=== PATIENT | female | born 1950 | race Caucasian/White ===

== ENCOUNTER 2020-01-28 10:02 | Outpatient (CLI) | payer MEDICARE, OTHER, SELFPAY ==
--- NOTE | 2020-01-28 10:17 | MM_ITS ---
WS: [id number] DIAGNOSTIC BILATERAL DIGITAL MAMMOGRAM WITH CAD LEFT breast ultrasound, limited HISTORY: LT BREAST MASS COMPARISON: 02/08/2019, 01/24/2019, 12/28/2017. TECHNIQUE: Bilateral craniocaudad, mediolateral oblique, and mediolateral views are submitted. Spot c ompression LEFT MLO. Computer aided detection utilized. Breast composition: There are scattered areas of fibroglandular density. Palpable marker is placed in ferior and just medial to the nipple. There is no underlying soft tissue abnormality identified. No s kin thickening or distortion. LEFT breast ultrasound, limited. Ultrasound is directed to the palpable abnormality at 7:00. There is no abnormality identified. No ma ss or soft tissue thickening or increased vascularity. MM/[place] [id number] IMPRESSION: BI-RADS: 2-Benign FOLLOW UP: 1 Year Follow-up
== END 2020-01-28 10:03 | disposition home or self-care (01) ==
LOC: RADSHAW 10:05
PROVIDERS: Family Provider Family Medicine; PCP Family Medicine; Visit Provider Family Medicine
DX: N63.20 Unspecified lump in the left breast, unspecified quadrant (principal)
CPT/HCPCS: 76642; 77066

== ENCOUNTER → 2020-05-07 08:14 | Outpatient (BNVA) | payer MEDICARE, OTHER, SELFPAY | PROVIDERS: Family Provider Family Medicine; PCP Family Medicine; Visit Provider Specialist | DX: M17.0 Bilateral primary osteoarthritis of knee (principal) | CPT/HCPCS: 73560; 73565 ==

== ENCOUNTER → 2020-05-09 08:17 | Outpatient (BNVA) | payer MEDICARE, OTHER, SELFPAY | PROVIDERS: Family Provider Family Medicine; PCP Family Medicine; Referring Provider Specialist; Visit Provider Anesthesiology Pain Medicine | DX: M16.11 Unilateral primary osteoarthritis, right hip (principal); M17.0 Bilateral primary osteoarthritis of knee; Z79.891 Long term (current) use of opiate analgesic | CPT/HCPCS: 99204 ==

== ENCOUNTER → 2020-05-14 13:58 | Outpatient (BNVA) | payer MEDICARE, OTHER, SELFPAY | PROVIDERS: Family Provider Family Medicine; PCP Family Medicine; Visit Provider Anesthesiology Pain Medicine | DX: M16.11 Unilateral primary osteoarthritis, right hip (principal); Z79.891 Long term (current) use of opiate analgesic | CPT/HCPCS: 20610; 77002; 77003; J1030; J3490 ==

== ENCOUNTER → 2020-05-30 09:25 | Outpatient (BNVA) | payer MEDICARE, OTHER, SELFPAY | PROVIDERS: Family Provider Family Medicine; PCP Family Medicine; Visit Provider Anesthesiology Pain Medicine | DX: M17.0 Bilateral primary osteoarthritis of knee (principal); M16.11 Unilateral primary osteoarthritis, right hip; Z79.01 Long term (current) use of anticoagulants | CPT/HCPCS: 99212; G0463 ==

== ENCOUNTER → 2020-06-12 09:30 | Outpatient (BNVA) | payer MEDICARE, OTHER, SELFPAY | PROVIDERS: Family Provider Family Medicine; PCP Family Medicine; Visit Provider Specialist | DX: M16.11 Unilateral primary osteoarthritis, right hip (principal) | CPT/HCPCS: 73502 ==

== ENCOUNTER → 2020-06-18 09:37 | Outpatient (BNVA) | payer MEDICARE, OTHER, SELFPAY | PROVIDERS: Family Provider Family Medicine; PCP Family Medicine; Visit Provider Internal Medicine Pulmonary Disease | DX: Z20.828 Contact with and (suspected) exposure to other viral communicable diseases (principal) | CPT/HCPCS: 87635 ==

== ENCOUNTER 2020-06-23 13:25 | Outpatient (CLI) | payer MEDICARE, OTHER, SELFPAY ==
--- NOTE | 2020-06-23 13:36 | CT_ITS ---
WS: [id number] LDCT LUNG CANCER SCREENING HISTORY: HX OF TOBACCO USE TECHNIQUE: Axial imaging performed from the apices to 1 cm below the costophrenic angles. Coronal and sagittal reformats are submitted with axial MIP series. All CT scans at [facility] use at least one of these dose optimization techniques: automated exposure control; mA and/or kV adjustment per patient size (includes targeted exams where dose is matched to clinical indication); or iterativ e reconstruction. DLP: 69.69 mGy.cm DIvol: 1.97 mGy COMPARISON: None available. Diagnostic quality: Satisfactory Lung Nodules: Linear scarlike areas of atelectasis at the lung bases. No pulmonary nodules. No endobr onchial lesions are identified. Lungs: Hyperexpanded lungs with emphysema. Heart: Normal size heart. Heavy calcification along the mitral annular valve plane. Moderate calcific ations in the [place] coronary arteries. Other findings: Mild atherosclerosis aorta. Mildly enlarged pulmonary artery. CT/CT lung screening [id number] IMPRESSION: LUNG-RADS: 1-Negative FOLLOW UP: 12 Month: Continue annual screening with LDCT OTHER FINDINGS (S MODIFIER): None.
--- NOTE | 2020-06-23 14:12 | PFTS_ITS ---
Date of Study:06/23/20 Date of Dictation: MECHANICS: Forced vital capacity (FVC) is normal. Forced expiratory volume in one second (FEV1) is reduced. FEV1/FVC is reduced. FLOW VOLUME LOOP: Reduced flow at all lung volumes with significant scooping. LUNG VOLUMES: Total lung capacity (TLC) is normal. Residual volume (RV) is increased. DIFFUSING CAPACITY FOR CARBON MONOXIDE: Not measured. INTERPRETATION: The pulmonary function tests are consistent with severe airflow obstruction. Lung volumes are consistent with air trapping. Gas exchange (DLCO) was not measured. MTDD
== END 2020-06-23 13:26 | disposition home or self-care (01) ==
LOC: RT 13:28
PROVIDERS: PCP Family Medicine; Visit Provider Internal Medicine Pulmonary Disease
DX: Z12.2 Encounter for screening for malignant neoplasm of respiratory organs (principal); Z87.891 Personal history of nicotine dependence
CPT/HCPCS: 94010; 94726; 94729; G0297

== ENCOUNTER → 2020-07-03 08:59 | Outpatient (BNVA) | payer MEDICARE, OTHER, SELFPAY | PROVIDERS: PCP Family Medicine; Visit Provider Specialist | DX: Z11.59 Encounter for screening for other viral diseases (principal) | CPT/HCPCS: 87635 ==

== ENCOUNTER 2020-07-08 14:50 | Observation (INO) | payer MEDICARE, OTHER, SELFPAY ==
[2020-07-01 09:32] VITALS: BMI 39.9
--- NOTE | 2020-07-01 09:51 | P.ANESASSM_ITS ---
Pre-Anesthetic Assessment Pre-Anesthetic Assessment: Height/Weight: Height 1.7 m Weight 115.666 kg Preop Diagnosis: Hip pain Proposed Procedure: Operation Date: 07/08/20 10:00 Proposed Procedures p Total Hip Arthroplasty 52648 M16.9(Right) - Veronique Keith MD Familial anesthetic complications: None Social: Comment: former smoker - quit 11 years ago Exam: Pre-Anes Outpt Exam: alert, oriented x 3, clear to auscultation bilaterally and regular rate & rhythm Airway: Cervical ROM: WNL MP: 2 Dentition: False Pulmonary: Pulmonary: COPD (4 L NC during day and trilogy at night) and Sleep apnea CV/HEM: CV/HEM: Afib (on diltiazem) and HTN GI: GI: GERD Metabolic: Metabolic: DM Musc/skel: Musc/skel: OA/DJD Anesthetic Plan: ASA status: 4 Anesthesia: General Risk of > 500 ml blood loss (7ml/kg in children): No PFSH Anesthesia PFSH: Medical History (Updated 06/17/20 @ 09:23 by Dk Turner MD) A-fib Anticoagulation adequate with anticoagulant therapy Xarelto Diabetes Essential hypertension Gout History of cellulitis 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 Morbid obesity Osteoarthritis of knees, bilateral Osteoarthritis of right hip Oxygen dependent Pain management contract signed Psoriasis Sleep apnea Surgical History History of appendectomy History of carpal tunnel release History of hysterectomy History of tonsillectomy History of tubal ligation Family History Denies family history of Anesthesia complication Social History Smoking and tobacco status: former smoker Quit status (tobacco): has quit using tobacco Year quit tobacco: 2009 [id number] Second hand smoke exposure: Yes Smoking risk assessment/counseling performed?: No Alcohol intake: current Alcohol intake frequency: holidays/special occasions only Lives independently: Yes Household members: none Housing: Apartment Marital status: Current occupational status: retired and disabled History of recent travel: No Current gender identity: Female Data Anesthesia Cardiac Studies: No Data to Display
[2020-07-01 10:28] LABS: Basophils # 0.1 10^3/uL (0.0-0.1); Eosinophils # 0.2 10^3/uL (0.0-0.8); Eosinophils % 3.4 %; Hematocrit 40.9 % (37.0-47.0); Hemoglobin 12.9 g/dL (11.5-15.3); Lymphocytes # 0.9 10^3/uL (0.8-4.8); Lymphocytes % 13.9 %; Mean Corpuscular HGB Conc 31.5 g/dL (30.0-36.0); Mean Corpuscular Volume 88.9 fL (81-99); Mean Platelet Volume 9.4 fL (7.4-10.4); Monocytes # 0.5 10^3/uL (0.2-0.9); Monocytes % 8.6 %; Neutrophils # 4.48 10^3/uL (1.8-7.7); Neutrophils % 72.6 %; Nucleated Red Blood Cells % 0 %; Platelet Count 269 10^3/cmm (130-400); Red Cell Distribution Width 12.4 % (12.1-15.1); White Blood Count 6.2 10^3/uL (4.0-10.0)
[2020-07-01 10:50] LABS: Add Urine Microscopic? YES; Alanine Aminotransferase 40 U/L (0-33); Albumin Level 4.2 g/dL (3.5-5.2); Alkaline Phosphatase 126 IU/L (35-105); Anion Gap 10.6 (5-19); Aspartate Amino Transferase 24 U/L (0-32); Bilirubin Urine Neg (Negative); Blood Urea Nitrogen 16 mg/dL (8-23); Blood Urine Neg (Negative); Carbon Dioxide 34 mmol/L (22-29); Chloride 102 mmol/L (98-107); Globulin 2.2 g/dL (1.3-4.6); Glucose 108 mg/dL (65-115); Glucose Urine UA Norm (Normal); Ketones Urine Negative (Negative); Leukocyte Esterase Urine Negative (Negative); Nitrate Urine Positive (Negative); Osmolality Calculated 296 mOsm/kg (285-295); Potassium 4.6 mmol/L (3.5-5.1); Protein Urine Neg (Negative); Sodium 142 mmol/L (136-145); Specific Gravity, Urine 1.015 (1.005-1.030); Sulfosalicylic Acid Urine Trace (Negative); Total Bilirubin 0.4 mg/dL (0.15-1.2); Total Protein 6.4 g/dL (6.6-8.7); Urine Appearance Hazy (CLEAR); Urine Color Yellow (Yellow); Urobilinogen Urine Neg (Negative); pH Urine 8 (5-7)
[2020-07-01 10:51] LABS: Bacteria Urine 4+ /hpf; WBC Urine 25-40 /hpf (0-5)
[2020-07-01 10:52] LABS: Add Urine Culture? Yes
[2020-07-08] VITALS (13 sets, daily range): BP systolic 94–128; BP diastolic 56–78; PULSE 60–85; RESP 16–24; TEMP 35.9–36.8; O2SAT 96–100
--- NOTE | 2020-07-08 10:34 | ECG_ITS ---
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 Measurements Intervals [place] Rate: 68 P: 0 W[place]: 179 QRS: -29 QRSD: 95 T: 20 QT: 393 QTc: 420 Interpretive Statements SINUS RHYTHM BORDERLINE LEFT AXIS DEVIATION [QRS AXIS < -20] LOW QRS VOLTAGE IN PRECORDIAL LEADS [QRS DEFLECTION < 1.0 mV IN CHEST LEADS] PATTERN CONSISTENT WITH PULMONARY DISEASE No previous ECG available for comparison Electronically Signed On 07-08-2020 19:25:43 SHREDDING SPECIALIST by Mimi De Santiago M.D. [email or web address]
--- NOTE | 2020-07-08 10:48 | W.PM.OPSUD ---
Surgery/Procedure H&P Update DATE OF PROCEDURE: July 08, 2020 DATE H&P PERFORMED: 06/12/20 H&P UPDATE INFORMATION: I have reviewed H&P completed within last 30 days, I have examined patient prior to procedure, No changes to prior documentation and H&P is in [facility] EMR on date indicated PREOP DIAGNOSIS: Severe degenerative osteoarthritis right hip PLANNED PROCEDURE: Operation Date: 07/08/20 10:00 Proposed Procedures p Total Hip Arthroplasty 68193 M16.9(Right) - Veronique Keith MD Related Problem List Diagnoses (1) Osteoarthritis of right hip: Qualifiers: Osteoarthritis type: primary Qualified Code(s): M16.11 - Unilateral primary osteoarthritis, right hip
[2020-07-08] MEDS: sodium chloride 0.9% 1,000 ML 30 ML IV (10:50)
[2020-07-08] MEDS: CELEcoxib 200 mg Capsule 400 MG PO (10:52)
[2020-07-08 10:55] LABS: Glucose Point of Care 93 mg/dL (70-110)
--- NOTE | 2020-07-08 10:57 | P.ANESUD_ITS ---
Pre-Anesthetic Update Pre-Anesthetic Assessment: Date of Surgery/Procedure: 07/08/20 Preop Rochelle gnosis: Severe degenerative osteoarthritis right hip Proposed Procedure: Operation Date: 07/08/20 10:00 Proposed Procedures p Total Hip Arthroplasty 15019 M16.9(Right) - Veronique Keith MD Any changes to Pre-Anesthetic Assessment?: No Last Intake: Intake Last Liquid Date 07/07/20 Last Liquid Time 21:00 Last Solid Date 07/07/20 Last Solid Time 15:00 Labs Last 48hrs: Laboratory Results - last 48 hr 07/08/20 10:54 POC Glucose 93 Vitals: Temperature 97.1 F L 07/08/20 10:29 Pulse Rate 67 07/08/20 10:29 Respiratory Rate 22 H 07/08/20 10:29 Blood Pressure 128/78 07/08/20 10:29 Blood Pressure Rosamaria n 94 07/08/20 10:29 Pulse Oximetry 98 07/08/20 10:29 Oxygen Delivery Me thod 07/08/20 10:42 Oxygen Flow Rate 4 07/08/20 10:29 Exam: Pre-Anes Outpt Exam: alert, oriented x 3, clear to auscultation bilaterally and regular rate & rhythm Other Pertinent Information: Other Pertinent Information: Patient last took rivarxaban 5 days ago Cardiac Studies: No Data to Display
[2020-07-08] MEDS: vancomycin 1,000 MG in sodium chloride 0.9% 250 ML 250 MG IV (10:59)
[2020-07-08] MEDS: ceFAZolin 1,000 mg SDV 1000 MG IRRIGATION (11:54)
[2020-07-08] MEDS: vancomycin 1,000 MG SDV 1000 MG XX (11:55)
--- NOTE | 2020-07-08 12:17 | SUR.OPER ---
1245 attempted to contact family with surgical update
--- NOTE | 2020-07-08 12:19 | SUR.OPER ---
1219 patient family updated of surgical status
--- NOTE | 2020-07-08 13:23 | SUR.OPER ---
1323 PATIENT FAMILY UPDATED OF SURGICAL STATUS.
--- NOTE | 2020-07-08 14:31 | XR_ITS ---
WS: [id number] XR pelvis 1-2V* [id number] REASON FOR EXAM: Status post right total hip arthroplasty FINDINGS: Total right hip arthroplasty. Components of the surgical appliance are in proper position and alignme nt. No bony abnormality is noted. XR/XR pelvis 1-2V* [id number] IMPRESSION: Total right hip arthroplasty with no abnormality identified.
--- NOTE | 2020-07-08 14:41 | SUR.PHASEI ---
1441 PT AWAKE ALERT ON 4LNC PRE SURGERY, PT WAS A SPINAL WITH MAC SEDATION, SPINAL LEVEL AT T-12 PT CAN MOVE BILAT TOES, OVIEDO TO DD WITH YELLOW URINE DRAINING,TO BAG, ABD PILLOW IN PLACE FIRST ICE TO RT HIP, DISTAL FOOT WITH STRONG REGULA PULSE NOTED. VSS.
--- NOTE | 2020-07-08 14:47 | P.OP_ITS ---
Operative Report Date of procedure: July 08, 2020 Pre-op Diagnosis: Severe degenerative osteoarthritis right hip Post-op diagnosis: same Post-op Findings: Morbid obesity impacting exposure with severe degenerative osteoarthritis Procedure Done: Right total hip arthroplasty utilizing the following implants from the [employer]ueroa Accolade II total hip system: The size 56 mm solid back acetabular shell with an F alpha code and an MDM liner size 46 mm inner diameter by F alpha code. An Accolade II size 8 x 127 degree neck angle hip stem, femoral head size 28 mm outer diameter with a 0 mm offset inside of an MDM insert size inner diameter 28 mm to match the 46F Implants: See procedure Specimens removed/disposition: Bone, disposed of Pathology: none sent Surgeon: Veronique Keith Peanut Picker: [facility] OR technicians Anesthesia: MAC (With spinal) Estimated blood loss (mL): 600 IV fluids (mL): 2,000 Urine output (mL): 150 Complications: None Findings: Severe degenerative osteoarthritis. The hip was stable at 90 degrees of flexion with 80 degrees of internal rotation and 30 degrees of adduction. Additionally, the hip was stable to external rotation and toe hang. Leg lengths appeared to be reestablished. Condition: stable Disposition: PACU (Then to floor for postoperative rehabilitation and pain management.) Brief History: This 70-year-old woman presented with complaints of severe hip pain limiting her ability to walk. She was unable to get up and down from a chair easily. She was unresponsive to conservative measures and wished to proceed with total hip arthroplasty. Risks and complications were discussed with her. She wished to proceed and consents were signed. Questions were answered. Procedure: Patient was brought to the operating theater. She was transferred to the operating room table and subsequently administered a spinal anesthesia with MAC, ASA 4. Following administration of adequate anesthesia, the patient was placed in full lateral position and held in position with a pegboard. The patient's right lower extremity was then prepped and draped in usual fashion utilizing DuraPrep. It was draped free. Following prepping and draping a surgical pause was performed. At the time of the surgical pause, we identified the site and side of surgery. We also identified the patient and preoperative surgical markings. Confirmation was made of equipment availability. Additionally, the patient's preoperative IV antibiotic, vancomycin 1 g and TXA 1 g preoperatively was confirmed as being given in a timely fashion and being the appropriate. An additional dose of TXA was to be given postoperatively as well. Following the surgical pause, an incision was made centering over the patient's greater trochanter continuing proximally and distally as necessary to allow access to the hip joint. Dissection continued through skin and soft tissues using a scalpel, and hemostasis was obtained using electrocautery. The tensor fascia clay was identified and incised longitudinally. Sciatic nerve was identified and protected throughout the surgical procedure. The patient had significantly increased subcutaneous fatty tissue. This made the procedure and exposure as well as access to the acetabulum and femur difficult. A Charnley U retractor was placed after the tensor fascia clay had been incised longitudinally, and the sciatic nerve had been identified. The hip had significant limitation in range of motion, and most particularly, and internal rotation. Retractors were placed, and the piriformis muscle was identified and tagged. Piriformis muscle along with the remaining short external rotators were then incised from the posterior aspect of the hip joint. These were retracted posteriorly. The capsule was entered in a T-type fashion with the edges being tagged. The head was noted to be deformed. Appropriate oste otomy was performed of the femoral neck following hip dislocation. We then evaluated the the femoral head. The femoral head was measured at this time. Additionally, we evaluated the acetabulum. The femur was retracted anteriorly. Soft tissues were retracted, osteophytes were excised, and the labrum was removed. We then began reaming. Reaming was accomplished sequentially. We reamed to a size 55 to allow for a size 56 acetabular shell. The acetabulum was impacted into position. The dome hole was filled with the appropriate metal plug. Also, we confirmed that the acetabular insert was completely seated prior to addressing the femur. After the acetabulum was in appropriate position, we placed the MDM liner without difficulty. The cup was noted to seat nicely and had good fixation upon impact. Attention was directed to the proximal femur. The proximal femur was lifted out of the wound as much as possible. A canal finder was passed with difficulty after utilization of the box chisel. The reamer was used to lateralize. We then began broaching. We broached sequentially, and placed a size 8 broach in position for trial reduction. A trial reduction was accomplished with initially with a a -4 mm femoral head inside the appropriate MDM insert. We then increased to a 0 mm offset femoral head with the appropriate MDM insert. This was able to be reduced nicely and did not feel over tight. This gave excellent stability, and with this in place, we had the above stabilities, and at that time, we felt that we had acceptable leg lengths. It had been determined preoperatively. Therefore, the 0 mm offset femoral head was chosen. Trial components were removed after the hip was dislocated. The size 8 Accolade II 127 degree neck angle hip stem was impacted into position without difficulty and onto this was placed a 0 mm offset femoral head with the appropriate MDM liner. The hip was then reduced without difficulty. With this construct, we had the above-noted stability. The stem was noted to seat nicely prior to placement of the femoral head. The wound was then copiously irrigated with 20 mL of Betadine and 500 mL of normal saline mixed together. Subsequently, we suctioned this out and irrigated the wound copiously with lactated Ringer's. Following reduction of the prosthesis once again, we confirmed the stability of the hip. Leg lengths were also felt to be satisfactory. Being satisfied with the prosthesis, attention was directed to closure. Closure was accomplished with 0 Vicryl in the capsular tissues. Piriformis was reattached with 0 Vicryl as well. Tensor fascia clay was closed with 0 Vicryl in an interrupted fashion. The subcutaneous tissues were closed with a combination of 0 Vicryl and 2-0 Monocryl. Vancomycin powder and a SurgiFlo thrombin mixture was placed into the wound as well. The skin was closed with a running 3-0 Monocryl followed by Exofin and Steri-Strips. This was covered with Telfa and Tegaderm. The patient was placed in an abduction pillow. She was returned the Recovery Room in a satisfactory condition and will be discharged to the floor for postoperative rehabilitation and pain management. There were no complications. Associated Problem List Diagnoses (1) Osteoarthritis of right hip: Qualifiers: Osteoarthritis type: primary Qualified Code(s): M16.11 - Unilateral primary osteoarthritis, right hip (2) Morbid obesity:
--- NOTE | 2020-07-08 15:07 | SUR.PHASEI ---
1500 PT TO ROOM HANDOFF AT BEDSIDE PT ALERT TALKATIVE TAKING ICE CHIPS RT HIP D/I ABD PILLOW FIRST ICE AND BILAT FOOT PUMPS IN PLACE OVIEDO TO DD WITH YELLOW URINE IN TUBING. VSS. PT DENTURES IN UPPER AND LOWER PER PT REQUEST AND PT CELL PHONE INREACH.
[2020-07-08] MEDS: lactated ringers 1,000 ML 100 ML IV (15:33)
--- NOTE | 2020-07-08 17:35 | PM.PACU ---
PACU note Post-Anesthesia Exam: awake and vital signs stable Disposition: admitted
[2020-07-08] MEDS: FUROsemide 20 mg Tablet PO (17:41)
[2020-07-08] MEDS: sennosides-docusate Tablet 2 TAB PO (17:41)
[2020-07-08] MEDS: pantoprazole DR 40 mg Tablet PO (17:41)
[2020-07-08] MEDS: calcium carbonate 500 mg Chew Tablet 1000 MG PO (17:41)
[2020-07-08] MEDS: CELEcoxib 200 mg Capsule PO (17:41)
[2020-07-08] MEDS: chlorhexidine gluconate 0.12% Btl 473 mL 30 ML MUCOUS MEM ×2 (17:42→21:30)
[2020-07-08] MEDS: iron polysaccharide complex 150 mg Capsule PO (17:42)
[2020-07-08] MEDS: potassium chloride ER 10 mEq Tablet PO (17:42)
[2020-07-09] VITALS: BP 94/51; PULSE 72; RESP 18; TEMP 36.4; O2SAT 90
[2020-07-09 03:48] LABS: Basophils % 0.4 %; Eosinophils # 0.2 10^3/uL (0.0-0.8); Eosinophils % 2.4 %; Hematocrit 33.2 % (37.0-47.0); Hemoglobin 10.2 g/dL (11.5-15.3); Lymphocytes # 0.6 10^3/uL (0.8-4.8); Lymphocytes % 8.1 %; Mean Corpuscular HGB Conc 30.7 g/dL (30.0-36.0); Mean Corpuscular Hemoglobin 28.3 pg (28.0-34.0); Mean Platelet Volume 10.3 fL (7.4-10.4); Monocytes # 0.7 10^3/uL (0.2-0.9); Monocytes % 8.6 %; Neutrophils # 6.03 10^3/uL (1.8-7.7); Neutrophils % 80.1 %; Nucleated Red Blood Cells % 0 %; Platelet Count 225 10^3/cmm (130-400); Red Blood Count 3.61 10^6/uL (4.1-5.3); Red Cell Distribution Width 12.5 % (12.1-15.1); White Blood Count 7.5 10^3/uL (4.0-10.0)
[2020-07-09 04:11] LABS: Anion Gap 9.4 (5-19); Blood Urea Nitrogen 13 mg/dL (8-23); Calcium 9.7 mg/dL (8.5-10.5); Carbon Dioxide 30 mmol/L (22-29); Chloride 103 mmol/L (98-107); Glucose 136 mg/dL (65-115); Osmolality Calculated 288 mOsm/kg (285-295); Potassium 4.4 mmol/L (3.5-5.1); Sodium 138 mmol/L (136-145)
[2020-07-09] MEDS: lactated ringers 1,000 ML 100 ML IV (04:33)
[2020-07-09 08:00] VITALS: BP 107/67; PULSE 97; RESP 17; TEMP 37; O2SAT 99
[2020-07-09] MEDS: calcium carbonate 500 mg Chew Tablet 1000 MG PO (08:20)
[2020-07-09] MEDS: dilTIAZem ER (24HR) 180 mg Capsule PO (08:20)
[2020-07-09] MEDS: metformin 500 mg Tablet PO (08:20)
[2020-07-09] MEDS: rivaroxaban 10 mg Tablet 20 MG PO (08:20)
[2020-07-09] MEDS: CELEcoxib 200 mg Capsule PO (08:20)
[2020-07-09] MEDS: aspirin 325 mg EC Tablet PO (08:20)
[2020-07-09] MEDS: lisinopril 2.5 mg Tablet PO (08:20)
[2020-07-09] MEDS: sennosides-docusate Tablet 2 TAB PO (08:20)
[2020-07-09] MEDS: cholecalciferol (vitamin D3) 1,000 unit Tablet 1000 UNIT PO (08:21)
[2020-07-09] MEDS: fluoxetine 20 mg Capsule PO (08:21)
[2020-07-09] MEDS: chlorhexidine gluconate 0.12% Btl 473 mL 30 ML MUCOUS MEM (08:21)
[2020-07-09] MEDS: FUROsemide 20 mg Tablet PO (08:21)
[2020-07-09] MEDS: pantoprazole DR 40 mg Tablet PO (08:21)
[2020-07-09] MEDS: potassium chloride ER 10 mEq Tablet PO (08:21)
[2020-07-09] MEDS: iron polysaccharide complex 150 mg Capsule PO (08:21)
[2020-07-09] MEDS: allopurinol 100 mg Tablet PO (08:21)
[2020-07-09] MEDS: mupirocin oint 22 gm 1 APPLIC NASAL (08:22)
[2020-07-09 10:54] VITALS: RESP 19
[2020-07-09] MEDS: oxyCODONE 5 mg IR Tab/Cap PO (10:54)
[2020-07-09 11:31] VITALS: BP 97/60; PULSE 85; RESP 18; O2SAT 98
[2020-07-09] MEDS: vancomycin 1,000 MG in sodium chloride 0.9% 250 ML 250 MG IV (11:44)
--- NOTE | 2020-07-09 13:15 | PC.CHAP ---
Pastoral Care Encounter/Spiritual Assessment Type of Contact [] Declined branch store manager visit [] Patient/Family/Request visit [] Outpatient visit [] Follow-up visit [] Physician referral [] Code/Alert [xx] Routine visit [] Staff referral [] Actively dying [] Patient sleeping [] Family support [] [] Out of room [] Palliative care [] [] Receiving care in room [] Pre-surgical visit [] Trauma [] Long length of stay [] ICU visit [] Other: Relational/Emotional Strength [xx] Patient feels connected with others/family/visitors/staff [] Distress [] Loneliness/isolation [] Abandonment Spirituality of Patient [xx] Person of Josette [xx] Attends Catholic of their Josette [xx] Believes in Prayer [xx] Reads Bible or Hinduism materials [] There are Spiritual issues to be addressed Rate Quoting Operator Interventions [xx] Prayer [xx] Active listening [xx] Non-anxious presence [] Spiritual/emotional support [] Crisis/trauma care [] Spiritual counseling [] Bereavement support [] Provided bereavement packet [xx] Provided Bible/devotional materials [] Provided toy/stuffed animal, coloring book to patient or family member [] Provided Communion [] Anointing/[place] [] Salvation [xx] Completed spiritual assessment [] Other: Impact on Illness or Injury [] Angry [] Fearful [] Anxious [] Often cries [] Exhaustion [] Unable to work [] Unable to attend restorationist [] Unable to walk/stand [] Unable to read [] Unable to drive [] Unable to eat/drink [] Unable to sleep [] Unable to be with family [] Patient intubated [] Other: Summary Pt very pleasant and talkative. 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 She lives at the [facility]. She hopes her hip replacement will allow her to continue activities she enjoys. Pt requested I find nurse to help her get up. I did so. Time spent with patient 12 minutes
--- NOTE | 2020-07-09 14:09 | P.DS_ITS ---
Discharge Providers Date of Admission: 07/08/20 14:50 Date of Discharge: July 09, 2020 Attending Provider at Admission: Veronique Keith MD Attending Provider at Discharge: Veronique Keith MD Primary Care Provider: Sylvia Anthony MD Diagnoses at Discharge Discharge Diagnosis (1) Osteoarthritis of right hip: Status: Acute Qualifiers: Osteoarthritis type: primary Qualified Code(s): M16.11 - Unilateral primary osteoarthritis, right hip (2) Morbid obesity: Status: Acute Reason for Visit Reason for Visit: Osteoarthritis right hip Hospital Course Hospital Course Patient was admitted for same-day surgery for total hip arthroplasty. She understood the risks and complications prior to her surgery and wished to proceed. Following her surgical intervention in the form of a right total hip arthroplasty. The procedure was well-tolerated by the patient. Postoperatively, she worked with physical therapy. She also had oral pain medication and was comfortable. She was felt to be independent enough to be able to be discharged to home. Therefore, the patient was discharged on the first postoperative day. She will follow up with me in the office as scheduled. There were no complications. Physical Exam Const: COMMON NORMALS: no acute distress, average body habitus, patient oriented x3 and alert GENERAL APPEARANCE: cooperative and comfortable ORIENTATION/CONSCIOUSNESS: Yes awake HENMT: COMMON NORMALS: normocephalic and atraumatic HEAD & SCALP: normocephalic and atraumatic Eye: GENERAL EYE: appearance normal, both eyes and all related structures Chest: COMMONS NORMALS: normal inspection of the chest Resp: COMMON NORMALS: normal respiratory effort EFFORT & INSPECTION: Yes able to speak in complete sentences and Yes symmetric chest movement Extremity: RIGHT LOWER EXTREMITY: Yes hip joint Right hip: Yes inspection (Patient hip is benign. There is minimal to no swelling.), Yes palpation (There is minimal tenderness to palpation.), Yes ROM (Not evaluated.) and Yes neurovascular exam (Intact distally with no evidence of DVT.) Neuro: COMMON NORMALS: patient oriented x3 SENSORIUM/ORIENTATION: Yes alert Psych: COMMON NORMALS: mental status grossly normal APPEARANCE: Yes grossly normal ATTITUDE: Yes calm and Yes engaged ATTENTION/CONCENTRATION: Yes att ention grossly intact Skin: COMMON NORMALS: no rashes or lesions noted GENERAL SKIN EXAM: no rashes or lesions noted Urinary Catheter Management^: Vaughan: Cath Placed During This Visit: yes, but has since been removed by the nurse Reason for Continuing Indwelling Catheter: Decision to DC Catheter Urinary Catheter Date of Insertion: 07/08/20 Urinary Catheter Time of Insertion: 11:35 Date Urinary Catheter Removed: 07/09/20 Time Urinary Catheter Discontinued: 06:00 Discharge Data Data Completed and Pending: Completed Studies During Hospitalization Category Date Time Status XR pelvis 1-2V* 7 2170 Routine Exams 07/08/20 14:31 Completed Pending at discharge Category Date Time Status Complete Blood Co unt w/Auto AM LABS Lab 07/10/20 04:00 Ordered Complete Blood Co unt w/Auto AM LABS Lab 07/11/20 04:00 Ordered Labs from last 24 hours 07/09/20 07/09/20 02:15 02:15 WBC 7.5 RBC 3.61 L Hgb 10.2 L Hct 33.2 L MCV 92.0 MCH 28.3 MCHC 30.7 RDW 12.5 Plt Count 225 MPV 10.3 Neut % (Auto) 80.1 Lymph % (Auto) 8.1 [place] % (Auto) 8.6 Eos % (Auto) 2.4 Baso % (Auto) 0.4 Neut # (Auto) 6.03 Lymph # (Auto) 0.6 L [place] # (Auto) 0.7 Eos # (Auto) 0.2 Baso # (Auto) 0.0 Nucleated RBC % (a uto) 0 Nucleated RBCs # 0.0 Sodium 138 Potassium 4.4 Chloride 103 Carbon Dioxide 30 H Anion Gap 9.4 BUN 13 Creatinine 0.5 GFR Calculation Not Reportable Glucose 136 H Calculated Osmolal ity 288 Calcium 9.7 Vitals: Last Vital Signs Temp 98.6 F 07/09/20 08:00 Pulse 85 07/09/20 11:31 Resp 18 07/09/20 11:31 BP 97/60 07/09/20 11:31 Pulse Ox 98 07/09/20 11:31 Discharge Plan Discharge Patient Disposition: Home Health Service Condition: Stable Prescriptions: New acetaminophen 500 mg Tablet 1,000 mg PO Q8H 7 Days Qty: 0 RF: 0 aspirin 325 mg Tablet,Delayed Release (Dr/Ec) 325 mg PO DAILY 15 Days Qty: 0 RF: 0 oxycodone 5 mg Tablet 5 mg PO Q4H PRN (Reason: Moderate Pain) Qty: 30 RF: 0 Continued furosemide [Lasix] 20 mg tablet 20 mg PO BID RF: 0 potassium chloride 10 mEq capsule, extended release 10 meq PO BID RF: 0 diltiazem HCl 180 mg capsule,extended release 24hr 180 mg PO DAILY RF: 0 omeprazole 20 mg capsule,delayed release(DR/EC) 20 mg PO BID RF: 0 fluoxetine 20 mg capsule 20 mg PO DAILY RF: 0 allopurinol 100 mg tablet 100 mg PO DAILY RF: 0 Xarelto 20 mg tablet 20 mg PO DAILY RF: 0 metformin 500 mg tablet 500 mg PO DAILY RF: 0 lisinopril 2.5 mg tablet 2.5 mg PO DAILY RF: 0 celecoxib [Celebrex] 200 mg capsule 200 mg PO BID RF: 0 albuterol sulfate 90 mcg/actuation HFA aerosol inhaler 2 puff INHALATION Q6H PRN (Reason: Dyspnea) RF: 0 Myrbetriq 25 mg tablet extended release 24 hr 25 mg PO DAILY RF: 0 Anoro Ellipta 62.5-25 mcg/actuation blister with device 1 inh INHALATION DAILY RF: 0 albuterol sulfate 2.5 mg /3 mL (0.083 %) solution for nebulization 2.5 mg INHALATION Q4H PRN (Reason: Shortness Of Breath) RF: 0 sulfamethoxazole-trimethoprim [Bactrim DS] 800-160 mg tablet 1 tab PO BID Qty: 20 RF: 0 docusate sodium [Stool Softener] 100 mg Capsule 100 mg PO BID RF: 0 Multi For Her 50 Plus 400-80 mcg Capsule 1 cap PO DAILY RF: 0 Held hydrocodone-acetaminophen [[place]] 5-325 mg tablet 1 tab PO BID PRN (Reason: Pain) RF: 0 Hold Instructions: Resume on 07/16/20. Discharge Orders: Discharge Order (Routine); Ordered 07/09/20 Ordered By: Veronique Keith Other Ambulatory Orders: DME: Walker (Order) Location: None Selected Ordered By: Veronique Keith Referrals: [facility] [Outside] [facility] [Outside] Veronique Keith MD [Physician] - 07/21/20 2:15 pm Discharge Diet: Advance as tolerated and Usual diet Discharge Activity: Increase activity as tolerated, Limit activity as instructed, Use walker/crutches as instructed and As per PT/OT instructions Patient Instructions: Aspirin (By mouth), Oxycodone, Rapid Release (By mouth), Total Hip Replacement (DC) Activity Restrictions/Additional Instructions: Posterior hip precautions. Maintain dressing on wound. Gait training, strengthening, and hip precautions as per physical therapy. 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
[2020-07-09 16:45] VITALS: BP 97/60; PULSE 85; RESP 18; O2SAT 98
--- NOTE | 2020-07-09 16:53 | PC.RESP ---
Pulmonary Rehab information sent to patient.
== END 2020-07-09 15:00 | disposition home health service (06) ==
LOC: MEDSURG 15:06
PROVIDERS: Admitting Provider Specialist; PCP Family Medicine; Visit Provider Specialist
PROC: (CPT 27130; principal; 2020-07-08 09:40)
DX: M16.11 Unilateral primary osteoarthritis, right hip (principal); Z87.891 Personal history of nicotine dependence; J44.9 Chronic obstructive pulmonary disease, unspecified; Z99.81 Dependence on supplemental oxygen; G47.33 Obstructive sleep apnea (adult) (pediatric); E11.9 Type 2 diabetes mellitus without complications; I48.91 Unspecified atrial fibrillation; I10 Essential (primary) hypertension; K21.9 Gastro-esophageal reflux disease without esophagitis; L40.9 Psoriasis, unspecified; E66.01 Morbid (severe) obesity due to excess calories; Z68.39 Body mass index [BMI] 39.0-39.9, adult; Z79.84 Long term (current) use of oral hypoglycemic drugs; Z79.51 Long term (current) use of inhaled steroids; Z79.891 Long term (current) use of opiate analgesic; Z79.01 Long term (current) use of anticoagulants
CPT/HCPCS: 27130; 12345; 36415; 36416; 51702; 72170; 80048; 80053; 81001; 82962; 85025; 87077; 87086; 87186; 93005; 94640; 96361; 96365; 96366; 97110; 97116; 97161; 97166; 97530; C1776; G0378; J0131; J0690; J2250; J2274; J2370; J2405; J2704; J3010; J3370; J3490; J7030; J7050; J7611

== ENCOUNTER → 2020-07-21 14:52 | Outpatient (BNVA) | payer MEDICARE, OTHER, SELFPAY | PROVIDERS: PCP Family Medicine; Visit Provider Specialist | DX: M16.11 Unilateral primary osteoarthritis, right hip (principal) | CPT/HCPCS: 73502 ==

== ENCOUNTER 2020-08-16 16:39 | Emergency (ER) | payer MEDICARE, OTHER, SELFPAY ==
[2020-08-16 16:40] VITALS: BP 147/67; PULSE 75; RESP 18; TEMP 36.9; O2SAT 98; BMI 40.8
--- NOTE | 2020-08-16 16:49 | XRR_ITS ---
PROCEDURE INFORMATION: Exam: XR Right Knee Exam date and time: 08/16/2020 4:50 PM Age: 70 years old Clinical indication: Pain; Knee; Right; Additional info: Right knee pain, trauma TECHNIQUE: Imaging protocol: XR Right knee. Views: 3 views. COMPARISON: No relevant prior studies available. FINDINGS: Bones/joints: There is osteopenia. There is extensive chondrocalcinosis compatible with calcium pyrophosphate deposition disease. There are moderate to severe diffuse osteoarthritic changes. There is deformity of the weight-bearing surface of the lateral tibia compatible with a tibial plateau fracture which is most likely old given adjacent osteophytes and sclerosis. There is a small knee joint effusion. Soft tissues: There is mild diffuse soft tissue edema. No foreign body. XR/XR knee RT 3V* [id number] IMPRESSION: 1. There is deformity of the weight-bearing surface of the lateral tibia compatible with a tibial plateau fracture which is most likely old given adjacent osteophytes and sclerosis. No significant joint effusion. 2. Osteopenia and degenerative changes are noted.
--- NOTE | 2020-08-16 16:55 | XRR_ITS ---
PROCEDURE INFORMATION: Exam: XR Right Hip with Pelvis when Performed Exam date and time: 08/16/2020 5:07 PM Age: 70 years old Clinical indication: Hip pain; Right hip; Prior surgery; Additional info: Pain/fall TECHNIQUE: Imaging protocol: XR Right hip with pelvis when performed. Views: 1 view. COMPARISON: CR XR hip RT 2-3V wo/w pel* [id number] 07/21/2020 2:59 PM FINDINGS: Tubes, catheters and devices: No hardware loosening. Bones/joints: There is a satisfactory appearance of the right hip arthroplasty. No acute fracture or dislocation. Soft tissues: Unremarkable. XR/XR hip RT 2-3V wo/w pel* [id number] IMPRESSION: No acute bony abnormality. There is a satisfactory appearance of the postoperative right hip.
--- NOTE | 2020-08-16 17:18 | W.ED.EXTPRO ---
HPI - Extremity Problem General: Chief complaint: Extremity Injury, Lower Stated complaint: RIGHT KNEE PAIN S/P FALL Time Seen by Provider: 08/16/20 16:43 History of Present Illness: HPI Narrative: 70-year-old female comes in complaining of right knee pain. She fell this morning while turning with her walker in a tight space at home since then she not been able to bear full weight on her right knee. Few months ago she had a left hip arthroplasty she does not really have any significant pain there that is acute but it is somewhat uncomfortable. Even with her walker she is not been able to bear weight she did not strike her head she did not lose consciousness denies any other injuries. MD Complaint: joint pain Onset (ago): hour(s) Pain Consistency: constant Location: right, lower extremity and knee Quality: aching Radiation: proximal Relieving factors: rest Exacerbating factors: range of motion, weight bearing, walking and palpation Associated symptoms: Deny arthralgias, chest pain, fever(s), myalgias, rash or short of breath Review of Systems Const: Denies: fever(s) ENMT: Denies: throat pain, ear or mastoid pain, nasal discharge or nasal congestion Card: Denies: chest pain Resp: Denies: dyspnea, productive cough or non-productive cough GI: Denies: abdominal pain, nausea, vomiting, hematemesis, coffee ground emesis, diarrhea, constipation, bloating, hematochezia or melena : Denies: flank pain, difficulty voiding, dysuria, urinary frequency or urinary urgency Skin/Breast: Denies: rash PFSH ED PFSH: Medical History A-fib Anticoagulation adequate with anticoagulant therapy Xarelto Diabetes Essential hypertension Gout History of cellulitis jail (current) use of opiate analgesic Morbid obesity Osteoarthritis of knees, bilateral Osteoarthritis of right hip Oxygen dependent Pain management contract signed Psoriasis Sleep apnea Surgical History History of appendectomy History of carpal tunnel release History of hysterectomy History of right hip replacement History of tonsillectomy History of tubal ligation Family History Denies family history of Anesthesia complication Social History Smoking and tobacco status: former smoker Quit status (tobacco): has quit using tobacco Year quit tobacco: 2009 [id number] Second hand smoke exposure: Yes Smoking risk assessment/counseling performed?: No Alcohol intake: current Alcohol intake frequency: holidays/special occasions only Lives independently: Yes Household members: none Housing: Apartment Marital status: Current occupational status: retired and disabled History of recent travel: No Current gender identity: Female Physical Exam Const: COMMON NORMALS: no acute distress GENERAL APPEARANCE: cooperative and comfortable ORIENTATION/CONSCIOUSNESS: Yes awake, Yes oriented to person, Yes oriented to place and Yes oriented to time Neck/C-Spine: COMMON NORMALS: no JVD Resp: COMMON NORMALS: normal respiratory effort, No retractions, No use of accessory muscles and clear to auscultation bilaterally AUSCULTATION: clear to auscultation bilaterally Cardio: COMMON NORMALS: no JVD, regular rate, regular rhythm and No murmurs present (Cardio) RATE: regular rate RHYTHM: regular rhythm GI: COMMON NORMALS: Soft to palpation and No hepatosplenomegaly present AUSCULTATION: Yes normoactive bowel sounds PALPATION: Yes Soft to palpation, No Tenderness to palpation present (GI), No Guarding due to palpation present (GI) and Yes No hepatosplenomegaly present Neuro: SENSORIUM/ORIENTATION: Yes oriented to person, Yes oriented to place and Yes oriented to time Course Vital Signs: Vital signs: Vital Signs Temperature 98.5 F 08/16/20 16:40 Pulse Rate 98 08/16/20 18:04 Respiratory Rate 18 08/16/20 18:04 Blood Pressure 132/78 08/16/20 18:04 Pulse Oximetry 99 08/16/20 18:04 MDM - Extremity (Nontraumatic) MDM Narrative: Medical decision making narrative: No acute fractures. We will go ahead and discharge home with knee immobilizer use previously prescribed hydrocodone as well as a walker follow-up with Dr. Mendosa if not improving next week Discharge Plan Discharge Patient Disposition: Home Clinical Impression: Sprain of right knee Condition: Stable Prescriptions: No Action furosemide [Lasix] 20 mg tablet 20 mg PO BID RF: 0 potassium chloride 10 mEq capsule, extended release 10 meq PO BID RF: 0 diltiazem HCl 180 mg capsule,extended release 24hr 180 mg PO DAILY RF: 0 omeprazole 20 mg capsule,delayed release(DR/EC) 20 mg PO BID RF: 0 allopurinol 100 mg tablet 100 mg PO DAILY RF: 0 Xarelto 20 mg tablet 20 mg PO DAILY RF: 0 metformin 500 mg tablet 500 mg PO DAILY RF: 0 lisinopril 2.5 mg tablet 2.5 mg PO DAILY RF: 0 celecoxib [Celebrex] 200 mg capsule 200 mg PO BID RF: 0 hydrocodone-acetaminophen [[place]] 5-325 mg tablet 1 tab PO BID PRN (Reason: Pain) RF: 0 Hold Instructions: Resume on 07/16/20. fluoxetine 20 mg capsule 10 mg PO DAILY RF: 0 albuterol sulfate 90 mcg/actuation HFA aerosol inhaler 2 puff INHALATION Q6H PRN (Reason: Dyspnea) RF: 0 clindamycin HCl 150 mg capsule 150 mg PO TID Qty: 30 RF: 0 Myrbetriq 25 mg tablet extended release 24 hr 25 mg PO DAILY RF: 0 Anoro Ellipta 62.5-25 mcg/actuation blister with device 1 inh INHALATION DAILY RF: 0 albuterol sulfate 2.5 mg /3 mL (0.083 %) solution for nebulization 2.5 mg INHALATION Q4H PRN (Reason: Shortness Of Breath) RF: 0 sulfamethoxazole-trimethoprim [Bactrim DS] 800-160 mg tablet 1 tab PO BID Qty: 20 RF: 0 docusate sodium [Stool Softener] 100 mg Capsule 100 mg PO BID RF: 0 Multi For Her 50 Plus 400-80 mcg Capsule 1 cap PO DAILY RF: 0 oxycodone 5 mg Tablet 5 mg PO Q4H PRN (Reason: Moderate Pain) Qty: 30 RF: 0 Discharge Orders: Discharge ED (Routine); Ordered 08/16/20 Ordered By: Donavan Fry Referrals: Veronique Keith MD [Physician] - Activity Restrictions/Additional Instructions: Follow-up with Dr. Mendosa early next week. Use previously prescribed pain medications. Wear knee immobilizer anytime you are up or active and use with walker. Coding Level of Care Code ED Automobile Insurance Claim Examiner for Chg Fwd Exam Detailed
[2020-08-16 18:04] VITALS: BP 132/78; PULSE 98; RESP 18; O2SAT 99
[2020-08-16 18:57] VITALS: BP 132/78; PULSE 98; RESP 18; O2SAT 99
== END 2020-08-16 18:57 | disposition home or self-care (01) ==
PROVIDERS: Emergency Provider Family Medicine; PCP Family Medicine
DX: S83.91XA Sprain of unspecified site of right knee, initial encounter (principal); Z79.84 Long term (current) use of oral hypoglycemic drugs; I48.91 Unspecified atrial fibrillation; E11.9 Type 2 diabetes mellitus without complications; I10 Essential (primary) hypertension; Z87.891 Personal history of nicotine dependence; W19.XXXA Unspecified fall, initial encounter
CPT/HCPCS: 12345; 29530; 73502; 73562; 99283

== ENCOUNTER → 2020-09-29 08:20 | Outpatient (BNVA) | payer MEDICARE, OTHER, SELFPAY | PROVIDERS: PCP Family Medicine; Visit Provider Specialist | DX: Z47.1 Aftercare following joint replacement surgery (principal); Z96.641 Presence of right artificial hip joint | CPT/HCPCS: 73502 ==

== ENCOUNTER 2021-02-05 13:02 | Outpatient (CLI) | payer MEDICARE, OTHER, SELFPAY ==
--- NOTE | 2021-02-05 13:07 | MM_ITS ---
WS: [id number] BILATERAL DIGITAL SCREENING MAMMOGRAM WITH CAD CLINICAL INFORMATION: SCREENING HISTORY: Screening mammogram. No current complaints. COMPARISON: January 28, 2020 TECHNIQUE: Bilateral CC and MLO views. FINDINGS: Fatty-replaced breasts bilaterally. No suspicious focal mass, asymmetry, calcifications, or naval architect ural distortion. No evidence of malignancy. A few punctate and lucent centered calcifications. A few incidental intramammary lymph nodes. MM/[id number] IMPRESSION: BI-RADS: 2-Benign FOLLOW UP: 1 Year Follow-up Recommend return to annual screening mammography.
== END 2021-02-05 13:03 | disposition home or self-care (01) ==
LOC: RADSHAW 13:06
PROVIDERS: PCP Family Medicine; Visit Provider Family Medicine
DX: Z12.31 Encounter for screening mammogram for malignant neoplasm of breast (principal)
CPT/HCPCS: 77067

== ENCOUNTER → 2021-04-02 08:32 | Outpatient (BNVA) | payer MEDICARE, OTHER, SELFPAY | PROVIDERS: PCP Family Medicine; Referring Provider Family Medicine; Visit Provider Podiatrist Foot & Ankle Surgery | DX: M79.671 Pain in right foot (principal); M79.672 Pain in left foot | CPT/HCPCS: 73630 ==

== ENCOUNTER 2021-06-24 09:44 | Outpatient (CLI) | payer MEDICARE, OTHER, SELFPAY ==
--- NOTE | 2021-06-24 09:58 | CT_ITS ---
WS: [id number] LDCT LUNG CANCER SCREENING HISTORY: HISTORY OF TOBACCO USE TECHNIQUE: Axial imaging performed from the apices to 1 cm below the costophrenic angles. Coronal and sagittal reformats are submitted with axial MIP series. All CT scans at [facility] use at least one of these dose optimization techniques: automated exposure control; mA and/or kV adjustment per patient size (includes targeted exams where dose is matched to clinical indication); or iterativ e reconstruction. DLP: 53.79 mGy.cm DIvol: 1.58 mGy COMPARISON: 06/23/2020 Diagnostic quality: Satisfactory Lung Nodules: No pulmonary nodules or endobronchial lesions. Lungs: Lungs are hyperinflated with marked emphysema as seen on the prior examination. Scarlike atele ctasis in the lingula. Heart: Heart size is normal. No pericardial effusion. Other findings: Mild atherosclerosis aorta. Pulmonary artery appears large as on the prior examinatio n. Small hiatal hernia. CT/CT lung screening [id number] IMPRESSION: LUNG-RADS: 1-Negative FOLLOW UP: 12 Month: Continue annual screening with LDCT OTHER FINDINGS (S MODIFIER): None.
== END 2021-06-24 09:45 | disposition home or self-care (01) ==
LOC: RAD 09:52
PROVIDERS: PCP Family Medicine; Visit Provider Internal Medicine Pulmonary Disease
DX: Z12.2 Encounter for screening for malignant neoplasm of respiratory organs (principal); Z87.891 Personal history of nicotine dependence
CPT/HCPCS: 71271

== ENCOUNTER → 2021-12-24 09:57 | Outpatient (BNVA) | payer MEDICARE, OTHER, SELFPAY | PROVIDERS: PCP Family Medicine; Visit Provider Internal Medicine Pulmonary Disease | DX: J44.9 Chronic obstructive pulmonary disease, unspecified (principal); E66.01 Morbid (severe) obesity due to excess calories; G47.30 Sleep apnea, unspecified; Z12.2 Encounter for screening for malignant neoplasm of respiratory organs; Z79.01 Long term (current) use of anticoagulants; Z99.81 Dependence on supplemental oxygen | CPT/HCPCS: 99214 ==

== ENCOUNTER → 2021-12-28 09:55 | Outpatient (BNVA) | payer MEDICARE, OTHER, SELFPAY | PROVIDERS: PCP Family Medicine; Referring Provider Family Medicine; Visit Provider Surgery | DX: K64.9 Unspecified hemorrhoids (principal) | CPT/HCPCS: 99204 ==

== ENCOUNTER → 2021-12-31 12:12 | Outpatient (BNVA) | payer MEDICARE, OTHER, SELFPAY | PROVIDERS: PCP Family Medicine; Visit Provider Internal Medicine Cardiovascular Disease | DX: I10 Essential (primary) hypertension (principal); I48.91 Unspecified atrial fibrillation; Z79.01 Long term (current) use of anticoagulants; E11.42 Type 2 diabetes mellitus with diabetic polyneuropathy; G47.30 Sleep apnea, unspecified; Z99.81 Dependence on supplemental oxygen; E66.9 Obesity, unspecified; Z68.33 Body mass index [BMI] 33.0-33.9, adult; Z87.891 Personal history of nicotine dependence; Z79.84 Long term (current) use of oral hypoglycemic drugs | CPT/HCPCS: 99213 ==

== ENCOUNTER → 2022-02-16 09:25 | Outpatient (BNVA) | payer MEDICARE, OTHER, SELFPAY | PROVIDERS: PCP Family Medicine; Visit Provider Podiatrist Foot & Ankle Surgery | DX: L60.3 Nail dystrophy (principal); E11.42 Type 2 diabetes mellitus with diabetic polyneuropathy; L84 Corns and callosities | CPT/HCPCS: 11055; 11721 ==

== ENCOUNTER 2022-02-18 10:45 | Outpatient (CLI) | payer MEDICARE, OTHER, SELFPAY ==
--- NOTE | 2022-02-18 11:28 | MM_ITS ---
WS: [id number] VIEWS: MLO and CC views both breasts. 3D digital tomosynthesis is also included in this exam. Comparison made with prior exam of 01/12/2017, 01/17/2018, 01/24/2019, 01/28/2020, 02/05/2021.. Findings: There was no sign of mass, architectural distortion or suspicious calcification in either breast. Fa tty MM/[id number] Impression: BI-RADS: 2-Benign FOLLOW-UP: 1 Year Follow-up This mammogram was also analyzed by the Computer Aided Detection System R2 Imag e Utility Manager.
== END 2022-02-18 10:46 | disposition home or self-care (01) ==
LOC: RAD 10:49
PROVIDERS: PCP Family Medicine; Visit Provider Family Medicine
DX: M17.0 Bilateral primary osteoarthritis of knee (principal); Z12.31 Encounter for screening mammogram for malignant neoplasm of breast; Z71.89 Other specified counseling
CPT/HCPCS: 20610; 77063; 77067; J1100; J2795; J3301

== ENCOUNTER → 2022-05-11 07:52 | Outpatient (BNVA) | payer MEDICARE, OTHER, SELFPAY | PROVIDERS: PCP Family Medicine; Visit Provider Podiatrist Foot & Ankle Surgery | DX: E11.42 Type 2 diabetes mellitus with diabetic polyneuropathy (principal); L60.3 Nail dystrophy; L84 Corns and callosities; Z79.84 Long term (current) use of oral hypoglycemic drugs | CPT/HCPCS: 11055; 11721 ==

== ENCOUNTER → 2022-05-27 07:59 | Outpatient (BNVA) | payer MEDICARE, OTHER, SELFPAY | PROVIDERS: PCP Family Medicine; Visit Provider Specialist | DX: M17.0 Bilateral primary osteoarthritis of knee (principal) | CPT/HCPCS: 20610; J1100; J2795; J3301 ==

== ENCOUNTER 2022-06-21 08:10 | Outpatient (CLI) | payer MEDICARE, OTHER, SELFPAY ==
--- NOTE | 2022-06-21 08:30 | CT_ITS ---
WS: [id number] LDCT LUNG CANCER SCREENING TECHNIQUE: Noncontrast CT of the chest with coronal and sagittal reformatted images. CLINICAL INFORMATION: annual lung scree COMPARISON: June 24, 2021 DLP: 72.69 mGy.cm DIvol: Mean CTDIvol: 1.60 (mGy) All CT scans at [facility] use at least one of these dose optimization techniques: automat ed exposure control; mA and/or kV adjustment per patient size (includes targeted exams where dose is matched to clinical indication); or iterative reconstruction. FINDINGS: Advanced chronic emphysematous changes. No acute pulmonary infiltrates. No focal pneumonia or pleural fluid. Aortic calcification. Coronary calcification. Prominent main pulmonary arteries can be seen with pulm onary arterial hypertension unchanged. No mediastinal or hilar lymphadenopathy. No axillary lymphaden opathy. Small esophageal hiatal hernia. Splenic artery calcification. Adrenal glands are normal. Mild thoraci c curve with mild thoracic kyphosis. Disc space narrowing thoracic spine. CT/CT lung screening [id number] IMPRESSION: LUNG-RADS: 1-Negative FOLLOW UP: 12 Month: Continue annual screening with LDCT
== END 2022-06-21 08:11 | disposition home or self-care (01) ==
LOC: RAD 08:12
PROVIDERS: PCP Family Medicine; Visit Provider Internal Medicine Pulmonary Disease
DX: G47.30 Sleep apnea, unspecified (principal); Z12.2 Encounter for screening for malignant neoplasm of respiratory organs
CPT/HCPCS: 71271

== ENCOUNTER → 2022-06-24 10:07 | Outpatient (BNVA) | payer MEDICARE, OTHER, SELFPAY | PROVIDERS: PCP Family Medicine; Visit Provider Internal Medicine Pulmonary Disease | DX: J44.9 Chronic obstructive pulmonary disease, unspecified (principal); Z12.2 Encounter for screening for malignant neoplasm of respiratory organs; Z99.81 Dependence on supplemental oxygen; E66.01 Morbid (severe) obesity due to excess calories; Z79.01 Long term (current) use of anticoagulants; G47.33 Obstructive sleep apnea (adult) (pediatric); Z68.41 Body mass index [BMI] 40.0-44.9, adult; I48.91 Unspecified atrial fibrillation | CPT/HCPCS: 99214 ==

== ENCOUNTER → 2022-08-10 07:37 | Outpatient (BNVA) | payer MEDICARE, OTHER, SELFPAY | PROVIDERS: PCP Family Medicine; Visit Provider Podiatrist Foot & Ankle Surgery | DX: E11.8 Type 2 diabetes mellitus with unspecified complications (principal); E11.42 Type 2 diabetes mellitus with diabetic polyneuropathy; L60.3 Nail dystrophy; L84 Corns and callosities; Z79.84 Long term (current) use of oral hypoglycemic drugs | CPT/HCPCS: 11055; 11721 ==

== ENCOUNTER → 2022-08-26 08:16 | Outpatient (BNVA) | payer MEDICARE, OTHER, SELFPAY | PROVIDERS: PCP Family Medicine; Visit Provider Specialist | DX: M17.0 Bilateral primary osteoarthritis of knee (principal); Z71.89 Other specified counseling | CPT/HCPCS: 20610; J1100; J2795; J3301 ==

== ENCOUNTER → 2022-11-23 10:37 | Outpatient (BNVA) | payer MEDICARE, OTHER, SELFPAY | PROVIDERS: PCP Family Medicine; Visit Provider Podiatrist Foot & Ankle Surgery | DX: E11.42 Type 2 diabetes mellitus with diabetic polyneuropathy (principal); L85.1 Acquired keratosis [keratoderma] palmaris et plantaris; L60.3 Nail dystrophy; Z79.84 Long term (current) use of oral hypoglycemic drugs | CPT/HCPCS: 11721; 17110 ==

== ENCOUNTER → 2022-11-25 10:35 | Outpatient (BNVA) | payer MEDICARE, OTHER, SELFPAY | PROVIDERS: PCP Family Medicine; Visit Provider Specialist | DX: M17.0 Bilateral primary osteoarthritis of knee (principal) | CPT/HCPCS: 20610; J1100; J2795; J3301 ==

== ENCOUNTER → 2022-12-06 10:32 | Outpatient (BNVA) | payer MEDICARE, OTHER, SELFPAY | PROVIDERS: PCP Family Medicine; Visit Provider Internal Medicine | DX: I25.10 Atherosclerotic heart disease of native coronary artery without angina pectoris (principal); R06.02 Shortness of breath; Z79.01 Long term (current) use of anticoagulants; G47.30 Sleep apnea, unspecified; I10 Essential (primary) hypertension; Z99.81 Dependence on supplemental oxygen; J44.9 Chronic obstructive pulmonary disease, unspecified; E66.01 Morbid (severe) obesity due to excess calories; E11.9 Type 2 diabetes mellitus without complications; Z68.42 Body mass index [BMI] 45.0-49.9, adult; Z79.84 Long term (current) use of oral hypoglycemic drugs | CPT/HCPCS: 99214 ==

== ENCOUNTER → 2023-02-17 09:39 | Outpatient (BNVA) | payer MEDICARE, OTHER, SELFPAY | PROVIDERS: PCP Family Medicine; Visit Provider Specialist | DX: M17.0 Bilateral primary osteoarthritis of knee (principal) | CPT/HCPCS: 20610; J1100; J2795; J3301 ==

== ENCOUNTER → 2023-02-21 09:37 | Outpatient (BNVA) | payer MEDICARE, OTHER, SELFPAY | PROVIDERS: PCP Family Medicine; Visit Provider Specialist | DX: E11.8 Type 2 diabetes mellitus with unspecified complications (principal); L60.3 Nail dystrophy; L85.1 Acquired keratosis [keratoderma] palmaris et plantaris; Z79.84 Long term (current) use of oral hypoglycemic drugs; M16.12 Unilateral primary osteoarthritis, left hip | CPT/HCPCS: 11721; 17110; 73502; 99214 ==

== ENCOUNTER → 2023-02-24 13:39 | Outpatient (BNVA) | payer MEDICARE, OTHER, SELFPAY | PROVIDERS: PCP Family Medicine; Visit Provider Internal Medicine Pulmonary Disease | DX: J44.9 Chronic obstructive pulmonary disease, unspecified (principal); Z99.81 Dependence on supplemental oxygen; E66.01 Morbid (severe) obesity due to excess calories; Z79.01 Long term (current) use of anticoagulants; Z01.811 Encounter for preprocedural respiratory examination; R26.2 Difficulty in walking, not elsewhere classified; G47.33 Obstructive sleep apnea (adult) (pediatric); Z68.41 Body mass index [BMI] 40.0-44.9, adult; I48.91 Unspecified atrial fibrillation | CPT/HCPCS: 99214 ==

== ENCOUNTER 2023-03-16 19:20 | Inpatient (IN) | payer MEDICARE, OTHER, MEDICAID, SELFPAY ==
[2023-03-16] VITALS (18 sets, daily range): BP systolic 47–98; BP diastolic 36–63; PULSE 6–110; RESP 1–30; TEMP 36.2; O2SAT 91–100
--- NOTE | 2023-03-16 19:28 | ECG_ITS ---
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 Measurements Intervals [place] Rate: 107 P: 42 DE: 161 QRS: -54 QRSD: 86 T: 42 QT: 309 QTc: 414 Interpretive Statements SINUS TACHYCARDIA LEFT ANTERIOR FASCICULAR BLOCK [QRS AXIS <= -45, QR IN I, RS IN II] POSSIBLE ANTERIOR MYOCARDIAL INFARCTION , PROBABLY OLD [30 ms Q WAVE IN V3/V4, OR R < 0.2 mV IN V4] Compared to ECG 07/08/2020 10:53:44 Left anterior fascicular block now present Myocardial infarct finding now present Sinus rhythm no longer present Electronically Signed On 03-17-2023 12:30:09 CDT by Belen William M.D. [email or web address]
--- NOTE | 2023-03-16 19:31 | ED_ITS ---
HPI - SOB/Dyspnea General: Chief Complaint: Shortness of Breath/Dyspnea Stated Complaint: RESP. DISTRESS Time Seen by Provider: 03/16/23 19:23 Limitations: other History of Present Illness: HPI Narrative: Mr. Carlos is a 73-year-old lady with history of COPD, diabetes, A-fib presented the emergency department for respiratory distress. She notes worsening respiratory symptoms over the past few days. She has had some nausea and vomiting with diarrhea and poor p.o. intake. She reports compliance with her medication regimen with exception of missing her Xarelto last night. Overall course of symptoms is worsened. Intensity is severe. Apparently for EMS she appeared better however on initial exam she is somewhat somnolent, hypotensive, mottled and history is limited by acuity of condition and intermittent mental status change. Review of Systems General: Reports: 10 or more systems reviewed and unremarkable except in HPI and below PFSH ED PFSH: Medical History A-fib Diagnosed in [address] Sears/Dr. Gonzales Anticoagulation adequate with anticoagulant therapy Xarelto COPD (chronic obstructive pulmonary disease) sees Dr. Turner. Diabetes Diagnosed in 2012 and is managed by PMD Essential hypertension Diagnosed in 2004 and is on medication managed by PMD Gout Diagnosed in 2010 No pertinent past medical history Denies seizures, DVT/PE PCP: Dr. Anthony Osteoarthritis of knees, bilateral Osteoarthritis of right hip Oxygen dependent Since 1999. Psoriasis Diagnosed in 2011--not on any medication--sees Dr. Michael Sleep apnea Surgical History S/P appendectomy Performed in [address] Malik at [facility] in [place], [place] S/P carpal tunnel release Carpal tunnel release on the right side, performed in [address] Moody at [facility] in [place], [place] Carpal tunnel release on the left side, performed in [address] Medina at [place], [place] S/P cataract surgery Removal of cataract from the left eye in February [address] Ruby in [place], [place] Removal of cataract from the right eye in April [address] Ruby in [place], [place] S/P dilation and curettage Performed in [address] Jones at [facility] in [place], [place] S/P excision of lipoma Excision of Lipoma from the breast, performed in [address] Shelton at [facility] in [place], [place] Excision of Lipoma from the left breast, performed 11/22/[address] Agrawal at [facility] in [place], [place] S/P hysterectomy Vaginal procedure---thinks that her ovaries were removed---performed in February [address] Jones at [place], [place] S/P partial thyroidectomy Performed in [address] Shelton at [facility] in [place], [place] S/P thoracotomy Performed in 2001 S/P tonsillectomy Performed in [address] Malik at [facility] in [place], [place] S/P trigger finger release Bilateral, performed in [address] Chaney at [place], [place] S/P tubal ligation Laparoscopic procedure---performed in [address] Malik at [facility] in [place], [place] Status post lumbar surgery Lumbar surgery at L3/L4, performed in 1975 at [facility] Status post total hip replacement, right Right side---performed 07/08/[address] Keith at [facility] in [place], [place] Family History Father Diabetes Heart disease Sister Heart disease Breast cancer diagnosed in her 40s Denies family history of Colon cancer Ovarian cancer Hyperlipidemia Hypertension Uterine cancer Thyroid condition Stroke Social History Smoking and tobacco status: never smoked Substance/Drug Use: never Do you think of yourself as: Straight/Heterosexual Physical Exam Const: COMMON NORMALS: alert GENERAL APPEARANCE: cooperative and well developed HENMT: COMMON NORMALS: normocephalic and atraumatic HEAD & SCALP: normocephalic and atraumatic THROAT: posterior oropharynx normal Eye: COMMON NORMALS: conjunctivae normal CONJUNCTIVA: Yes conjunctivae normal SCLERA: sclerae normal Neck/C-Spine: COMMON NORMALS: supple GENERAL: Yes trachea midline Resp: COMMON NORMALS: normal respiratory effort EFFORT & INSPECTION: Yes able to speak in complete sentences Cardio: COMMON NORMALS: regular rate and regular rhythm RATE: regular rate RHYTHM: regular rhythm GI: COMMON NORMALS: Soft to palpation PALPATION: Yes Soft to palpation and No Tenderness to palpation present (GI) PERCUSSION: normal to percussion Extremity: GENERAL: Yes normal exam except as noted and No edema Neuro: COMMON NORMALS: moves all extremities SENSORIUM/ORIENTATION: Yes alert and No Orientation impaired Psych: COMMON NORMALS: mental status grossly normal and Normal thought process present THOUGHT PROCESS: Normal thought process present Procedures Central Line Placement Right IJ: Time Out Performed: Yes Patient Placed on Monitor/Pulse Ox: Yes MD Prep: mask, gown and gloves Central Line Prep: Povidone-Iodine 1% and sterile drapes applied Local Anesthetic: lidocaine 1% Amount of anesthesia used (mL): 5 Ultrasound Used for Placement: Yes Central Line Lumen Inserted: triple Post Procedure: sutured in place, good blood return, all ports aspirated, flushed, capped and sterile dressing applied Post Procedure X-Ray: tip of catheter in good position and no pneumothorax seen Patient Tolerated Procedure: well and no complications Course Vital Signs: Vital signs: Vital Signs Temperature 98.2 F 03/24/23 12:00 Pulse Rate 100 03/24/23 15:40 Respiratory Rate 18 03/24/23 12:12 Blood Pressure 138/87 03/24/23 12:00 Pulse Oximetry 94 03/24/23 12:12 Oxygen Delivery Ca thod Nasal Cannula 03/24/23 12:12 Oxygen Flow Rate 4 03/24/23 12:12 Fraction of Inspir ed Oxygen 35 03/21/23 18:00 MDM - SOB/Dyspnea Medical Decision Making 73-year-old lady presenting the emergency department for respiratory distress. She is quite ill-appearing with tachycardia and tachypnea requiring supplemental oxygen. Hypotension noted. She has evidence of inadequate endorgan perfusion with mental status change. IV fluids ordered. Limited [id number] echocardiogram reveals collapsible IVC and roughly normal to mildly decreased ejection fraction, no significant pericardial fluid or evidence of pericardial tamponade physiology. EKG notable for sinus tachycardia, left axis deviation, normal intervals, no STEMI. Laboratory studies and imaging personally reviewed and appropriately interpreted by me. Leukocytosis present. Evidence of improved respiratory status on ABG as patient had been on BiPAP for some period of time. NEVIN present. Lactic acidosis. Elevated troponin with negative range delta. During ED course patient treated with fluids, RT treatment, broad-spectrum an tibiotics, hydrocortisone as the patient does receive steroid inhalation for underlying respiratory complications, antiemetic, Protonix. She was also initiated on vasopressors. Most likely etiology of the symptoms is unclear. I suspect infectious etiology however no clear infectious etiology identified at this time. Patient has unspecified circulatory shock. The results of ED evaluation were discussed with the patient including plan for admission due to requirement for level of care not available if discharged to prevent significant worsening/deterioration. Patient agreeable with plan. Discussed with hospitalist service who was agreeable to admit patient. Medical Records I reviewed the patient's medical records. Lab Data I reviewed the patient's lab results. 03/23/23 05:00 03/23/23 05:00 Labs/Radiology: Radiology Impressions Chest/Abdomen/Pelvis CTA 03/16/23 20:12 IMPRESSION: 1. Aorta is intact. 2. Coronary artery atherosclerotic calcifications. 3. Emphysematous changes. 4. Bibasilar atelectasis versus infiltrate. 5. Small hiatal hernia. 6. Hepatic steatosis. 7. Bilateral renal cysts, negative follow-up advised. 8. Vaughan catheter in the urinary bladder. 9. Mild perinephric edema bilaterally likely reflecting renal insufficiency, please correlate for pyelonephritis. 10. Scattered prominent subcentimeter short axis mediastinal lymph nodes, nonspecific. 11. Right hip arthroplasty changes. Gallbladder Ultrasound 03/17/23 00:42 IMPRESSION: 1. Abnormal gallbladder. There is diffuse gallbladder wall thickening with numerous stones. Small caliber lumen. Consider acute cholecystitis. 2. No bile duct dilatation. 3. Moderate hepatomegaly and hepatic steatosis. 4. Marked fluid distention of the stomach. 5. RIGHT renal cyst. Renal Ultrasound 03/17/23 13:43 IMPRESSION: 1. Extremely difficult and limited evaluation of the kidneys due to body habitus. 2. Large superior pole RIGHT renal cyst. 3. No obvious hydronephrosis. Head CT 03/19/23 13:20 IMPRESSION: No CT evidence of acute intracranial hemorrhage, mass or acute infarction in the large vascular territory in the supratentorial brain. Small hypodensities in the brainstem (left ventral triston and to the right of the midline in the midbrain) are indeterminate. Acute infarctions are not excluded. ASSESSMENT: ASPECTS (Genie Stroke Program Early CT Score) is 10. ADDENDUM: 03/19/23 1438 THIS REPORT CONTAINS FINDINGS THAT MAY BE CRITICAL TO PATIENT CARE. The findings were verbally communicated via telephone conference with ALICE ACUNA at 2:36 PM CDT on 03/19/2023. The findings were acknowledged and understood. Head MRI 03/21/23 07:00 IMPRESSION: 1. Moderate motion artifact compromising MRI quality. 2. No obvious infarct or diffusion abnormality. 3. Mild atrophy and small vessel ischemic disease. Chest X-Ray 03/21/23 10:38 IMPRESSION: Patchy basilar atelectasis. Laboratory Results WBC 21.4 10^3/uL (4.0-10.0) H 03/16/23 19:40 RBC 4.95 10^6/uL (4.1-5.3) 03/16/23 19:40 Hgb 13.7 g/dL (11.5-15.3) 03/16/23 19:40 Hct 43.8 % (37.0-47.0) 03/16/23 19:40 MCV 88.5 fl (81-99) 03/16/23 19:40 MCH 27.7 pg (28.0-34.0) L 03/16/23 19:40 MCHC 31.3 g/dL (30.0-36.0) 03/16/23 19:40 RDW 14.1 % (12.1-15.1) 03/16/23 19:40 Plt Count 208 10^3/cmm (130-400) 03/16/23 19:40 MPV 9.6 fL (7.4-10.4) 03/16/23 19:40 Lymph % (Auto) Not Reportable 03/16/23 19:40 Craven % (Auto) Not Reportable 03/16/23 19:40 Lymph # (Auto) Not Reportable 03/16/23 19:40 Craven # (Auto) Not Reportable 03/16/23 19:40 Total Counted 100 (0-100) 03/16/23 19:40 Atypical Lymphs % 1.0 % (0-5) 03/16/23 19:40 Absolute Neutrophils 18.2 10^3/cmm (1.4-6.5) H 03/16/23 19:40 Segmented Neutrophils 60 % 03/16/23 19:40 Abs Segm Neuts (Man) 12.8 10/cmm (1.6-7.1) H 03/16/23 19:40 Band Neutrophils 25.0 % 03/16/23 19:40 Abs Band Neuts (Man) 5.4 10^3/cmm (0.0-1.2) H 03/16/23 19:40 Absolute Lymphocytes 0.4 10^3/cmm (1.2-3.4) L 03/16/23 19:40 Lymphocytes (Manual) 1 % 03/16/23 19:40 Monocytes (Manual) 5.0 % 03/16/23 19:40 Absolute Monocytes 1.1 10^3/cmm (0.1-0.6) H 03/16/23 19:40 Eosinophils (Manual) 0 % 03/16/23 19:40 Absolute Eosinophils 0.0 10^3/cmm (0.0-0.7) 03/16/23 19:40 Basophils (Manual) 0.0 % 03/16/23 19:40 Absolute Basophils 0.0 10^3/cmm (0.0-0.2) 03/16/23 19:40 Metamyelocytes 8.0 % 03/16/23 19:40 Myelocytes 0.0 % 03/16/23 19:40 Promyelocytes 0.0 % 03/16/23 19:40 Nucleated RBCs 0.0 /100WBC (0-1) 03/16/23 19:40 Toxic Vacuolation 1+ H 03/16/23 19:40 Dohle Bodies 2+ H 03/16/23 19:40 Platelet Estimate Normal (Normal) 03/16/23 19:40 Specimen Type Arterial 03/16/23 19:15 Sample Site Radial, left 03/16/23 19:15 ABG pH 7.35 (7.35-7.45) 03/16/23 19:15 ABG pCO2 43.8 mmHg (35-45) 03/16/23 19:15 ABG pO2 206.0 mmHg (80.0-100.0) H 03/16/23 19:15 ABG HCO3 24.4 mmol/L (22-26) 03/16/23 19:15 ABG Base Excess -1.3 mmol/L (-2.0-2.0) 03/16/23 19:15 Michael Test Pos 03/16/23 19:15 Hematocrit 39.6 % (37-47) 03/16/23 19:15 O2 Delivery Device Bipap 03/16/23 19:15 FiO2 60.0 % 03/16/23 19:15 Teletypesetter ID [email or web address] 03/16/23 19:15 Sodium 140 mmol/L (136-145) 03/16/23 19:40 Potassium 4.2 mmol/L (3.5-5.1) 03/16/23 19:40 Chloride 100 mmol/L (98-107) 03/16/23 19:40 Carbon Dioxide 25 mmol/L (22-29) 03/16/23 19:40 Anion Gap 19.2 (5-19) H 03/16/23 19:40 BUN 26 mg/dL (8-23) H 03/16/23 19:40 Creatinine 2.1 mg/dL (0.5-0.9) H 03/16/23 19:40 GFR Calculation Not Reportable 03/16/23 19:40 Glucose 91 mg/dL (65-115) 03/16/23 19:40 POC Glucose 96 mg/dL (70-110) 03/16/23 19:35 Calculated Osmolality 294 mOsm/kg (285-295) 03/16/23 19:40 Lactic Acid 4.4 mmol/L (0.5-2.2) H* 03/16/23 19:40 Lactic Acid (Sepsis) 2.8 mmol/L (0.5-2.2) H 03/16/23 22:04 Calcium 10.0 mg/dL (8.5-10.5) 03/16/23 19:40 Magnesium 1.8 mg/dL (1.7-2.3) 03/16/23 19:40 Total Bilirubin 1.2 mg/dL (0.15-1.2) 03/16/23 19:40 AST 817 U/L (0-32) H 03/16/23 19:40 ALT 1104 U/L (0-33) H 03/16/23 19:40 Alkaline Phosphatase 232 U/L (35-105) H 03/16/23 19:40 Troponin T Baseline 183 ng/L (0-10) H* 03/16/23 19:40 Troponin T 120 Minute 147.0 ng/L (0-10) H 03/16/23 21:26 Delta Troponin T -36.0 ABS# (0-10) L 03/16/23 21:26 C-Reactive Protein 177.2 mg/L (0.0-4.9) H 03/16/23 19:40 NT-Pro-B Natriuret Pep 9497 pg/mL (0-125) H 03/16/23 19:40 Total Protein 5.7 g/dL (6.6-8.7) L 03/16/23 19:40 Albumin 3.6 g/dL (3.5-5.2) 03/16/23 19:40 Globulin 2.1 g/dL (1.3-4.6) 03/16/23 19:40 Lipase 19 U/L (13-60) 03/16/23 21: Procalcitonin > 100.00 ng/mL (0-0.5) H 03/16/23 19:40 TSH 2.67 uIU/mL (0.27-4.20) 03/16/23 19:40 Random Cortisol 37.77 ug/dL (2.47-19.5) H 03/16/23 21:26 Urine Color Light yellow (Yellow) 03/16/23 21: Urine Appearance Cloudy (CLEAR) A 03/16/23 21: Urine pH 6 (5-7) 03/16/23 21: Ur Specific [place] 1.010 (1.005-1.030) 03/16/23 21:23 Urine Protein 1+ (Negative) H 03/16/23 21: Urine Glucose (UA) Norm (Normal) 03/16/23 21: Urine Ketones Negative (Negative) 03/16/23 21: Urine Blood 2+ (Negative) H 03/16/23 21: Urine Nitrate Negative (Negative) 03/16/23 21: Urine Bilirubin Neg (Negative) 03/16/23 21: Urine Urobilinogen 1 mg/dL (Negative) H 03/16/23 21:23 Ur Leukocyte Esterase 1+ (Negative) H 03/16/23 21:23 Urine RBC 5-10 /hpf (0-2) H 03/16/23 21:23 Urine WBC 15-25 /hpf (0-5) H 03/16/23 21:23 Ur Squamous Epith Cells 25-40 /hpf (0-5) H 03/16/23 21:23 Amorphous Sediment 2+ /hpf 03/16/23 21:23 Urine Bacteria 2+ /hpf (NONE) H 03/16/23 21:23 Urine Mucus 2+ /hpf 03/16/23 21:23 Salicylates < 0.3 mg/dL (3-10) L 03/16/23 19:40 Acetaminophen < 5.0 ug/mL (10-30) L 03/16/23 19:40 Ethyl Alcohol < 10 mg/dL (0-10) 03/16/23 19:40 Hepatitis A IgM Ab Non-reactive (Nonreactive) 03/16/23 19:40 Hep Bs Antigen Non-reactive (Nonreactive) 03/16/23 19:40 Hep B Core IgM Ab Non-reactive (Nonreactive) 03/16/23 19:40 Hepatitis C Antibody Non-reactive (Nonreactive) 03/16/23 19:40 Critical Care Time Critical Care Time: Critical Care Time: Yes Total Critical Care Time: 60 Attestation: Due to a high probability of clinically significant, possibly life threatening deterioration, the patient required my highest level of attention and preparedness to intervene emergently and I personally spent this critical care time directly and personally managing the patient. This critical care time included obtaining a history; examining the patient; pulse oximetry; ordering and review of laboratory and imaging studies; arranging urgent treatment with development of a management plan; evaluation of patient's response to treatment; frequent reassessment; and, discussions with other providers as applicable. It was exclusive of separately billable procedures. Primary system involved is cardiopulmonary Discharge Plan Discharge Patient Disposition: Admitted As Inpatient Admit Provider: [place] Clinical Impression: Shock circulatory Condition: Serious Discharge Diet: As Directed, Low Cholesterol and Low Fat Discharge Activity: Increase activity as tolerated and As per PT/OT instructions Coding Level of Care Code ED Synthetic Department Supervisor for Belkys Herrera
--- NOTE | 2023-03-16 19:32 | XRR_ITS ---
PROCEDURE INFORMATION: Exam: XR Chest Exam date and time: 03/16/2023 7:50 PM Age: 73 years old Clinical indication: Shortness of breath; Additional info: Resp distress TECHNIQUE: Imaging protocol: Radiologic exam of the chest. Views: 1 view. COMPARISON: CT lung screening [id number] 06/21/2022 8:24 AM FINDINGS: Lungs: Unremarkable. No consolidation. Pleural spaces: Unremarkable. No pleural effusion. No pneumothorax. Heart/Mediastinum: Unremarkable. No cardiomegaly. Bones/joints: Unremarkable. XR/XR chest 1V portable [id number] IMPRESSION: No acute findings.
[2023-03-16] MEDS: sodium chloride 0.9% 1,000 ML 999 ML IV ×3 (19:39→22:28)
[2023-03-16 19:59] LABS: Hematocrit 43.8 % (37.0-47.0); Hemoglobin 13.7 g/dL (11.5-15.3); Mean Corpuscular HGB Conc 31.3 g/dL (30.0-36.0); Mean Corpuscular Hemoglobin 27.7 pg (28.0-34.0); Mean Corpuscular Volume 88.5 fl (81-99); Mean Platelet Volume 9.6 fL (7.4-10.4); Platelet Count 208 10^3/cmm (130-400); Red Blood Count 4.95 10^6/uL (4.1-5.3); Red Cell Distribution Width 14.1 % (12.1-15.1); White Blood Count 21.4 10^3/uL (4.0-10.0)
[2023-03-16 20:01] LABS: ABG PCO2 43.8 mmHg (35-45); ABG PH Result 7.35 (7.35-7.45); Arterial Blood Gas Hematocrit 39.6 % (37-47); Base Excess ABG -1.3 mmol/L (-2.0-2.0); Blood Gas Allen Test Pos; Blood Gas Sample Type Arterial; HCO3 ABG 24.4 mmol/L (22-26)
[2023-03-16 20:02] LABS: Blood Gas Sample Site Radial, left; Oxygen Device BIPAP
[2023-03-16 20:11] LABS: Slide Review Slide Review Perform
--- NOTE | 2023-03-16 20:12 | CTR_ITS ---
PROCEDURE INFORMATION: Exam: CTA Abdomen and Pelvis With Contrast Exam date and time: 03/16/2023 9:50 PM Age: 73 years old Clinical indication: Other: Resp distress; Other: Back pain; Additional info: Sirs, resp distress, back pain TECHNIQUE: Imaging protocol: Computed tomographic angiography of the abdomen and pelvis with contrast. Exam focused on the arteries. 3D rendering (Not supervised by radiologist): MIP and/or 3D reconstructed images were created by the technologist. Radiation optimization: All CT scans at this facility use at least one of these dose optimization techniques: automated exposure control; mA and/or kV adjustment per patient size (includes targeted exams where dose is matched to clinical indication); or iterative reconstruction. Contrast material: OMNI 350; Contrast volume: 100 ml; Contrast route: INTRAVENOUS (IV); REPORTING DATA: Count of CT and Cardiac NM exams in prior 12 months: This patient has received [address] and 0 known cardiac nuclear medicine studies in the 12 months prior to the current study. COMPARISON: CT lung screening [id number] 06/21/2022 8:24 AM RADIATION DOSE METRICS: Total DLP (mGy-cm): 886.6 FINDINGS: Lungs: Emphysematous changes. Bibasilar atelectasis versus infiltrate. Coronary arteries: Coronary artery atherosclerotic calcifications. Diaphragm: Small hiatal hernia. Aorta: No aortic aneurysm. No aortic dissection. Celiac trunk and mesenteric arteries: No occlusion or significant stenosis. Renal arteries: No occlusion or significant stenosis. Right iliac arteries: No occlusion or significant stenosis. Left iliac arteries: No occlusion or significant stenosis. Liver: Hepatic steatosis. Gallbladder and bile ducts: Unremarkable. No calcified stones. No ductal dilation. Pancreas: Unremarkable. No mass. No ductal dilation. Spleen: Unremarkable. No splenomegaly. Adrenal glands: Unremarkable. No mass. Kidneys and ureters: Bilateral renal cysts, negative follow-up advised. Mild perinephric edema bilaterally likely reflecting renal insufficiency, please correlate for pyelonephritis. Stomach and bowel: Unremarkable. No obstruction. No mucosal thickening. Appendix: No evidence of appendicitis. Intraperitoneal space: Unremarkable. No free air. No significant fluid collection. Lymph nodes: Scattered prominent subcentimeter short axis mediastinal lymph nodes, nonspecific. Urinary bladder: Vaughan catheter in the urinary bladder. Reproductive: Unremarkable as visualized. Bones/joints: Right hip arthroplasty changes. Soft tissues: Unremarkable. CT/CT patricia vicente abdpel [id number] IMPRESSION: 1. Aorta is intact. 2. Coronary artery atherosclerotic calcifications. 3. Emphysematous changes. 4. Bibasilar atelectasis versus infiltrate. 5. Small hiatal hernia. 6. Hepatic steatosis. 7. Bilateral renal cysts, negative follow-up advised. 8. Vaughan catheter in the urinary bladder. 9. Mild perinephric edema bilaterally likely reflecting renal insufficiency, please correlate for pyelonephritis. 10. Scattered prominent subcentimeter short axis mediastinal lymph nodes, nonspecific. 11. Right hip arthroplasty changes.
[2023-03-16 20:18] LABS: Total Cells Counted 100 (0-100)
[2023-03-16 20:19] LABS: Absolute Neutrophil 18.2 10^3/cmm (1.4-6.5); Absolute Segmented Neutrophil 12.8 10/cmm (1.6-7.1); Band Neutrophils Absolute 5.4 10^3/cmm (0.0-1.2); Eosinophils 0 %; Lymphocytes 1 %; Lymphocytes Absolute 0.4 10^3/cmm (1.2-3.4); Monocytes Absolute 1.1 10^3/cmm (0.1-0.6); Platelet Estimate Normal (Normal); Segmented Neutrophils 60 %
[2023-03-16 20:20] LABS: Dohle Bodies 2+; Toxic Vacuolation 1+
[2023-03-16] MEDS: hydrocortisone 100 mg/2 mL SDV IVP (20:31)
[2023-03-16 20:33] LABS: NT Pro B Type Natriuretic Pept 9497 pg/mL (0-125)
[2023-03-16] MEDS: piperacillin-tazobactam 4.5 GM in sodium chloride 0.9% (plus) 50 ML IV (20:34)
[2023-03-16 20:36] LABS: Lactic Sepsis W/Reflex 4.4 mmol/L (0.5-2.2); Troponin(5th) Baseline 183 ng/L (0-10)
[2023-03-16] MEDS: ondansetron 2 mg/ML SDV 2 mL 4 MG IVP (20:40)
[2023-03-16 20:45] LABS: Albumin Level 3.6 g/dL (3.5-5.2); Alkaline Phosphatase 232 U/L (35-105); Anion Gap 19.2 (5-19); Blood Urea Nitrogen 26 mg/dL (8-23); C Reactive Protein 177.2 mg/L (0.0-4.9); Carbon Dioxide 25 mmol/L (22-29); Chloride 100 mmol/L (98-107); Globulin 2.1 g/dL (1.3-4.6); Glucose 91 mg/dL (65-115); Magnesium 1.8 mg/dL (1.7-2.3); Osmolality Calculated 294 mOsm/kg (285-295); Potassium 4.2 mmol/L (3.5-5.1); Sodium 140 mmol/L (136-145); Total Bilirubin 1.2 mg/dL (0.15-1.2); Total Protein 5.7 g/dL (6.6-8.7)
--- NOTE | 2023-03-16 20:48 | USCV_ITS ---
Arielle Cooper Age: 73 Gender: F : 1950 Exam Date: 03/16/2023 22:20 Ordering Phys: Dwayne Tello MD Technologist: [place] [facility] [place]: COPD, DM, history of atrial fibrillation, SOB, undifferentiated shock. No history of cardiac intervention per patient. BP: 98 / 63 HR: 95 Rhythm: Sinus Technical Quality: Adequate with [employer] MEASUREMENTS (Male / Female) Normal Values 2D ECHO LV Diastolic Diameter PLAX 4.4 cm 4.2 - 5.9 / 3.9 - 5.3 cm LV Systolic Diameter PLAX 3.1 cm IVS Diastolic Thickness 1.2 cm 0.6 - 1.0 / 0.6 - 0.9 cm IVS Systolic Thickness 1.8 cm LVPW Diastolic Thickness 1.5 cm 0.6 - 1.0 / 0.6 - 0.9 cm LVPW Systolic Thickness 1.7 cm LVOT Diameter 1.9 cm LV Ejection Fraction 2D Teich 57.4 % LV Ejection Fraction MOD 2C 54.0 % LV Ejection Fraction 2C AL 53.9 % LA Diameter 5.2 cm LA Width 4.2 cm LA Height 6.1 cm RA Width 6.3 cm RA Height 6.1 cm Aorta at Sinotubular Diameter 3.2 cm IVC Diameter 1.5 cm M-MODE Aortic Annulus Diameter 3.6 cm LA Ao Ratio MM 1.3 MV E Point Septal Separation 0.3 cm DOPPLER AV Peak Velocity 189.0 cm/s LVOT Peak Velocity 117.0 cm/s AV Area Cont Eq vti 2.1 cm squared AV Area Cont Eq pk 1.7 cm squared MV Area PHT 2.2 cm squared Mitral E to A Ratio 0.8 MV E' Velocity 69.5 cm/s Mitral E to MV E' Ratio 15.1 Mitral E to LV E' Lateral Ratio 16.6 Mitral E to LV E' Septal Ratio 13.8 TV Peak E Velocity 30.0 cm/s PV Peak Velocity 129.0 cm/s RV Acceleration Time 0.1 s RV Ejection Time 0.3 s RV AcT/ET 0.2 FINDINGS Left Ventricle Normal left ventricular size, systolic function and wall thickness, with no regional wall motion abnormalities. Left ventricular ejection fraction is estimated at 60-65 %. Grade II diastolic dysfunction, moderately elevated filling pressures. Right Ventricle Normal right ventricular size and possibly mildly decreased systolic function. RVSP could not be calculated due to incomplete tricuspid regurgitation velocity profile. Right Atrium Normal right atrial size. Left Atrium Mildly increased left atrial size. Mitral Valve Thickened mitral valve. Moderate mitral annular calcification. No mitral valve stenosis. Trace mitral valve regurgitation. Aortic Valve Probably trileaflet aortic valve. No aortic valve stenosis. No aortic valve regurgitation. Tricuspid Valve Structurally normal tricuspid valve. No tricuspid valve stenosis. Trace tricuspid valve regurgitation. Pulmonic Valve Pulmonic valve not well visualized. No pulmonary valve stenosis. Trace pulmonary valve regurgitation. Pericardium No pericardial effusion. Aorta Normal size aortic root and proxim.al ascending aorta. IVC Normal IVC dimension with >50% respiratory change of the inferior vena cava. CONCLUSIONS 1. Normal left ventricular size, systolic function and wall thickness, with no regional wall motion abnormalities. Left ventricular ejection fraction is estimated at 60-65 %. Grade II diastolic dysfunction, moderately elevated filling pressures. 2. Normal right ventricular size and possibly mildly decreased systolic function. 3. No prior similar studies to compare. Belen William MD (Electronically Signed) Final Date: 17 March 2023 05:37 S
[2023-03-16] MEDS: ipratropium-albuterol 3 mL Neb INHALATION (20:54)
[2023-03-16] MEDS: vancomycin 2,000 MG/400 ML PIGGYBACK 200 MG IV (21:02)
[2023-03-16 21:03] LABS: Alanine Aminotransferase 1104 U/L (0-33); Aspartate Amino Transferase 817 U/L (0-32)
[2023-03-16 21:08] LABS: Procalcitonin > 100.00 ng/mL (0-0.5)
--- NOTE | 2023-03-16 21:33 | ECG_ITS ---
[facility] Test Date: 2023-03-16 Pat Name: Arielle Cooper Department: Room: Gender: Female Hospitality Manager: : 1950 Requested By: Dwayne Tello Order Number: [id number] Rocky MD: Belen William M.D. Measurements Intervals [place] Rate: 96 P: 52 [place]: 171 QRS: -39 QRSD: 91 T: 57 QT: 338 QTc: 429 Interpretive Statements SINUS RHYTHM LEFT AXIS DEVIATION [QRS AXIS < -30] LOW QRS VOLTAGE IN PRECORDIAL LEADS [QRS DEFLECTION < 1.0 mV IN CHEST LEADS] PATTERN CONSISTENT WITH PULMONARY DISEASE Compared to ECG 07/08/2020 10:53:44 No significant changes Electronically Signed On 03-17-2023 4:31:38 CDT by Belen William M.D. [id number]
[2023-03-16 21:34] LABS: Acetaminophen < 5.0 ug/mL (10-30); Alcohol Level < 10 mg/dL (0-10); Salicylate < 0.3 mg/dL (3-10)
[2023-03-16 21:41] LABS: Reflex Lactate Order REFLEX LACTIC ORDERD
[2023-03-16 21:45] LABS: Hepatitis A Antibody IgM Non-Reactive (Nonreactive); Hepatitis B Core IgM Non-Reactive (Nonreactive); Hepatitis B Surface Antigen Non-Reactive (Nonreactive); Hepatitis C Virus Antibody Non-Reactive (Nonreactive)
[2023-03-16] MEDS: iohexol 350 mg/mL 500 mL Btl (per mL) IV (21:51)
[2023-03-16 21:56] LABS: Bilirubin Urine Neg (Negative); Blood Urine 2+ (Negative); Glucose Urine UA Norm (Normal); Ketones Urine Negative (Negative); Leukocyte Esterase Urine 1+ (Negative); Nitrate Urine Negative (Negative); Protein Urine 1+ (Negative); Urine Appearance Cloudy (CLEAR); Urine Color Light yellow (Yellow); Urobilinogen Urine 1 mg/dL (Negative); pH Urine 6 (5-7)
[2023-03-16 21:57] LABS: Add Urine Culture? No; Amorphous Sediment Urine 2+ /hpf; Bacteria Urine 2+ /hpf; Mucus Urine 2+ /hpf; Squamous Epithelial Cell Urine 25-40 /hpf (0-5); WBC Urine 15-25 /hpf (0-5)
[2023-03-16 21:58] LABS: Add Urine Microscopic? YES
[2023-03-16 22:27] LABS: Lactic Acid level (Lactate) 2.8 mmol/L (0.5-2.2)
[2023-03-16 23:02] LABS: Lipase 19 U/L (13-60)
[2023-03-16] MEDS: pantoprazole 40 mg SDV 80 MG IVP (23:31)
--- NOTE | 2023-03-16 23:46 | P.HP_ITS ---
Providers/Chief Complaint Admitting Physician: Los Anthony MD Primary Care Provider: Sylvia Anthony MD Chief Complaint: RESP. DISTRESS History of Present Illness Arielle Cooper is a 73 year old female that presents to the emergency department with confusion, respiratory distress, abdominal pain. Family and patient give a history that she was doing fine, until yesterday morning. At that time she started having vomiting, diarrhea, epigastric discomfort. Family went to check on her tonight, and noted she was significantly worse and appeared confused so brought her to the emergency department. In the emergency department she appeared septic, and sepsis bolus was initiated and eventually pressors. IV antibiotics were given. Patient is able to relate she has some epigastric discomfort, but does seem slightly confused. She is able to recognize me, as I have treated her before. She denies any specific shortness of breath at this time, or chest discomfort. She denies any blood in her stool, or blood in her emesis. She has had no recent medicine changes. She has had no fever. Daughter believes somebody else in the community where she lives may have been ill, but no specific ill contacts and no recent odd foods/mushrooms. In the emergency department she received some hydrocortisone, norepinephrine, Zofran, morphine. I have directed the emergency department to give another liter of fluids, and some Protonix. The ER has also already given vancomycin and Zosyn. Review of Systems General: Reports: 10 or more systems reviewed and unremarkable except in HPI and below Card: Denies: chest pain Resp: Reports: dyspnea GI: Reports: abdominal pain, nausea, vomiting and diarrhea Medications/Allergies Home Medications Medication Instructions Recorded Confirmed Last Taken Type allopurinol 100 mg tablet 100 mg PO DAILY 10/12/19 02/24/23 07/07/20 History celecoxib 200 mg capsule (Celebrex) 200 mg PO BID 10/12/19 02/24/23 07/07/20 History diltiazem HCl 180 mg 180 mg PO DAILY 10/12/19 02/24/23 07/08/20 06:30 History capsule,extended release 24 hr lisinopril 2.5 mg tablet 2.5 mg PO DAILY 10/12/19 02/24/23 07/07/20 History metformin 500 mg tablet 500 mg PO DAILY 10/12/19 02/24/23 07/07/20 History potassium chloride 10 mEq 10 meq PO BID 10/12/19 02/24/23 07/07/20 History capsule,extended release rivaroxaban 20 mg tablet (Xarelto) 20 mg PO DAILY 10/12/19 02/24/23 07/02/20 History albuterol sulfate 90 mcg/actuation 2 puff inhalation Q6H PRN Dyspnea 05/09/20 02/24/23 07/07/20 History aerosol inhaler albuterol sulfate 2.5 mg/3 mL 2.5 mg inhalation Q4H PRN 06/17/20 02/24/23 07/07/20 History (0.083 %) solution for nebulization Shortness Of Breath docusate sodium 100 mg capsule 100 mg PO BID 07/01/20 02/24/23 07/07/20 History (Stool Softener) wbbmjammgrgm-uubwbtpa-pnddo acid 1 cap PO DAILY 07/01/20 02/24/23 07/07/20 History 400 mcg-vitamin K 80 mcg capsule (Multi For Her 50 Plus) omeprazole 20 mg capsule,delayed 40 mg PO BID 11/12/20 02/24/23 Unknown History release fluoxetine 20 mg capsule 20 mg PO DAILY 12/29/20 02/24/23 Unknown History custom molded accommodative #1 ea 04/02/21 02/24/23 Unknown Rx orthotic gabapentin 100 mg capsule 100 mg PO DAILY 08/20/21 02/24/23 Unknown History mirabegron 25 mg tablet,extended 50 mg PO DAILY 12/31/21 02/24/23 Unknown History release 24 hr (Myrbetriq) furosemide 20 mg tablet (Lasix) 20 mg PO DAILY 01/27/22 02/24/23 Unknown History mupirocin 2 % topical ointment 1 applic topical TID 01/27/22 02/24/23 Unknown History oxygen-air delivery systems 01/27/22 02/24/23 Unknown History triamcinolone acetonide 0.1 % 1 applic topical TID 01/27/22 02/24/23 Unknown History topical cream clobetasol 0.05 % topical ointment 1 applic topical BID 2 weeks #45 02/02/22 02/24/23 Unknown Rx grams mupirocin 2 % topical ointment 1 applic topical BID #22 grams 02/02/22 02/24/23 Unknown Rx betamethasone dipropionate 0.05 % 1 applic topical BID #45 grams 02/09/22 02/24/23 Unknown Rx topical ointment Diabetic Shoes with 3 pairs of #1 ea 08/10/22 02/24/23 Unknown Rx inserts budesonide 160 mcg-glycopyr 9 2 inh inhalation BID #10.7 grams 02/21/23 02/24/23 Unknown Rx mcg-formot 4.8 mcg/actuation HFA inhaler (Breztri Aerosphere) Allergies Allergy/AdvReac Type Severity Reaction Status Date / Time adhesive tape Allergy ALGY-Hives Verified 02/24/23 14:04 PFSH Acute PFSH: Medical History A-fib Diagnosed in [address] Sears/Dr. Gonzales Anticoagulation adequate with anticoagulant therapy Xarelto COPD (chronic obstructive pulmonary disease) sees Dr. Turner. Diabetes Diagnosed in 2012 and is managed by PMD Essential hypertension Diagnosed in 2004 and is on medication managed by PMD Gout Diagnosed in 2010 No pertinent past medical history Denies seizures, DVT/PE PCP: Dr. Anthony Osteoarthritis of knees, bilateral Osteoarthritis of right hip Oxygen dependent Since 1999. Psoriasis Diagnosed in 2011--not on any medication--sees Dr. Michael Sleep apnea Surgical History S/P appendectomy Performed in [address] Malik at [facility] in [place], [place] S/P carpal tunnel release Carpal tunnel release on the right side, performed in [address] Moody at [place], [place] Carpal tunnel release on the left side, performed in [address] Medina at [place], [place] S/P cataract surgery Removal of cataract from the left eye in February [address] Ruby in [place], [place] Removal of cataract from the right eye in April [address] Ruby in [place], [place] S/P dilation and curettage Performed in [address] Jones at [place], [place] S/P excision of lipoma Excision of Lipoma from the breast, performed in [address] Shelton at [facility] in [place], [place] Excision of Lipoma from the left breast, performed 11/22/[address] Agrawal at [facility] in [place], [place] S/P hysterectomy Vaginal procedure---thinks that her ovaries were removed---performed in February [address] Jones at [facility] in [place], [place] S/P partial thyroidectomy Performed in [address] Shelton at [facility] in [place], [place] S/P thoracotomy Performed in 2001 S/P tonsillectomy Performed in [address] Malik at [facility] in [place], [place] S/P trigger finger release Bilateral, performed in [address] Chaney at [place], [place] S/P tubal ligation Laparoscopic procedure---performed in [address] Malik at [facility] in [place], [place] Status post lumbar surgery Lumbar surgery at L3/L4, performed in 1975 at [facility] Status post total hip replacement, right Right side---performed 07/08/[address] Keith at [facility] in [place], [place] Family History Father Diabetes Heart disease Sister Heart disease Breast cancer diagnosed in her 40s Denies family history of Colon cancer Ovarian cancer Hyperlipidemia Hypertension Uterine cancer Thyroid condition Stroke Social History Smoking and tobacco status: never smoked Substance/Drug Use: never Do you think of yourself as: Straight/Heterosexual Vitals/I&O/Wt Last Vital Signs Temp 97.1 F L 03/16/23 19:22 Pulse 96 03/16/23 23:31 Resp 16 03/16/23 23:31 BP 85/55 03/16/23 23:31 Pulse Ox 91 03/16/23 23:31 O2 Del Method BiPAP 03/16/23 20:56 O2 Flow Rate 4 03/16/23 19:22 FiO2 40 03/16/23 20:56 03/16/23 03/16/23 03/17/23 14:59 22:59 06:59 Intake Total 1190.082 / 1190.082 Balance 1190.082 / 1190.082 Weight last 48 hrs Weight 119.748 kg Physical Exam Narrative: General exam is a white female, with low blood pressure on 20 of norepinephrine currently on nasal cannula. She was previously on BiPAP. She is able to answer few questions but appears at least mildly confused. Daughter is at bedside. HEENT: Atraumatic normocephalic. Oropharynx with dry mucous membranes. Neck is supple no lymphadenopathy thyromegaly Cardiovascular regular rate and rhythm, borderline tachycardic, without murmur Lungs diminished breath sounds bilateral but no wheezes or crackles Abdomen, epigastric tenderness. No obvious organomegaly exam demonstrates Vaughan with scant urine Extremities no cyanosis clubbing or edema. A small purpleish discoloration is noted on the end of her left second toe. Skin see findings above Neuro no obvious focal deficits Urinary Catheter Management: Vaughan: Cath Placed During This Visit: yes Urinary Catheter Date of Insertion: 03/16/23 Urinary Catheter Time of Insertion: 21:15 Sepsis: Date exam was performed: 03/16/23 Time exam was performed: 23:00 Data 03/16/23 19:40 03/16/23 19:40 Other Labs: ABG demonstrates pH 7.35, PCO2 44, PO2 of 206 on BiPAP LFTs are markedly elevated with an AST of 817, ALT 1104, alk phos 232. Bilirubin is normal. Troponin is 183 with repeat of 147 CRP, procalcitonin markedly elevated. Lipase is normal. Albumin, calcium are normal Urinalysis demonstrates 5-10 red blood cells, 15-25 white blood cells, 25-40 squamous. Salicylate and acetaminophen level are undetectable. Alcohol level is undetectable. Hepatitis panel negative. I have asked the ER to run another urine, perform a urine culture as well, and get a COVID PCR which is undergoing. CTA of chest abdomen and pelvis demonstrated no pulmonary embolism, COPD is n oted. Mild perinephric edema. Bibasilar atelectasis versus infiltrate. Chest x-ray which I reviewed COPD, no obvious infiltrate EKG demonstrated sinus rhythm, left axis deviation, nonspecific ST-T wave changes Micro: Microbiology 03/16/23 20:40 Blood Culture - Preliminary Blood SPECIMEN COLLECTED 03/16/23 19:40 Blood Culture - Preliminary Blood SPECIMEN COLLECTED A&P Assessment and plan (1) Septic shock: Patient has evidence of septic shock. She has received multiple fluid boluses, and not responded adequately. She has been started on norepinephrine and this has been titrated up. Continue broad-spectrum antibiotics of vancomycin and Zosyn Urine and blood cultures been obtained. I have asked the urinalysis to be repeated secondary to squamous cells and Lactate was performed, and repeated and although decreasing still high If blood pressure does not respond consider adding vasopressin I have asked the emergency department to place a central line secondary to need for blood draws frequently as well as multiple medicine as needed to be administered centrally Etiology of sepsis is not known. It is possible she could have a UTI. CT abdomen pelvis did not demonstrate obvious etiology. We will be performing a gallbladder ultrasound as well considering her transaminitis As there is question of a bibasilar infiltrate a COVID PCR is ordered I will visit with the family and determine if she has been on any steroids rece ntly other than inhaled. From this, hydrocortisone dosing might be continued. Stat echo has been ordered Check MRSA PCR (2) Acute kidney injury: Significant acute kidney injury is noted No obstruction noted on CT Check CK Continue fluids Repeat BMP daily (3) Abdominal pain: She has some abdominal pain, and has had vomiting. Continue Protonix twice daily Transaminitis is associated with her abdominal pain. Check gallbladder ultrasound. CT scan did not demonstrate etiology. It is possible her transaminitis may all be from sepsis. Repeat LFTs tomorrow. NPO. Hepatitis panel is negative. (4) COPD (chronic obstructive pulmonary disease): Budesonide twice daily DuoNeb every 6 hours (5) Elevated troponin: Consistent with type II elevation myocardial infarction Consider further risk stratification as patient improves At this point convert to heparin drip in the interim as her Xarelto will be held in case further procedures are needed in the hospital and she has renal dysfunction. Plan History of atrial fibrillation. Continue anticoagulation. Hold diltiazem secondary to hypotension Other medical problems as outlined in past medical history Full code Heparin will suffice for DVT prophylaxis Attestations Medical Necessity Statement*: Will need greater than 2 midnight stay for evaluation and treatment of sepsis with septic shock Critical Care Time: The high probability of a clinically significant, sudden or life threatening deterioration of the patient's [pulmonary, cardiac, infectious, renal] system(s) required my full and direct attention, intervention and personal management. The critical care time is as shown. This time is in addition to time spent performing any reported procedures but includes the following: [x] Data and vital sign review and interpretation [x] Patient assessment, examination and intervention [x] Documentation [x] Medication orders and management Critical Care Time (min): 67 Coding Level of Care Code Critical Care >/= 30 minutes Critical care time (in minutes): 67 The high probability of a clinically significant, sudden or life threatening deterioration, as referenced in this documentation, required my full and direct attention, intervention and personal management. The critical care time shown is in addition to time spent performing any reported separately billable procedures and includes the following: [x] Data and vital sign review and interpretation [x ] Patient assessment, examination and intervention [x] Medication orders and management [x] Patient/Family updates as able [x] Care Coordination and Document ation. Diagnoses Septic shock A41.9; R65.21 Acute kidney injury N17.9 Abdominal pain R10.9 COPD (chronic obstructive pulmonary disease) J44.9 Elevated troponin R77.8
[2023-03-17] VITALS (289 sets, daily range): BP systolic 63–147; BP diastolic 38–97; PULSE 51–146; RESP 14–32; TEMP 36.2–37.3; O2SAT 87–98
--- NOTE | 2023-03-17 00:03 | XRR_ITS ---
PROCEDURE INFORMATION: Exam: XR Chest Exam date and time: 03/17/2023 12:07 AM Age: 73 years old Clinical indication: Other vascular access device placement or adjustment; Central line, tunnelled; Additional info: R ij cvc placement TECHNIQUE: Imaging protocol: Radiologic exam of the chest. Views: 1 view. COMPARISON: CR (CHEST, ) 03/16/2023 7:50 PM FINDINGS: Tubes, catheters and devices: Potential venous catheter tip in the superior vena cava. Lungs: Emphysematous changes. Bibasilar minimal atelectasis. Pleural spaces: Unremarkable. No pleural effusion. No pneumothorax. Heart/Mediastinum: Cardiomegaly. Bones/joints: Unremarkable. XR/XR chest 1V portable [id number] IMPRESSION: 1. Potential venous catheter tip in the superior vena cava. 2. Emphysematous changes. 3. Cardiomegaly. 4. Bibasilar minimal atelectasis.
--- NOTE | 2023-03-17 00:42 | US_ITS ---
WS: [id number] RIGHT UPPER QUADRANT ULTRASOUND HISTORY: transaminitis COMPARISON: 03/16/2023 Liver: 20.2 cm in length. Moderate hepatomegaly and hepatic steatosis. No mass or bile duct dilatatio n. Portal Vein: Normal hepatopetal flow with monophasic waveform. Gallbladder: Marked diffuse wall thickening measuring up to 1.5 cm. Numerous stones are present withi n the gallbladder. The lumen is very small caliber. Largest stone measures up to 2.0 cm. CBD: 0.6 cm, CBD become slightly more prominent towards the pancreatic head at 1.0 cm. Pancreas: Portions of the head and tail are obscured. The body is negative. Right kidney: 10.4 cm in length. Normal size kidney. Cyst upper pole measures 6.1 x 6.0 x 7.6 cm. No hydronephrosis. Aorta and IVC: Unremarkable abdominal aorta and IVC. No ascites. Marked dilatation of the stomach. US/US gall bladder [id number] IMPRESSION: 1. Abnormal gallbladder. There is diffuse gallbladder wall thickening with num erous stones. Small caliber lumen. Consider acute cholecystitis. 2. No bile duct dilatation. 3. Moderate hepatomegaly and hepatic steatosis. 4. Marked fluid distention of the stomach. 5. RIGHT renal cyst.
[2023-03-17] MEDS: sodium chloride 0.9% 500 ML 999 ML IV (00:56)
[2023-03-17] MEDS: sodium chloride 0.9% 1,000 ML 125 ML IV (00:58)
[2023-03-17] MEDS: pantoprazole 40 mg SDV IVP ×3 (00:58→23:50)
[2023-03-17 01:20] LABS: Thyroid Stimulating Hormone 2.67 uIU/mL (0.27-4.20)
[2023-03-17 01:24] LABS: Cortisol Random 37.77 ug/dL (2.47-19.5)
[2023-03-17] MEDS: heparin drip 25,000 UNIT/500 ML PREMIX 33.53 UNIT IV ×2 (01:25→20:14)
--- NOTE | 2023-03-17 01:33 | ECG_ITS ---
[facility] Test Date: 2023-03-17 Pat Name: Arielle Cooper Department: Room: ICU03 Gender: Female Bingo Caller: : 1950 Requested By: Dwayne Tello Order Number: [id number] Rocky MD: Belen William M.D. Measurements Intervals [place] Rate: 101 P: 0 OK: 0 QRS: -46 QRSD: 93 T: 55 QT: 361 QTc: 469 Interpretive Statements SINUS TACHYCARDIA PATTERN CONSISTENT WITH PULMONARY DISEASE LEFT ANTERIOR FASCICULAR BLOCK [QRS AXIS <= -45, QR IN I, RS IN II] Compared to ECG 03/16/2023 22:06:06 Left anterior fascicular block now present Sinus rhythm no longer present Left-axis deviation no longer present Electronically Signed On 03-17-2023 4:30:24 CDT by Belen William M.D. [email or web address]
--- NOTE | 2023-03-17 01:34 | PC.NURSE ---
notified- Pt bp still low mean 55, Dr Anthony called, new orders to increase max levophed dose to 30 mcg/min. Medication titrated as ordered. Clarified orders for heparin bolus, no starting heparin bolus to be administered. Orders read back and verified.
[2023-03-17] MEDS: piperacillin-tazobactam 3.375 GM in sodium chloride 0.9% (plus) 50 ML IV ×3 (01:43→17:04)
[2023-03-17 01:45] LABS: Basophils # 0.1 10^3/uL (0.0-0.1); Basophils % 0.3 %; Eosinophils % 0.1 %; Hematocrit 37.4 % (37.0-47.0); Hemoglobin 11.4 g/dL (11.5-15.3); Lymphocytes # 0.4 10^3/uL (0.8-4.8); Mean Corpuscular HGB Conc 30.5 g/dL (30.0-36.0); Mean Corpuscular Hemoglobin 27.2 pg (28.0-34.0); Mean Corpuscular Volume 89.3 fl (81-99); Mean Platelet Volume 9.5 fL (7.4-10.4); Monocytes % 4.8 %; Neutrophils # 19.67 10^3/uL (1.8-7.7); Neutrophils % 91.6 %; Nucleated Red Blood Cells % 0 %; Platelet Count 156 10^3/cmm (130-400); Red Blood Count 4.19 10^6/uL (4.1-5.3); Red Cell Distribution Width 14.2 % (12.1-15.1); White Blood Count 21.5 10^3/uL (4.0-10.0)
[2023-03-17 01:59] LABS: INR 1.48 (0.8-1.2)
[2023-03-17 02:15] LABS: Slide Review Slide Review Perform
[2023-03-17 02:23] LABS: Creatine Phosphokinase 388 U/L (26-192); Troponin 5 6HR 109.7 ng/L (0-10)
[2023-03-17] MEDS: norepinephrine 8 MG in dextrose 5 % 500 ML 91.44 MG IV (02:29)
[2023-03-17 02:37] LABS: Albumin Level 2.8 g/dL (3.5-5.2); Alkaline Phosphatase 180 U/L (35-105); Anion Gap 19.3 (5-19); Aspartate Amino Transferase 576 U/L (0-32); Blood Urea Nitrogen 28 mg/dL (8-23); Carbon Dioxide 20 mmol/L (22-29); Chloride 101 mmol/L (98-107); Globulin 2.1 g/dL (1.3-4.6); Glucose 102 mg/dL (65-115); Magnesium 1.5 mg/dL (1.7-2.3); Osmolality Calculated 288 mOsm/kg (285-295); Potassium 4.3 mmol/L (3.5-5.1); Sodium 136 mmol/L (136-145); Total Bilirubin 0.9 mg/dL (0.15-1.2); Total Protein 4.9 g/dL (6.6-8.7)
[2023-03-17 03:13] LABS: Alanine Aminotransferase 937 U/L (0-33)
[2023-03-17 03:25] LABS: Glucose Point of Care 96 mg/dL (70-110)
[2023-03-17] MEDS: perflutren protein-a microsphr 0.22 mg/mL SDV 3 mL IV (05:44)
[2023-03-17] MEDS: magnesium sulfate premix 2 GM/50 ML PIGGYBACK IV (05:47)
[2023-03-17 08:23] LABS: Partial Thromboplastin Time 144.3 SECONDS (23.9-36.7)
[2023-03-17] MEDS: sodium chloride 0.9% 1,000 ML 100 ML IV (08:52)
[2023-03-17] MEDS: fluoxetine 20 mg Capsule PO (08:52)
[2023-03-17] MEDS: norepinephrine 8 MG in dextrose 5 % 500 ML 60.96 MG IV (08:53)
[2023-03-17] MEDS: ipratropium-albuterol 3 mL Neb INHALATION ×3 (09:07→19:47)
[2023-03-17] MEDS: budesonide 0.5 mg/2 mL Neb INHALATION ×2 (09:08→19:47)
--- NOTE | 2023-03-17 09:43 | PC.PHAR ---
pt states she takes care of her own medication-pt states she no longer uses any kind of creams or ointments-pt states her myrbetriq 50mg daily filled 02/21/23 30d/s was changed to tolterodine er 2mg daily-pt states she takes lasix 40mg po one day and 20mg po the next day rx filled 02/21/23 30d/s 40mg bid-notes are made in the pharmacy comments
--- NOTE | 2023-03-17 13:43 | US_ITS ---
WS: [id number] RENAL ULTRASOUND HISTORY: Pain COMPARISON: CT 03/16/2020. TECHNIQUE: 2-D and color Doppler imaging of the kidney submitted. Right kidney: 11.5 cm x 6.4 cm x 6.2 cm. Cortex: 1.9 cm Kidney is normal size. There is a cyst from the upper pole measuring 7.9 x 7.3 x 6.5 cm. Kidney detai l is limited due to body habitus. Left kidney: 12.8 cm x 6.5 cm x 6.8 cm. Cortex: 1.6 cm Limited detail due to body habitus. Aorta: Not visualized. Urinary Bladder: Not visualized. US/US renal BI* [id number] IMPRESSION: 1. Extremely difficult and limited evaluation of the kidneys due to body habit us. 2. Large superior pole RIGHT renal cyst. 3. No obvious hydronephrosis.
--- NOTE | 2023-03-17 14:22 | P.CONIM_ITS ---
Providers/Reason For Consult Consulting Physician/Specialty*: Dr. Bro Roldan, DO/General surgery Reason for Consult*: Abdominal pain, sepsis Attending Physician: Anderson Paez MD Primary Care Provider: Sylvia Anthony MD History of Present Illness History of Present Illness Arielle Cooper is a 73 year old female who presented to the hospital with a 1 day history of epigastric abdominal pain nausea, emesis and confusion. She also reports left hip pain. She was found to be in septic shock and put on antibiotics and vasopressors. Exact cause of her sepsis is not yet known. Patient is somewhat confused. HPI and review of systems are limited secondary to this. Patient's family member is in the room with us. Labs show elevated LFTs with normal bilirubin and lipase. UA suspicious for a UTI. CT of the abdomen shows edematous kidneys. Ultrasound the gallbladder shows cholelithiasis and gallbladder wall thickening without pericholecystic fluid. Review of Systems General: Reports: 10 or more systems reviewed and unremarkable except in HPI and below Medications/Allergies Home Medications Medication Instructions Recorded Confirmed Last Taken Type allopurinol 100 mg tablet 100 mg PO QAM 10/12/19 03/17/23 07/07/20 History celecoxib 200 mg capsule (Celebrex) 200 mg PO BID 10/12/19 03/17/23 07/07/20 History lisinopril 2.5 mg tablet 2.5 mg PO BEDTIME 10/12/19 03/17/23 07/07/20 History metformin 500 mg tablet 500 mg PO QAM 10/12/19 03/17/23 07/07/20 History potassium chloride 10 mEq 10 meq PO BID 10/12/19 03/17/23 07/07/20 History capsule,extended release rivaroxaban 20 mg tablet (Xarelto) 20 mg PO BEDTIME 10/12/19 03/17/23 07/02/20 History albuterol sulfate 90 mcg/actuation 2 puff inhalation Q6H PRN 05/09/20 03/17/23 07/07/20 History aerosol inhaler Shortness Of Breath albuterol sulfate 2.5 mg/3 mL 2.5 mg inhalation Q4H PRN 06/17/20 03/17/23 07/07/20 History (0.083 %) solution for nebulization Shortness Of Breath fluoxetine 20 mg capsule 20 mg PO QAM 12/29/20 03/17/23 Unknown History custom molded accommodative #1 ea 04/02/21 03/17/23 Unknown Rx orthotic gabapentin 100 mg capsule 100 mg PO BEDTIME 08/20/21 03/17/23 Unknown History furosemide 20 mg tablet (Lasix) See Rx Instructions .Route .COMPLEX 01/27/22 03/17/23 Unknown History oxygen-air delivery systems 01/27/22 03/17/23 Unknown History Diabetic Shoes with 3 pairs of #1 ea 08/10/22 03/17/23 Unknown Rx inserts budesonide 160 mcg-glycopyr 9 2 inh inhalation BID #10.7 grams 02/21/23 03/17/23 Unknown Rx mcg-formot 4.8 mcg/actuation HFA inhaler (Breztri Aerosphere) diltiazem HCl 180 mg 180 mg PO QAM 03/17/23 03/17/23 Unknown History capsule,extended release 24 hr hydrocodone 7.5 mg-acetaminophen 1 tab PO QID PRN Pain 03/17/23 03/17/23 Unknown History 325 mg tablet multivitamin 1 tab PO QAM 03/17/23 03/17/23 Unknown History omeprazole 40 mg capsule,delayed 40 mg PO BID 03/17/23 03/17/23 Unknown History release tolterodine 2 mg capsule,extended 2 mg PO QAM 03/17/23 03/17/23 Unknown History release 24 hr Allergies Allergy/AdvReac Type Severity Reaction Status Date / Time adhesive tape Allergy ALGY-Hives Verified 03/17/23 09:29 Current Medications Generic Name Dose Route Start Last Admin Trade Name Freq PRN Reason Stop Dose Admin Albuterol/Ipratropium 3 ml 03/17/23 02:00 03/17/23 09:07 Ipratropium-Albuterol 3 Ml Neb INHALATION 3 ml Q6H.RESP KELSEY Administration Budesonide 0.5 mg 03/17/23 08:00 03/17/23 09:08 Budesonide 0.5 Mg/2 Ml Neb INHALATION 0.5 mg BID.RESPIRATORY KELSEY Administration Fluoxetine HCl 20 mg 03/17/23 09:00 03/17/23 08:52 Fluoxetine 20 Mg Capsule PO 20 mg DAILY KELSEY Administration Norepinephrine Bitartrate 4 mg 254 mls @ 0 mls/hr 03/16/23 20:00 03/17/23 01:37 / Dextrose IV Infused .Q0M KELSEY Titration Protocol Per Protocol Sodium Chloride 1,000 mls @ 100 mls/hr 03/17/23 00:42 03/17/23 08:52 Sodium Chloride 0.9% IV 100 mls/hr .Q10H KELSEY Administration Heparin Sodium/Sodium Chloride 25,000 unit in 500 mls @ 0 mls/hr 03/17/23 00:42 03/17/23 08:56 Heparin Drip IV 11.27 unit/kg/hr .Q0M KELSEY 27 mls/hr Titration Protocol Per Protocol Vasopressin 40 unit/ Sodium 40 mls @ 0.03 mls/min 03/17/23 01:00 03/17/23 08:54 Chloride IV 0 mls/min CONT KELSEY Infusion Piperacillin Sod/Tazobactam 50 mls @ 12.5 mls/hr 03/17/23 02:00 03/17/23 14:13 Sod 3.375 gm/ Sodium Chloride IV Infused Q8H KELSEY Infusion Norepinephrine Bitartrate 8 mg 508 mls @ 0 mls/hr 03/17/23 01:45 03/17/23 10:31 / Dextrose IV 14 mcg/min .Q0M KELSEY 53.34 mls/hr Titration Protocol Per Protocol Pantoprazole Sodium 40 mg 03/17/23 00:42 03/17/23 13:19 Pantoprazole 40 Mg Sdv IVP 40 mg Q12H KELSEY Administration PFSH Acute 2 PFSH: Medical History A-fib Diagnosed in [address] Sears/Dr. Gonzales Anticoagulation adequate with anticoagulant therapy Xarelto COPD (chronic obstructive pulmonary disease) sees Dr. Turner. Diabetes Diagnosed in 2012 and is managed by PMD Essential hypertension Diagnosed in 2004 and is on medication managed by PMD Gout Diagnosed in 2010 No pertinent past medical history Denies seizures, DVT/PE PCP: Dr. Anthony Osteoarthritis of knees, bilateral Osteoarthritis of right hip Oxygen dependent Since 1999. Psoriasis Diagnosed in 2011--not on any medication--sees Dr. Michael Sleep apnea Surgical History S/P appendectomy Performed in [address] Malik at [facility] in [place], [place] S/P carpal tunnel release Carpal tunnel release on the right side, performed in [address] Moody at [facility] in [place], [place] Carpal tunnel release on the left side, performed in [address] Medina at [facility], [place] S/P cataract surgery Removal of cataract from the left eye in February [address] Ruby in [place], [place] Removal of cataract from the right eye in April [address] Ruby in [place], [place] S/P dilation and curettage Performed in [address] Jones at [facility], [place] S/P excision of lipoma Excision of Lipoma from the breast, performed in [address] Shelton at [facility] in [place], [place] Excision of Lipoma from the left breast, performed 11/22/[address] Agrawal at [facility] in [place], [place] S/P hysterectomy Vaginal procedure---thinks that her ovaries were removed---performed in February [address] Jones at [facility], [place] S/P partial thyroidectomy Performed in [address] Shelton at [facility] in [place], [place] S/P thoracotomy Performed in 2001 S/P tonsillectomy Performed in [address] Malik at [facility] in [place], [place] S/P trigger finger release Bilateral, performed in [address] Chaney at [place], [place] S/P tubal ligation Laparoscopic procedure---performed in [address] Malik at [facility] in [place], [place] Status post lumbar surgery Lumbar surgery at L3/L4, performed in 1975 at [facility] Status post total hip replacement, right Right side---performed 07/08/[address] Keith at [facility] in [place], [place] Family History Father Diabetes Heart disease Sister Heart disease Breast cancer diagnosed in her 40s Denies family history of Colon cancer Ovarian cancer Hyperlipidemia Hypertension Uterine cancer Thyroid condition Stroke Social History Smoking and tobacco status: never smoked Substance/Drug Use: never Do you think of yourself as: Straight/Heterosexual Vitals/I&O/Wt Last Vital Signs Temp 99.2 F 03/17/23 00:40 Pulse 103 H 03/17/23 13:55 Resp 25 H 03/17/23 13:55 BP 86/47 03/17/23 13:55 Pulse Ox 93 03/17/23 13:55 O2 Del Method Nasal Cannula 03/17/23 09:05 O2 Flow Rate 3 03/17/23 09:05 FiO2 40 03/16/23 20:56 03/16/23 03/17/23 03/17/23 22:59 06:59 14:59 Intake Total 1190.082 / 4782.578 6284.291 / 5248.373 889.153 / 889.153 Output Total 250 / 250 Balance 1190.082 / 8564.037 0531.291 / 4998.373 889.153 / 889.153 Weight last 48 hrs Weight 274 lb 7.608 oz Weight 264 lb Physical Exam Narrative: General : Patient is well developed , no acute distress, oriented to self, confused Head : Normal cephalic, a-traumatic. Ears : Pinnae and external canal are normal. Hearing is normal. Eyes : PERRLA, Sclera and injection are normal. No conjunctival discharge. Nose : Mucous membranes are without erythema. Throat : buccal mucosa is normal, gums are without significant recession or hypertrophy. Lungs : Equal chest rise bilaterally, no use of accessory muscles, trachea is midline. Cor : Tachycardic, A-fib Abdomen : Soft, ND, diffuse tenderness without guarding or rebound, negative Osborn's Extremities : No edema, no cyanosis or clubbing, dorsalis pedis pulses are present bilaterally, non-tender to palpation of calves. Upper extremities are normal bilaterally. Back : She has positive CVA tenderness Neuro : CN II - XII intact, Upper and lower extremities have equal and full strength Urinary Catheter Management: Vaughan: Cath Placed During This Visit: yes Reason for Continuing Indwelling Catheter: Accurate Measurement of Urinary Output in Critically Ill Patients Urinary Catheter Date of Insertion: 03/16/23 Urinary Catheter Time of Insertion: 21:15 Data 03/17/23 01:36 03/17/23 01:36 Micro: Microbiology 03/16/23 20:40 Blood Culture - Preliminary Blood SPECIMEN COLLECTED 03/16/23 19:40 Blood Culture - Preliminary Blood SPECIMEN COLLECTED A&P Assessment and plan (1) Septic shock: (2) Abdominal pain: (3) Primary osteoarthritis of left hip: (4) Cholelithiasis: (5) Acute kidney injury: Plan It is possible that she has acute cholecystitis, but she has a negative Osborn sign and is being appropriately covered with antibiotics at this time. She has positive CVA tenderness and abdominal CT showed edematous kidneys. I have ordered renal ultrasound. CT is a gold standard for imaging for pyelonephritis, however she has acute kidney injury. The CTA that was done did not capture her kidneys much at all. Await blood culture and urine micro Continue antibiotics Medical management per hospitalist I do not believe she would benefit from cholecystectomy at this time. I will continue to follow and reassess. I am concerned for possible pyelonephritis Coding Level of Care Code 77623 Diagnoses Septic shock A41.9; R65.21 Abdominal pain R10.9 Primary osteoarthritis of left hip M16.12 Cholelithiasis K80.20 Acute kidney injury N17.9
[2023-03-17] MEDS: ondansetron 2 mg/ML SDV 2 mL 4 MG IVP ×3 (14:46→23:50)
--- NOTE | 2023-03-17 14:55 | P.PN_ITS ---
Subjective Subjective: Patient was seen and examined this morning, currently she is alert awake holding good conversation, was asking for pain medicine, denied any nausea vomiting, complaining of epigastric abdominal pain, Currently sees of vasopressin, Levophed requirement is also going down, she is making decent urine, Ultrasound gallbladder results have been reviewed: Surgery is on board: Her other vitals and labs have been reviewed. Medications: Medication Review Details: Generic Name Dose Route Start Last Admin Trade Name Nickoq PRN Reason Stop Dose Admin Albuterol/Ipratrop ium 3 ml 03/17/23 02:00 03/17/23 14:39 Ipratropium-Albu terol 3 Ml Neb INHALATION 3 ml Q6H.RESP KELSEY Administration Budesonide 0.5 mg 03/17/23 08:00 03/17/23 09:08 Budesonide 0.5 M g/2 Ml Neb INHALATION 0.5 mg BID.RESPIRATORY S CH Administration Fluoxetine HCl 20 mg 03/17/23 09:00 03/17/23 08:52 Fluoxetine 20 Mg Capsule PO 20 mg DAILY KELSEY Administration Norepinephrine Bit artrate 4 mg 254 mls @ 0 mls/h r 03/16/23 20:00 03/17/23 01:37 / Dextrose IV Infused .Q0M KELSEY Titration Protocol Per Protocol Sodium Chloride 1,000 mls @ 100 m ls/hr 03/17/23 00:42 03/17/23 08:52 Sodium Chloride 0.9% IV 100 mls/hr .Q10H KELSEY Administration Heparin Sodium/Sod ium Chloride 25,000 unit in 50 0 mls @ 0 mls/hr 03/17/23 00:42 03/17/23 08:56 Heparin Drip IV 11.27 unit/kg/hr .Q0M KELSEY 27 mls/hr Titration Protocol Per Protocol Vasopressin 40 uni t/ Sodium 40 mls @ 0.03 mls /min 03/17/23 01:00 03/17/23 08:54 Chloride IV 0 mls/min CONT KELSEY Infusion Piperacillin Sod/T azobactam 50 mls @ 12.5 mls /hr 03/17/23 02:00 03/17/23 14:13 Sod 3.375 gm/ So dium Chloride IV Infused Q8H KELSEY Infusion Norepinephrine Bit artrate 8 mg 508 mls @ 0 mls/h r 03/17/23 01:45 03/17/23 10:31 / Dextrose IV 14 mcg/min .Q0M KELSEY 53.34 mls/hr Titration Protocol Per Protocol Ondansetron HCl 4 mg 03/17/23 00:42 03/17/23 14:46 Ondansetron 2 Mg /Ml Sdv 2 Ml IVP 4 mg Q6H PRN Administration NAUSEA AND VOMITI NG Pantoprazole Sodiu m 40 mg 03/17/23 00:42 03/17/23 13:19 Pantoprazole 40 Mg Sdv IVP 40 mg Q12H KELSEY Administration Vitals/I&O/Wt Last Vital Signs Temp 99.2 F 03/17/23 00:40 Pulse 106 H 03/17/23 14:39 Resp 20 H 03/17/23 14:39 BP 86/47 03/17/23 13:55 Pulse Ox 94 03/17/23 14:39 O2 Del Method Nasal Cannula 03/17/23 14:39 O2 Flow Rate 4 03/17/23 14:39 FiO2 40 03/16/23 20:56 03/16/23 03/17/23 03/17/23 22:59 06:59 14:59 Intake Total 1190.082 / 4127.009 0656.291 / 5248.373 889.153 / 889.153 Output Total 250 / 250 Balance 1190.082 / 7671.188 6899.291 / 4998.373 889.153 / 889.153 Weight last 48 hrs Weight 124.5 kg Weight 119.748 kg Physical Exam Const: COMMON NORMALS: patient oriented x3 HENMT: COMMON NORMALS: normocephalic and atraumatic HEAD & SCALP: normocephalic and atraumatic Resp: COMMON NORMALS: clear to auscultation bilaterally AUSCULTATION: clear to auscultation bilaterally Cardio: COMMON NORMALS: regular rate, regular rhythm, S1 normal heart sound present, S2 normal heart sound present, No gallops present (Cardio), No murmurs present (Cardio), No rub (Cardio) and Peripheral pulses 2+ throughout RATE: regular rate RHYTHM: regular rhythm HEART SOUNDS: S1 normal heart sound present and S2 normal heart sound present PERIPHERAL PULSES: Peripheral pulses 2+ throughout GI: COMMON NORMALS: No hepatosplenomegaly present and no masses AUSCULTATION: Yes normoactive bowel sounds PALPATION: Yes No hepatosplenome celso present RECTAL EXAM: deferred OTHER: Epigastric tenderness present , no rebound tenderness no rigidity, no guarding, Osborn sign is negative. Extremity: COMMON NORMALS: no clubbing, cyanosis or edema and no pedal edema Neuro: COMMON NORMALS: patient oriented x3 Urinary Catheter Management: Vaughan: Cath Placed During This Visit: yes Reason for Continuing Indwelling Catheter: Accurate Measurement of Urinary Output in Critically Ill Patients Urinary Catheter Date of Insertion: 03/16/23 Urinary Catheter Time of Insertion: 21:15 Data 03/17/23 01:36 03/17/23 01:36 Micro: Microbiology 03/16/23 20:40 Blood Culture - Preliminary Blood SPECIMEN COLLECTED 03/16/23 19:40 Blood Culture - Preliminary Blood SPECIMEN COLLECTED A&P Assessment and plan (1) Septic shock: Patient has evidence of septic shock. She has received multiple fluid boluses, and not responded adequately. She has been started on norepinephrine and this has been titrated up. Continue broad-spectrum antibiotics of vancomycin and Zosyn Urine and blood cultures been obtained. I have asked the urinalysis to be repeated secondary to squamous cells and Lactate was performed, and repeated and although decreasing still high If blood pressure does not respond consider adding vasopressin I have asked the emergency department to place a central line secondary to need for blood draws frequently as well as multiple medicine as needed to be administered centrally Etiology of sepsis is not known. It is possible she could have a UTI. CT abdomen pelvis did not demonstrate obvious etiology. We will be performing a gallbladder ultrasound as well considering her transaminitis As there is question of a bibasilar infiltrate a COVID PCR is ordered I will visit with the family and determine if she has been on any steroids recently other than inhaled. From this, hydrocortisone dosing might be continued. Stat echo has been ordered Check MRSA PCR (2) Acute kidney injury: Significant acute kidney injury is noted No obstruction noted on CT Check CK Continue fluids Repeat BMP daily (3) Abdominal pain: She has some abdominal pain, and has had vomiting. Continue Protonix twice daily Transaminitis is associated with her abdominal pain. Check gallbladder ultrasound. CT scan did not demonstrate etiology. It is possible her tr ansaminitis may all be from sepsis. Repeat LFTs tomorrow. NPO. Hepatitis panel is negative. (4) COPD (chronic obstructive pulmonary disease): Budesonide twice daily DuoNeb every 6 hours (5) Elevated troponin: Consistent with type II elevation myocardial infarction Consider further risk stratification as patient improves At this point convert to heparin drip in the interim as her Xarelto will be held in case further procedures are needed in the hospital and she has renal dysfunction. Plan History of atrial fibrillation. Continue anticoagulation. Hold diltiazem secondary to hypotension Other medical problems as outlined in past medical history Full code Heparin will suffice for DVT prophylaxis Attestations Medical Necessity Statement*: Needs to be in hospital management of septic shock. Coding Level [facility] Diagn[facility] Septic shock A41.9; R65.21 Acute kidney injury N17.9 Abdominal pain R10.9 COPD (chronic obstructive pulmonary disease) J44.9 Elevated troponin R77.8
[2023-03-17 15:39] LABS: Partial Thromboplastin Time 190.6 SECONDS (23.9-36.7)
[2023-03-17] MEDS: HYDROcodone-acetaminophen 7.5-325 mg Tablet 1 TAB PO (17:04)
--- NOTE | 2023-03-17 18:26 | PC.NURSE ---
PTT came back critical at around 1600. Notified Dr. Paez, held heparin gtt for 2 hours and restarted gtt at 1615 per protocol. Next PTT due at 0015.
[2023-03-17] MEDS: norepinephrine 8 MG in dextrose 5 % 500 ML 45.72 MG IV ×2 (19:45→23:51)
[2023-03-17] MEDS: sodium chloride 0.9% 1,000 ML 75 ML IV (19:55)
--- NOTE | 2023-03-17 20:24 | ECG_ITS ---
[facility] Test Date: 2023-03-17 Pat Name: Arielle Cooper Department: Room: ICU03 Gender: Female Dyed Yarn Operator: : [id number] Requested By: Los Mckeon Order Number: [id number] Rocky MD: Belen William M.D. Measurements Intervals [place] Rate: 133 P: 0 KS: 0 QRS: -43 QRSD: 97 T: 78 QT: 301 QTc: 448 Interpretive Statements ATRIAL FIBRILLATION WITH RAPID VENTRICULAR RESPONSE WITH ABERRANT CONDUCTION OR VENTRICULAR PREMATURE COMPLEXES LEFT AXIS DEVIATION [QRS AXIS < -30] POSSIBLE ANTERIOR MYOCARDIAL INFARCTION , PROBABLY OLD [30 ms Q WAVE IN V3/V4, OR R < 0.2 mV IN V4] Compared to ECG 03/17/2023 00:59:19 Ventricular premature complex(es) now present Aberrant conduction of supraventricular beat(s) now present Left-axis deviation now present Myocardial infarct finding now present Sinus tachycardia no longer present Left anterior fascicular block no longer present Electronically Signed On 03-17-2023 22:41:36 CDT by Belen William M.D. [id number]
[2023-03-17] MEDS: amiodarone 50 mg/mL SDV 3 mL 150 MG IVP (20:47)
[2023-03-17 22:00] LABS: Magnesium 1.9 mg/dL (1.7-2.3); Potassium 3.8 mmol/L (3.5-5.1)
[2023-03-17 22:35] LABS: Adenovirus Not Detected (NOT DETECT); Chlamydia Pneumoniae Not Detected (NOT DETECT); Coronavirus 229E,HKU1,NL63,OC4 Not Detected (NOT DETECT); Human Metapneumovirus Not Detected (NOT DETECT); Human Rhinovirus/Enterovirus Not Detected (NOT DETECT); Influenza A Not Detected (NOT DETECT); Influenza A H1 Not Detected (NOT DETECT); Influenza A H1-2009 Not Detected (NOT DETECT); Influenza A H3 Not Detected (NOT DETECT); Influenza B Not Detected (NOT DETECT); Mycoplasma Pneumoniae Not Detected (NOT DETECT); Parainfluenza Virus Type 1 Not Detected (NOT DETECT); Parainfluenza Virus Type 2 Not Detected (NOT DETECT); Parainfluenza Virus Type 3 Not Detected (NOT DETECT); Parainfluenza Virus Type 4 Not Detected (NOT DETECT); Respiratory Syncytial Virus A Not Detected (NOT DETECT); Respiratory Syncytial Virus B Not Detected (NOT DETECT); SARS-COV-2 Not Detected (NOT DETECT)
[2023-03-18] VITALS (244 sets, daily range): BP systolic 75–129; BP diastolic 41–79; PULSE 80–137; RESP 10–30; TEMP 36.8; O2SAT 48–99
[2023-03-18] MEDS: ipratropium-albuterol 3 mL Neb INHALATION ×4 (01:04→20:00)
[2023-03-18 01:20] LABS: Partial Thromboplastin Time 146.6 SECONDS (23.9-36.7)
[2023-03-18 01:20] LABS: Acinetobacter baumannii Not Detected (NOT DETECT); Bacteroides fragilis Not Detected (NOT DETECT); CTX-M Not Detected (NOT DETECT); Citrobacter Not Detected (NOT DETECT); Cronobacter sakazakii Not Detected (NOT DETECT); Enterobacter cloacae complex Not Detected (NOT DETECT); Enterobacter non cloacae Not Detected (NOT DETECT); Fusobacterium necrophorum Not Detected (NOT DETECT); Fusobacterium nucleatum Not Detected (NOT DETECT); Haemophilus influenzae Not Detected (NOT DETECT); IMP Resistance Gene Not Detected (NOT DETECT); KPC Resistance Gene Not Detected (NOT DETECT); Klebsiella pneumoniae group Not Detected (NOT DETECT); Morganella morganii Not Detected (NOT DETECT); NDM Resistance Gene Not Detected (NOT DETECT); Neisseria meningitidis Not Detected (NOT DETECT); OXA Resistance Gene Not Detected (NOT DETECT); Pan Candida Not Detected (NOT DETECT); Pan Gram-Positive Not Detected (NOT DETECT); Proteus mirabilis Not Detected (NOT DETECT); Pseudomonas aeruginosa Not Detected (NOT DETECT); Salmonella Not Detected (NOT DETECT); Serratia Not Detected (NOT DETECT); Serratia marcescens Not Detected (NOT DETECT); Stenotrophomonas maltophilia Not Detected (NOT DETECT); VIM Resistance Gene Not Detected (NOT DETECT)
[2023-03-18] MEDS: piperacillin-tazobactam 3.375 GM in sodium chloride 0.9% (plus) 50 ML IV ×3 (01:47→17:14)
[2023-03-18] MEDS: ondansetron 2 mg/ML SDV 2 mL 4 MG IVP ×4 (05:18→23:54)
[2023-03-18 05:39] LABS: Creatine Phosphokinase 427 U/L (26-192)
[2023-03-18 06:52] LABS: Alanine Aminotransferase 654 U/L (0-33); Albumin Level 2.8 g/dL (3.5-5.2); Alkaline Phosphatase 196 U/L (35-105); Aspartate Amino Transferase 240 U/L (0-32); Blood Urea Nitrogen 37 mg/dL (8-23); Calcium 7.4 mg/dL (8.5-10.5); Carbon Dioxide 18 mmol/L (22-29); Chloride 103 mmol/L (98-107); Globulin 1.8 g/dL (1.3-4.6); Glucose 117 mg/dL (65-115); Osmolality Calculated 294 mOsm/kg (285-295); Sodium 137 mmol/L (136-145); Total Bilirubin 0.6 mg/dL (0.15-1.2); Total Protein 4.6 g/dL (6.6-8.7)
[2023-03-18 06:53] LABS: Creatinine Clr Calc Pharmacy 32.0497
[2023-03-18 07:51] LABS: Basophils # 0.1 10^3/uL (0.0-0.1); Basophils % 0.6 %; Eosinophils % 0.2 %; Hematocrit 36.2 % (37.0-47.0); Hemoglobin 11.5 g/dL (11.5-15.3); Lymphocytes # 0.6 10^3/uL (0.8-4.8); Lymphocytes % 2.7 %; Mean Corpuscular HGB Conc 31.8 g/dL (30.0-36.0); Mean Corpuscular Hemoglobin 27.8 pg (28.0-34.0); Mean Corpuscular Volume 87.7 fl (81-99); Mean Platelet Volume 9.8 fL (7.4-10.4); Monocytes # 0.8 10^3/uL (0.2-0.9); Monocytes % 3.9 %; Neutrophils # 17.54 10^3/uL (1.8-7.7); Neutrophils % 84.7 %; Nucleated Red Blood Cells % 0 %; Platelet Count 151 10^3/cmm (130-400); Red Blood Count 4.13 10^6/uL (4.1-5.3); Red Cell Distribution Width 14.6 % (12.1-15.1); White Blood Count 20.7 10^3/uL (4.0-10.0)
[2023-03-18] MEDS: budesonide 0.5 mg/2 mL Neb INHALATION ×2 (07:58→20:00)
[2023-03-18 08:08] LABS: Partial Thromboplastin Time 80.1 SECONDS (23.9-36.7)
[2023-03-18 08:11] LABS: Slide Review Slide Review Perform
[2023-03-18] MEDS: vancomycin 1,000 MG in sodium chloride 0.9% 250 ML 250 MG IV (09:09)
[2023-03-18] MEDS: pantoprazole 40 mg SDV IVP ×2 (11:55→23:55)
[2023-03-18] MEDS: HYDROmorphone 1 mg/mL INJ 1 mL IVP ×3 (11:56→23:54)
[2023-03-18] MEDS: norepinephrine 8 MG in dextrose 5 % 500 ML 45.72 MG IV (11:57)
[2023-03-18] MEDS: heparin drip 25,000 UNIT/500 ML PREMIX 24.4 UNIT IV (11:57)
--- NOTE | 2023-03-18 13:35 | PM.PN ---
Subjective Subjective: Patient seen and examined. Still having nausea and vomiting and on high-dose pressors. Still having epigastric abdominal pain but it is controlled. Vitals/I&O/Wt Last Vital Signs Temp 98.3 F 03/23/23 11:15 Pulse 71 03/23/23 13:18 Resp 18 03/23/23 13:18 BP 107/74 03/23/23 11:15 Pulse Ox 98 03/23/23 13:18 O2 Del Method Nasal Cannula 03/23/23 13:18 O2 Flow Rate 4 03/23/23 13:18 FiO2 35 03/21/23 18:00 03/22/23 03/23/23 03/23/23 22:59 06:59 14:59 Intake Total 240 / 890 530 / 530 Output Total 2300 / 2300 550 / 2850 Balance -2060 / -1410 -550 / -1960 530 / 530 Weight last 48 hrs Weight 288 lb Weight 276 lb Physical Exam Narrative: General: No acute distress, somnolent but oriented x3 Abdomen: Soft, nondistended, mild tenderness to palpation diffusely, no guarding rebound or masses Urinary Catheter Management: Vaughan: Cath Placed During This Visit: yes Reason for Continuing Indwelling Catheter: Acute Urinary Retention or Obstruction Urinary Catheter Date of Insertion: 03/16/23 Urinary Catheter Time of Insertion: 21:15 Data 03/23/23 05:00 03/23/23 05:00 Micro: Microbiology 03/18/23 12:47 Blood Culture - Final Blood NO GROWTH AFTER 5 DAYS 03/18/23 07:30 Blood Culture - Final Blood NO GROWTH AFTER 5 DAYS A&P Assessment and plan (1) Cholelithiasis: (2) Abdominal pain: (3) Acute kidney injury: Plan Await blood blood cultures This could possibly be acute calculus cholecystitis versus pyelonephritis. Patient is quite ill and will hold off on surgery for now and treat with antibiotics. We will follow Medical management per hospitalist Attestations Medical Necessity Statement*: Per primary Coding Level of Care Code 42767 Diagnoses Cholelithiasis K80.20 Abdominal pain R10.9 Acute kidney injury N17.9
[2023-03-18 15:47] LABS: Partial Thromboplastin Time 47.2 SECONDS (23.9-36.7)
--- NOTE | 2023-03-18 18:11 | P.PN_ITS ---
Subjective Subjective: Patient was seen and examined this morning, afebrile overnight.Currently still requiring high dose of Levophed. Underwent A-fib with RVR overnight. Had to be started on amiodarone drip. Renal ultrasound is limited by image quality but has not shown any significant hydronephrosis, Blood culture is positive for:1/3 bottles GNR.White blood cell count has not significantly trended down Serum creatinine appears to be stable at 2.1, patient is making good urine, IV fluids were stopped last night As the patient was sounding wet, transaminitis is improving, hepatitis panel is negative. Respiratory viral panel negative. Medications: Medication Review Details: Generic Name Dose Route Start Last Admin Trade Name Freq PRN Reason Stop Dose Admin Hydrocodone Bitart /Acetaminophen 1 tab 03/17/23 10:31 03/17/23 17:04 Hydrocodone-Acet aminophen 7.5-325 Mg Tablet PO 1 tab QID PRN Administration Pain Albuterol/Ipratrop ium 3 ml 03/17/23 02:00 03/18/23 13:31 Ipratropium-Albu terol 3 Ml Neb INHALATION 3 ml Q6H.RESP KELSEY Administration Budesonide 0.5 mg 03/17/23 08:00 03/18/23 07:58 Budesonide 0.5 M g/2 Ml Neb INHALATION 0.5 mg BID.RESPIRATORY S CH Administration Fluoxetine HCl 20 mg 03/17/23 09:00 03/18/23 11:43 Fluoxetine 20 Mg Capsule PO Not Given DAILY KELSEY Hydromorphone HCl 1 mg 03/18/23 11:44 03/18/23 11:56 Hydromorphone 1 Mg/Ml Inj 1 Ml IVP 1 mg Q3H PRN Administration PAIN Norepinephrine Bit artrate 4 mg 254 mls @ 0 mls/h r 03/16/23 20:00 03/17/23 01:37 / Dextrose IV Infused .Q0M KELSEY Titration Protocol Per Protocol Heparin Sodium/Sod ium Chloride 25,000 unit in 50 0 mls @ 0 mls/hr 03/17/23 00:42 03/18/23 16:37 Heparin Drip IV 11.02 unit/kg/hr .Q0M KELSEY 26.4 mls/hr Titration Protocol Per Protocol Vasopressin 40 uni t/ Sodium 40 mls @ 0.03 mls /min 03/17/23 01:00 03/18/23 01:45 Chloride IV Not Given CONT KELSEY Piperacillin Sod/T azobactam 50 mls @ 12.5 mls /hr 03/17/23 02:00 03/18/23 17:14 Sod 3.375 gm/ So dium Chloride IV 12.5 mls/hr Q8H KELSEY Administration Vancomycin HCl 1,0 00 mg/ 250 mls @ 250 mls /hr 03/18/23 09:00 03/18/23 10:17 Sodium Chloride IV Infused Q36H KELSEY Infusion Norepinephrine Bit artrate 8 mg 508 mls @ 0 mls/h r 03/17/23 01:45 03/18/23 11:57 / Dextrose IV 12 mcg/min .Q0M KELSEY 45.72 mls/hr Administration Protocol Per Protocol Amiodarone HCl 900 mg/ 518 mls @ 0 mls/h r 03/17/23 20:45 03/18/23 17:17 Dextrose/ IV Misce llaneous IV 0.5 mg/min Supplies .Q0M KELSEY 17.27 mls/hr Administration Protocol Per Protocol Ondansetron HCl 4 mg 03/17/23 17:45 03/18/23 17:16 Ondansetron 2 Mg /Ml Sdv 2 Ml IVP 4 mg Q6H KELSEY Administration Pantoprazole Sodiu m 40 mg 03/17/23 00:42 03/18/23 11:55 Pantoprazole 40 Mg Sdv IVP 40 mg Q12H KELSEY Administration Vitals/I&O/Wt Last Vital Signs Temp 99.2 F 03/17/23 00:40 Pulse 100 03/18/23 18:00 Resp 19 H 03/18/23 18:00 BP 95/67 03/18/23 18:00 Pulse Ox 94 03/18/23 17:55 O2 Del Method Nasal Cannula 03/18/23 13:37 O2 Flow Rate 4 03/18/23 13:37 FiO2 40 03/18/23 08:07 03/18/23 03/18/23 03/18/23 06:59 14:59 22:59 Intake Total 893.909 / 3488.336 1078.88 / 1078.88 343.270 / 1422.150 Output Total 550 / 1675 900 / 900 Balance 343.909 / 1010.705 7451.88 / 1078.88 -556.730 / 522.150 Weight last 48 hrs Weight 127 kg Weight 124.5 kg Weight 119.748 kg Physical Exam Const: COMMON NORMALS: patient oriented x3 HENMT: COMMON NORMALS: normocephalic and atraumatic HEAD & SCALP: normocephalic and atraumatic Resp: COMMON NORMALS: clear to auscultation bilaterally AUSCULTATION: clear to auscultation bilaterally Cardio: COMMON NORMALS: regular rate, regular rhythm, S1 normal heart sound present, S2 normal heart sound present, No gallops present (Cardio), No murmurs present (Cardio), No rub (Cardio) and Peripheral pulses 2+ throughout RATE: regular rate RHYTHM: regular rhythm HEART SOUNDS: S1 normal heart sound present and S2 normal heart sound present PERIPHERAL PULSES: Peripheral pulses 2+ throughout GI: COMMON NORMALS: No hepatosplenomegaly present and no masses AUSCULTATION: Yes normoactive bowel sounds PALPATION: Yes No hepatosplenomegaly present RECTAL EXAM: deferred OTHER: Right upper quadrant as well as epigastric tenderness present. Extremity: COMMON NORMALS: no clubbing, cyanosis or edema and no pedal edema Neuro: COMMON NORMALS: patient oriented x3 Urinary Catheter Management: Vaughan: Cath Placed During This Visit: yes Reason for Continuing Indwelling Catheter: Accurate Measurement of Urinary Output in Critically Ill Patients Urinary Catheter Date of Insertion: 03/16/23 Urinary Catheter Time of Insertion: 21:15 Data 03/18/23 07:30 03/18/23 04:10 Micro: Microbiology 03/18/23 12:47 Blood Culture - Preliminary Blood SPECIMEN COLLECTED 03/16/23 22:55 Urine Culture - Preliminary Urine Catheterized 03/18/23 07:30 Blood Culture - Preliminary Blood SPECIMEN COLLECTED 03/16/23 19:40 Blood Culture - Preliminary Blood 03/16/23 20:40 Blood Culture - Preliminary Blood NEGATIVE TO DATE A&P Assessment and plan (1) Septic shock: Patient has evidence of septic shock. She has received multiple fluid boluses, and not responded adequately. She has been started on norepinephrine and this has been titrated up. Continue broad-spectrum antibiotics of vancomycin and Zosyn Urine and blood cultures been obtained. I have asked the urinalysis to be repeated secondary to squamous cells and Lactate was performed, and repeated and although decreasing still high If blood pressure does not respond consider adding vasopressin I have asked the emergency department to place a central line secondary to need for blood draws frequently as well as multiple medicine as needed to be administered centrally Etiology of sepsis is not known. It is possible she could have a UTI. CT a bdomen pelvis did not demonstrate obvious etiology. We will be performing a gallbladder ultrasound as well considering her transaminitis As there is question of a bibasilar infiltrate a COVID PCR is ordered I will visit with the family and determine if she has been on any steroids recently other than inhaled. From this, hydrocortisone dosing might be continued. Stat echo has been ordered Check MRSA PCR (2) Acute kidney injury: Significant acute kidney injury is noted No obstruction noted on CT Check CK Continue fluids Repeat BMP daily (3) Abdominal pain: She has some abdominal pain, and has had vomiting. Continue Protonix twice daily Transaminitis is associated with her abdominal pain. Check gallbladder ultrasound. CT scan did not demonstrate etiology. It is possible her transaminitis may all be from sepsis. Repeat LFTs tomorrow. NPO. Hepatitis panel is negative. (4) COPD (chronic obstructive pulmonary disease): Budesonide twice daily DuoNeb every 6 hours (5) Elevated troponin: Consistent with type II elevation myocardial infarction Consider further risk stratification as patient improves At this point convert to heparin drip in the interim as her Xarelto will be held in case further procedures are needed in the hospital and she has renal dysfunction. Plan History of atrial fibrillation. Continue anticoagulation. Hold diltiazem secondary to hypotension Other medical problems as outlined in past medical history Full code Heparin will suffice for DVT prophylaxis Attestations Medical Necessity Statement*: In hospital for management of septic shock. Coding Level of Care Code Acute Code for [facility] Fwd Diagnoses Septic shock A41.9; R65.21 Acute kidney injury N17.9 Abdominal pain R10.9 COPD (chronic obstructive pulmonary disease) J44.9 Elevated troponin R77.8
[2023-03-18 23:22] LABS: Partial Thromboplastin Time 45.5 SECONDS (23.9-36.7)
[2023-03-19] VITALS (107 sets, daily range): BP systolic 72–127; BP diastolic 57–90; PULSE 89–129; RESP 10–36; TEMP 36.3; O2SAT 66–99
[2023-03-19] MEDS: norepinephrine 8 MG in dextrose 5 % 500 ML 45.72 MG IV ×2 (00:02→12:46)
[2023-03-19] MEDS: heparin 5,000 unit/mL INJ 1 mL IV ×2 (00:23→06:00)
[2023-03-19] MEDS: piperacillin-tazobactam 3.375 GM in sodium chloride 0.9% (plus) 50 ML IV ×3 (01:36→17:08)
[2023-03-19] MEDS: ipratropium-albuterol 3 mL Neb INHALATION ×2 (02:52→07:20)
[2023-03-19 02:55] LABS: Basophils # 0.1 10^3/uL (0.0-0.1); Basophils % 0.5 %; Eosinophils # 0.1 10^3/uL (0.0-0.8); Eosinophils % 0.5 %; Hematocrit 36.1 % (37.0-47.0); Hemoglobin 11.1 g/dL (11.5-15.3); Lymphocytes # 0.6 10^3/uL (0.8-4.8); Lymphocytes % 2.9 %; Mean Corpuscular HGB Conc 30.7 g/dL (30.0-36.0); Mean Corpuscular Hemoglobin 26.4 pg (28.0-34.0); Mean Platelet Volume 9.8 fL (7.4-10.4); Monocytes # 0.8 10^3/uL (0.2-0.9); Monocytes % 3.8 %; Neutrophils % 91.9 %; Nucleated Red Blood Cells % 0 %; Platelet Count 122 10^3/cmm (130-400); Red Cell Distribution Width 14.5 % (12.1-15.1); White Blood Count 19.9 10^3/uL (4.0-10.0)
[2023-03-19 03:12] LABS: Alanine Aminotransferase 436 U/L (0-33); Albumin Level 2.5 g/dL (3.5-5.2); Alkaline Phosphatase 220 U/L (35-105); Anion Gap 13.9 (5-19); Aspartate Amino Transferase 70 U/L (0-32); Blood Urea Nitrogen 35 mg/dL (8-23); Calcium 8.2 mg/dL (8.5-10.5); Carbon Dioxide 22 mmol/L (22-29); Chloride 103 mmol/L (98-107); Creatine Phosphokinase 113 U/L (26-192); Globulin 2.8 g/dL (1.3-4.6); Glucose 144 mg/dL (65-115); Osmolality Calculated 291 mOsm/kg (285-295); Potassium 3.9 mmol/L (3.5-5.1); Sodium 135 mmol/L (136-145); Total Bilirubin 0.5 mg/dL (0.15-1.2); Total Protein 5.3 g/dL (6.6-8.7)
[2023-03-19 03:29] LABS: Procalcitonin 73.88 ng/mL (0-0.5)
[2023-03-19 05:23] LABS: Partial Thromboplastin Time 53.4 SECONDS (23.9-36.7)
[2023-03-19] MEDS: blistex lip oint 7 gm Tube 1 APPLIC TOPICAL (05:50)
[2023-03-19] MEDS: ondansetron 2 mg/ML SDV 2 mL 4 MG IVP ×3 (05:57→16:52)
[2023-03-19] MEDS: HYDROmorphone 1 mg/mL INJ 1 mL IVP ×3 (05:58→20:30)
[2023-03-19] MEDS: budesonide 0.5 mg/2 mL Neb INHALATION ×2 (07:20→19:56)
[2023-03-19] MEDS: heparin drip 25,000 UNIT/500 ML PREMIX 31.13 UNIT IV (07:28)
[2023-03-19] MEDS: fluoxetine 20 mg Capsule PO (08:52)
--- NOTE | 2023-03-19 09:28 | XRR_ITS ---
PROCEDURE INFORMATION: Exam: XR Chest Exam date and time: 03/19/2023 9:49 AM Age: 73 years old Clinical indication: Other: Aspiration TECHNIQUE: Imaging protocol: Radiologic exam of the chest. Views: 1 view. COMPARISON: CR (CHEST, ) 03/17/2023 12:07 AM FINDINGS: Tubes, catheters and devices: Right-sided central venous line noted with the distal tip in the region of the mid/lower SVC. Lungs: Low lung volumes. Possible retrocardiac left basilar consolidation. Pleural spaces: No pneumothorax. No pleural effusion. Heart/Mediastinum: The heart is enlarged for size, possibly exaggerated by low lung volumes. Bones/joints: Unremarkable. XR/XR chest 1V portable [id number] IMPRESSION: Possible retrocardiac left basilar consolidation.
--- NOTE | 2023-03-19 09:29 | PC.SOCIAL ---
Imm update Imm updated with patient at bedside. She is able to state name and date of . Copy of page 2 provided. Patient verbalized understanding. Copy in chart initialed, dated and timed.
[2023-03-19] MEDS: levalbuterol 1.25 mg/3 mL Neb INHALATION ×2 (11:48→19:56)
[2023-03-19] MEDS: ipratropium 0.5 mg/2.5 mL Neb INHALATION ×4 (11:48→23:11)
[2023-03-19] MEDS: pantoprazole 40 mg SDV IVP (12:43)
--- NOTE | 2023-03-19 13:20 | CTR_ITS ---
PROCEDURE INFORMATION: Exam: CT Head Without Contrast Exam date and time: 03/19/2023 1:42 PM Age: 73 years old Clinical indication: Stroke-like symptoms; Altered mental status/memory loss; Additional info: Left pupil dilated, AMS TECHNIQUE: Imaging protocol: Computed tomography of the head without contrast. Radiation optimization: All CT scans at this facility use at least one of these dose optimization techniques: automated exposure control; mA and/or kV adjustment per patient size (includes targeted exams where dose is matched to clinical indication); or iterative reconstruction. Other technique: STROKE PROTOCOL was implemented. REPORTING DATA: Count of CT and Cardiac NM exams in prior 12 months: This patient has received 2 known CTs and 0 known cardiac nuclear medicine studies in the 12 months prior to the current study. COMPARISON: No relevant prior studies available. RADIATION DOSE METRICS: Total DLP (mGy-cm): 1083.38 FINDINGS: Brain: No acute intracranial hemorrhage. No mass effect. Ill-defined hypodensity in the left ventral triston (series 14 image 19) and to the right of the midline in the midbrain (series 14, image 23) are indeterminate. Cerebral ventricles: No ventriculomegaly. Paranasal sinuses: Visualized sinuses are unremarkable. No fluid levels. Mastoid air cells: No mastoid effusion. Bones/joints: No acute fracture. No suspicious lytic or sclerotic bone lesions. Soft tissues: Unremarkable. CT/CT head wo con* [id number] IMPRESSION: No CT evidence of acute intracranial hemorrhage, mass or acute infarction in the large vascular territory in the supratentorial brain. Small hypodensities in the brainstem (left ventral triston and to the right of the midline in the midbrain) are indeterminate. Acute infarctions are not excluded. ASSESSMENT: ASPECTS ([place] Stroke Program Early CT Score) is 10.
--- NOTE | 2023-03-19 13:39 | PM.PN ---
Subjective Subjective: Patient seen and examined. Still having nausea and vomiting and on high-dose pressors. Labs are improving. Still having epigastric abdominal pain but it is controlled. Vitals/I&O/Wt Last Vital Signs Temp 98.3 F 03/23/23 11:15 Pulse 71 03/23/23 13:18 Resp 18 03/23/23 13:18 BP 107/74 03/23/23 11:15 Pulse Ox 98 03/23/23 13:18 O2 Del Method Nasal Cannula 03/23/23 13:18 O2 Flow Rate 4 03/23/23 13:18 FiO2 35 03/21/23 18:00 03/22/23 03/23/23 03/23/23 22:59 06:59 14:59 Intake Total 240 / 890 530 / 530 Output Total 2300 / 2300 550 / 2850 Balance -2060 / -1410 -550 / -1960 530 / 530 Weight last 48 hrs Weight 288 lb Weight 276 lb Physical Exam Narrative: General: No acute distress, somnolent but oriented x3 Abdomen: Soft, nondistended, mild tenderness to palpation diffusely, no guarding rebound or masses Urinary Catheter Management: Vaughan: Cath Placed During This Visit: yes Reason for Continuing Indwelling Catheter: Acute Urinary Retention or Obstruction Urinary Catheter Date of Insertion: 03/16/23 Urinary Catheter Time of Insertion: 21:15 Data 03/23/23 05:00 03/23/23 05:00 Micro: Microbiology 03/18/23 12:47 Blood Culture - Final Blood NO GROWTH AFTER 5 DAYS 03/18/23 07:30 Blood Culture - Final Blood NO GROWTH AFTER 5 DAYS A&P Assessment and plan (1) Cholelithiasis: (2) Abdominal pain: (3) Acute kidney injury: Plan Await blood blood cultures This could possibly be acute calculus cholecystitis versus pyelonephritis. Patient is quite ill and will hold off on surgery for now and treat with antibiotics. N.p.o. after midnight. If patient is still requiring high-dose pressors and labs are not significantly improved tomorrow, I will have a discussion with her about cholecystectomy. Medical management per hospitalist Attestations Medical Necessity Statement*: Per primary Coding Level of Care Code 27252 Diagnoses Cholelithiasis K80.20 Abdominal pain R10.9 Acute kidney injury N17.9
[2023-03-19 14:32] LABS: Partial Thromboplastin Time 37.3 SECONDS (23.9-36.7)
--- NOTE | 2023-03-19 17:43 | P.PN_ITS ---
Subjective Subjective: Patient was seen and examined this morning, continues to be on high-dose Levophed, persistent white count In A-fib with RVR on amiodarone drip, patient also had anisocoria T pupil is around 5mm and less reactive.C.T without contrast done today showed: Small hypodensities in the brainstem (left ventral triston and to the right of the midline in the midbrain) are indeterminate. Acute infarctions are not excluded.For now we will hold on heparin drip. Plan was to do MRI head without contrast: To further evaluate the CT findings: Unfortunately MRI is not available over the weekend. She has been afebrile , blood culture is growing E. coli, pansensitive /: Bottles. MRSA PCR is negative. X-ray chest done this morning has shown: Possible retrocardiac left basilar consolidation. Doing well on BiPAP as well as 4-5 Ls supplemental oxygen through nasal cannula. Medications: Medication Review Details: 3Generic Name Dose Route Start Last Admin Trade Name Freq PRN Reason Stop Dose Admin Hydrocodone Bitart /Acetaminophen 1 tab 03/17/23 10:31 03/17/23 17:04 Hydrocodone-Acet aminophen 7.5-325 Mg Tablet PO 1 tab QID PRN Administration Pain Albuterol/Ipratrop ium 3 ml 03/17/23 02:00 03/18/23 13:31 Ipratropium-Albu terol 3 Ml Neb INHALATION 3 ml Q6H.RESP KELSEY Administration Budesonide 0.5 mg 03/17/23 08:00 03/18/23 07:58 Budesonide 0.5 M g/2 Ml Neb INHALATION 0.5 mg BID.RESPIRATORY S CH Administration Fluoxetine HCl 20 mg 03/17/23 09:00 03/18/23 11:43 Fluoxetine 20 Mg Capsule PO Not Given DAILY KELSEY Hydromorphone HCl 1 mg 03/18/23 11:44 03/18/23 11:56 Hydromorphone 1 Mg/Ml Inj 1 Ml IVP 1 mg Q3H PRN Administration PAIN Norepinephrine Bit artrate 4 mg 254 mls @ 0 mls/h r 03/16/23 20:00 03/17/23 01:37 / Dextrose IV Infused .Q0M KELSEY Titration Protocol Per Protocol Heparin Sodium/Sod ium Chloride 25,000 unit in 50 0 mls @ 0 mls/hr 03/17/23 00:42 03/18/23 16:37 Heparin Drip IV 11.02 unit/kg/hr .Q0M KELSEY 26.4 mls/hr Titration Protocol Per Protocol Vasopressin 40 uni t/ Sodium 40 mls @ 0.03 mls /min 03/17/23 01:00 03/18/23 01:45 Chloride IV Not Given CONT KELSEY Piperacillin Sod/T azobactam 50 mls @ 12.5 mls /hr 03/17/23 02:00 03/18/23 17:14 Sod 3.375 gm/ So dium Chloride IV 12.5 mls/hr Q8H KELSEY Administration Vancomycin HCl 1,0 00 mg/ 250 mls @ 250 mls /hr 03/18/23 09:00 03/18/23 10:17 Sodium Chloride IV Infused Q36H KELSEY Infusion Norepinephrine Bit artrate 8 mg 508 mls @ 0 mls/h r 03/17/23 01:45 03/18/23 11:57 / Dextrose IV 12 mcg/min .Q0M KELSEY 45.72 mls/hr Administration Protocol Per Protocol Amiodarone HCl 900 mg/ 518 mls @ 0 mls/h r 03/17/23 20:45 03/18/23 17:17 Dextrose/ IV Misce llaneous IV 0.5 mg/min Supplies .Q0M KELSEY 17.27 mls/hr Administration Protocol Per Protocol Ondansetron HCl 4 mg 03/17/23 17:45 03/18/23 17:16 Ondansetron 2 Mg /Ml Sdv 2 Ml IVP 4 mg Q6H KELSEY Administration Pantoprazole Sodiu m 40 mg 03/17/23 00:42 03/18/23 11:55 Pantoprazole 40 Mg Sdv IVP 40 mg Q12H KELSEY Administration Vitals/I&O/Wt Last Vital Signs Temp 98.3 F 03/18/23 20:00 Pulse 103 H 03/19/23 16:21 Resp 16 03/19/23 16:05 BP 112/77 03/19/23 16:00 Pulse Ox 98 03/19/23 16:05 O2 Del Method Nasal Cannula 03/19/23 16:05 O2 Flow Rate 4 03/19/23 16:05 FiO2 35 03/19/23 08:00 03/19/23 03/19/23 03/19/23 06:59 14:59 22:59 Intake Total 874.133 / 2346.283 843.358 / 843.358 Output Total 400 / 1625 1150 / 1150 Balance 474.133 / 721.283 843.358 / 843.358 -1150 / -306.642 Weight last 48 hrs Weight 127 kg Physical Exam Narrative: Asymmetric pupil lt > rt. Const: COMMON NORMALS: patient oriented x3 HENMT: COMMON NORMALS: normocephalic and atraumatic HEAD & SCALP: normoc ephalic and atraumatic Resp: COMMON NORMALS: clear to auscultation bilaterally AUSCULTATION: clear to auscultation bilaterally Cardio: COMMON NORMALS: regular rate, regular rhythm, S1 normal heart sound present, S2 normal heart sound present, No gallops present (Cardio), No murmurs present (Cardio), No rub (Cardio) and Peripheral pulses 2+ throughout RATE: regular rate RHYTHM: regular rhythm HEART SOUNDS: S1 normal heart sound present and S2 normal heart sound present PERIPHERAL PULSES: Peripheral pulses 2+ throughout GI: COMMON NORMALS: No hepatosplenomegaly present and no masses AUSCULTATION: Yes normoactive bowel sounds PALPATION: Yes No hepatosplenomegaly present RECTAL EXAM: deferred OTHER: Right upper quadrant as well as epigastric tenderness present. Extremity: COMMON NORMALS: no clubbing, cyanosis or edema and no pedal edema Neuro: COMMON NORMALS: patient oriented x3 Urinary Catheter Management: Vaughan: Cath Placed During This Visit: yes Reason for Continuing Indwelling Catheter: Accurate Measurement of Urinary Output in Critically Ill Patients Urinary Catheter Date of Insertion: 03/16/23 Urinary Catheter Time of Insertion: 21:15 Data 03/19/23 02:17 03/19/23 02:17 Micro: Microbiology 03/18/23 19:41 MRSA Culture - Final Nose 03/16/23 22:55 Urine Culture - Final Urine Catheterized 03/18/23 12:47 Blood Culture - Preliminary Blood NEGATIVE TO DATE 03/18/23 07:30 Blood Culture - Preliminary Blood NEGATIVE TO DATE A&P Assessment and plan (1) Septic shock: Patient has evidence of septic shock. She has received multiple fluid boluses, and not responded adequately. She has been started on norepinephrine and this has been titrated up. Continue broad-spectrum antibiotics of vancomycin and Zosyn Urine and blood cultures been obtained. I have asked the urinalysis to be repeated secondary to squamous cells and Lactate was performed, and repeated and although decreasing still high If blood pressure does not respond consider adding vasopressin I have asked the emergency department to place a central line secondary to need for blood draws frequently as well as multiple medicine as needed to be administered centrally Etiology of sepsis is not known. It is possible she could have a UTI. CT abdomen pelvis did not demonstrate obvious etiology. We will be performing a gallbladder ultrasound as well considering her transaminitis As there is question of a bibasilar infiltrate a COVID PCR is ordered I will visit with the family and determine if she has been on any steroids recently other than inhaled. From this, hydrocortisone dosing might be continu ed. Stat echo has been ordered Check MRSA PCR (2) Acute kidney injury: Significant acute kidney injury is noted No obstruction noted on CT Check CK Continue fluids Repeat BMP daily (3) Abdominal pain: She has some abdominal pain, and has had vomiting. Continue Protonix twice daily Transaminitis is associated with her abdominal pain. Check gallbladder ultrasound. CT scan did not demonstrate etiology. It is possible her transaminitis may all be from sepsis. Repeat LFTs tomorrow. NPO. Hepatitis panel is negative. (4) COPD (chronic obstructive pulmonary disease): Budesonide twice daily DuoNeb every 6 hours (5) Elevated troponin: Consistent with type II elevation myocardial infarction Consider further risk stratification as patient improves At this point convert to heparin drip in the interim as her Xarelto will be held in case further procedures are needed in the hospital and she has renal dysfunction. Plan History of atrial fibrillation. hold anticoagulation. Hold diltiazem secondary to hypotension Other medical problems as outlined in past medical history Full code Heparin will suffice for DVT prophylaxis Attestations Medical Necessity Statement*: Needs to be in hospital for management of septic shock. Coding [facility] Diagnoses Septic shock A41.9; R65.21 Acute kidney injury N17.9 Abdominal pain R10.9 COPD (chronic obstructive pulmonary disease) J44.9 Elevated troponin R77.8
--- NOTE | 2023-03-19 19:00 | PC.NURSE ---
Levophed Upon assessment of patient, levophed running at 2 mcg/min with an adequate blood pressure and titrated off. At this time, MAR displays levophed administering at 12 mcg/min; MAR updated to reflect paused drip.
[2023-03-19 19:54] LABS: Glucose Point of Care 113 mg/dL (70-110)
[2023-03-19] MEDS: vancomycin 1,000 MG in sodium chloride 0.9% 250 ML 250 MG IV (20:28)
[2023-03-20] VITALS (86 sets, daily range): BP systolic 89–133; BP diastolic 59–96; PULSE 87–144; RESP 14–31; TEMP 36.4–37.1; O2SAT 83–99; BMI 44.4
[2023-03-20] MEDS: ondansetron 2 mg/ML SDV 2 mL 4 MG IVP ×3 (00:06→11:42)
[2023-03-20] MEDS: pantoprazole 40 mg SDV IVP ×2 (00:06→13:37)
[2023-03-20] MEDS: piperacillin-tazobactam 3.375 GM in sodium chloride 0.9% (plus) 50 ML IV ×3 (01:37→17:33)
[2023-03-20 02:58] LABS: Basophils % 0.4 %; Eosinophils # 0.1 10^3/uL (0.0-0.8); Eosinophils % 1.3 %; Hematocrit 32.9 % (37.0-47.0); Hemoglobin 10.1 g/dL (11.5-15.3); Lymphocytes # 0.4 10^3/uL (0.8-4.8); Lymphocytes % 4.2 %; Mean Corpuscular HGB Conc 30.7 g/dL (30.0-36.0); Mean Corpuscular Hemoglobin 26.3 pg (28.0-34.0); Mean Corpuscular Volume 85.7 fl (81-99); Mean Platelet Volume 10.1 fL (7.4-10.4); Monocytes # 0.7 10^3/uL (0.2-0.9); Monocytes % 6.8 %; Neutrophils # 9.12 10^3/uL (1.8-7.7); Neutrophils % 86.9 %; Nucleated Red Blood Cells % 0.2 %; Platelet Count 99 10^3/cmm (130-400); Red Blood Count 3.84 10^6/uL (4.1-5.3); Red Cell Distribution Width 14.3 % (12.1-15.1); White Blood Count 10.5 10^3/uL (4.0-10.0)
[2023-03-20] MEDS: ipratropium 0.5 mg/2.5 mL Neb INHALATION ×6 (03:04→23:03)
[2023-03-20 03:17] LABS: Alanine Aminotransferase 264 U/L (0-33); Albumin Level 2.6 g/dL (3.5-5.2); Alkaline Phosphatase 160 U/L (35-105); Anion Gap 11.7 (5-19); Aspartate Amino Transferase 25 U/L (0-32); Blood Urea Nitrogen 31 mg/dL (8-23); Calcium 8.8 mg/dL (8.5-10.5); Carbon Dioxide 25 mmol/L (22-29); Chloride 107 mmol/L (98-107); Globulin 1.6 g/dL (1.3-4.6); Glucose 90 mg/dL (65-115); Osmolality Calculated 296 mOsm/kg (285-295); Potassium 3.7 mmol/L (3.5-5.1); Sodium 140 mmol/L (136-145); Total Bilirubin 0.6 mg/dL (0.15-1.2); Total Protein 4.2 g/dL (6.6-8.7)
[2023-03-20] MEDS: budesonide 0.5 mg/2 mL Neb INHALATION ×2 (08:09→19:30)
[2023-03-20] MEDS: levalbuterol 1.25 mg/3 mL Neb INHALATION ×2 (08:09→16:27)
--- NOTE | 2023-03-20 08:23 | PM.PN ---
Subjective Subjective: Patient was seen and examined this morning she is off vasopressors, pupils are equal and reactive, denied any significant nausea vomiting, states abdominal pain has improved, white blood cell count is trending down. LFT has markedly improved, procalcitonin is trending down,has been afebrile. Medications: Medication Review Details: Generic Name Dose Route Start Last Admin Trade Name Freq PRN Reason Stop Dose Admin Hydrocodone Bitart /Acetaminophen 1 tab 03/17/23 10:31 03/17/23 17:04 Hydrocodone-Acet aminophen 7.5-325 Mg Tablet PO 1 tab QID PRN Administration Pain Albuterol/Ipratrop ium 3 ml 03/17/23 02:00 03/18/23 13:31 Ipratropium-Albu terol 3 Ml Neb INHALATION 3 ml Q6H.RESP KELSEY Administration Budesonide 0.5 mg 03/17/23 08:00 03/18/23 07:58 Budesonide 0.5 M g/2 Ml Neb INHALATION 0.5 mg BID.RESPIRATORY S CH Administration Fluoxetine HCl 20 mg 03/17/23 09:00 03/18/23 11:43 Fluoxetine 20 Mg Capsule PO Not Given DAILY KELSEY Hydromorphone HCl 1 mg 03/18/23 11:44 03/18/23 11:56 Hydromorphone 1 Mg/Ml Inj 1 Ml IVP 1 mg Q3H PRN Administration PAIN Norepinephrine Bit artrate 4 mg 254 mls @ 0 mls/h r 03/16/23 20:00 03/17/23 01:37 / Dextrose IV Infused .Q0M KELSEY Titration Protocol Per Protocol Heparin Sodium/Sod ium Chloride 25,000 unit in 50 0 mls @ 0 mls/hr 03/17/23 00:42 03/18/23 16:37 Heparin Drip IV 11.02 unit/kg/hr .Q0M KELSEY 26.4 mls/hr Titration Protocol Per Protocol Vasopressin 40 uni t/ Sodium 40 mls @ 0.03 mls /min 03/17/23 01:00 03/18/23 01:45 Chloride IV Not Given CONT KELSEY Piperacillin Sod/T azobactam 50 mls @ 12.5 mls /hr 03/17/23 02:00 03/18/23 17:14 Sod 3.375 gm/ So dium Chloride IV 12.5 mls/hr Q8H KELSEY Administration Vancomycin HCl 1,0 00 mg/ 250 mls @ 250 mls /hr 03/18/23 09:00 03/18/23 10:17 Sodium Chloride IV Infused Q36H KELSEY Infusion Norepinephrine Bit artrate 8 mg 508 mls @ 0 mls/h r 03/17/23 01:45 03/18/23 11:57 / Dextrose IV 12 mcg/min .Q0M KELSEY 45.72 mls/hr Administration Protocol Per Protocol Amiodarone HCl 900 mg/ 518 mls @ 0 mls/h r 03/17/23 20:45 03/18/23 17:17 Dextrose/ IV Misce llaneous IV 0.5 mg/min Supplies .Q0M KELSEY 17.27 mls/hr Administration Protocol Per Protocol Ondansetron HCl 4 mg 03/17/23 17:45 03/18/23 17:16 Ondansetron 2 Mg /Ml Sdv 2 Ml IVP 4 mg Q6H KELSEY Administration Pantoprazole Sodiu m 40 mg 03/17/23 00:42 03/18/23 11:55 Pantoprazole 40 Mg Sdv IVP 40 mg Q12H KELSEY Administration Vitals/I&O/Wt Last Vital Signs Temp 97.6 F 03/20/23 04:00 Pulse 115 H 03/20/23 08:05 Resp 18 03/20/23 08:05 BP 107/68 03/20/23 06:00 Pulse Ox 97 03/20/23 08:05 O2 Del Method Nasal Cannula 03/20/23 08:05 O2 Flow Rate 4 03/20/23 08:05 FiO2 35 03/20/23 00:15 03/19/23 03/20/23 03/20/23 22:59 06:59 14:59 Intake Total 284.988 / 1128.346 868 / 1995.346 Output Total 1150 / 1150 825 / 1975 Balance -865.012 / -21.654 43 .346 Weight last 48 hrs Weight 124.732 kg Physical Exam HENMT: COMMON NORMALS: normocephalic and atraumatic HEAD & SCALP: normocephalic and atraumatic Resp: COMMON NORMALS: clear to auscultation bilaterally AUSCULTATION: clear to auscultation bilaterally OTHER: Diminished air entry bilaterally Cardio: COMMON NORMALS: regular rate, regular rhythm, S1 normal heart sound present, S2 normal heart sound present, No gallops present (Cardio), No murmurs present (Cardio), No rub (Cardio) and Peripheral pulses 2+ throughout RATE: regular rate RHYTHM: regular rhythm HEART SOUNDS: S1 normal heart sound present and S2 normal heart sound present PERIPHERAL PULSES: Peripheral pulses 2+ throughout GI: COMMON NORMALS: No hepatosplenomegaly present and no masses AUSCULTATION: Yes normoactive bowel sounds PALPATION: Yes No hepatosplenomegaly present RECTAL EXAM: deferred OTHER: Right upper quadrant as well as epigastric tenderness present. Extremity: COMMON NORMALS: no clubbing, cyanosis or edema and no pedal edema Urinary Catheter Management: Vaughan: Cath Placed During This Visit: yes Reason for Continuing Indwelling Catheter: Accurate Measurement of Urinary Output in Critically Ill Patients Urinary Catheter Date of Insertion: 03/16/23 Urinary Catheter Time of Insertion: 21:15 Data 03/20/23 02:19 03/20/23 02:19 Micro: Microbiology 03/16/23 20:40 Blood Culture - Preliminary Blood NEGATIVE TO DATE 03/16/23 19:40 Blood Culture - Preliminary Blood Escherichia coli 03/18/23 19:41 MRSA Culture - Final Nose 03/16/23 22:55 Urine Culture - Final Urine Catheterized 03/18/23 12:47 Blood Culture - Preliminary Blood NEGATIVE TO DATE 03/18/23 07:30 Blood Culture - Preliminary Blood NEGATIVE TO DATE A&P Assessment and plan (1) Septic shock: (2) Acute kidney injury: (3) Abdominal pain: (4) COPD (chronic obstructive pulmonary disease): (5) Elevated troponin: (6) Thrombocytopenia: Plan 73-year-old female with past medical history of atrial fibrillation on Xarelto, COPD diabetes gout, hypertension, sleep apnea, was brought in initially with chief complaint of confusion, respiratory distress, abdominal pain, on admission she was found to be in septic shock likely secondary to UTI as well as acute cholecystitis, on admission she received fluid resuscitation as per sepsis protocol, and had to be started on vasopressors , she was on Levophed as well as vasopressin , random cortisol was 37, she was started empirically on Vanco and Zosyn, vancomycin has been discontinued now, blood culture grew: 1 out of 3 bottles positive for E. coli, repeat blood culture is negative, MRSA PCR is negative, urine culture: Mixed urogenital octavio,CTA chest abdomen and pelvis on admission: Emphysematous changes. Bibasilar atelectasis versus infiltrate.Gallbladder and bile ducts: Unremarkable. No calcified stones. No ductal dilation.Mild perinephric edema bilaterally likely reflecting renal insufficiency, please correlate for pyelonephritis, ultrasound gallbladder: Abnormal gallbladder. There is diffuse gallbladder wall thickening with numerous stones. Small caliber lumen. Consider acute cholecystitis. No bile duct dilatation. Renal ultrasound: ?No obvious hydronephrosis. On admission she also found to be in severe transaminitis likely 2/2 shock liver , hepatitis panel was negative, currently LFT has significantly improved, T. bili was normal, she also came in with NEVIN on CKD: Likely secondary to septic shock admission serum creatinine was 2.1, currently serum creatinine has trended down to 1.5, on admission CK was also high which has trended down,during the hospital stay she was also managed for NSTEMI type II: Likely secondary to septic shock: Her troponin trend was: 183- 147-109, 2D echo showed: Normal left ventricular size, systolic function and wall ?thickness, with no regional wall motion abnormalities. Left ?ventricular ejection fraction is estimated at 60-65 %. Grade II ?diastolic dysfunction, moderately elevated filling pressures.Normal right ventricular size and possibly mildly decreased systolic function. Initially she was on heparin drip given that she also has history of A-fib and is on Xarelto at home, heparin drip was Later On hold as patient had developed left pupillary dilatation, on 03/19, CT head without contrast was done: Which was suggestive of possible acute infarction:it showed: Small hypodensities in the brainstem (left ventral triston and to the right of the midline in the midbrain) are indeterminate. Acute infarctions are not excluded. MRI brain without contrast is pending. Patient is currently also developing thrombocytopenia: Could be sepsis associated, follow DIC panel, 4 T score evaluated, continue to monitor platelet count. During the hospital stay patient also went into A-fib with RVR, for which she was started on amiodarone drip, currently, placed on p.o. amiodarone 400 twice daily, plan is to wean off the amiodarone drip, patient is on diltiazem and Xarelto at home, both are currently on hold for now.For her history of COPD she is on DuoNebs budesonide inhaler, Mucinex as well as Mucomyst. For likely acute cholecystitis, surgery was on board, she will need elective outpatient cholecystectomy in 6 weeks. Attestations Medical Necessity Statement*: Needs to be in hospital for management of septic shock. Coding Level of Care Code Acute Code for [facility] Fwd Diagnoses Septic shock A41.9; R65.21 Acute kidney injury N17.9 Abdominal pain R10.9 COPD (chronic obstructive pulmonary disease) J44.9 Elevated troponin R77.8 Thrombocytopenia D69.6
[2023-03-20] MEDS: fluoxetine 20 mg Capsule PO (10:00)
[2023-03-20] MEDS: guaiFENesin 600 mg Tablet PO ×2 (10:00→17:33)
[2023-03-20] MEDS: amiodarone 200 mg Tablet 400 MG PO ×2 (10:00→17:33)
--- NOTE | 2023-03-20 10:33 | P.PN_ITS ---
Subjective Subjective: Abdominal pain is significantly improved today. She is no longer on vasopressors. She failed a swallow eval yesterday. Vitals/I&O/Wt Last Vital Signs Temp 97.6 F 03/20/23 04:00 Pulse 119 H 03/20/23 10:00 Resp 23 H 03/20/23 10:00 BP 112/78 03/20/23 10:00 Pulse Ox 93 03/20/23 10:00 O2 Del Method Nasal Cannula 03/20/23 08:05 O2 Flow Rate 4 03/20/23 08:05 FiO2 35 03/20/23 10:00 03/19/23 03/20/23 03/20/23 22:59 06:59 14:59 Intake Total 284.988 / 1128.346 868 / 1996.346 0 / 0 Output Total 1150 / 1150 825 / 1975 Balance -865.012 / -21.654 43 / 21.346 0 / 0 Weight last 48 hrs Weight 274 lb 15.793 oz Physical Exam Narrative: General: No acute distress, somnolent but oriented x3 Abdomen: Soft, mild diffuse tenderness, nondistended, no guarding rebound or masses Urinary Catheter Management: Vaughan: Cath Placed During This Visit: yes Reason for Continuing Indwelling Catheter: Accurate Measurement of Urinary Output in Critically Ill Patients Urinary Catheter Date of Insertion: 03/16/23 Urinary Catheter Time of Insertion: 21:15 Data 03/20/23 02:19 03/20/23 02:19 Micro: Microbiology 03/16/23 20:40 Blood Culture - Preliminary Blood NEGATIVE TO DATE 03/16/23 19:40 Blood Culture - Preliminary Blood Escherichia coli 03/18/23 19:41 MRSA Culture - Final Nose 03/16/23 22:55 Urine Culture - Final Urine Catheterized 03/18/23 12:47 Blood Culture - Preliminary Blood NEGATIVE TO DATE 03/18/23 07:30 Blood Culture - Preliminary Blood NEGATIVE TO DATE A&P Assessment and plan (1) Cholelithiasis: (2) Abdominal pain: (3) Acute kidney injury: (4) Bacteremia: Plan It is possible that her original insult was acute calculous cholecystitis. Blo od cultures showed E. coli which is common in the gallbladder. She has shown great improvement last 24 hours with antibiotic and other medical therapy. We will continue with antibiotic treatment for possible acute cholecystitis but the objective of an interval cholecystectomy in 6 weeks. Surgically cleared for diet if she passes swallow eval Restart heparin Medical management per hospitalist Attestations Medical Necessity Statement*: Per primary Coding Level of Care Code 80791 Diagnoses Cholelithiasis K80.20 Abdominal pain R10.9 Acute kidney injury N17.9 Bacteremia R78.81
[2023-03-20] MEDS: acetylcysteine 200 mg/mL MDV 10 mL 100 MG INHALATION ×4 (11:22→23:03)
--- NOTE | 2023-03-20 11:27 | PC.NURSE ---
po amiodarone started and weaned off iv infusion productive cough white sputum
[2023-03-20 21:31] LABS: Glucose Point of Care 75 mg/dL (70-110)
[2023-03-20 21:31] LABS: Glucose Point of Care 79 mg/dL (70-110)
[2023-03-20 21:55] LABS: Glucose Point of Care 79 mg/dL (70-110)
--- NOTE | 2023-03-20 22:35 | PC.NURSE ---
Blood Sugar Patient's blood sugar 79; speech language pathology recommends dysphagia level 4 diet with mildly thick liquids. 4 oz mildly thick apple juice administered. Dr. Cantrell notified.
[2023-03-20 23:09] LABS: Glucose Point of Care 79 mg/dL (70-110)
[2023-03-21] VITALS (58 sets, daily range): BP systolic 86–127; BP diastolic 46–85; PULSE 94–139; RESP 14–33; TEMP 36.5–37.1; O2SAT 90–99
[2023-03-21] MEDS: pantoprazole 40 mg SDV IVP ×2 (00:09→13:20)
[2023-03-21 01:09] LABS: Glucose Point of Care 79 mg/dL (70-110)
[2023-03-21] MEDS: piperacillin-tazobactam 3.375 GM in sodium chloride 0.9% (plus) 50 ML IV ×2 (01:28→09:24)
--- NOTE | 2023-03-21 01:32 | W.PM.EVENTAC ---
Event Note Event Note: Has been cleared for diet initiation by surgery and speech recommendation was for dysphagia level 4 diet with mildly thickened liquids. I have placed orders for dysphagia diet with these parameters. Patient noted to have increasing heart rate at times. She was put on oral amiodarone. Review of home medicines shows that she was on Cardizem 180 mg daily. She had had softer blood pressures for a while but they have started to improve. We will put her on 30 mg p.o. every 6 hours immediate release Cardizem currently to see if she tolerates in terms of blood pressure and has improvement in heart rate control.
[2023-03-21] MEDS: dilTIAZem 30 mg Tablet PO ×4 (01:34→18:53)
--- NOTE | 2023-03-21 01:38 | PC.NURSE ---
HR Throughout the night, patient's HR mostly maintaining in the 120s with periodic increases into the 140s. Dr. Cantrell on unit and notified; order placed by Dr. Cantrell for 30 mg cardizem PO Q6H. See MAR for administration.
[2023-03-21 02:38] LABS: Glucose Point of Care 83 mg/dL (70-110)
[2023-03-21 02:38] LABS: Glucose Point of Care 120 mg/dL (70-110)
[2023-03-21 03:14] LABS: Basophils % 0.4 %; Eosinophils # 0.1 10^3/uL (0.0-0.8); Eosinophils % 1.5 %; Hematocrit 34.1 % (37.0-47.0); Hemoglobin 10.5 g/dL (11.5-15.3); Lymphocytes # 0.5 10^3/uL (0.8-4.8); Mean Corpuscular HGB Conc 30.8 g/dL (30.0-36.0); Mean Corpuscular Hemoglobin 26.2 pg (28.0-34.0); Mean Platelet Volume 10.5 fL (7.4-10.4); Monocytes # 0.9 10^3/uL (0.2-0.9); Monocytes % 11.6 %; Neutrophils # 6.22 10^3/uL (1.8-7.7); Neutrophils % 79.4 %; Nucleated Red Blood Cells % 0 %; Platelet Count 111 10^3/cmm (130-400); Red Blood Count 4.01 10^6/uL (4.1-5.3); Red Cell Distribution Width 14.6 % (12.1-15.1); White Blood Count 7.8 10^3/uL (4.0-10.0)
[2023-03-21] MEDS: acetylcysteine 200 mg/mL MDV 10 mL 100 MG INHALATION ×2 (03:15→07:33)
[2023-03-21] MEDS: ipratropium 0.5 mg/2.5 mL Neb INHALATION ×6 (03:16→23:21)
[2023-03-21 03:22] LABS: INR 1.07 (0.8-1.2); Partial Thromboplastin Time 27.5 SECONDS (23.9-36.7)
[2023-03-21 03:23] LABS: Fibrinogen 681 mg/dL (174-498)
[2023-03-21 03:30] LABS: Alanine Aminotransferase 165 U/L (0-33); Albumin Level 2.4 g/dL (3.5-5.2); Alkaline Phosphatase 161 U/L (35-105); Anion Gap 10.7 (5-19); Aspartate Amino Transferase 17 U/L (0-32); Blood Urea Nitrogen 28 mg/dL (8-23); Calcium 9.7 mg/dL (8.5-10.5); Carbon Dioxide 26 mmol/L (22-29); Chloride 108 mmol/L (98-107); Globulin 2.6 g/dL (1.3-4.6); Glucose 93 mg/dL (65-115); Osmolality Calculated 297 mOsm/kg (285-295); Potassium 3.7 mmol/L (3.5-5.1); Sodium 141 mmol/L (136-145); Total Bilirubin 0.4 mg/dL (0.15-1.2)
--- NOTE | 2023-03-21 07:00 | MR_ITS ---
WS: [id number] MRI BRAIN WITHOUT CONTRAST HISTORY: Stroke work up COMPARISON: CT head 03/19/2023 TECHNIQUE: Diffusion imaging, multiplanar T1, T2 and FLAIR imaging obtained. Examination is significantly compromised by motion artifact. Patient with altered mental status. Diffusion-weighted imaging is negative. Mild motion artifact. Significant motion artifact on several sequences. There is mild atrophy and mild small vessel ischemic disease. The extent of remote ischemic changes m ay be greater than visualize due to motion. No large areas of hemosiderin deposition. Ventricles and extra-axial spaces are normal. No inferior displacement of cerebellar tonsils. The sella turcica and pituitary gland are unremarkabl e. Dural venous sinuses and [place] demonstrate no abnormality on this unenhanced studies. Paranasal sinuses: Clear. Mastoid air cells: Small amount of fluid in the mastoid air cells. Calvarium and scalp: Intact. MR/MR head wo con* [id number] IMPRESSION: 1. Moderate motion artifact compromising MRI quality. 2. No obvious infarct or diffusion abnormality. 3. Mild atrophy and small vessel ischemic disease.
[2023-03-21] MEDS: levalbuterol 1.25 mg/3 mL Neb INHALATION ×3 (07:33→15:14)
[2023-03-21] MEDS: budesonide 0.5 mg/2 mL Neb INHALATION ×2 (07:34→19:49)
[2023-03-21] MEDS: fluoxetine 20 mg Capsule PO (08:56)
[2023-03-21] MEDS: amiodarone 200 mg Tablet 400 MG PO ×2 (08:56→18:53)
[2023-03-21] MEDS: guaiFENesin 600 mg Tablet PO ×2 (08:56→18:53)
--- NOTE | 2023-03-21 10:22 | P.PN_ITS ---
Subjective Subjective: Patient is afebrile, hemodynamically stable. Remains off pressors. Complains of abdominal pain, particularly in the epigastric region. No nausea or vomiting. Intermittently heart rate goes up to 1 30-1 40. Cardizem was resumed last night. Completed MRI of the brain this morning, moderate motion artifact but no obvious diffusion abnormalities identified. She has not had a bowel movement since admission. Platelets are stable. Leukocytosis is resolved. Medications: Reviewed: Yes Vitals/I&O/Wt Last Vital Signs Temp 98.4 F 03/21/23 08:30 Pulse 115 H 03/21/23 10:00 Resp 25 H 03/21/23 10:00 BP 124/66 03/21/23 10:00 Pulse Ox 98 03/21/23 10:00 O2 Del Method Nasal Cannula 03/21/23 08:30 O2 Flow Rate 4 03/21/23 08:30 FiO2 35 03/20/23 18:00 03/20/23 03/21/23 03/21/23 22:59 06:59 14:59 Intake Total 510 / 850.546 494 / 1344.546 Output Total 1000 / 1000 825 / 1825 Balance -490 / -149.454 -331 / -480.454 Weight last 48 hrs Weight 124.732 kg Physical Exam Narrative: General: No acute distress, AO x3 HEENT: PERRLA, pupils bilaterally equal and reactive, pallors not present Chest: Normal vesicular breath sounds, no added sounds, equal good air entry bilaterally CVS: S1-S2 regular, no murmurs, no tachycardia, no gallops, no rubs Abdomen: Soft, nondistended, mild tenderness in the epigastric region Neuro: No focal deficits, no facial deformity, AO x3, moving all extremities while laying in bed Urinary Catheter Management: Vaughan: Cath Placed During This Visit: yes Reason for Continuing Indwelling Catheter: Accurate Measurement of Urinary Output in Critically Ill Patients Urinary Catheter Date of Insertion: 03/16/23 Urinary Catheter Time of Insertion: 21:15 Data 03/21/23 02:53 03/21/23 02:53 Other Labs: [facility] [address] [address] Magnetic Resonance Report Signed Patient: Arielle Cooper Unit #: [id number] : 1950 Age/Sex: 73 / F ADM Date: 03/16/23 Loc: ICU Room/Bed: ICU03-[address]: Anderson Paez MD Ordering Provider/Ordering MD: Anderson Paez MD Date of Service: 03/21/23 Procedure(s): MR head wo con* [id number] Accession Number(s): [id number] Report Number: [id number] WS: [id number] MRI BRAIN WITHOUT CONTRAST HISTORY: Stroke work up COMPARISON: CT head 03/19/2023 TECHNIQUE: Diffusion imaging, multiplanar T1, T2 and FLAIR imaging obtained. Examination is significantly compromised by motion artifact. Patient with altered mental status. Diffusion-weighted imaging is negative. Mild motion artifact. Significant motion artifact on several sequences. There is mild atrophy and mild small vessel ischemic disease. The extent of remote ischemic changes may be greater than visualize due to motion. No large areas of hemosiderin deposition. Ventricles and extra-axial spaces are normal. No inferior displacement of cerebellar tonsils. The sella turcica and pituitary gland are unremarkable. Dural venous sinuses and [place] demonstrate no abnormality on this unenhanced studies. Paranasal sinuses: Clear. Mastoid air cells: Small amount of fluid in the mastoid air cells. Calvarium and scalp: Intact. MR/MR head wo con* [id number] IMPRESSION: ? 1.? Moderate motion artifact compromising MRI quality. 2.? No obvious infarct or diffusion abnormality. 3.? Mild atrophy and small vessel ischemic disease. ? Micro: Launch?Grid [facility] [address] [place] [id number] JOSÉ VAN, MITER SAW OPERATOR NAME: Arielle Cooper LOC: ICU U #: [id number] AGE/SX: 73/F ROOM: ICU03 RE03/16/[address]: Kimberly Berry MD : 1950 BED: 1 DIS: FAX #: STATUS: ADM IN TLOC: Spec #: [id number] Isael: 03/16/23 Status: RES Req #: [id number] Recd: 03/16/[address]: Dwayne Tello MD Src: Blood SpDesc: Ordered: Bcult Procedure Result Verified Site Blood Culture Preliminary 03/19/23-184 1 OF 3 BOTTLES POSITIVE DIRECT GRAMS STAIN: GRAM NEGATIVE RODS IN CHAINS Organism 1 Escherichia coli Growth 1 BOTTLE Gram Stain Charge Charge for Gram Stain CRITICAL RESULT YES/NO: YES CRITICAL CALLED BY: AMINTA TO AND READ BACK BY: DARREL DATE: 03/17/23 TIME: 2345 E coli M.I.C. RX --------- ------ * Amikacin <=16 S * Amoxicillin/Clavulanate <=8/4 S * Ampicillin <=8 S * Ampicillin/Sulbactam <=8/4 S * Aztreonam <=4 S * Cefepime <=8 S * Ceftriaxone <=1 S * Cefuroxime <=4 S * Ciprofloxacin <=1 S * Gentamicin <=2 S * Imipenem <=1 S * Levofloxacin <=2 S * Tetracycline <=4 S * Trimethoprim/Sulfamethoxazole <=2/38 S * Piperacillin/Tazobactam <=16 S [facility] [address] [place] [id number] JOSÉ VAN, MITER SAW OPERATOR NAME: Arielle Cooper LOC: ICU U #: [id number] AGE/SX: 73/F ROOM: ICU03 RE03/16/[address]: Kimberly Berry MD : 1950 BED: 1 DIS: FAX #: STATUS: ADM IN TLOC: Spec #: [id number] Isael: 03/18/23 Status: RES Req #: [id number] Recd: 03/18/[address]: Los Anthony MD Src: Blood SpDesc: Ordered: Bcult Procedure Result Verified Site Blood Culture Preliminary 03/19/23-125 NEGATIVE TO DATE Blood Culture Preliminary (changed) 03/18/23-1256 SPECIMEN COLLECTED A&P Assessment and plan (1) Septic shock: Patient admitted on March 16, 2023 with chief complaints of confusion, abdominal pain, respiratory distress and found to have septic shock related to E. coli septicemia, likely from acute cholecystitis. She has been on treatment with piperacillin/tazobactam and vancomycin, of which vancomycin was discontinued and patient continued on Zosyn based on culture results. E. coli isolate is susceptible to ceftriaxone, will discontinue piperacillin/tazobactam today and switch to ceftriaxone 2 g IV daily Clinically appears to be improving from a sepsis standpoint. Leukocytosis is resolved. She is afebrile. She is off pressors and hemodynamically stable. Likely source appears to be acute cholecystitis. Surgical recommendation appreciated. Plan for interval cholecystectomy in 6 weeks. Currently transaminitis appears to be improving as does her sepsis. If clinically worsening may need to consider cholecystostomy. No other source appears to be apparent. urine cx no growth, no diarrhea, CT abdomen pelvis without any signs of colitis or other abdominal process. (2) E. coli septicemia: Blood culture cleared as of March 18, 2023. E. coli, garcía susceptible Change antibiotics from Zosyn to ceftriaxone 2 g IV daily. (3) Acute cholecystitis: Appreciate surgery recommendations. Recommended interval cholecystectomy in 6 weeks (4) Atrial fibrillation with RVR: A-fib with RVR. Likely precipitated by current sepsis She was on amiodarone infusion previously, now on p.o. amiodarone 400 mg twice daily Additionally also resumed home dose of Cardizem 30 mg p.o. every 6 hours Resume heparin infusion today for anticoagulation given that MRI does not show any signs of hemorrhage or CVA otherwise. Anticoagulation placed on hold on March 19, 2023 (5) Elevated troponin: Suspect NSTEMI versus type II GA related to sepsis, may also be contributed by A-fib with RVR Baseline troponin at 183, 2-hour at 147, 6-hour at 109. Echocardiogram on March 16, 2023 showed normal LVEF, no regional wall motion abnormalities, LVEF 60 to 65%, grade 2 diastolic dysfunction. Will likely need ischemic work-up as an outpatient. (6) CHF (congestive heart failure): Acute on chronic diastolic CHF exacerbation Elevated BNP at 9400, on auscultation noted to have Rales on examination Overall net +7 L since admission Currently oxygen requirement at 4 L/min. lasix 20 mg IVP now, monitor I/O, renal function (7) CVA (cerebral vascular accident): Diagnosed on March 19, 2023 after being noted to have anisocoria which has since resolved. No current focal deficits otherwise. CT head without contrast on March 19 raise suspicion for acute infarction involving the brainstem. MRI performed earlier this morning does not show any obvious infarct or diffusion abnormality. She was evaluated by speech therapy on March 20, 2023 and was recommended dysphagia 4 diet. Repeat trial today since she is more awake. (8) Acute kidney injury: Creatinine improving from 2.1-1.2 Urine output 1.8 L over last 24 hours (9) Abdominal pain: Continue Dilaudid, reduce frequency from every 3 hours to every 6 hours to avoid oversedation Add tramadol (10) COPD (chronic obstructive pulmonary disease): Chronic Not currently exacerbated Continue Xopenex, budesonide, ipratropium nebulization. Uses BiPAP at nighttime, at home typically uses trilogy (11) Thrombocytopenia: Currently improving Suspect related to sepsis, Currently platelet count at 111 Plan Disposition: Significantly deconditioned owing to acute illness and hospitalization. Will likely benefit from continued rehab at SNF after discharge. PUD prophylaxis: Protonix 40 mg IV every 12 hours DVT prophylaxis: Resuming heparin drip today Attestations Medical Necessity Statement*: Needs continued admission for IV antibiotics, CHF needing IV diuresis, A-fib with RVR, ongoing heparin drip, ongoing abdominal pain and acute cholecystitis needing close monitoring Coding Level of Care Code Critical Care >/= 30 minutes Diagnoses Septic shock A41.9; R65.21 E. coli septicemia A41.51 Acute cholecystitis K81.0 Atrial fibrillation with RVR I48.91 Elevated troponin R77.8 CHF (congestive heart failure) I50.9 CVA (cerebral vascular accident) I63.9 Acute kidney injury N17.9 Abdominal pain R10.9 COPD (chronic obstructive pulmonary disease) J44.9 Thrombocytopenia D69.6
--- NOTE | 2023-03-21 10:38 | XRR_ITS ---
PROCEDURE INFORMATION: Exam: XR Chest Exam date and time: 03/21/2023 10:41 AM Age: 73 years old Clinical indication: Shortness of breath; Additional info: Evaluate for pulm edema TECHNIQUE: Imaging protocol: Radiologic exam of the chest. Views: 1 view. COMPARISON: CR (CHEST, ) 03/19/2023 9:49 AM FINDINGS: Tubes, catheters and devices: The tip of a central venous catheter projects in the SVC. Lungs: There is patchy bibasilar atelectasis. The upper lung zones are clear. Pleural spaces: Unremarkable. No pleural effusion. No pneumothorax. Heart/Mediastinum: Unremarkable. No cardiomegaly. Bones/joints: Unremarkable. XR/XR chest 1V portable [id number] IMPRESSION: Patchy basilar atelectasis.
[2023-03-21] MEDS: FUROsemide 10 mg/mL SDV 2mL 20 MG IVP (10:59)
[2023-03-21] MEDS: cefTRIAXone 2,000 MG in sodium chloride 0.9% (plus) 50 ML 100 MG IV (10:59)
--- NOTE | 2023-03-21 11:12 | PC.SOCIAL ---
IMM Update pg 2 of IMM updated and reviewed w/ patient. Copy provided and Copy in chart dated, and initialed.
--- NOTE | 2023-03-21 13:41 | PM.PN ---
Subjective Subjective: Patient's pain has greatly improved and she is no longer on pressors. Vitals/I&O/Wt Last Vital Signs Temp 98.3 F 03/23/23 11:15 Pulse 71 03/23/23 13:18 Resp 18 03/23/23 13:18 BP 107/74 03/23/23 11:15 Pulse Ox 98 03/23/23 13:18 O2 Del Method Nasal Cannula 03/23/23 13:18 O2 Flow Rate 4 03/23/23 13:18 FiO2 35 03/21/23 18:00 03/22/23 03/23/23 03/23/23 22:59 06:59 14:59 Intake Total 240 / 890 530 / 530 Output Total 2300 / 2300 550 / 2850 Balance -2060 / -1410 -550 / -1960 530 / 530 Weight last 48 hrs Weight 288 lb Weight 276 lb Physical Exam Narrative: General: No acute distress, somnolent but oriented x3 Abdomen: Soft, nondistended,, minimal tenderness in the right upper quadrant, negative Osborn's, no guarding rebound or masses Urinary Catheter Management: Vaughan: Cath Placed During This Visit: yes Reason for Continuing Indwelling Catheter: Acute Urinary Retention or Obstruction Urinary Catheter Date of Insertion: 03/16/23 Urinary Catheter Time of Insertion: 21:15 Data 03/23/23 05:00 03/23/23 05:00 Micro: Microbiology 03/18/23 12:47 Blood Culture - Final Blood NO GROWTH AFTER 5 DAYS 03/18/23 07:30 Blood Culture - Final Blood NO GROWTH AFTER 5 DAYS A&P Assessment and plan (1) Abdominal pain: (2) Acute kidney injury: (3) Bacteremia: (4) Acute calculous cholecystitis: Plan Her bacteremia is most likely secondary to acute calculus cholecystitis. She continues to improve with conservative management. We will continue with antibiotic treatment for possible acute cholecystitis but the objective of an interval cholecystectomy in 6 weeks. Recommend regular diet Medical management per hospitalist Attestations Medical Necessity Statement*: Per primary Coding Level of Care Code 16684 Diagnoses Abdominal pain R10.9 Acute kidney injury N17.9 Bacteremia R78.81 Acute calculous cholecystitis K80.00
--- NOTE | 2023-03-21 16:14 | PC.OT ---
OT EVALUATION ATTEMPTED TWICE THIS P.M. FIRST ATTEMPT: CASE MANAGEMENT WAS VISITING EXTENSIVELY WITH PATIENT. SECOND ATTEMPT: PATIENT SLEEPING SOUNDLY WILL ATTEMPT AGAIN TOMORROW.
[2023-03-21] MEDS: sennosides-docusate Tablet 1 TAB PO (18:54)
[2023-03-22] VITALS (52 sets, daily range): BP systolic 85–126; BP diastolic 56–79; PULSE 86–125; RESP 14–28; TEMP 36.4–37; O2SAT 87–100; BMI 44.5
[2023-03-22] MEDS: pantoprazole 40 mg SDV IVP ×2 (00:53→13:47)
[2023-03-22] MEDS: dilTIAZem 30 mg Tablet PO ×2 (00:53→07:53)
[2023-03-22] MEDS: ipratropium 0.5 mg/2.5 mL Neb INHALATION ×5 (03:09→21:44)
[2023-03-22 04:17] LABS: Basophils % 0.4 %; Eosinophils # 0.2 10^3/uL (0.0-0.8); Eosinophils % 2.4 %; Hematocrit 34.2 % (37.0-47.0); Hemoglobin 10.6 g/dL (11.5-15.3); Lymphocytes # 0.7 10^3/uL (0.8-4.8); Lymphocytes % 8.4 %; Mean Corpuscular Hemoglobin 26.4 pg (28.0-34.0); Mean Corpuscular Volume 85.1 fl (81-99); Mean Platelet Volume 10.1 fL (7.4-10.4); Monocytes # 1.2 10^3/uL (0.2-0.9); Monocytes % 15.5 %; Neutrophils # 5.56 10^3/uL (1.8-7.7); Neutrophils % 71.1 %; Nucleated Red Blood Cells % 0 %; Platelet Count 162 10^3/cmm (130-400); Red Blood Count 4.02 10^6/uL (4.1-5.3); Red Cell Distribution Width 14.6 % (12.1-15.1); White Blood Count 7.8 10^3/uL (4.0-10.0)
[2023-03-22 04:23] LABS: INR 0.99 (0.8-1.2)
[2023-03-22 04:39] LABS: Alanine Aminotransferase 110 U/L (0-33); Albumin Level 2.6 g/dL (3.5-5.2); Alkaline Phosphatase 157 U/L (35-105); Anion Gap 9.5 (5-19); Aspartate Amino Transferase 12 U/L (0-32); Blood Urea Nitrogen 24 mg/dL (8-23); Calcium 9.4 mg/dL (8.5-10.5); Carbon Dioxide 30 mmol/L (22-29); Chloride 106 mmol/L (98-107); Globulin 1.9 g/dL (1.3-4.6); Glucose 103 mg/dL (65-115); Osmolality Calculated 298 mOsm/kg (285-295); Potassium 3.5 mmol/L (3.5-5.1); Sodium 142 mmol/L (136-145); Total Bilirubin 0.3 mg/dL (0.15-1.2); Total Protein 4.5 g/dL (6.6-8.7)
[2023-03-22 05:40] LABS: Glucose Point of Care 105 mg/dL (70-110)
[2023-03-22 05:40] LABS: Glucose Point of Care 98 mg/dL (70-110)
[2023-03-22 05:40] LABS: Glucose Point of Care 139 mg/dL (70-110)
[2023-03-22] MEDS: levalbuterol 1.25 mg/3 mL Neb INHALATION ×3 (07:26→15:36)
[2023-03-22] MEDS: budesonide 0.5 mg/2 mL Neb INHALATION ×2 (07:26→21:43)
[2023-03-22] MEDS: fluoxetine 20 mg Capsule PO (08:00)
[2023-03-22] MEDS: amiodarone 200 mg Tablet 400 MG PO ×2 (08:00→17:20)
[2023-03-22] MEDS: guaiFENesin 600 mg Tablet PO ×2 (08:01→17:20)
[2023-03-22] MEDS: sennosides-docusate Tablet 1 TAB PO ×2 (08:01→17:20)
[2023-03-22 10:13] LABS: ABG PCO2 50.2 mmHg (35-45); ABG PH Result 7.39 (7.35-7.45); Base Excess ABG 4.7 mmol/L (-2.0-2.0); Blood Gas Allen Test POS; Blood Gas Operator Identificat GD; HCO3 ABG 30.6 mmol/L (22-26); Oxygen Saturation ABG 98.6; Potassium Level - ABG 3.6 mmol/L (3.5-5.0)
[2023-03-22 10:14] LABS: Arterial Blood Gas Hematocrit 34.5 % (37-47); Blood Gas Drawn By GD; Blood Gas Sample Site RT RAD; Blood Gas Sample Type ART; Ionized Calcium Level - ABG 1.4 mmol/L (1.1-1.4); Oxygen Device NC; Total Hemoglobin 11.2 g/dL (12-16)
[2023-03-22 10:15] LABS: Carboxyhemoglobin 0.8 %THgb (0.4-20.1); HGB O2 Sat 97.3 % (95-100); Methemoglobin 0.5 % (0.4-1.5)
[2023-03-22] MEDS: cefTRIAXone 2,000 MG in sodium chloride 0.9% (plus) 50 ML 100 MG IV (10:57)
--- NOTE | 2023-03-22 12:00 | PM.PN ---
Subjective Subjective: Afebrile, hemodynamically stable, remains off pressors. On supplemental O2 4 L/min. Leukocytosis remains resolved. ABG taken this morning as patient appeared to be drowsy. She wakes up after calling out her name several times. Denies any abdominal pain today. She has not received any opiates in the last 24 hours. 7.39/50 point 2/110/30 0.6 consistent with chronic compensated hypercapnic respiratory failure. ALT continues to trend down. Alkaline phosphatase stable at 157 today. Medications: Reviewed: Yes Medication Review Details: Generic Name Dose Route Start Last Admin Trade Name Freq PRN Reason Stop Dose Admin Hydrocodone Bitart /Acetaminophen 1 tab 03/17/23 10:31 03/17/23 17:04 Hydrocodone-Acet aminophen 7.5-325 Mg Tablet PO 1 tab QID PRN Administration Pain Albuterol/Ipratrop ium 3 ml 03/17/23 02:00 03/18/23 13:31 Ipratropium-Albu terol 3 Ml Neb INHALATION 3 ml Q6H.RESP KELSEY Administration Budesonide 0.5 mg 03/17/23 08:00 03/18/23 07:58 Budesonide 0.5 M g/2 Ml Neb INHALATION 0.5 mg BID.RESPIRATORY S CH Administration Fluoxetine HCl 20 mg 03/17/23 09:00 03/18/23 11:43 Fluoxetine 20 Mg Capsule PO Not Given DAILY KELSEY Hydromorphone HCl 1 mg 03/18/23 11:44 03/18/23 11:56 Hydromorphone 1 Mg/Ml Inj 1 Ml IVP 1 mg Q3H PRN Administration PAIN Norepinephrine Bit artrate 4 mg 254 mls @ 0 mls/h r 03/16/23 20:00 03/17/23 01:37 / Dextrose IV Infused .Q0M KELSEY Titration Protocol Per Protocol Heparin Sodium/Sod ium Chloride 25,000 unit in 50 0 mls @ 0 mls/hr 03/17/23 00:42 03/18/23 16:37 Heparin Drip IV 11.02 unit/kg/hr .Q0M KELSEY 26.4 mls/hr Titration Protocol Per Protocol Vasopressin 40 uni t/ Sodium 40 mls @ 0.03 mls /min 03/17/23 01:00 03/18/23 01:45 Chloride IV Not Given CONT KELSEY Piperacillin Sod/T azobactam 50 mls @ 12.5 mls /hr 03/17/23 02:00 03/18/23 17:14 Sod 3.375 gm/ So dium Chloride IV 12.5 mls/hr Q8H KELSEY Administration Vancomycin HCl 1,0 00 mg/ 250 mls @ 250 mls /hr 03/18/23 09:00 03/18/23 10:17 Sodium Chloride IV Infused Q36H KELSEY Infusion Norepinephrine Bit artrate 8 mg 508 mls @ 0 mls/h r 03/17/23 01:45 03/18/23 11:57 / Dextrose IV 12 mcg/min .Q0M KELSEY 45.72 mls/hr Administration Protocol Per Protocol Amiodarone HCl 900 mg/ 518 mls @ 0 mls/h r 03/17/23 20:45 03/18/23 17:17 Dextrose/ IV Misce llaneous IV 0.5 mg/min Supplies .Q0M KELSEY 17.27 mls/hr Administration Protocol Per Protocol Ondansetron HCl 4 mg 03/17/23 17:45 03/18/23 17:16 Ondansetron 2 Mg /Ml Sdv 2 Ml IVP 4 mg Q6H KELSEY Administration Pantoprazole Sodiu m 40 mg 03/17/23 00:42 03/18/23 11:55 Pantoprazole 40 Mg Sdv IVP 40 mg Q12H KELSEY Administration Vitals/I&O/Wt Last Vital Signs Temp 97.9 F 03/22/23 07:16 Pulse 108 H 03/22/23 11:19 Resp 22 H 03/22/23 11:09 BP 103/67 03/22/23 10:30 Pulse Ox 98 03/22/23 11:09 O2 Del Method Nasal Cannula 03/22/23 11:09 O2 Flow Rate 4 03/22/23 11:09 FiO2 35 03/21/23 18:00 03/21/23 03/22/23 03/22/23 22:59 06:59 14:59 Intake Total 480 / 548.75 410 / 410 Output Total 1650 / 1650 975 / 2625 Balance -1170 / -1101.25 -975 / -2076.25 410 / 410 Weight last 48 hrs Weight 125.191 kg Physical Exam Narrative: General: No acute distress, AO x3 when wakes up, otherwise has been somnolent and sleeping most of the morning HEENT: PERRLA, pupils bilaterally equal and reactive, pallors not present Chest: Normal vesicular breath sounds, no added sounds, equal good air entry bilaterally CVS: S1-S2 regular, no murmurs, no tachycardia, no gallops, no rubs Abdomen: Soft, nontender, no organomegaly, bowel sounds present Neuro: No focal deficits, no facial deformity, AO x3, power 5/5 in all limbs Urinary Catheter Management: Vaughan: Cath Placed During This Visit: yes Reason for Continuing Indwelling Catheter: Accurate Measurement of Urinary Output in Critically Ill Patients Urinary Catheter Date of Insertion: 03/16/23 Urinary Catheter Time of Insertion: 21:15 Data 03/22/23 03:50 03/22/23 03:50 Micro: Microbiology 03/16/23 20:40 Blood Culture - Final Blood NO GROWTH AFTER 5 DAYS 03/16/23 19:40 Blood Culture - Final Blood Escherichia coli E coli M.I.C. RX --------- ------ * Amikacin <=16 S * Amoxicillin/Clavulanate <=8/4 S * Ampicillin <=8 S * Ampicillin/Sulbactam <=8/4 S * Aztreonam <=4 S * Cefepime <=8 S * Ceftriaxone <=1 S * Cefuroxime <=4 S * Ciprofloxacin <=1 S * Gentamicin <=2 S * Imipenem <=1 S * Levofloxacin <=2 S * Tetracycline <=4 S * Trimethoprim/Sulfamethoxazole <=2/38 S * Piperacillin/Tazobactam <=16 S 03/18: blood cx NGTD A&P Assessment and plan (1) Septic shock: Patient admitted on March 16, 2023 with chief complaints of confusion, abdominal pain, respiratory distress and found to have septic shock related to E. coli septicemia, likely from acute cholecystitis. Blood cx + 03/16, clear as of 03/18 She has been on treatment with piperacillin/tazobactam ---> ceftriaxone 2 g IV daily on 03/21 Clinically appears to be improving from a sepsis standpoint. Leukocytosis is resolved. She is afebrile. She is off pressors and hemodynamically stable. Platelets are improving Likely source appears to be acute cholecystitis. Surgical recommendation appreciated. Plan for interval cholecystectomy in 6 weeks. Currently transaminitis appears to be improving as does her sepsis. If clinically worsening may need to consider cholecystostomy. No other source appears to be apparent. urine cx no growth, no diarrhea, CT abdomen pelvis without any signs of colitis or other abdominal process. (2) E. coli septicemia: Blood culture cleared as of March 18, 2023. E. coli, garcaí susceptible Change antibiotics from Zosyn to ceftriaxone 2 g IV daily. anticipate discharge with total 14 day course on po cipro (3) Acute cholecystitis: Appreciate surgery recommendations. Recommended interval cholecystectomy in 6 weeks (4) Atrial fibrillation with RVR: A-fib with RVR. Likely precipitated by current sepsis Currently HR is better controlled between 100-110 She was on amiodarone infusion previously, now on p.o. amiodarone 400 mg twice daily Additionally also resumed home dose of Cardizem 30 mg p.o. every 6 hours---> increase to 60 mg QID Resumed a/c with heparin infusion 03/21 after MRI did not show any signs of hemorrhage or CVA otherwise. Anticoagulation placed on hold on March 19, 2023 previosuly Change heparin drip to full dose lovenox today. Plan to resume her hoem xarelto at discharge (5) Elevated troponin: Suspect NSTEMI versus type II CT related to sepsis, may also be contributed by A-fib with RVR Baseline troponin at 183, 2-hour at 147, 6-hour at 109. Echocardiogram on March 16, 2023 showed normal LVEF, no regional wall motion abnormalities, LVEF 60 to 65%, grade 2 diastolic dysfunction. Will likely need ischemic work-up as an outpatient. (6) CHF (congestive heart failure): Acute on chronic diastolic CHF exacerbation Elevated BNP at 9400, on auscultation noted to have Rales on examination Overall net +7 L since admission Currently oxygen requirement at 4 L/min. lasix 20 mg IVP daily CXR with bibasilar atelactasis (7) CVA (cerebral vascular accident): Diagnosed on March 19, 2023 after being noted to have anisocoria which has since resolved. No current focal deficits otherwise. CT head without contrast on March 19 raise suspicion for acute infarction involving the brainstem. MRI performed earlier this morning does not show any obvious infarct or diffusion abnormality. She was evaluated by speech therapy on March 20, 2023 and was recommended dysphagia 4 diet. (8) Acute kidney injury: Creatinine improving from 2.1-1.2-1 (9) Abdominal pain: tramadol prn for pain Avoid opaites until more awake (10) COPD (chronic obstructive pulmonary disease): Chronic Not currently exacerbated Continue Xopenex, budesonide, ipratropium nebulization. Uses BiPAP at nighttime, at home typically uses trilogy (11) Thrombocytopenia: Currently improving Suspect related to sepsis, Currently platelet count at 162 (12) Metabolic encephalopathy: Likely related to sepsis CT head and MRI as above MRI without acute CVA on 03/21 TSH WNL check ammonia level Plan Disposition: Significantly deconditioned owing to acute illness and hospitalization. Will likely benefit from continued rehab at SNF after discharge. PUD prophylaxis: Protonix 40 mg IV every 12 hours DVT prophylaxis: Resumed full dose lovenox Transfer out of ICU Attestations Medical Necessity Statement*: needs continued admission for iv diuresis, rate control, iv antibiotics Coding Level of Care Code Acute Code for Chg Fwd High MDM includes number and complexity of problems actively addressed during encounter, amount and/or complexity of data reviewed/ordered and described risk of complication, morbidity or mortality of management as documented Diagnoses Septic shock A41.9; R65.21 E. coli septicemia A41.51 Acute cholecystitis K81.0 Atrial fibrillation with RVR I48.91 Elevated troponin R77.8 CHF (congestive heart failure) I50.9 CVA (cerebral vascular accident) I63.9 Acute kidney injury N17.9 Abdominal pain R10.9 COPD (chronic obstructive pulmonary disease) J44.9 Thrombocytopenia D69.6 Metabolic encephalopathy G93.41
[2023-03-22 13:31] LABS: Ammonia 24 umol/L (11-51)
--- NOTE | 2023-03-22 13:44 | PM.PN ---
Subjective Subjective: Pain controlled. Tolerating regular diet Vitals/I&O/Wt Last Vital Signs Temp 98.3 F 03/23/23 11:15 Pulse 71 03/23/23 13:18 Resp 18 03/23/23 13:18 BP 107/74 03/23/23 11:15 Pulse Ox 98 03/23/23 13:18 O2 Del Method Nasal Cannula 03/23/23 13:18 O2 Flow Rate 4 03/23/23 13:18 FiO2 35 03/21/23 18:00 03/22/23 03/23/23 03/23/23 22:59 06:59 14:59 Intake Total 240 / 890 530 / 530 Output Total 2300 / 2300 550 / 2850 Balance -2060 / -1410 -550 / -1960 530 / 530 Weight last 48 hrs Weight 288 lb Weight 276 lb Physical Exam Narrative: General: No acute distress, somnolent but oriented x3 Abdomen: Soft, nondistended,, minimal tenderness in the right upper quadrant, negative Osborn's, no guarding rebound or masses Urinary Catheter Management: Vaughan: Cath Placed During This Visit: yes Reason for Continuing Indwelling Catheter: Acute Urinary Retention or Obstruction Urinary Catheter Date of Insertion: 03/16/23 Urinary Catheter Time of Insertion: 21:15 Data 03/23/23 05:00 03/23/23 05:00 Micro: Microbiology 03/18/23 12:47 Blood Culture - Final Blood NO GROWTH AFTER 5 DAYS 03/18/23 07:30 Blood Culture - Final Blood NO GROWTH AFTER 5 DAYS A&P Assessment and plan (1) Abdominal pain: (2) Acute kidney injury: (3) Bacteremia: (4) Acute calculous cholecystitis: Plan Her bacteremia is most likely secondary to acute calculus cholecystitis. She continues to improve with conservative management. We will continue with antibiotic treatment for possible acute cholecystitis but the objective of an interval cholecystectomy in 6 weeks. Recommend regular diet Medical management per hospitalist Attestations Medical Necessity Statement*: Per primary Coding Level of Care Code 44113 Diagnoses Abdominal pain R10.9 Acute kidney injury N17.9 Bacteremia R78.81 Acute calculous cholecystitis K80.00
[2023-03-22] MEDS: enoxaparin 100 mg/mL Syringe 120 MG SUBCUT (13:46)
[2023-03-22] MEDS: dilTIAZem 60 mg Tablet PO ×2 (13:47→19:18)
[2023-03-22] MEDS: FUROsemide 10 mg/mL SDV 2mL 20 MG IVP (13:47)
[2023-03-22 20:15] LABS: Glucose Point of Care 105 mg/dL (70-110)
--- NOTE | 2023-03-22 21:19 | PC.NURSE ---
Transfer Patient transferred to [place] [id number] via bed. All vitals stable on transfer and all belongings with patient at time. Receiving nurse at bedside.
[2023-03-23] VITALS (14 sets, daily range): BP systolic 106–116; BP diastolic 70–78; PULSE 57–104; RESP 16–18; TEMP 36.4–36.8; O2SAT 91–98; BMI 46.5
[2023-03-23] MEDS: enoxaparin 100 mg/mL Syringe 120 MG SUBCUT ×2 (00:13→15:30)
[2023-03-23] MEDS: pantoprazole 40 mg SDV IVP (00:18)
[2023-03-23] MEDS: ipratropium 0.5 mg/2.5 mL Neb INHALATION ×6 (00:45→23:56)
[2023-03-23] MEDS: dilTIAZem 60 mg Tablet PO ×4 (01:41→18:05)
[2023-03-23 05:09] LABS: Basophils # 0.1 10^3/uL (0.0-0.1); Basophils % 0.8 %; Eosinophils # 0.2 10^3/uL (0.0-0.8); Eosinophils % 2.9 %; Hematocrit 34.6 % (37.0-47.0); Hemoglobin 10.7 g/dL (11.5-15.3); Lymphocytes # 0.8 10^3/uL (0.8-4.8); Lymphocytes % 10.3 %; Mean Corpuscular HGB Conc 30.9 g/dL (30.0-36.0); Mean Corpuscular Hemoglobin 26.8 pg (28.0-34.0); Mean Corpuscular Volume 86.5 fl (81-99); Mean Platelet Volume 9.8 fL (7.4-10.4); Monocytes # 0.9 10^3/uL (0.2-0.9); Monocytes % 11.7 %; Neutrophils # 5.27 10^3/uL (1.8-7.7); Neutrophils % 69.4 %; Nucleated Red Blood Cells % 0 %; Platelet Count 202 10^3/cmm (130-400); Red Cell Distribution Width 14.3 % (12.1-15.1); White Blood Count 7.6 10^3/uL (4.0-10.0)
[2023-03-23 05:41] LABS: Alanine Aminotransferase 81 U/L (0-33); Albumin Level 2.6 g/dL (3.5-5.2); Alkaline Phosphatase 138 U/L (35-105); Anion Gap 11.6 (5-19); Aspartate Amino Transferase 18 U/L (0-32); Blood Urea Nitrogen 21 mg/dL (8-23); Calcium 9.5 mg/dL (8.5-10.5); Carbon Dioxide 30 mmol/L (22-29); Chloride 104 mmol/L (98-107); Globulin 1.9 g/dL (1.3-4.6); Glucose 98 mg/dL (65-115); Osmolality Calculated 297 mOsm/kg (285-295); Potassium 3.6 mmol/L (3.5-5.1); Sodium 142 mmol/L (136-145); Total Bilirubin 0.2 mg/dL (0.15-1.2); Total Protein 4.5 g/dL (6.6-8.7)
[2023-03-23] MEDS: guaiFENesin 600 mg Tablet PO ×2 (09:49→18:04)
[2023-03-23] MEDS: amiodarone 200 mg Tablet 400 MG PO ×2 (09:49→18:05)
[2023-03-23] MEDS: sennosides-docusate Tablet 1 TAB PO ×2 (09:49→18:04)
[2023-03-23] MEDS: fluoxetine 20 mg Capsule PO (09:49)
[2023-03-23] MEDS: cefTRIAXone 2,000 MG in sodium chloride 0.9% (plus) 50 ML 100 MG IV (09:49)
--- NOTE | 2023-03-23 11:10 | PC.SOCIAL ---
IMM Updated. Updated pt on IMM. No questions voiced. Provided pt a copy. Initialed, dated, & timed copy in chart.
--- NOTE | 2023-03-23 13:45 | P.PN_ITS ---
Subjective Subjective: Patient much more alert today and nontender. Tolerating regular diet Vitals/I&O/Wt Last Vital Signs Temp 98.3 F 03/23/23 11:15 Pulse 71 03/23/23 13:18 Resp 18 03/23/23 13:18 BP 107/74 03/23/23 11:15 Pulse Ox 98 03/23/23 13:18 O2 Del Method Nasal Cannula 03/23/23 13:18 O2 Flow Rate 4 03/23/23 13:18 FiO2 35 03/21/23 18:00 03/22/23 03/23/23 03/23/23 22:59 06:59 14:59 Intake Total 240 / 890 530 / 530 Output Total 2300 / 2300 550 / 2850 Balance -2060 / -1410 -550 / -1960 530 / 530 Weight last 48 hrs Weight 288 lb Weight 276 lb Physical Exam Narrative: General: No acute distress, somnolent but oriented x3 Abdomen: Soft, nondistended, nontender, no guarding rebound or masses Urinary Catheter Management: Vaughan: Cath Placed During This Visit: yes Reason for Continuing Indwelling Catheter: Acute Urinary Retention or Obstructi on Urinary Catheter Date of Insertion: 03/16/23 Urinary Catheter Time of Insertion: 21:15 Data 03/23/23 05:00 03/23/23 05:00 Micro: Microbiology 03/18/23 12:47 Blood Culture - Final Blood NO GROWTH AFTER 5 DAYS 03/18/23 07:30 Blood Culture - Final Blood NO GROWTH AFTER 5 DAYS A&P Assessment and plan (1) Abdominal pain: (2) Acute kidney injury: (3) Bacteremia: (4) Acute calculous cholecystitis: Plan Her bacteremia is most likely secondary to acute calculus cholecystitis. She continues to improve with conservative management. We will continue with antibiotic treatment for possible acute cholecystitis but the objective of an interval cholecystectomy in 6 weeks. Follow-up in my office in 2 weeks for plans of cholecystectomy in approximately 6 weeks General surgery will sign off. Please reconsult if the need arises Medical management per hospitalist Attestations Medical Necessity Statement*: Per primary Coding Level of Care Code 10298 Diagnoses Abdominal pain R10.9 Acute kidney injury N17.9 Bacteremia R78.81 Acute calculous cholecystitis K80.00
--- NOTE | 2023-03-23 13:59 | PM.PN ---
Subjective Subjective: Patient is more awake and alert today. She was able to move from bed to bedside commode and participated with PT Medications: Reviewed: Yes Vitals/I&O/Wt Last Vital Signs Temp 98.3 F 03/23/23 11:15 Pulse 71 03/23/23 13:18 Resp 18 03/23/23 13:18 BP 107/74 03/23/23 11:15 Pulse Ox 98 03/23/23 13:18 O2 Del Method Nasal Cannula 03/23/23 13:18 O2 Flow Rate 4 03/23/23 13:18 FiO2 35 03/21/23 18:00 03/22/23 03/23/23 03/23/23 22:59 06:59 14:59 Intake Total 240 / 890 530 / 530 Output Total 2300 / 2300 550 / 2850 Balance -2060 / -1410 -550 / -1960 530 / 530 Weight last 48 hrs Weight 130.635 kg Weight 125.191 kg Physical Exam Narrative: General: No acute distress, AO x3, more conversant today HEENT: PERRLA, pupils bilaterally equal and reactive, pallors not present Chest: Normal vesicular breath sounds, no added sounds, equal good air entry bilaterally CVS: S1-S2 regular, no murmurs, no tachycardia, no gallops, no rubs Abdomen: Soft, nontender, no organomegaly, bowel sounds present Neuro: No focal deficits, no facial deformity, AO x3, power 5/5 in all limbs Urinary Catheter Management: Vaughan: Cath Placed During This Visit: yes Reason for Continuing Indwelling Catheter: Acute Urinary Retention or Obstruction Urinary Catheter Date of Insertion: 03/16/23 Urinary Catheter Time of Insertion: 21:15 Data 03/23/23 05:00 03/23/23 05:00 Micro: Microbiology 03/18/23 12:47 Blood Culture - Final Blood NO GROWTH AFTER 5 DAYS 03/18/23 07:30 Blood Culture - Final Blood NO GROWTH AFTER 5 DAYS A&P Assessment and plan (1) Septic shock: Patient admitted on March 16, 2023 with chief complaints of confusion, abdominal pain, respiratory distress and found to have septic shock related to E. coli septicemia, likely from acute cholecystitis. Blood cx + 03/16, clear as of 03/18 She has been on treatment with piperacillin/tazobactam ---> ceftriaxone 2 g IV daily on 03/21 . Patient is more alert and awake today. She currently has right IJ in place which we will go ahead and remove. Convert IV ceftriaxone to p.o. ciprofloxacin in anticipation of upcoming discharge in the next 24 hours. Overall recommend 14 days of treatment from clearance of blood cultures Clinically appears to be improving from a sepsis standpoint. Leukocytosis is resolved. She is afebrile. She is off pressors and hemodynamically stable. Platelets are improving Likely source appears to be acute cholecystitis. Surgical recommendation appreciated. Plan for interval cholecystectomy in 6 weeks. Currently transaminitis is improving (2) E. coli septicemia: Blood culture cleared as of March 18, 2023. E. coli, garcía susceptible Change antibiotics from Zosyn to ceftriaxone 2 g IV daily --> Cirpofloxacin 500mg po BID today anticipate discharge with total 14 day course on po cipro (3) Acute cholecystitis: Appreciate surgery recommendations. Recommended interval cholecystectomy in 6 weeks (4) Atrial fibrillation with RVR: A-fib with RVR. Likely precipitated by current sepsis Currently HR is well controlled on po. amiodarone 400 mg twice daily and cardizem 60 mg QID Resumed a/c with lovenox 03/21 after MRI did not show any signs of hemorrhage or CVA otherwise. resume xarelto at discharge (5) Elevated troponin: Suspect NSTEMI versus type II OR related to sepsis, may also be contributed by A-fib with RVR Baseline troponin at 183, 2-hour at 147, 6-hour at 109. Echocardiogram on March 16, 2023 showed normal LVEF, no regional wall motion abnormalities, LVEF 60 to 65%, grade 2 diastolic dysfunction. Will likely need ischemic work-up as an outpatient. (6) CHF (congestive heart failure): Acute on chronic diastolic CHF exacerbation Elevated BNP at 9400, on auscultation noted to have Rales on examination Still net +3.5 L since admission Currently oxygen requirement at 4 L/min. lasix 20 mg IVP daily CXR with bibasilar atelactasis (7) CVA (cerebral vascular accident): Diagnosed on March 19, 2023 after being noted to have anisocoria which has since resolved. No current focal deficits otherwise. CT head without contrast on March 19 raise suspicion for acute infarction involving the brainstem. MRI performed earlier this morning does not show any obvious infarct or diffusion abnormality. She was evaluated by speech therapy on March 20, 2023 and was recommended dysphagia 4 diet. (8) Acute kidney injury: Creatinine improving from 2.1-1.2-1 (9) Abdominal pain: tramadol prn for pain Avoid opaites until more awake (10) COPD (chronic obstructive pulmonary disease): Chronic Not currently exacerbated Continue Xopenex, budesonide, ipratropium nebulization. Uses BiPAP at nighttime, at home typically uses trilogy (11) Thrombocytopenia: Currently improving Suspect related to sepsis, Currently platelet count at 162 (12) Metabolic encephalopathy: Likely related to sepsis CT head and MRI as above MRI without acute CVA on 03/21 TSH WNL WNL ammonia level improving today Plan Disposition: Significantly deconditioned owing to acute illness and hospitalization. Will likely benefit from continued rehab at SNF after discharge. PUD prophylaxis: Protonix 40 mg IV every 12 hours DVT prophylaxis: Resumed full dose lovenox Transfer out of ICU Attestations Medical Necessity Statement*: Change iv medications to oral, monitor mentation, if continues to improve, anticipate discharge over next 24 hrs to SNF for continued rehab given significant deconditioning Coding Level of Care Code Acute Code for Chg Fwd High MDM includes number and complexity of problems actively addressed during encounter, amount and/or complexity of data reviewed/ordered and described risk of complication, morbidity or mortality of management as documented Diagnoses Septic shock A41.9; R65.21 E. coli septicemia A41.51 Acute cholecystitis K81.0 Atrial fibrillation with RVR I48.91 Elevated troponin R77.8 CHF (congestive heart failure) I50.9 CVA (cerebral vascular accident) I63.9 Acute kidney injury N17.9 Abdominal pain R10.9 COPD (chronic obstructive pulmonary disease) J44.9 Thrombocytopenia D69.6 Metabolic encephalopathy G93.41
[2023-03-23] MEDS: FUROsemide 40 mg Tablet PO (15:29)
--- NOTE | 2023-03-23 16:24 | PC.SLP ---
Patient asleep, did not wake when name was called.
[2023-03-23] MEDS: pantoprazole DR 40 mg Tablet PO (18:04)
[2023-03-23] MEDS: metroNIDAZOLE 500 MG Tablet PO (18:04)
[2023-03-23] MEDS: ciprofloxacin 500 mg Tablet PO (20:11)
[2023-03-23] MEDS: budesonide 0.5 mg/2 mL Neb INHALATION (20:54)
[2023-03-23] MEDS: levalbuterol 1.25 mg/3 mL Neb INHALATION (23:56)
[2023-03-24] VITALS (10 sets, daily range): BP systolic 110–138; BP diastolic 70–87; PULSE 71–100; RESP 16–27; TEMP 36.5–36.8; O2SAT 94–98
[2023-03-24] MEDS: enoxaparin 100 mg/mL Syringe 120 MG SUBCUT ×2 (00:18→13:15)
[2023-03-24] MEDS: dilTIAZem 60 mg Tablet PO ×3 (00:18→13:14)
[2023-03-24] MEDS: ipratropium 0.5 mg/2.5 mL Neb INHALATION ×3 (03:05→12:10)
[2023-03-24] MEDS: levalbuterol 1.25 mg/3 mL Neb INHALATION (03:06)
[2023-03-24] MEDS: pantoprazole DR 40 mg Tablet PO (06:31)
[2023-03-24] MEDS: budesonide 0.5 mg/2 mL Neb INHALATION (07:32)
[2023-03-24] MEDS: ciprofloxacin 500 mg Tablet PO (09:28)
[2023-03-24] MEDS: guaiFENesin 600 mg Tablet PO (09:28)
[2023-03-24] MEDS: sennosides-docusate Tablet 1 TAB PO (09:28)
[2023-03-24] MEDS: fluoxetine 20 mg Capsule PO (09:28)
[2023-03-24] MEDS: amiodarone 200 mg Tablet 400 MG PO (09:28)
[2023-03-24] MEDS: metroNIDAZOLE 500 MG Tablet PO (09:28)
[2023-03-24] MEDS: FUROsemide 40 mg Tablet PO (09:29)
--- NOTE | 2023-03-24 12:18 | PM.DCS ---
Discharge Providers Date of Admission: 03/16/23 22:46 Date of Discharge: March 24, 2023 Attending Provider at Admission: Los Anthony MD Attending Provider at Discharge: Kimberly Berry MD Primary Care Provider: Sylvia Anthony MD Diagnoses at Discharge Discharge Diagnosis (1) Septic shock: Status: Acute (2) E. coli septicemia: Status: Acute (3) Acute cholecystitis: Status: Acute (4) Atrial fibrillation with RVR: Status: Acute (5) Elevated troponin: Status: Acute (6) CHF (congestive heart failure): Status: Acute (7) CVA (cerebral vascular accident): Status: Acute (8) Acute kidney injury: Status: Acute (9) Abdominal pain: Status: Acute (10) COPD (chronic obstructive pulmonary disease): Status: Acute Permanent problem details: sees Dr. MichellerKassy (11) Thrombocytopenia: Status: Acute (12) Metabolic encephalopathy: Status: Acute Reason for Visit Reason for Visit: RESP. DISTRESS Hospital Course Hospital Course Arielle Cooper is a 73 year old female that presented to the emergency department on 03/16 with confusion, respiratory distress, abdominal pain.? Hospital course as follows: # Septic shock: Patient admitted on March 16, 2023 with chief complaints of confusion, abdominal pain, respiratory distress and found to have septic shock related to E. coli septicemia, likely from acute cholecystitis. Blood cx + 03/16, clear as of 03/18 She received treatment with piperacillin/tazobactam ---> ceftriaxone 2 g IV daily on 03/21---> changed to Cipro 500mg po BID on 03/23 Overall recommend 14 days of treatment from clearance of blood cultures Clinically improved from a sepsis standpoint.? Leukocytosis is resolved.? She is afebrile.? She is off pressors and hemodynamically stable. Platelets are normalized. Likely source appears to be acute cholecystitis.? Surgical recommendation appreciated.? Plan for interval cholecystectomy in 6 weeks. Currently transaminitis? is improving # E. coli septicemia: Blood culture cleared as of March 18, 2023. # Acute cholecystitis: Appreciate surgery recommendations. Recommended interval cholecystectomy in 6 weeks # Atrial fibrillation with RVR: A-fib with RVR.? Likely precipitated by sepsis Currently HR is well controlled on po. amiodarone 400 mg twice daily and cardizem? 60 mg QID Resumed home dose xarelto at discharge, during hospital admission she received full dose lovenox. # Elevated troponin: Suspect NSTEMI versus type II MO related to sepsis, may also be contributed by A-fib with RVR Baseline troponin at 183, 2-hour at 147, 6-hour at 109. Echocardiogram on March 16, 2023 showed normal LVEF, no regional wall motion abnormalities, LVEF 60 to 65%, grade 2 diastolic dysfunction. Will likely need ischemic work-up as an outpatient once recovered from acute illness # CHF (congestive heart failure): Acute on chronic diastolic CHF exacerbation Elevated BNP at 9400, on auscultation noted to have Rales on examination Currently oxygen requirement at 4 L/min, has been stable over several days Currently on lasix 20mg po daily (7) CVA (cerebral vascular accident): Diagnosed on March 19, 2023 after being noted to have anisocoria which has since resolved. No current focal deficits otherwise. CT head without contrast on March 19 raised suspicion for acute infarction involving the brainstem. MRI performed 03/21 does not show any obvious infarct or diffusion abnormality. She was evaluated by speech therapy on March 20, 2023 and was recommended dysphagia 4 diet.? (8) Acute kidney injury: Creatinine improving from 2.1-1.2->1 (9) Abdominal pain: ?tramadol prn for pain much improved now (10) COPD (chronic obstructive pulmonary disease): Chronic Not currently exacerbated Continue Xopenex, budesonide, ipratropium nebulization. Uses BiPAP at nighttime, at home typically uses trilogy (11) Thrombocytopenia: Resolved (12) Metabolic encephalopathy: Likely related to sepsis, Now resolved by discharge. patient is AAO x3, able to have a conversation CT head and MRI as above MRI without acute CVA on 03/21 TSH WNL WNL? ammonia level Significantly deconditioned as a result of her hospitalization. Transition to SNF for continued rehab. Physical Exam Narrative: General: No acute distress, AO x3 HEENT: PERRLA, pupils bilaterally equal and reactive, pallors not present Chest: Normal vesicular breath sounds, no added sounds, equal good air entry bilaterally CVS: S1-S2 regular, no murmurs, no tachycardia, no gallops, no rubs Abdomen: Soft, nontender, no organomegaly, bowel sounds present Neuro: No focal deficits, no facial deformity, AO x3, power 5/5 in all limbs Urinary Catheter Management: Vaughan: Cath Placed During This Visit: yes Reason for Continuing Indwelling Catheter: Acute Urinary Retention or Obstruction Urinary Catheter Date of Insertion: 03/16/23 Urinary Catheter Time of Insertion: 21:15 Discharge Data Studies Completed and Pending Completed Studies During Hospitalization Category Date Time Status CT ang ches abdpel [id number] Stat Cat Scan 03/16/23 20:[address] head wo con* [id number] Routine Cat Scan 03/19/23 13:20 Completed CXRP [XR chest 1V portable [id number]] Routine Exams 03/21/23 10:38 Completed XR chest 1V portable [id number] Routine Exams 03/19/23 09:28 Completed XR chest 1V portable [id number] Stat Exams 03/16/23 19:32 Completed XR chest 1V portable [id number] Stat Exams 03/17/23 00:03 Completed MR head wo con* [id number] Routine MRI 03/21/23 07:00 Completed CV. echo wo/w contrast [id number] Stat Ultrasound 03/16/23 20:48 Completed US gall bladder [id number] Routine Ultrasound 03/17/23 00:42 Completed US renal BI* [id number] Routine Ultrasound 03/17/23 13:43 Completed Pending at discharge Category Date Time Status SARS Covid-2 Antigen Stat Lab 03/24/23 12:10 Received Radiology Impressions Chest/Abdomen/Pelvis CTA 03/16/23 20:12 IMPRESSION: 1. Aorta is intact. 2. Coronary artery atherosclerotic calcifications. 3. Emphysematous changes. 4. Bibasilar atelectasis versus infiltrate. 5. Small hiatal hernia. 6. Hepatic steatosis. 7. Bilateral renal cysts, negative follow-up advised. 8. Vaughan catheter in the urinary bladder. 9. Mild perinephric edema bilaterally likely reflecting renal insufficiency, please correlate for pyelonephritis. 10. Scattered prominent subcentimeter short axis mediastinal lymph nodes, nonspecific. 11. Right hip arthroplasty changes. Gallbladder Ultrasound 03/17/23 00:42 IMPRESSION: 1. Abnormal gallbladder. There is diffuse gallbladder wall thickening with numerous stones. Small caliber lumen. Consider acute cholecystitis. 2. No bile duct dilatation. 3. Moderate hepatomegaly and hepatic steatosis. 4. Marked fluid distention of the stomach. 5. RIGHT renal cyst. Renal Ultrasound 03/17/23 13:43 IMPRESSION: 1. Extremely difficult and limited evaluation of the kidneys due to body habitus. 2. Large superior pole RIGHT renal cyst. 3. No obvious hydronephrosis. Head CT 03/19/23 13:20 IMPRESSION: No CT evidence of acute intracranial hemorrhage, mass or acute infarction in the large vascular territory in the supratentorial brain. Small hypodensities in the brainstem (left ventral triston and to the right of the midline in the midbrain) are indeterminate. Acute infarctions are not excluded. ASSESSMENT: ASPECTS ([place] Stroke Program Early CT Score) is 10. ADDENDUM: 03/19/23 [id number] THIS REPORT CONTAINS FINDINGS THAT MAY BE CRITICAL TO PATIENT CARE. The findings were verbally communicated via telephone conference with ALICE ACUNA at 2:36 PM CDT on 03/19/2023. The findings were acknowledged and understood. Head MRI 03/21/23 07:00 IMPRESSION: 1. Moderate motion artifact compromising MRI quality. 2. No obvious infarct or diffusion abnormality. 3. Mild atrophy and small vessel ischemic disease. Chest X-Ray 03/21/23 10:38 IMPRESSION: Patchy basilar atelectasis. Laboratory Results WBC 7.6 10^3/uL (4.0-10.0) 03/23/23 05:00 RBC 4.00 10^6/uL (4.1-5.3) L 03/23/23 05:00 Hgb 10.7 g/dL (11.5-15.3) L 03/23/23 05:00 Hct 34.6 % (37.0-47.0) L 03/23/23 05:00 MCV 86.5 fl (81-99) 03/23/23 05:00 MCH 26.8 pg (28.0-34.0) L 03/23/23 05:00 MCHC 30.9 g/dL (30.0-36.0) 03/23/23 05:00 RDW 14.3 % (12.1-15.1) 03/23/23 05:00 Plt Count 202 10^3/cmm (130-400) 03/23/23 05:00 MPV 9.8 fL (7.4-10.4) 03/23/23 05:00 Neut % (Auto) 69.4 % 03/23/23 05:00 Lymph % (Auto) 10.3 % 03/23/23 05:00 [place] % (Auto) 11.7 % 03/23/23 05:00 Eos % (Auto) 2.9 % 03/23/23 05:00 Baso % (Auto) 0.8 % 03/23/23 05:00 Neut # (Auto) 5.27 10^3/uL (1.8-7.7) 03/23/23 05:00 Lymph # (Auto) 0.8 10^3/uL (0.8-4.8) 03/23/23 05:00 [place] # (Auto) 0.9 10^3/uL (0.2-0.9) 03/23/23 05:00 Eos # (Auto) 0.2 10^3/uL (0.0-0.8) 03/23/23 05:00 Baso # (Auto) 0.1 10^3/uL (0.0-0.1) 03/23/23 05:00 Nucleated RBC % (auto) 0 % 03/23/23 05:00 Total Counted 100 (0-100) 03/16/23 19:40 Atypical Lymphs % 1.0 % (0-5) 03/16/23 19:40 Absolute Neutrophils 18.2 10^3/cmm (1.4-6.5) H 03/16/23 19:40 Segmented Neutrophils 60 % 03/16/23 19:40 Abs Segm Neuts (Man) 12.8 10/cmm (1.6-7.1) H 03/16/23 19:40 Band Neutrophils 25.0 % 03/16/23 19:40 Abs Band Neuts (Man) 5.4 10^3/cmm (0.0-1.2) H 03/16/23 19:40 Absolute Lymphocytes 0.4 10^3/cmm (1.2-3.4) L 03/16/23 19:40 Lymphocytes (Manual) 1 % 03/16/23 19:40 Monocytes (Manual) 5.0 % 03/16/23 19:40 Absolute Monocytes 1.1 10^3/cmm (0.1-0.6) H 03/16/23 19:40 Eosinophils (Manual) 0 % 03/16/23 19:40 Absolute Eosinophils 0.0 10^3/cmm (0.0-0.7) 03/16/23 19:40 Basophils (Manual) 0.0 % 03/16/23 19:40 Absolute Basophils 0.0 10^3/cmm (0.0-0.2) 03/16/23 19:40 Metamyelocytes 8.0 % 03/16/23 19:40 Myelocytes 0.0 % 03/16/23 19:40 Promyelocytes 0.0 % 03/16/23 19:40 Nucleated RBCs 0.0 /100WBC (0-1) 03/16/23 19:40 Nucleated RBCs # 0.0 /100WBC 03/23/23 05:00 Toxic Vacuolation 1+ H 03/16/23 19:40 Dohle Bodies 2+ H 03/16/23 19:40 Platelet Estimate Normal (Normal) 03/16/23 19:40 PT 13.40 SECONDS (12.1-14.9) 03/22/23 03:50 INR 0.99 (0.8-1.2) 03/22/23 03:50 APTT 27.5 SECONDS (23.9-36.7) 03/21/23 02:53 Fibrinogen 681 mg/dL (174-498) H 03/21/23 02:53 Specimen Type Art 03/22/23 09:35 Sample Site Rt rad 03/22/23 09:35 ABG pH 7.39 (7.35-7.45) 03/22/23 09:35 ABG pCO2 50.2 mmHg (35-45) H 03/22/23 09:35 ABG pO2 110.0 mmHg (80.0-100.0) H 03/22/23 09:35 ABG HCO3 30.6 mmol/L (22-26) H 03/22/23 09:35 ABG O2 Saturation 98.6 03/22/23 09:35 ABG Base Excess 4.7 mmol/L (-2.0-2.0) H 03/22/23 09:35 Michael Test Pos 03/22/23 09:35 A-a O2 Gradient Not Reportable 03/22/23 09:35 Hematocrit 34.5 % (37-47) L 03/22/23 09:35 Hgb O2 Saturation 97.3 % (95-100) 03/22/23 09:35 Carboxyhemoglobin 0.8 %THgb (0.4-20.1) 03/22/23 09:35 Methemoglobin 0.5 % (0.4-1.5) 03/22/23 09:35 Total Hemoglobin 11.2 g/dL (12-16) L 03/22/23 09:35 Sodium 140.0 mmol/L (131-143) 03/22/23 09:35 Potassium 3.6 mmol/L (3.5-5.0) 03/22/23 09:35 Glucose 105.0 mg/dL (70-115) 03/22/23 09:35 Ionized Calcium 1.4 mmol/L (1.1-1.4) 03/22/23 09:35 O2 Delivery Device Nh 03/22/23 09:35 FiO2 36.0 % 03/22/23 09:35 Specimen Drawn By Gd 03/22/23 09:35 Blast Furnace Blower ID Gd 03/22/23 09:35 Sodium 142 mmol/L (136-145) 03/23/23 05:00 Potassium 3.6 mmol/L (3.5-5.1) 03/23/23 05:00 Chloride 104 mmol/L (98-107) 03/23/23 05:00 Carbon Dioxide 30 mmol/L (22-29) H 03/23/23 05:00 Anion Gap 11.6 (5-19) 03/23/23 05:00 BUN 21 mg/dL (8-23) 03/23/23 05:00 Creatinine 1.1 mg/dL (0.5-0.9) H 03/23/23 05:00 GFR Calculation Not Reportable 03/23/23 05:00 Glucose 98 mg/dL (65-115) 03/23/23 05:00 POC Glucose 105 mg/dL (70-110) 03/22/23 20:12 Calculated Osmolality 297 mOsm/kg (285-295) H 03/23/23 05:00 Lactic Acid 4.4 mmol/L (0.5-2.2) H* 03/16/23 19:40 Lactic Acid (Sepsis) 2.8 mmol/L (0.5-2.2) H 03/16/23 22:04 Calcium 9.5 mg/dL (8.5-10.5) 03/23/23 05:00 Magnesium 1.9 mg/dL (1.7-2.3) 03/17/23 21:00 Total Bilirubin 0.2 mg/dL (0.15-1.2) 03/23/23 05:00 AST 18 U/L (0-32) 03/23/23 05:00 ALT 81 U/L (0-33) H 03/23/23 05:00 Alkaline Phosphatase 138 U/L (35-105) H 03/23/23 05:00 Ammonia 24 umol/L (11-51) 03/22/23 13:03 Creatine Kinase 113 U/L (26-192) 03/19/23 02:17 Troponin T Baseline 183 ng/L (0-10) H* 03/16/23 19:40 Troponin T 120 Minute 147.0 ng/L (0-10) H 03/16/23 21:26 Delta Troponin T -36.0 ABS# (0-10) L 03/16/23 21:26 Troponin T Hi Sens 6Hr 109.7 ng/L (0-10) H 03/17/23 01:36 Troponin T Hi Sens 6Hr Delta -73.3 ng/L (0-12) L 03/17/23 01:36 C-Reactive Protein 177.2 mg/L (0.0-4.9) H 03/16/23 19:40 NT-Pro-B Natriuret Pep 9497 pg/mL (0-125) H 03/16/23 19:40 Total Protein 4.5 g/dL (6.6-8.7) L 03/23/23 05:00 Albumin 2.6 g/dL (3.5-5.2) L 03/23/23 05:00 Globulin 1.9 g/dL (1.3-4.6) 03/23/23 05:00 Lipase 19 U/L (13-60) 03/16/23 21:26 Procalcitonin 73.88 ng/mL (0-0.5) H 03/19/23 02:17 TSH 2.67 uIU/mL (0.27-4.20) 03/16/23 19:40 Random Cortisol 37.77 ug/dL (2.47-19.5) H 03/16/23 21:26 Urine Color Cancelled 03/16/23 22:55 Urine Appearance Cancelled 03/16/23 22:55 Urine pH Cancelled 03/16/23 22:55 Ur Specific [place] Cancelled 03/16/23 22:55 Urine Protein Cancelled 03/16/23 22:55 Urine Glucose (UA) Cancelled 03/16/23 22:55 Urine Ketones Cancelled 03/16/23 22:55 Urine Blood Cancelled 03/16/23 22:55 Urine Nitrate Cancelled 03/16/23 22:55 Urine Bilirubin Cancelled 03/16/23 22:55 Prot Sulfosalicylic Acd Cancelled 03/16/23 22:55 Urine Urobilinogen Cancelled 03/16/23 22:55 Ur Leukocyte Esterase Cancelled 03/16/23 22:55 Urine RBC 5-10 /hpf (0-2) H 03/16/23 21:23 Urine WBC 15-25 /hpf (0-5) H 03/16/23 21:23 Ur Squamous Epith Cells 25-40 /hpf (0-5) H 03/16/23 21:23 Amorphous Sediment 2+ /hpf 03/16/23 21:23 Urine Bacteria 2+ /hpf (NONE) H 03/16/23 21:23 Urine Mucus 2+ /hpf 03/16/23 21:23 Nasal Influ A H1 2008 PCR Not detected (NOT DETECT) 03/17/23 20:09 Salicylates < 0.3 mg/dL (3-10) L 03/16/23 19:40 Acetaminophen < 5.0 ug/mL (10-30) L 03/16/23 19:40 Ethyl Alcohol < 10 mg/dL (0-10) 03/16/23 19:40 Adenovirus (PCR) Not detected (NOT DETECT) 03/17/23 20:09 C. pneumoniae DNA (PCR) Not detected (NOT DETECT) 03/17/23 20:09 Coronavirus 229E (PCR) Not detected (NOT DETECT) 03/17/23 20:09 Hepatitis A IgM Ab Non-reactive (Nonreactive) 03/16/23 19:40 Hep Bs Antigen Non-reactive (Nonreactive) 03/16/23 19:40 Hep B Core IgM Ab Non-reactive (Nonreactive) 03/16/23 19:40 Hepatitis C Antibody Non-reactive (Nonreactive) 03/16/23 19:40 Human Metapneumovir PCR Not detected (NOT DETECT) 03/17/23 20:09 Influenza A (H1) PCR Not detected (NOT DETECT) 03/17/23 20:09 Influenza A (H3) PCR Not detected (NOT DETECT) 03/17/23 20:09 Influenza Type A (PCR) Not detected (NOT DETECT) 03/17/23 20:09 Influenza Type B (PCR) Not detected (NOT DETECT) 03/17/23 20:09 M. pneumoniae (PCR) Not detected (NOT DETECT) 03/17/23 20:09 Parainfluenza 1 (PCR) Not detected (NOT DETECT) 03/17/23 20:09 Parainfluenza 2 (PCR) Not detected (NOT DETECT) 03/17/23 20:09 Parainfluenza 3 (PCR) Not detected (NOT DETECT) 03/17/23 20:09 Parainfluenza 4 (PCR) Not detected (NOT DETECT) 03/17/23 20:09 RSV Type A (PCR) Not detected (NOT DETECT) 03/17/23 20:09 RSV Type B (PCR) Not detected (NOT DETECT) 03/17/23 20:09 Entero/Rhino (PCR) Not detected (NOT DETECT) 03/17/23 20:09 SARS-CoV-2 (PCR) Not detected (NOT DETECT) 03/17/23 20:09 Vitals Last Vital Signs Temp 97.9 F 03/24/23 08:00 Pulse 90 03/24/23 12:12 Resp 18 03/24/23 12:12 BP 113/70 03/24/23 08:00 Pulse Ox 94 03/24/23 12:12 O2 Del Method Nasal Cannula 03/24/23 12:12 O2 Flow Rate 4 03/24/23 12:12 FiO2 35 03/21/23 18:00 Discharge Plan Discharge Patient Disposition: Xfer SNF Condition: Stable Prescriptions: New Pacerone 200 mg Tablet 200 mg PO BID 30 Days Qty: 60 0RF metronidazole 500 mg Tablet 500 mg PO BID 8 Days Qty: 16 0RF ciprofloxacin HCl 500 mg Tablet 500 mg PO BID@0900,2100 8 Days Qty: 16 0RF tramadol 50 mg tablet 50 mg PO Q8H PRN (Reason: pain) 7 Days Qty: 20 0RF Continued potassium chloride 10 mEq capsule, extended release 10 meq PO BID allopurinol 100 mg tablet 100 mg PO QAM Xarelto 20 mg tablet 20 mg PO BEDTIME metformin 500 mg tablet 500 mg PO QAM fluoxetine 20 mg capsule 20 mg PO QAM albuterol sulfate 90 mcg/actuation HFA aerosol inhaler 2 puff INHALATION Q6H PRN (Reason: Shortness Of Breath) (DME) custom molded accommodative orthotic See Rx Instructions .ROUTE .MEDSUPPLY Qty: 1 0RF Rx Instructions: As directed albuterol sulfate 2.5 mg /3 mL (0.083 %) solution for nebulization 2.5 mg INHALATION Q4H PRN (Reason: Shortness Of Breath) gabapentin 100 mg capsule 100 mg PO BEDTIME (DME) oxygen-air delivery systems Device See Rx Instructions .Route Rx Instructions: 4 Liters per [place] (DME) Diabetic Shoes with 3 pairs of inserts See Rx Instructions .Route .MEDSUPPLY Qty: 1 0RF Rx Instructions: As directed by HOME Nathalietri Aerosphere 160-9-4.8 mcg/actuation HFA aerosol inhaler 2 inh inhalation BID Qty: 10.7 3RF multivitamin Tablet 1 tab PO QAM tolterodine 2 mg capsule,extended release 24hr 2 mg PO QAM diltiazem HCl 180 mg capsule,extended release 24hr 180 mg PO QAM omeprazole 40 mg capsule,delayed release(DR/EC) 40 mg PO BID hydrocodone-acetaminophen 7.5-325 mg tablet 1 tab PO QID PRN (Reason: Pain) Changed Lasix 20 mg tablet 20 mg PO DAILY 30 Days Qty: 30 0RF Discontinued lisinopril 2.5 mg tablet 2.5 mg PO BEDTIME celecoxib [Celebrex] 200 mg capsule 200 mg PO BID Discharge Orders: Discharge Order (Routine); Ordered 03/24/23 Ordered By: Kimberly Berry Referrals: [facility] [Outside] Sylvia Anthony MD [Primary Care Provider] - Bro Roldan DO [Physician] - 2 weeks Discharge Diet: As Directed, Low Cholesterol and Low Fat Discharge Activity: Increase activity as tolerated and As per PT/OT instructions Patient Instructions: Ciprofloxacin (By mouth), Metronidazole (By mouth), Amiodarone (By mouth), Tramadol (By mouth), Opioid Safety Activity Restrictions/Additional Instructions: Needs night time trilogy vent or Bipap Currently on dysphagia 4 pureed diet- may advance as tolerated follow up with general surgery in 2 weeks Discharge Attestations Time Spent in Discharge Care*: greater than 30 min Quality Metrics Clinical Quality Measures [ No reported AMI, CVA or VTE this stay] Coding Level of Care Code Acute Code for Chg Fwd Diagnoses Septic shock A41.9; R65.21 E. coli septicemia A41.51 Acute cholecystitis K81.0 Atrial fibrillation with RVR I48.91 Elevated troponin R77.8 CHF (congestive heart failure) I50.9 CVA (cerebral vascular accident) I63.9 Acute kidney injury N17.9 Abdominal pain R10.9 COPD (chronic obstructive pulmonary disease) J44.9 Thrombocytopenia D69.6 Metabolic encephalopathy G93.41
[2023-03-24 12:34] LABS: SARS Covid-2 Antigen negative (Negative)
== END 2023-03-24 15:38 | disposition skilled nursing facility (03) | DRG 871 ==
LOC: ER 22:51 → ICU 23:04 → MEDSURG 03-18 20:28 → ICU 03-18 20:29 → MEDSURG 03-22 20:53
PROVIDERS: Internal Medicine; Admitting Provider Internal Medicine; Emergency Provider Emergency Medicine; PCP Family Medicine; Visit Provider Student in an Organized Health Care Education/Training Program
DX: A41.51 Sepsis due to Escherichia coli [E. coli] (principal); G93.41 Metabolic encephalopathy; I21.A1 Myocardial infarction type 2; R65.21 Severe sepsis with septic shock; I50.33 Acute on chronic diastolic (congestive) heart failure; I63.9 Cerebral infarction, unspecified; K80.10 Calculus of gallbladder with chronic cholecystitis without obstruction; I13.0 Hypertensive heart and chronic kidney disease with heart failure and stage 1 through stage 4 chronic kidney disease, or unspecified chronic kidney disease; N17.9 Acute kidney failure, unspecified; J96.12 Chronic respiratory failure with hypercapnia; N39.0 Urinary tract infection, site not specified; I48.91 Unspecified atrial fibrillation; N18.9 Chronic kidney disease, unspecified; R13.10 Dysphagia, unspecified; J44.9 Chronic obstructive pulmonary disease, unspecified; D69.6 Thrombocytopenia, unspecified; Z79.01 Long term (current) use of anticoagulants; Z79.84 Long term (current) use of oral hypoglycemic drugs; Z79.51 Long term (current) use of inhaled steroids; Z79.891 Long term (current) use of opiate analgesic; M10.9 Gout, unspecified; Z99.81 Dependence on supplemental oxygen; G47.30 Sleep apnea, unspecified
CPT/HCPCS: 36415; 36416; 36556; 36592; 36600; 51702; 70450; 70551; 71045; 71275; 74174; 76705; 76770; 80051; 80053; 80074; 80307; 81001; 82140; 82330; 82533; 82550; 82803; 82805; 82962; 83605; 83690; 83735; 83880; 84132; 84145; 84443; 84484; 85007; 85025; 85384; 85610; 85730; 86140; 87040; 87077; 87086; 87150; 87186; 87205; 87426; 87486; 87581; 87633; 87641; 92507; 92523; 92526; 92610; 93005; 93306; 94640; 94660; 96365; 96367; 96372; 96375; 96376; 97110; 97161; 97166; 97530; 97535; 99291; C8929; C9113; J0282; J0696; J1170; J1644; J1650; J1720; J1940; J2405; J2543; J3370; J3372; J3475; J3490; J7030; J7040; J7050; J7060; J7608; J7614; J7626; J7644; Q9956; Q9967

== ENCOUNTER → 2023-04-27 13:38 | Outpatient (BNVA) | payer MEDICARE, OTHER, SELFPAY | PROVIDERS: PCP Family Medicine; Visit Provider Surgery | DX: K80.20 Calculus of gallbladder without cholecystitis without obstruction (principal) | CPT/HCPCS: 99203; 99214 ==

== ENCOUNTER → 2023-05-10 08:37 | Outpatient (BNVA) | payer MEDICARE, OTHER, SELFPAY | PROVIDERS: PCP Family Medicine; Visit Provider Nurse Practitioner Family | DX: I89.0 Lymphedema, not elsewhere classified (principal); L97.512 Non-pressure chronic ulcer of other part of right foot with fat layer exposed; Z09 Encounter for follow-up examination after completed treatment for conditions other than malignant neoplasm | CPT/HCPCS: 97597; 99213; A6219 ==

== ENCOUNTER 2023-05-16 15:35 | Emergency (ER) | payer MEDICARE, OTHER, SELFPAY ==
[2023-05-16 15:37] VITALS: BP 129/82; PULSE 88; TEMP 37.2; O2SAT 96; BMI 41.6
--- NOTE | 2023-05-16 15:48 | USR_ITS ---
PROCEDURE INFORMATION: Exam: US Abdomen, Limited; Right Upper Quadrant Exam date and time: 05/16/2023 4:03 PM Age: 73 years old Clinical indication: Abdominal pain; Localized; Right upper quadrant (ruq); TECHNIQUE: Imaging protocol: Real time ultrasound of the abdomen with image documentation. Limited exam focused on the right upper quadrant. COMPARISON: US gall bladder [id number] 03/17/2023 1:56 AM FINDINGS: Liver: The liver is enlarged measuring 20.5 cm. Gallbladder: There are multiple shadowing stones in the gallbladder. Gallbladder wall is thickened measuring 7.4 mm. There is a positive sonographic Osborn's sign. Biliary ducts: Common bile duct is mildly dilated measuring 7.8 mm. Pancreas: Visualized pancreas is unremarkable. Right kidney: There is a 6.3 x 7.1 cm cyst with benign features off the upper pole of the right kidney. US/US gall bladder [id number] IMPRESSION: Cholelithiasis with associated gallbladder wall thickening and a positive sonographic Osborn's sign consistent with acute cholecystitis.
[2023-05-16 16:00] VITALS: BP 110/50; PULSE 93; RESP 16; O2SAT 93
--- NOTE | 2023-05-16 16:27 | ED_ITS ---
HPI - Abdominal Pain General: Chief Complaint: Abdominal Pain Stated Complaint: COPD EXACERBATION Time Seen by Provider: 05/16/23 15:37 Source: patient and EMS Mode of arrival: EMS Limitations: no limitations History of Present Illness: 73-year-old female who was admitted here back in February for sepsis from a cholecystitis patient is being seen by a surgeon and is scheduled to have her gallbladder taken out next Tuesday. States today she started having vomiting along with some pain. She does have a history of COPD EMS states she had wheezing they gave her breathing treatment Solu-Medrol in route her main complaint currently is abdominal pain she denies any shortness of breath she is on oxygen chronically she is 95% here on her home 3 L of oxygen. She states her pain is improved also she denies any fevers denies any worsening proving factors. Associated Symptoms: Reports nausea and vomiting; Denies chills, diarrhea, dysuria and fever(s) Review of Systems Const: Denies: fever(s), chills, body aches or change in appetite ENMT: Denies: throat pain or dental pain Card: Denies: chest pain Resp: Reports: dyspnea GI: Reports: abdominal pain, nausea and vomiting; Denies: diarrhea : Denies: dysuria Musc: Denies: neck pain or back pain Skin/Breast: Denies: rash Neuro: Denies: headache(s) Psych: Denies: depression PFSH ED PFSH: Medical History A-fib Diagnosed in [address] Sears/Dr. Gonzales Anticoagulation adequate with anticoagulant therapy Xarelto COPD (chronic obstructive pulmonary disease) sees Dr. Turner. Diabetes Diagnosed in 2012 and is managed by PMD Essential hypertension Diagnosed in 2004 and is on medication managed by PMD Gout Diagnosed in 2010 No pertinent past medical history Denies seizures, DVT/PE PCP: Dr. Anthony Osteoarthritis of knees, bilateral Osteoarthritis of right hip Oxygen dependent Since 1999. Psoriasis Diagnosed in 2011--not on any medication--sees Dr. Michael Sleep apnea Surgical History S/P appendectomy Performed [place] [address] Malik at [facility] in [place], [place] S/P carpal tunnel release Carpal tunnel release on the right side, performed in [address] Moody at [place], [place] Carpal tunnel release on the left side, performed in [address] Medina at [place], [place] S/P cataract surgery Removal of cataract from the left eye in February [address] Ruby in [place], [place] Removal of cataract from the right eye in April [address] Ruby in [place], [place] S/P dilation and curettage Performed in [address] Jones at [place], [place] S/P excision of lipoma Excision of Lipoma from the breast, performed in [address] Shelton at [place], [place] Excision of Lipoma from the left breast, performed 11/22/[address] Agrawal at [place], [place] S/P hysterectomy Vaginal procedure---thinks that her ovaries were removed---performed in February [address] Jones at [place], [place] S/P partial thyroidectomy Performed in [address] Shelton at [place], [place] S/P thoracotomy Performed in 2001 S/P tonsillectomy Performed in [address] Malik at [facility] in [place], [place] S/P trigger finger release Bilateral, performed in [address] Chaney at [place], [place] S/P tubal ligation Laparoscopic procedure---performed in [address] Malik at [facility] in [place], [place] Status post lumbar surgery Lumbar surgery at L3/L4, performed in 1975 at [facility] Status post total hip replacement, right Right side---performed 07/08/[address] Keith at [facility] in [place], [place] Family History Father Diabetes Heart disease Sister Heart disease Breast cancer diagnosed in her 40s Denies family history of Colon cancer Ovarian cancer Hyperlipidemia Hypertension Uterine cancer Thyroid condition Stroke Social History Smoking and tobacco status: never smoked Substance/Drug Use: never Do you think of yourself as: Straight/Heterosexual Physical Exam Const: COMMON NORMALS: no acute distress, patient oriented x3 and healthy appearing HENMT: COMMON NORMALS: normocephalic and atraumatic HEAD & SCALP: normocephalic and atraumatic Eye: COMMON NORMALS: Equal, round and reactive pupils present and EOMs intact bilaterally PUPIL: Yes Equal, round and reactive pupils present Neck/C-Spine: COMMON NORMALS: full ROM and supple Chest: COMMONS NORMALS: normal inspection of the chest and normal palpation of entire chest wall Resp: COMMON NORMALS: normal respiratory effort, No retractions, No use of accessory muscles and clear to auscultation bilaterally AUSCULTATION: clear to auscultation bilaterally Cardio: COMMON NORMALS: regular rate, regular rhythm and No murmurs present (Cardio) RATE: regular rate RHYTHM: regular rhythm GI: COMMON NORMALS: Normal to inspection, nondistended, normoactive bowel sounds present, Soft to palpation, non-tender and no masses PALPATION: Yes Soft to palpation Extremity: COMMON NORMALS: normal to inspection and full ROM Neuro: COMMON NORMALS: patient oriented x3, moves all extremities and no focal motor deficits Psych: COMMON NORMALS: mental status grossly normal, Normal thought process present and cooperative THOUGHT PROCESS: Normal thought process present Skin: COMMON NORMALS: no rashes or lesions noted and no wounds GENERAL SKIN EXAM: no rashes or lesions noted Course Vital Signs: Vital signs: Vital Signs Temperature 99.0 F 05/16/23 15:37 Pulse Rate 88 05/16/23 15:37 Blood Pressure 129/82 05/16/23 15:37 Pulse Oximetry 96 05/16/23 15:37 Oxygen Delivery Me thod Room Air 05/16/23 15:37 MDM - Abdominal Pain Medical Decision Making Patient presents with abdominal pain is mild in nature and since resolved her exam this time she has no right upper quadrant tenderness minimally elevated white count ultrasound does show gallstones with a slightly thickened bladder wall. I spoke to Dr. Roldan patient scheduled for surgery on Tuesday she is wanting to go home we will place her on Augmentin and pain meds she is to have her surgery as scheduled inform her if she has worsening pain or fever vomiting she is to return she understands agrees to plan. Medical Records I reviewed the patient's medical records. Lab Data I reviewed the patient's lab results. 05/16/23 16:25 05/16/23 16:25 Labs/Radiology: Radiology Impressions Gallbladder Ultrasound 05/16/23 15:48 IMPRESSION: Cholelithiasis with associated gallbladder wall thickening and a positive sonographic Osborn's sign consistent with acute cholecystitis. Laboratory Results WBC 12.58 10^3/uL (3.29-11.43) H 05/16/23 16:25 RBC 3.85 10^6/uL (3.85-5.65) 05/16/23 16:25 Hgb 10.40 g/dL (11.27-16.99) L 05/16/23 16:25 Hct 34.8 % (36-47) L 05/16/23 16:25 MCV 90.4 fl (85-98) 05/16/23 16:25 MCH 27.0 pg (27-33) 05/16/23 16:25 MCHC 29.9 g/dL (30-55) L 05/16/23 16:25 RDW 15.1 % (12.1-15.1) 05/16/23 16:25 Plt Count 254 10^3/cmm (157-399) 05/16/23 16:25 MPV 9.0 fL (7.4-10.4) 05/16/23 16:25 Neut % (Auto) 89.9 % 05/16/23 16:25 Lymph % (Auto) 3.2 % 05/16/23 16:25 [place] % (Auto) 6.1 % 05/16/23 16:25 Eos % (Auto) 0.2 % 05/16/23 16:25 Baso % (Auto) 0.3 % 05/16/23 16:25 Neut # (Auto) 11.30 10^3/uL (1.8-7.7) H 05/16/23 16:25 Lymph # (Auto) 0.4 10^3/uL (0.8-4.8) L 05/16/23 16:25 [place] # (Auto) 0.8 10^3/uL (0.2-0.9) 05/16/23 16:25 Eos # (Auto) 0.0 10^3/uL (0.0-0.8) 05/16/23 16:25 Baso # (Auto) 0.0 10^3/uL (0.0-0.1) 05/16/23 16:25 Nucleated RBC % (auto) 0 % 05/16/23 16:25 Nucleated RBCs # 0.0 /100WBC 05/16/23 16:25 Sodium 138 mmol/L (136-145) 05/16/23 16:25 Potassium 3.9 mmol/L (3.5-5.1) 05/16/23 16:25 Chloride 97 mmol/L (98-107) L 05/16/23 16:25 Carbon Dioxide 36 mmol/L (22-29) H 05/16/23 16:25 Anion Gap 8.9 (5-19) 05/16/23 16:25 BUN 11 mg/dL (8-23) 05/16/23 16:25 Creatinine 0.7 mg/dL (0.5-0.9) 05/16/23 16:25 GFR Calculation Not Reportable 05/16/23 16:25 Glucose 141 mg/dL (65-115) H 05/16/23 16:25 Calculated Osmolality 288 mOsm/kg (285-295) 05/16/23 16:25 Calcium 9.4 mg/dL (8.5-10.5) 05/16/23 16:25 Total Bilirubin 0.6 mg/dL (0.15-1.2) 05/16/23 16:25 AST 16 U/L (0-32) 05/16/23 16:25 ALT 23 U/L (0-33) 05/16/23 16:25 Alkaline Phosphatase 103 U/L (35-105) 05/16/23 16:25 Total Protein 6.4 g/dL (6.6-8.7) L 05/16/23 16:25 Albumin 3.5 g/dL (3.5-5.2) 05/16/23 16:25 Globulin 2.9 g/dL (1.3-4.6) 05/16/23 16:25 Lipase 24 U/L (13-60) 05/16/23 16:25 All radiology interpretation(s) finalized by discharge Discharge Plan Discharge Patient Disposition: Home Clinical Impression: Cholelithiasis Condition: Stable Prescriptions: New hydrocodone-acetaminophen 5-325 mg tablet 1 tab PO Q6H PRN (Reason: pain) Qty: 14 0RF ondansetron 4 mg tablet,disintegrating 4 mg PO Q6H PRN (Reason: nausea and vomiting) Qty: 14 0RF Augmentin 500-125 mg tablet 1 tab PO BID Qty: 14 0RF No Action potassium chloride 10 mEq capsule, extended release 10 meq PO BID allopurinol 100 mg tablet 100 mg PO QAM Xarelto 20 mg tablet 20 mg PO BEDTIME metformin 500 mg tablet 500 mg PO QAM fluoxetine 20 mg capsule 20 mg PO QAM albuterol sulfate 90 mcg/actuation HFA aerosol inhaler 2 puff INHALATION Q6H PRN (Reason: Shortness Of Breath) (DME) custom molded accommodative orthotic See Rx Instructions .ROUTE .MEDSUPPLY Qty: 1 0RF Rx Instructions: As directed albuterol sulfate 2.5 mg /3 mL (0.083 %) solution for nebulization 2.5 mg INHALATION Q4H PRN (Reason: Shortness Of Breath) gabapentin 100 mg capsule 100 mg PO BEDTIME (DME) oxygen-air delivery systems Device See Rx Instructions .Route Rx Instructions: 4 Liters per NC (DME) Diabetic Shoes with 3 pairs of inserts See Rx Instructions .Route .MEDSUPPLY Qty: 1 0RF Rx Instructions: As directed by HOME Nathalietri Aerosphere 160-9-4.8 mcg/actuation HFA aerosol inhaler 2 inh inhalation BID Qty: 10.7 3RF multivitamin Tablet 1 tab PO QAM tolterodine 2 mg capsule,extended release 24hr 2 mg PO QAM diltiazem HCl 180 mg capsule,extended release 24hr 180 mg PO QAM omeprazole 40 mg capsule,delayed release(DR/EC) 40 mg PO BID hydrocodone-acetaminophen 7.5-325 mg tablet 1 tab PO QID PRN (Reason: Pain) Lasix 20 mg tablet 20 mg PO DAILY 30 Days Qty: 30 0RF Discharge Orders: Discharge ED (Routine); Ordered 05/16/23 Ordered By: Catrachito Crow Referrals: Bro Roldan DO [Physician] - 1-3 days Sylvia Anthony MD [Primary Care Provider] - Discharge Diet: Advance as tolerated Discharge Activity: Resume usual activity Patient Instructions: Cholelithiasis Coding Level of Care Code ED Ice Maker for Monig Javier
[2023-05-16 16:37] LABS: Basophils % 0.3 %; Eosinophils % 0.2 %; Hematocrit 34.8 % (36-47); Lymphocytes # 0.4 10^3/uL (0.8-4.8); Lymphocytes % 3.2 %; Mean Corpuscular HGB Conc 29.9 g/dL (30-55); Mean Corpuscular Volume 90.4 fl (85-98); Monocytes # 0.8 10^3/uL (0.2-0.9); Monocytes % 6.1 %; Neutrophils % 89.9 %; Nucleated Red Blood Cells % 0 %; Platelet Count 254 10^3/cmm (157-399); Red Blood Count 3.85 10^6/uL (3.85-5.65); Red Cell Distribution Width 15.1 % (12.1-15.1); White Blood Count 12.58 10^3/uL (3.29-11.43)
[2023-05-16] MEDS: ondansetron 2 mg/ML SDV 2 mL 4 MG IVP (16:43)
[2023-05-16 16:59] LABS: Alanine Aminotransferase 23 U/L (0-33); Albumin Level 3.5 g/dL (3.5-5.2); Alkaline Phosphatase 103 U/L (35-105); Anion Gap 8.9 (5-19); Aspartate Amino Transferase 16 U/L (0-32); Blood Urea Nitrogen 11 mg/dL (8-23); Calcium 9.4 mg/dL (8.5-10.5); Carbon Dioxide 36 mmol/L (22-29); Chloride 97 mmol/L (98-107); Globulin 2.9 g/dL (1.3-4.6); Glucose 141 mg/dL (65-115); Lipase 24 U/L (13-60); Osmolality Calculated 288 mOsm/kg (285-295); Potassium 3.9 mmol/L (3.5-5.1); Sodium 138 mmol/L (136-145); Total Bilirubin 0.6 mg/dL (0.15-1.2); Total Protein 6.4 g/dL (6.6-8.7)
[2023-05-16 17:00] VITALS: BP 118/73; PULSE 84; RESP 18; O2SAT 94
[2023-05-16 18:05] VITALS: BP 121/77; PULSE 86; RESP 18; O2SAT 93
[2023-05-16 18:10] VITALS: BP 121/77; PULSE 86; RESP 18; O2SAT 93
== END 2023-05-16 18:14 | disposition home or self-care (01) ==
PROVIDERS: Emergency Provider Emergency Medicine; PCP Family Medicine
DX: K80.20 Calculus of gallbladder without cholecystitis without obstruction (principal); Z79.84 Long term (current) use of oral hypoglycemic drugs; J44.9 Chronic obstructive pulmonary disease, unspecified; E11.9 Type 2 diabetes mellitus without complications; I10 Essential (primary) hypertension; Z99.81 Dependence on supplemental oxygen
CPT/HCPCS: 76705; 80053; 83690; 85025; 96374; 99284; J2405

== ENCOUNTER → 2023-05-17 09:36 | Outpatient (BNVA) | payer MEDICARE, OTHER, SELFPAY | PROVIDERS: PCP Family Medicine; Visit Provider Nurse Practitioner Family | DX: Z09 Encounter for follow-up examination after completed treatment for conditions other than malignant neoplasm (principal) | CPT/HCPCS: 99212 ==

== ENCOUNTER → 2023-05-19 09:20 | Outpatient (BNVA) | payer MEDICARE, OTHER, SELFPAY | PROVIDERS: PCP Family Medicine; Visit Provider Nurse Practitioner Family | DX: I48.91 Unspecified atrial fibrillation (principal); R94.31 Abnormal electrocardiogram [ECG] [EKG] | CPT/HCPCS: 93005; 99213 ==

== ENCOUNTER 2023-05-23 09:39 | Day surgery (SDC) | payer MEDICARE, OTHER, SELFPAY ==
[2023-05-19 09:59] VITALS: BMI 41.6
--- NOTE | 2023-05-19 10:12 | ANES.PREANE2 ---
Pre-Anesthetic Assessment Height/Weight: Height 1.68 m Weight 117.027 kg Operation Date: 05/23/23 14:00 Proposed Procedures p Laparoscopic Cholecystectomy 19477,K80.20(Not Applicable) - Bro Roldan, DO Pulmonary Chronic Obstructive Pulmonary Disease (4 L NC) and Sleep Apnea CV/HEM Atrial Fibrillation and Hypertension Echo 2022 ?CONCLUSIONS ?1. Normal left ventricular size, systolic function and wall ?thickness, with no regional wall motion abnormalities. Left ?ventricular ejection fraction is estimated at 60-65 %. Grade II ?diastolic dysfunction, moderately elevated filling pressures. ?2. Normal right ventricular size and possibly mildly decreased ?systolic function. ?3. No prior similar studies to compare. Metabolic Diabetes Mellitus and Morbid Obesity Anesthetic Plan ASA status: 4 Anesthesia: General Risk of > 500 ml blood loss (7ml/kg in children): No Medications/Allergies Home Medications Medication Instructions Recorded Confirmed Last Taken Type allopurinol 100 mg tablet 100 mg PO QAM 10/12/19 05/19/23 05/19/23 History metformin 500 mg tablet 500 mg PO QAM 10/12/19 05/19/23 05/19/23 History potassium chloride 10 mEq 10 meq PO BID 10/12/19 05/19/23 05/19/23 History capsule,extended release rivaroxaban 20 mg tablet (Xarelto) 20 mg PO BEDTIME 10/12/19 05/19/23 05/19/23 History albuterol sulfate 90 mcg/actuation 2 puff inhalation Q6H PRN 05/09/20 05/19/23 05/19/23 History aerosol inhaler Shortness Of Breath albuterol sulfate 2.5 mg/3 mL 2.5 mg inhalation Q4H PRN 06/17/20 05/19/23 05/19/23 History (0.083 %) solution for nebulization Shortness Of Breath fluoxetine 20 mg capsule 20 mg PO QAM 12/29/20 05/19/23 05/19/23 History custom molded accommodative #1 ea 04/02/21 05/19/23 Unknown Rx orthotic gabapentin 100 mg capsule 100 mg PO BEDTIME 08/20/21 05/19/23 05/19/23 History oxygen-air delivery systems 01/27/22 05/19/23 Unknown History Diabetic Shoes with 3 pairs of #1 ea 08/10/22 05/19/23 Unknown Rx inserts budesonide 160 mcg-glycopyr 9 2 inh inhalation BID #10.7 grams 02/21/23 05/19/23 05/19/23 Rx mcg-formot 4.8 mcg/actuation HFA inhaler (Breztri Aerosphere) diltiazem HCl 180 mg 180 mg PO QAM 03/17/23 05/19/23 05/19/23 History capsule,extended release 24 hr multivitamin 1 tab PO QAM 03/17/23 05/19/23 05/19/23 History omeprazole 40 mg capsule,delayed 40 mg PO BID 03/17/23 05/19/23 05/19/23 History release tolterodine 2 mg capsule,extended 2 mg PO QAM 03/17/23 05/19/23 05/19/23 History release 24 hr furosemide 20 mg tablet (Lasix) 20 mg PO DAILY 30 days #30 tabs 03/24/23 05/19/23 05/19/23 Rx amoxicillin 500 mg-potassium 1 tab PO BID #14 tabs 05/16/23 05/19/23 05/19/23 Rx clavulanate 125 mg tablet (Augmentin) hydrocodone 5 mg-acetaminophen 325 1 tab PO Q6H PRN pain #14 tabs 05/16/23 05/19/23 05/19/23 Rx mg tablet ondansetron 4 mg disintegrating 4 mg PO Q6H PRN nausea and 05/16/23 05/19/23 05/19/23 Rx tablet vomiting #14 tabs amiodarone 200 mg tablet 200 mg PO DAILY #90 tabs 05/19/23 05/19/23 05/19/23 Rx Allergies Allergy/AdvReac Type Severity Reaction Status Date / Time adhesive tape Allergy ALGY-Hives Verified 05/19/23 09:50 PFSH Anesthesia Medical History A-fib Diagnosed in [address] Sears/Dr. Gonzales Anticoagulation adequate with anticoagulant therapy Xarelto COPD (chronic obstructive pulmonary disease) sees Dr. Turner. Diabetes Diagnosed in 2012 and is managed by PMD Essential hypertension Diagnosed in 2004 and is on medication managed by PMD Gout Diagnosed in 2010 No pertinent past medical history Denies seizures, DVT/PE PCP: Dr. Anthony Osteoarthritis of knees, bilateral Osteoarthritis of right hip Oxygen dependent Since 1999. Psoriasis Diagnosed in 2011--not on any medication--sees Dr. Michael Sleep apnea Surgical History S/P appendectomy Performed [place] [address] Malik at [facility] in [place], [place] S/P carpal tunnel release Carpal tunnel release on the right side, performed [place] [address] Moody at [facility], [place] Carpal tunnel release on the left side, performed in [address] Medina at [place], [place] S/P cataract surgery Removal of cataract from the left eye in February [address] Ruby in [place], [place] Removal of cataract from the right eye in April [address] Ruby in [place], [place] S/P dilation and curettage Performed [address] Jones at [place], [place] S/P excision of lipoma Excision of Lipoma from the breast, performed in [address] Shelton at [facility] in [place], [place] Excision of Lipoma from the left breast, performed 11/22/[address] Agrawal at [facility] in [place], [place] S/P hysterectomy Vaginal procedure---thinks that her ovaries were removed---performed in February [address] Jones at [place], [place] S/P partial thyroidectomy Performed in [address] Shelton at [facility] in [place], [place] S/P thoracotomy Performed in 2001 S/P tonsillectomy Performed in [address] Malik at [facility] in [place], [place] S/P trigger finger release Bilateral, performed in [address] Chaney at [place], [place] S/P tubal ligation Laparoscopic procedure---performed in [address] Malik at [facility] in [place], [place] Status post lumbar surgery Lumbar surgery at L3/L4, performed in 1975 at [facility] Status post total hip replacement, right Right side---performed 07/08/[address] Keith at [facility] in [place], [place] Family History Father Diabetes Heart disease Sister Heart disease Breast cancer diagnosed in her 40s Denies family history of Colon cancer Ovarian cancer Hyperlipidemia Hypertension Uterine cancer Thyroid condition Stroke Social History Smoking and tobacco status: never smoked Substance/Drug Use: never Do you think of yourself as: Straight/Heterosexual Data Anesthesia Cardiac Studies: Echocardiogram 03/16/23
[2023-05-23] VITALS (11 sets, daily range): BP systolic 98–109; BP diastolic 44–75; PULSE 54–80; RESP 16–25; TEMP 36.3–36.8; O2SAT 94–100; BMI 41.6
[2023-05-23] MEDS: sodium chloride 0.9% 1,000 ML 30 ML IV (10:23)
--- NOTE | 2023-05-23 10:24 | W.PM.OPSUD ---
Surgery/Procedure H&P Update DATE OF PROCEDURE: May 23, 2023 DATE H&P PERFORMED: 04/27/23 H&P UPDATE INFORMATION: I have reviewed H&P completed within last 30 days, I have examined patient prior to procedure and No changes to prior documentation PLANNED PROCEDURE: Operation Date: 05/23/23 11:20 Proposed Procedures p Laparoscopic Cholecystectomy 38587,K80.20(Not Applicable) - Bro Roldan,
[2023-05-23 10:33] LABS: Glucose Point of Care 97 mg/dL (70-110)
--- NOTE | 2023-05-23 10:52 | ANES.PAUD2 ---
Pre-Anesthetic Update Pre-Anesthetic Assessment: Date of Surgery/Procedure: 05/23/23 Proposed Procedure: Operation Date: 05/23/23 11:20 Proposed Procedures p Laparoscopic Cholecystectomy 84211,K80.20(Not Applicable) - Bro Roldan, DO Any changes to Pre-Anesthetic Assessment?: No Last Intake: Intake Last Liquid Date 05/22/23 Last Liquid Time 21:00 Last Solid Date 05/22/23 Last Solid Time 18:00 Vitals: Temperature 98.2 F 05/23/23 09:50 Temperature Source Temporal Artery S can 05/23/23 09:50 Pulse Rate 80 05/23/23 09:50 Respiratory Rate 24 H 05/23/23 09:50 Blood Pressure 109/70 05/23/23 09:50 Blood Pressure Rosamaria n 83 05/23/23 09:50 Pulse Oximetry 96 05/23/23 09:50 Oxygen Delivery Me thod Nasal Cannula 05/23/23 10:14 Oxygen Flow Rate 4 05/23/23 10:14 Exam: Pre-Anes Outpt Exam: clear to auscultation bilaterally Additional Exam Findings (including area of procedure): Home oxygen 4L Cardiac Studies: Echocardiogram 03/16/23
[2023-05-23] MEDS: ceFAZolin 2,000 MG in sodium chloride 0.9% (plus) 50 ML 100 MG IV (10:53)
[2023-05-23] MEDS: lidocaine-epi 2% 20 mL INJ INJECTION (12:00)
--- NOTE | 2023-05-23 13:00 | P.OP_ITS ---
Operative Report Date of procedure: May 23, 2023 Pre-op diagnosis: Symptomatic cholelithiasis Post-op diagnosis: Symptomatic cholelithiasis, extensive pericholecystic scarring Procedure done: Laparoscopic subtotal cholecystectomy Implants: Surgicel x2 Specimens removed/disposition: Gallbladder fundus and stones Surgeon: Bro Roldan DO Anesthesia: General Estimated blood loss (mL): 250 Complications: None apparent Brief History: This a very pleasant 73-year-old female who had multiple episodes of acute cholecystitis that were treated conservatively while she was in the hospital due to her extreme illness and poor functional status. She was optimized as an outpatient and interval cholecystectomy was indicated. Risk and benefits were explained and documented. Procedure: Patient was wheeled into the operative room and placed on the OR table in a supine position. Abdomen was inspected prepped and draped in usual sterile fashion. Time-out was performed and all present were in agreement. A 15 blade scalp was used to make a stab incision in the left upper quadrant and intra- abdominal insufflation was achieved using a Veress needle. After localizing the tissue incisions were made and a 5 millimeter trocar was placed into the umbilicus as well as 2 in the right upper quadrant. A 12 millimeter trocar was placed in the epigastrium. Gallbladder was grasped and elevated. There were very dense and extensive adhesions from the gallbladder to the liver and the omentum and stomach. These were taken down very meticulously with blunt and sharp dissection with Metzenbaum scissors. A very significant amount of time was spent trying to reduce these adhesions to the gallbladder. They were extremely dense and the gallbladder was friable. The gallbladder kept tearing apart and stones were falling out. It was so difficult to dissect out the triangle of Colat, then I made the decision to dissect the gallbladder off of the liver bed from the fundus down. When I got down towards the triangle of Calot I had made the decision to do a subtotal cholecystectomy. The gallbladder was already open and all stones that I could see were removed. 3 PDS Endoloops were then placed around the distal gallbladder, just proximal to the cystic duct. The gallbladder was then ligated distally with Metzenbaum scissors. The gallbladder and gallstones were removed from the abdomen using an Endo-Catch bag through the epigastric incision. The liver bed was inspected and no there was some bleeding from the liver bed which was controlled with electrocautery and 2 pieces of Surgicel. The epigastric incision was then closed using a Juancarlos- Geovanny and 0 Vicryl suture in a [id number] fashion. The abdomen was irrigated and suctioned. All ports removed. Skin was washed and dried. Incisions were closed with 4-0 Monocryl in a subcuticular interrupted fashion. Skin glue was applied. Patient tolerated the procedure well.
[2023-05-23] MEDS: fentaNYL 50 mcg/mL INJ 2mL IVP (13:21)
[2023-05-23] MEDS: HYDROcodone-acetaminophen 10-325 mg Tablet 1 TAB PO (13:57)
--- NOTE | 2023-05-23 15:24 | ANE.PACU2 ---
Inpatient post-anesthesia follow up: Airway intact: Yes Vital signs: Temperature 97.4 F Pulse Rate 61 Respiratory Rate 20 Blood Pressure 109/53 Pulse Oximetry 97 Oxygen Delivery Me thod Nasal Cannula Oxygen Flow Rate 4 Fraction of Inspir ed Oxygen Hydration adequate: Yes Nausea and vomiting: No Pain level: 3 Mental status: Baseline
== END 2023-05-23 14:34 | disposition home or self-care (01) ==
PROVIDERS: PCP Family Medicine; Visit Provider Surgery
PROC: 0FT44ZZ Resection of Gallbladder, Percutaneous Endoscopic Approach (ICD-10-PCS; CPT 47562; principal; 2023-05-23 11:20)
DX: K80.10 Calculus of gallbladder with chronic cholecystitis without obstruction (principal); J44.9 Chronic obstructive pulmonary disease, unspecified; G47.30 Sleep apnea, unspecified; I48.91 Unspecified atrial fibrillation; I10 Essential (primary) hypertension; E11.9 Type 2 diabetes mellitus without complications; E66.01 Morbid (severe) obesity due to excess calories; Z68.41 Body mass index [BMI] 40.0-44.9, adult; Z79.01 Long term (current) use of anticoagulants
CPT/HCPCS: 47562; 36416; 82962; 88304; J0690; J2405; J2704; J3010; J7030

== ENCOUNTER → 2023-06-07 10:30 | Outpatient (BNVA) | payer MEDICARE, OTHER, SELFPAY | PROVIDERS: PCP Family Medicine; Visit Provider Surgery | DX: Z90.49 Acquired absence of other specified parts of digestive tract (principal); Z98.890 Other specified postprocedural states | CPT/HCPCS: 99024 ==

== ENCOUNTER → 2023-06-09 09:19 | Outpatient (BNVA) | payer MEDICARE, OTHER, SELFPAY | PROVIDERS: PCP Family Medicine; Visit Provider Podiatrist Foot & Ankle Surgery | DX: E11.8 Type 2 diabetes mellitus with unspecified complications (principal); L60.3 Nail dystrophy; E11.42 Type 2 diabetes mellitus with diabetic polyneuropathy; Z79.84 Long term (current) use of oral hypoglycemic drugs | CPT/HCPCS: 11721; 20610; J1100; J2795; J3301 ==

== ENCOUNTER 2023-06-16 02:22 | Inpatient (IN) | payer MEDICARE, OTHER, SELFPAY ==
[2023-06-16] VITALS (88 sets, daily range): BP systolic 67–116; BP diastolic 50–85; PULSE 72–119; RESP 16–32; TEMP 35.9–37; O2SAT 78–100; BMI 37.1
--- NOTE | 2023-06-16 02:23 | CTR_ITS ---
PROCEDURE INFORMATION: Exam: CT Abdomen And Pelvis With Contrast Exam date and time: 06/16/2023 3:15 AM Age: 73 years old Clinical indication: Abdominal pain; Localized; Left; Prior surgery; Surgery date: <1 month; Surgery type: Gallbladder; Additional info: Abd pain TECHNIQUE: Imaging protocol: Computed tomography of the abdomen and pelvis with contrast. Radiation optimization: All CT scans at this facility use at least one of these dose optimization techniques: automated exposure control; mA and/or kV adjustment per patient size (includes targeted exams where dose is matched to clinical indication); or iterative reconstruction. Contrast material: OMNI 350; Contrast volume: 100 ml; Contrast route: INTRAVENOUS (IV); REPORTING DATA: Count of CT and Cardiac NM exams in prior 12 months: This patient has received 3 known CTs and 0 known cardiac nuclear medicine studies in the 12 months prior to the current study. COMPARISON: CT ang ches abdpel [id number] 03/16/2023 9:50 PM RADIATION DOSE METRICS: Total DLP (mGy-cm): 1229.83 FINDINGS: Lungs: Emphysematous disease. Liver: The liver is normal in size and contour. Gallbladder and bile ducts: The common bile duct measures up to 10 mm in diameter. Mild intrahepatic biliary prominence/dilatation. Surgical clip noted in the gallbladder fossa. Irregularly-shaped air and fluid collection noted in the gallbladder fossa, with trace surrounding inflammatory changes, measuring approximately 4.5 x 3.2 x 2.9 cm. Pancreas: The pancreas appears normal. Spleen: Small splenule noted. The spleen appears unremarkable. Adrenal glands: The adrenals appear normal. Kidneys and ureters: Simple appearing, fluid density cysts noted in the kidneys bilaterally. The kidneys enhance symmetrically and empty into non-dilated ureters. Stomach and bowel: Mild circumferential wall thickening of the duodenum likely related to adjacent inflammatory changes in the gallbladder fossa. Cylindrical possible dislodged stent noted in the sigmoid colon in the right lower quadrant (axial series 3, image 58). The large bowel loops are not abnormally dilated. Colonic diverticulosis without signs of acute diverticulitis. Appendix: No signs of appendicitis. Intraperitoneal space: No ascites. Vasculature: The aorta is nonaneurysmal. The IVC appears normal. Lymph nodes: Suspicious right inguinal lymphadenopathy, measuring up to 2.5 cm in the short axis. Urinary bladder: The urinary bladder is not well distended, therefore not well evaluated. Reproductive: Questionable masslike enlargement along the right side of the vaginal introitus (axial series 3, image 99), measuring 3.0 x 2.1 cm in the axial plane. Bones/joints: Right total hip arthroplasty noted creating artifact in the pelvis. Multilevel degenerative changes in the spine. Soft tissues: Large mixed density likely hematoma in the left anterior abdominal wall measuring 30 x [address]/CT abdomen pelvis w con* [id number] IMPRESSION: 1. Surgical clip noted in the gallbladder fossa. Irregularly-shaped air and fluid collection noted in the gallbladder fossa, with trace surrounding inflammatory changes, concerning for possible abscess measuring approximately 4.5 x 3.2 x 2.9 cm. Recommend clinical correlation. 2. Large mixed density likely hematoma in the left anterior abdominal wall measuring 30 x 15 x 10 cm. 3. Suspicious right inguinal lymphadenopathy, measuring up to 2.5 cm in the short axis. 4. Questionable masslike enlargement along the right side of the vaginal introitus (axial series 3, image 99), measuring 3.0 x 2.1 cm in the axial plane. COMMENTS: 1. Consistent with the [employer]'s Incidental Findings Committee white paper (J Am Isael Radiol 2018): Any incidental renal lesion less than 1 cm or classified as too small to characterize, or any incidental cystic renal lesion characterized as simple-appearing, is likely benign. No follow-up imaging is recommended for these lesions per consensus recommendations based on imaging criteria. 2. Emphysematous disease. In the absence of a history of cancer, recommend yearly CT chest screening.
--- NOTE | 2023-06-16 02:33 | ED_ITS ---
HPI - Abdominal Pain General: Chief Complaint: Abdominal Pain Stated Complaint: abd pain Time Seen by Provider: 06/16/23 02:22 Source: patient and EMS Mode of arrival: EMS Limitations: no limitations History of Present Illness: 73-year-old female states that she has had abdominal pain overnight. States her pain is in her left upper quadrant sharp in nature she rates pain a 6 out of 10 currently denies any vomiting. She did have a cholecystectomy roughly 3 weeks ago states she had no pain until last night though. Associated Symptoms: Denies chills, diarrhea, dysuria, fever(s), nausea and vomiting Review of Systems Const: Denies: fever(s), chills, body aches or change in appetite Eyes: Denies: blurry vision or eye discomfort ENMT: Denies: throat pain or dental pain Card: Denies: chest pain Resp: Denies: dyspnea GI: Reports: abdominal pain; Denies: nausea, vomiting or diarrhea : Denies: dysuria Musc: Denies: neck pain or back pain Skin/Breast: Denies: rash Neuro: Denies: headache(s) PFSH ED PFSH: Medical History A-fib Diagnosed in [address] Sears/Dr. Gonzales Anticoagulation adequate with anticoagulant therapy Xarelto COPD (chronic obstructive pulmonary disease) sees Dr. Turner. Diabetes Diagnosed in 2012 and is managed by PMD Essential hypertension Diagnosed in 2004 and is on medication managed by PMD Gout Diagnosed in 2010 No pertinent past medical history Denies seizures, DVT/PE PCP: Dr. Anthony Osteoarthritis of knees, bilateral Osteoarthritis of right hip Oxygen dependent Since 1999. Psoriasis Diagnosed in 2011--not on any medication--sees Dr. Michael Sleep apnea Surgical History S/P appendectomy Performed [place] [address] Malik at [facility] in [place], [place] S/P carpal tunnel release Carpal tunnel release on the right side, performed in [address] Moody at [place], [place] Carpal tunnel release on the left side, performed in [address] Medina at [place], [place] S/P cataract surgery Removal of cataract from the left eye in February [address] Ruby in [place], [place] Removal of cataract from the right eye in April [address] Ruby in [place], [place] S/P dilation and curettage Performed in [address] Jones at [place], [place] S/P excision of lipoma Excision of Lipoma from the breast, performed in [address] Shelton at [facility] in [place], [place] Excision of Lipoma from the left breast, performed 11/22/[address] Agrawal at [facility] in [place], [place] S/P hysterectomy Vaginal procedure---thinks that her ovaries were removed---performed in February [address] Jones at [place], [place] S/P partial thyroidectomy Performed in [address] Shelton at [place], [place] S/P thoracotomy Performed in 2001 S/P tonsillectomy Performed in [address] Malik at [facility] in [place], [place] S/P trigger finger release Bilateral, performed in [address] Chaney at [place], [place] S/P tubal ligation Laparoscopic procedure---performed in [address] Malik at [facility] in [place], [place] Status post laparoscopic cholecystectomy Status post lumbar surgery Lumbar surgery at L3/L4, performed in 1975 at [facility] Status post total hip replacement, right Right side---performed 07/08/[address] Keith at [facility] in [place], [place] Family History Father Diabetes Heart disease Sister Heart disease Breast cancer diagnosed in her 40s Denies family history of Colon cancer Ovarian cancer Hyperlipidemia Hypertension Uterine cancer Thyroid disease Stroke Social History Smoking and tobacco/nicotine status: never used tobacco/nicotine Substance/Drug Use: never Do you think of yourself as: Straight/Heterosexual Physical Exam Const: COMMON NORMALS: no acute distress, patient oriented x3 and healthy appearing HENMT: COMMON NORMALS: normocephalic and atraumatic HEAD & SCALP: normocephalic and atraumatic Neck/C-Spine: COMMON NORMALS: full ROM and supple Chest: COMMONS NORMALS: normal inspection of the chest and normal palpation of entire chest wall Resp: COMMON NORMALS: normal respiratory effort, No retractions, No use of accessory muscles and clear to auscultation bilaterally AUSCULTATION: clear to auscultation bilaterally Cardio: COMMON NORMALS: regular rate, regular rhythm and No murmurs present (Cardio) RATE: regular rate RHYTHM: regular rhythm GI: COMMON NORMALS: Normal to inspection, nondistended, normoactive bowel sounds present, Soft to palpation and no masses PALPATION: Yes Soft to palpation OTHER: Tenderness over left upper quadrant of abdomen Extremity: COMMON NORMALS: normal to inspection and full ROM Neuro: COMMON NORMALS: patient oriented x3, moves all extremities and no focal motor deficits Psych: COMMON NORMALS: mental status grossly normal, Normal thought process present and cooperative THOUGHT PROCESS: Normal thought process present Skin: COMMON NORMALS: no rashes or lesions noted and no wounds GENERAL SKIN EXAM: no rashes or lesions noted Course Vital Signs: Vital signs: Vital Signs Temperature 97.6 F 06/16/23 02:22 Pulse Rate 84 06/16/23 04:39 Respiratory Rate 18 06/16/23 04:00 Blood Pressure 116/71 06/16/23 04:39 Pulse Oximetry 100 06/16/23 04:39 Oxygen Delivery Me thod Nasal Cannula 06/16/23 04:39 Oxygen Flow Rate 5 06/16/23 04:39 MDM - Abdominal Pain Medical Decision Making Patient presents here with abdominal pain lower left side likely from a large abdominal wall hematoma she does have some mild anemia likely from the hematoma we will transfuse her 2 units that she does have mild hypotension as well CT edilma ws possible abscess around the gallbladder or could be gallbladder remnant I have spoke to Dr. Roldan done her surgery was also consulted is going to see her while she is admitted Medical Records I reviewed the patient's medical records. Lab Data I reviewed the patient's lab results. 06/16/23 02:30 06/16/23 02:30 Labs/Radiology: Radiology Impressions Abdomen/Pelvis CT 06/16/23 02:23 IMPRESSION: 1. Surgical clip noted in the gallbladder fossa. Irregularly-shaped air and fluid collection noted in the gallbladder fossa, with trace surrounding inflammatory changes, concerning for possible abscess measuring approximately 4.5 x 3.2 x 2.9 cm. Recommend clinical correlation. 2. Large mixed density likely hematoma in the left anterior abdominal wall measuring 30 x 15 x 10 cm. 3. Suspicious right inguinal lymphadenopathy, measuring up to 2.5 cm in the short axis. 4. Questionable masslike enlargement along the right side of the vaginal introitus (axial series 3, image 99), measuring 3.0 x 2.1 cm in the axial plane. COMMENTS: 1. Consistent with the [employer]'s Incidental Findings Committee white paper (J Am Isael Radiol 2018): Any incidental renal lesion less than 1 cm or classified as too small to characterize, or any incidental cystic renal lesion characterized as simple-appearing, is likely benign. No follow-up imaging is recommended for these lesions per consensus recommendations based on imaging criteria. 2. Emphysematous disease. In the absence of a history of cancer, recommend yearly CT chest screening. Laboratory Results WBC 10.55 10^3/uL (3.29-11.43) 06/16/23 02:30 RBC 2.99 10^6/uL (3.85-5.65) L 06/16/23 02:30 Hgb 7.70 g/dL (11.27-16.99) L 06/16/23 02:30 Hct 27.6 % (36-47) L 06/16/23 02:30 MCV 92.3 fl (85-98) 06/16/23 02:30 MCH 25.8 pg (27-33) L 06/16/23 02:30 MCHC 27.9 g/dL (30-55) L 06/16/23 02:30 RDW 16.2 % (12.1-15.1) H 06/16/23 02:30 Plt Count 353 10^3/cmm (157-399) 06/16/23 02:30 MPV 8.7 fL (7.4-10.4) 06/16/23 02:30 Neut % (Auto) 76.8 % 06/16/23 02:30 Lymph % (Auto) 9.6 % 06/16/23 02:30 Banks % (Auto) 9.2 % 06/16/23 02:30 Eos % (Auto) 2.7 % 06/16/23 02:30 Baso % (Auto) 0.6 % 06/16/23 02:30 Neut # (Auto) 8.11 10^3/uL (1.8-7.7) H 06/16/23 02:30 Lymph # (Auto) 1.0 10^3/uL (0.8-4.8) 06/16/23 02:30 Banks # (Auto) 1.0 10^3/uL (0.2-0.9) H 06/16/23 02:30 Eos # (Auto) 0.3 10^3/uL (0.0-0.8) 06/16/23 02:30 Baso # (Auto) 0.1 10^3/uL (0.0-0.1) 06/16/23 02:30 Nucleated RBC % (auto) 0 % 06/16/23 02:30 Nucleated RBCs # 0.0 /100WBC 06/16/23 02:30 PT 14.50 SECONDS (12.1-14.9) 06/16/23 02:30 INR 1.09 (0.8-1.2) 06/16/23 02:30 Sodium 140 mmol/L (136-145) 06/16/23 02:30 Potassium 4.2 mmol/L (3.5-5.1) 06/16/23 02:30 Chloride 103 mmol/L (98-107) 06/16/23 02:30 Carbon Dioxide 31 mmol/L (22-29) H 06/16/23 02:30 Anion Gap 10.2 (5-19) 06/16/23 02:30 BUN 17 mg/dL (8-23) 06/16/23 02:30 Creatinine 0.7 mg/dL (0.5-0.9) 06/16/23 02:30 GFR Calculation Not Reportable 06/16/23 02:30 Glucose 163 mg/dL (65-115) H 06/16/23 02:30 Calculated Osmolality 295 mOsm/kg (285-295) 06/16/23 02:30 Lactic Acid 1.0 mmol/L (0.5-2.2) 06/16/23 02:30 Calcium 8.5 mg/dL (8.5-10.5) 06/16/23 02:30 Total Bilirubin 0.2 mg/dL (0.15-1.2) 06/16/23 02:30 AST 16 U/L (0-32) 06/16/23 02:30 ALT 43 U/L (0-33) H 06/16/23 02:30 Alkaline Phosphatase 96 U/L (35-105) 06/16/23 02:30 Total Protein 5.3 g/dL (6.6-8.7) L 06/16/23 02:30 Albumin 2.7 g/dL (3.5-5.2) L 06/16/23 02:30 Globulin 2.6 g/dL (1.3-4.6) 06/16/23 02:30 Lipase 61 U/L (13-60) H 06/16/23 02:30 Urine Color Yellow (Yellow) 06/16/23 04:03 Urine Appearance Hazy (CLEAR) A 06/16/23 04:03 Urine pH 5 (5-7) 06/16/23 04:03 Ur Specific [place] 1.020 (1.005-1.030) 06/16/23 04:03 Urine Protein 1+ (Negative) H 06/16/23 04:03 Urine Glucose (UA) Norm (Normal) 06/16/23 04:03 Urine Ketones Negative (Negative) 06/16/23 04:03 Urine Blood Neg (Negative) 06/16/23 04:03 Urine Nitrate Negative (Negative) 06/16/23 04:03 Urine Bilirubin 1+ (Negative) H 06/16/23 04:03 Urine Urobilinogen 1 mg/dL (Negative) H 06/16/23 04:03 Ur Leukocyte Esterase Trace (Negative) H 06/16/23 04:03 Urine RBC None /hpf (0-2) 06/16/23 04:03 Urine WBC 10-15 /hpf (0-5) H 06/16/23 04:03 Ur Squamous Epith Cells 0-4 /hpf (0-5) H 06/16/23 04:03 Ur Transition Epith Cell 5-10 /hpf 06/16/23 04:03 Amorphous Sediment Not Reportable 06/16/23 04:03 Urine Bacteria 3+ /hpf (NONE) H 06/16/23 04:03 Hyaline Casts 0-4 /lpf H 06/16/23 04:03 Urine Mucus 2+ /hpf 06/16/23 04:03 All radiology interpretation(s) finalized by discharge Discharge Plan Discharge Patient Disposition: Admitted As Inpatient Clinical Impression: Abdominal wall hematoma, Anemia Condition: Stable Prescriptions: No Action potassium chloride 10 mEq capsule, extended release 10 meq PO BID allopurinol 100 mg tablet 100 mg PO QAM Xarelto 20 mg tablet 20 mg PO BEDTIME Hold Instructions: Resume on 05/26/23. metformin 500 mg tablet 500 mg PO QAM fluoxetine 20 mg capsule 20 mg PO QAM albuterol sulfate 90 mcg/actuation HFA aerosol inhaler 2 puff INHALATION Q6H PRN (Reason: Shortness Of Breath) (DME) custom molded accommodative orthotic See Rx Instructions .ROUTE .MEDSUPPLY Qty: 1 0RF Rx Instructions: As directed albuterol sulfate 2.5 mg /3 mL (0.083 %) solution for nebulization 2.5 mg INHALATION Q4H PRN (Reason: Shortness Of Breath) gabapentin 100 mg capsule 100 mg PO BEDTIME amiodarone 200 mg tablet 200 mg PO DAILY Qty: 90 1RF (DME) oxygen-air delivery systems Device See Rx Instructions .Route Rx Instructions: 4 Liters per [place] (DME) Diabetic Shoes with 3 pairs of inserts See Rx Instructions .Route .MEDSUPPLY Qty: 1 0RF Rx Instructions: As directed by HOME [employer] Aerosphere 160-9-4.8 mcg/actuation HFA aerosol inhaler 2 inh inhalation BID Qty: 10.7 3RF multivitamin Tablet 1 tab PO QAM tolterodine 2 mg capsule,extended release 24hr 2 mg PO QAM diltiazem HCl 180 mg capsule,extended release 24hr 180 mg PO QAM omeprazole 40 mg capsule,delayed release(DR/EC) 40 mg PO BID hydrocodone-acetaminophen 10-325 mg tablet 1 tab PO Q6H PRN (Reason: pain) Qty: 20 0RF Rx Instructions: May take half of a tab at a time ondansetron 4 mg tablet,disintegrating 4 mg PO Q6H PRN (Reason: nausea and vomiting) Qty: 14 0RF Lasix 20 mg tablet 40 mg PO DAILY Referrals: Sylvia Anthony MD [Primary Care Provider] - Coding Level of Care Code ED Craniologist for Belkys Herrera
[2023-06-16 02:35] LABS: Basophils # 0.1 10^3/uL (0.0-0.1); Basophils % 0.6 %; Eosinophils # 0.3 10^3/uL (0.0-0.8); Eosinophils % 2.7 %; Hematocrit 27.6 % (36-47); Lymphocytes % 9.6 %; Mean Corpuscular HGB Conc 27.9 g/dL (30-55); Mean Corpuscular Hemoglobin 25.8 pg (27-33); Mean Corpuscular Volume 92.3 fl (85-98); Mean Platelet Volume 8.7 fL (7.4-10.4); Monocytes % 9.2 %; Neutrophils # 8.11 10^3/uL (1.8-7.7); Neutrophils % 76.8 %; Nucleated Red Blood Cells % 0 %; Platelet Count 353 10^3/cmm (157-399); Red Blood Count 2.99 10^6/uL (3.85-5.65); Red Cell Distribution Width 16.2 % (12.1-15.1); White Blood Count 10.55 10^3/uL (3.29-11.43)
[2023-06-16] MEDS: sodium chloride 0.9% 1,000 ML 999 ML IV (02:35)
[2023-06-16 02:52] LABS: Alanine Aminotransferase 43 U/L (0-33); Albumin Level 2.7 g/dL (3.5-5.2); Alkaline Phosphatase 96 U/L (35-105); Anion Gap 10.2 (5-19); Aspartate Amino Transferase 16 U/L (0-32); Blood Urea Nitrogen 17 mg/dL (8-23); Calcium 8.5 mg/dL (8.5-10.5); Carbon Dioxide 31 mmol/L (22-29); Chloride 103 mmol/L (98-107); Globulin 2.6 g/dL (1.3-4.6); Glucose 163 mg/dL (65-115); Lipase 61 U/L (13-60); Osmolality Calculated 295 mOsm/kg (285-295); Potassium 4.2 mmol/L (3.5-5.1); Sodium 140 mmol/L (136-145); Total Bilirubin 0.2 mg/dL (0.15-1.2); Total Protein 5.3 g/dL (6.6-8.7)
[2023-06-16 02:56] LABS: INR 1.09 (0.8-1.2)
[2023-06-16] MEDS: iohexol 350 mg/mL 500 mL Btl (per mL) IV (03:26)
[2023-06-16 04:20] LABS: Urine Appearance Hazy (CLEAR); Urine Color Yellow (Yellow); pH Urine 5 (5-7)
[2023-06-16 04:21] LABS: Bilirubin Urine 1+ (Negative); Blood Urine Neg (Negative); Glucose Urine UA Norm (Normal); Ketones Urine Negative (Negative); Nitrate Urine Negative (Negative); Urobilinogen Urine 1 mg/dL (Negative)
[2023-06-16 04:22] LABS: Add Urine Microscopic? YES; Leukocyte Esterase Urine Trace (Negative); Protein Urine 1+ (Negative)
[2023-06-16 04:23] LABS: Add Urine Culture? Yes; Bacteria Urine 3+ /hpf; Hyaline Casts Urine 0-4 /lpf; Mucus Urine 2+ /hpf; Squamous Epithelial Cell Urine 0-4 /hpf (0-5)
[2023-06-16] MEDS: piperacillin-tazobactam 3.375 GM in sodium chloride 0.9% (plus) 50 ML IV (05:02)
[2023-06-16] MEDS: morphine 4 mg/mL SDV 1 mL IVP (05:02)
--- NOTE | 2023-06-16 05:42 | P.HP_ITS ---
Providers/Chief Complaint Admitting Physician: Lucila Ralph MD Primary Care Provider: Sylvia Anthony MD Chief Complaint: abd pain History of Present Illness Arielle Cooper is a 73 year old female morbidly obese type 2 diabetes atrial fibrillation on Xarelto COPD on home oxygen therapy at 4 L nasal cannula obstructive sleep apnea on BiPAP at night congestive heart failure cerebrovascular accident presented with complaint of sudden severe abdominal pain last night. As per the patient she was well until bedtime, but when she woke up around 1.30 this morning she had severe abdominal pain and was unable to move out of bed. She describes abdominal pain as 10 out of 10, severe aggravated by movement no relieving factors and not associated with nausea vomiting or diarrhea. There is no history of fever cough cold chest pain or urinary complaints On further questioning she reports she had lifted some boxes yesterday during the day. No history of injury or fall. She has history of recent hospitalization for acute cholecystitis s/p cholecystectomy 4 weeks ago. Review of Systems Narrative: As per HPI Medications/Allergies Home Medications Medication Instructions Recorded Confirmed Last Taken Type allopurinol 100 mg tablet 100 mg PO QAM 10/12/19 06/16/23 06/15/23 History metformin 500 mg tablet 500 mg PO QAM 10/12/19 06/16/23 06/15/23 History potassium chloride 10 mEq 10 meq PO BID 10/12/19 06/16/23 06/15/23 History capsule,extended release rivaroxaban 20 mg tablet (Xarelto) 20 mg PO BEDTIME 10/12/19 06/16/23 06/15/23 History albuterol sulfate 90 mcg/actuation 2 puff inhalation Q6H PRN 05/09/20 06/16/23 05/23/23 07:00 History aerosol inhaler Shortness Of Breath albuterol sulfate 2.5 mg/3 mL 2.5 mg inhalation Q4H PRN 06/17/20 06/16/23 05/22/23 History (0.083 %) solution for nebulization Shortness Of Breath fluoxetine 20 mg capsule 20 mg PO QAM 12/29/20 06/16/23 06/15/23 History custom molded accommodative #1 ea 04/02/21 06/09/23 Unknown Rx orthotic gabapentin 100 mg capsule 100 mg PO BEDTIME 08/20/21 06/16/2306/15/23 History oxygen-air delivery systems 01/27/22 06/09/23 Unknown History Diabetic Shoes with 3 pairs of #1 ea 08/10/22 06/09/23 Unknown Rx inserts budesonide 160 mcg-glycopyr 9 2 inh inhalation BID #10.7 grams 02/21/23 06/09/23 05/23/23 08:30 Rx mcg-formot 4.8 mcg/actuation HFA inhaler ([employer]) diltiazem HCl 180 mg 180 mg PO QAM 03/17/23 06/16/23 06/15/23 History capsule,extended release 24 hr multivitamin 1 tab PO QAM 03/17/23 06/16/23 06/15/23 History omeprazole 40 mg capsule,delayed 40 mg PO BID 03/17/23 06/16/23 06/15/23 History release tolterodine 2 mg capsule,extended 2 mg PO QAM 03/17/23 06/16/23 06/15/23 History release 24 hr ondansetron 4 mg disintegrating 4 mg PO Q6H PRN nausea and 05/16/23 06/09/23 06/15/23 Rx tablet vomiting #14 tabs amiodarone 200 mg tablet 200 mg PO DAILY #90 tabs 05/19/23 06/16/23 06/15/23 Rx hydrocodone 10 mg-acetaminophen 1 tab PO Q6H PRN pain #20 tabs 05/23/23 06/09/23 Unknown Rx 325 mg tablet furosemide 20 mg tablet (Lasix) 40 mg PO DAILY 06/16/23 06/16/23 06/15/23 History Allergies Allergy/AdvReac Type Severity Reaction Status Date / Time adhesive tape Allergy ALGY-Hives Verified 06/16/23 02:40 PFSH Acute PFSH: Medical History A-fib Diagnosed in [address] Sears/Dr. Gonzales Anticoagulation adequate with anticoagulant therapy Xarelto COPD (chronic obstructive pulmonary disease) sees Dr. Turner. Diabetes Diagnosed in 2012 and is managed by PMD Essential hypertension Diagnosed in 2004 and is on medication managed by PMD Gout Diagnosed in 2010 No pertinent past medical history Denies seizures, DVT/PE PCP: Dr. Anthony Osteoarthritis of knees, bilateral Osteoarthritis of right hip Oxygen dependent Since 1999. Psoriasis Diagnosed in 2011--not on any medication--sees Dr. Michael Sleep apnea Surgical History S/P appendectomy Performed [place] [address] Malik at [facility] in [place], [place] S/P carpal tunnel release Carpal tunnel release on the right side, performed [place] [address] Moody at [facility], [place] Carpal tunnel release on the left side, performed in [address] Medina at [place], [place] S/P cataract surgery Removal of cataract from the left eye in February [address] Ruby in [place], [place] Removal of cataract from the right eye in April [address] Ruby in [place], [place] S/P dilation and curettage Performed [place] [address] Jones at [place], [place] S/P excision of lipoma Excision of Lipoma from the breast, performed in [address] Shelton at [facility] in [place], [place] Excision of Lipoma from the left breast, performed 11/22/[address] Agrawal at [facility] in [place], [place] S/P hysterectomy Vaginal procedure---thinks that her ovaries were removed---performed in February [address] Jones at [place], [place] S/P partial thyroidectomy Performed in [address] Shelton at [facility] in [place], [place] S/P thoracotomy Performed in 2001 S/P tonsillectomy Performed in [address] Malik at [facility] in [place], [place] S/P trigger finger release Bilateral, performed in [address] Chaney at [place], [place] S/P tubal ligation Laparoscopic procedure---performed in [address] Malik at [facility] in [place], [place] Status post laparoscopic cholecystectomy Status post lumbar surgery Lumbar surgery at L3/L4, performed in 1975 at [facility] Status post total hip replacement, right Right side---performed 07/08/[address] Keith at [facility] in [place], [place] Family History Father Diabetes Heart disease Sister Heart disease Breast cancer diagnosed in her 40s Denies family history of Colon cancer Ovarian cancer Hyperlipidemia Hypertension Uterine cancer Thyroid disease Stroke Social History Smoking and tobacco/nicotine status: never used tobacco/nicotine Substance/Drug Use: never Do you think of yourself as: Straight/Heterosexual Vitals/I&O/Wt Last Vital Signs Temp 97.6 F 06/16/23 02:22 Pulse 84 06/16/23 04:39 Resp 20 H 06/16/23 05:02 BP 116/71 06/16/23 04:39 Pulse Ox 100 06/16/23 04:39 O2 Del Method Nasal Cannula 06/16/23 04:39 O2 Flow Rate 5 06/16/23 04:39 06/15/23 06/15/23 06/16/23 14:59 22:59 06:59 Intake Total 1000 / 1000 Balance 1000 / 1000 Weight last 48 hrs Weight 104.326 kg Physical Exam Narrative: She is alert awake oriented x3 in moderate distress due to abdominal pain and restriction of movement, she is morbidly obese Chest clear to auscultation bilaterally, on 4 L nasal cannula Cardiovascular normal heart sounds no murmurs Abdomen soft tender in bilateral lumbar areas, also poorly defined mass approximately 7 x 7 cm palpable on the left lumbar area which is tender and soft Extremities bilateral 1+ pitting lower extremity edema present Data 06/16/23 02:30 06/16/23 02:30 CT Abd/Pel: Radiologist's impression: FINDINGS: Lungs: Emphysematous disease. Liver: The liver is normal in size and contour.? Gallbladder and bile ducts: The common bile duct measures up to 10 mm in diameter. Mild intrahepatic biliary prominence/dilatation. Surgical clip noted in the gallbladder fossa. Irregularly-shaped air and fluid collection noted in the gallbladder fossa, with trace surrounding inflammatory changes, measuring approximately 4.5 x 3.2 x 2.9 cm. Pancreas: The pancreas appears normal.? Spleen: Small splenule noted. The spleen appears unremarkable. Adrenal glands: The adrenals appear normal. Kidneys and ureters: Simple appearing, fluid density cysts noted in the kidneys bilaterally. The kidneys enhance symmetrically and empty into non-dilated ureters. Stomach and bowel: Mild circumferential wall thickening of the duodenum likely related to adjacent inflammatory changes in the gallbladder fossa. Cylindrical possible dislodged stent noted in the sigmoid colon in the right lower quadrant (axial series 3, image 58). The large bowel loops are not abnormally dilated. Colonic diverticulosis without signs of acute diverticulitis. Appendix: No signs of appendicitis. Intraperitoneal space: No ascites.? Vasculature: The aorta is nonaneurysmal. The IVC appears normal.? Lymph nodes: Suspicious right inguinal lymphadenopathy, measuring up to 2.5 cm in the short axis. Urinary bladder: The urinary bladder is not well distended, therefore not well evaluated. Reproductive: Questionable masslike enlargement along the right side of the vaginal introitus (axial series 3, image 99), measuring 3.0 x 2.1 cm in the axial plane. Bones/joints: Right total hip arthroplasty noted creating artifact in the pelvis. Multilevel degenerative changes in the spine. Soft tissues: Large mixed density likely hematoma in the left anterior abdominal wall measuring 30 x 15 x 10 cm. A&P Assessment and plan (1) Abdominal wall hematoma: (2) Anemia: (3) Chronic anticoagulation: Plan 73 year old female morbidly obese type 2 diabetes atrial fibrillation on Xarelto COPD on home oxygen therapy at 4 L nasal cannula obstructive sleep apnea on BiPAP at night congestive heart failure cerebrovascular accident presented with complaint of sudden severe abdominal pain last night and found to have a hemog lobin of 7.7 from 10.4[4 weeks ago], CT abdomen pelvis consistent with left lumbar area and right side of vaginal introitus hematoma likely secondary to spontaneous bleeding being on anticoagulation.[CT findings new as compared to CT from 03/20] Anterior abdominal wall and vaginal hematoma Will monitor for now Discontinues p.o. Xarelto Given drop in hemoglobin and significant hematoma, will transfuse 2 units PRBC. Check CBC posttransfusion. Ice pack application as needed to hematoma. Patient known to surgery Dr. Roldan, will inform him in a.m. Also has questionable fluid and swelling in the gallbladder area likely postop changes, but cannot rule out infection. Will discuss with surgery before continuing antibiotics. Resume home medications IV Pepcid 20 mg twice a day for stress ulcer prophylaxis ICS for DVT prophylaxis Cardiac diet She is full code for now as per discussion with patient and her daughter at the bedside. Attestations Medical Necessity Statement*: She needs less than 2 days of hospitalization. She is here for anterior abdominal wall hematoma to be treated conservatively, plan to transfuse 2 units of PRBC given drop in hemoglobin. She also needs surgery consult Time Spent in Patient Care: 30 minutes Coding Level of Care Code Acute Code for Chg Fwd Diagnoses Abdominal wall hematoma S30.1XXA Anemia D64.9 Chronic anticoagulation Z79.01 Time Spent (min) 30
[2023-06-16] MEDS: ipratropium-albuterol 3 mL Neb INHALATION ×4 (07:33→20:20)
[2023-06-16] MEDS: budesonide 0.5 mg/2 mL Neb INHALATION ×2 (07:33→20:20)
[2023-06-16] MEDS: morphine 4 mg/mL SDV 1 mL 2 MG IVP ×2 (07:54→16:10)
[2023-06-16] MEDS: famotidine 20 mg/2 mL INJ IVP (10:42)
[2023-06-16] MEDS: amiodarone 200 mg Tablet PO (10:43)
[2023-06-16] MEDS: potassium chloride ER 10 mEq Tablet PO ×2 (10:43→18:07)
--- NOTE | 2023-06-16 13:17 | PM.CONSULT ---
Providers/Reason For Consult Consulting Physician/Specialty*: Dr. Bro Roldan, DO/General surgery Reason for Consult*: Rectus sheath hematoma Attending Physician: Kana Wills MD Primary Care Provider: Sylvia Anthony MD History of Present Illness History of Present Illness Arielle Cooper is a 73 year old female who underwent a laparoscopic cholecystectomy 2-1/2 weeks ago and then came into the ER last night with a 1 day history of abdominal pain and swelling. She reports that she was moving boxes earlier in the day and then noticed swelling and sharp constant pain in her left hemiabdomen. The pain does not radiate. Palpation and movement make the pain worse. Nothing makes pain better. Denies any nausea, emesis, diarrhea, constipation, hematochezia and/or melena. She takes rivaroxaban at home. CT the abdomen pelvis shows a left-sided rectus sheath hematoma Review of Systems General: Reports: 10 or more systems reviewed and unremarkable except in HPI and below Medications/Allergies Home Medications Medication Instructions Recorded Confirmed Last Taken Type allopurinol 100 mg tablet 100 mg PO QAM 10/12/19 06/16/23 06/15/23 History metformin 500 mg tablet 500 mg PO QAM 10/12/19 06/16/23 06/15/23 History potassium chloride 10 mEq 10 meq PO BID 10/12/19 06/16/23 06/15/23 History capsule,extended release rivaroxaban 20 mg tablet (Xarelto) 20 mg PO BEDTIME 10/12/19 06/16/23 06/15/23 History albuterol sulfate 90 mcg/actuation 2 puff inhalation Q6H PRN 05/09/20 06/16/23 05/23/23 07:00 History aerosol inhaler Shortness Of Breath albuterol sulfate 2.5 mg/3 mL 2.5 mg inhalation Q4H PRN 06/17/20 06/16/23 05/22/23 History (0.083 %) solution for nebulization Shortness Of Breath fluoxetine 20 mg capsule 20 mg PO QAM 12/29/20 06/16/23 06/15/23 History custom molded accommodative #1 ea 04/02/21 06/16/23 Unknown Rx orthotic gabapentin 100 mg capsule 100 mg PO BEDTIME 08/20/21 06/16/23 06/15/23 History oxygen-air delivery systems 01/27/22 06/16/23 Unknown History Diabetic Shoes with 3 pairs of #1 ea 08/10/22 06/16/23 Unknown Rx inserts budesonide 160 mcg-glycopyr 9 2 inh inhalation BID #10.7 grams 02/21/23 06/16/23 05/23/23 08:30 Rx mcg-formot 4.8 mcg/actuation HFA inhaler ([employer]) diltiazem HCl 180 mg 180 mg PO QAM 03/17/23 06/16/23 06/15/23 History capsule,extended release 24 hr multivitamin 1 tab PO QAM 03/17/23 06/16/23 06/15/23 History omeprazole 40 mg capsule,delayed 40 mg PO BID 03/17/23 06/16/23 06/15/23 History release tolterodine 2 mg capsule,extended 2 mg PO QAM 03/17/23 06/16/23 06/15/23 History release 24 hr ondansetron 4 mg disintegrating 4 mg PO Q6H PRN nausea and 05/16/23 06/16/23 05/22/23 Rx tablet vomiting #14 tabs amiodarone 200 mg tablet 200 mg PO DAILY #90 tabs 05/19/23 06/16/23 06/15/23 Rx hydrocodone 10 mg-acetaminophen 1 tab PO Q6H PRN pain #20 tabs 05/23/23 06/16/23 Unknown Rx 325 mg tablet furosemide 20 mg tablet (Lasix) 40 mg PO DAILY 06/16/23 06/16/23 06/15/23 History Allergies Allergy/AdvReac Type Severity Reaction Status Date / Time adhesive tape Allergy ALGY-Hives Verified 06/16/23 02:40 Current Medications Generic Name Dose Route Start Last Admin Trade Name Freq PRN Reason Stop Dose Admin Albuterol/Ipratropium 3 ml 06/16/23 08:00 06/16/23 11:16 Ipratropium-Albuterol 3 Ml Neb INHALATION 3 ml QID.RESPIRATORY KELSEY Administration Amiodarone HCl 200 mg 06/16/23 09:00 06/16/23 10:43 Amiodarone 200 Mg Tablet PO 200 mg DAILY KELSEY Administration Budesonide 0.5 mg 06/16/23 08:00 06/16/23 07:33 Budesonide 0.5 Mg/2 Ml Neb INHALATION 0.5 mg BID.RESPIRATORY KELSEY Administration Morphine Sulfate 2 mg 06/16/23 06:09 06/16/23 07:54 Morphine 4 Mg/Ml Sdv 1 Ml IVP 2 mg Q4H PRN Administration SEVERE PAIN Potassium Chloride 10 meq 06/16/23 09:00 06/16/23 10:43 Potassium Chloride Er 10 Meq Tablet PO 10 meq BID KELSEY Administration PFSH Acute PFSH: Medical History A-fib Diagnosed in [address] Sears/Dr. Gonzales Anticoagulation adequate with anticoagulant therapy Xarelto COPD (chronic obstructive pulmonary disease) sees Dr. Turner. Diabetes Diagnosed in 2012 and is managed by PMD Essential hypertension Diagnosed in 2004 and is on medication managed by PMD Gout Diagnosed in 2010 No pertinent past medical history Denies seizures, DVT/PE PCP: Dr. Anthony Osteoarthritis of knees, bilateral Osteoarthritis of right hip Oxygen dependent Since 1999. Psoriasis Diagnosed in 2011--not on any medication--sees Dr. Michael Sleep apnea Surgical History S/P appendectomy Performed [place] [address] [facility] in [place], [place] S/P carpal tunnel release Carpal tunnel release on the right side, performed [place] [address] Moody at [place], [place] Carpal tunnel release on the left side, performed in [address] Medina at [place], [place] S/P cataract surgery Removal of cataract from the left eye in February [address] Ruby in [place], [place] Removal of cataract from the right eye in April [address] Ruby in [place], [place] S/P dilation and curettage Performed [place] [address] Jones at [facility] in [place], [place] S/P excision of lipoma Excision of Lipoma from the breast, performed in [address] Shelton at [facility] in [place], [place] Excision of Lipoma from the left breast, performed 11/22/[address] Agrawal at [facility] in [place], [place] S/P hysterectomy Vaginal procedure---thinks that her ovaries were removed---performed in February [address] Jones at [facility] in [place], [place] S/P partial thyroidectomy Performed in [address] Shelton at [facility] in [place], [place] S/P thoracotomy Performed in 2001 S/P tonsillectomy Performed in [address] Malik at [facility] in [place], [place] S/P trigger finger release Bilateral, performed in [address] Chaney at [place], [place] S/P tubal ligation Laparoscopic procedure---performed in [address] Mal[address] at [facility] in [place], [place] Status post laparoscopic cholecystectomy Status post lumbar surgery Lumbar surgery at L3/L4, performed in 1975 at [facility] Status post total hip replacement, right Right side---performed 07/08/[address] Keith at [facility] in [place], [place] Family History Father Diabetes Heart disease Sister Heart disease Breast cancer diagnosed in her 40s Denies family history of Colon cancer Ovarian cancer Hyperlipidemia Hypertension Uterine cancer Thyroid disease Stroke Social History Smoking and tobacco/nicotine status: never used tobacco/nicotine Substance/Drug Use: never Do you think of yourself as: Straight/Heterosexual Vitals/I&O/Wt Last Vital Signs Temp 97 F L 06/16/23 12:26 Pulse 105 H 06/16/23 12:45 Resp 26 H 06/16/23 12:45 BP 100/69 06/16/23 12:45 Pulse Ox 97 06/16/23 12:26 O2 Del Method Nasal Cannula 06/16/23 12:49 O2 Flow Rate 4 06/16/23 11:52 06/15/23 06/16/23 06/16/23 22:59 06:59 14:59 Intake Total 1050 / 1050 470 / 470 Balance 1050 / 1050 470 / 470 Weight last 48 hrs Weight 230 lb Physical Exam Narrative: General : Patient is well developed , no acute distress, oriented x3 Head : Normal cephalic, a-traumatic. Ears : Pinnae and external canal are normal. Hearing is normal. Eyes : PERRLA, Sclera and injection are normal. No conjunctival discharge. Nose : Mucous membranes are without erythema. Throat : buccal mucosa is normal, gums are without significant recession or hypertrophy. Lungs : Equal chest rise bilaterally, no use of accessory muscles, trachea is midline. Cor : Rate and rhythm are normal. Abdomen : Soft, ND, tender to palpation over the known rectus sheath hematoma on the left, no g/r/m Extremities : No edema, no cyanosis or clubbing, dorsalis pedis pulses are present bilaterally, non-tender to palpation of calves. Upper extremities are normal bilaterally. Back : non-tender to palpation, no CVA tenderness. Neuro : CN II - XII intact, Upper and lower extremities have equal and full strength Data 06/16/23 02:30 06/16/23 02:30 A&P Assessment and plan (1) Rectus sheath hematoma: (2) Anemia: Plan This is a self-limiting condition. Her hemoglobin is down almost 3 from her last admission. No acute surgical intervention. Transfuse as needed. Carbohydrate consistent diet. Medical management per hospitalist. Coding Level of Care Code 18625 Diagnoses Rectus sheath hematoma S30.1XXA Anemia D64.9
--- NOTE | 2023-06-16 15:10 | W.PM.EVENTAC ---
Event Note Event Note: Patient was admitted overnight. H&P and labs appreciated. Examination today patient is getting first unit of blood transfusion with systolic blood pressure ranging in 80s. Patient is drowsy but wakes up to verbal stimulus. Complaining of pain in her belly. Denies any nausea, vomiting, headache. Appreciate blood work and CT abdomen pelvis results. Patient remains tachycardic with heart rate running more than 100, saturating well on 2 L of oxygen supplementation. Problem list: Blood loss anemia Rectus sheath hematoma Chronic anticoagulation with Xarelto Atrial fibrillation Shock in setting of blood loss anemia: Ruled in setting of tachycardia, worsening mental status with drowsiness Keep mean artery pressure 65. If needed will start on Levophed. Complete 2 unit of blood transfusion. After that continue normal saline at 100 cc/h. Switch to Protonix 40 mg twice daily. Hemoglobin and hematocrit to be checked every 6 hourly after blood transfusion. Surgery consulted. Most likely conservative treatment. Hold off on reversing Xarelto for now. Last dose on 06/15 evening. If hemoglobin continues to worsen or patient remains hemodynamically unstable we will discuss about reversing Xarelto as patient would be at a higher risk of stroke given baseline atrial fibrillation. Patient has been made aware. She is Agreeable with current treatment plan. Hold off on any antibiotics for now. Start on blood diet. Continue with oral amiodarone for atrial fibrillation. Hold off on Cardizem given soft blood pressure. Vaughan catheterization. Given significant anemia, soft blood pressures secondary to blood loss anemia from rectus sheath hematoma will transfer patient to ICU for further monitoring. Event Notes Attestations Time Spent in Patient Care: Greater than 35 minutes Other Coding Information Prolonged care (total time indicated above or notated here) Management of hypotension in setting of blood loss anemia from rectus sheath hematoma, blood transfusion, discussion with surgical team, pain management, atrial fibrillation while managing hypotension
[2023-06-16 16:05] LABS: Hematocrit 31.4 % (36-47)
[2023-06-16 16:15] LABS: Vitamin B12 430 pg/mL (232-1245)
[2023-06-16] MEDS: gabapentin 100 mg Capsule PO (20:39)
[2023-06-16 21:01] LABS: Hematocrit 28.6 % (36-47)
[2023-06-17] VITALS (47 sets, daily range): BP systolic 94–122; BP diastolic 52–84; PULSE 76–112; RESP 15–98; TEMP 36.2–36.8; O2SAT 78–99
[2023-06-17 01:56] LABS: Hematocrit 29.4 % (36-47)
[2023-06-17 04:45] LABS: Alanine Aminotransferase 89 U/L (0-33); Albumin Level 2.9 g/dL (3.5-5.2); Alkaline Phosphatase 121 U/L (35-105); Blood Urea Nitrogen 24 mg/dL (8-23); Calcium 8.9 mg/dL (8.5-10.5); Carbon Dioxide 32 mmol/L (22-29); Chloride 98 mmol/L (98-107); Globulin 2.8 g/dL (1.3-4.6); Glucose 157 mg/dL (65-115); Magnesium 2.2 mg/dL (1.7-2.3); Osmolality Calculated 289 mOsm/kg (285-295); Sodium 136 mmol/L (136-145); Total Bilirubin 0.5 mg/dL (0.15-1.2); Total Protein 5.7 g/dL (6.6-8.7)
[2023-06-17 04:46] LABS: Chol HDL Ratio 2.89 mg/dL (0.0-4.40); Cholesterol 133 mg/dL (0-200); HDL Cholesterol 46 mg/dL (60-100); LDL Cholesterol Calculated 67 mg/dL (50-129); Triglycerides 99 mg/dL (0-150); VLDL Cholestrol Calculation 20 mg/dL (0-30)
[2023-06-17 04:49] LABS: Anion Gap 11.4 (5-19); Aspartate Amino Transferase 39 U/L (0-32); Potassium 5.4 mmol/L (3.5-5.1)
[2023-06-17] MEDS: allopurinol 100 mg Tablet PO (05:23)
[2023-06-17] MEDS: fluoxetine 20 mg Capsule PO (05:23)
[2023-06-17] MEDS: multivitamin therapeutic Tablet 1 TAB PO (05:23)
[2023-06-17] MEDS: morphine 4 mg/mL SDV 1 mL 2 MG IVP ×2 (05:30→19:29)
[2023-06-17 05:59] LABS: Basophils # 0.1 10^3/uL (0.0-0.1); Basophils % 0.4 %; Eosinophils # 0.1 10^3/uL (0.0-0.8); Eosinophils % 0.6 %; Hematocrit 27.3 % (36-47); Lymphocytes # 1.5 10^3/uL (0.8-4.8); Mean Corpuscular HGB Conc 30.8 g/dL (30-55); Mean Corpuscular Hemoglobin 27.3 pg (27-33); Mean Corpuscular Volume 88.6 fl (85-98); Mean Platelet Volume 9.2 fL (7.4-10.4); Monocytes # 2.1 10^3/uL (0.2-0.9); Monocytes % 9.6 %; Neutrophils # 17.43 10^3/uL (1.8-7.7); Neutrophils % 81.2 %; Nucleated Red Blood Cells % 0 %; Platelet Count 323 10^3/cmm (157-399); Red Blood Count 3.08 10^6/uL (3.85-5.65); Red Cell Distribution Width 15.9 % (12.1-15.1); White Blood Count 21.46 10^3/uL (3.29-11.43)
[2023-06-17 06:20] LABS: Estmated Average Glucose 97
[2023-06-17 08:00] LABS: Hematocrit 28.4 % (36-47)
[2023-06-17] MEDS: ipratropium-albuterol 3 mL Neb INHALATION ×4 (08:33→19:55)
[2023-06-17] MEDS: budesonide 0.5 mg/2 mL Neb INHALATION ×2 (08:33→19:55)
[2023-06-17] MEDS: pantoprazole 40 mg SDV IVP (09:14)
[2023-06-17] MEDS: amiodarone 200 mg Tablet PO (09:14)
[2023-06-17 11:14] LABS: Glucose Point of Care 182 mg/dL (70-110)
--- NOTE | 2023-06-17 11:38 | PM.PN ---
Subjective Subjective: Patient seen and examined. She reports that her pain has improved but she is not eating very well. She was transfused PRBCs overnight Vitals/I&O/Wt Last Vital Signs Temp 98.1 F 06/16/23 19:00 Pulse 80 06/17/23 09:00 Resp 26 H 06/17/23 09:00 BP 116/67 06/17/23 09:00 Pulse Ox 98 06/17/23 09:00 O2 Del Method Nasal Cannula 06/17/23 08:30 O2 Flow Rate 4 06/17/23 08:30 06/16/23 06/17/23 06/17/23 22:59 06:59 14:59 Intake Total 840 / 1660 240 / 240 Output Total 200 / 200 300 / 500 Balance 640 / 1460 -300 / 1160 240 / 240 Weight last 48 hrs Weight 230 lb Physical Exam Narrative: General: No acute distress, awake alert and oriented x3 Abdomen: Soft, nondistended, tender to palpation over the left rectus abdominis, no rebound or guarding Urinary Catheter Management: Vaughan: Cath Placed During This Visit: yes Reason for Continuing Indwelling Catheter: Accurate Measurement of Urinary Output in Critically Ill Patients Urinary Catheter Date of Insertion: 06/16/23 Urinary Catheter Time of Insertion: 13:39 Data 06/17/23 07:53 06/17/23 02:50 Micro: Microbiology 06/16/23 15:23 Blood Culture - Preliminary Blood SPECIMEN COLLECTED 06/16/23 15:15 Blood Culture - Preliminary Blood SPECIMEN COLLECTED A&P Assessment and plan (1) Rectus sheath hematoma: (2) Anemia: Plan This is a self-limiting condition. Her hemoglobin is down almost 3 from her last admission. No acute surgical intervention. Transfuse as needed. Carbohydrate consistent diet. Medical management per hospitalist. Attestations Medical Necessity Statement*: Per primary Coding Level of Care Code 43789 Diagnoses Rectus sheath hematoma S30.1XXA Anemia D64.9
[2023-06-17] MEDS: sodium chloride 0.9% 1,000 ML 75 ML IV (12:38)
[2023-06-17] MEDS: piperacillin-tazobactam 3.375 GM in sodium chloride 0.9% (plus) 50 ML IV ×2 (12:39→20:28)
[2023-06-17] MEDS: dextrose 50% syringe 50 mL IVP (12:42)
[2023-06-17] MEDS: insulin regular-human 10 UNIT in SYRINGE 1 EACH IVP (12:44)
--- NOTE | 2023-06-17 13:47 | PC.SOCIAL ---
Pg 2 IMM Explained to pt Pg 2 IMM. No questions voiced. Provided pt a copy. Initialed, dated, & timed a copy & placed in chart.
[2023-06-17] MEDS: ondansetron 2 mg/ML SDV 2 mL 4 MG IVP (14:39)
--- NOTE | 2023-06-17 14:41 | PM.PN ---
Subjective Subjective: No acute events overnight. Patient has remained hemodynamically stable and afebrile. Morning seen in ICU. States she feels better. Blood work showing hemoglobin stable at 8.5, leukocytosis with white count of 21,000, CMP showing creatinine of 1.3, potassium of 5.4, AST/ALT of 39/89 Vitals/I&O/Wt Last Vital Signs Temp 98.1 F 06/16/23 19:00 Pulse 79 06/17/23 13:30 Resp 24 H 06/17/23 13:30 BP 115/71 06/17/23 13:30 Pulse Ox 97 06/17/23 13:30 O2 Del Method Nasal Cannula 06/17/23 13:00 O2 Flow Rate 4 06/17/23 13:00 06/16/23 06/17/23 06/17/23 22:59 06:59 14:59 Intake Total 840 / 1660 360.1 / 360.1 Output Total 200 / 200 300 / 500 Balance 640 / 1460 -300 / 1160 360.1 / 360.1 Weight last 48 hrs Weight 104.326 kg Physical Exam Narrative: She is alert awake oriented x3, drowsy in moderate distress due to abdominal pain and restriction of movement, she is morbidly obese Chest clear to auscultation bilaterally, on 4 L nasal cannula Cardiovascular normal heart sounds no murmurs Abdomen soft tender in bilateral lumbar areas, also poorly defined mass approximately 7 x 7 cm palpable on the left lumbar area which is tender and soft Extremities bilateral 1+ pitting lower extremity edema present Urinary Catheter Management: Vaughan: Cath Placed During This Visit: yes Reason for Continuing Indwelling Catheter: Accurate Measurement of Urinary Output in Critically Ill Patients Urinary Catheter Date of Insertion: 06/16/23 Urinary Catheter Time of Insertion: 13:39 Data 06/17/23 07:53 06/17/23 02:50 Micro: Microbiology 06/16/23 04:03 Urine Culture - Preliminary Urine,Clean Catch Gram Negative Rods 06/16/23 15:23 Blood Culture - Preliminary Blood SPECIMEN COLLECTED 06/16/23 15:15 Blood Culture - Preliminary Blood SPECIMEN COLLECTED A&P Assessment and plan (1) Anemia: (2) Rectus sheath hematoma: (3) Chronic anticoagulation: (4) Status post laparoscopic cholecystectomy: (5) A-fib: (6) Sleep apnea: Qualifiers: Sleep apnea type: unspecified type Qualified Code(s): G47.30 - Sleep apnea, unspecified (7) Acute kidney injury: (8) Hyperkalemia: Plan 73 year old female morbidly obese type 2 diabetes atrial fibrillation on Xarelto COPD on home oxygen therapy at 4 L nasal cannula obstructive sleep apnea on BiPAP at night congestive heart failure cerebrovascular accident presented with complaint of sudden severe abdominal pain last night and found to have a hemoglobin of 7.7 from 10.4[4 weeks ago], CT abdomen pelvis consistent with left lumbar area and right side of vaginal introitus hematoma likely secondary to spontaneous bleeding being on anticoagulation.[CT findings new as compared to CT from 03/20] Rectus sheath hematoma: Most likely traumatic in setting of lifting of heavy boxes. Chronic anticoagulation with rivaroxaban. Last dose on 06/15 night. Conservative treatment. Appreciate surgical recommendations. Ice pack. Pain management. Anemia: In setting of rectus sheath hematoma. Post 2 unit of blood transfusion. Hemoglobin so far stable after transfusion around 8.8-8.5. Monitor every 8 hourly for now. Patient is on chronic anticoagulation with Xarelto. We will hold off on reversing the agent for now. Atrial fibrillation: Rate controlled. Continue with home dose of amiodarone. Holding off on Cardizem given soft blood pressures. Holding off on anticoagulation. NEVIN: Most likely in setting of hypotension from hypovolemic shock yesterday. IV fluids with normal saline at 75 cc/h. Medical reconciliation done for nephrotoxic drugs. Monitor BMP daily. Hyperkalemia: Most likely in setting of NEVIN and home dose of potassium. Oral potassium withheld. D50 with 10 units of insulin. Repeat potassium level in afternoon. Continue other chronic home medications. Regular diet. SCDs for DVT prophylaxis, Protonix for PUD prophylaxis. Full code. Attestations Medical Necessity Statement*: Requires further hospitalization for management of anemia in setting of rectus sheath hematoma in a patient on chronic anticoagulation for atrial fibrillation, NEVIN and hyperkalemia Diagnoses Anemia D64.9 Rectus sheath hematoma S30.1XXA Chronic anticoagulation Z79.01 Status post laparoscopic cholecystectomy Z90.49 A-fib I48.91 Sleep apnea G47.30 Sleep apnea type: unspecified type Acute kidney injury N17.9 Hyperkalemia E87.5
[2023-06-17 16:22] LABS: Anion Gap 12.1 (5-19); Blood Urea Nitrogen 28 mg/dL (8-23); Calcium 9.1 mg/dL (8.5-10.5); Carbon Dioxide 29 mmol/L (22-29); Chloride 97 mmol/L (98-107); Creatinine Clr Calc Pharmacy 54.7615; Glucose 120 mg/dL (65-115); Osmolality Calculated 283 mOsm/kg (285-295); Potassium 5.1 mmol/L (3.5-5.1); Sodium 133 mmol/L (136-145)
[2023-06-17] MEDS: gabapentin 100 mg Capsule PO (20:28)
[2023-06-18] VITALS (23 sets, daily range): BP systolic 103–154; BP diastolic 45–110; PULSE 72–93; RESP 16–25; TEMP 36.4–37.3; O2SAT 88–99
[2023-06-18 03:31] LABS: Basophils % 0.2 %; Eosinophils # 0.1 10^3/uL (0.0-0.8); Eosinophils % 0.8 %; Hematocrit 23.4 % (36-47); Lymphocytes # 0.9 10^3/uL (0.8-4.8); Lymphocytes % 7.1 %; Mean Corpuscular HGB Conc 30.3 g/dL (30-55); Mean Corpuscular Hemoglobin 27.1 pg (27-33); Mean Corpuscular Volume 89.3 fl (85-98); Mean Platelet Volume 9.2 fL (7.4-10.4); Monocytes # 1.3 10^3/uL (0.2-0.9); Monocytes % 10.1 %; Neutrophils # 10.08 10^3/uL (1.8-7.7); Neutrophils % 80.8 %; Nucleated Red Blood Cells % 0 %; Platelet Count 254 10^3/cmm (157-399); Red Blood Count 2.62 10^6/uL (3.85-5.65); Red Cell Distribution Width 15.7 % (12.1-15.1); White Blood Count 12.49 10^3/uL (3.29-11.43)
[2023-06-18 03:48] LABS: Chloride 99 mmol/L (98-107); Potassium 5.2 mmol/L (3.5-5.1); Sodium 134 mmol/L (136-145)
[2023-06-18] MEDS: sodium chloride 0.9% 1,000 ML 75 ML IV (03:51)
[2023-06-18 04:17] LABS: Alanine Aminotransferase 48 U/L (0-33); Albumin Level 2.4 g/dL (3.5-5.2); Alkaline Phosphatase 105 U/L (35-105); Anion Gap 9.2 (5-19); Aspartate Amino Transferase 13 U/L (0-32); Blood Urea Nitrogen 23 mg/dL (8-23); Calcium 8.9 mg/dL (8.5-10.5); Carbon Dioxide 31 mmol/L (22-29); Globulin 2.5 g/dL (1.3-4.6); Glucose 120 mg/dL (65-115); Osmolality Calculated 283 mOsm/kg (285-295); Total Bilirubin 0.3 mg/dL (0.15-1.2); Total Protein 4.9 g/dL (6.6-8.7)
[2023-06-18] MEDS: piperacillin-tazobactam 3.375 GM in sodium chloride 0.9% (plus) 50 ML IV ×3 (04:36→21:00)
[2023-06-18] MEDS: morphine 4 mg/mL SDV 1 mL 2 MG IVP ×2 (04:52→21:28)
[2023-06-18] MEDS: fluoxetine 20 mg Capsule PO (05:00)
[2023-06-18] MEDS: multivitamin therapeutic Tablet 1 TAB PO (05:00)
[2023-06-18] MEDS: allopurinol 100 mg Tablet PO (05:00)
[2023-06-18] MEDS: ipratropium-albuterol 3 mL Neb INHALATION ×4 (08:11→21:24)
[2023-06-18] MEDS: budesonide 0.5 mg/2 mL Neb INHALATION ×2 (08:11→21:24)
[2023-06-18] MEDS: amiodarone 200 mg Tablet PO (08:27)
[2023-06-18] MEDS: pantoprazole 40 mg SDV IVP (08:27)
[2023-06-18] MEDS: FUROsemide 10 mg/mL SDV 4mL 40 MG IVP (13:33)
[2023-06-18] MEDS: dextrose 50% syringe 50 mL IVP (13:34)
[2023-06-18] MEDS: insulin regular-human 10 UNIT in SYRINGE 1 EACH IVP (13:36)
--- NOTE | 2023-06-18 16:16 | P.PN_ITS ---
Subjective Subjective: No acute events overnight. Patient has remained hemodynamically stable and afebrile. Received monitor blood transfusion yesterday. Today morning sitting up in chair. A lot more awake and alert. On baseline 4 to [place] supplementation. States feeling stronger. Denies any nausea, vomiting, h eadache. Blood work appreciated for hemoglobin of 7.1, white count improving to 12.4, CMP showing mild hyponatremia 134, hyperkalemia 5.2, creatinine of 1. Patient did have significant infiltration of blood in the arm yesterday leading to subcutaneous hematoma on bilateral arms. Vitals/I&O/Wt Last Vital Signs Temp 99.2 F 06/18/23 15:31 Pulse 81 06/18/23 15:31 Resp 18 06/18/23 15:31 BP 126/77 06/18/23 15:31 Pulse Ox 99 06/18/23 15:31 O2 Del Method Nasal Cannula 06/18/23 15:31 O2 Flow Rate 4 06/18/23 15:25 06/18/23 06/18/23 06/18/23 06:59 14:59 22:59 Intake Total 892.5 / 2632.6 530 / 530 Output Total 850 / 1400 Balance 42.5 / 1232.6 530 / 530 Weight last 48 hrs Weight 126.915 kg Physical Exam Narrative: She is alert awake oriented x3, drowsy in moderate distress due to abdominal pain and restriction of movement, she is morbidly obese Chest clear to auscultation bilaterally, on 4 L nasal cannula Cardiovascular normal heart sounds no murmurs Abdomen soft tender in bilateral lumbar areas, also poorly defined mass approximately 7 x 7 cm palpable on the left lumbar area which is tender and soft Extremities bilateral 1+ pitting lower extremity edema present Urinary Catheter Management: Vaughan: Cath Placed During This Visit: yes Reason for Continuing Indwelling Catheter: Accurate Measurement of Urinary Output in Critically Ill Patients Urinary Catheter Date of Insertion: 06/16/23 Urinary Catheter Time of Insertion: 13:39 Data 06/18/23 02:52 06/18/23 02:52 Micro: Microbiology 06/16/23 04:03 Urine Culture - Final Urine,Clean Catch Klebsiella pneumonia esbl 06/16/23 15:23 Blood Culture - Preliminary Blood NEGATIVE TO DATE 06/16/23 15:15 Blood Culture - Preliminary Blood NEGATIVE TO DATE A&P Assessment and plan (1) Anemia: (2) Rectus sheath hematoma: (3) Chronic anticoagulation: (4) Status post laparoscopic cholecystectomy: (5) A-fib: (6) Sleep apnea: Qualifiers: Sleep apnea type: unspecified type Qualified Code(s): G47.30 - Sleep apnea, unspecified (7) Acute kidney injury: (8) Hyperkalemia: Plan 73 year old female morbidly obese type 2 diabetes atrial fibrillation on Xarelto COPD on home oxygen therapy at 4 L nasal cannula obstructive sleep apnea on BiPAP at night congestive heart failure cerebrovascular accident presented with complaint of sudden severe abdominal pain last night and found to have a hemoglo bin of 7.7 from 10.4[4 weeks ago], CT abdomen pelvis consistent with left lumbar area and right side of vaginal introitus hematoma likely secondary to spontaneous bleeding being on anticoagulation.[CT findings new as compared to CT from 03/20] Rectus sheath hematoma: Most likely traumatic in setting of lifting of heavy boxes. Chronic anticoagulation with rivaroxaban. Last dose on 06/15 night. Conservative treatment. Appreciate surgical recommendations. Ice pack. Pain management. Anemia: In setting of rectus sheath hematoma. Post 2 unit of blood transfusion. Hemoglobin so far stable after transfusion around 8.8-8.5. Monitor every 8 hourly for now. Patient is on chronic anticoagulation with Xarelto. We will hold off on reversing the agent for now. Atrial fibrillation: Rate controlled. Continue with home dose of amiodarone. Holding off on Cardizem given soft blood pressures. Holding off on anticoagulation. NEVIN: Most likely in setting of hypotension from hypovolemic shock yesterday. IV fluids with normal saline at 75 cc/h. Medical reconciliation done for nephrotoxic drugs. Monitor BMP daily. Hyperkalemia: Most likely in setting of NVEIN and home dose of potassium. Oral potassium withheld. D50 with 10 units of insulin. Repeat potassium level in afternoon. Continue other chronic home medications. Plan for the day: Continue with oral amiodarone. Hold off on any further blood transfusion as patient is hemodynamically stable and clinically improving. Repeat CBC in a.m. Hold off on any further imaging because patient is hemodynamically stable. Urine growing ESBL Klebsiella the patient is clinically improving with resolution of leukocytosis. Intermittent sensitive to Zosyn. For now we will continue. Has mild hyponatremia today most likely in setting of mild fluid overload. IV Lasix 40 mg one-time. Stop IV fluids. Hyperkalemia most likely in setting of hemolysis of subcutaneous blood. D50 with 10 units of insulin. Repeat BMP in afternoon. Arm elevation, ice pack. Continue other chronic medications[facility] Regular diet. SCDs for DVT prophylaxis, Protonix for PUD prophylaxis. Full code. Attestations Medical Necessity Statement*: Requires further hospitalization for management of rectus sheath hematoma leading to anemia in a patient on chronic anticoagulation for atrial fibrillation Diagnoses Anemia D64.9 Rectus sheath hematoma S30.1XXA Chronic anticoagulation Z79.01 Status post laparoscopic cholecystectomy Z90.49 A-fib I48.91 Sleep apnea G47.30 Sleep apnea type: unspecified type Acute kidney injury N17.9 Hyperkalemia E87.5
[2023-06-18] MEDS: gabapentin 100 mg Capsule PO (20:59)
[2023-06-19] VITALS (24 sets, daily range): BP systolic 113–144; BP diastolic 64–89; PULSE 72–103; RESP 16–22; TEMP 36.4–37.4; O2SAT 96–99
[2023-06-19 01:14] LABS: Anion Gap 8.4 (5-19); Blood Urea Nitrogen 18 mg/dL (8-23); Calcium 9.4 mg/dL (8.5-10.5); Carbon Dioxide 34 mmol/L (22-29); Chloride 95 mmol/L (98-107); Glucose 114 mg/dL (65-115); Osmolality Calculated 279 mOsm/kg (285-295); Potassium 4.4 mmol/L (3.5-5.1); Sodium 133 mmol/L (136-145)
[2023-06-19 04:51] LABS: Basophils % 0.3 %; Eosinophils # 0.1 10^3/uL (0.0-0.8); Eosinophils % 1.2 %; Hematocrit 22.8 % (36-47); Lymphocytes # 0.8 10^3/uL (0.8-4.8); Lymphocytes % 7.8 %; Mean Corpuscular HGB Conc 29.8 g/dL (30-55); Mean Corpuscular Hemoglobin 27.8 pg (27-33); Mean Corpuscular Volume 93.1 fl (85-98); Mean Platelet Volume 9.5 fL (7.4-10.4); Monocytes # 1.1 10^3/uL (0.2-0.9); Monocytes % 11.2 %; Neutrophils # 7.67 10^3/uL (1.8-7.7); Neutrophils % 78.5 %; Nucleated Red Blood Cells % 0 %; Platelet Count 249 10^3/cmm (157-399); Red Blood Count 2.45 10^6/uL (3.85-5.65); Red Cell Distribution Width 15.7 % (12.1-15.1); White Blood Count 9.78 10^3/uL (3.29-11.43)
[2023-06-19 05:05] LABS: Alanine Aminotransferase 36 U/L (0-33); Albumin Level 2.5 g/dL (3.5-5.2); Alkaline Phosphatase 93 U/L (35-105); Anion Gap 8.6 (5-19); Aspartate Amino Transferase 14 U/L (0-32); Blood Urea Nitrogen 18 mg/dL (8-23); Calcium 8.9 mg/dL (8.5-10.5); Carbon Dioxide 33 mmol/L (22-29); Chloride 98 mmol/L (98-107); Globulin 2.1 g/dL (1.3-4.6); Glucose 100 mg/dL (65-115); Osmolality Calculated 282 mOsm/kg (285-295); Potassium 4.6 mmol/L (3.5-5.1); Sodium 135 mmol/L (136-145); Total Bilirubin 0.4 mg/dL (0.15-1.2); Total Protein 4.6 g/dL (6.6-8.7)
[2023-06-19] MEDS: piperacillin-tazobactam 3.375 GM in sodium chloride 0.9% (plus) 50 ML IV ×2 (05:43→21:53)
[2023-06-19] MEDS: allopurinol 100 mg Tablet PO (05:45)
[2023-06-19] MEDS: fluoxetine 20 mg Capsule PO (05:46)
[2023-06-19] MEDS: multivitamin therapeutic Tablet 1 TAB PO (05:46)
[2023-06-19] MEDS: morphine 4 mg/mL SDV 1 mL 2 MG IVP ×2 (05:54→22:02)
[2023-06-19] MEDS: budesonide 0.5 mg/2 mL Neb INHALATION ×2 (08:18→19:30)
[2023-06-19] MEDS: ipratropium-albuterol 3 mL Neb INHALATION ×4 (08:18→19:30)
[2023-06-19] MEDS: pantoprazole 40 mg SDV IVP (08:59)
[2023-06-19] MEDS: amiodarone 200 mg Tablet PO (08:59)
--- NOTE | 2023-06-19 09:10 | CTR_ITS ---
PROCEDURE INFORMATION: Exam: CTA Abdomen and Pelvis With Contrast Exam date and time: 06/19/2023 9:56 AM Age: 73 years old Clinical indication: Other: Rectus sheath hematoma TECHNIQUE: Imaging protocol: Computed tomographic angiography of the abdomen and pelvis with contrast. Exam focused on the arteries. 3D rendering (Not supervised by radiologist): MIP and/or 3D reconstructed images were created by the technologist. Radiation optimization: All CT scans at this facility use at least one of these dose optimization techniques: automated exposure control; mA and/or kV adjustment per patient size (includes targeted exams where dose is matched to clinical indication); or iterative reconstruction. Contrast material: OMNI 350; Contrast volume: 100 ml; Contrast route: INTRAVENOUS (IV); REPORTING DATA: Count of CT and Cardiac NM exams in prior 12 months: This patient has received 4 known [address]s and 0 known cardiac nuclear medicine studies in the 12 months prior to the current study. COMPARISON: CT ang ches abdpel [id number] 03/16/2023 9:50 PM RADIATION DOSE METRICS: Total DLP (mGy-cm): 1102.25 Other radiation dose metrics: VASCULATURE: FINDINGS: Lungs: Centrilobular emphysema is seen in the lower lungs. There is dependent opacity in both lower lungs, increased since 06/16/2023. Diaphragm: There is a small sliding-type hiatal hernia. Aorta: There is moderate aortic atherosclerotic disease. No aortic dissection or aneurysm. Celiac trunk and mesenteric arteries: Inferior mesenteric artery is patent. No high-grade stenosis in the celiac or superior mesenteric artery. Renal arteries: No high-grade stenosis in the right renal artery. No high-grade stenosis in the left renal artery. Right iliac arteries: Moderate calcific plaque without high-grade stenosis in the right common iliac artery. Normal right external iliac artery. Left iliac arteries: Moderate calcific plaque without high-grade stenosis in the left common iliac artery. No stenosis in the left external iliac artery. Liver: The liver is normal. Gallbladder and bile ducts: There is edema, trace gas, surgical clips and 3.3 x 2.8 cm fluid collection in the gallbladder in the gallbladder fossa. Gallbladder fossa fluid collection is mildly decreased since 06/16/2023. There is no intrahepatic or extrahepatic bile duct dilation. Pancreas: There is mild atrophy of the pancreas. Spleen: The spleen is unremarkable. Adrenal glands: Intermediate density 13 mm left adrenal nodule. Intermediate density 14 mm right adrenal nodule. Kidneys and ureters: There are simple cysts in both kidneys. There is no hydronephrosis or stones. There is an intermediate density 6.7 x 6.6 cm exophytic right renal lesion. Stomach and bowel: The stomach is decompressed, preventing meaningful evaluation of wall thickness. The small bowel is nondilated. The colon is markedly tortuous. There is moderate distal descending and sigmoid colonic diverticulosis without evidence of diverticulitis. There is a 3.8 x 0.4 cm linear radiodense foreign body in the sigmoid colon similar to the finding on 06/16/2023 (axial series 5, image 148). Appendix: The appendix is not visible. Intraperitoneal space: There is no free air or significant intraperitoneal free fluid. Lymph nodes: Right inguinal lymphadenopathy. Largest right inguinal lymph node measures 2.5 x 2.4 cm which is increased in size from 1.4 x 1.4 cm on 03/16/2023. No retroperitoneal, pelvic, left inguinal, zoltan hepatis or mesenteric lymphadenopathy. Urinary bladder: The urinary bladder is decompressed, preventing meaningful evaluation of wall thickness. The Vaughan catheter is appropriately positioned with the bulb and tip within the bladder lumen. Reproductive: The uterus is absent. There is no adnexal mass or large cyst. Bones/joints: There is moderate degenerative disease in the lumbar spine. The right hip prosthesis is intact and well aligned. There is severe degenerative disease at the left hip. Pelvis and sacrum are intact. Soft tissues: There is subcutaneous edema in both flanks and lower abdominal wall. There is a large left rectus sheath hematoma measuring 29 cm craniocaudal dimension and up to 14 x 7 cm axial dimension (roughly 6399-6309 cc). The abdominal wall intact. There is no hernia. CT/CT angio abdomen pelvis [id number] IMPRESSION: 1. Large left rectus sheath hematoma, slightly decreased in size since 06/16/2023. 2. Small fluid and gas collection in the gallbladder fossa consistent with recent cholecystectomy, decreased since 06/16/2023. 3. Increased dependent opacity in both lower lungs since 06/16/2023. Possible atelectasis or infection. 4. Increasing right inguinal lymphadenopathy may be reactive or neoplastic. 5. 3.8 cm linear radiodense foreign body in the sigmoid colon suggesting ingested foreign body (bone fragment). Position is similar to 06/16/2023. No sign of perforation. 6. Intermediate density 6.7 cm right renal lesion. Low-density was seen in the lesion on 03/16/2023 nonenhanced images. Probable interval hemorrhage into a renal cyst. 7. Incidental findings above. COMMENTS: 1. Consistent with the [place] [employer] [employer]'s Incidental Findings Committee white paper (J Am Isael Radiol 2018): Any incidental renal lesion less than 1 cm or classified as too small to characterize, or any incidental cystic renal lesion characterized as simple-appearing, is likely benign. No follow-up imaging is recommended for these lesions per consensus recommendations based on imaging criteria. 2. In the absence of a history or active diagnosis of lung cancer, it is recommended that this patient with emphysema be evaluated for enrollment in a low dose CT lung cancer screening program.
[2023-06-19] MEDS: iohexol 350 mg/mL 500 mL Btl (per mL) IV (10:05)
--- NOTE | 2023-06-19 12:39 | PM.PN ---
Subjective Subjective: No acute events overnight. Today morning patient seen sitting up in chair. She states she feels well but is disappointed that her hemoglobin is trending down. Complaining of constipation. Denies any nausea, vomiting, headache. States breathing is stable. Vitals/I&O/Wt Last Vital Signs Temp 97.8 F 06/19/23 08:00 Pulse 100 06/19/23 11:34 Resp 20 H 06/19/23 11:34 BP 134/87 06/19/23 08:00 Pulse Ox 96 06/19/23 11:34 O2 Del Method Nasal Cannula 06/19/23 11:34 O2 Flow Rate 4 06/19/23 11:34 06/18/23 06/19/23 06/19/23 22:59 06:59 14:59 Intake Total 530 / 1060 50 / 1110 530.000 / 530.000 Output Total 2300 / 2300 700 / 3000 Balance -1770 / -1240 -650 / -1890 530.000 / 530.000 Weight last 48 hrs Weight 127.323 kg Weight 126.915 kg Physical Exam Narrative: She is alert awake oriented x3, morbidly obese Chest clear to auscultation bilaterally, on 4 L nasal cannula Cardiovascular normal heart sounds no murmurs Abdomen soft tender in bilateral lumbar areas, also poorly defined mass approximately 7 x 7 cm palpable on the left lumbar area which is tender and soft Extremities bilateral 1+ pitting lower extremity edema present Urinary Catheter Management: Vaughan: Cath Placed During This Visit: yes Reason for Continuing Indwelling Catheter: Other Urinary Catheter Date of Insertion: 06/16/23 Urinary Catheter Time of Insertion: 13:39 Data 06/19/23 04:21 06/19/23 04:21 Other Labs: Radiology Impressions Abdomen/Pelvis CT 06/16/23 02:23 IMPRESSION: 1. Surgical clip noted in the gallbladder fossa. Irregularly-shaped air and fluid collection noted in the gallbladder fossa, with trace surrounding inflammatory changes, concerning for possible abscess measuring approximately 4.5 x 3.2 x 2.9 cm. Recommend clinical correlation. 2. Large mixed density likely hematoma in the left anterior abdominal wall measuring 30 x 15 x 10 cm. 3. Suspicious right inguinal lymphadenopathy, measuring up to 2.5 cm in the short axis. 4. Questionable masslike enlargement along the right side of the vaginal introitus (axial series 3, image 99), measuring 3.0 x 2.1 cm in the axial plane. COMMENTS: 1. Consistent with the [employer]'s Incidental Findings Committee white paper (J Am Isael Radiol 2018): Any incidental renal lesion less than 1 cm or classified as too small to characterize, or any incidental cystic renal lesion characterized as simple-appearing, is likely benign. No follow-up imaging is recommended for these lesions per consensus recommendations based on imaging criteria. 2. Emphysematous disease. In the absence of a history of cancer, recommend yearly CT chest screening. ADDENDUM: 06/16/23 0457 THIS REPORT CONTAINS FINDINGS THAT MAY BE CRITICAL TO PATIENT CARE. The findings were verbally communicated via telephone conference with HARPREET Barron at 4:56 AM CDT on 06/16/2023. The findings were acknowledged and understood. Abdomen/Pelvis CTA 06/19/23 09:10 IMPRESSION: 1. Large left rectus sheath hematoma, slightly decreased in size since 06/16/2023. 2. Small fluid and gas collection in the gallbladder fossa consistent with recent cholecystectomy, decreased since 06/16/2023. 3. Increased dependent opacity in both lower lungs since 06/16/2023. Possible atelectasis or infection. 4. Increasing right inguinal lymphadenopathy may be reactive or neoplastic. 5. 3.8 cm linear radiodense foreign body in the sigmoid colon suggesting ingested foreign body (bone fragment). Position is similar to 06/16/2023. No sign of perforation. 6. Intermediate density 6.7 cm right renal lesion. Low-density was seen in the lesion on 03/16/2023 nonenhanced images. Probable interval hemorrhage into a renal cyst. 7. Incidental findings above. COMMENTS: 1. Consistent with the [employer]'s Incidental Findings Committee white paper (J Am Isael Radiol 2018): Any incidental renal lesion less than 1 cm or classified as too small to characterize, or any incidental cystic renal lesion characterized as simple-appearing, is likely benign. No follow-up imaging is recommended for these lesions per consensus recommendations based on imaging criteria. 2. In the absence of a history or active diagnosis of lung cancer, it is recommended that this patient with emphysema be evaluated for enrollment in a low dose CT lung cancer screening program. Laboratory Results Micro: Microbiology 06/16/23 04:03 Urine Culture - Final Urine,Clean Catch Klebsiella pneumonia esbl A&P Assessment and plan (1) Anemia: (2) Rectus sheath hematoma: (3) Chronic anticoagulation: (4) Status post laparoscopic cholecystectomy: (5) A-fib: (6) Sleep apnea: Qualifiers: Sleep apnea type: unspecified type Qualified Code(s): G47.30 - Sleep apnea, unspecified (7) Acute kidney injury: (8) Hyperkalemia: Plan 73 year old female morbidly obese type 2 diabetes atrial fibrillation on Xarelto COPD on home oxygen therapy at 4 L nasal cannula obstructive sleep apnea on BiPAP at night congestive heart failure cerebrovascular accident presented with complaint of sudden severe abdominal pain last night and found to have a hemoglobin of 7.7 from 10.4[4 weeks ago], CT abdomen pelvis consistent with left lumbar area and right side of vaginal introitus hematoma likely secondary to spontaneous bleeding being on anticoagulation.[CT findings new as compared to CT from 03/20] Rectus sheath hematoma: Most likely traumatic in setting of lifting of heavy boxes. Chronic anticoagulation with rivaroxaban. Last dose on 06/15 night. Conservative treatment. Appreciate surgical recommendations. Ice pack. Pain management. Anemia: In setting of rectus sheath hematoma. Post 2 unit of blood transfusion. Hemoglobin so far stable after transfusion around 8.8-8.5. Monitor every 8 hourly for now. Patient is on chronic anticoagulation with Xarelto. We will hold off on reversing the agent for now. Atrial fibrillation: Rate controlled. Continue with home dose of amiodarone. Holding off on Cardizem given soft blood pressures. Holding off on anticoagulation. NEVIN: Most likely in setting of hypotension from hypovolemic shock yesterday. IV fluids with normal saline at 75 cc/h. Medical reconciliation done for nephrotoxic drugs. Monitor BMP daily. Hyperkalemia: Most likely in setting of NEVIN and home dose of potassium. Oral potassium withheld. D50 with 10 units of insulin. Repeat potassium level in afternoon. Continue other chronic home medications. Plan for the day: Hemoglobin down to 6.8 today. Because of continuous trend down of hemoglobin we will plan for CT abdomen pelvis to further differentiate the rectus sheath hematoma and to rule out any ongoing use. Transfuse 1 unit of PRBC with target hemoglobin more than 7. Continue with oral amiodarone. Holding off on anticoagulation given ongoing anemia from blood loss ADENIKE Vaughan. Urine culture growing ESBL E. coli. Continue with Zosyn to finish a 5-day course. No chances of UTI for now. Hyperkalemia resolved on labs today. Repeat H&H after blood transfusion. Continue with arm elevation. Start on milk of magnesia and senna Colace. ADENIKE Vaughan. Can plan for Lasix after blood transfusion[facility] Regular diet. SCDs for DVT prophylaxis, Protonix for PUD prophylaxis. Full code. Attestations Medical Necessity Statement*: Requires further hospitalization for management of blood loss anemia in setting of rectus sheath hematoma in a patient on chronic anticoagulation for atrial fibrillation requiring blood transfusions Diagnoses Anemia D64.9 Rectus sheath hematoma S30.1XXA Chronic anticoagulation Z79.01 Status post laparoscopic cholecystectomy Z90.49 A-fib I48.91 Sleep apnea G47.30 Sleep apnea type: unspecified type Acute kidney injury N17.9 Hyperkalemia E87.5
[2023-06-19] MEDS: magnesium hydroxide 30 mL UDC PO (12:48)
[2023-06-19] MEDS: sennosides-docusate Tablet 1 TAB PO ×2 (12:48→17:56)
--- NOTE | 2023-06-19 16:46 | PM.PN ---
Subjective Subjective: Patient seen and examined. She reports that her abdominal pain has improved. Vitals/I&O/Wt Last Vital Signs Temp 97.8 F 06/19/23 15:20 Pulse 73 06/19/23 15:58 Resp 16 06/19/23 15:58 BP 138/82 06/19/23 15:58 Pulse Ox 99 06/19/23 15:58 O2 Del Method Nasal Cannula 06/19/23 15:58 O2 Flow Rate 4 06/19/23 15:16 06/19/23 06/19/23 06/19/23 06:59 14:59 22:59 Intake Total 50 / 1110 890.000 / 890.000 350 / 1240.000 Output Total 700 / 3000 Balance -650 / -1890 890.000 / 890.000 350 / 1240.000 Weight last 48 hrs Weight 280 lb 11.2 oz Weight 279 lb 12.8 oz Physical Exam Narrative: General: No acute distress, awake alert oriented x3 Abdomen: Soft, nondistended, tender to palpation over the left rectus abdominis, no guarding or rebound There is a very large and multiple right inguinal lymph node Urinary Catheter Management: Vaughan: Cath Placed During This Visit: yes Reason for Continuing Indwelling Catheter: Other Urinary Catheter Date of Insertion: 06/16/23 Urinary Catheter Time of Insertion: 13:39 Data 06/19/23 04:21 06/19/23 04:21 A&P Assessment and plan (1) Rectus sheath hematoma: (2) Anemia: (3) Inguinal lymphadenopathy: (4) Vaginal mass: Plan This is a self-limiting condition. Her hemoglobin is down almost 3 from her last admission. No acute surgical intervention. Transfuse as needed. Carbohydrate consistent diet. Medical management per hospitalist. Recommend ADMITTING COORDINATOR consult regarding CT findings of masslike thickening at the vaginal introitus. There is also 1 very large right inguinal lymph node. She may need a surgical lymph node biopsy depending on Findings and recommendations by ADMITTING COORDINATOR Attestations Medical Necessity Statement*: Per primary Coding Level of Care Code 62108 Diagnoses Rectus sheath hematoma S30.1XXA Anemia D64.9 Inguinal lymphadenopathy R59.0 Vaginal mass N89.8
[2023-06-19] MEDS: FUROsemide 10 mg/mL SDV 4mL 40 MG IVP (17:25)
[2023-06-19] MEDS: gabapentin 100 mg Capsule PO (21:20)
[2023-06-20] VITALS (15 sets, daily range): BP systolic 111–173; BP diastolic 64–116; PULSE 69–92; RESP 14–20; TEMP 36.4–36.7; O2SAT 94–100
[2023-06-20 00:23] LABS: Hematocrit 25.6 % (36-47)
[2023-06-20 05:52] LABS: Basophils % 0.4 %; Eosinophils # 0.3 10^3/uL (0.0-0.8); Eosinophils % 2.6 %; Hematocrit 26.9 % (36-47); Lymphocytes # 0.8 10^3/uL (0.8-4.8); Lymphocytes % 7.9 %; Mean Corpuscular HGB Conc 30.5 g/dL (30-55); Mean Corpuscular Hemoglobin 28.2 pg (27-33); Mean Corpuscular Volume 92.4 fl (85-98); Mean Platelet Volume 9.1 fL (7.4-10.4); Monocytes # 1.3 10^3/uL (0.2-0.9); Monocytes % 12.1 %; Neutrophils # 7.84 10^3/uL (1.8-7.7); Neutrophils % 75.8 %; Nucleated Red Blood Cells % 0 %; Platelet Count 263 10^3/cmm (157-399); Red Blood Count 2.91 10^6/uL (3.85-5.65); Red Cell Distribution Width 15.9 % (12.1-15.1); White Blood Count 10.34 10^3/uL (3.29-11.43)
[2023-06-20] MEDS: multivitamin therapeutic Tablet 1 TAB PO (05:55)
[2023-06-20] MEDS: allopurinol 100 mg Tablet PO (05:55)
[2023-06-20] MEDS: fluoxetine 20 mg Capsule PO (05:55)
[2023-06-20] MEDS: piperacillin-tazobactam 3.375 GM in sodium chloride 0.9% (plus) 50 ML IV ×2 (05:56→15:27)
[2023-06-20 06:16] LABS: Alanine Aminotransferase 44 U/L (0-33); Albumin Level 2.7 g/dL (3.5-5.2); Alkaline Phosphatase 106 U/L (35-105); Anion Gap 9.3 (5-19); Aspartate Amino Transferase 28 U/L (0-32); Blood Urea Nitrogen 15 mg/dL (8-23); Calcium 9.2 mg/dL (8.5-10.5); Carbon Dioxide 35 mmol/L (22-29); Chloride 99 mmol/L (98-107); Globulin 2.3 g/dL (1.3-4.6); Glucose 114 mg/dL (65-115); Osmolality Calculated 290 mOsm/kg (285-295); Potassium 4.3 mmol/L (3.5-5.1); Sodium 139 mmol/L (136-145); Total Bilirubin 0.7 mg/dL (0.15-1.2)
[2023-06-20] MEDS: ipratropium-albuterol 3 mL Neb INHALATION ×4 (08:12→19:05)
[2023-06-20] MEDS: budesonide 0.5 mg/2 mL Neb INHALATION ×2 (08:12→19:05)
[2023-06-20] MEDS: amiodarone 200 mg Tablet PO (08:31)
[2023-06-20] MEDS: sennosides-docusate Tablet 1 TAB PO ×2 (08:31→17:06)
[2023-06-20] MEDS: pantoprazole 40 mg SDV IVP (09:49)
--- NOTE | 2023-06-20 12:03 | PC.NURSE ---
Pt has a BP of 173/113. Dr. Choudhury notified.
--- NOTE | 2023-06-20 15:26 | P.PN_ITS ---
Subjective Subjective: Patient presented to the ER on 06/16/2023 for abdominal pain in the left upper quadrant. She was found to have a left sided rectus sheath hematoma. Patient has received a total of 4 units of packed red blood cells. Unfortunately she suffered from IV infiltration while receiving blood and has bilateral extensive arm hematomas. 06/20/2023: Patient denies any significant complaints. She states she still little sore in the left lower quadrant. Patient states that she always breathes with pursed lipped breathing Vitals/I&O/Wt Last Vital Signs Temp 98.0 F 06/20/23 11:53 Pulse 92 06/20/23 11:53 Resp 16 06/20/23 11:53 BP 173/113 06/20/23 11:53 Pulse Ox 95 06/20/23 11:53 O2 Del Method Nasal Cannula 06/20/23 11:53 O2 Flow Rate 4 06/20/23 11:18 06/20/23 06/20/23 06/20/23 06:59 14:59 22:59 Intake Total 290 / 2310.000 530 / 530 Output Total 1750 / 1750 700 / 700 Balance -1460 / 560.000 -170 / -170 Weight last 48 hrs Weight 125.055 kg Weight 125.055 kg Weight 127.323 kg Physical Exam Narrative: Elderly obese female in no acute distress at time of exam except for pursed lip breathing which she says is her normal Neurologic alert and oriented x3 nonfocal exam Heart regular normal S1-S2 without loud murmur no clicks gallops or rubs Lungs: Diminished throughout no wheezes rales or rhonchi Abdomen obese. There is bruising along the left flank and yellow bruising in the left upper quadrant. There is skin marker outline with no skin changes at that location. Patient has tenderness on the left side palpation was limited due to not wanting to induce pain Extremities. Right and left upper extremities with purple almost black bruising and swelling. This is improved per the patient lower extremities has swelling in the calves 1-2+ edema not above the knees. Ankles are nonedematous Urinary Catheter Management: Vaughan: Cath Placed During This Visit: yes, but has since been removed by the nurse Reason for Continuing Indwelling Catheter: Accurate Measurement of Urinary Output in Critically Ill Patients Urinary Catheter Date of Insertion: 06/16/23 Urinary Catheter Time of Insertion: 13:39 Date Urinary Catheter Removed: 06/20/23 Time Urinary Catheter Discontinued: 06:00 Data 06/20/23 05:35 06/20/23 05:35 A&P Assessment and plan (1) Rectus sheath hematoma: Expect to be self-limiting. Follow-up CT shows decreased hematoma. (2) Chronic anticoagulation: Currently off anticoagulation and will likely not resume. (3) Abdominal wall hematoma: Resolving (4) Anemia: Hemoglobin today is 8.2. This is up from 7.9 yesterday. Will follow-up lab tomorrow (5) Status post laparoscopic cholecystectomy: Dr. Roldan has seen in follow-up therapy for this hospitalization no issues regarding surgery. (6) CHF (congestive heart failure): Currently compensated (7) COPD (chronic obstructive pulmonary disease): Currently compensated at baseline 4 L oxygen (8) Oxygen dependent: At baseline 4 L oxygen (9) Morbid obesity: BMI 44 Plan Increase activity. Plan to discharge on home health care. Check labs in a.m. If hemoglobin stable discharge to home Note: Dr. Roldan recommends MUCKER OPERATOR exam. I see listed vaginal mass. Will obtain outpatient consult Attestations Medical Necessity Statement*: Patient with life-threatening bleed. Patient received 4 units of packed red blood cells. Patient is to maintain hospitalization until stable. Coding Level of Care Code Acute Code for Chg Fwd Diagnoses Rectus sheath hematoma S30.1XXA Chronic anticoagulation Z79.01 Abdominal wall hematoma S30.1XXA Anemia D64.9 Status post laparoscopic cholecystectomy Z90.49 CHF (congestive heart failure) I50.9 COPD (chronic obstructive pulmonary disease) J44.9 Oxygen dependent Z99.81 Morbid obesity E66.01
[2023-06-20] MEDS: dilTIAZem 30 mg Tablet PO ×2 (15:27→21:26)
[2023-06-20] MEDS: levoFLOXacin 500 mg Tablet PO (17:06)
[2023-06-20] MEDS: HYDROcodone-acetaminophen 10-325 mg Tablet 1 TAB PO (21:25)
[2023-06-20] MEDS: gabapentin 100 mg Capsule PO (21:25)
[2023-06-21 02:01] VITALS: PULSE 80; RESP 18; O2SAT 97
[2023-06-21] MEDS: dilTIAZem 30 mg Tablet PO ×2 (03:31→08:43)
[2023-06-21 04:00] VITALS: BP 115/69; PULSE 65; RESP 18; TEMP 36.6; O2SAT 97
[2023-06-21 05:29] LABS: Hematocrit 26.3 % (36-47)
[2023-06-21 06:00] VITALS: PULSE 60
[2023-06-21] MEDS: allopurinol 100 mg Tablet PO (06:06)
[2023-06-21] MEDS: multivitamin therapeutic Tablet 1 TAB PO (06:06)
[2023-06-21] MEDS: levoFLOXacin 500 mg Tablet PO (06:06)
[2023-06-21] MEDS: fluoxetine 20 mg Capsule PO (06:06)
[2023-06-21 07:33] VITALS: BP 123/71; PULSE 66; RESP 19; TEMP 36.8; O2SAT 95
[2023-06-21 08:08] VITALS: PULSE 65; RESP 16; O2SAT 97
[2023-06-21] MEDS: budesonide 0.5 mg/2 mL Neb INHALATION (08:08)
[2023-06-21] MEDS: ipratropium-albuterol 3 mL Neb INHALATION (08:08)
[2023-06-21] MEDS: amiodarone 200 mg Tablet PO (08:43)
[2023-06-21] MEDS: sennosides-docusate Tablet 1 TAB PO (08:43)
--- NOTE | 2023-06-21 10:53 | PM.DCS ---
Discharge Providers Date of Admission: 06/16/23 09:51 Date of Discharge: June 21, 2023 Attending Provider at Admission: Lucila Ralph MD Attending Provider at Discharge: Mikey Montalvo DO Consults: Dr. Roladn Primary Care Provider: Sylvia Anthony MD Diagnoses at Discharge Discharge Diagnosis (1) Rectus sheath hematoma: Status: Acute (2) Chronic anticoagulation: Status: Acute (3) Abdominal wall hematoma: Status: Acute (4) Anemia: Status: Acute (5) Status post laparoscopic cholecystectomy: Status: Acute (6) CHF (congestive heart failure): Status: Chronic (7) COPD (chronic obstructive pulmonary disease): Status: Chronic Permanent problem details: sees Dr. Turner. (8) Oxygen dependent: Status: Acute Permanent problem details: Since 1999. (9) Morbid obesity: Status: Acute Reason for Visit Reason for Visit: abd pain Brief History: Patient is status postcholecystectomy by [address] of abdomen was done in the ER and patient was found to have a rectus sheath hematoma. Hospital Course Hospital Course Patient presented to the ER on 06/16/2023 for abdominal pain in the left upper quadrant.? She was found to have a left sided rectus sheath hematoma.? Xarelto was stopped. Patient has received a total of 4 units of packed red blood cells.? Unfortunately she suffered from IV infiltration while receiving blood and has bilateral extensive arm hematomas. 06/16/2023: Urinalysis grows Klebsiella pneumonia ESBL patient was on IV antibiotics 06/17/2023: Dr. Roldan consult due to status postcholecystectomy. No surgical problems or complications. CT of abdomen and pelvis shows a Suspicious right inguinal lymphadenopathy, measuring up to 2.5 cm in the short axis AND Questionable masslike enlargement along the right side of the vaginal introitus (axial series 3, image 99), measuring 3.0 x 2.1 cm in the axial plane. Will need MANUSCRIPTS ARCHIVIST follow-up. 06/20/2023: Hemoglobin 8.2. Changed to oral levofloxacin for Klebsiella pneumonia ESBL in urine 06/21/2023: Hemoglobin 8.1 patient more active she feels weak but no dizziness lightheadedness chest pain or shortness of breath Physical Exam Narrative: Elderly obese female in no acute distress at time of exam except for pursed lip breathing which she says is her normal Neurologic alert and oriented x3 nonfocal exam Heart regular normal S1-S2 without loud murmur no clicks gallops or rubs Lungs: Diminished throughout no wheezes rales or rhonchi Abdomen obese. There is bruising along the left flank and yellow bruising in the left upper quadrant. There is skin marker outline with no skin changes at that location. Patient has tenderness on the left side palpation was limited due to not wanting to induce pain Extremities. Right and left upper extremities with purple almost black bruising and swelling. This is improved per the patient lower extremities has swelling in the calves 1-2+ edema not above the knees. Ankles are nonedematous Urinary Catheter Management: Vaughan: Cath Placed During This Visit: yes, but has since been removed by the nurse Reason for Continuing Indwelling Catheter: Accurate Measurement of Urinary Output in Critically Ill Patients Urinary Catheter Date of Insertion: 06/16/23 Urinary Catheter Time of Insertion: 13:39 Date Urinary Catheter Removed: 06/20/23 Time Urinary Catheter Discontinued: 06:00 Discharge Data Studies Completed and Pending Completed Studies During Hospitalization Category Date Time Status CT abdomen pelvis w con* [id number] Stat Cat Scan 06/16/23 02:[address] angio abdomen pelvis [id number] Urgent Cat Scan 06/19/23 09:10 Completed Pending at discharge Category Date Time Status Blood Culture Stat Lab 06/16/23 15:23 Results Radiology Impressions Abdomen/Pelvis CT 06/16/23 02:23 IMPRESSION: 1. Surgical clip noted in the gallbladder fossa. Irregularly-shaped air and fluid collection noted in the gallbladder fossa, with trace surrounding inflammatory changes, concerning for possible abscess measuring approximately 4.5 x 3.2 x 2.9 cm. Recommend clinical correlation. 2. Large mixed density likely hematoma in the left anterior abdominal wall measuring 30 x 15 x 10 cm. 3. Suspicious right inguinal lymphadenopathy, measuring up to 2.5 cm in the short axis. 4. Questionable masslike enlargement along the right side of the vaginal introitus (axial series 3, image 99), measuring 3.0 x 2.1 cm in the axial plane. COMMENTS: 1. Consistent with the [employer]'s Incidental Findings Committee white paper (J Am Isael Radiol 2018): Any incidental renal lesion less than 1 cm or classified as too small to characterize, or any incidental cystic renal lesion characterized as simple-appearing, is likely benign. No follow-up imaging is recommended for these lesions per consensus recommendations based on imaging criteria. 2. Emphysematous disease. In the absence of a history of cancer, recommend yearly CT chest screening. ADDENDUM: 06/16/23 0457 THIS REPORT CONTAINS FINDINGS THAT MAY BE CRITICAL TO PATIENT CARE. The findings were verbally communicated via telephone conference with HARPREET Barron at 4:56 AM CDT on 06/16/2023. The findings were acknowledged and understood. Abdomen/Pelvis CTA 06/19/23 09:10 IMPRESSION: 1. Large left rectus sheath hematoma, slightly decreased in size since 06/16/2023. 2. Small fluid and gas collection in the gallbladder fossa consistent with recent cholecystectomy, decreased since 06/16/2023. 3. Increased dependent opacity in both lower lungs since 06/16/2023. Possible atelectasis or infection. 4. Increasing right inguinal lymphadenopathy may be reactive or neoplastic. 5. 3.8 cm linear radiodense foreign body in the sigmoid colon suggesting ingested foreign body (bone fragment). Position is similar to 06/16/2023. No sign of perforation. 6. Intermediate density 6.7 cm right renal lesion. Low-density was seen in the lesion on 03/16/2023 nonenhanced images. Probable interval hemorrhage into a renal cyst. 7. Incidental findings above. COMMENTS: 1. Consistent with the [employer]'s Incidental Findings Committee white paper (J Am Isael Radiol 2018): Any incidental renal lesion less than 1 cm or classified as too small to characterize, or any incidental cystic renal lesion characterized as simple-appearing, is likely benign. No follow-up imaging is recommended for these lesions per consensus recommendations based on imaging criteria. 2. In the absence of a history or active diagnosis of lung cancer, it is recommended that this patient with emphysema be evaluated for enrollment in a low dose CT lung cancer screening program. Laboratory Results WBC 10.34 10^3/uL (3.29-11.43) 06/20/23 05:35 RBC 2.91 10^6/uL (3.85-5.65) L 06/20/23 05:35 Hgb 8.10 g/dL (11.27-16.99) L 06/21/23 05:00 Hct 26.3 % (36-47) L 06/21/23 05:00 MCV 92.4 fl (85-98) 06/20/23 05:35 MCH 28.2 pg (27-33) 06/20/23 05:35 MCHC 30.5 g/dL (30-55) 06/20/23 05:35 RDW 15.9 % (12.1-15.1) H 06/20/23 05:35 Plt Count 263 10^3/cmm (157-399) 06/20/23 05:35 MPV 9.1 fL (7.4-10.4) 06/20/23 05:35 Neut % (Auto) 75.8 % 06/20/23 05:35 Lymph % (Auto) 7.9 % 06/20/23 05:35 [place] % (Auto) 12.1 % 06/20/23 05:35 Eos % (Auto) 2.6 % 06/20/23 05:35 Baso % (Auto) 0.4 % 06/20/23 05:35 Neut # (Auto) 7.84 10^3/uL (1.8-7.7) H 06/20/23 05:35 Lymph # (Auto) 0.8 10^3/uL (0.8-4.8) 06/20/23 05:35 [place] # (Auto) 1.3 10^3/uL (0.2-0.9) H 06/20/23 05:35 Eos # (Auto) 0.3 10^3/uL (0.0-0.8) 06/20/23 05:35 Baso # (Auto) 0.0 10^3/uL (0.0-0.1) 06/20/23 05:35 Nucleated RBC % (auto) 0 % 06/20/23 05:35 Nucleated RBCs # 0.0 /100WBC 06/20/23 05:35 PT 14.50 SECONDS (12.1-14.9) 06/16/23 02:30 INR 1.09 (0.8-1.2) 06/16/23 02:30 Sodium 139 mmol/L (136-145) 06/20/23 05:35 Potassium 4.3 mmol/L (3.5-5.1) 06/20/23 05:35 Chloride 99 mmol/L (98-107) 06/20/23 05:35 Carbon Dioxide 35 mmol/L (22-29) H 06/20/23 05:35 Anion Gap 9.3 (5-19) 06/20/23 05:35 BUN 15 mg/dL (8-23) 06/20/23 05:35 Creatinine 0.6 mg/dL (0.5-0.9) 06/20/23 05:35 GFR Calculation Not Reportable 06/20/23 05:35 Glucose 114 mg/dL (65-115) 06/20/23 05:35 POC Glucose 182 mg/dL (70-110) H 06/17/23 11:07 Estimat Average Glucose 97 06/17/23 05:35 Hemoglobin A1c 5.0 % (4.0-6.0) 06/17/23 05:35 Calculated Osmolality 290 mOsm/kg (285-295) 06/20/23 05:35 Lactic Acid 1.0 mmol/L (0.5-2.2) 06/16/23 02:30 Calcium 9.2 mg/dL (8.5-10.5) 06/20/23 05:35 Magnesium 2.2 mg/dL (1.7-2.3) 06/17/23 02:50 Total Bilirubin 0.7 mg/dL (0.15-1.2) 06/20/23 05:35 AST 28 U/L (0-32) 06/20/23 05:35 ALT 44 U/L (0-33) H 06/20/23 05:35 Alkaline Phosphatase 106 U/L (35-105) H 06/20/23 05:35 Total Protein 5.0 g/dL (6.6-8.7) L 06/20/23 05:35 Albumin 2.7 g/dL (3.5-5.2) L 06/20/23 05:35 Globulin 2.3 g/dL (1.3-4.6) 06/20/23 05:35 Triglycerides 99 mg/dL (0-150) 06/17/23 02:50 Cholesterol 133 mg/dL (0-200) 06/17/23 02:50 LDL Cholesterol, Calc 67 mg/dL (50-129) 06/17/23 02:50 Total VLDL Cholesterol 20 mg/dL (0-30) 06/17/23 02:50 HDL Cholesterol 46 mg/dL (60-100) L 06/17/23 02:50 Cholesterol/HDL Ratio 2.89 mg/dL (0.0-4.40) 06/17/23 02:50 Lipase 61 U/L (13-60) H 06/16/23 02:30 Vitamin B12 430 pg/mL (232-1245) 06/16/23 02:30 Folate 19.0 ng/mL (4.8-37.3) 06/17/23 02:50 Urine Color Yellow (Yellow) 06/16/23 04:03 Urine Appearance Hazy (CLEAR) A 06/16/23 04:03 Urine pH 5 (5-7) 06/16/23 04:03 Ur Specific [place] 1.020 (1.005-1.030) 06/16/23 04:03 Urine Protein 1+ (Negative) H 06/16/23 04:03 Urine Glucose (UA) Norm (Normal) 06/16/23 04:03 Urine Ketones Negative (Negative) 06/16/23 04:03 Urine Blood Neg (Negative) 06/16/23 04:03 Urine Nitrate Negative (Negative) 06/16/23 04:03 Urine Bilirubin 1+ (Negative) H 06/16/23 04:03 Urine Urobilinogen 1 mg/dL (Negative) H 06/16/23 04:03 Ur Leukocyte Esterase Trace (Negative) H 06/16/23 04:03 Urine RBC None /hpf (0-2) 06/16/23 04:03 Urine WBC 10-15 /hpf (0-5) H 06/16/23 04:03 Ur Squamous Epith Cells 0-4 /hpf (0-5) H 06/16/23 04:03 Ur Transition Epith Cell 5-10 /hpf 06/16/23 04:03 Amorphous Sediment Not Reportable 06/16/23 04:03 Urine Bacteria 3+ /hpf (NONE) H 06/16/23 04:03 Hyaline Casts 0-4 /lpf H 06/16/23 04:03 Urine Mucus 2+ /hpf 06/16/23 04:03 Blood Type O Positive 06/19/23 09:36 Rho(D) Type Positive 06/19/23 09:36 Antibody Screen Negative 06/19/23 09:36 Crossmatch See Detail 06/19/23 09:[address] Abd/Pel: Radiologist's impression: as above Vitals Last Vital Signs Temp 98.3 F 06/21/23 07:33 Pulse 65 06/21/23 08:08 Resp 16 06/21/23 08:08 BP 123/71 06/21/23 07:33 Pulse Ox 97 06/21/23 08:08 O2 Del Method Nasal Cannula 06/21/23 08:08 O2 Flow Rate 4 06/21/23 08:08 Discharge Plan Discharge Patient Disposition: Home Condition: Fair Prescriptions: New levofloxacin 500 mg Tablet 500 mg PO DAILY@0600 Qty: 5 0RF Continued potassium chloride 10 mEq capsule, extended release 10 meq PO BID allopurinol 100 mg tablet 100 mg PO QAM metformin 500 mg tablet 500 mg PO QAM fluoxetine 20 mg capsule 20 mg PO QAM albuterol sulfate 90 mcg/actuation HFA aerosol inhaler 2 puff INHALATION Q6H PRN (Reason: Shortness Of Breath) (DME) custom molded accommodative orthotic See Rx Instructions .ROUTE .MEDSUPPLY Qty: 1 0RF Rx Instructions: As directed albuterol sulfate 2.5 mg /3 mL (0.083 %) solution for nebulization 2.5 mg INHALATION Q4H PRN (Reason: Shortness Of Breath) gabapentin 100 mg capsule 100 mg PO BEDTIME amiodarone 200 mg tablet 200 mg PO DAILY Qty: 90 1RF (DME) oxygen-air delivery systems Device See Rx Instructions .Route Rx Instructions: 4 Liters per NC (DME) Diabetic Shoes with 3 pairs of inserts See Rx Instructions .Route .MEDSUPPLY Qty: 1 0RF Rx Instructions: As directed by HOME Kelly Richard 160-9-4.8 mcg/actuation HFA aerosol inhaler 2 inh inhalation BID Qty: 10.7 3RF multivitamin Tablet 1 tab PO QAM tolterodine 2 mg capsule,extended release 24hr 2 mg PO QAM diltiazem HCl 180 mg capsule,extended release 24hr 180 mg PO QAM omeprazole 40 mg capsule,delayed release(DR/EC) 40 mg PO BID hydrocodone-acetaminophen 10-325 mg tablet 1 tab PO Q6H PRN (Reason: pain) Qty: 20 0RF Rx Instructions: May take half of a tab at a time ondansetron 4 mg tablet,disintegrating 4 mg PO Q6H PRN (Reason: nausea and vomiting) Qty: 14 0RF Lasix 20 mg tablet 40 mg PO DAILY Discontinued Xarelto 20 mg tablet 20 mg PO BEDTIME Hold Instructions: Resume on 05/26/23. Discharge Orders: Discharge Order (Routine); Ordered 06/21/23 Ordered By: Mikey Montalvo Referrals: Bro Roldan DO [Physician] - Sylvia Anthony MD [Primary Care Provider] - 07/26/23 10:15 am Discharge Diet: Usual diet Discharge Activity: Increase activity as tolerated Activity Restrictions/Additional Instructions: Take 2 OTC iron supplements a day instead of one Watch for constipation recommend miralax or pharmacy equivalent to prevent constipation Discharge Attestations Time Spent in Discharge Care*: less than 30 min Quality Metrics Clinical Quality Measures [ No reported AMI, CVA or VTE this stay] Coding Level of Care Code Acute Code for Chg Fwd Diagnoses Rectus sheath hematoma S30.1XXA Chronic anticoagulation Z79.01 Abdominal wall hematoma S30.1XXA Anemia D64.9 Status post laparoscopic cholecystectomy Z90.49 CHF (congestive heart failure) I50.9 COPD (chronic obstructive pulmonary disease) J44.9 Oxygen dependent Z99.81 Morbid obesity E66.01
--- NOTE | 2023-06-21 11:42 | PC.NURSE ---
Discharge pending transportation. Daughter expected to be here to sweet pickle maker pt around noon.
[2023-06-21 12:00] VITALS: BP 129/69; PULSE 65; RESP 18; TEMP 36.7; O2SAT 95
== END 2023-06-21 13:39 | disposition home health service (06) | DRG 555 ==
LOC: ER 04:56 → MEDSURG 05:09 → ICU 06-17 06:04 → MEDSURG 06-18 14:51
PROVIDERS: Student in an Organized Health Care Education/Training Program; Admitting Provider Internal Medicine; Emergency Provider Emergency Medicine; PCP Family Medicine; Visit Provider Internal Medicine
DX: M79.81 Nontraumatic hematoma of soft tissue (principal); R57.1 Hypovolemic shock; N39.0 Urinary tract infection, site not specified; Z16.12 Extended spectrum beta lactamase (ESBL) resistance; Z68.41 Body mass index [BMI] 40.0-44.9, adult; E87.1 Hypo-osmolality and hyponatremia; N17.9 Acute kidney failure, unspecified; B96.1 Klebsiella pneumoniae [K. pneumoniae] as the cause of diseases classified elsewhere; Z98.890 Other specified postprocedural states; R59.0 Localized enlarged lymph nodes; E66.01 Morbid (severe) obesity due to excess calories; Z90.49 Acquired absence of other specified parts of digestive tract; Z79.84 Long term (current) use of oral hypoglycemic drugs; Z79.891 Long term (current) use of opiate analgesic; I48.91 Unspecified atrial fibrillation; N89.9 Noninflammatory disorder of vagina, unspecified; T80.89XA Other complications following infusion, transfusion and therapeutic injection, initial encounter; D69.51 Posttransfusion purpura; E87.5 Hyperkalemia; I95.9 Hypotension, unspecified; D50.0 Iron deficiency anemia secondary to blood loss (chronic); Z99.81 Dependence on supplemental oxygen; Z96.641 Presence of right artificial hip joint; E89.0 Postprocedural hypothyroidism; G47.33 Obstructive sleep apnea (adult) (pediatric); M10.9 Gout, unspecified; E11.9 Type 2 diabetes mellitus without complications; I10 Essential (primary) hypertension; Z99.89 Dependence on other enabling machines and devices; J44.9 Chronic obstructive pulmonary disease, unspecified; Y84.9 Medical procedure, unspecified as the cause of abnormal reaction of the patient, or of later complication, without mention of misadventure at the time of the procedure
CPT/HCPCS: 36415; 36416; 36430; 51702; 74174; 74177; 80048; 80053; 80061; 81001; 82607; 82746; 82962; 83036; 83605; 83690; 83735; 85014; 85018; 85025; 85610; 86850; 86900; 86920; 87040; 87077; 87086; 87186; 94640; 94660; 94664; 96376; 97110; 97161; C9113; G0378; J1815; J1940; J2270; J2405; J2543; J3490; J7030; J7626; P9016; Q3014; Q9967

== ENCOUNTER 2023-06-26 00:45 | Inpatient (IN) | payer MEDICARE, OTHER, MEDICAID, SELFPAY ==
[2023-06-26] VITALS (22 sets, daily range): BP systolic 98–139; BP diastolic 54–89; PULSE 62–107; RESP 16–26; TEMP 36.4–36.9; O2SAT 91–99
--- NOTE | 2023-06-26 00:56 | ECG_ITS ---
[facility] Test Date: 2023-06-26 Pat Name: Arielle Cooper Department: Room: Gender: Female Tack Welder: : 1950 Requested By: Placido Lipscomb Order Number: [id number] Rocky MD: Beka Gonzales M.D. Measurements Intervals [place] Rate: 86 P: 0 UT: 0 QRS: -32 QRSD: 110 T: 59 QT: 383 QTc: 459 Interpretive Statements ATRIAL FIBRILLATION LEFT AXIS DEVIATION [QRS AXIS < -30] PATTERN CONSISTENT WITH PULMONARY DISEASE MODERATE INTRAVENTRICULAR CONDUCTION DELAY [105+ ms QRS DURATION, 80+ ms Q/S IN V1/V2, NO Q AND 60+ ms R IN I/aVL/V5/V6] Compared to ECG 05/19/2023 09:25:03 Left-axis deviation now present Intraventricular conduction delay now present Myocardial infarct finding no longer present Electronically Signed On 06-26-2023 10:15:33 CDT by Beka Gonzales M.D. [id number]
--- NOTE | 2023-06-26 01:14 | XRR_ITS ---
PROCEDURE INFORMATION: Exam: XR Chest Exam date and time: 06/26/2023 1:20 AM Age: 73 years old Clinical indication: Shortness of breath; Prior surgery; Surgery date: 6+ months; Surgery type: Partial thyroidectomy. Thoracotomy. Patient HX: C/O SOB. TECHNIQUE: Imaging protocol: Radiologic exam of the chest. Views: 1 view. COMPARISON: CR XR chest 1V portable [id number] 03/21/2023 10:41 AM FINDINGS: Tubes, catheters and devices: The right central line has been removed. Lungs: Continued patchy bibasilar opacities which could represent atelectasis versus pneumonia. Pleural spaces: Unremarkable. No pleural effusion. No pneumothorax. Heart/Mediastinum: Unremarkable. No cardiomegaly. Bones/joints: Unremarkable. XR/XR chest 1V portable [id number] IMPRESSION: 1. The right central line has been removed. 2. Continued patchy bibasilar opacities which could represent atelectasis versus pneumonia.
[2023-06-26 01:28] LABS: Basophils % 0.4 %; Eosinophils # 0.2 10^3/uL (0.0-0.8); Eosinophils % 1.9 %; Hematocrit 28.1 % (36-47); Lymphocytes # 0.7 10^3/uL (0.8-4.8); Lymphocytes % 6.8 %; Mean Corpuscular HGB Conc 29.2 g/dL (30-55); Mean Corpuscular Hemoglobin 28.1 pg (27-33); Mean Corpuscular Volume 96.2 fl (85-98); Mean Platelet Volume 8.6 fL (7.4-10.4); Monocytes # 0.9 10^3/uL (0.2-0.9); Monocytes % 9.3 %; Neutrophils # 7.83 10^3/uL (1.8-7.7); Neutrophils % 79.9 %; Nucleated Red Blood Cells % 0 %; Platelet Count 291 10^3/cmm (157-399); Red Blood Count 2.92 10^6/uL (3.85-5.65); Red Cell Distribution Width 16.4 % (12.1-15.1); White Blood Count 9.81 10^3/uL (3.29-11.43)
[2023-06-26 01:43] LABS: INR 0.95 (0.8-1.2); Partial Thromboplastin Time 22.2 SECONDS (23.9-36.7)
[2023-06-26 01:54] LABS: Lactic Sepsis W/Reflex 1.3 mmol/L (0.5-2.2)
[2023-06-26 02:04] LABS: Alanine Aminotransferase 39 U/L (0-33); Alkaline Phosphatase 114 U/L (35-105); Anion Gap 7.9 (5-19); Aspartate Amino Transferase 20 U/L (0-32); Blood Urea Nitrogen 14 mg/dL (8-23); Carbon Dioxide 38 mmol/L (22-29); Chloride 96 mmol/L (98-107); Globulin 2.9 g/dL (1.3-4.6); Glucose 138 mg/dL (65-115); NT Pro B Type Natriuretic Pept 3325 pg/mL (0-125); Osmolality Calculated 289 mOsm/kg (285-295); Potassium 3.9 mmol/L (3.5-5.1); Sodium 138 mmol/L (136-145); Total Bilirubin 0.8 mg/dL (0.15-1.2); Total Protein 5.9 g/dL (6.6-8.7)
[2023-06-26 02:07] LABS: Add Urine Culture? No; Add Urine Microscopic? YES; Amorphous Sediment Urine 1+ /hpf; Bacteria Urine TRACE /hpf; Bilirubin Urine 1+ (Negative); Blood Urine Neg (Negative); Glucose Urine UA Norm (Normal); Ketones Urine 1+ (Negative); Leukocyte Esterase Urine 1+ (Negative); Nitrate Urine Negative (Negative); Protein Urine 1+ (Negative); RBC Urine 0-4 /hpf (0-2); Urine Appearance Hazy (CLEAR); Urine Color Yellow (Yellow); Urobilinogen Urine 8 mg/dL (Negative); pH Urine 5 (5-7)
--- NOTE | 2023-06-26 02:33 | PC.NURSE ---
Oxygen-Vital signs at 0123 and 0155 lists oxygen therapy as room air. This is an error and was on 4L via nasal cannula
--- NOTE | 2023-06-26 02:45 | W.ED.WEAKNES ---
HPI - Weakness General: Chief complaint: Weakness Stated complaint: WEAKNESS Time Seen by Provider: 06/26/23 01:00 History of Present Illness: 73-year-old female presenting with generalized weakness and shortness of breath. She was here recently after developing a hematoma in her rectus sheath while on anticoagulants, requiring 4 units of blood to be transfused. She is on continuous oxygen, and BiPAP at night. She woke up not feeling well, and her pulse ox read in the mid 60s. EMS crews were able to get her oxygen up, but she still very weak. She has been off of her anticoagulants since her admission here. Associated symptoms: Reports confusion and nausea; Denies chest pain, chills, fever(s), headache(s) or vomiting Review of Systems Const: Denies: fever(s), chills or body aches Eyes: Denies: change in vision ENMT: Denies: throat pain Card: Denies: chest pain or palpitations Resp: Reports: dyspnea; Denies: productive cough, non-productive cough or wheezing GI: Reports: nausea; Denies: abdominal pain, vomiting, diarrhea or hematochezia : Denies: difficulty voiding Skin/Breast: Denies: rash Neuro: Reports: weakness in extremities and confusion; Denies: headache(s), numbness in extremities or dizziness PFSH ED PFSH: Medical History A-fib Diagnosed in [address] Sears/Dr. Gonzales Anticoagulation adequate with anticoagulant therapy Xarelto Bacteremia CHF (congestive heart failure) Chronic anticoagulation COPD (chronic obstructive pulmonary disease) sees Dr. Turner. CVA (cerebral vascular accident) Diabetes Diagnosed in 2012 and is managed by PMD Diabetic peripheral neuropathy associated with type 2 diabetes mellitus E. coli septicemia Essential hypertension Diagnosed in 2004 and is on medication managed by PMD Gout Diagnosed in 2010 Morbid obesity No pertinent past medical history Denies seizures, DVT/PE PCP: Dr. Anthony Onychodystrophy Osteoarthritis of knees, bilateral Osteoarthritis of right hip Oxygen dependent Since 1999. Psoriasis Diagnosed in 2011--not on any medication--sees Dr. Michael Septic shock Sleep apnea Thrombocytopenia Surgical History S/P appendectomy Performed [place] [address] Malik at [facility] in [place], [place] S/P carpal tunnel release Carpal tunnel release on the right side, performed in [address] Moody at [place], [place] Carpal tunnel release on the left side, performed in [address] Medina at [place], [place] S/P cataract surgery Removal of cataract from the left eye in February [address] Ruby in [place], [place] Removal of cataract from the right eye in April [address] Ruby in [place], [place] S/P dilation and curettage Performed in [address] Jones at [place], [place] S/P excision of lipoma Excision of Lipoma from the breast, performed in [address] Shelton at [facility] in [place], [place] Excision of Lipoma from the left breast, performed 11/22/[address] Agrawal at [facility] in [place], [place] S/P hysterectomy Vaginal procedure---thinks that her ovaries were removed---performed in February [address] Jones at [place], [place] S/P partial thyroidectomy Performed in [address] Shelton at [facility] in [place], [place] S/P thoracotomy Performed in 2001 S/P tonsillectomy Performed in [address] Malik at [facility] in [place], [place] S/P trigger finger release Bilateral, performed in [address] Chaney at [place], [place] S/P tubal ligation Laparoscopic procedure---performed in [address] Malik at [facility] in [place], [place] Status post laparoscopic cholecystectomy Status post lumbar surgery Lumbar surgery at L3/L4, performed in 1975 at [facility] Status post total hip replacement, right Right side---performed 07/08/[address] Keith at [facility] in [place], [place] Family History Father Diabetes Heart disease Sister Heart disease Breast cancer diagnosed in her 40s Denies family history of Colon cancer Ovarian cancer Hyperlipidemia Hypertension Uterine cancer Thyroid disease Stroke Social History Smoking and tobacco/nicotine status: never used tobacco/nicotine Substance/Drug Use: never Do you think of yourself as: Straight/Heterosexual Physical Exam Const: GENERAL APPEARANCE: cooperative, ill appearing and frail appearing HENMT: COMMON NORMALS: normocephalic and atraumatic HEAD & SCALP: normocephalic and atraumatic FACE & SINUS: normal facial exam and face symmetric NOSE: Normal nares present Eye: COMMON NORMALS: Equal, round and reactive pupils present and EOMs intact bilaterally PUPIL: Yes Equal, round and reactive pupils present Neck/C-Spine: GENERAL: Yes trachea midline Chest: CHEST: Yes Symmetrical chest wall rise Resp: EFFORT & INSPECTION: Yes tachypneic, Yes pursed lip breathing and Yes labored Cardio: RHYTHM: abnormal rhythm irregularly irregular GI: COMMON NORMALS: Soft to palpation PALPATION: Yes Soft to palpation Course Vital Signs: Vital signs: Vital Signs Temperature 97.5 F L 06/26/23 04:00 Pulse Rate 95 06/26/23 04:14 Respiratory Rate 18 06/26/23 04:14 Blood Pressure 111/77 06/26/23 04:14 Pulse Oximetry 97 06/26/23 04:14 Oxygen Delivery Me thod Nasal Cannula 06/26/23 04:00 Oxygen Flow Rate 5 06/26/23 04:00 MDM - Weakness Medical Decision Making Patient is mildly tachycardic but normotensive. PCO2 is elevated. She appears to be requiring a bit more oxygen. Hemoglobin is stable from prior admission. Chest x-ray shows chronic findings. BNP is elevated. Spoke with hospitalist. Given level of frailty, anemia, hypoxia, hypercapnia, will observe. He will see the patient in the ER. Lab Data 06/26/23 01:05 06/26/23 01:05 Radiology Impressions Chest X-Ray 06/26/23 01:14 IMPRESSION: 1. The right central line has been removed. 2. Continued patchy bibasilar opacities which could represent atelectasis versus pneumonia. Laboratory Results WBC 9.81 10^3/uL (3.29-11.43) 06/26/23 01:05 RBC 2.92 10^6/uL (3.85-5.65) L 06/26/23 01:05 Hgb 8.20 g/dL (11.27-16.99) L 06/26/23 01:05 Hct 28.1 % (36-47) L 06/26/23 01:05 MCV 96.2 fl (85-98) 06/26/23 01:05 MCH 28.1 pg (27-33) 06/26/23 01:05 MCHC 29.2 g/dL (30-55) L 06/26/23 01:05 RDW 16.4 % (12.1-15.1) H 06/26/23 01:05 Plt Count 291 10^3/cmm (157-399) 06/26/23 01:05 MPV 8.6 fL (7.4-10.4) 06/26/23 01:05 Neut % (Auto) 79.9 % 06/26/23 01:05 Lymph % (Auto) 6.8 % 06/26/23 01:05 [place] % (Auto) 9.3 % 06/26/23 01:05 Eos % (Auto) 1.9 % 06/26/23 01:05 Baso % (Auto) 0.4 % 06/26/23 01:05 Neut # (Auto) 7.83 10^3/uL (1.8-7.7) H 06/26/23 01:05 Lymph # (Auto) 0.7 10^3/uL (0.8-4.8) L 06/26/23 01:05 [place] # (Auto) 0.9 10^3/uL (0.2-0.9) 06/26/23 01:05 Eos # (Auto) 0.2 10^3/uL (0.0-0.8) 06/26/23 01:05 Baso # (Auto) 0.0 10^3/uL (0.0-0.1) 06/26/23 01:05 Nucleated RBC % (auto) 0 % 06/26/23 01:05 Nucleated RBCs # 0.0 /100WBC 06/26/23 01:05 PT 12.90 SECONDS (12.1-14.9) 06/26/23 01:05 INR 0.95 (0.8-1.2) 06/26/23 01:05 APTT 22.2 SECONDS (23.9-36.7) L 06/26/23 01:05 Specimen Type Arterial 06/26/23 02:58 Sample Site Radial, right 06/26/23 02:58 ABG pH 7.39 (7.35-7.45) 06/26/23 02:58 ABG pCO2 68.2 mmHg (35-45) H* 06/26/23 02:58 ABG pO2 87.8 mmHg (80.0-100.0) 06/26/23 02:58 ABG HCO3 40.9 mmol/L (22-26) H 06/26/23 02:58 ABG Base Excess 13.9 mmol/L (-2.0-2.0) H 06/26/23 02:58 Michael Test Pos 06/26/23 02:58 Hematocrit 26.1 % (37-47) L 06/26/23 02:58 O2 Delivery Device Nc 06/26/23 02:58 O2 Liters/Min 5.0 % 06/26/23 02:58 Blindstitch Hemmer ID [email or web address] 06/26/23 02:58 Sodium 138 mmol/L (136-145) 06/26/23 01:05 Potassium 3.9 mmol/L (3.5-5.1) 06/26/23 01:05 Chloride 96 mmol/L (98-107) L 06/26/23 01:05 Carbon Dioxide 38 mmol/L (22-29) H 06/26/23 01:05 Anion Gap 7.9 (5-19) 06/26/23 01:05 BUN 14 mg/dL (8-23) 06/26/23 01:05 Creatinine 0.5 mg/dL (0.5-0.9) 06/26/23 01:05 GFR Calculation Not Reportable 06/26/23 01:05 Glucose 138 mg/dL (65-115) H 06/26/23 01:05 Calculated Osmolality 289 mOsm/kg (285-295) 06/26/23 01:05 Lactic Acid 1.3 mmol/L (0.5-2.2) 06/26/23 01:05 Calcium 10.0 mg/dL (8.5-10.5) 06/26/23 01:05 Total Bilirubin 0.8 mg/dL (0.15-1.2) 06/26/23 01:05 AST 20 U/L (0-32) 06/26/23 01:05 ALT 39 U/L (0-33) H 06/26/23 01:05 Alkaline Phosphatase 114 U/L (35-105) H 06/26/23 01:05 Troponin T Baseline 28 ng/L (0-10) H 06/26/23 01:05 NT-Pro-B Natriuret Pep 3325 pg/mL (0-125) H 06/26/23 01:05 Total Protein 5.9 g/dL (6.6-8.7) L 06/26/23 01:05 Albumin 3.0 g/dL (3.5-5.2) L 06/26/23 01:05 Globulin 2.9 g/dL (1.3-4.6) 06/26/23 01:05 Urine Color Yellow (Yellow) 06/26/23 01:35 Urine Appearance Hazy (CLEAR) A 06/26/23 01:35 Urine pH 5 (5-7) 06/26/23 01:35 Ur Specific Bernice 1.020 (1.005-1.030) 06/26/23 01:35 Urine Protein 1+ (Negative) H 06/26/23 01:35 Urine Glucose (UA) Norm (Normal) 06/26/23 01:35 Urine Ketones 1+ (Negative) H 06/26/23 01:35 Urine Blood Neg (Negative) 06/26/23 01:35 Urine Nitrate Negative (Negative) 06/26/23 01:35 Urine Bilirubin 1+ (Negative) H 06/26/23 01:35 Urine Urobilinogen 8 mg/dL (Negative) H 06/26/23 01:35 Ur Leukocyte Esterase 1+ (Negative) H 06/26/23 01:35 Urine RBC 0-4 /hpf (0-2) H 06/26/23 01:35 Urine WBC 10-15 /hpf (0-5) H 06/26/23 01:35 Ur Squamous Epith Cells 10-15 /hpf (0-5) H 06/26/23 01:35 Amorphous Sediment 1+ /hpf 06/26/23 01:35 Urine Bacteria Trace /hpf (NONE) 06/26/23 01:35 Urine Yeast Trace /hpf 06/26/23 01:35 Nasal Influ A H1 2008 PCR Not detected (NOT DETECT) 06/26/23 03:27 Adenovirus (PCR) Not detected (NOT DETECT) 06/26/23 03:27 C. pneumoniae DNA (PCR) Not detected (NOT DETECT) 06/26/23 03:27 Coronavirus 229E (PCR) Not detected (NOT DETECT) 06/26/23 03:27 Human Metapneumovir PCR Not detected (NOT DETECT) 06/26/23 03:27 Influenza A (H1) PCR Not detected (NOT DETECT) 06/26/23 03:27 Influenza A (H3) PCR Not detected (NOT DETECT) 06/26/23 03:27 Influenza Type A (PCR) Not detected (NOT DETECT) 06/26/23 03:27 Influenza Type B (PCR) Not detected (NOT DETECT) 06/26/23 03:27 M. pneumoniae (PCR) Not detected (NOT DETECT) 06/26/23 03:27 Parainfluenza 1 (PCR) Not detected (NOT DETECT) 06/26/23 03:27 Parainfluenza 2 (PCR) Not detected (NOT DETECT) 06/26/23 03:27 Parainfluenza 3 (PCR) Not detected (NOT DETECT) 06/26/23 03:27 Parainfluenza 4 (PCR) Not detected (NOT DETECT) 06/26/23 03:27 RSV Type A (PCR) Not detected (NOT DETECT) 06/26/23 03:27 RSV Type B (PCR) Not detected (NOT DETECT) 06/26/23 03:27 Entero/Rhino (PCR) Not detected (NOT DETECT) 06/26/23 03:27 SARS-CoV-2 (PCR) Detected (NOT DETECT) A 06/26/23 03:27 Blood Type O Positive 06/26/23 01:29 Rho(D) Type Positive 06/26/23 01:29 Antibody Screen Negative 06/26/23 01:29 All radiology interpretation(s) finalized by discharge Discharge Plan Discharge Patient Disposition: Admitted As Inpatient Admit Provider: Matthew Garcia Clinical Impression: Anemia, Respiratory failure with hypoxia and hypercapnia Condition: Fair Coding Level of Care Code ED Roping Machine Tender for Belkys Herrera
[2023-06-26] MEDS: ipratropium-albuterol 3 mL Neb INHALATION ×4 (02:50→20:08)
[2023-06-26 03:11] LABS: ABG PH Result 7.39 (7.35-7.45); Arterial Blood Gas Hematocrit 26.1 % (37-47); Base Excess ABG 13.9 mmol/L (-2.0-2.0); Blood Gas Allen Test Pos; Blood Gas Sample Site Radial, right; Blood Gas Sample Type Arterial; HCO3 ABG 40.9 mmol/L (22-26); Oxygen Device NC; PO2 ABG 87.8 mmHg (80.0-100.0)
[2023-06-26 03:23] LABS: ABG PCO2 68.2 mmHg (35-45)
--- NOTE | 2023-06-26 03:31 | ECG_ITS ---
[facility] Test Date: 2023-06-26 Pat Name: Arielle Cooper Department: Room: 255 Gender: Female Vc++ Developer: : 1950 Requested By: Placido Lipscomb Order Number: [id number] Rocky MD: Beka Gonzales M.D. Measurements Intervals [place] Rate: 93 P: 0 CT: 0 QRS: -35 QRSD: 110 T: 83 QT: 365 QTc: 456 Interpretive Statements ATRIAL FIBRILLATION LEFT AXIS DEVIATION [QRS AXIS < -30] PATTERN CONSISTENT WITH PULMONARY DISEASE MODERATE ST DEPRESSION [0.05+ mV ST DEPRESSION] Compared to ECG 06/26/2023 00:56:30 ST (T wave) deviation now present Intraventricular conduction delay no longer present Electronically Signed On 06-26-2023 10:15:29 CDT by Beka Gonzales M.D. [id number]
[2023-06-26 03:50] LABS: Troponin(5th) Baseline 28 ng/L (0-10)
--- NOTE | 2023-06-26 04:03 | CTR_ITS ---
PROCEDURE INFORMATION: Exam: CTA Chest With Contrast Exam date and time: 06/26/2023 4:31 AM Age: 73 years old Clinical indication: Shortness of breath; Prior surgery; Surgery date: 1-6 months; Surgery type: Gb 05/23/2023. Thyroid. Thoracotomy; Patient HX: SOB with hypoxia. History of copd and chf. Patient currently has known rectus sheath hematoma. ; Additional info: Assess for pe TECHNIQUE: Imaging protocol: Computed tomographic angiography of the chest with contrast. Exam focused on the arteries. 3D rendering (Not supervised by radiologist): MIP and/or 3D reconstructed images were created by the technologist. Radiation optimization: All CT scans at this facility use at least one of these dose optimization techniques: automated exposure control; mA and/or kV adjustment per patient size (includes targeted exams where dose is matched to clinical indication); or iterative reconstruction. Contrast material: OMNI 350; Contrast volume: 68 ml; Contrast route: INTRAVENOUS (IV); REPORTING DATA: Count of CT and Cardiac NM exams in prior 12 months: This patient has received 4 known CTs and 0 known cardiac nuclear medicine studies in the 12 months prior to the current study. COMPARISON: CT lung screening [id number] 06/21/2022 8:24 AM RADIATION DOSE METRICS: Total DLP (mGy-cm): 484.9 FINDINGS: Pulmonary arteries: Normal. No pulmonary emboli. Aorta: Unremarkable. No aortic aneurysm. No aortic dissection. Lungs: There is a background of centrilobular emphysema and pulmonary fibrosis. Additionally, there are patchy ground-glass opacities present that could represent a superimposed interstitial pneumonitis. Pleural spaces: Some patchy opacities are seen in the posterior costophrenic recess most probably representing atelectasis. Heart: Calcifications are seen in the mitral valve annulus. Coronary arteries: Moderate coronary artery calcifications are seen. Lymph nodes: Unremarkable. No enlarged lymph nodes. Bones/joints: Unremarkable. No acute fracture. Soft tissues: Unremarkable. CT/CT angio chest PE protcl [id number] IMPRESSION: 1. There is no evidence for pulmonary emboli. 2. Background of severe centrilobular emphysema and pulmonary fibrosis. 3. There are patchy ground-glass opacities that may represent an pulmonary fibrosis as well although superimposed interstitial pneumonitis cannot be excluded. 4. Mitral valve disease. COMMENTS: In the absence of a history or active diagnosis of lung cancer, it is recommended that this patient with emphysema be evaluated for enrollment in a low dose CT lung cancer screening program.
--- NOTE | 2023-06-26 04:19 | PM.HP ---
Providers/Chief Complaint Admitting Physician: Matthew Garcia Primary Care Provider: Sylvia Anthony MD Chief Complaint: WEAKNESS History of Present Illness Pleasant 73-year-old lady recently hospitalized due to rectus sheath hematoma, taken off anticoagulation which she was taking for atrial fibrillation, with ESBL Kleb UTI, was discharged with a course of Levaquin, with underlying COPD normally on oxygen and uses BiPAP at night was not feeling well last night, something felt off and her oxygen saturation was reading 65%. She has felt weaker than before. She does bleed O2 into the machine. Carboxyhemoglobin reported mildly bumped at 3.5%. Some swelling of right upper extremity versus from prior admission after bilateral upper extremity hematoma with IV infiltration during blood transfusion. No lower extremity edema. She used to have significant reflux disease, but this has subsided, no recent reflux, sleeps in a recliner. Denies vomiting. Chronic atelectasis appears possibly scarification noted at bases on chest x-ray unchanged from recent, present going as far back as 2019. UA with 10-15 WBC, but contaminated sample, 10-15 SEC, trace bacteria, trace yeast. Baseline troponin 28, 2-hour troponin 27.7. Unremarkable orthostatic vitals done in the ER. Review of Systems Const: Reports: fatigue and other (Feels weaker); Denies: fever(s), chills, body aches or malaise ENMT: Denies: throat pain Card: Denies: chest pain, edema, pre-syncope or dyspnea on exertion Resp: Reports: productive cough (Chronic occasional) and other; Denies: dyspnea, change in phlegm color or hemoptysis GI: Denies: abdominal pain, nausea, vomiting, diarrhea, constipation, hematochezia or melena : Denies: flank pain, urinary frequency or hematuria Musc: Denies: back pain, joint swelling or joint redness Skin/Breast: Denies: rash or new lesions Neuro: Denies: headache(s), numbness in extremities, weakness in extremities, dizziness, confusion or seizure-like activity Medications/Allergies Home Medications Medication Instructions Recorded Confirmed Last Taken Type allopurinol 100 mg tablet 100 mg PO QAM 10/12/19 06/16/23 06/15/23 History metformin 500 mg tablet 500 mg PO QAM 10/12/19 06/16/23 06/15/23 History potassium chloride 10 mEq 10 meq PO BID 10/12/19 06/16/23 06/15/23 History capsule,extended release albuterol sulfate 90 mcg/actuation 2 puff inhalation Q6H PRN 05/09/20 06/16/23 05/23/23 07:00 History aerosol inhaler Shortness Of Breath albuterol sulfate 2.5 mg/3 mL 2.5 mg inhalation Q4H PRN 06/17/20 06/16/23 05/22/23 History (0.083 %) solution for nebulization Shortness Of Breath fluoxetine 20 mg capsule 20 mg PO QAM 12/29/20 06/16/23 06/15/23 History custom molded accommodative #1 ea 04/02/21 06/16/23 Unknown Rx orthotic gabapentin 100 mg capsule 100 mg PO BEDTIME 08/20/21 06/16/23 06/15/23 History oxygen-air delivery systems 01/27/22 06/16/23 Unknown History Diabetic Shoes with 3 pairs of #1 ea 08/10/22 06/16/23 Unknown Rx inserts budesonide 160 mcg-glycopyr 9 2 inh inhalation BID #10.7 grams 02/21/23 06/16/23 05/23/23 08:30 Rx mcg-formot 4.8 mcg/actuation HFA inhaler ([employer]) diltiazem HCl 180 mg 180 mg PO QAM 03/17/23 06/16/23 06/15/23 History capsule,extended release 24 hr multivitamin 1 tab PO QAM 03/17/23 06/16/23 06/15/23 History omeprazole 40 mg capsule,delayed 40 mg PO BID 03/17/23 06/16/23 06/15/23 History release tolterodine 2 mg capsule,extended 2 mg PO QAM 03/17/23 06/16/23 06/15/23 History release 24 hr ondansetron 4 mg disintegrating 4 mg PO Q6H PRN nausea and 05/16/23 06/16/23 05/22/23 Rx tablet vomiting #14 tabs amiodarone 200 mg tablet 200 mg PO DAILY #90 tabs 05/19/23 06/16/23 06/15/23 Rx hydrocodone 10 mg-acetaminophen 1 tab PO Q6H PRN pain #20 tabs 05/23/23 06/16/23 Unknown Rx 325 mg tablet furosemide 20 mg tablet (Lasix) 40 mg PO DAILY 06/16/23 06/16/23 06/15/23 History levofloxacin 500 mg tablet 500 mg PO DAILY@0600 #5 tabs 06/21/23 Unknown Rx Allergies Allergy/AdvReac Type Severity Reaction Status Date / Time adhesive tape Allergy ALGY-Hives Verified 06/16/23 02:40 PFSH Acute PFSH: Medical History A-fib Diagnosed in [address] Sears/Dr. Gonzales Anticoagulation adequate with anticoagulant therapy Xarelto Bacteremia CHF (congestive heart failure) Chronic anticoagulation COPD (chronic obstructive pulmonary disease) sees Dr. Turner. CVA (cerebral vascular accident) Diabetes Diagnosed in 2012 and is managed by PMD Diabetic peripheral neuropathy associated with type 2 diabetes mellitus E. coli septicemia Essential hypertension Diagnosed in 2004 and is on medication managed by PMD Gout Diagnosed in 2010 Morbid obesity No pertinent past medical history Denies seizures, DVT/PE PCP: Dr. Anthony Onychodystrophy Osteoarthritis of knees, bilateral Osteoarthritis of right hip Oxygen dependent Since 1999. Psoriasis Diagnosed in 2011--not on any medication--sees Dr. Michael Septic shock Sleep apnea Thrombocytopenia Surgical History S/P appendectomy Performed [place] [address] Malik at [facility] in [place], [place] S/P carpal tunnel release Carpal tunnel release on the right side, performed in [address] Moody at [place], [place] Carpal tunnel release on the left side, performed in [address] Medina at [place], [place] S/P cataract surgery Removal of cataract from the left eye in February [address] Ruby in [place], [place] Removal of cataract from the right eye in April [address] Ruby in [place], [place] S/P dilation and curettage Performed in [address] Jones at [place], [place] S/P excision of lipoma Excision of Lipoma from the breast, performed in [address] Shelton at [facility] in [place], [place] Excision of Lipoma from the left breast, performed 11/22/[address] Agrawal at [facility] in [place], [place] S/P hysterectomy Vaginal procedure---thinks that her ovaries were removed---performed in February [address] Jones at [facility] in [place], [place] S/P partial thyroidectomy Performed in [address] Shelton at [facility] in [place], [place] S/P thoracotomy Performed in 2001 S/P tonsillectomy Performed in [address] Malik at [facility] in [place], [place] S/P trigger finger release Bilateral, performed in [address] Chaney at [place], [place] S/P tubal ligation Laparoscopic procedure---performed in [address] Malik at [facility] in [place], [place] Status post laparoscopic cholecystectomy Status post lumbar surgery Lumbar surgery at L3/L4, performed in 1975 at [facility] Status post total hip replacement, right Right side---performed 07/08/[address] Keith at [facility] in [place], [place] Family History Father Diabetes Heart disease Sister Heart disease Breast cancer diagnosed in her 40s Denies family history of Colon cancer Ovarian cancer Hyperlipidemia Hypertension Uterine cancer Thyroid disease Stroke Social History Smoking and tobacco/nicotine status: never used tobacco/nicotine Substance/Drug Use: never Do you think of yourself as: Straight/Heterosexual Vitals/I&O/Wt Last Vital Signs Temp 98.4 F 06/26/23 00:45 Pulse 95 06/26/23 04:14 Resp 18 06/26/23 04:14 BP 111/77 06/26/23 04:14 Pulse Ox 97 06/26/23 04:14 O2 Del Method Nasal Cannula 06/26/23 03:08 O2 Flow Rate 5 06/26/23 03:08 Weight last 48 hrs Weight 88.813 kg Physical Exam Narrative: Accompanied by her daughter. Const: COMMON NORMALS: patient oriented x3 and alert GENERAL APPEARANCE: cooperative ORIENTATION/CONSCIOUSNESS: Yes awake HENMT: COMMON NORMALS: oropharynx normal Neck/C-Spine: COMMON NORMALS: no JVD Resp: COMMON NORMALS: normal respiratory effort Cardio: COMMON NORMALS: no JVD, regular rhythm, S1 normal heart sound present, S2 normal heart sound present and No murmurs present (Cardio) RHYTHM: regular rhythm HEART SOUNDS: S1 normal heart sound present and S2 normal heart sound present GI: COMMON NORMALS: Normal to inspection, nondistended, normoactive bowel sounds present, Soft to palpation and non-tender PALPATION: Yes Soft to palpation Extremity: COMMON NORMALS: no joint enlargement and no pedal edema Neuro: COMMON NORMALS: patient oriented x3 and moves all extremities SENSORIUM/ORIENTATION: Yes alert Data 06/26/23 01:05 06/26/23 01:05 A&P Assessment and plan (1) Weakness: Fell off, feeling weaker than previously. Episode of possible hypoxia -additional assessment as below. Recently also treated for ESBL Klebsiella UTI completing course of Levaquin. 1 more dose left, and continue and complete antibiotic. UA in ER with 10-15 WBC, but contaminated sample with 10-15 SEC. we will request repeat sample. Additionally questionable masslike enlargement on the right side of the vaginal introitus on CT scan prior admission. Right inguinal lymphadenopathy measuring up to 2.5 cm. Neoplastic cause not excluded. Will need additional assessment. Consider reimaging in case of signs of developing infection or sepsis. Complete troponin EKG series without cardiac ischemia also in the setting of anemia. Reviewed EKG, my interpretation no obvious ischemic changes. Noted rate controlled atrial fibrillation. Some septal T wave flattening. Reviewed CBC, PT/INR, ABG, CMP, UA, EKG, CXR. Discussed with ER physician, ER documentation reviewed. We will also check TSH. CK. (2) Hypoxic episode: Episode of possible hypoxia with reading 65%, although significant hypoxia not observed here. On ABG reviewed PO2 is 87.8. She is on 5 L here saturating 97%. She states she does bleed oxygen into her BiPAP. Has had some mildly productive cough. Recently is much more immobile. Has been off anticoagulation. Recent hospitalization. At risk of PE. We will additionally assess CT angiogram chest for possible PE as discussed with her and her daughter, discussed risks of SILVIA. Additional pulmonary assessment with CTA for possible PE. Noted some chronic scarification of bilateral lower lungs. Unclear etiology. She is on amiodarone although these lower lung findings appear to precede amiodarone treatment. Consider possibility of amiodarone contribution. Follow-up with pulmonology, previously seen Dr. Turner. On review of pulmonology note noted consideration of whether thoracotomy in 2001 for lung biopsy could explain scarlike atelectasis. Appears to be bibasilar, however. Currently additional assessment pending with CT. Additionally has had history of quite significant reflux disease, although states this has subsided recently. Sleeps in a recliner. Previously had severe reflux, consider possibility of causing lung fibrosis. Additionally has underlying marked emphysema/COPD. Possible mild COPD exacerbation. I will schedule breathing treatments, has been on Levaquin, continue course, has 1 more dose left. Will assess respiratory viral panel. Continue oxygen support, wean down as tolerating. Incentive spirometer. Also noted some abnormality of carboxyhemoglobin, mild increase up to 3.5%, even though she is a non-smoker, and states does not have exposure to secondhand smoke. States she thinks she may not have carbon monoxide detectors at home as everything is electric, discussed with her and her daughter to obtain carbon monoxide detectors for additional monitoring. Carboxyhemoglobin certainly is not elevated but with her limited reserve may be contributing to her symptoms. Plan Rectus sheath hematoma: Gradually improving. Has been off Xarelto since last admission. Upper extremity hematoma: Following IV infiltration. Has been gradually improving. Still bruising. Still some swelling right upper extremity. Will obtain venous duplex ultrasound. Anemia: Hemoglobin appears unchanged at 8.2. Complete troponin EKG series to exclude cardiac ischemia. Has been off anticoagulation. Status post cholecystectomy on 05/23. History of diastolic CHF: Currently does not appear decompensated. Atrial fibrillation: On Cardizem, amiodarone, off anticoagulation due to recent rectal sheath hematoma. Attestations Medical Necessity Statement*: Place in observation for additional assessment management due to weakness, hypoxic episode, and lady with recent hospitalization, rectus sheath hematoma, MDRO UTI, with multiple comorbidities as above. Diagnoses Weakness R53.1 Hypoxic episode R09.02
[2023-06-26] MEDS: fixodent 39 gm Tube 1 APPLIC DENTAL (04:21)
[2023-06-26] MEDS: iohexol 350 mg/mL 500 mL Btl (per mL) IV (04:39)
--- NOTE | 2023-06-26 04:42 | USR_ITS ---
PROCEDURE INFORMATION: Exam: US Duplex Right Upper Extremity Veins, Limited Exam date and time: 06/26/2023 6:31 AM Age: 73 years old Clinical indication: Edema, localized; Upper extremity, right; Additional info: Swelling TECHNIQUE: Imaging protocol: Real-time duplex ultrasound of the right Upper Extremity with 2-D coy scale, color Doppler flow and spectral waveform analysis with image documentation. Limited exam focused on the right upper extremity veins. COMPARISON: CT angio chest PE protcl [id number] 06/26/2023 4:31 AM FINDINGS: Right deep veins: Unremarkable. Axillary and brachial veins are patent throughout without thrombus. Normal Doppler waveforms. Normal compressibility and/or augmentation response. Visualized internal jugular and subclavian veins are patent. Superficial veins: Visualized basilic vein is patent without thrombus. However, there is absence of flow and low level echoes seen within the right cephalic, findings compatible with acute superficial venous thrombosis. Soft tissues: Unremarkable. US/[place] [id number] IMPRESSION: 1. No evidence of deep vein thrombosis. 2. Acute superficial venous thrombosis of the right cephalic vein.
[2023-06-26] MEDS: dilTIAZem ER (24HR) 180 mg Capsule PO (04:46)
[2023-06-26] MEDS: allopurinol 100 mg Tablet PO (04:46)
[2023-06-26] MEDS: fluoxetine 20 mg Capsule PO (04:46)
--- NOTE | 2023-06-26 04:48 | PC.NURSE ---
Addendum entered by Alana Villeda RN 06/26/23 05:27: Dr. Garcia notified. Original Note: Patient's bottle of Levofloxacin from home was ordered to administer as non-formulary. Patient's bottle only had one pill in it which was administered at this time.
--- NOTE | 2023-06-26 05:09 | PC.NURSE ---
Addendum entered by Alana Villeda RN 06/26/23 05:27: Dr. Garcia notified. Original Note: Patient states she hasn't taken her Xarelto in a while due to her surgery and hematoma and she said she stopped taking her gabapentin a week ago because she thought it was giving her bad dreams.
[2023-06-26 05:18] LABS: Creatine Phosphokinase 20 U/L (26-192); Thyroid Stimulating Hormone 3.49 uIU/mL (0.27-4.20)
[2023-06-26 05:21] LABS: Adenovirus Not Detected (NOT DETECT); Chlamydia Pneumoniae Not Detected (NOT DETECT); Coronavirus 229E,HKU1,NL63,OC4 Not Detected (NOT DETECT); Human Metapneumovirus Not Detected (NOT DETECT); Human Rhinovirus/Enterovirus Not Detected (NOT DETECT); Influenza A Not Detected (NOT DETECT); Influenza A H1 Not Detected (NOT DETECT); Influenza A H1-2009 Not Detected (NOT DETECT); Influenza A H3 Not Detected (NOT DETECT); Influenza B Not Detected (NOT DETECT); Mycoplasma Pneumoniae Not Detected (NOT DETECT); Parainfluenza Virus Type 1 Not Detected (NOT DETECT); Parainfluenza Virus Type 2 Not Detected (NOT DETECT); Parainfluenza Virus Type 3 Not Detected (NOT DETECT); Parainfluenza Virus Type 4 Not Detected (NOT DETECT); Respiratory Syncytial Virus A Not Detected (NOT DETECT); Respiratory Syncytial Virus B Not Detected (NOT DETECT)
[2023-06-26 05:32] LABS: SARS-COV-2 Detected (NOT DETECT)
[2023-06-26] MEDS: remdesivir 200 MG in sodium chloride 0.9% (100 ml) 60 ML 100 MG IV (06:00)
[2023-06-26 06:47] LABS: Glucose Point of Care 112 mg/dL (70-110)
--- NOTE | 2023-06-26 07:30 | ECG_ITS ---
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 Measurements Intervals [place] Rate: 85 P: 0 SC: 0 QRS: -20 QRSD: 110 T: 30 QT: 402 QTc: 479 Interpretive Statements ATRIAL FIBRILLATION MODERATE INTRAVENTRICULAR CONDUCTION DELAY [105+ ms QRS DURATION, 80+ ms Q/S IN V1/V2, NO Q AND 60+ ms R IN I/aVL/V5/V6] Compared to ECG 06/26/2023 03:31:52 Intraventricular conduction delay now present Left-axis deviation no longer present ST (T wave) deviation no longer present Electronically Signed On 06-26-2023 10:21:09 CDT by Beka Gonzales M.D. [email or web address]
[2023-06-26 09:42] LABS: Troponin 5 6HR 31.01 ng/L (0-10)
[2023-06-26 09:45] LABS: Troponin 5 6HR Delta 3.01 ng/L (0-12)
[2023-06-26] MEDS: ferrous sulfate EC 325 mg Tablet PO (11:13)
[2023-06-26] MEDS: pantoprazole DR 40 mg Tablet PO ×2 (11:13→17:51)
[2023-06-26] MEDS: amiodarone 200 mg Tablet PO (11:14)
[2023-06-26] MEDS: dexamethasone 4 mg Tablet 6 MG PO (11:14)
[2023-06-26 12:10] LABS: Glucose Point of Care 129 mg/dL (70-110)
[2023-06-26 12:45] LABS: Urine Appearance SL Hazy (CLEAR); Urine Color Dark Yellow (Yellow); pH Urine 5 (5-7)
[2023-06-26 12:46] LABS: Add Urine Microscopic? YES; Bilirubin Urine Neg (Negative); Blood Urine Neg (Negative); Glucose Urine UA Norm (Normal); Ketones Urine Negative (Negative); Leukocyte Esterase Urine Trace (Negative); Nitrate Urine Negative (Negative); Protein Urine Trace (Negative); Specific Gravity, Urine 1.015 (1.005-1.030); Urobilinogen Urine 4 mg/dL (Negative)
[2023-06-26 12:49] LABS: Bacteria Urine 1+ /hpf; Mucus Urine 1+ /hpf
[2023-06-26 12:50] LABS: Add Urine Culture? No
--- NOTE | 2023-06-26 13:20 | PM.PN ---
Subjective Subjective: Pleasant 73-year-old lady recently hospitalized due to rectus sheath hematoma, taken off anticoagulation which she was taking for atrial fibrillation, with ESBL Kleb UTI, was discharged with a course of Levaquin, with underlying COPD normally on oxygen and uses BiPAP at night was not feeling well last night, something felt off and her oxygen saturation was reading 65%. She has felt weaker than before. She does bleed O2 into the machine. Carboxyhemoglobin reported mildly bumped at 3.5%. She used to have significant reflux disease, but this has subsided, no recent reflux, sleeps in a recliner.? Denies vomiting.? Chronic atelectasis appears possibly scarification noted at bases on chest x-ray unchanged from recent, present going as far back as 2019.UA with 10-15 WBC, but contaminated sample, 10-15 SEC, trace bacteria, trace yeast. Troponins negative orthostatics negative COVID: Found positive on viral panel.? Started remdesivir, Decadron for COVID-pneumonia with increased oxygen requirement.? Maintain isolation. Note patient is not requiring any more oxygen than her baseline 4 L nasal cannula. IMPRESSION: 1. ? There is no evidence for pulmonary emboli. 2. ? Background of severe centrilobular emphysema and pulmonary fibrosis. 3. ? There are patchy ground-glass opacities that may represent an pulmonary fibrosis as well although superimposed interstitial pneumonitis cannot be excluded. 4. ? Mitral valve disease. 06/26/2023 1 PM:She appears exactly as I discharged her on 06/21/2023 which was 5 days prior. She report reports just feeling very weak and unable to move. Vitals/I&O/Wt Last Vital Signs Temp 97.9 F 06/26/23 11:27 Pulse 74 06/26/23 11:27 Resp 19 H 06/26/23 11:27 BP 104/55 06/26/23 11:27 Pulse Ox 97 06/26/23 11:27 O2 Del Method Nasal Cannula 06/26/23 11:27 O2 Flow Rate 4 06/26/23 07:39 06/25/23 06/26/23 06/26/23 22:59 06:59 14:59 Intake Total 340 / 340 240 / 240 Balance 340 / 340 240 / 240 Weight last 48 hrs Weight 88.451 kg Weight 88.813 kg Physical Exam Narrative: Obese white female who appears in no acute distress. She appears exactly as I discharged her on 06/21/2023 which was 5 days prior. Heart regular normal S1-S2 without loud murmur click gallop or rub Lungs: Severely diminished breath sounds with poor expiration. Abdomen obese soft nontender nondistended bruising still noted on her left side and flank Extremities +1-2 to the knees. Data 06/26/23 01:05 06/26/23 01:05 A&P Assessment and plan (1) Weakness: Feeling weaker than previously. Likely needed SNF placement but patient had refused last admission. Recently also treated for ESBL Klebsiella UTI completing course of Levaquin. 1 more dose left, and continue and complete antibiotic. UA in ER contaminated. UA was repeated. We will request repeat sample. Additionally questionable masslike enlargement on the right side of the vaginal introitus on CT scan prior admission. Right inguinal lymphadenopathy measuring up to 2.5 cm. Neoplastic cause not excluded. [employer]ING INSPECT[employer] assessment may be needed as an inpatient. troponins mildly elevated but no significant delta. EKG series without cardiac ischemia. CK negative. (2) Hypoxic episode: Episode of possible hypoxia with reading 65%, although significant hypoxia not observed here. On ABG reviewed PO2 is 87.8. She is on 5 L here saturating 97%. She states she does bleed oxygen into her BiPAP. However she uses 4 L during day On [address] she has: There is a background of centrilobular emphysema and pulmonary fibrosis. Additionally, there are patchy ground-glass opacities present that could represent a superimposed interstitial pneumonitis. Pleural spaces: Some patchy opacities are seen in the posterior costophrenic recess most probably representing atelectasis. She is on amiodarone although these lower lung findings appear to precede amiodarone treatment. Consider possibility of amiodarone contribution. Consider consult with Dr. Saini as she has seen him previously. Pulmonology, previously seen Dr. Turner. Additionally has had history of quite significant reflux disease, although states this has subsided recently. Sleeps in a recliner. Previously had severe reflux, consider possibility of causing lung fibrosis. Severe end-stage COPD and fibrosis. Also noted some abnormality of carboxyhemoglobin, mild increase up to 3.5%, even though she is a non-smoker, and states does not have exposure to secondhand smoke. States she thinks she may not have carbon monoxide detectors at home as everything is electric, discussed with her and her daughter to obtain carbon monoxide detectors for additional monitoring. Carboxyhemoglobin certainly is not elevated but with her limited reserve may be contributing to her symptoms. Plan Rectus sheath hematoma: Gradually improving. Has been off Xarelto since last admission. Upper extremity hematoma: Following IV infiltration. Has been gradually improving. Still bruising. Still some swelling right upper extremity. This appears improved since discharge on 06/23/2023. Anemia: Hemoglobin appears unchanged at 8.2. Has been off anticoagulation. Status post cholecystectomy on 05/23. History of diastolic CHF: Patient does have bilateral lower extremity edema. Atrial fibrillation: On Cardizem, amiodarone, off anticoagulation due to recent rectal sheath hematoma. Attestations Medical Necessity Statement*: Changed to full admission for COVID diagnosis as well as weakness requiring PT OT to evaluate and treat. Recommend retirement home placement on discharge. Coding Level of Care Code Acute Code for [facility] Fwd Diagnoses Weakness R53.1 Hypoxic episode R09.02
[2023-06-26] MEDS: flu vacc pf 2023-24 (6 mos+) 60 MCG IM (17:51)
[2023-06-26 18:02] LABS: Glucose Point of Care 210 mg/dL (70-110)
[2023-06-26 21:07] LABS: Glucose Point of Care 294 mg/dL (70-110)
[2023-06-27] VITALS (9 sets, daily range): BP systolic 109–129; BP diastolic 67–74; PULSE 70–80; RESP 16–22; TEMP 36.4–36.8; O2SAT 91–99
[2023-06-27] MEDS: ipratropium-albuterol 3 mL Neb INHALATION ×4 (02:27→20:54)
[2023-06-27] MEDS: remdesivir 100 MG in sodium chloride 0.9% (100 ml) 80 ML IV (05:33)
[2023-06-27] MEDS: dilTIAZem ER (24HR) 180 mg Capsule PO (05:34)
[2023-06-27] MEDS: fluoxetine 20 mg Capsule PO (05:34)
[2023-06-27] MEDS: levoFLOXacin 500 mg Tablet PO (05:34)
[2023-06-27] MEDS: allopurinol 100 mg Tablet PO (05:34)
[2023-06-27 06:45] LABS: Glucose Point of Care 167 mg/dL (70-110)
[2023-06-27 10:00] LABS: Basophils % 0.2 %; Hematocrit 28.8 % (36-47); Lymphocytes # 0.5 10^3/uL (0.8-4.8); Lymphocytes % 4.8 %; Mean Corpuscular HGB Conc 28.8 g/dL (30-55); Mean Corpuscular Hemoglobin 28.2 pg (27-33); Mean Platelet Volume 8.6 fL (7.4-10.4); Monocytes # 0.5 10^3/uL (0.2-0.9); Monocytes % 5.6 %; Neutrophils # 8.48 10^3/uL (1.8-7.7); Neutrophils % 88.3 %; Nucleated Red Blood Cells % 0 %; Platelet Count 253 10^3/cmm (157-399); Red Blood Count 2.94 10^6/uL (3.85-5.65); Red Cell Distribution Width 16.2 % (12.1-15.1); White Blood Count 9.61 10^3/uL (3.29-11.43)
[2023-06-27] MEDS: ferrous sulfate EC 325 mg Tablet PO (10:16)
[2023-06-27] MEDS: amiodarone 200 mg Tablet PO (10:16)
[2023-06-27] MEDS: dexamethasone 4 mg Tablet 6 MG PO (10:16)
[2023-06-27] MEDS: pantoprazole DR 40 mg Tablet PO ×2 (10:17→17:47)
[2023-06-27 10:24] LABS: Alanine Aminotransferase 30 U/L (0-33); Albumin Level 2.8 g/dL (3.5-5.2); Alkaline Phosphatase 102 U/L (35-105); Anion Gap 8.3 (5-19); Aspartate Amino Transferase 14 U/L (0-32); Blood Urea Nitrogen 15 mg/dL (8-23); Calcium 9.7 mg/dL (8.5-10.5); Carbon Dioxide 36 mmol/L (22-29); Chloride 98 mmol/L (98-107); Glucose 153 mg/dL (65-115); Osmolality Calculated 290 mOsm/kg (285-295); Potassium 4.3 mmol/L (3.5-5.1); Sodium 138 mmol/L (136-145); Total Bilirubin 0.5 mg/dL (0.15-1.2); Total Protein 5.8 g/dL (6.6-8.7)
[2023-06-27 12:35] LABS: Glucose Point of Care 130 mg/dL (70-110)
--- NOTE | 2023-06-27 13:45 | PC.SOCIAL ---
PG 2 IMM Explained to pt Pg 2 IMM. No questions voiced. Provided pt a copy. Initialed, dated, & timed a copy & placed in chart.
--- NOTE | 2023-06-27 15:59 | PM.PN ---
Subjective Subjective: Hospital course, labs appreciated. Examination patient lying comfortably in bed on 40 of oxygen supplementation. States she is feeling slightly stronger. Breathing is at baseline. Denies any nausea, vomiting, headache. Has remained hemodynamically stable. Blood work appreciated. Blood work appreciated for a stable CBC with hemoglobin of 8, stable CMP. Vitals/I&O/Wt Last Vital Signs Temp 98.3 F 06/27/23 12:00 Pulse 76 06/27/23 13:30 Resp 16 06/27/23 13:30 BP 109/74 06/27/23 12:00 Pulse Ox 93 06/27/23 13:30 O2 Del Method Nasal Cannula 06/27/23 13:30 O2 Flow Rate 4 06/27/23 13:30 FiO2 36 06/26/23 20:17 06/27/23 06/27/23 06/27/23 06:59 14:59 22:59 Intake Total 100 / 940 960 / 960 Balance 100 / 590 960 / 960 Weight last 48 hrs Weight 84.822 kg Weight 88.451 kg Weight 88.813 kg Physical Exam Const: COMMON NORMALS: patient oriented x3 and alert GENERAL APPEARANCE: cooperative, ill appearing and frail appearing ORIENTATION/CONSCIOUSNESS: Yes awake HENMT: COMMON NORMALS: normocephalic, atraumatic and oropharynx normal HEAD & SCALP: normocephalic and atraumatic FACE & SINUS: normal facial exam and face symmetric NOSE: Normal nares present Eye: COMMON NORMALS: Equal, round and reactive pupils present and EOMs intact bilaterally PUPIL: Yes Equal, round and reactive pupils present Neck/C-Spine: COMMON NORMALS: no JVD GENERAL: Yes trachea midline Chest: CHEST: Yes Symmetrical chest wall rise Resp: COMMON NORMALS: normal respiratory effort EFFORT & INSPECTION: Yes tachypneic, Yes pursed lip breathing and Yes labored Cardio: COMMON NORMALS: no JVD, regular rhythm, S1 normal heart sound present, S2 normal heart sound present and No murmurs present (Cardio) RHYTHM: regular rhythm and abnormal rhythm irregularly irregular HEART SOUNDS: S1 normal heart sound present and S2 normal heart sound present GI: COMMON NORMALS: Normal to inspection, nondistended, normoactive bowel sounds present, Soft to palpation and non-tender PALPATION: Yes Soft to palpation Extremity: COMMON NORMALS: no joint enlargement and no pedal edema RIGHT LOWER EXTREMITY: Yes hip joint and Yes knee joint LEFT LOWER EXTREMITY: Yes hip joint (Pain with any range of motion.) and Yes knee joint Neuro: COMMON NORMALS: patient oriented x3 and moves all extremities SENSORIUM/ORIENTATION: Yes alert Data 06/27/23 09:50 06/27/23 09:50 Micro: Microbiology 06/26/23 20:17 Gram Stain - Final Sputum - Expectorated Sputum A&P Assessment and plan (1) Respiratory failure with hypoxia and hypercapnia: Acute on chronic. In setting of COVID-19. (2) COVID-19: Hypoxia secondary to COVID-19 pneumonia: Mild disease. Oxygen supplementation keeping saturation over 88%. Dexamethasone 6 mg daily for overall 10 days. Remdesivir to finish a 3-5-day course. DuoNeb every 6 hour, budesonide twice daily Pulmonary toilet with incentive spirometry flutter valve. We will monitor inflammatory markers including CRP, D-dimer every 48 hours. (3) Weakness: Most likely in setting of COVID-19. Patient has had frequent hospitalization with the last 3 months for various reasons. Most recently for acute anemia from the patient with hematoma. Continue to monitor. Discussed in detail regarding further discharge planning with the patient. Discussed given frequent hospitalization, severe COPD and COVID-19 currently it would be safe for patient to be discharged to SNF. Patient states her daughter is also having cholecystectomy within next few days. She is agreeable. Case management alerted. 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 Oxygen supplementation with BiPAP with oxygen at night. Worsening secondary to COVID-19. Improving. Keep oxygen saturation over 88%. Pulmicort twice daily, DuoNebs every [address] imaging. Also noted some abnormality of carboxyhemoglobin, mild increase up to 3.5%, even though she is a non-smoker, and states does not have exposure to secondhand smoke. States she thinks she may not have carbon monoxide detectors at home as everything is electric, discussed with her and her daughter to obtain carbon monoxide detectors for additional monitoring. Carboxyhemoglobin certainly is not elevated but with her limited reserve may be contributing to her symptoms. (5) Rectus sheath hematoma: Recovering. Hemoglobin stable. Continue to hold off on anticoagulation for overall 14 days which will be till 07/05 (6) Anticoagulation adequate with anticoagulant therapy: (7) Vaginal mass: Will need to follow-up with EMPLOYEE RELATIONS SPECIALIST as an outpatient for further work-up. Plan Status post cholecystectomy on 05/23. History of diastolic CHF: Patient does have bilateral lower extremity edema. IV Lasix 40 mg one-time. Atrial fibrillation: On Cardizem, amiodarone, off anticoagulation due to recent rectal sheath hematoma. Full code Carb consistent diet Heparin 5000 every 12 hourly for DVT prophylaxis Protonix for PUD prophylaxis. Discharge plan: Plan to discharge to SNF for further rehabilitation given recurrent admissions for various reasons, generalized weakness in setting of COVID-19, recent anemia from rectus sheath hematoma. Discussed in detail with the patient. She is agreeable. Case management alerted. Attestations Medical Necessity Statement*: Requires further hospitalization for management of acute on chronic hypoxia in setting of COVID-19, end-stage COPD, recent anemia from rectus sheath hematoma Diagnoses Respiratory failure with hypoxia and hypercapnia J96.91; J96.92 COVID-19 U07.1 Weakness R53.1 Hypoxic episode R09.02 Rectus sheath hematoma S30.1XXA Anticoagulation adequate with anticoagulant therapy Z79.01 Vaginal mass N89.8
[2023-06-27 16:31] LABS: Glucose Point of Care 134 mg/dL (70-110)
[2023-06-27] MEDS: FUROsemide 10 mg/mL SDV 4mL 40 MG IVP (17:47)
[2023-06-27] MEDS: heparin 5,000 unit/mL INJ 1 mL 5000 UNIT SUBCUT (17:47)
[2023-06-27] MEDS: budesonide 0.5 mg/2 mL Neb INHALATION (20:54)
[2023-06-27 21:15] LABS: Glucose Point of Care 179 mg/dL (70-110)
[2023-06-28] VITALS (11 sets, daily range): BP systolic 105–123; BP diastolic 63–72; PULSE 67–100; RESP 16–22; TEMP 36.4–37.1; O2SAT 91–98
[2023-06-28] MEDS: heparin 5,000 unit/mL INJ 1 mL 5000 UNIT SUBCUT ×2 (05:52→17:44)
[2023-06-28] MEDS: levoFLOXacin 500 mg Tablet PO (05:52)
[2023-06-28] MEDS: dilTIAZem ER (24HR) 180 mg Capsule PO (05:52)
[2023-06-28] MEDS: allopurinol 100 mg Tablet PO (05:52)
[2023-06-28] MEDS: fluoxetine 20 mg Capsule PO (05:52)
[2023-06-28] MEDS: remdesivir 100 MG in sodium chloride 0.9% (100 ml) 80 ML IV (05:57)
[2023-06-28] MEDS: ferrous sulfate EC 325 mg Tablet PO (08:45)
[2023-06-28] MEDS: pantoprazole DR 40 mg Tablet PO ×2 (08:45→17:44)
[2023-06-28] MEDS: amiodarone 200 mg Tablet PO (08:45)
[2023-06-28] MEDS: dexamethasone 4 mg Tablet 6 MG PO (08:45)
[2023-06-28] MEDS: HYDROcodone-acetaminophen 10-325 mg Tablet 1 TAB PO (08:50)
[2023-06-28 09:42] LABS: Basophils % 0.2 %; Hematocrit 30.1 % (36-47); Lymphocytes # 0.5 10^3/uL (0.8-4.8); Lymphocytes % 5.1 %; Mean Corpuscular HGB Conc 28.9 g/dL (30-55); Mean Corpuscular Hemoglobin 28.1 pg (27-33); Mean Corpuscular Volume 97.1 fl (85-98); Mean Platelet Volume 8.5 fL (7.4-10.4); Monocytes # 0.6 10^3/uL (0.2-0.9); Monocytes % 5.6 %; Neutrophils # 9.05 10^3/uL (1.8-7.7); Neutrophils % 88.2 %; Nucleated Red Blood Cells % 0 %; Platelet Count 294 10^3/cmm (157-399); Red Cell Distribution Width 16.1 % (12.1-15.1); White Blood Count 10.25 10^3/uL (3.29-11.43)
[2023-06-28 09:52] LABS: Alanine Aminotransferase 34 U/L (0-33); Albumin Level 2.9 g/dL (3.5-5.2); Alkaline Phosphatase 103 U/L (35-105); Anion Gap 8.9 (5-19); Aspartate Amino Transferase 18 U/L (0-32); Blood Urea Nitrogen 21 mg/dL (8-23); Calcium 10.2 mg/dL (8.5-10.5); Carbon Dioxide 37 mmol/L (22-29); Chloride 95 mmol/L (98-107); Globulin 3.1 g/dL (1.3-4.6); Glucose 154 mg/dL (65-115); Osmolality Calculated 290 mOsm/kg (285-295); Potassium 3.9 mmol/L (3.5-5.1); Sodium 137 mmol/L (136-145); Total Bilirubin 0.4 mg/dL (0.15-1.2)
[2023-06-28] MEDS: ipratropium-albuterol 3 mL Neb INHALATION ×3 (10:02→23:51)
[2023-06-28] MEDS: budesonide 0.5 mg/2 mL Neb INHALATION ×2 (10:03→23:51)
[2023-06-28 12:27] LABS: Glucose Point of Care 93 mg/dL (70-110)
--- NOTE | 2023-06-28 15:16 | PM.PN ---
Subjective Subjective: No acute events overnight. Today morning patient seen sitting up in chair. Denies any further complaints. Has remained hemodynamically stable and afebrile. Saturating well on her baseline oxygen supplementation. Blood work shows a stable CBC, CMP showing a stable creatinine and electrolytes at baseline. Vitals/I&O/Wt Last Vital Signs Temp 98.2 F 06/28/23 12:00 Pulse 67 06/28/23 14:00 Resp 20 H 06/28/23 14:00 BP 105/65 06/28/23 12:00 Pulse Ox 96 06/28/23 14:00 O2 Del Method Nasal Cannula 06/28/23 14:00 O2 Flow Rate 4 06/28/23 14:00 FiO2 36 06/27/23 21:02 06/28/23 06/28/23 06/28/23 06:59 14:59 22:59 Intake Total 100 / 1540 840 / 840 Balance 100 / 1540 840 / 840 Weight last 48 hrs Weight 83.733 kg Weight 84.822 kg Physical Exam Const: COMMON NORMALS: patient oriented x3 and alert GENERAL APPEARANCE: cooperative, ill appearing and frail appearing ORIENTATION/CONSCIOUSNESS: Yes awake HENMT: COMMON NORMALS: normocephalic, atraumatic and oropharynx normal HEAD & SCALP: normocephalic and atraumatic FACE & SINUS: normal facial exam and face symmetric NOSE: Normal nares present Eye: COMMON NORMALS: Equal, round and reactive pupils present and EOMs intact bilaterally PUPIL: Yes Equal, round and reactive pupils present Neck/C-Spine: COMMON NORMALS: no JVD GENERAL: Yes trachea midline Chest: CHEST: Yes Symmetrical chest wall rise Resp: COMMON NORMALS: normal respiratory effort EFFORT & INSPECTION: Yes tachypneic, Yes pursed lip breathing and Yes labored Cardio: COMMON NORMALS: no JVD, regular rhythm, S1 normal heart sound present, S2 normal heart sound present and No murmurs present (Cardio) RHYTHM: regular rhythm and abnormal rhythm irregularly irregular HEART SOUNDS: S1 normal heart sound present and S2 normal heart sound present GI: COMMON NORMALS: Normal to inspection, nondistended, normoactive bowel sounds present, Soft to palpation and non-tender PALPATION: Yes Soft to palpation Extremity: COMMON NORMALS: no joint enlargement and no pedal edema Neuro: COMMON NORMALS: patient oriented x3 and moves all extremities SENSORIUM/ORIENTATION: Yes alert Data 06/28/23 09:27 06/28/23 09:27 Micro: Microbiology 06/26/23 20:17 Gram Stain - Final Sputum - Expectorated Sputum Sputum Culture - Preliminary Gram Negative Rods A&P Assessment and plan (1) Respiratory failure with hypoxia and hypercapnia: Acute on chronic. In setting of COVID-19. (2) COVID-19: Hypoxia secondary to COVID-19 pneumonia: Mild disease. Oxygen supplementation keeping saturation over 88%. Dexamethasone 6 mg daily for overall 10 days. Remdesivir to finish a 3-5-day course. DuoNeb every 6 hour, budesonide twice daily Pulmonary toilet with incentive spirometry flutter valve. We will monitor inflammatory markers including CRP, D-dimer every 48 hours. (3) Weakness: Most likely in setting of COVID-19. Patient has had frequent hospitalization with the last 3 months for various reasons. Most recently for acute anemia from the patient with hematoma. Continue to monitor. Discussed in detail regarding further discharge planning with the patient. Discussed given frequent hospitalization, severe COPD and COVID-19 currently it would be safe for patient to be discharged to SNF. Patient states her daughter is also having cholecystectomy within next few days. She is agreeable. Case management alerted. 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 Oxygen supplementation with BiPAP with oxygen at night. Worsening secondary to COVID-19. Improving. Keep oxygen saturation over 88%. Pulmicort twice daily, DuoNebs every [address] imaging. Also noted some abnormality of carboxyhemoglobin, mild increase up to 3.5%, even though she is a non-smoker, and states does not have exposure to secondhand smoke. States she thinks she may not have carbon monoxide detectors at home as everything is electric, discussed with her and her daughter to obtain carbon monoxide detectors for additional monitoring. Carboxyhemoglobin certainly is not elevated but with her limited reserve may be contributing to her symptoms. (5) Rectus sheath hematoma: Recovering. Hemoglobin stable. Continue to hold off on anticoagulation for overall 14 days which will be till 07/05 (6) Anticoagulation adequate with anticoagulant therapy: (7) Vaginal mass: Will need to follow-up with SENIOR CENTER DIRECTOR as an outpatient for further work-up. Plan Status post cholecystectomy on 05/23. History of diastolic CHF: Patient does have bilateral lower extremity edema. IV Lasix 40 mg one-time. Atrial fibrillation: On Cardizem, amiodarone, off anticoagulation due to recent rectal sheath hematoma. Full code Carb consistent diet Heparin 5000 every 12 hourly for DVT prophylaxis Protonix for PUD prophylaxis. Plan for the day: Continue with aggressive pulmonary toilet. Continue with IV remdesivir and oral dexamethasone. Sputum culture growing gram-negative rods. Continue with oral Levaquin but will increase dose to 750 mg for 5 more days. Follow-up culture results and sensitivities. Stable hemoglobin. Plan to restart anticoagulation on 07/05. Will repeat CBC a week after initiation of anticoagulation. Continue with nebulization treatment. Discharge plan: Plan to discharge to SNF for further rehabilitation given recurrent admissions for various reasons, generalized weakness in setting of COVID-19, recent anemia from rectus sheath hematoma. Discussed in detail with the patient. She is agreeable. Case management alerted. Attestations Medical Necessity Statement*: Requires further hospitalization for management of acute on chronic hypoxic respiratory failure in setting of COVID-19, generalized weakness in setting of recurrent admissions within the last 3 months, recent rectus sheath hematoma on anticoagulation requiring blood transfusions Diagnoses Respiratory failure with hypoxia and hypercapnia J96.91; J96.92 COVID-19 U07.1 Weakness R53.1 Hypoxic episode R09.02 Rectus sheath hematoma S30.1XXA Anticoagulation adequate with anticoagulant therapy Z79.01 Vaginal mass N89.8
[2023-06-28 16:19] LABS: Glucose Point of Care 133 mg/dL (70-110)
[2023-06-28 20:22] LABS: Glucose Point of Care 183 mg/dL (70-110)
[2023-06-29] VITALS: BP 112/73; PULSE 72; RESP 16; TEMP 37; O2SAT 92
[2023-06-29 05:00] VITALS: BP 115/74; PULSE 74; RESP 16; TEMP 37; O2SAT 94
[2023-06-29] MEDS: levoFLOXacin 750 mg Tablet PO (05:52)
[2023-06-29] MEDS: allopurinol 100 mg Tablet PO (05:52)
[2023-06-29] MEDS: fluoxetine 20 mg Capsule PO (05:52)
[2023-06-29] MEDS: dilTIAZem ER (24HR) 180 mg Capsule PO (05:52)
[2023-06-29] MEDS: remdesivir 100 MG in sodium chloride 0.9% (100 ml) 80 ML IV (05:56)
[2023-06-29] MEDS: heparin 5,000 unit/mL INJ 1 mL 5000 UNIT SUBCUT (05:56)
[2023-06-29 06:24] LABS: Hematocrit 31.5 % (36-47); Lymphocytes # 0.5 10^3/uL (0.8-4.8); Mean Corpuscular HGB Conc 27.9 g/dL (30-55); Mean Corpuscular Hemoglobin 27.3 pg (27-33); Mean Corpuscular Volume 97.8 fl (85-98); Mean Platelet Volume 8.5 fL (7.4-10.4); Monocytes # 0.6 10^3/uL (0.2-0.9); Monocytes % 6.9 %; Neutrophils # 6.97 10^3/uL (1.8-7.7); Neutrophils % 85.9 %; Nucleated Red Blood Cells % 0 %; Platelet Count 256 10^3/cmm (157-399); Red Blood Count 3.22 10^6/uL (3.85-5.65); Red Cell Distribution Width 15.9 % (12.1-15.1); White Blood Count 8.12 10^3/uL (3.29-11.43)
[2023-06-29 06:43] LABS: Alanine Aminotransferase 36 U/L (0-33); Albumin Level 2.9 g/dL (3.5-5.2); Alkaline Phosphatase 99 U/L (35-105); Anion Gap 8.4 (5-19); Aspartate Amino Transferase 20 U/L (0-32); Blood Urea Nitrogen 20 mg/dL (8-23); Calcium 10.2 mg/dL (8.5-10.5); Carbon Dioxide 39 mmol/L (22-29); Chloride 95 mmol/L (98-107); Globulin 2.4 g/dL (1.3-4.6); Glucose 103 mg/dL (65-115); Osmolality Calculated 289 mOsm/kg (285-295); Potassium 4.4 mmol/L (3.5-5.1); Sodium 138 mmol/L (136-145); Total Bilirubin 0.6 mg/dL (0.15-1.2); Total Protein 5.3 g/dL (6.6-8.7)
[2023-06-29 07:30] LABS: Glucose Point of Care 103 mg/dL (70-110)
[2023-06-29] MEDS: budesonide 0.5 mg/2 mL Neb INHALATION (07:40)
[2023-06-29] MEDS: ipratropium-albuterol 3 mL Neb INHALATION (07:40)
[2023-06-29 07:42] VITALS: PULSE 89; RESP 18; O2SAT 100
[2023-06-29 07:50] VITALS: PULSE 79
[2023-06-29 08:00] VITALS: BP 123/67; PULSE 86; RESP 19; TEMP 36.6; O2SAT 92
[2023-06-29] MEDS: amiodarone 200 mg Tablet PO (09:15)
[2023-06-29] MEDS: dexamethasone 4 mg Tablet 6 MG PO (09:16)
[2023-06-29] MEDS: ferrous sulfate EC 325 mg Tablet PO (09:16)
[2023-06-29] MEDS: pantoprazole DR 40 mg Tablet PO (09:16)
--- NOTE | 2023-06-29 09:39 | PM.DCS ---
Discharge Providers Date of Admission: 06/26/23 13:35 Date of Discharge: June 29, 2023 Attending Provider at Admission: Matthew Garcia Attending Provider at Discharge: Kana Wills MD Primary Care Provider: Sylvia Anthony MD Diagnoses at Discharge Discharge Diagnosis (1) Respiratory failure with hypoxia and hypercapnia: Status: Acute (2) COVID-19: Status: Acute (3) Weakness: Status: Acute (4) Hypoxic episode: Status: Acute (5) Rectus sheath hematoma: Status: Acute (6) Anticoagulation adequate with anticoagulant therapy: Status: Acute Permanent problem details: Xarelto (7) Vaginal mass: Status: Acute Reason for Visit Reason for Visit: WEAKNESS Hospital Course Hospital Course Pleasant 73-year-old lady recently hospitalized due to rectus sheath hematoma, taken off anticoagulation which she was taking for atrial fibrillation, with ESBL Kleb UTI, was discharged with a course of Levaquin, with underlying COPD normally on 4 L of oxygen and uses BiPAP at night was not feeling well last night, something felt off and her oxygen saturation was reading 65%. She has felt weaker than before. She does bleed O2 into the machine. She was found to have COVID-19 on admission. She is started on treatment with IV remdesivir and oral dexamethasone. Patient's oxygen supplementation came back to baseline within 24 hours. Sputum culture came back positive for E. coli sensitive to Levaquin. Patient's hospitalization has been otherwise unremarkable. Her hemoglobin has remained stable. Given recurrent admissions for various reasons and significant COPD as baseline safe discharge plan was discussed in detail and patient is agreeable for a short-term placement to SNF for further rehabitation. She can discharge to SNF for further rehabitation on oral dexamethasone for 7 more days, oral Levaquin 70 mg for 5 more days. She is to restart her anticoagulation with Xarelto on 07/06. Repeat hemoglobin should be checked a week after starting Xarelto. Physical Exam Const: COMMON NORMALS: patient oriented x3 and alert GENERAL APPEARANCE: cooperative, ill appearing and frail appearing ORIENTATION/CONSCIOUSNESS: Yes awake HENMT: COMMON NORMALS: normocephalic, atraumatic and oropharynx normal HEAD & SCALP: normocephalic and atraumatic FACE & SINUS: normal facial exam and face symmetric NOSE: Normal nares present Eye: COMMON NORMALS: Equal, round and reactive pupils present and EOMs intact bilaterally PUPIL: Yes Equal, round and reactive pupils present Neck/C-Spine: COMMON NORMALS: no JVD GENERAL: Yes trachea midline Chest: CHEST: Yes Symmetrical chest wall rise Resp: COMMON NORMALS: normal respiratory effort EFFORT & INSPECTION: Yes tachypneic, Yes pursed lip breathing and Yes labored Cardio: COMMON NORMALS: no JVD, regular rhythm, S1 normal heart sound present, S2 normal heart sound present and No murmurs present (Cardio) RHYTHM: regular rhythm and abnormal rhythm irregularly irregular HEART SOUNDS: S1 normal heart sound present and S2 normal heart sound present GI: COMMON NORMALS: Normal to inspection, nondistended, normoactive bowel sounds present, Soft to palpation and non-tender PALPATION: Yes Soft to palpation Extremity: COMMON NORMALS: no joint enlargement and no pedal edema Neuro: COMMON NORMALS: patient oriented x3 and moves all extremities SENSORIUM/ORIENTATION: Yes alert Discharge Data Studies Completed and Pending Completed Studies During Hospitalization Category Date Time Status CTA PE [CT angio chest PE protcl [id number]] Routine Cat Scan 06/26/23 04:03 Completed XR chest 1V portable [id number] Stat Exams 06/26/23 01:14 [place] [id number] Routine Ultrasound 06/26/23 04:42 Completed Pending at discharge Category Date Time Status Sputum Culture and Gram Stain Routine Lab 06/26/23 20:17 Results Radiology Impressions Chest X-Ray 06/26/23 01:14 IMPRESSION: 1. The right central line has been removed. 2. Continued patchy bibasilar opacities which could represent atelectasis versus pneumonia. Chest CTA 06/26/23 04:03 IMPRESSION: 1. There is no evidence for pulmonary emboli. 2. Background of severe centrilobular emphysema and pulmonary fibrosis. 3. There are patchy ground-glass opacities that may represent an pulmonary fibrosis as well although superimposed interstitial pneumonitis cannot be excluded. 4. Mitral valve disease. COMMENTS: In the absence of a history or active diagnosis of lung cancer, it is recommended that this patient with emphysema be evaluated for enrollment in a low dose CT lung cancer screening program. Venous Duplex 06/26/23 04:42 IMPRESSION: 1. No evidence of deep vein thrombosis. 2. Acute superficial venous thrombosis of the right cephalic vein. Laboratory Results WBC 8.12 10^3/uL (3.29-11.43) 06/29/23 05:55 RBC 3.22 10^6/uL (3.85-5.65) L 06/29/23 05:55 Hgb 8.80 g/dL (11.27-16.99) L 06/29/23 05:55 Hct 31.5 % (36-47) L 06/29/23 05:55 MCV 97.8 fl (85-98) 06/29/23 05:55 MCH 27.3 pg (27-33) 06/29/23 05:55 MCHC 27.9 g/dL (30-55) L 06/29/23 05:55 RDW 15.9 % (12.1-15.1) H 06/29/23 05:55 Plt Count 256 10^3/cmm (157-399) 06/29/23 05:55 MPV 8.5 fL (7.4-10.4) 06/29/23 05:55 Neut % (Auto) 85.9 % 06/29/23 05:55 Lymph % (Auto) 6.0 % 06/29/23 05:55 Coal % (Auto) 6.9 % 06/29/23 05:55 Eos % (Auto) 0.0 % 06/29/23 05:55 Baso % (Auto) 0.0 % 06/29/23 05:55 Neut # (Auto) 6.97 10^3/uL (1.8-7.7) 06/29/23 05:55 Lymph # (Auto) 0.5 10^3/uL (0.8-4.8) L 06/29/23 05:55 Coal # (Auto) 0.6 10^3/uL (0.2-0.9) 06/29/23 05:55 Eos # (Auto) 0.0 10^3/uL (0.0-0.8) 06/29/23 05:55 Baso # (Auto) 0.0 10^3/uL (0.0-0.1) 06/29/23 05:55 Nucleated RBC % (auto) 0 % 06/29/23 05:55 Nucleated RBCs # 0.0 /100WBC 06/29/23 05:55 PT 12.90 SECONDS (12.1-14.9) 06/26/23 01:05 INR 0.95 (0.8-1.2) 06/26/23 01:05 APTT 22.2 SECONDS (23.9-36.7) L 06/26/23 01:05 Specimen Type Arterial 06/26/23 02:58 Sample Site Radial, right 06/26/23 02:58 ABG pH 7.39 (7.35-7.45) 06/26/23 02:58 ABG pCO2 68.2 mmHg (35-45) H* 06/26/23 02:58 ABG pO2 87.8 mmHg (80.0-100.0) 06/26/23 02:58 ABG HCO3 40.9 mmol/L (22-26) H 06/26/23 02:58 ABG Base Excess 13.9 mmol/L (-2.0-2.0) H 06/26/23 02:58 Michael Test Pos 06/26/23 02:58 Hematocrit 26.1 % (37-47) L 06/26/23 02:58 O2 Delivery Device Nc 06/26/23 02:58 O2 Liters/Min 5.0 % 06/26/23 02:58 Cutter Head Sharpener ID [email or web address] 06/26/23 02:58 Sodium 138 mmol/L (136-145) 06/29/23 05:55 Potassium 4.4 mmol/L (3.5-5.1) 06/29/23 05:55 Chloride 95 mmol/L (98-107) L 06/29/23 05:55 Carbon Dioxide 39 mmol/L (22-29) H 06/29/23 05:55 Anion Gap 8.4 (5-19) 06/29/23 05:55 BUN 20 mg/dL (8-23) 06/29/23 05:55 Creatinine 0.5 mg/dL (0.5-0.9) 06/29/23 05:55 GFR Calculation Not Reportable 06/29/23 05:55 Glucose 103 mg/dL (65-115) 06/29/23 05:55 POC Glucose 103 mg/dL (70-110) 06/29/23 06:31 Calculated Osmolality 289 mOsm/kg (285-295) 06/29/23 05:55 Lactic Acid 1.3 mmol/L (0.5-2.2) 06/26/23 01:05 Calcium 10.2 mg/dL (8.5-10.5) 06/29/23 05:55 Total Bilirubin 0.6 mg/dL (0.15-1.2) 06/29/23 05:55 AST 20 U/L (0-32) 06/29/23 05:55 ALT 36 U/L (0-33) H 06/29/23 05:55 Alkaline Phosphatase 99 U/L (35-105) 06/29/23 05:55 Creatine Kinase 20 U/L (26-192) L 06/26/23 03:43 Troponin T Baseline 28 ng/L (0-10) H 06/26/23 01:05 Troponin T 120 Minute 27.70 ng/L (0-10) H 06/26/23 03:43 Delta Troponin T -0.30 ABS# (0-10) L 06/26/23 03:43 Troponin T Hi Sens 6Hr 31.01 ng/L (0-10) H 06/26/23 09:15 Troponin T Hi Sens 6Hr Delta 3.01 ng/L (0-12) 06/26/23 09:15 NT-Pro-B Natriuret Pep 3325 pg/mL (0-125) H 06/26/23 01:05 Total Protein 5.3 g/dL (6.6-8.7) L 06/29/23 05:55 Albumin 2.9 g/dL (3.5-5.2) L 06/29/23 05:55 Globulin 2.4 g/dL (1.3-4.6) 06/29/23 05:55 TSH 3.49 uIU/mL (0.27-4.20) 06/26/23 03:43 Urine Color Dark yellow (Yellow) 06/26/23 11:43 Urine Appearance Sl hazy (CLEAR) A 06/26/23 11:43 Urine pH 5 (5-7) 06/26/23 11:43 Ur Specific [place] 1.015 (1.005-1.030) 06/26/23 11:43 Urine Protein Trace (Negative) 06/26/23 11:43 Urine Glucose (UA) Norm (Normal) 06/26/23 11:43 Urine Ketones Negative (Negative) 06/26/23 11:43 Urine Blood Neg (Negative) 06/26/23 11:43 Urine Nitrate Negative (Negative) 06/26/23 11:43 Urine Bilirubin Neg (Negative) 06/26/23 11:43 Urine Urobilinogen 4 mg/dL (Negative) H 06/26/23 11:43 Ur Leukocyte Esterase Trace (Negative) H 06/26/23 11:43 Urine RBC None /hpf (0-2) 06/26/23 11:43 Urine WBC 10-15 /hpf (0-5) H 06/26/23 11:43 Ur Squamous Epith Cells 5-10 /hpf (0-5) H 06/26/23 11:43 Amorphous Sediment Not Reportable 06/26/23 11:43 Urine Bacteria 1+ /hpf (NONE) H 06/26/23 11:43 Urine Mucus 1+ /hpf 06/26/23 11:43 Urine Yeast Trace /hpf 06/26/23 01:35 Nasal Influ A H1 2009 PCR Not detected (NOT DETECT) 06/26/23 03:27 Adenovirus (PCR) Not detected (NOT DETECT) 06/26/23 03:27 C. pneumoniae DNA (PCR) Not detected (NOT DETECT) 06/26/23 03:27 Coronavirus 229E (PCR) Not detected (NOT DETECT) 06/26/23 03:27 Human Metapneumovir PCR Not detected (NOT DETECT) 06/26/23 03:27 Influenza A (H1) PCR Not detected (NOT DETECT) 06/26/23 03:27 Influenza A (H3) PCR Not detected (NOT DETECT) 06/26/23 03:27 Influenza Type A (PCR) Not detected (NOT DETECT) 06/26/23 03:27 Influenza Type B (PCR) Not detected (NOT DETECT) 06/26/23 03:27 M. pneumoniae (PCR) Not detected (NOT DETECT) 06/26/23 03:27 Parainfluenza 1 (PCR) Not detected (NOT DETECT) 06/26/23 03:27 Parainfluenza 2 (PCR) Not detected (NOT DETECT) 06/26/23 03:27 Parainfluenza 3 (PCR) Not detected (NOT DETECT) 06/26/23 03:27 Parainfluenza 4 (PCR) Not detected (NOT DETECT) 06/26/23 03:27 RSV Type A (PCR) Not detected (NOT DETECT) 06/26/23 03:27 RSV Type B (PCR) Not detected (NOT DETECT) 06/26/23 03:27 Entero/Rhino (PCR) Not detected (NOT DETECT) 06/26/23 03:27 SARS-CoV-2 (PCR) Detected (NOT DETECT) A 06/26/23 03:27 Blood Type O Positive 06/26/23 01:29 Rho(D) Type Positive 06/26/23 01:29 Antibody Screen Negative 06/26/23 01:29 Vitals Last Vital Signs Temp 97.8 F 06/29/23 08:00 Pulse 86 06/29/23 08:00 Resp 19 H 06/29/23 08:00 BP 123/67 06/29/23 08:00 Pulse Ox 92 06/29/23 08:00 O2 Del Method Nasal Cannula 06/29/23 08:00 O2 Flow Rate 4 06/29/23 07:42 FiO2 36 06/28/23 23:55 Discharge Plan Discharge Patient Disposition: Xfer SNF Condition: Fair Prescriptions: New benzonatate 100 mg Capsule 100 mg PO TID PRN (Reason: Cough) Qty: 10 0RF dexamethasone 4 mg Tablet 6 mg PO DAILY 7 Days Qty: 11 0RF levofloxacin 750 mg Tablet 750 mg PO DAILY@0600 Qty: 5 0RF Continued allopurinol 100 mg tablet 100 mg PO QAM albuterol sulfate 90 mcg/actuation HFA aerosol inhaler 2 puff INHALATION Q6H PRN (Reason: Shortness Of Breath) (DME) custom molded accommodative orthotic See Rx Instructions .ROUTE .MEDSUPPLY Qty: 1 0RF Rx Instructions: As directed albuterol sulfate 2.5 mg /3 mL (0.083 %) solution for nebulization 2.5 mg INHALATION Q4H PRN (Reason: Shortness Of Breath) amiodarone 200 mg tablet 200 mg PO DAILY Qty: 90 1RF (DME) oxygen-air delivery systems Device See Rx Instructions .Route Rx Instructions: 4 Liters per NC (DME) Diabetic Shoes with 3 pairs of inserts See Rx Instructions .Route .MEDSUPPLY Qty: 1 0RF Rx Instructions: As directed by [facility] Aerosphere 160-9-4.8 mcg/actuation HFA aerosol inhaler 2 inh inhalation BID Qty: 10.7 3RF multivitamin Tablet 1 tab PO QAM tolterodine 2 mg capsule,extended release 24hr 2 mg PO QAM diltiazem HCl 180 mg capsule,extended release 24hr 180 mg PO QAM omeprazole 40 mg capsule,delayed release(DR/EC) 40 mg PO BID hydrocodone-acetaminophen 10-325 mg tablet 1 tab PO Q6H PRN (Reason: pain) Qty: 20 0RF Rx Instructions: May take half of a tab at a time ondansetron 4 mg tablet,disintegrating 4 mg PO Q6H PRN (Reason: nausea and vomiting) Qty: 14 0RF triamcinolone acetonide 0.1 % Cream 1 applic TOPICAL QID PRN (Reason: unknown) Iron (ferrous sulfate) 325 mg (65 mg iron) Tablet 325 mg PO DAILY nystatin 100,000 unit/gram Cream 1 applic TOPICAL BID PRN (Reason: yeast) docusate sodium 100 mg Capsule 100 mg PO BID PRN (Reason: Constipation) mupirocin 2 % Ointment 1 applic TOPICAL BID PRN (Reason: unknown) fluoxetine 40 mg capsule 40 mg PO DAILY Changed potassium chloride 10 mEq capsule, extended release 10 meq PO DAILY Qty: 30 0RF Lasix 20 mg tablet 20 mg PO DAILY Qty: 30 0RF Held Xarelto 20 mg Tablet 20 mg PO DAILY Hold Instructions: Resume on 07/06/23. Rx Instructions: must administer with evening meal Discontinued metformin 500 mg tablet 500 mg PO QAM gabapentin 100 mg capsule 100 mg PO BEDTIME levofloxacin 500 mg Tablet 500 mg PO DAILY@0600 Qty: 5 0RF Rx Instructions: rx written 06/21/23 Discharge Orders: Discharge Order (Routine); Ordered 06/29/23 Ordered By: Kana Wills Referrals: Sylvia Anthony MD [Primary Care Provider] - 7-10 days MIROSLAVA SCHNEIDER [Occupational Therapist] - Discharge Diet: Regular and Cardiac Discharge Activity: Resume usual activity and Increase activity as tolerated Patient Instructions: Benzonatate (By mouth), Levofloxacin (By mouth), Dexamethasone (By mouth), Opioid Safety Activity Restrictions/Additional Instructions: Continue using her nebulizations as before. Dose of Lasix has been changed to 40 mg once daily along with potassium at 10 mEq once daily. You should be on dexamethasone which is a steroid for next 7 days. Take Levaquin 750 mg for next 5 days. Anticoagulation with Xarelto should restart on 07/06. Hemoglobin should be checked a week after restarting anticoagulation. You should follow-up with chief sustainability officer for further evaluation of vaginal mass. Discharge Attestations Time Spent in Discharge Care*: greater than 30 min Specific Discharge Activities: educating patient, discussing with pcp/other providers, discussing with casey saw operator/social workers/dc planners, documenting/other paperwork and evaluating patient/reviewing data Status at Discharge: Cognitive status at discharge: cognitively intact, Behavioral status at discharge: cooperative, Functional status at discharge: other assisted ambulation, Overall status at discharge: patient is back to baseline Quality Metrics Clinical Quality Measures [ No reported AMI, CVA or VTE this stay] Coding Level of Care Code 24405 Total time (in minutes) for Discharge: 50 Diagnoses Respiratory failure with hypoxia and hypercapnia J96.91; J96.92 COVID-19 U07.1 Weakness R53.1 Hypoxic episode R09.02 Rectus sheath hematoma S30.1XXA Anticoagulation adequate with anticoagulant therapy Z79.01 Vaginal mass N89.8
[2023-06-29] MEDS: lanolin oint 7 gm 1 APPLIC TOPICAL (10:06)
[2023-06-29 11:04] LABS: Glucose Point of Care 99 mg/dL (70-110)
--- NOTE | 2023-06-29 12:29 | PC.NURSE ---
Called report to Umu Hagan LPN at [facility].
[2023-06-29 13:38] VITALS: BP 123/67; PULSE 86; RESP 19; TEMP 36.6; O2SAT 92
--- NOTE | 2023-06-29 13:46 | PC.SOCIAL ---
Pg 2 IMM Explained to pt Pg 2 IMM. No questions voiced. Provided pt a copy. Initialed, dated, & timed a copy & placed in chart.
== END 2023-06-29 13:06 | disposition skilled nursing facility (03) | DRG 177 ==
LOC: ER 02:48 → MEDSURG 03:40
PROVIDERS: Internal Medicine; Admitting Provider Internal Medicine; Emergency Provider Emergency Medicine; PCP Family Medicine; Visit Provider Student in an Organized Health Care Education/Training Program
DX: U07.1 COVID-19 (principal); J18.9 Pneumonia, unspecified organism; J96.92 Respiratory failure, unspecified with hypercapnia; N39.0 Urinary tract infection, site not specified; I50.30 Unspecified diastolic (congestive) heart failure; I11.0 Hypertensive heart disease with heart failure; Z79.01 Long term (current) use of anticoagulants; N89.8 Other specified noninflammatory disorders of vagina; I48.91 Unspecified atrial fibrillation; B96.1 Klebsiella pneumoniae [K. pneumoniae] as the cause of diseases classified elsewhere; Z99.81 Dependence on supplemental oxygen; J44.9 Chronic obstructive pulmonary disease, unspecified; E11.40 Type 2 diabetes mellitus with diabetic neuropathy, unspecified; M15.9 Polyosteoarthritis, unspecified; K21.9 Gastro-esophageal reflux disease without esophagitis
CPT/HCPCS: 36415; 36416; 36600; 71045; 71275; 80053; 81001; 82550; 82803; 82962; 83605; 83880; 84443; 84484; 85025; 85610; 85730; 86850; 86900; 87070; 87077; 87186; 87205; 87486; 87581; 87633; 90471; 90686; 93005; 93971; 94640; 94660; 96372; 97110; 97163; 97165; 97530; 97535; 99285; G0378; J0248; J1644; J1940; J7626; J8540; Q9967

== ENCOUNTER 2023-07-13 09:04 | Inpatient (IN) | payer MEDICARE, OTHER, MEDICAID, SELFPAY ==
[2023-07-13] VITALS (119 sets, daily range): BP systolic 87–164; BP diastolic 48–91; PULSE 65–89; RESP 10–45; TEMP 36–36.7; O2SAT 83–98; BMI 43.4; BMI 44.1
--- NOTE | 2023-07-13 09:09 | XR_ITS ---
WS: [id number] Exam: XR chest 1V portable [id number] Date/Time of Exam: 07/13/2023 9:11 AM Reason For Exam: dyspnea/cough Comparison 06/26/2023. Increasing interstitial and airspace infiltrates noted throughout both lungs. Cardiac enlargement unc hanged. No pleural effusions or pneumothorax. The mediastinum is normal in contour. Calcification of the mitral valve annulus. Bony structures are intact. IMPRESSION: 1. Increasing interstitial and airspace infiltrates throughout both lungs since the previous study. 2. Cardiac enlargement unchanged.
--- NOTE | 2023-07-13 09:09 | ECG_ITS ---
[facility] Test Date: 2023-07-13 Pat Name: Arielle Cooper Department: Room: Gender: Female Business Objects Architect: : [id number] Requested By: Donavan Abarca Order Number: [id number] [place] MD: Franc Sears M.D. Measurements Intervals [place] Rate: 87 P: 0 [place]: 0 QRS: -40 QRSD: 105 T: 83 QT: 365 QTc: 440 Interpretive Statements ATRIAL FIBRILLATION LEFT AXIS DEVIATION [QRS AXIS < -30] PATTERN CONSISTENT WITH PULMONARY DISEASE Compared to ECG 06/26/2023 07:30:40 Left-axis deviation now present Intraventricular conduction delay no longer present Electronically Signed On 07-13-2023 15:11:16 ORGANIZATIONAL EFFECTIVENESS DIRECTOR by Franc Sears M.D. [id number] f
--- NOTE | 2023-07-13 09:22 | CT_ITS ---
WS: [id number] CTA OF THE CHEST WITH PULMONARY EMBOLISM PROTOCOL TECHNIQUE: High-resolution contrast enhanced CTA of the chest with coronal and sagittal reformatted i mages with pulmonary embolism protocol. MIP images are also reviewed. CLINICAL INFORMATION: dyspena, recent covid COMPARISON: CTA 06/26/2023 DLP: 632.[address] scans at [facility] use at least one of these dose optimization techniques: automated e xposure control; mA and/or kV adjustment per patient size (includes targeted exams where dose is matc hed to clinical indication); or iterative reconstruction. FINDINGS: Chronic emphysematous changes with pulmonary fibrosis unchanged from previous. Small RIGHT pleural ef fusion. Compressive atelectasis RIGHT lower lobe. Bilateral hazy groundglass infiltrates can be seen with COVID pneumonia. Infiltrates appear progressed compared to 06/26/2023. Proximal main pulmonary arteries are normal. Normal segmental and subsegmental pulmonary arteries. No evidence of pulmonary embolus. Normal caliber thoracic aorta. Aortic calcification. Coronary calcification. Mild thoracic kyphosis. Small esophageal hiatal hernia. Splenic artery calcification. IMPRESSION: 1. No evidence of pulmonary embolus. 2. Progressed bilateral diffuse pulmonary infiltrates with groundglass opacities suspicious for COVI D-pneumonia. Background of chronic emphysema and interstitial fibrosis. 3. Small RIGHT pleural effusion with compressive atelectasis RIGHT lower lobe progressed compared to previous.
--- NOTE | 2023-07-13 09:22 | W.ED.SOB ---
HPI - SOB/Dyspnea General: Chief Complaint: Shortness of Breath/Dyspnea Stated Complaint: COPD, SOB Time Seen by Provider: 07/13/23 09:07 Source: patient Mode of arrival: ambulatory History of Present Illness: HPI Narrative: 73-year-old female presents to the emergency room with complaints of shortness of breath and cough. She tested positive for COVID on 1029 while in the hospital after being evaluated for rectus sheath hematoma at that time her anticoagulant was stopped she did increasing shortness of breath and hypoxia noted she normally is on supplemental oxygen at 4 L by nasal cannula was increased today because of hypoxia. On arrival here is hypoxic in the mid to upper 80s. MD elicited complaint: shortness of breath and cough Pertinent past history: COPD Exacerbating factors: exertion and coughing Relieving factors: oxygen, rest and bronchodilators Associated symptoms: Reports chest congestion, cough and fever(s); Deny abdominal pain, chest pain, diaphoresis, dizziness, extremity pain, hemoptysis, lightheadedness, myalgias, nausea, orthopnea, palpitations, paresthesias, polydipsia, polyuria, rash, sense of impending doom, syncope or vomiting Treatment prior to arrival: oxygen Review of Systems Const: Reports: fever(s) and chills; Denies: diaphoresis Card: Denies: chest pain, palpitations, lightheadedness, syncope or orthopnea Resp: Reports: dyspnea, non-productive cough and chest congestion; Denies: hemoptysis GI: Denies: abdominal pain, nausea or vomiting : Denies: dysuria, urinary frequency or urinary urgency Musc: Denies: extremity pain Skin/Breast: Denies: rash Neuro: Denies: dizziness Endo: Denies: polyuria or polydipsia PFS ED PFSH: Medical History (Updated 07/13/23 @ 14:10 by Donavan Fry DO) A-fib Diagnosed in [address] Sears/Dr. Gonzales Anticoagulation adequate with anticoagulant therapy Xarelto Bacteremia CHF (congestive heart failure) Chronic anticoagulation COPD (chronic obstructive pulmonary disease) sees Dr. Turner. CVA (cerebral vascular accident) Diabetes Diagnosed in 2012 and is managed by PMD Diabetic peripheral neuropathy associated with type 2 diabetes mellitus E. coli septicemia Essential hypertension Diagnosed in 2004 and is on medication managed by PMD Gout Diagnosed in 2010 Morbid obesity No pertinent past medical history Denies seizures, DVT/PE PCP: Dr. Anthony Onychodystrophy Osteoarthritis of knees, bilateral Osteoarthritis of right hip Oxygen dependent Since 1999. Psoriasis Diagnosed in 2011--not on any medication--sees Dr. Michael Septic shock Sleep apnea Thrombocytopenia Surgical History S/P appendectomy Performed in [address] Malik at [facility] in [place], [place] S/P carpal tunnel release Carpal tunnel release on the right side, performed in [address] Moody at [place], [place] Carpal tunnel release on the left side, performed in [address] Medina at [place], [place] S/P cataract surgery Removal of cataract from the left eye in February [address] Ruby in [place], [place] Removal of cataract from the right eye in April [address] Ruby in [place], [place] S/P dilation and curettage Performed in [address] Jones at [place], [place] S/P excision of lipoma Excision of Lipoma from the breast, performed in [address] Shelton at [facility] in [place], [place] Excision of Lipoma from the left breast, performed 11/22/[address] Agrawal at [facility] in [place], [place] S/P hysterectomy Vaginal procedure---thinks that her ovaries were removed---performed in February [address] Jones at [place], [place] S/P partial thyroidectomy Performed in [address] Shelton at [facility] in [place], [place] S/P thoracotomy Performed in 2001 S/P tonsillectomy Performed in [address] Malik at [facility] in [place], [place] S/P trigger finger release Bilateral, performed in [address] Chaney at [place], [place] S/P tubal ligation Laparoscopic procedure---performed in [address] Malik at [facility] in [place], [place] Status post laparoscopic cholecystectomy Status post lumbar surgery Lumbar surgery at L3/L4, performed in 1975 at [facility] Status post total hip replacement, right Right side---performed 07/08/[address] Keith at [facility] in [place], [place] Family History Father Diabetes Heart disease Sister Heart disease Breast cancer diagnosed in her 40s Denies family history of Colon cancer Ovarian cancer Hyperlipidemia Hypertension Uterine cancer Thyroid disease Stroke Social History (Updated 07/13/23 @ 11:50 by Los Anthony MD) Smoking and tobacco/nicotine status: former use of tobacco/nicotine Substance/Drug Use: never Do you think of yourself as: Straight/Heterosexual Physical Exam Const: GENERAL APPEARANCE: cooperative ORIENTATION/CONSCIOUSNESS: Yes awake HENMT: COMMON NORMALS: normocephalic, atraumatic and hearing grossly normal bilaterally HEAD & SCALP: normocephalic and atraumatic Resp: COMMON NORMALS: normal respiratory effort, No retractions and No use of accessory muscles AUSCULTATION: rhonchi and wheezes Cardio: COMMON NORMALS: regular rhythm and No murmurs present (Cardio) RATE: tachycardic RHYTHM: regular rhythm GI: COMMON NORMALS: Soft to palpation and No hepatosplenomegaly present AUSCULTATION: Yes normoactive bowel sounds PALPATION: Yes Soft to palpation, No Tenderness to palpation present (GI), No Guarding due to palpation present (GI) and Yes No hepatosplenomegaly present Extremity: COMMON NORMALS: normal to inspection, capillary refill normal, no clubbing, cyanosis or edema, no calf tenderness and no pedal edema Skin: COMMON NORMALS: no rashes or lesions noted GENERAL SKIN EXAM: no rashes or lesions noted Course Vital Signs: Vital signs: Vital Signs Temperature 98.1 F 07/13/23 09:06 Pulse Rate 69 07/13/23 14:00 Respiratory Rate 31 H 07/13/23 10:25 Blood Pressure 118/78 07/13/23 12:00 Pulse Oximetry 94 07/13/23 14:00 Oxygen Delivery Me thod BiPAP 07/13/23 12:35 Oxygen Flow Rate 6 07/13/23 09:32 Fraction of Inspir ed Oxygen 40 07/13/23 14:00 MDM - SOB/Dyspnea Medical Decision Making Pneumonia more prominent on the right the CTA of the chest shows bilateral groundglass infiltrates no PE. Will cover for secondary pneumonia. She is improved on BiPAP all though her carbon dioxide is still elevated it is slightly improved. Discussed with hospitalist will admit to ICU orders written Medical Records I reviewed the patient's medical records. Lab Data I reviewed the patient's lab results. 07/13/23 09:18 07/13/23 09:18 Labs/Radiology: Laboratory Results WBC 8.66 10^3/uL (3.29-11.43) 07/13/23 09:18 RBC 3.68 10^6/uL (3.85-5.65) L 07/13/23 09:18 Hgb 10.20 g/dL (11.27-16.99) L 07/13/23 09:18 Hct 35.9 % (36-47) L 07/13/23 09:18 MCV 97.6 fl (85-98) 07/13/23 09:18 MCH 27.7 pg (27-33) 07/13/23 09:18 MCHC 28.4 g/dL (30-55) L 07/13/23 09:18 RDW 15.5 % (12.1-15.1) H 07/13/23 09:18 Plt Count 194 10^3/cmm (157-399) 07/13/23 09:18 MPV 9.0 fL (7.4-10.4) 07/13/23 09:18 Neut % (Auto) 84.4 % 07/13/23 09:18 Lymph % (Auto) 4.4 % 07/13/23 09:18 [place] % (Auto) 9.7 % 07/13/23 09:18 Eos % (Auto) 0.9 % 07/13/23 09:18 Baso % (Auto) 0.1 % 07/13/23 09:18 Neut # (Auto) 7.31 10^3/uL (1.8-7.7) 07/13/23 09:18 Lymph # (Auto) 0.4 10^3/uL (0.8-4.8) L 07/13/23 09:18 [place] # (Auto) 0.8 10^3/uL (0.2-0.9) 07/13/23 09:18 Eos # (Auto) 0.1 10^3/uL (0.0-0.8) 07/13/23 09:18 Baso # (Auto) 0.0 10^3/uL (0.0-0.1) 07/13/23 09:18 Nucleated RBC % (auto) 0 % 07/13/23 09:18 Nucleated RBCs # 0.0 /100WBC 07/13/23 09:18 Specimen Type Arterial 07/13/23 10:55 Sample Site Brachial, left 07/13/23 10:55 ABG pH 7.33 (7.35-7.45) L 07/13/23 10:55 ABG pCO2 81.1 mmHg (35-45) H* 07/13/23 10:55 ABG pO2 51.7 mmHg (80.0-100.0) L 07/13/23 10:55 ABG PO2/FiO2 Ratio 0 07/13/23 10:55 ABG HCO3 42.4 mmol/L (22-26) H 07/13/23 10:55 ABG O2 Saturation 86.2 07/13/23 10:55 ABG Base Excess 13.7 mmol/L (-2.0-2.0) H 07/13/23 10:55 Michael Test N/a 07/13/23 10:55 A-a O2 Gradient 18.3 mmHg (5-10) H 07/13/23 10:55 Hematocrit 31.2 % (37-47) L 07/13/23 10:55 Hgb O2 Saturation 83.5 % (95-100) L 07/13/23 10:55 Carboxyhemoglobin 2.7 %THgb (0.4-20.1) 07/13/23 10:55 Methemoglobin 0.4 % (0.4-1.5) 07/13/23 10:55 Total Hemoglobin 10.2 g/dL (12-16) L 07/13/23 10:55 Sodium 138.0 mmol/L (131-143) 07/13/23 10:55 Potassium 4.6 mmol/L (3.5-5.0) 07/13/23 10:55 Glucose 170.0 mg/dL (70-115) H 07/13/23 10:55 Ionized Calcium 1.3 mmol/L (1.1-1.4) 07/13/23 10:55 O2 Delivery Device Bipap 07/13/23 10:55 O2 Liters/Min 5.0 % 07/13/23 09:33 FiO2 40.0 % 07/13/23 10:55 Flare Stitcher ID Amh 07/13/23 10:55 Sodium 137 mmol/L (136-145) 07/13/23 09:18 Potassium 4.9 mmol/L (3.5-5.1) 07/13/23 09:18 Chloride 94 mmol/L (98-107) L 07/13/23 09:18 Carbon Dioxide 35 mmol/L (22-29) H 07/13/23 09:18 Anion Gap 12.9 (5-19) 07/13/23 09:18 BUN 19 mg/dL (8-23) 07/13/23 09:18 Creatinine 0.5 mg/dL (0.5-0.9) 07/13/23 09:18 GFR Calculation Not Reportable 07/13/23 09:18 Glucose 197 mg/dL (65-115) H 07/13/23 09:18 Calculated Osmolality 292 mOsm/kg (285-295) 07/13/23 09:18 Calcium 9.6 mg/dL (8.5-10.5) 07/13/23 09:18 Total Bilirubin 0.7 mg/dL (0.15-1.2) 07/13/23 09:18 AST 24 U/L (0-32) 07/13/23 09:18 ALT 44 U/L (0-33) H 07/13/23 09:18 Alkaline Phosphatase 124 U/L (35-105) H 07/13/23 09:18 Troponin T Baseline 31 ng/L (0-10) H 07/13/23 09:18 Troponin T 120 Minute 29.57 ng/L (0-10) H 07/13/23 11:24 Delta Troponin T -1.43 ABS# (0-10) L 07/13/23 11:24 NT-Pro-B Natriuret Pep 2252 pg/mL (0-125) H 07/13/23 09:18 NT-Pro-B Natriuret Pep Cancelled 07/13/23 09:18 Total Protein 5.4 g/dL (6.6-8.7) L 07/13/23 09:18 Albumin 3.2 g/dL (3.5-5.2) L 07/13/23 09:18 Globulin 2.2 g/dL (1.3-4.6) 07/13/23 09:18 Urine Color Lou (Yellow) 07/13/23 10:25 Urine Appearance Sl hazy (CLEAR) A 07/13/23 10:25 Urine pH 6 (5-7) 07/13/23 10:25 Ur Specific [place] 1.025 (1.005-1.030) 07/13/23 10:25 Urine Protein Trace (Negative) 07/13/23 10:25 Urine Glucose (UA) Norm (Normal) 07/13/23 10:25 Urine Ketones Negative (Negative) 07/13/23 10:25 Urine Blood Neg (Negative) 07/13/23 10:25 Urine Nitrate Negative (Negative) 07/13/23 10:25 Urine Bilirubin 1+ (Negative) H 07/13/23 10:25 Urine Urobilinogen 8 mg/dL (Negative) H 07/13/23 10:25 Ur Leukocyte Esterase Negative (Negative) 07/13/23 10:25 Urine RBC 15-25 /hpf (0-2) H 07/13/23 10:25 Urine WBC 10-15 /hpf (0-5) H 07/13/23 10:25 Ur Squamous Epith Cells 0-4 /hpf (0-5) H 07/13/23 10:25 Ur Transition Epith Cell 0-4 /hpf 07/13/23 10:25 Amorphous Sediment Trace /hpf 07/13/23 10:25 Urine Bacteria Trace /hpf (NONE) 07/13/23 10:25 Urine Mucus 2+ /hpf 07/13/23 10:25 All radiology interpretation(s) finalized by discharge Discharge Plan Discharge Patient Disposition: Admitted As Inpatient Admit Provider: Los Anthony Clinical Impression: Respiratory failure with hypoxia and hypercapnia, Diabetes, Essential hypertension, CHF (congestive heart failure), COVID-19, Pneumonia, Hemoptysis, Community acquired pneumonia, Acute exacerbation of chronic obstructive airways disease Condition: Stable Coding Level of Care Code ED E Learning Specialist for Belkys Herrera
[2023-07-13 09:25] LABS: Basophils % 0.1 %; Eosinophils # 0.1 10^3/uL (0.0-0.8); Eosinophils % 0.9 %; Hematocrit 35.9 % (36-47); Lymphocytes # 0.4 10^3/uL (0.8-4.8); Lymphocytes % 4.4 %; Mean Corpuscular HGB Conc 28.4 g/dL (30-55); Mean Corpuscular Hemoglobin 27.7 pg (27-33); Mean Corpuscular Volume 97.6 fl (85-98); Monocytes # 0.8 10^3/uL (0.2-0.9); Monocytes % 9.7 %; Neutrophils # 7.31 10^3/uL (1.8-7.7); Neutrophils % 84.4 %; Nucleated Red Blood Cells % 0 %; Platelet Count 194 10^3/cmm (157-399); Red Blood Count 3.68 10^6/uL (3.85-5.65); Red Cell Distribution Width 15.5 % (12.1-15.1); White Blood Count 8.66 10^3/uL (3.29-11.43)
[2023-07-13] MEDS: ipratropium-albuterol 3 mL Neb INHALATION ×4 (09:31→23:50)
[2023-07-13 09:45] LABS: ABG PH Result 7.31 (7.35-7.45); Alveolar-Arterial Oxygen Gradi 16.3 mmHg (5-10); Arterial Blood Gas Hematocrit 32.3 % (37-47); Base Excess ABG 13.3 mmol/L (-2.0-2.0); Blood Gas Allen Test Pos; Blood Gas Operator Identificat AMH; Blood Gas Sample Site Radial, left; Blood Gas Sample Type Arterial; Carboxyhemoglobin 2.6 %THgb (0.4-20.1); HCO3 ABG 42.4 mmol/L (22-26); Ionized Calcium Level - ABG 1.4 mmol/L (1.1-1.4); Methemoglobin 0.4 % (0.4-1.5); Oxygen Device NC; Oxygen Saturation ABG 91.8; PO2 ABG 63.9 mmHg (80.0-100.0); PO2 FiO2 Ratio Arterial Blood 0; Potassium Level - ABG 4.5 mmol/L (3.5-5.0); Total Hemoglobin 10.5 g/dL (12-16)
[2023-07-13] MEDS: piperacillin-tazobactam 3.375 GM in sodium chloride 0.9% (plus) 50 ML IV (09:58)
[2023-07-13] MEDS: dexamethasone 10 mg/mL INJ IM (09:59)
[2023-07-13 10:00] LABS: Troponin(5th) Baseline 31 ng/L (0-10)
--- NOTE | 2023-07-13 10:03 | PC.PHAR ---
MEDICATIONS VERIFIED USING MED LIST FROM [facility]
[2023-07-13 10:15] LABS: Alanine Aminotransferase 44 U/L (0-33); Albumin Level 3.2 g/dL (3.5-5.2); Alkaline Phosphatase 124 U/L (35-105); Blood Urea Nitrogen 19 mg/dL (8-23); Calcium 9.6 mg/dL (8.5-10.5); Carbon Dioxide 35 mmol/L (22-29); Chloride 94 mmol/L (98-107); Globulin 2.2 g/dL (1.3-4.6); Glucose 197 mg/dL (65-115); NT Pro B Type Natriuretic Pept 2252 pg/mL (0-125); Osmolality Calculated 292 mOsm/kg (285-295); Sodium 137 mmol/L (136-145); Total Bilirubin 0.7 mg/dL (0.15-1.2); Total Protein 5.4 g/dL (6.6-8.7)
[2023-07-13 10:31] LABS: Anion Gap 12.9 (5-19); Aspartate Amino Transferase 24 U/L (0-32); Potassium 4.9 mmol/L (3.5-5.1)
[2023-07-13 10:39] LABS: Urine Color Amber (Yellow)
[2023-07-13 10:40] LABS: Add Urine Microscopic? YES; Bilirubin Urine 1+ (Negative); Blood Urine Neg (Negative); Glucose Urine UA Norm (Normal); Ketones Urine Negative (Negative); Leukocyte Esterase Urine Negative (Negative); Nitrate Urine Negative (Negative); Protein Urine Trace (Negative); Specific Gravity, Urine 1.025 (1.005-1.030); Urine Appearance SL Hazy (CLEAR); Urobilinogen Urine 8 mg/dL (Negative); pH Urine 6 (5-7)
[2023-07-13] MEDS: iohexol 350 mg/mL 500 mL Btl (per mL) IV (10:51)
[2023-07-13 10:56] LABS: Amorphous Sediment Urine TRACE /hpf; Bacteria Urine TRACE /hpf; Mucus Urine 2+ /hpf; RBC Urine 15-25 /hpf (0-2); Squamous Epithelial Cell Urine 0-4 /hpf (0-5); Transitional Epi Cells Urine 0-4 /hpf
[2023-07-13 11:01] LABS: Add Urine Culture? No
[2023-07-13 11:06] LABS: ABG PH Result 7.33 (7.35-7.45); Alveolar-Arterial Oxygen Gradi 18.3 mmHg (5-10); Arterial Blood Gas Hematocrit 31.2 % (37-47); Base Excess ABG 13.7 mmol/L (-2.0-2.0); Blood Gas Operator Identificat AMH; Blood Gas Sample Site Brachial, left; Blood Gas Sample Type Arterial; Carboxyhemoglobin 2.7 %THgb (0.4-20.1); HCO3 ABG 42.4 mmol/L (22-26); HGB O2 Sat 83.5 % (95-100); Ionized Calcium Level - ABG 1.3 mmol/L (1.1-1.4); Methemoglobin 0.4 % (0.4-1.5); Oxygen Device BIPAP; Oxygen Saturation ABG 86.2; PO2 ABG 51.7 mmHg (80.0-100.0); PO2 FiO2 Ratio Arterial Blood 0; Potassium Level - ABG 4.6 mmol/L (3.5-5.0); Total Hemoglobin 10.2 g/dL (12-16)
--- NOTE | 2023-07-13 11:11 | ECG_ITS ---
[facility] Test Date: 2023-07-13 Pat Name: Arielle Cooper Department: Room: Gender: Female Cone Winder: : 1950 Requested By: Donavan Abarca Order Number: [id number] Rocky MD: Franc Sears M.D. Measurements Intervals [place] Rate: 68 P: 0 [place]: 0 QRS: -42 QRSD: 100 T: 65 QT: 414 QTc: 442 Interpretive Statements ATRIAL FIBRILLATION LEFT AXIS DEVIATION [QRS AXIS < -30] PATTERN CONSISTENT WITH PULMONARY DISEASE Compared to ECG 07/13/2023 09:06:53 No significant changes Electronically Signed On 07-13-2023 15:12:33 BAKER HELPER by Franc Sears M.D. [id number]
[2023-07-13 11:21] LABS: ABG PCO2 81.1 mmHg (35-45)
--- NOTE | 2023-07-13 11:46 | PM.HP ---
Providers/Chief Complaint Admitting Physician: Los Anthony MD Primary Care Provider: Sylvia Anthony MD Chief Complaint: COPD, SOB History of Present Illness Arielle Cooper is a 73 year old female presenting from the group home with increasing shortness of breath. She reports she has had several episodes of hemoptysis. She was recently in the hospital for pneumonia, and UTI with ESBL. She had COVID at that time as well and a rectus sheath hematoma. She also had a superficial clot in her right upper extremity. At the nursing facility she reports increased shortness of breath this morning. She is typically on 4 L of oxygen. She has not been compliant with her CPAP lately secondary to cough and difficulty with lowering her oxygen saturations. She denies any chest pain. She reports no significant leg pain. There has been no vomiting, or diarrhea. Her Xarelto has been on hold, but it was restarted on the eighth. Review of Systems General: Reports: 10 or more systems reviewed and unremarkable except in HPI and below Card: Denies: chest pain Resp: Reports: dyspnea, productive cough and hemoptysis GI: Denies: abdominal pain, nausea, vomiting, hematochezia or melena Medications/Allergies Home Medications Medication Instructions Recorded Confirmed Last Taken Type allopurinol 100 mg tablet 100 mg PO QAM 10/12/19 07/13/23 07/13/23 History albuterol sulfate 90 mcg/actuation 2 puff inhalation Q6H PRN 05/09/20 07/13/23 05/23/23 07:00 History aerosol inhaler Shortness Of Breath albuterol sulfate 2.5 mg/3 mL 2.5 mg inhalation Q4H PRN 06/17/20 07/13/23 05/22/23 History (0.083 %) solution for nebulization Shortness Of Breath custom molded accommodative #1 ea 04/02/21 07/13/23 Unknown Rx orthotic oxygen-air delivery systems 01/27/22 07/13/23 Unknown History Diabetic Shoes with 3 pairs of #1 ea 08/10/22 07/13/23 Unknown Rx inserts budesonide 160 mcg-glycopyr 9 2 inh inhalation BID #10.7 grams 02/21/23 07/13/23 07/13/23 Rx mcg-formot 4.8 mcg/actuation HFA inhaler (Breztri Aerosphere) diltiazem HCl 180 mg 180 mg PO QAM 03/17/23 07/13/23 07/13/23 History capsule,extended release 24 hr multivitamin 1 tab PO QAM 03/17/23 07/13/23 07/13/23 History omeprazole 40 mg capsule,delayed 40 mg PO BID 03/17/23 07/13/23 07/13/23 History release tolterodine 2 mg capsule,extended 2 mg PO QAM 03/17/23 07/13/23 07/13/23 History release 24 hr ondansetron 4 mg disintegrating 4 mg PO Q6H PRN nausea and 05/16/23 07/13/23 1 Week Ago Rx tablet vomiting #14 tabs ~06/19/23 amiodarone 200 mg tablet 200 mg PO DAILY #90 tabs 05/19/23 07/13/23 07/13/23 Rx hydrocodone 10 mg-acetaminophen 1 tab PO Q6H PRN pain #20 tabs 05/23/23 07/13/23 07/13/23 Rx 325 mg tablet docusate sodium 100 mg capsule 100 mg PO BID PRN Constipation 06/26/23 07/13/23 Unknown History ferrous sulfate 325 mg (65 mg 325 mg PO DAILY 06/26/23 07/13/23 07/13/23 History iron) tablet (Iron (ferrous sulfate)) fluoxetine 40 mg capsule 40 mg PO DAILY 06/26/23 07/13/23 07/13/23 History mupirocin 2 % topical ointment 1 applic topical BID PRN unknown 06/26/23 07/13/23 Unknown History nystatin 100,000 unit/gram topical 1 applic topical BID PRN yeast 06/26/23 07/13/23 Unknown History cream rivaroxaban 20 mg tablet (Xarelto) 20 mg PO QPM 06/26/23 07/13/23 07/12/23 History triamcinolone acetonide 0.1 % 1 applic topical QID PRN unknown 06/26/23 07/13/23 Unknown History topical cream benzonatate 100 mg capsule 100 mg PO TID PRN Cough #10 caps 06/29/23 07/13/23 Unknown Rx furosemide 20 mg tablet (Lasix) 20 mg PO DAILY #30 tabs 06/29/23 07/13/23 07/13/23 Rx potassium chloride 10 mEq 10 meq PO DAILY #30 caps 06/29/23 07/13/23 07/13/23 Rx capsule,extended release amino acids-protein hydrolysate 11 1 ea PO BID 07/13/23 07/13/23 Unknown History gram-80 kcal/30 mL oral liquid (Pro-Stat Max) prednisone 10 mg tablet 40 mg PO DAILY 07/13/23 07/13/23 07/13/23 History Allergies Allergy/AdvReac Type Severity Reaction Status Date / Time adhesive tape Allergy ALGY-Hives Verified 07/13/23 09:14 PFSH Acute PFSH: Medical History (Updated 07/13/23 @ 12:03 by Los Anthony MD) A-fib Diagnosed in [address] Sears/Dr. Gonzales Anticoagulation adequate with anticoagulant therapy Xarelto Bacteremia CHF (congestive heart failure) Chronic anticoagulation COPD (chronic obstructive pulmonary disease) sees Dr. Turner. CVA (cerebral vascular accident) Diabetes Diagnosed in 2012 and is managed by PMD Diabetic peripheral neuropathy associated with type 2 diabetes mellitus E. coli septicemia Essential hypertension Diagnosed in 2004 and is on medication managed by PMD Gout Diagnosed in 2010 Morbid obesity No pertinent past medical history Denies seizures, DVT/PE PCP: Dr. Anthony Onychodystrophy Osteoarthritis of knees, bilateral Osteoarthritis of right hip Oxygen dependent Since 1999. Psoriasis Diagnosed in 2011--not on any medication--sees Dr. Michael Septic shock Sleep apnea Thrombocytopenia Surgical History S/P appendectomy Performed [place] [address] Malik at [facility] in [place], [place] S/P carpal tunnel release Carpal tunnel release on the right side, performed in [address] Moody at [place], [place] Carpal tunnel release on the left side, performed in [address] Medina at [place], [place] S/P cataract surgery Removal of cataract from the left eye in February [address] Ruby in [place], [place] Removal of cataract from the right eye in April [address] Ruby in [place], [place] S/P dilation and curettage Performed [place] [address] Jones at [facility] in [place], [place] S/P excision of lipoma Excision of Lipoma from the breast, performed in [address] Shelton at [facility] in [place], [place] Excision of Lipoma from the left breast, performed 11/22/[address] Agrawal at [facility] in [place], [place] S/P hysterectomy Vaginal procedure---thinks that her ovaries were removed---performed in February [address] Jones at [facility] in [place], [place] S/P partial thyroidectomy Performed in [address] Shelton at [facility] in [place], [place] S/P thoracotomy Performed in 2001 S/P tonsillectomy Performed in [address] Malik at [facility] in [place], [place] S/P trigger finger release Bilateral, performed in [address] Chaney at [place], [place] S/P tubal ligation Laparoscopic procedure---performed in [address] Malik at [facility] in [place], [place] Status post laparoscopic cholecystectomy Status post lumbar surgery Lumbar surgery at L3/L4, performed [place] [address] [facility] Status post total hip replacement, right Right side---performed 07/08/[address] Keith at [facility] in [place], [place] Family History Father Diabetes Heart disease Sister Heart disease Breast cancer diagnosed in her 40s Denies family history of Colon cancer Ovarian cancer Hyperlipidemia Hypertension Uterine cancer Thyroid disease Stroke Social History (Updated 07/13/23 @ 11:50 by Los Anthony MD) Smoking and tobacco/nicotine status: former use of tobacco/nicotine Substance/Drug Use: never Do you think of yourself as: Straight/Heterosexual Vitals/I&O/Wt Last Vital Signs Temp 98.1 F 07/13/23 09:06 Pulse 79 07/13/23 11:05 Resp 31 H 07/13/23 10:25 BP 136/81 07/13/23 10:30 Pulse Ox 91 07/13/23 11:05 O2 Del Method BiPAP 07/13/23 10:25 O2 Flow Rate 6 07/13/23 09:32 FiO2 40 07/13/23 11:05 Weight last 48 hrs Weight 122.016 kg Physical Exam Narrative: General exam demonstrates a white female, on BiPAP, conversant alert and oriented HEENT: Atraumatic normocephalic. Pupils equally round. Oropharynx not examined as she is currently on BiPAP. No blood in the apparatus. Neck is supple no lymphadenopathy thyromegaly Cardiovascular regular rate and rhythm, no murmur Lungs coarse bilaterally. No wheezing. Diminished breath sounds are noted. Abdomen is soft with positive bowel sounds. Obese. No obvious organomegaly exam is deferred Extremities trace to 1+ edema. Venous stasis changes. Dressing present left narayan Skin see findings above Neuro no obvious focal deficits Data 07/13/23 09:18 07/13/23 09:18 Other Labs: Repeat ABG demonstrates pH 7.33, PCO2 81, PO2 of 52 on BiPAP LFTs are normal with exception of ALT of 44, alk phos of 124 Calcium, normal. Albumin is 3.2 BNP 2252 Troponin 31 with repeat of 29 Urinalysis 15-25 reds, 10-15 whites Chest x-ray interstitial infiltrates bilaterally right greater than left, cardiomegaly by my read CTA chest bilateral infiltrates with groundglass opacities, consistent with COVID, interstitial fibrosis, no evidence of pulmonary embolism, small right effusion Blood cultures were obtained Previous sputum culture grew ESBL Klebsiella in the urine and the sputum EKG I reviewed demonstrates atrial fibrillation, left axis deviation, nonspecific ST-T wave changes Micro: Microbiology 07/13/23 09:56 Blood Culture - Preliminary Blood SPECIMEN COLLECTED 07/13/23 09:50 Blood Culture - Preliminary Blood SPECIMEN COLLECTED A&P Assessment and plan (1) Respiratory failure with hypoxia and hypercapnia: Pneumonia patient presents patient presents with acute on chronic respiratory failure with hypoxemia and hypercarbia. This is multifactorial. She has underlying severe COPD, likely with acute exacerbation. She has increasing infiltrates which may represent worsening pneumonia. She has recently had COVID, which can also cause interstitial changes. Cannot completely rule out acute heart failure with her interstitial changes and elevated BNP.Continue supportive care with BiPAP (2) Pneumonia: Patient with pneumonia Recent ESBL, resistant to most antibiotics with the exception of carbapenems Sputum culture MRSA PCR Initiate meropenem Wean oxygen as tolerated (3) Hemoptysis: May be secondary to pneumonia. Continue to follow closely, I have not noticed any here in the hospital Secondary to hemoptysis we will change her Xarelto to Lovenox. Initially DVT prophylaxis dosing until it is established if this is significant.. No PE on CT. (4) CHF (congestive heart failure): Patient with elevated BNP, right pleural effusion, interstitial changes. Give 40 mg of Lasix IV. Continue to follow clinically CBC, BMP tomorrow (5) COPD (chronic obstructive pulmonary disease): Patient received dexamethasone in the emergency department Continue prednisone 40 mg daily tomorrow DuoNeb every 4 hours Budesonide twice daily Consistent with acute COPD exacerbation Plan DM 2. Inusin sliding scale AFib. Continue Amiodarone, Diltiazem. Hold Xarelto secondary to hemoptysis but initiate Lovenox at DVT dosing. Multiple other medical problems as outlined in past medical history Allow natural Lovenox will suffice for DVT prophylaxis Attestations Medical Necessity Statement*: Will require greater than 2 midnight stay for evaluation and treatment of acute respiratory failure with pneumonia requiring BiPAP Diagnoses Respiratory failure with hypoxia and hypercapnia J96.91; J96.92 Pneumonia J18.9 Hemoptysis R04.2 CHF (congestive heart failure) I50.9 COPD (chronic obstructive pulmonary disease) J44.9 Time Spent (min) 58
[2023-07-13 11:48] LABS: Troponin 5 2HR 29.57 ng/L (0-10); Troponin 5 2HR Delta -1.43 ABS# (0-10)
[2023-07-13] MEDS: meropenem 1,000 MG in sodium chloride 0.9% (plus) 50 ML 100 MG IV ×2 (12:34→19:55)
[2023-07-13] MEDS: FUROsemide 10 mg/mL SDV 4mL 40 MG IVP (12:34)
--- NOTE | 2023-07-13 16:07 | ECG_ITS ---
[facility] Test Date: 2023-07-13 Pat Name: Arielle Cooper Department: Room: ICU10 Gender: Female Foam Fabricator: : 1950 Requested By: Donavan Abarca Order Number: [id number] Rocky MD: Franc Sears M.D. Measurements Intervals [place] Rate: 76 P: 0 [place]: 0 QRS: -45 QRSD: 102 T: 59 QT: 443 QTc: 499 Interpretive Statements ATRIAL FIBRILLATION PATTERN CONSISTENT WITH PULMONARY DISEASE LEFT ANTERIOR FASCICULAR BLOCK [QRS AXIS <= -45, QR IN I, RS IN II] PROLONGED QT INTERVAL Compared to ECG 07/13/2023 11:11:03 Left anterior fascicular block now present Prolonged QT interval now present Left-axis deviation no longer present Electronically Signed On 07-15-2023 14:15:29 MEDICAL SERVICES COORDINATOR by Franc Sears M.D. [id number]
[2023-07-13 16:23] LABS: Troponin 5 6HR 23.92 ng/L (0-10)
[2023-07-13 16:26] LABS: Troponin 5 6HR Delta -7.08 ng/L (0-12)
[2023-07-13] MEDS: pantoprazole DR 40 mg Tablet PO (17:34)
--- NOTE | 2023-07-13 18:11 | PC.NURSE ---
REceived patient from ER staff at 1335. Patient is oriented to person, place, time, and situation, through is lethargic and has trouble staying awake during conversation. BP: 128/68, HR: 75, SPo2: 97% on 40% Bipap.
--- NOTE | 2023-07-13 18:12 | PC.NURSE ---
Shift summary: uneventful shift. Arrived in ICU about 5 hours ago. Oriented to person, place, time, and situation. Has been on bipap since arrival. Taken off to eat dinner and her mental status seems to have improved (less lethargic than earlier). Urine output since arrival has been 800mL.
[2023-07-13] MEDS: enoxaparin 40 mg/0.4 mL Syringe SUBCUT (19:55)
[2023-07-13] MEDS: budesonide 0.5 mg/2 mL Neb INHALATION (20:10)
[2023-07-14] VITALS (27 sets, daily range): BP systolic 107–171; BP diastolic 54–107; PULSE 66–106; RESP 14–34; TEMP 36.2–37.1; O2SAT 87–100
[2023-07-14] MEDS: ipratropium-albuterol 3 mL Neb INHALATION ×6 (03:57→23:41)
[2023-07-14] MEDS: meropenem 1,000 MG in sodium chloride 0.9% (plus) 50 ML 100 MG IV ×3 (04:07→20:56)
[2023-07-14 05:12] LABS: Basophils % 0.2 %; Hematocrit 34.5 % (36-47); Lymphocytes # 0.3 10^3/uL (0.8-4.8); Lymphocytes % 5.6 %; Mean Corpuscular HGB Conc 28.1 g/dL (30-55); Mean Corpuscular Hemoglobin 27.3 pg (27-33); Mean Corpuscular Volume 97.2 fl (85-98); Mean Platelet Volume 9.7 fL (7.4-10.4); Monocytes # 0.5 10^3/uL (0.2-0.9); Monocytes % 9.3 %; Neutrophils # 4.71 10^3/uL (1.8-7.7); Neutrophils % 84.4 %; Nucleated Red Blood Cells % 0 %; Platelet Count 175 10^3/cmm (157-399); Red Blood Count 3.55 10^6/uL (3.85-5.65); White Blood Count 5.58 10^3/uL (3.29-11.43)
[2023-07-14 05:40] LABS: Alanine Aminotransferase 40 U/L (0-33); Albumin Level 2.6 g/dL (3.5-5.2); Alkaline Phosphatase 105 U/L (35-105); Anion Gap 13.5 (5-19); Aspartate Amino Transferase 16 U/L (0-32); Blood Urea Nitrogen 21 mg/dL (8-23); Calcium 9.8 mg/dL (8.5-10.5); Carbon Dioxide 34 mmol/L (22-29); Chloride 94 mmol/L (98-107); Globulin 3.1 g/dL (1.3-4.6); Glucose 141 mg/dL (65-115); Magnesium 2.3 mg/dL (1.7-2.3); Osmolality Calculated 289 mOsm/kg (285-295); Potassium 4.5 mmol/L (3.5-5.1); Sodium 137 mmol/L (136-145); Total Bilirubin 0.4 mg/dL (0.15-1.2); Total Protein 5.7 g/dL (6.6-8.7)
[2023-07-14] MEDS: allopurinol 100 mg Tablet PO (05:52)
[2023-07-14] MEDS: dilTIAZem ER (24HR) 180 mg Capsule PO (05:52)
[2023-07-14] MEDS: budesonide 0.5 mg/2 mL Neb INHALATION ×2 (07:40→20:01)
[2023-07-14] MEDS: amiodarone 200 mg Tablet PO (08:20)
[2023-07-14] MEDS: predniSONE 20 mg Tablet 40 MG PO (08:21)
[2023-07-14] MEDS: fluoxetine 20 mg Capsule 40 MG PO (08:21)
[2023-07-14] MEDS: pantoprazole DR 40 mg Tablet PO ×2 (08:21→17:31)
--- NOTE | 2023-07-14 08:44 | PM.PN ---
Subjective Subjective: Arielle feels a little bit better today. She has not had significant hemoptysis. She did have a little bit of streaking of blood in her sputum 1 time. No chest pain. Medications: Reviewed: Yes Vitals/I&O/Wt Last Vital Signs Temp 97.9 F 07/14/23 06:00 Pulse 84 07/14/23 07:56 Resp 18 07/14/23 07:40 BP 158/97 07/14/23 06:00 Pulse Ox 92 07/14/23 07:40 O2 Del Method Nasal Cannula 07/14/23 07:40 O2 Flow Rate 4 07/14/23 07:40 FiO2 40 07/14/23 05:00 07/13/23 07/14/23 07/14/23 22:59 06:59 14:59 Intake Total 575 / 625 50 / 675 Output Total 800 / 800 750 / 1550 Balance -225 / -175 -700 / -875 Weight last 48 hrs Weight 124.375 kg Weight 124 kg Weight 122.016 kg Physical Exam Narrative: General exam demonstrates no distress, I turned her oxygen down to 3 L Neck is supple no lymphadenopathy thyromegaly Cardiovascular regular rate and rhythm, no murmur Lungs coarse bilaterally. No wheezing. Diminished breath sounds are noted. Abdomen is soft with positive bowel sounds. Obese. No obvious organomegaly Extremities trace to 1+ edema. Venous stasis changes. Dressing present left narayan Urinary Catheter Management: Vaughan: Cath Placed During This Visit: yes Reason for Continuing Indwelling Catheter: Accurate Measurement of Urinary Output in Critically Ill Patients Urinary Catheter Date of Insertion: 07/13/23 Urinary Catheter Time of Insertion: 12:54 Data 07/14/23 04:25 07/14/23 04:25 Micro: Microbiology 07/13/23 09:56 Blood Culture - Preliminary Blood SPECIMEN COLLECTED 07/13/23 09:50 Blood Culture - Preliminary Blood SPECIMEN COLLECTED A&P Assessment and plan (1) Respiratory failure with hypoxia and hypercapnia: Pneumonia patient presents patient presents with acute on chronic respiratory failure with hypoxemia and hypercarbia. This is multifactorial. She has underlying severe COPD, likely with acute exacerbation. She has increasing infiltrates which may represent worsening pneumonia. She has recently had COVID, which can also cause interstitial changes. Cannot completely rule out acute heart failure with her interstitial changes and elevated BNP Still needs to use BiPAP when sleeping, at night. Otherwise if showing enough improvement she can transfer to [facility] (2) Pneumonia: Patient with pneumonia Recent ESBL, resistant to most antibiotics with the exception of carbapenems Sputum culture pending MRSA PCR pending Continue meropenem Wean oxygen as tolerated (3) Hemoptysis: May be secondary to pneumonia. Continue to follow closely, very minimal at the hospital Secondary to hemoptysis we will change her Xarelto to Lovenox. Initially DVT prophylaxis dosing until it is established if this is significant.. No PE on CT. consider reinitiation of lower dose novel anticoagulant when this is restarted, perhaps tomorrow (4) CHF (congestive heart failure): Patient with elevated BNP, right pleural effusion, interstitial changes. Give 40 mg of Lasix IV. Repeat dose of 40 mg IV now CBC, BMP tomorrow, monitor for renal dysfunction with IV Lasix (5) COPD (chronic obstructive pulmonary disease): Patient received dexamethasone in the emergency department Continue prednisone 40 mg daily DuoNeb every 4 hours Budesonide twice daily Consistent with acute COPD exacerbation Plan DM 2. Inusin sliding scale AFib. Continue Amiodarone, Diltiazem. Hold Xarelto secondary to hemoptysis but initiate Lovenox at DVT dosing. Multiple other medical problems as outlined in past medical history Allow natural Lovenox will suffice for DVT prophylaxis Attestations Medical Necessity Statement*: Needs continued hospital stay for IV antibiotics secondary to pneumonia with previous organism being resistant ESBL Diagnoses Respiratory failure with hypoxia and hypercapnia J96.91; J96.92 Pneumonia J18.9 Hemoptysis R04.2 CHF (congestive heart failure) I50.9 COPD (chronic obstructive pulmonary disease) J44.9 Time Spent (min) 26
[2023-07-14] MEDS: FUROsemide 10 mg/mL SDV 4mL 40 MG IVP (11:02)
--- NOTE | 2023-07-14 13:59 | PC.NURSE ---
report given to Aliyah on med surge. Patient going to room 255 bed 2
[2023-07-14] MEDS: enoxaparin 40 mg/0.4 mL Syringe SUBCUT (20:56)
[2023-07-15] VITALS (17 sets, daily range): BP systolic 97–114; BP diastolic 63–68; PULSE 80–101; RESP 16–20; TEMP 36.4–37; O2SAT 93–100; BMI 44.2
[2023-07-15] MEDS: meropenem 1,000 MG in sodium chloride 0.9% (plus) 50 ML 100 MG IV ×3 (04:13→20:54)
[2023-07-15] MEDS: ipratropium-albuterol 3 mL Neb INHALATION ×5 (04:31→20:14)
[2023-07-15 05:14] LABS: Basophils % 0.1 %; Eosinophils % 0.4 %; Hematocrit 33.6 % (36-47); Lymphocytes # 0.5 10^3/uL (0.8-4.8); Lymphocytes % 6.5 %; Mean Corpuscular HGB Conc 28.9 g/dL (30-55); Mean Corpuscular Hemoglobin 27.8 pg (27-33); Mean Corpuscular Volume 96.3 fl (85-98); Mean Platelet Volume 9.4 fL (7.4-10.4); Monocytes # 0.9 10^3/uL (0.2-0.9); Monocytes % 11.2 %; Neutrophils # 6.52 10^3/uL (1.8-7.7); Neutrophils % 81.1 %; Nucleated Red Blood Cells % 0 %; Platelet Count 196 10^3/cmm (157-399); Red Blood Count 3.49 10^6/uL (3.85-5.65); Red Cell Distribution Width 15.4 % (12.1-15.1); White Blood Count 8.04 10^3/uL (3.29-11.43)
[2023-07-15 05:35] LABS: Anion Gap 8.3 (5-19); Blood Urea Nitrogen 21 mg/dL (8-23); Calcium 9.7 mg/dL (8.5-10.5); Chloride 96 mmol/L (98-107); Glucose 106 mg/dL (65-115); Magnesium 2.1 mg/dL (1.7-2.3); Osmolality Calculated 295 mOsm/kg (285-295); Potassium 4.3 mmol/L (3.5-5.1); Sodium 141 mmol/L (136-145)
[2023-07-15 05:50] LABS: Carbon Dioxide 41 mmol/L (22-29)
[2023-07-15] MEDS: dilTIAZem ER (24HR) 180 mg Capsule PO (06:27)
[2023-07-15] MEDS: allopurinol 100 mg Tablet PO (06:27)
[2023-07-15] MEDS: acetaZOLAMIDE 250 mg Tablet PO (08:14)
[2023-07-15] MEDS: pantoprazole DR 40 mg Tablet PO ×2 (08:15→17:17)
[2023-07-15] MEDS: predniSONE 20 mg Tablet 40 MG PO (08:15)
[2023-07-15] MEDS: fluoxetine 20 mg Capsule 40 MG PO (08:15)
[2023-07-15] MEDS: amiodarone 200 mg Tablet PO (08:15)
[2023-07-15] MEDS: budesonide 0.5 mg/2 mL Neb INHALATION ×2 (08:58→20:14)
--- NOTE | 2023-07-15 09:32 | PM.PN ---
Subjective Subjective: Arielle reports she is a little bit more short of breath this morning. She denies any significant blood in her sputum recently. She is coughing up more cloudy sputum. Oxygen requirement has gone up to 4 L from 3 yesterday. Medications: Reviewed: Yes Vitals/I&O/Wt Last Vital Signs Temp 97.8 F 07/15/23 08:00 Pulse 88 07/15/23 09:14 Resp 20 H 07/15/23 08:55 BP 114/67 07/15/23 08:00 Pulse Ox 96 07/15/23 08:55 O2 Del Method Nasal Cannula 07/15/23 08:55 O2 Flow Rate 4 07/15/23 08:55 FiO2 40 07/15/23 04:30 07/14/23 07/15/23 07/15/23 22:59 06:59 14:59 Intake Total 290 / 1140 530 / 1670 240 / 240 Output Total 1400 / 2700 Balance 290 / -160 -870 / -1030 240 / 240 Weight last 48 hrs Weight 124.375 kg Weight 124.375 kg Weight 124 kg Physical Exam Narrative: General exam tachypnea with mild retractions on 4 L Neck is supple no lymphadenopathy thyromegaly Cardiovascular regular rate and rhythm, no murmur Lungs coarse bilaterally. No wheezing. Diminished breath sounds are noted. Abdomen is soft with positive bowel sounds. Obese. No obvious organomegaly Extremities trace to 1+ edema. Venous stasis changes. Dressing present left narayan Urinary Catheter Management: Vaughan: Cath Placed During This Visit: yes Reason for Continuing Indwelling Catheter: Accurate Measurement of Urinary Output in Critically Ill Patients Urinary Catheter Date of Insertion: 07/13/23 Urinary Catheter Time of Insertion: 12:54 Data 07/15/23 04:58 07/15/23 04:58 Micro: Microbiology 07/13/23 20:25 Gram Stain - Final Sputum - Expectorated Sputum 07/13/23 09:56 Blood Culture - Preliminary Blood NEGATIVE TO DATE 07/13/23 09:50 Blood Culture - Preliminary Blood NEGATIVE TO DATE A&P Assessment and plan (1) Respiratory failure with hypoxia and hypercapnia: Pneumonia patient presents patient presents with acute on chronic respiratory failure with hypoxemia and hypercarbia. This is multifactorial. She has underlying severe COPD, likely with acute exacerbation. She has increasing infiltrates which may represent worsening pneumonia. She has recently had COVID, which can also cause interstitial changes. Cannot completely rule out acute heart failure with her interstitial changes and elevated BNP Still needs to use BiPAP when sleeping, at night. Slightly worse today, requiring 4 L and having thick tenacious sputum Currently planning on total 14 days IV carbapenem. PICC line today. Balance will be in the nursing facility when appropriate for discharge. Add Acapella, incentive spirometry (2) Pneumonia: Patient with pneumonia Recent ESBL, resistant to most antibiotics with the exception of carbapenems Sputum culture with gram-negative rods MRSA PCR pending Continue meropenem Wean oxygen as tolerated (3) Hemoptysis: May be secondary to pneumonia. This is stopped. Increase to full anticoagulation, monitoring carefully (4) CHF (congestive heart failure): Patient with elevated BNP, right pleural effusion, interstitial changes. 40 mg of Lasix to 24 hours Secondary to elevated bicarb, give acetazolamide today and reassess tomorrow CBC, BMP tomorrow, monitor for renal dysfunction with IV Lasix (5) COPD (chronic obstructive pulmonary disease): Patient received dexamethasone in the emergency department Continue prednisone 40 mg daily DuoNeb every 4 hours Budesonide twice daily Consistent with acute COPD exacerbation Plan DM 2. Inusin sliding scale AFib. Continue Amiodarone, Diltiazem. Resume full dose anticoagulation Multiple other medical problems as outlined in past medical history Allow natural Lovenox will suffice for DVT prophylaxis Attestations Medical Necessity Statement*: Needs continued hospital stay secondary to worsening of her respiratory status and oxygen requirement in this patient with drug-resistant pneumonia Diagnoses Respiratory failure with hypoxia and hypercapnia J96.91; J96.92 Pneumonia J18.9 Hemoptysis R04.2 CHF (congestive heart failure) I50.9 COPD (chronic obstructive pulmonary disease) J44.9 Time Spent (min) 27
[2023-07-15] MEDS: FUROsemide 10 mg/mL SDV 4mL 40 MG IVP (10:36)
[2023-07-15] MEDS: enoxaparin 120 mg/0.8 mL Syringe SUBCUT ×2 (12:24→23:44)
[2023-07-16] VITALS (14 sets, daily range): BP systolic 110–135; BP diastolic 60–82; PULSE 73–119; RESP 15–22; TEMP 36.4–37; O2SAT 91–97
[2023-07-16] MEDS: ipratropium-albuterol 3 mL Neb INHALATION ×5 (00:08→19:53)
[2023-07-16 04:34] LABS: Basophils % 0.1 %; Eosinophils % 0.3 %; Hematocrit 34.6 % (36-47); Lymphocytes # 0.5 10^3/uL (0.8-4.8); Lymphocytes % 6.8 %; Mean Corpuscular HGB Conc 28.9 g/dL (30-55); Mean Corpuscular Hemoglobin 27.7 pg (27-33); Mean Corpuscular Volume 95.8 fl (85-98); Mean Platelet Volume 9.9 fL (7.4-10.4); Monocytes # 0.8 10^3/uL (0.2-0.9); Monocytes % 11.7 %; Neutrophils # 5.68 10^3/uL (1.8-7.7); Neutrophils % 80.4 %; Nucleated Red Blood Cells % 0 %; Platelet Count 209 10^3/cmm (157-399); Red Blood Count 3.61 10^6/uL (3.85-5.65); Red Cell Distribution Width 15.2 % (12.1-15.1); White Blood Count 7.07 10^3/uL (3.29-11.43)
[2023-07-16 04:55] LABS: Alanine Aminotransferase 44 U/L (0-33); Albumin Level 2.8 g/dL (3.5-5.2); Alkaline Phosphatase 93 U/L (35-105); Anion Gap 7.8 (5-19); Aspartate Amino Transferase 19 U/L (0-32); Blood Urea Nitrogen 19 mg/dL (8-23); Calcium 9.6 mg/dL (8.5-10.5); Carbon Dioxide 39 mmol/L (22-29); Chloride 99 mmol/L (98-107); Globulin 2.6 g/dL (1.3-4.6); Glucose 94 mg/dL (65-115); Osmolality Calculated 296 mOsm/kg (285-295); Potassium 3.8 mmol/L (3.5-5.1); Sodium 142 mmol/L (136-145); Total Bilirubin 0.4 mg/dL (0.15-1.2); Total Protein 5.4 g/dL (6.6-8.7)
[2023-07-16] MEDS: meropenem 1,000 MG in sodium chloride 0.9% (plus) 50 ML 100 MG IV ×3 (04:59→19:34)
[2023-07-16] MEDS: allopurinol 100 mg Tablet PO (06:27)
[2023-07-16] MEDS: dilTIAZem ER (24HR) 180 mg Capsule PO (06:27)
[2023-07-16] MEDS: HYDROcodone-acetaminophen 10-325 mg Tablet 1 TAB PO (08:12)
[2023-07-16] MEDS: amiodarone 200 mg Tablet PO (08:12)
[2023-07-16] MEDS: pantoprazole DR 40 mg Tablet PO ×2 (08:12→17:12)
[2023-07-16] MEDS: fluoxetine 20 mg Capsule 40 MG PO (08:12)
[2023-07-16] MEDS: predniSONE 20 mg Tablet 40 MG PO (08:12)
--- NOTE | 2023-07-16 08:45 | XRR_ITS ---
PROCEDURE INFORMATION: Exam: XR Chest Exam date and time: 07/16/2023 9:18 AM Age: 73 years old Clinical indication: Device placement; Picc; Additional info: Picc placement TECHNIQUE: Imaging protocol: Radiologic exam of the chest. Views: 1 view. COMPARISON: CT angio chest PE protcl [id number] 07/13/2023 10:39 AM FINDINGS: Tubes, catheters and devices: There is a peripherally inserted central catheter on the right with the tip appropriately positioned in the SVC near the cavoatrial junction. Lungs: Diffuse bilateral ill-defined reticular opacity corresponding to the findings on prior chest CT 07/13/2023. There is relatively greater opacity in the right lower lung. Pleural spaces: The left lateral costophrenic sulcus is blunted. No pneumothorax. Heart/Mediastinum: There is moderate enlargement of the cardiac silhouette. Bones/joints: Bones are unremarkable. XR/XR chest 1V portable [id number] IMPRESSION: 1. Satisfactory PICC line position. 2. Persistent bilateral nonspecific pulmonary opacity.
--- NOTE | 2023-07-16 08:50 | SUR.PREOP ---
Time Out For PICC line insertion.
[2023-07-16] MEDS: FUROsemide 10 mg/mL SDV 4mL 40 MG IVP (09:50)
[2023-07-16] MEDS: enoxaparin 120 mg/0.8 mL Syringe SUBCUT ×2 (10:07→23:24)
--- NOTE | 2023-07-16 16:37 | P.PN_ITS ---
Subjective Subjective: no new complains today, states breathing is about the same Medications: Reviewed: Yes Vitals/I&O/Wt Last Vital Signs Temp 97.6 F 07/16/23 12:47 Pulse 90 07/16/23 15:45 Resp 20 H 07/16/23 15:45 BP 135/82 07/16/23 12:47 Pulse Ox 93 07/16/23 15:45 O2 Del Method Nasal Cannula 07/16/23 15:45 O2 Flow Rate 4 07/16/23 15:45 FiO2 35 07/16/23 03:25 07/16/23 07/16/23 07/16/23 06:59 14:59 22:59 Intake Total 290 / 1110 530 / 530 Output Total 1000 / 3900 1700 / 1700 Balance -710 / -2790 -1170 / -1170 Weight last 48 hrs Weight 124.398 kg Weight 124.375 kg Physical Exam Narrative: General: No acute distress, AO x3, currently getting nebulization treatment HEENT: PERRLA, pupils bilaterally equal and reactive, pallors not present Chest: Normal vesicular breath sounds, no added sounds, equal good air entry bilaterally CVS: S1-S2 regular, no murmurs, no tachycardia, no gallops, no rubs Abdomen: Soft, nontender, no organomegaly, bowel sounds present Neuro: No focal deficits, no facial deformity, AO x3, power 5/5 in all limbs Urinary Catheter Management: Vaughan: Cath Placed During This Visit: yes Reason for Continuing Indwelling Catheter: Other Urinary Catheter Date of Insertion: 07/13/23 Urinary Catheter Time of Insertion: 12:54 Data 07/16/23 03:10 07/16/23 03:10 Micro: Microbiology 07/13/23 20:25 Gram Stain - Final Sputum - Expectorated Sputum Sputum Culture - Preliminary NAME: Arielle Cooper LOC: [facility] [place] U #: [id number] AGE/SX: 73/F ROOM: 255 RE06/26/[address]: Kana Wills MD : [id number] BED: 2 DIS: 06/29/23 FAX #: STATUS: DIS IN TLOC: Spec #: [id number] Isael: 06/26/23 Status: COMP Req #: [id number] Recd: 06/26/[address]: Matthew Garcia MD Src: Sputum SpDesc: Expec Sput Ordered: SPU Cult & GS Procedure Result Verified Site Gram Stain Final 06/27/23-816 Result FEW WHITE BLOOD CELLS RARE GRAM POSITIVE COCCI IN PAIRS Sputum Culture Final 06/29/23-1220 Organism 1 Klebsiella pneumonia esbl Growth FEW FEW NORMAL VITOR ON DAY 2 Klepnesbl M.I.C. RX --------- ------ * Amikacin <=16 S * Amoxicillin/Clavulanate >16/8 R * Ampicillin >16 R * Ampicillin/Sulbactam >16/8 R * Aztreonam >16 R * Cefepime >16 R * Ceftriaxone >32 R * Cefuroxime >16 R * Ciprofloxacin >2 R * Gentamicin >8 R * Imipenem <=1 S * Levofloxacin >4 R * Tetracycline >8 R * Tobramycin >8 R * Trimethoprim/Sulfamethoxazole >2/38 R * Piperacillin/Tazobactam 32 I A&P Assessment and plan (1) Respiratory failure with hypoxia and hypercapnia: Patient presents with acute on chronic respiratory failure with hypoxemia and hypercarbia. This is multifactorial. She has underlying severe COPD, likely with acute exacerbation. She has increasing infiltrates which may represent worsening pneumonia. She has recently had COVID, which can also cause interstitial changes. Cannot completely rule out acute heart failure with her interstitial changes and elevated BNP Still needs to use BiPAP when sleeping, at night. Currently planning on total 14 days IV carbapenem. PICC line placed. Balance will be in the nursing facility when appropriate for discharge. continue Acapella, incentive spirometry (2) Pneumonia: Patient with pneumonia ESBL Klebsiella on sputum cx recently , resistant to most antibiotics with the exception of carbapenems Sputum culture with gram-negative rods MRSA PCR pending Continue meropenem (3) Hemoptysis: May be secondary to pneumonia. resolved hold xarelto (4) CHF (congestive heart failure): Patient with elevated BNP, right pleural effusion, interstitial changes. 40 mg of iv Lasix CBC, BMP tomorrow, monitor for renal dysfunction with IV Lasix (5) COPD (chronic obstructive pulmonary disease): Patient received dexamethasone in the emergency department Continue prednisone 40 mg daily DuoNeb every 4 hours Budesonide twice daily Consistent with acute COPD exacerbation Plan DM 2. Inusin sliding scale AFib. Continue Amiodarone, Diltiazem. Resume full dose anticoagulation Multiple other medical problems as outlined in past medical history Allow natural Lovenox will suffice for DVT prophylaxis Attestations Medical Necessity Statement*: continued optimization of respiratory status Coding Level of Care Code Acute Code for [facility] Fwd Diagnoses Respiratory failure with hypoxia and hypercapnia J96.91; J96.92 Pneumonia J18.9 Hemoptysis R04.2 CHF (congestive heart failure) I50.9 COPD (chronic obstructive pulmonary disease) J44.9
[2023-07-16] MEDS: budesonide 0.5 mg/2 mL Neb INHALATION (19:53)
[2023-07-17] VITALS (22 sets, daily range): BP systolic 98–112; BP diastolic 65–70; PULSE 72–102; RESP 14–26; TEMP 36.3–36.6; O2SAT 93–98; BMI 44.4
[2023-07-17] MEDS: ipratropium-albuterol 3 mL Neb INHALATION ×6 (00:24→21:32)
[2023-07-17 04:14] LABS: Basophils % 0.2 %; Eosinophils % 0.2 %; Hematocrit 33.4 % (36-47); Lymphocytes # 0.4 10^3/uL (0.8-4.8); Lymphocytes % 5.9 %; Mean Corpuscular HGB Conc 28.4 g/dL (30-55); Mean Corpuscular Hemoglobin 27.1 pg (27-33); Mean Corpuscular Volume 95.2 fl (85-98); Mean Platelet Volume 9.3 fL (7.4-10.4); Monocytes # 0.6 10^3/uL (0.2-0.9); Monocytes % 9.8 %; Neutrophils # 5.27 10^3/uL (1.8-7.7); Neutrophils % 83.4 %; Nucleated Red Blood Cells % 0 %; Platelet Count 183 10^3/cmm (157-399); Red Blood Count 3.51 10^6/uL (3.85-5.65); Red Cell Distribution Width 15.1 % (12.1-15.1); White Blood Count 6.31 10^3/uL (3.29-11.43)
[2023-07-17 04:30] LABS: Alanine Aminotransferase 64 U/L (0-33); Albumin Level 2.8 g/dL (3.5-5.2); Alkaline Phosphatase 98 U/L (35-105); Anion Gap 9.2 (5-19); Aspartate Amino Transferase 25 U/L (0-32); Blood Urea Nitrogen 19 mg/dL (8-23); Calcium 9.6 mg/dL (8.5-10.5); Carbon Dioxide 37 mmol/L (22-29); Chloride 97 mmol/L (98-107); Globulin 2.4 g/dL (1.3-4.6); Glucose 113 mg/dL (65-115); Osmolality Calculated 291 mOsm/kg (285-295); Potassium 4.2 mmol/L (3.5-5.1); Sodium 139 mmol/L (136-145); Total Bilirubin 0.4 mg/dL (0.15-1.2); Total Protein 5.2 g/dL (6.6-8.7)
[2023-07-17] MEDS: meropenem 1,000 MG in sodium chloride 0.9% (plus) 50 ML 100 MG IV ×3 (04:53→19:40)
[2023-07-17] MEDS: allopurinol 100 mg Tablet PO (05:00)
[2023-07-17] MEDS: dilTIAZem ER (24HR) 180 mg Capsule PO (05:00)
[2023-07-17] MEDS: budesonide 0.5 mg/2 mL Neb INHALATION ×2 (07:31→21:32)
[2023-07-17] MEDS: pantoprazole DR 40 mg Tablet PO ×2 (08:35→16:51)
[2023-07-17] MEDS: amiodarone 200 mg Tablet PO (08:35)
[2023-07-17] MEDS: predniSONE 20 mg Tablet 40 MG PO (08:35)
[2023-07-17] MEDS: fluoxetine 20 mg Capsule 40 MG PO (08:36)
[2023-07-17] MEDS: FUROsemide 10 mg/mL SDV 4mL 40 MG IVP (10:13)
[2023-07-17] MEDS: enoxaparin 120 mg/0.8 mL Syringe SUBCUT ×2 (10:50→22:55)
[2023-07-17] MEDS: albuterol 2.5 mg/3 mL Neb INHALATION (13:51)
--- NOTE | 2023-07-17 13:56 | PM.PN ---
Subjective Subjective: No new complaints today. States that breathing is better. Has scattered wheezing bilaterally, not tachypneic, able to talk in complete sentences. Medications: Reviewed: Yes Vitals/I&O/Wt Last Vital Signs Temp 97.3 F L 07/17/23 13:26 Pulse 81 07/17/23 13:49 Resp 16 07/17/23 13:49 BP 98/67 07/17/23 13:26 Pulse Ox 96 07/17/23 13:49 O2 Del Method Nasal Cannula 07/17/23 13:49 O2 Flow Rate 4 07/17/23 13:49 FiO2 35 07/17/23 07:32 07/16/23 07/17/23 07/17/23 22:59 06:59 14:59 Intake Total 170 / 700 50 / 750 890 / 890 Output Total 900 / 2600 1700 / 1700 Balance 170 / -1000 -850 / -1850 -810 / -810 Weight last 48 hrs Weight 124.965 kg Weight 124.398 kg Physical Exam Narrative: General: No acute distress, AO x3 HEENT: PERRLA, pupils bilaterally equal and reactive, pallors not present Chest: Normal vesicular breath sounds, no added sounds, equal good air entry bilaterally CVS: S1-S2 regular, no murmurs, no tachycardia, no gallops, no rubs Abdomen: Soft, nontender, no organomegaly, bowel sounds present Neuro: No focal deficits, no facial deformity, AO x3, power 5/5 in all limbs Urinary Catheter Management: Vaughan: Cath Placed During This Visit: yes Reason for Continuing Indwelling Catheter: Other Urinary Catheter Date of Insertion: 07/13/23 Urinary Catheter Time of Insertion: 12:54 Data 07/17/23 02:41 07/17/23 02:41 Micro: Microbiology 07/13/23 20:25 Gram Stain - Final Sputum - Expectorated Sputum Sputum Culture - Final A&P Assessment and plan (1) Respiratory failure with hypoxia and hypercapnia: Patient presents with acute on chronic respiratory failure with hypoxemia and hypercarbia. This is multifactorial. She has underlying severe COPD, likely with acute exacerbation. She has increasing infiltrates which may represent worsening pneumonia. She has recently had COVID, which can also cause interstitial changes. Cannot completely rule out acute heart failure with her interstitial changes and elevated BNP Still needs to use BiPAP when sleeping, at night. Currently planning on total 14 days IV carbapenem. PICC line placed. Balance will be in the nursing facility when appropriate for discharge. continue Acapella, incentive spirometry (2) Pneumonia: Patient with pneumonia ESBL Klebsiella on sputum cx recently , resistant to most antibiotics with the exception of carbapenems Sputum culture with gram-negative rods MRSA PCR pending Continue meropenem (3) Hemoptysis: May be secondary to pneumonia. resolved hold xarelto (4) CHF (congestive heart failure): Patient with elevated BNP, right pleural effusion, interstitial changes. 40 mg of iv Lasix CBC, BMP tomorrow, monitor for renal dysfunction with IV Lasix (5) COPD (chronic obstructive pulmonary disease): Patient received dexamethasone in the emergency department Continue prednisone 40 mg daily DuoNeb every 4 hours Budesonide twice daily Consistent with acute COPD exacerbation Plan DM 2. Inusin sliding scale AFib. Continue Amiodarone, Diltiazem. Resume full dose anticoagulation Multiple other medical problems as outlined in past medical history Allow natural Lovenox will suffice for DVT prophylaxis Attestations Medical Necessity Statement*: Awaiting appropriate disposition planning, transition to SNF to complete IV antibiotic course as outpatient. Coding Level of Care Code Acute Code for Chg Fwd Straight Forward/Low MDM includes number and complexity of problems actively addressed during encounter, amount and/or complexity of data reviewed/ordered and described risk of complication, morbidity or mortality of management as documented and Moderate MDM includes number and complexity of problems actively addressed during encounter, amount and/or complexity of data reviewed/ordered and described risk of complication, morbidity or mortality of management as documented Diagnoses Respiratory failure with hypoxia and hypercapnia J96.91; J96.92 Pneumonia J18.9 Hemoptysis R04.2 CHF (congestive heart failure) I50.9 COPD (chronic obstructive pulmonary disease) J44.9
[2023-07-18] VITALS (13 sets, daily range): BP systolic 107–114; BP diastolic 63–70; PULSE 77–95; RESP 14–27; TEMP 36.4–36.7; O2SAT 93–97
[2023-07-18] MEDS: ipratropium-albuterol 3 mL Neb INHALATION ×4 (00:20→13:30)
[2023-07-18] MEDS: meropenem 1,000 MG in sodium chloride 0.9% (plus) 50 ML 100 MG IV ×2 (04:01→11:36)
[2023-07-18] MEDS: allopurinol 100 mg Tablet PO (05:19)
[2023-07-18] MEDS: dilTIAZem ER (24HR) 180 mg Capsule PO (05:19)
[2023-07-18] MEDS: fluoxetine 20 mg Capsule 40 MG PO (10:31)
[2023-07-18] MEDS: amiodarone 200 mg Tablet PO (10:31)
[2023-07-18] MEDS: predniSONE 20 mg Tablet 40 MG PO (10:31)
[2023-07-18] MEDS: FUROsemide 10 mg/mL SDV 4mL 40 MG IVP (10:32)
[2023-07-18] MEDS: pantoprazole DR 40 mg Tablet PO (10:32)
[2023-07-18] MEDS: enoxaparin 120 mg/0.8 mL Syringe SUBCUT (11:04)
--- NOTE | 2023-07-18 12:22 | PC.SOCIAL ---
Updated IMM Updated pt on IMM. No questions voiced. Provided pt a copy. Initialed, dated, & timed copy in chart.
--- NOTE | 2023-07-18 12:30 | P.DS_ITS ---
Discharge Providers Date of Admission: 07/13/23 11:36 Date of Discharge: July 18, 2023 Attending Provider at Admission: Los Anthony MD Attending Provider at Discharge: Matthew Garcia Primary Care Provider: Sylvia Anthony MD Diagnoses at Discharge Discharge Diagnosis (1) Respiratory failure with hypoxia and hypercapnia: Status: Acute (2) Pneumonia: Status: Acute (3) Hemoptysis: Status: Acute (4) CHF (congestive heart failure): Status: Acute (5) COPD (chronic obstructive pulmonary disease): Status: Acute Permanent problem details: sees Datar. Reason for Visit Reason for Visit: COPD, SOB Hospital Course Hospital Course Pleasant 73 lady with history of COPD was admitted for assessment management of increasing shortness of breath, thrombosis of hemoptysis, recently in the hospital for pneumonia and UTI with ESBL organism. On presentation with respiratory failure with hypoxia and hypercapnia. Pneumonia. Hemoptysis suspected secondary to pneumonia. No PE on CT. Additionally component of CHF for which he received IV Lasix. Pneumonia was treated with carboplatinum in the hospital, COPD coverage with antibiotic, as well as received steroids, breathing treatments. Sputum culture eventually growing Klebsiella MDRO sensitive to imipenem, amikacin. She has overall been gradually improving. She is feeling better. Continues steadily on 4 L nasal cannula oxygen. Awake and alert. Rep orts she is ready to transition to rehabilitation at SNF. Recommendation is for completion of total 14 days of Carbapenem until 07/26 via PICC line. Physical Exam Narrative: Sitting up in the chair. Const: COMMON NORMALS: patient oriented x3 and alert GENERAL APPEARANCE: cooperative NUTRITIONAL APPEARANCE: obese ORIENTATION/CONSCIOUSNESS: Yes awake HENMT: COMMON NORMALS: oropharynx normal Neck/C-Spine: COMMON NORMALS: no JVD Resp: COMMON NORMALS: normal respiratory effort and clear to auscultation bilaterally AUSCULTATION: clear to auscultation bilaterally and wheezes (Mild) Cardio: COMMON NORMALS: no JVD, regular rhythm, S1 normal heart sound present, S2 normal heart sound present and No murmurs present (Cardio) RHYTHM: regular rhythm HEART SOUNDS: S1 normal heart sound present and S2 normal heart sound present GI: COMMON NORMALS: Normal to inspection, nondistended, normoactive bowel sounds present, Soft to palpation and non-tender PALPATION: Yes Soft to palpation Extremity: COMMON NORMALS: no joint enlargement and no pedal edema Neuro: COMMON NORMALS: patient oriented x3 and moves all extremities SENSORIUM/ORIENTATION: Yes alert Skin: COMMON NORMALS: no rashes or lesions noted GENERAL SKIN EXAM: no rashes or lesions noted Urinary Catheter Management: Vaughan: Cath Placed During This Visit: yes Reason for Continuing Indwelling Catheter: Acute Urinary Retention or Obstruction Urinary Catheter Date of Insertion: 07/13/23 Urinary Catheter Time of Insertion: 12:54 Discharge Data Studies Completed and Pending Completed Studies During Hospitalization Category Date Time Status CT angio chest PE protcl [id number] Stat Cat Scan 07/13/23 09:22 Completed XR chest 1V portable [id number] Stat Exams 07/13/23 09:09 Completed XR chest 1V portable [id number] Stat Exams 07/16/23 08:45 Completed Pending at discharge Category Date Time Status MRSA [Methicillin Resistant S.aureu] Routine Lab 07/13/23 06:45 Ordered Radiology Impressions Chest X-Ray 07/16/23 08:45 IMPRESSION: 1. Satisfactory PICC line position. 2. Persistent bilateral nonspecific pulmonary opacity. Laboratory Results WBC 6.31 10^3/uL (3.29-11.43) 07/17/23 02:41 RBC 3.51 10^6/uL (3.85-5.65) L 07/17/23 02:41 Hgb 9.50 g/dL (11.27-16.99) L 07/17/23 02:41 Hct 33.4 % (36-47) L 07/17/23 02:41 MCV 95.2 fl (85-98) 07/17/23 02:41 MCH 27.1 pg (27-33) 07/17/23 02:41 MCHC 28.4 g/dL (30-55) L 07/17/23 02:41 RDW 15.1 % (12.1-15.1) 07/17/23 02:41 Plt Count 183 10^3/cmm (157-399) 07/17/23 02:41 MPV 9.3 fL (7.4-10.4) 07/17/23 02:41 Neut % (Auto) 83.4 % 07/17/23 02:41 Lymph % (Auto) 5.9 % 07/17/23 02:41 [place] % (Auto) 9.8 % 07/17/23 02:41 Eos % (Auto) 0.2 % 07/17/23 02:41 Baso % (Auto) 0.2 % 07/17/23 02:41 Neut # (Auto) 5.27 10^3/uL (1.8-7.7) 07/17/23 02:41 Lymph # (Auto) 0.4 10^3/uL (0.8-4.8) L 07/17/23 02:41 [place] # (Auto) 0.6 10^3/uL (0.2-0.9) 07/17/23 02:41 Eos # (Auto) 0.0 10^3/uL (0.0-0.8) 07/17/23 02:41 Baso # (Auto) 0.0 10^3/uL (0.0-0.1) 07/17/23 02:41 Nucleated RBC % (auto) 0 % 07/17/23 02:41 Nucleated RBCs # 0.0 /100WBC 07/17/23 02:41 Specimen Type Arterial 07/13/23 10:55 Sample Site Brachial, left 07/13/23 10:55 ABG pH 7.33 (7.35-7.45) L 07/13/23 10:55 ABG pCO2 81.1 mmHg (35-45) H* 07/13/23 10:55 ABG pO2 51.7 mmHg (80.0-100.0) L 07/13/23 10:55 ABG PO2/FiO2 Ratio 0 07/13/23 10:55 ABG HCO3 42.4 mmol/L (22-26) H 07/13/23 10:55 ABG O2 Saturation 86.2 07/13/23 10:55 ABG Base Excess 13.7 mmol/L (-2.0-2.0) H 07/13/23 10:55 Michael Test N/a 07/13/23 10:55 A-a O2 Gradient 18.3 mmHg (5-10) H 07/13/23 10:55 Hematocrit 31.2 % (37-47) L 07/13/23 10:55 Hgb O2 Saturation 83.5 % (95-100) L 07/13/23 10:55 Carboxyhemoglobin 2.7 %THgb (0.4-20.1) 07/13/23 10:55 Methemoglobin 0.4 % (0.4-1.5) 07/13/23 10:55 Total Hemoglobin 10.2 g/dL (12-16) L 07/13/23 10:55 Sodium 138.0 mmol/L (131-143) 07/13/23 10:55 Potassium 4.6 mmol/L (3.5-5.0) 07/13/23 10:55 Glucose 170.0 mg/dL (70-115) H 07/13/23 10:55 Ionized Calcium 1.3 mmol/L (1.1-1.4) 07/13/23 10:55 O2 Delivery Device Bipap 07/13/23 10:55 O2 Liters/Min 5.0 % 07/13/23 09:33 FiO2 40.0 % 07/13/23 10:55 Consulting Sales Executive ID Amh 07/13/23 10:55 Sodium 139 mmol/L (136-145) 07/17/23 02:41 Potassium 4.2 mmol/L (3.5-5.1) 07/17/23 02:41 Chloride 97 mmol/L (98-107) L 07/17/23 02:41 Carbon Dioxide 37 mmol/L (22-29) H 07/17/23 02:41 Anion Gap 9.2 (5-19) 07/17/23 02:41 BUN 19 mg/dL (8-23) 07/17/23 02:41 Creatinine 0.4 mg/dL (0.5-0.9) L 07/17/23 02:41 GFR Calculation Not Reportable 07/17/23 02:41 Glucose 113 mg/dL (65-115) 07/17/23 02:41 Calculated Osmolality 291 mOsm/kg (285-295) 07/17/23 02:41 Calcium 9.6 mg/dL (8.5-10.5) 07/17/23 02:41 Magnesium 2.1 mg/dL (1.7-2.3) 07/15/23 04:58 Total Bilirubin 0.4 mg/dL (0.15-1.2) 07/17/23 02:41 AST 25 U/L (0-32) 07/17/23 02:41 ALT 64 U/L (0-33) H 07/17/23 02:41 Alkaline Phosphatase 98 U/L (35-105) 07/17/23 02:41 Troponin T Baseline 31 ng/L (0-10) H 07/13/23 09:18 Troponin T 120 Minute 29.57 ng/L (0-10) H 07/13/23 11:24 Delta Troponin T -1.43 ABS# (0-10) L 07/13/23 11:24 Troponin T Hi Sens 6Hr 23.92 ng/L (0-10) H 07/13/23 15:43 Troponin T Hi Sens 6Hr Delta -7.08 ng/L (0-12) L 07/13/23 15:43 NT-Pro-B Natriuret Pep 2252 pg/mL (0-125) H 07/13/23 09:18 NT-Pro-B Natriuret Pep Cancelled 07/13/23 09:18 Total Protein 5.2 g/dL (6.6-8.7) L 07/17/23 02:41 Albumin 2.8 g/dL (3.5-5.2) L 07/17/23 02:41 Globulin 2.4 g/dL (1.3-4.6) 07/17/23 02:41 Urine Color Lou (Yellow) 07/13/23 10:25 Urine Appearance Sl hazy (CLEAR) A 07/13/23 10:25 Urine pH 6 (5-7) 07/13/23 10:25 Ur Specific [place] 1.025 (1.005-1.030) 07/13/23 10:25 Urine Protein Trace (Negative) 07/13/23 10:25 Urine Glucose (UA) Norm (Normal) 07/13/23 10:25 Urine Ketones Negative (Negative) 07/13/23 10:25 Urine Blood Neg (Negative) 07/13/23 10:25 Urine Nitrate Negative (Negative) 07/13/23 10:25 Urine Bilirubin 1+ (Negative) H 07/13/23 10:25 Urine Urobilinogen 8 mg/dL (Negative) H 07/13/23 10:25 Ur Leukocyte Esterase Negative (Negative) 07/13/23 10:25 Urine RBC 15-25 /hpf (0-2) H 07/13/23 10:25 Urine WBC 10-15 /hpf (0-5) H 07/13/23 10:25 Ur Squamous Epith Cells 0-4 /hpf (0-5) H 07/13/23 10:25 Ur Transition Epith Cell 0-4 /hpf 07/13/23 10:25 Amorphous Sediment Trace /hpf 07/13/23 10:25 Urine Bacteria Trace /hpf (NONE) 07/13/23 10:25 Urine Mucus 2+ /hpf 07/13/23 10:25 Vitals Last Vital Signs Temp 97.6 F 07/18/23 07:46 Pulse 91 07/18/23 09:20 Resp 22 H 07/18/23 09:10 BP 109/65 07/18/23 07:46 Pulse Ox 97 07/18/23 09:10 O2 Del Method Nasal Cannula 07/18/23 09:10 O2 Flow Rate 4 07/18/23 09:10 FiO2 35 07/18/23 04:04 Discharge Plan Discharge Patient Disposition: Xfer SNF Condition: Stable Prescriptions: New ertapenem 1 gram recon soln 1 g IV DAILY 10 Days Qty: 10 0RF prednisone 50 mg tablet 25 mg PO DAILY Qty: 11 0RF Rx Instructions: 2 tab for 3 days, then 1 tab for 3 days, then 1/2 tab for 4 days. Continued allopurinol 100 mg tablet 100 mg PO QAM albuterol sulfate 90 mcg/actuation HFA aerosol inhaler 2 puff INHALATION Q6H PRN (Reason: Shortness Of Breath) (DME) custom molded accommodative orthotic See Rx Instructions .ROUTE .MEDSUPPLY Qty: 1 0RF Rx Instructions: As directed albuterol sulfate 2.5 mg /3 mL (0.083 %) solution for nebulization 2.5 mg INHALATION Q4H PRN (Reason: Shortness Of Breath) amiodarone 200 mg tablet 200 mg PO DAILY Qty: 90 1RF (DME) oxygen-air delivery systems Device See Rx Instructions .Route Rx Instructions: 4 Liters per NC (DME) Diabetic Shoes with 3 pairs of inserts See Rx Instructions .Route .MEDSUPPLY Qty: 1 0RF Rx Instructions: As directed by HOME [employer] 160-9-4.8 mcg/actuation HFA aerosol inhaler 2 inh inhalation BID Qty: 10.7 3RF multivitamin Tablet 1 tab PO QAM tolterodine 2 mg capsule,extended release 24hr 2 mg PO QAM diltiazem HCl 180 mg capsule,extended release 24hr 180 mg PO QAM omeprazole 40 mg capsule,delayed release(DR/EC) 40 mg PO BID hydrocodone-acetaminophen 10-325 mg tablet 1 tab PO Q6H PRN (Reason: pain) Qty: 20 0RF Rx Instructions: May take half of a tab at a time ondansetron 4 mg tablet,disintegrating 4 mg PO Q6H PRN (Reason: nausea and vomiting) Qty: 14 0RF triamcinolone acetonide 0.1 % Cream 1 applic TOPICAL QID PRN (Reason: unknown) ferrous sulfate [Iron (ferrous sulfate)] 325 mg (65 mg iron) Tablet 325 mg PO DAILY nystatin 100,000 unit/gram Cream 1 applic TOPICAL BID PRN (Reason: yeast) docusate sodium 100 mg Capsule 100 mg PO BID PRN (Reason: Constipation) mupirocin 2 % Ointment 1 applic TOPICAL BID PRN (Reason: unknown) fluoxetine 40 mg capsule 40 mg PO DAILY benzonatate 100 mg Capsule 100 mg PO TID PRN (Reason: Cough) Qty: 10 0RF potassium chloride 10 mEq capsule, extended release 10 meq PO DAILY Qty: 30 0RF furosemide [Lasix] 20 mg tablet 20 mg PO DAILY Qty: 30 0RF prednisone 10 mg Tablet 40 mg PO DAILY Pro-Stat Max 11 gram-80 kcal/30 mL Liquid 1 ea PO BID Held Xarelto 20 mg Tablet 20 mg PO QPM Hold Instructions: Resume on 08/01/23. Rx Instructions: must administer with evening meal Discharge Orders: Discharge Order (Routine); Ordered 07/18/23 Ordered By: Matthew Garcia Referrals: Sylvia Anthony MD [Primary Care Provider] - 4-7 days Discharge Diet: Diabetic Discharge Activity: Oxygen as instructed Patient Instructions: Prednisone (By mouth), Ertapenem (By injection), How to Care for Your PICC (Peripherally Inserted Central Catheter) (GEN), Opioid Safety Activity Restrictions/Additional Instructions: Please hold Xarelto until the end of the week, then if no further hemoptysis consider restarting. Complete antibiotic course for total of 14 days of IV Carbapenem through PICC line. Remove PICC line once completed. Continue flutter valve, incentive spirometry. Reassess volume status/congestive heart failure. Continue to monitor Premeal and nightly blood glucose for diabetes. Discharge Attestations Time Spent in Discharge Care*: greater than 30 min Status at Discharge: Cognitive status at discharge: cognitively intact , Behavioral status at discharge: [facility] , Quality Metrics Clinical Quality Measures [ No reported AMI, CVA or VTE this stay] Coding Level of Care Code 78891 Total time (in minutes) for Discharge: 45 Diagnoses Respiratory failure with hypoxia and hypercapnia J96.91; J96.92 Pneumonia J18.9 Hemoptysis R04.2 CHF (congestive heart failure) I50.9 COPD (chronic obstructive pulmonary disease) J44.9
== END 2023-07-18 15:30 | disposition skilled nursing facility (03) | DRG 189 ==
LOC: ER 11:07 → ICU 11:37 → MEDSURG 07-14 14:01
PROVIDERS: Student in an Organized Health Care Education/Training Program; Admitting Provider Internal Medicine; Emergency Provider Family Medicine; PCP Family Medicine; Visit Provider Internal Medicine
DX: J96.22 Acute and chronic respiratory failure with hypercapnia (principal); J18.9 Pneumonia, unspecified organism; Z68.42 Body mass index [BMI] 45.0-49.9, adult; J44.0 Chronic obstructive pulmonary disease with (acute) lower respiratory infection; J44.1 Chronic obstructive pulmonary disease with (acute) exacerbation; J96.21 Acute and chronic respiratory failure with hypoxia; Z87.891 Personal history of nicotine dependence; Z99.81 Dependence on supplemental oxygen; I48.91 Unspecified atrial fibrillation; Z79.01 Long term (current) use of anticoagulants; I50.9 Heart failure, unspecified; Z86.73 Personal history of transient ischemic attack (TIA), and cerebral infarction without residual deficits; M10.9 Gout, unspecified; E11.42 Type 2 diabetes mellitus with diabetic polyneuropathy; E66.01 Morbid (severe) obesity due to excess calories; L40.9 Psoriasis, unspecified; G47.30 Sleep apnea, unspecified; Z91.199 Patient's noncompliance with other medical treatment and regimen due to unspecified reason; Z87.01 Personal history of pneumonia (recurrent); Z87.440 Personal history of urinary (tract) infections; Z86.16 Personal history of COVID-19; I11.0 Hypertensive heart disease with heart failure
CPT/HCPCS: 36415; 36573; 36600; 51702; 71045; 71275; 80048; 80051; 80053; 81001; 82330; 82805; 83735; 83880; 84484; 85025; 87040; 87070; 87205; 87641; 93005; 94640; 94660; 96365; 96367; 96372; 96375; 97110; 97116; 97162; 97530; 99291; J1100; J1650; J1940; J2185; J2543; J7512; J7613; J7626; Q9967

== ENCOUNTER 2023-07-22 12:59 | Inpatient (IN) | payer MEDICARE, OTHER, MEDICAID, SELFPAY ==
[2023-07-22] VITALS (9 sets, daily range): BP systolic 100–122; BP diastolic 68–82; PULSE 76–113; RESP 18–22; TEMP 36.3–36.8; O2SAT 93–96; BMI 41.9; BMI 44.1
--- NOTE | 2023-07-22 13:09 | XRR_ITS ---
PROCEDURE INFORMATION: Exam: XR Chest Exam date and time: 07/22/2023 1:32 PM Age: 73 years old Clinical indication: Cough; Additional info: Dyspnea/cough TECHNIQUE: Imaging protocol: Radiologic exam of the chest. Views: 1 view. COMPARISON: CR (CHEST, ) 07/16/2023 9:18 AM FINDINGS: Lungs: Mild infiltrate developing in the left lower lobe. Pleural spaces: Unremarkable. No pleural effusion. No pneumothorax. Heart/Mediastinum: See Vasculature finding. Vasculature: Cardiomegaly and uncoiling of the thoracic aorta accentuated by the AP. Bones/joints: Hyperdense bone length 3 changes at the right lung base. XR/XR chest 1V portable [id number] IMPRESSION: Left lower lobe infiltrate.
--- NOTE | 2023-07-22 13:14 | ECG_ITS ---
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 Measurements Intervals [place] Rate: 105 P: 0 [place]: 0 QRS: -44 QRSD: 97 T: 43 QT: 338 QTc: 448 Interpretive Statements ATRIAL FIBRILLATION WITH RAPID VENTRICULAR RESPONSE LEFT AXIS DEVIATION [QRS AXIS < -30] PATTERN CONSISTENT WITH PULMONARY DISEASE Compared to ECG 07/13/2023 16:07:33 Atrial fibrillation rate is rapid Electronically Signed On 07-22-2023 13:50:24 CARDIOTHORACIC PHYSIOTHERAPIST by Pily Cary M.D. [id number]
[2023-07-22] MEDS: ipratropium-albuterol 3 mL Neb INHALATION ×2 (13:20→20:24)
--- NOTE | 2023-07-22 13:40 | ED_ITS ---
HPI - SOB/Dyspnea General: Chief Complaint: Shortness of Breath/Dyspnea Stated Complaint: sob Time Seen by Provider: 07/22/23 13:05 Source: patient Mode of arrival: ambulatory History of Present Illness: HPI Narrative: 73-year-old female presents to the emergency room from the [facility] complaining of chest pain started today. She was given nitro there. States chest pain resolved. She was recently diagnosed with pneumonia and is in the [facility] after completed course of antibiotics. She told me that it was the atrial fibrillation that was causing the problem. On arrival here her heart r ate is slightly over 100 and she is requiring 5 L by nasal cannula to maintain oxygen sats in the low 90s normally she uses 4 L. MD elicited complaint: shortness of breath and cough Pertinent past history: COPD and congestive heart failure Severity: mild Exacerbating factors: nothing Relieving factors: nothing Known history of: COPD and congestive heart failure Associated symptoms: Reports chest congestion and cough; Deny abdominal pain, chest pain, diaphoresis, dizziness, extremity pain, fever (s), hemoptysis, lightheadedness, myalgias, nausea, orthopnea, palpitations, paresthesias, polydipsia, polyuria, rash, sense of impending doom, syncope or vomiting Treatment prior to arrival: oxygen and bronchodilator Related Data: Home oxygen amount: 4 liters Review of Systems Const: Denies: fever(s) or diaphoresis Card: Denies: chest pain, palpitations, lightheadedness, syncope or orthopnea Resp: Reports: chest congestion; Denies: hemoptysis GI: Denies: abdominal pain, nausea or vomiting : Denies: dysuria, urinary frequency or urinary urgency Musc: Denies: extremity pain Skin/Breast: Denies: rash Neuro: Denies: dizziness Endo: Denies: polyuria or polydipsia PFSH ED PFSH: Medical History A-fib Diagnosed in [address] Sears/Dr. Gonzales Anticoagulation adequate with anticoagulant therapy Xarelto Bacteremia CHF (congestive heart failure) Chronic anticoagulation COPD (chronic obstructive pulmonary disease) sees Dr. Turner. CVA (cerebral vascular accident) Diabetes Diagnosed in 2012 and is managed by PMD Diabetic peripheral neuropathy associated with type 2 diabetes mellitus E. coli septicemia Essential hypertension Diagnosed in 2004 and is on medication managed by PMD Gout Diagnosed in 2010 Morbid obesity No pertinent past medical history Denies seizures, DVT/PE PCP: Dr. Anthony Onychodystrophy Osteoarthritis of knees, bilateral Osteoarthritis of right hip Oxygen dependent Since 1999. Psoriasis Diagnosed in 2011--not on any medication--sees Dr. Michael Septic shock Sleep apnea Thrombocytopenia Surgical History S/P appendectomy Performed [place] [address] Malik at [facility] in [place], [place] S/P carpal tunnel release Carpal tunnel release on the right side, performed in [address] Moody at [facility], [place] Carpal tunnel release on the left side, performed in [address] Medina at [facility], [place] S/P cataract surgery Removal of cataract from the left eye in February [address] Ruby in [place], [place] Removal of cataract from the right eye in April [address] Ruby in [place], [place] S/P dilation and curettage Performed in [address] Jones at [place], [place] S/P excision of lipoma Excision of Lipoma from the breast, performed in [address] Shelton at [facility] in [place], [place] Excision of Lipoma from the left breast, performed 11/22/[address] Agrawal at [facility] in [place], [place] S/P hysterectomy Vaginal procedure---thinks that her ovaries were removed---performed in February [address] Jones at [facility], [place] S/P partial thyroidectomy Performed in [address] Shelton at [place], [place] S/P thoracotomy Performed in 2001 S/P tonsillectomy Performed in [address] Malik at [facility] in [place], [place] S/P trigger finger release Bilateral, performed in [address] Chaney at [facility], [place] S/P tubal ligation Laparoscopic procedure---performed in [address] Malik at [facility] in [place], [place] Status post laparoscopic cholecystectomy Status post lumbar surgery Lumbar surgery at L3/L4, performed in 1975 at [facility] Status post total hip replacement, right Right side---performed 07/08/[address] Keith at [facility] in [place], [place] Family History Father Diabetes Heart disease Sister Heart disease Breast cancer diagnosed in her 40s Denies family history of Colon cancer Ovarian cancer Hyperlipidemia Hypertension Uterine cancer Thyroid disease Stroke Social History Smoking and tobacco/nicotine status: former use of tobacco/nicotine Substance/Drug Use: never Do you think of yourself as: Straight/Heterosexual Physical Exam Const: GENERAL APPEARANCE: cooperative and comfortable ORIENTATION/CONSCIOUSNESS: Yes awake, Yes oriented to person, Yes oriented to place and Yes oriented to time HENMT: COMMON NORMALS: normocephalic, atraumatic and hearing grossly normal bilaterally HEAD & SCALP: normocephalic and atraumatic Resp: COMMON NORMALS: normal respiratory effort, No retractions and No use of accessory muscles AUSCULTATION: wheezes Cardio: COMMON NORMALS: No murmurs present (Cardio) RATE: tachycardic RHYTHM: abnormal rhythm irregularly irregular GI: COMMON NORMALS: Soft to palpation and No hepatosplenomegaly present AUSCULTATION: Yes normoactive bowel sounds PALPATION: Yes Soft to palpation, No Tenderness to palpation present (GI), No Guarding due to palpation present (GI) and Yes No hepatosplenomegaly present Extremity: COMMON NORMALS: normal to inspection, capillary refill normal, no clubbing, cyanosis or edema, no calf tenderness and no pedal edema Neuro: SENSORIUM/ORIENTATION: Yes oriented to person, Yes oriented to place and Yes oriented to time Skin: COMMON NORMALS: no rashes or lesions noted GENERAL SKIN EXAM: no rashes or lesions noted Course Vital Signs: Vital signs: Vital Signs Temperature 98.3 F 07/22/23 13:18 Pulse Rate 109 H 07/22/23 13:23 Respiratory Rate 20 H 07/22/23 13:18 Blood Pressure 108/75 07/22/23 13:18 Pulse Oximetry 93 07/22/23 13:18 Oxygen Delivery Me thod Nasal Cannula 07/22/23 13:18 Oxygen Flow Rate 5 07/22/23 13:18 MDM - SOB/Dyspnea Medical Decision Making Persistent pneumonia with chest pain now increasing hypoxia. Initially needing 5 and a 6 L by nasal cannula. Also appears to have some mild aspect of heart failure given Lasix. Micheal Vaughan discussed with hospitalist orders written previous hospitalization patient had a multidrug-resistant Klebsiella and was discharged home with a PICC line with ertapenem. Medical Records I reviewed the patient's medical records. Lab Data I reviewed the patient's lab results. 07/22/23 13:30 07/22/23 13:30 Labs/Radiology: Radiology Impressions Chest X-Ray 07/22/23 13:09 IMPRESSION: Left lower lobe infiltrate. Laboratory Results WBC 6.68 10^3/uL (3.29-11.43) 07/22/23 13:30 RBC 3.87 10^6/uL (3.85-5.65) 07/22/23 13:30 Hgb 10.60 g/dL (11.27-16.99) L 07/22/23 13:30 Hct 36.6 % (36-47) 07/22/23 13:30 MCV 94.6 fl (85-98) 07/22/23 13:30 MCH 27.4 pg (27-33) 07/22/23 13:30 MCHC 29.0 g/dL (30-55) L 07/22/23 13:30 RDW 15.1 % (12.1-15.1) 07/22/23 13:30 Plt Count 173 10^3/cmm (157-399) 07/22/23 13:30 MPV 9.4 fL (7.4-10.4) 07/22/23 13:30 Neut % (Auto) 88.3 % 07/22/23 13:30 Lymph % (Auto) 6.0 % 07/22/23 13:30 Angelina % (Auto) 4.5 % 07/22/23 13:30 Eos % (Auto) 0.1 % 07/22/23 13:30 Baso % (Auto) 0.1 % 07/22/23 13:30 Neut # (Auto) 5.89 10^3/uL (1.8-7.7) 07/22/23 13:30 Lymph # (Auto) 0.4 10^3/uL (0.8-4.8) L 07/22/23 13:30 Angelina # (Auto) 0.3 10^3/uL (0.2-0.9) 07/22/23 13:30 Eos # (Auto) 0.0 10^3/uL (0.0-0.8) 07/22/23 13:30 Baso # (Auto) 0.0 10^3/uL (0.0-0.1) 07/22/23 13:30 Nucleated RBC % (auto) 0 % 07/22/23 13:30 Nucleated RBCs # 0.0 /100WBC 07/22/23 13:30 Sodium 137 mmol/L (136-145) 07/22/23 13:30 Potassium 5.1 mmol/L (3.5-5.1) 07/22/23 13:30 Chloride 94 mmol/L (98-107) L 07/22/23 13:30 Carbon Dioxide 37 mmol/L (22-29) H 07/22/23 13:30 Anion Gap 11.1 (5-19) 07/22/23 13:30 BUN 20 mg/dL (8-23) 07/22/23 13:30 Creatinine 0.4 mg/dL (0.5-0.9) L 07/22/23 13:30 GFR Calculation Not Reportable 07/22/23 13:30 Glucose 136 mg/dL (65-115) H 07/22/23 13:30 Calculated Osmolality 289 mOsm/kg (285-295) 07/22/23 13:30 Calcium 9.3 mg/dL (8.5-10.5) 07/22/23 13:30 Total Bilirubin 0.4 mg/dL (0.15-1.2) 07/22/23 13:30 AST 50 U/L (0-32) H 07/22/23 13:30 ALT 107 U/L (0-33) H 07/22/23 13:30 Alkaline Phosphatase 95 U/L (35-105) 07/22/23 13:30 Troponin T Baseline 24 ng/L (0-10) H 07/22/23 13:30 Total Protein 5.6 g/dL (6.6-8.7) L 07/22/23 13:30 Albumin 2.6 g/dL (3.5-5.2) L 07/22/23 13:30 Globulin 3.0 g/dL (1.3-4.6) 07/22/23 13:30 All radiology interpretation(s) finalized by discharge Discharge Plan Discharge Condition: Stable Prescriptions: No Action allopurinol 100 mg tablet 100 mg PO QAM albuterol sulfate 90 mcg/actuation HFA aerosol inhaler 2 puff INHALATION Q6H PRN (Reason: Shortness Of Breath) (DME) custom molded accommodative orthotic See Rx Instructions .ROUTE .MEDSUPPLY Qty: 1 0RF Rx Instructions: As directed albuterol sulfate 2.5 mg /3 mL (0.083 %) solution for nebulization 2.5 mg INHALATION Q4H PRN (Reason: Shortness Of Breath) amiodarone 200 mg tablet 200 mg PO DAILY Qty: 90 1RF (DME) oxygen-air delivery systems Device See Rx Instructions .Route Rx Instructions: 4 Liters per NC (DME) Diabetic Shoes with 3 pairs of inserts See Rx Instructions .Route .MEDSUPPLY Qty: 1 0RF Rx Instructions: As directed by HOME Kelly Aerosphere 160-9-4.8 mcg/actuation HFA aerosol inhaler 2 inh inhalation BID Qty: 10.7 3RF multivitamin Tablet 1 tab PO QAM tolterodine 2 mg capsule,extended release 24hr 2 mg PO QAM diltiazem HCl 180 mg capsule,extended release 24hr 180 mg PO QAM omeprazole 40 mg capsule,delayed release(DR/EC) 40 mg PO BID hydrocodone-acetaminophen 10-325 mg tablet 1 tab PO Q6H PRN (Reason: pain) Qty: 20 0RF Rx Instructions: May take half of a tab at a time ondansetron 4 mg tablet,disintegrating 4 mg PO Q6H PRN (Reason: nausea and vomiting) Qty: 14 0RF triamcinolone acetonide 0.1 % Cream 1 applic TOPICAL QID PRN (Reason: unknown) ferrous sulfate [Iron (ferrous sulfate)] 325 mg (65 mg iron) Tablet 325 mg PO DAILY docusate sodium 100 mg Capsule 100 mg PO BID PRN (Reason: Constipation) mupirocin 2 % Ointment 1 applic TOPICAL BID PRN (Reason: unknown) Xarelto 20 mg Tablet 20 mg PO QPM Hold Instructions: Resume on 08/01/23. Rx Instructions: must administer with evening meal fluoxetine 40 mg capsule 40 mg PO DAILY potassium chloride 10 mEq capsule, extended release 10 meq PO DAILY Qty: 30 0RF furosemide [Lasix] 20 mg tablet 20 mg PO DAILY Qty: 30 0RF metformin 500 mg tablet 500 mg PO DAILY Referrals: Sylvia Anthony MD [Primary Care Provider] - Coding Level of Care Code ED [employer] for Belkys Herrera
[2023-07-22] MEDS: dexamethasone 10 mg/mL INJ IV (13:42)
[2023-07-22 13:44] LABS: Basophils % 0.1 %; Eosinophils % 0.1 %; Hematocrit 36.6 % (36-47); Lymphocytes # 0.4 10^3/uL (0.8-4.8); Mean Corpuscular Hemoglobin 27.4 pg (27-33); Mean Corpuscular Volume 94.6 fl (85-98); Mean Platelet Volume 9.4 fL (7.4-10.4); Monocytes # 0.3 10^3/uL (0.2-0.9); Monocytes % 4.5 %; Neutrophils # 5.89 10^3/uL (1.8-7.7); Neutrophils % 88.3 %; Nucleated Red Blood Cells % 0 %; Platelet Count 173 10^3/cmm (157-399); Red Blood Count 3.87 10^6/uL (3.85-5.65); Red Cell Distribution Width 15.1 % (12.1-15.1); White Blood Count 6.68 10^3/uL (3.29-11.43)
[2023-07-22 14:02] LABS: Troponin(5th) Baseline 24 ng/L (0-10)
[2023-07-22 14:04] LABS: Alanine Aminotransferase 107 U/L (0-33); Albumin Level 2.6 g/dL (3.5-5.2); Alkaline Phosphatase 95 U/L (35-105); Blood Urea Nitrogen 20 mg/dL (8-23); Calcium 9.3 mg/dL (8.5-10.5); Carbon Dioxide 37 mmol/L (22-29); Chloride 94 mmol/L (98-107); Glucose 136 mg/dL (65-115); Osmolality Calculated 289 mOsm/kg (285-295); Sodium 137 mmol/L (136-145); Total Bilirubin 0.4 mg/dL (0.15-1.2); Total Protein 5.6 g/dL (6.6-8.7)
[2023-07-22 14:05] LABS: Anion Gap 11.1 (5-19); Aspartate Amino Transferase 50 U/L (0-32); Potassium 5.1 mmol/L (3.5-5.1)
[2023-07-22] MEDS: FUROsemide 10 mg/mL SDV 10mL 60 MG IVP (14:57)
--- NOTE | 2023-07-22 15:23 | ECG_ITS ---
[facility] Test Date: 2023-07-22 Pat Name: Arielle Cooper Department: Room: Gender: Female Clinical Research Coordinator: : 1950 Requested By: Donavan Abarca Order Number: [id number] Rocky MD: Pily Cary M.D. Measurements Intervals Meta Rate: 113 P: 0 VT: 0 QRS: -42 QRSD: 96 T: 57 QT: 337 QTc: 462 Interpretive Statements ATRIAL FIBRILLATION WITH RAPID VENTRICULAR RESPONSE LEFT AXIS DEVIATION [QRS AXIS < -30] Compared to ECG 07/22/2023 13:14:46 No significant changes Electronically Signed On 07-23-2023 14:04:52 EARLY CHILDHOOD EDUCATION SPECIALIST by Pily Cary M.D. [email or web address] [id number]
--- NOTE | 2023-07-22 15:51 | P.HP_ITS ---
Providers/Chief Complaint Admitting Physician: Matthew Garcia Primary Care Provider: Sylvia Anthony MD Chief Complaint: sob History of Present Illness Arielle Cooper is a 73 year old female returns s/p a recent hospitalization due to complicated pneumonia with MDRO Klebsiella requiring treatment with intravenous carbapenem, prior to that had COVID about a month ago. Returns due to an episode of chest pain, atrial fibrillation earlier today, also with some more difficulty breathing, productive cough with yellow sputum, some increased oxygen requirement from 4 up to 5 L nasal cannula. She denies current chest pain or pressure. Denies worsening of pain with inspiration. She had been restarted on Xarelto and states continues on for several days at a [facility]. Has not had any recurrence of hemoptysis. Review of Systems Const: Denies: fever(s), chills, body aches or malaise ENMT: Denies: throat pain Card: Reports: chest pain; Denies: edema, pre-syncope or dyspnea on exertion Resp: Reports: dyspnea, productive cough and change in phlegm color; Denies: hemoptysis GI: Denies: abdominal pain, nausea, vomiting, diarrhea, constipation, hematochezia or melena : Denies: flank pain, urinary frequency or hematuria Musc: Denies: back pain, joint swelling or joint redness Skin/Breast: Denies: rash or new lesions Neuro: Denies: headache(s), numbness in extremities, weakness in extremities, dizziness, confusion or seizure-like activity Medications/Allergies Home Medications Medication Instructions Recorded Confirmed Last Taken Type allopurinol 100 mg tablet 100 mg PO QAM 10/12/19 07/22/23 07/22/23 History albuterol sulfate 90 mcg/actuation 2 puff inhalation Q6H PRN 05/09/20 07/22/23 05/23/23 07:00 History aerosol inhaler Shortness Of Breath albuterol sulfate 2.5 mg/3 mL 2.5 mg inhalation Q4H PRN 06/17/20 07/22/23 05/22/23 History (0.083 %) solution for nebulization Shortness Of Breath custom molded accommodative #1 ea 04/02/21 07/22/23 Unknown Rx orthotic oxygen-air delivery systems 01/27/22 07/22/23 Unknown History Diabetic Shoes with 3 pairs of #1 ea 08/10/22 07/22/23 Unknown Rx inserts budesonide 160 mcg-glycopyr 9 2 inh inhalation BID #10.7 grams 02/21/23 07/22/23 07/22/23 Rx mcg-formot 4.8 mcg/actuation HFA inhaler (Breztri Aerosphere) diltiazem HCl 180 mg 180 mg PO QAM 03/17/23 07/22/23 07/22/23 History capsule,extended release 24 hr multivitamin 1 tab PO QAM 03/17/23 07/22/23 07/22/23 History omeprazole 40 mg capsule,delayed 40 mg PO BID 03/17/23 07/22/23 07/21/23 History release tolterodine 2 mg capsule,extended 2 mg PO QAM 03/17/23 07/22/23 07/22/23 History release 24 hr ondansetron 4 mg disintegrating 4 mg PO Q6H PRN nausea and 05/16/23 07/22/23 1 Week Ago Rx tablet vomiting #14 tabs ~06/19/23 amiodarone 200 mg tablet 200 mg PO DAILY #90 tabs 05/19/23 07/22/23 07/22/23 Rx hydrocodone 10 mg-acetaminophen 1 tab PO Q6H PRN pain #20 tabs 05/23/23 07/22/23 07/13/23 Rx 325 mg tablet docusate sodium 100 mg capsule 100 mg PO BID PRN Constipation 06/26/23 07/22/23 Unknown History ferrous sulfate 325 mg (65 mg 325 mg PO DAILY 06/26/23 07/22/23 07/22/23 History iron) tablet (Iron (ferrous sulfate)) fluoxetine 40 mg capsule 40 mg PO DAILY 06/26/23 07/22/23 07/22/23 History mupirocin 2 % topical ointment 1 applic topical BID PRN unknown 06/26/23 07/22/23 Unknown History rivaroxaban 20 mg tablet (Xarelto) 20 mg PO QPM 06/26/23 07/22/23 07/21/23 History triamcinolone acetonide 0.1 % 1 applic topical QID PRN unknown 06/26/23 07/22/23 Unknown History topical cream furosemide 20 mg tablet (Lasix) 20 mg PO DAILY #30 tabs 06/29/23 07/22/23 07/22/23 Rx potassium chloride 10 mEq 10 meq PO DAILY #30 caps 06/29/23 07/22/23 07/22/23 Rx capsule,extended release metformin 500 mg tablet 500 mg PO DAILY 07/22/23 07/22/23 07/22/23 History Allergies Allergy/AdvReac Type Severity Reaction Status Date / Time adhesive tape Allergy ALGY-Hives Verified 07/13/23 09:14 PFSH Acute PFSH: Medical History A-fib Diagnosed in [address] Sears/Dr. Gonzales Anticoagulation adequate with anticoagulant therapy Xarelto Bacteremia CHF (congestive heart failure) Chronic anticoagulation COPD (chronic obstructive pulmonary disease) sees Dr. Turner. CVA (cerebral vascular accident) Diabetes Diagnosed in 2012 and is managed by PMD Diabetic peripheral neuropathy associated with type 2 diabetes mellitus E. coli septicemia Essential hypertension Diagnosed in 2004 and is on medication managed by PMD Gout Diagnosed in 2010 Morbid obesity No pertinent past medical history Denies seizures, DVT/PE PCP: Dr. Anthony Onychodystrophy Osteoarthritis of knees, bilateral Osteoarthritis of right hip Oxygen dependent Since 1999. Psoriasis Diagnosed in 2011--not on any medication--sees Dr. Michael Septic shock Sleep apnea Thrombocytopenia Surgical History S/P appendectomy Performed [place] [address] Malik at [facility] in [place], [place] S/P carpal tunnel release Carpal tunnel release on the right side, performed [place] [address] Moody at [place], [place] Carpal tunnel release on the left side, performed in [address] Medina at [place], [place] S/P cataract surgery Removal of cataract from the left eye in February [address] Ruby in [place], [place] Removal of cataract from the right eye in April [address] Ruby in [place], [place] S/P dilation and curettage Performed [place] [address] Jones at [facility] in [place], [place] S/P excision of lipoma Excision of Lipoma from the breast, performed in [address] Shelton at [facility] in [place], [place] Excision of Lipoma from the left breast, performed 11/22/[address] Agrawal at [facility] in [place], [place] S/P hysterectomy Vaginal procedure---thinks that her ovaries were removed---performed in February [address] Jones at [facility] in [place], [place] S/P partial thyroidectomy Performed in [address] Shelton at [facility] in [place], [place] S/P thoracotomy Performed in 2001 S/P tonsillectomy Performed in [address] Malik at [facility] in [place], [place] S/P trigger finger release Bilateral, performed in [address] Chaney at [place], [place] S/P tubal ligation Laparoscopic procedure---performed in [address] Malik at [facility] in [place], [place] Status post laparoscopic cholecystectomy Status post lumbar surgery Lumbar surgery at L3/L4, performed in 1975 at [facility] Status post total hip replacement, right Right side---performed 07/08/[address] Keith at [facility] in [place], [place] Family History Father Diabetes Heart disease Sister Heart disease Breast cancer diagnosed in her 40s Denies family history of Colon cancer Ovarian cancer Hyperlipidemia Hypertension Uterine cancer Thyroid disease Stroke Social History Smoking and tobacco/nicotine status: former use of tobacco/nicotine Substance/Drug Use: never Do you think of yourself as: Straight/Heterosexual Vitals/I&O/Wt Last Vital Signs Temp 98.3 F 07/22/23 13:18 Pulse 109 H 07/22/23 13:23 Resp 20 H 07/22/23 13:18 BP 108/75 07/22/23 13:18 Pulse Ox 93 07/22/23 13:18 O2 Del Method Nasal Cannula 07/22/23 13:18 O2 Flow Rate 5 07/22/23 13:18 Weight last 48 hrs Weight 117.934 kg Physical Exam Const: COMMON NORMALS: patient oriented x3 and alert GENERAL APPEARANCE: cooperative NUTRITIONAL APPEARANCE: obese ORIENTATION/CONSCIOUSNESS: Yes awake HENMT: COMMON NORMALS: oropharynx normal Neck/C-Spine: COMMON NORMALS: no JVD Resp: AUSCULTATION: rhonchi Cardio: COMMON NORMALS: no JVD, regular rhythm, S1 normal heart sound present, S2 normal heart sound present and No murmurs present (Cardio) RHYTHM: regular rhythm HEART SOUNDS: S1 normal heart sound present and S2 normal heart sound present GI: COMMON NORMALS: Normal to inspection, nondistended, normoactive bowel sounds present, Soft to palpation and non-tender PALPATION: Yes Soft to palpation Extremity: COMMON NORMALS: no joint enlargement and no pedal edema Neuro: COMMON NORMALS: patient oriented x3 and moves all extremities SENSORIUM/ORIENTATION: Yes alert Skin: COMMON NORMALS: no rashes or lesions noted GENERAL SKIN EXAM: no rashes or lesions noted Data 07/22/23 13:30 07/22/23 13:30 A&P Assessment and plan (1) Acute exacerbation of chronic obstructive airways disease: Severe COPD exacerbation with dyspnea, productive cough, rhonchi, purulent sputum with color change to yellow, worsened oxygenation requiring 5 L nasal cannula. Continue antibiotic as above. Collect sputum culture. Solu-Medrol. Breathing treatments. Risk of hyperglycemia, hypertension, confusion with IV steroids. Monitor glucose, vital signs, mental status. (2) Community acquired pneumonia: MDRO Klebsiella during last admission. She states has been receiving ertapenem daily. Recently hospitalized. A month ago she had COVID. Currently with worsening oxygenation, dyspnea, productive cough. Collect additional sputum culture. Will switch to meropenem which is on formulary in the hospital. Treat COPD exacerbation as above. Monitor oxygenation. Reassess. Reviewed vitals, CBC, CMP, urine, chest x-ray. ER documentation reviewed, discussed with ER physician. PICC line in place. (3) Klebsiella pneumonia: Recent MDRO Klebsiella pneumonia on review of sputum culture. (4) Transaminitis: Noted mild transaminitis, AST 50, ALT 107. Reassess liver function. (5) Chest pain: Episode of chest pain and atrial fibrillation this morning. Currently no tachycardia. Baseline troponin mildly elevated at 24, mild elevation persists at 2 hours 26.39. Levels are lower than previous baseline. Complete troponin EKG series. EKG with atrial fibrillation, which is known, no suggestion of acute MS on my interpretation pending formal read. Plan ARJUN: BiPAP nightly for sleep apnea. DM2: Accu-Cheks, sliding scale insulin. Hemoptysis: Resolved, has been restarted on Xarelto which she has been tolerating. CHF: Continue Lasix, received IV dose of Lasix in the ER for possible exa cerbation. Difficult to assess volume status. Reassess. Vaughan catheter placed to monitor HIPOLITO. Multiple other medical problems. Attestations Medical Necessity Statement*: Place in observation for additional assessment management of COPD exacerbation, pneumonia with ESBL/MDRO Klebsiella, worsening dyspnea, hypoxia, possible CHF exacerbation, episode of chest pain. Diagnoses Acute exacerbation of chronic obstructive airways disease J44.1 Community acquired pneumonia J18.9 Klebsiella pneumonia J15.0 Transaminitis R74.01 Chest pain R07.9
[2023-07-22 15:55] LABS: Add Urine Microscopic? NO; Charge for UA Resulting for Rev
[2023-07-22 16:09] LABS: Bilirubin Urine Neg (Negative); Blood Urine Neg (Negative); Glucose Urine UA Norm (Normal); Ketones Urine Negative (Negative); Leukocyte Esterase Urine Negative (Negative); Nitrate Urine Negative (Negative); Protein Urine Neg (Negative); Urine Appearance Clear (CLEAR); Urine Color Yellow (Yellow); Urobilinogen Urine Norm (Negative); pH Urine 7 (5-7)
[2023-07-22 16:26] LABS: Troponin 5 2HR 26.39 ng/L (0-10)
[2023-07-22 16:31] LABS: Troponin 5 2HR Delta 2.39 ABS# (0-10)
[2023-07-22] MEDS: meropenem 1,000 MG in sodium chloride 0.9% (plus) 50 ML 100 MG IV ×2 (16:32→23:37)
[2023-07-22] MEDS: methylPREDNISolone sod succ 40 mg/mL INJ 30 MG IVP ×2 (16:45→23:38)
[2023-07-22 16:59] LABS: Glucose Point of Care 179 mg/dL (70-110)
[2023-07-22] MEDS: pantoprazole DR 40 mg Tablet PO (17:17)
[2023-07-22] MEDS: rivaroxaban 10 mg Tablet 20 MG PO (17:18)
[2023-07-22 18:59] LABS: Adenovirus Not Detected (NOT DETECT); Chlamydia Pneumoniae Not Detected (NOT DETECT); Coronavirus 229E,HKU1,NL63,OC4 Not Detected (NOT DETECT); Human Metapneumovirus Not Detected (NOT DETECT); Human Rhinovirus/Enterovirus Not Detected (NOT DETECT); Influenza A Not Detected (NOT DETECT); Influenza A H1 Not Detected (NOT DETECT); Influenza A H1-2009 Not Detected (NOT DETECT); Influenza A H3 Not Detected (NOT DETECT); Influenza B Not Detected (NOT DETECT); Mycoplasma Pneumoniae Not Detected (NOT DETECT); Parainfluenza Virus Type 1 Not Detected (NOT DETECT); Parainfluenza Virus Type 2 Not Detected (NOT DETECT); Parainfluenza Virus Type 3 Not Detected (NOT DETECT); Parainfluenza Virus Type 4 Not Detected (NOT DETECT); Respiratory Syncytial Virus A Not Detected (NOT DETECT); Respiratory Syncytial Virus B Not Detected (NOT DETECT)
--- NOTE | 2023-07-22 19:10 | ECG_ITS ---
[facility] Test Date: 2023-07-22 Pat Name: Arielle Cooper Department: Room: 258 Gender: Female Disease Case Manager Rn: : 1950 Requested By: Donavan Abarca Order Number: [id number] Rocky MD: Pily Cary M.D. Measurements Intervals [place] Rate: 95 P: 0 AL: 0 QRS: -38 QRSD: 101 T: 49 QT: 351 QTc: 442 Interpretive Statements ATRIAL FIBRILLATION LEFT AXIS DEVIATION [QRS AXIS < -30] Compared to ECG 07/22/2023 15:23:59 No significant changes Electronically Signed On 07-23-2023 14:02:05 RADIOGRAPHER ANGIOGRAM by Pily Cary M.D. [id number]
[2023-07-22 19:47] LABS: SARS-COV-2 Detected (NOT DETECT)
[2023-07-22 21:08] LABS: Troponin 5 6HR 22.17 ng/L (0-10)
[2023-07-22 21:09] LABS: Troponin 5 6HR Delta -1.83 ng/L (0-12)
[2023-07-22 22:36] LABS: Glucose Point of Care 266 mg/dL (70-110)
[2023-07-22] MEDS: insulin lispro 100 unit/1 mL SUBCUT (23:43)
[2023-07-23] VITALS (17 sets, daily range): BP systolic 102–130; BP diastolic 62–92; PULSE 69–98; RESP 16–22; TEMP 36.4–36.7; O2SAT 92–99
[2023-07-23] MEDS: ipratropium-albuterol 3 mL Neb INHALATION ×5 (02:30→19:57)
[2023-07-23 05:04] LABS: Hematocrit 33.7 % (36-47); Lymphocytes # 0.2 10^3/uL (0.8-4.8); Mean Corpuscular HGB Conc 28.8 g/dL (30-55); Mean Corpuscular Hemoglobin 26.8 pg (27-33); Mean Corpuscular Volume 93.1 fl (85-98); Mean Platelet Volume 8.8 fL (7.4-10.4); Monocytes # 0.1 10^3/uL (0.2-0.9); Monocytes % 3.7 %; Neutrophils # 3.13 10^3/uL (1.8-7.7); Neutrophils % 89.2 %; Nucleated Red Blood Cells % 0 %; Platelet Count 164 10^3/cmm (157-399); Red Blood Count 3.62 10^6/uL (3.85-5.65); Red Cell Distribution Width 14.6 % (12.1-15.1); White Blood Count 3.51 10^3/uL (3.29-11.43)
[2023-07-23 05:26] LABS: Alanine Aminotransferase 89 U/L (0-33); Albumin Level 2.7 g/dL (3.5-5.2); Alkaline Phosphatase 87 U/L (35-105); Anion Gap 9.1 (5-19); Aspartate Amino Transferase 28 U/L (0-32); Blood Urea Nitrogen 20 mg/dL (8-23); Calcium 9.2 mg/dL (8.5-10.5); Carbon Dioxide 40 mmol/L (22-29); Chloride 95 mmol/L (98-107); Globulin 2.6 g/dL (1.3-4.6); Glucose 166 mg/dL (65-115); Osmolality Calculated 296 mOsm/kg (285-295); Potassium 4.1 mmol/L (3.5-5.1); Sodium 140 mmol/L (136-145); Total Bilirubin 0.3 mg/dL (0.15-1.2); Total Protein 5.3 g/dL (6.6-8.7)
[2023-07-23 07:34] LABS: Glucose Point of Care 172 mg/dL (70-110)
[2023-07-23] MEDS: dilTIAZem ER (24HR) 180 mg Capsule PO (07:50)
[2023-07-23] MEDS: allopurinol 100 mg Tablet PO (07:50)
[2023-07-23] MEDS: insulin lispro 100 unit/1 mL SUBCUT ×4 (09:21→21:28)
[2023-07-23] MEDS: methylPREDNISolone sod succ 40 mg/mL INJ 30 MG IVP ×2 (09:22→15:42)
[2023-07-23] MEDS: meropenem 1,000 MG in sodium chloride 0.9% (plus) 50 ML 100 MG IV ×2 (09:25→15:45)
[2023-07-23] MEDS: amiodarone 200 mg Tablet PO (09:28)
[2023-07-23] MEDS: fluoxetine 20 mg Capsule 40 MG PO (09:28)
[2023-07-23] MEDS: ferrous sulfate EC 325 mg Tablet PO (09:28)
[2023-07-23] MEDS: pantoprazole DR 40 mg Tablet PO ×2 (09:28→17:11)
[2023-07-23] MEDS: FUROsemide 20 mg Tablet PO (09:28)
[2023-07-23 10:58] LABS: Glucose Point of Care 230 mg/dL (70-110)
[2023-07-23 16:48] LABS: Glucose Point of Care 171 mg/dL (70-110)
[2023-07-23] MEDS: rivaroxaban 10 mg Tablet 20 MG PO (17:12)
[2023-07-23 21:17] LABS: Glucose Point of Care 288 mg/dL (70-110)
--- NOTE | 2023-07-23 21:47 | PM.PN ---
Subjective Subjective: She cannot tell that she is feeling any better than before. Still having productive cough, getting dyspneic. Vitals/I&O/Wt Last Vital Signs Temp 97.8 F 07/23/23 19:51 Pulse 93 07/23/23 20:02 Resp 20 H 07/23/23 20:02 BP 112/62 07/23/23 19:51 Pulse Ox 95 07/23/23 20:02 O2 Del Method Nasal Cannula 07/23/23 20:02 O2 Flow Rate 4 07/23/23 20:02 FiO2 45 07/23/23 04:31 07/23/23 07/23/23 07/23/23 06:59 14:59 22:59 Intake Total 50 / 460 650 / 650 290 / 940 Output Total 200 / 2000 500 / 500 Balance -150 / -1540 650 / 650 -210 / 440 Weight last 48 hrs Weight 124.103 kg Weight 124.103 kg Weight 117.934 kg Physical Exam Const: COMMON NORMALS: patient oriented x3 and alert GENERAL APPEARANCE: cooperative NUTRITIONAL APPEARANCE: obese ORIENTATION/CONSCIOUSNESS: Yes awake HENMT: COMMON NORMALS: oropharynx normal Neck/C-Spine: COMMON NORMALS: no JVD Resp: AUSCULTATION: wheezes ( mild) and diminished lung sounds Cardio: COMMON NORMALS: no JVD, regular rhythm, S1 normal heart sound present, S2 normal heart sound present and No murmurs present (Cardio) RHYTHM: regular rhythm HEART SOUNDS: S1 normal heart sound present and S2 normal heart sound present GI: COMMON NORMALS: Normal to inspection, nondistended, normoactive bowel sounds present, Soft to palpation and non-tender PALPATION: Yes Soft to palpation Extremity: COMMON NORMALS: no joint enlargement and no pedal edema Neuro: COMMON NORMALS: patient oriented x3 and moves all extremities SENSORIUM/ORIENTATION: Yes alert Skin: COMMON NORMALS: no rashes or lesions noted GENERAL SKIN EXAM: no rashes or lesions noted Data 07/23/23 04:45 07/23/23 04:45 Micro: Microbiology 07/23/23 09:27 Gram Stain - Final Sputum - Expectorated Sputum A&P Assessment and plan (1) Acute exacerbation of chronic obstructive airways disease: Still dyspnea, productive cough, air entry diminished, mild wheeze persist. Rhonchi better. Some improvement in oxygenation down to 4 L nasal cannula. As she does not feel any improvement, continue treatment for Severe COPD exacerbation. Reviewed vitals, CBC, CMP. Continue IV steroid, antibiotic, breathing treatments. Add guaifenesin, flutter valve. (2) Community acquired pneumonia: Continue meropenem. Reviewed sputum culture, noted gram-positive cocci in pairs on Gram stain. Pending culture. Follow-up. MDRO Klebsiella during last admission. She states has been receiving ertapenem daily. Recently hospitalized. A month ago she had COVID. Currently with worsening oxygenation, dyspnea, productive cough. Collect additional sputum culture. Will switch to meropenem which is on formulary in the hospital. Treat COPD exacerbation as above. Monitor oxygenation. Reassess. Reviewed vitals, CBC, CMP, urine, chest x-ray. ER documentation reviewed, discussed with ER physician. PICC line in place. (3) Klebsiella pneumonia: Recent MDRO Klebsiella pneumonia on review of sputum culture. (4) Transaminitis: Noted mild transaminitis, AST 50, ALT 107. Reassess liver function. (5) Chest pain: Episode of chest pain and atrial fibrillation this morning. Currently no tachycardia. Baseline troponin mildly elevated at 24, mild elevation persists at 2 hours 26.39. Levels are lower than previous baseline. Complete troponin EKG series. EKG with atrial fibrillation, which is known, no suggestion of acute OH on my interpretation pending formal read. Plan ARJUN: BiPAP nightly for sleep apnea. DM2: Accu-Cheks, sliding scale insulin. Hemoptysis: Resolved, has been restarted on Xarelto which she has been tolerating. CHF: Continue Lasix, received IV dose of Lasix in the ER for possible exacerbation. Difficult to assess volume status. Reassess. Vaughan catheter placed to monitor HIPOLITO. Multiple other medical problems. Attestations Medical Necessity Statement*: Continue admission for assessment management of COPD exacerbation, pneumonia. Diagnoses Acute exacerbation of chronic obstructive airways disease J44.1 Community acquired pneumonia J18.9 Klebsiella pneumonia J15.0 Transaminitis R74.01 Chest pain R07.9
[2023-07-24] VITALS (14 sets, daily range): BP systolic 113–145; BP diastolic 72–94; PULSE 78–108; RESP 16–22; TEMP 36.5–37; O2SAT 92–99
[2023-07-24] MEDS: methylPREDNISolone sod succ 40 mg/mL INJ 30 MG IVP ×3 (00:56→16:40)
[2023-07-24] MEDS: meropenem 1,000 MG in sodium chloride 0.9% (plus) 50 ML 100 MG IV ×4 (00:56→23:03)
[2023-07-24 04:08] LABS: Basophils % 0.1 %; Lymphocytes # 0.3 10^3/uL (0.8-4.8); Mean Corpuscular HGB Conc 28.9 g/dL (30-55); Mean Corpuscular Hemoglobin 27.1 pg (27-33); Mean Corpuscular Volume 93.8 fl (85-98); Mean Platelet Volume 9.1 fL (7.4-10.4); Monocytes # 0.5 10^3/uL (0.2-0.9); Monocytes % 4.6 %; Neutrophils # 9.09 10^3/uL (1.8-7.7); Neutrophils % 91.5 %; Nucleated Red Blood Cells % 0 %; Platelet Count 221 10^3/cmm (157-399); Red Blood Count 3.73 10^6/uL (3.85-5.65); Red Cell Distribution Width 14.6 % (12.1-15.1); White Blood Count 9.94 10^3/uL (3.29-11.43)
[2023-07-24 04:40] LABS: Alanine Aminotransferase 86 U/L (0-33); Albumin Level 2.7 g/dL (3.5-5.2); Alkaline Phosphatase 90 U/L (35-105); Anion Gap 7.2 (5-19); Aspartate Amino Transferase 27 U/L (0-32); Blood Urea Nitrogen 19 mg/dL (8-23); Calcium 9.6 mg/dL (8.5-10.5); Chloride 92 mmol/L (98-107); Globulin 2.6 g/dL (1.3-4.6); Glucose 126 mg/dL (65-115); Osmolality Calculated 288 mOsm/kg (285-295); Potassium 4.2 mmol/L (3.5-5.1); Sodium 137 mmol/L (136-145); Total Bilirubin 0.3 mg/dL (0.15-1.2); Total Protein 5.3 g/dL (6.6-8.7)
[2023-07-24 04:45] LABS: Carbon Dioxide 42 mmol/L (22-29)
[2023-07-24] MEDS: allopurinol 100 mg Tablet PO (06:00)
[2023-07-24] MEDS: dilTIAZem ER (24HR) 180 mg Capsule PO (06:00)
[2023-07-24 06:54] LABS: Glucose Point of Care 140 mg/dL (70-110)
[2023-07-24] MEDS: ipratropium-albuterol 3 mL Neb INHALATION ×4 (07:35→20:59)
[2023-07-24] MEDS: fluoxetine 20 mg Capsule 40 MG PO (08:21)
[2023-07-24] MEDS: amiodarone 200 mg Tablet PO (08:21)
[2023-07-24] MEDS: ferrous sulfate EC 325 mg Tablet PO (08:21)
[2023-07-24] MEDS: FUROsemide 20 mg Tablet PO (08:21)
[2023-07-24] MEDS: guaiFENesin 600 mg Tablet 1200 MG PO ×2 (08:21→17:18)
[2023-07-24] MEDS: pantoprazole DR 40 mg Tablet PO ×2 (08:22→17:19)
[2023-07-24 11:46] LABS: Glucose Point of Care 174 mg/dL (70-110)
[2023-07-24] MEDS: insulin lispro 100 unit/1 mL SUBCUT ×3 (11:49→21:50)
[2023-07-24 16:44] LABS: Glucose Point of Care 161 mg/dL (70-110)
[2023-07-24] MEDS: rivaroxaban 10 mg Tablet 20 MG PO (17:18)
[2023-07-24 20:38] LABS: Glucose Point of Care 177 mg/dL (70-110)
--- NOTE | 2023-07-24 21:42 | PM.PN ---
Subjective Subjective: Symptoms are unimproved. Continues to cough with productive cough, dyspnea on exertion. Vitals/I&O/Wt Last Vital Signs Temp 97.7 F 07/24/23 19:39 Pulse 82 07/24/23 21:06 Resp 22 H 07/24/23 21:05 BP 121/72 07/24/23 19:39 Pulse Ox 94 07/24/23 21:06 O2 Del Method BiPAP 07/24/23 21:05 O2 Flow Rate 4 07/24/23 20:00 FiO2 40 07/24/23 21:06 07/24/23 07/24/23 07/24/23 06:59 14:59 22:59 Intake Total 50 / 990 770 / 770 50 / 820 Output Total 350 / 1350 Balance -300 / -360 770 / 770 50 / 820 Weight last 48 hrs Weight 124.539 kg Weight 124.103 kg Physical Exam Const: COMMON NORMALS: patient oriented x3 and alert GENERAL APPEARANCE: cooperative NUTRITIONAL APPEARANCE: obese ORIENTATION/CONSCIOUSNESS: Yes awake HENMT: COMMON NORMALS: oropharynx normal Neck/C-Spine: COMMON NORMALS: no JVD Resp: AUSCULTATION: rhonchi, wheezes ( mild) and diminished lung sounds Cardio: COMMON NORMALS: no JVD, regular rhythm, S1 normal heart sound present, S2 normal heart sound present and No murmurs present (Cardio) RHYTHM: regular rhythm HEART SOUNDS: S1 normal heart sound present and S2 normal heart sound present GI: COMMON NORMALS: Normal to inspection, nondistended, normoactive bowel sounds present, Soft to palpation and non-tender PALPATION: Yes Soft to palpation Extremity: COMMON NORMALS: no joint enlargement and no pedal edema Neuro: COMMON NORMALS: patient oriented x3 and moves all extremities SENSORIUM/ORIENTATION: Yes alert Skin: COMMON NORMALS: no rashes or lesions noted GENERAL SKIN EXAM: no rashes or lesions noted Data 07/24/23 03:43 07/24/23 03:43 Micro: Microbiology 07/23/23 09:27 Gram Stain - Final Sputum - Expectorated Sputum Sputum Culture - Preliminary Yeast species A&P Assessment and plan (1) Acute exacerbation of chronic obstructive airways disease: Unimproved symptoms with rhonchi, wheezing, diminished air entry, still having dyspnea, productive cough. Will increase methylprednisolone dose. At risk of hyperglycemia, will monitor Accu-Cheks, reviewed. Reviewed CBC, BMP. Continue meropenem. Guaifenesin, flutter valve. (2) Community acquired pneumonia: Continue meropenem. Reviewed sputum culture, normal octavio on day 1. Follow-up. MDRO Klebsiella during last admission. She states has been receiving ertapenem daily. Recently hospitalized. A month ago she had COVID. Currently with worsening oxygenation, dyspnea, productive cough. Collect additional sputum culture. Will switch to meropenem which is on formulary in the hospital. Treat COPD exacerbation as above. Monitor oxygenation. Reassess. Reviewed vitals, CBC, CMP, urine, chest x-ray. ER documentation reviewed, discussed with ER physician. PICC line in place. (3) Klebsiella pneumonia: Recent MDRO Klebsiella pneumonia on review of sputum culture. (4) Transaminitis: Noted mild transaminitis, AST 50, ALT 107. Reassess liver function. (5) Chest pain: Episode of chest pain and atrial fibrillation this morning. Currently no tachycardia. Baseline troponin mildly elevated at 24, mild elevation persists at 2 hours 26.39. Levels are lower than previous baseline. Complete troponin EKG series. EKG with atrial fibrillation, which is known, no suggestion of acute ND on my interpretation pending formal read. Plan ARJUN: BiPAP nightly for sleep apnea. DM2: Accu-Cheks, sliding scale insulin. Hemoptysis: Resolved, has been restarted on Xarelto which she has been tolerating. CHF: Continue Lasix, received IV dose of Lasix in the ER for possible exacerbation. Difficult to assess volume status. Reassess. Vaughan catheter placed to monitor HIPOLITO. Multiple other medical problems. Attestations Medical Necessity Statement*: Continue admission for assessment management of severe exacerbation of COPD, secondary pneumonia with MDRO organism after COVID infection. Diagnoses Acute exacerbation of chronic obstructive airways disease J44.1 Community acquired pneumonia J18.9 Klebsiella pneumonia J15.0 Transaminitis R74.01 Chest pain R07.9
[2023-07-24] MEDS: methylPREDNISolone sod succ 40 mg/mL INJ IVP (23:03)
[2023-07-25] VITALS (13 sets, daily range): BP systolic 114–137; BP diastolic 66–84; PULSE 73–121; RESP 16–20; TEMP 36.4–37.2; O2SAT 93–96
[2023-07-25] MEDS: methylPREDNISolone sod succ 40 mg/mL INJ IVP ×3 (04:59→21:41)
[2023-07-25 05:03] LABS: Basophils % 0.2 %; Hematocrit 36.3 % (36-47); Lymphocytes # 0.3 10^3/uL (0.8-4.8); Lymphocytes % 2.8 %; Mean Corpuscular HGB Conc 28.9 g/dL (30-55); Mean Corpuscular Hemoglobin 26.6 pg (27-33); Mean Corpuscular Volume 91.9 fl (85-98); Monocytes # 0.4 10^3/uL (0.2-0.9); Monocytes % 3.1 %; Neutrophils # 10.81 10^3/uL (1.8-7.7); Nucleated Red Blood Cells % 0 %; Platelet Count 252 10^3/cmm (157-399); Red Blood Count 3.95 10^6/uL (3.85-5.65); Red Cell Distribution Width 14.6 % (12.1-15.1); White Blood Count 11.61 10^3/uL (3.29-11.43)
[2023-07-25 05:32] LABS: Alanine Aminotransferase 99 U/L (0-33); Albumin Level 2.9 g/dL (3.5-5.2); Alkaline Phosphatase 92 U/L (35-105); Anion Gap 9.8 (5-19); Aspartate Amino Transferase 27 U/L (0-32); Blood Urea Nitrogen 19 mg/dL (8-23); Calcium 9.7 mg/dL (8.5-10.5); Carbon Dioxide 39 mmol/L (22-29); Chloride 93 mmol/L (98-107); Globulin 2.6 g/dL (1.3-4.6); Glucose 161 mg/dL (65-115); Osmolality Calculated 290 mOsm/kg (285-295); Potassium 4.8 mmol/L (3.5-5.1); Sodium 137 mmol/L (136-145); Total Bilirubin 0.4 mg/dL (0.15-1.2); Total Protein 5.5 g/dL (6.6-8.7)
[2023-07-25] MEDS: dilTIAZem ER (24HR) 180 mg Capsule PO (06:31)
[2023-07-25] MEDS: allopurinol 100 mg Tablet PO (06:31)
[2023-07-25 06:43] LABS: Glucose Point of Care 162 mg/dL (70-110)
[2023-07-25] MEDS: ipratropium-albuterol 3 mL Neb INHALATION ×4 (08:13→20:14)
[2023-07-25] MEDS: insulin lispro 100 unit/1 mL SUBCUT ×3 (08:29→21:41)
[2023-07-25] MEDS: fluoxetine 20 mg Capsule 40 MG PO (08:30)
[2023-07-25] MEDS: pantoprazole DR 40 mg Tablet PO ×2 (08:30→17:42)
[2023-07-25] MEDS: guaiFENesin 600 mg Tablet 1200 MG PO ×2 (08:30→17:42)
[2023-07-25] MEDS: amiodarone 200 mg Tablet PO (08:30)
[2023-07-25] MEDS: meropenem 1,000 MG in sodium chloride 0.9% (plus) 50 ML 100 MG IV ×3 (08:31→23:52)
[2023-07-25] MEDS: ferrous sulfate EC 325 mg Tablet PO (08:31)
[2023-07-25] MEDS: FUROsemide 20 mg Tablet PO (08:31)
[2023-07-25] MEDS: FUROsemide 10 mg/mL SDV 4mL 40 MG IVP (11:22)
[2023-07-25 12:08] LABS: Glucose Point of Care 245 mg/dL (70-110)
[2023-07-25] MEDS: fluconazole 100 mg Tablet 200 MG PO (12:27)
--- NOTE | 2023-07-25 14:43 | PC.SOCIAL ---
IMM Update pg 2 of IMM updated and reviewed w/ patient. Copy provided and copy dated, initialed and placed in chart.
--- NOTE | 2023-07-25 16:14 | PM.PN ---
Subjective Subjective: Hospital course, labs appreciated. Today morning patient seen sitting up comfortably in bed at baseline breathing effort and status on 4 L of oxygen supplementation. Patient denies any nausea, vomiting, headache. Continues to have cough. States he went to a senior living but they were having issues with her CPAP which she was not able to use for last few nights and she is also not getting her breathing treatments as she takes at home through nebulization other than inhalation treatment which she was getting twice daily. Blood work appreciated. Vitals/I&O/Wt Last Vital Signs Temp 97.6 F 07/25/23 12:00 Pulse 88 07/25/23 15:34 Resp 18 07/25/23 15:34 BP 137/78 07/25/23 12:00 Pulse Ox 95 07/25/23 15:34 O2 Del Method Nasal Cannula 07/25/23 15:34 O2 Flow Rate 4 07/25/23 15:34 FiO2 40 07/24/23 21:06 07/25/23 07/25/23 07/25/23 06:59 14:59 22:59 Intake Total 50 / 870 650 / 650 Output Total 350 / 850 Balance -300 / 20 650 / 650 Weight last 48 hrs Weight 124.539 kg Weight 124.539 kg Physical Exam Const: COMMON NORMALS: patient oriented x3 and alert GENERAL APPEARANCE: cooperative NUTRITIONAL APPEARANCE: obese ORIENTATION/CONSCIOUSNESS: Yes awake HENMT: COMMON NORMALS: oropharynx normal Neck/C-Spine: COMMON NORMALS: no JVD Resp: AUSCULTATION: rhonchi, wheezes ( mild) and diminished lung sounds Cardio: COMMON NORMALS: no JVD, regular rhythm, S1 normal heart sound present, S2 normal heart sound present and No murmurs present (Cardio) RHYTHM: regular rhythm HEART SOUNDS: S1 normal heart sound present and S2 normal heart sound present GI: COMMON NORMALS: Normal to inspection, nondistended, normoactive bowel sounds present, Soft to palpation and non-tender PALPATION: Yes Soft to palpation Extremity: COMMON NORMALS: no joint enlargement and no pedal edema Neuro: COMMON NORMALS: patient oriented x3 and moves all extremities SENSORIUM/ORIENTATION: Yes alert Skin: COMMON NORMALS: no rashes or lesions noted GENERAL SKIN EXAM: no rashes or lesions noted Data 07/25/23 04:55 07/25/23 04:55 Micro: Microbiology 07/23/23 09:27 Gram Stain - Final Sputum - Expectorated Sputum Sputum Culture - Preliminary Yeast species A&P Assessment and plan (1) Acute exacerbation of chronic obstructive airways disease: In setting of recent COVID-19 pneumonia along with possibility of left lower lobe pneumonia. Most likely in setting of no CPAP at the senior living along with discontinuation of baseline inhalation treatment. Improving. Wean Solu-Medrol to 40 mg every 8 hourly. Continue with meropenem given recent pneumonia to finish a course of antibiotics in 07/26. DuoNebs every 4 hours, Pulmicort twice daily. Tessalon Perles every 8 hourly, aggressive pulmonary toilet. Sputum culture from this time showing yeast. Most likely contaminant but for now we will start on oral fluconazole 200 mg daily for next 7 days. (2) Community acquired pneumonia: Recent sputum culture positive for MDRO Klebsiella. Continue meropenem. Will dose 07/26. Sputum culture at this time growing yeast. Fluconazole as above. (3) Klebsiella pneumonia: Recent MDRO Klebsiella pneumonia on review of sputum culture. (4) Transaminitis: Noted mild transaminitis, AST 50, ALT 107. Reassess liver function daily. (5) Chest pain: Episode of chest pain and atrial fibrillation this morning. Currently no tachycardia. Baseline troponin mildly elevated at 24, mild elevation persists at 2 hours 26.39. Levels are lower than previous baseline. Complete troponin EKG series. EKG with atrial fibrillation, which is known, no suggestion of acute PR on my interpretation pending formal read. Plan ARJUN: BiPAP nightly for sleep apnea. DM2: Accu-Cheks, sliding scale insulin. Hemoptysis: Resolved, has been restarted on Xarelto which she has been tolerating. CHF: Continue Lasix, received IV dose of Lasix in the ER for possible exacerbation. Difficult to assess volume status. Reassess. DC Vaughan catheter. Multiple other medical problems. DNR/DNI. Carb consistent cardiac diet Protonix for PUD prophylaxis Xarelto will suffice as DVT prophylaxis. Attestations Medical Necessity Statement*: Requires further hospitalization for management of acute on chronic hypoxic respiratory failure in setting of COPD exacerbation, recent MDRO Klebsiella pneumonia on IV antibiotics Diagnoses Acute exacerbation of chronic obstructive airways disease J44.1 Community acquired pneumonia J18.9 Klebsiella pneumonia J15.0 Transaminitis R74.01 Chest pain R07.9
[2023-07-25] MEDS: rivaroxaban 10 mg Tablet 20 MG PO (17:42)
[2023-07-25 17:51] LABS: Glucose Point of Care 180 mg/dL (70-110)
[2023-07-25 20:26] LABS: Glucose Point of Care 231 mg/dL (70-110)
[2023-07-26] VITALS (12 sets, daily range): BP systolic 104–150; BP diastolic 60–85; PULSE 61–111; RESP 16–24; TEMP 36.5–37.1; O2SAT 91–98
[2023-07-26] MEDS: methylPREDNISolone sod succ 40 mg/mL INJ IVP (05:00)
[2023-07-26] MEDS: dilTIAZem ER (24HR) 180 mg Capsule PO (07:00)
[2023-07-26] MEDS: allopurinol 100 mg Tablet PO (07:00)
[2023-07-26 08:22] LABS: Glucose Point of Care 172 mg/dL (70-110)
[2023-07-26 08:27] LABS: Alanine Aminotransferase 84 U/L (0-33); Alkaline Phosphatase 94 U/L (35-105); Anion Gap 9.5 (5-19); Aspartate Amino Transferase 17 U/L (0-32); Blood Urea Nitrogen 23 mg/dL (8-23); Chloride 91 mmol/L (98-107); Glucose 154 mg/dL (65-115); Osmolality Calculated 295 mOsm/kg (285-295); Potassium 4.5 mmol/L (3.5-5.1); Sodium 139 mmol/L (136-145); Total Bilirubin 0.4 mg/dL (0.15-1.2)
[2023-07-26 09:14] LABS: Carbon Dioxide 43 mmol/L (22-29)
[2023-07-26 09:19] LABS: Basophils % 0.1 %; Hematocrit 37.4 % (36-47); Lymphocytes # 0.3 10^3/uL (0.8-4.8); Lymphocytes % 2.6 %; Mean Corpuscular HGB Conc 29.1 g/dL (30-55); Mean Corpuscular Volume 92.6 fl (85-98); Mean Platelet Volume 9.2 fL (7.4-10.4); Monocytes # 0.4 10^3/uL (0.2-0.9); Monocytes % 3.2 %; Neutrophils # 10.47 10^3/uL (1.8-7.7); Neutrophils % 92.9 %; Nucleated Red Blood Cells % 0 %; Platelet Count 270 10^3/cmm (157-399); Red Blood Count 4.04 10^6/uL (3.85-5.65); Red Cell Distribution Width 14.6 % (12.1-15.1); White Blood Count 11.26 10^3/uL (3.29-11.43)
[2023-07-26] MEDS: guaiFENesin 600 mg Tablet 1200 MG PO ×2 (09:19→18:42)
[2023-07-26] MEDS: fluconazole 100 mg Tablet 200 MG PO (09:19)
[2023-07-26] MEDS: pantoprazole DR 40 mg Tablet PO ×2 (09:19→18:43)
[2023-07-26] MEDS: ferrous sulfate EC 325 mg Tablet PO (09:19)
[2023-07-26] MEDS: fluoxetine 20 mg Capsule 40 MG PO (09:19)
[2023-07-26] MEDS: insulin lispro 100 unit/1 mL SUBCUT ×3 (09:20→22:15)
[2023-07-26] MEDS: amiodarone 200 mg Tablet PO (09:20)
[2023-07-26] MEDS: ipratropium-albuterol 3 mL Neb INHALATION ×3 (09:20→20:19)
[2023-07-26] MEDS: FUROsemide 10 mg/mL SDV 4mL 40 MG IVP (09:21)
[2023-07-26] MEDS: meropenem 1,000 MG in sodium chloride 0.9% (plus) 50 ML 100 MG IV (09:34)
--- NOTE | 2023-07-26 10:14 | PM.DCS ---
Discharge Providers Date of Admission: 07/22/23 14:38 Date of Discharge: July 26, 2023 Attending Provider at Admission: Matthew Garcia Attending Provider at Discharge: Kana Wills MD Primary Care Provider: Sylvia Anthony MD Diagnoses at Discharge Discharge Diagnosis (1) Acute exacerbation of chronic obstructive airways disease: Status: Acute (2) Community acquired pneumonia: Status: Acute (3) Klebsiella pneumonia: Status: Acute (4) Transaminitis: Status: Acute (5) Chest pain: Status: Acute Reason for Visit Reason for Visit: sob Brief History: History as per HPI Arielle Cooper is a 73 year old female returns s/p a recent hospitalization due to complicated pneumonia with MDRO Klebsiella requiring treatment with intravenous carbapenem, prior to that had COVID about a month ago. Returns due to an episode of chest pain, atrial fibrillation earlier today, also with some more difficulty breathing, productive cough with yellow sputum, some increased oxygen requirement from 4 up to 5 L nasal cannula. She denies current chest pain or pressure. Denies worsening of pain with inspiration. She had been restarted on Xarelto and states continues on for several days at a [place] [facility]. Has not had any recurrence of hemoptysis. Hospital Course Hospital Course Patient was admitted to the hospital further evaluation and management of hypoxic arrest atrial failure in setting of COPD exacerbation most likely secondary to recent bacterial pneumonia and COVID-19. Patient stated that while at [place] [facility] she was not getting her nebulization treatment like she does at home along with CPAP not functioning. She was started on nebulization treatment along with IV steroids. She responded well to the treatment and is back to her baseline oxygen supplementation. She finished her IV course of antibiotics, PICC line was removed. She has been discharged on DuoNebs every 6 hour. halfway has been informed about need for CPAP to maintain patient's oxygen supplementation and preventing further COPD exacerbation. Case management has reached out to the SNF. Physical Exam Const: COMMON NORMALS: patient oriented x3 and alert GENERAL APPEARANCE: cooperative NUTRITIONAL APPEARANCE: obese ORIENTATION/CONSCIOUSNESS: Yes awake HENMT: COMMON NORMALS: oropharynx normal Neck/C-Spine: COMMON NORMALS: no JVD Resp: AUSCULTATION: rhonchi, wheezes ( mild) and diminished lung sounds Cardio: COMMON NORMALS: no JVD, regular rhythm, S1 normal heart sound present, S2 normal heart sound present and No murmurs present (Cardio) RHYTHM: regular rhythm HEART SOUNDS: S1 normal heart sound present and S2 normal heart sound present GI: COMMON NORMALS: Normal to inspection, nondistended, normoactive bowel sounds present, Soft to palpation and non-tender PALPATION: Yes Soft to palpation Extremity: COMMON NORMALS: no joint enlargement and no pedal edema Neuro: COMMON NORMALS: patient oriented x3 and moves all extremities SENSORIUM/ORIENTATION: Yes alert Skin: COMMON NORMALS: no rashes or lesions noted GENERAL SKIN EXAM: no rashes or lesions noted Discharge Data Studies Completed and Pending Completed Studies During Hospitalization Category Date Time Status XR chest 1V portable [id number] Stat Exams 07/22/23 13:09 Completed Pending at discharge Category Date Time Status Sputum Culture and Gram Stain Routine Lab 07/23/23 09:27 Results Radiology Impressions Chest X-Ray 07/22/23 13:09 IMPRESSION: Left lower lobe infiltrate. Laboratory Results WBC 11.26 10^3/uL (3.29-11.43) 07/26/23 05:03 RBC 4.04 10^6/uL (3.85-5.65) 07/26/23 05:03 Hgb 10.90 g/dL (11.27-16.99) L 07/26/23 05:03 Hct 37.4 % (36-47) 07/26/23 05:03 MCV 92.6 fl (85-98) 07/26/23 05:03 MCH 27.0 pg (27-33) 07/26/23 05:03 MCHC 29.1 g/dL (30-55) L 07/26/23 05:03 RDW 14.6 % (12.1-15.1) 07/26/23 05:03 Plt Count 270 10^3/cmm (157-399) 07/26/23 05:03 MPV 9.2 fL (7.4-10.4) 07/26/23 05:03 Neut % (Auto) 92.9 % 07/26/23 05:03 Lymph % (Auto) 2.6 % 07/26/23 05:03 [place] % (Auto) 3.2 % 07/26/23 05:03 Eos % (Auto) 0.0 % 07/26/23 05:03 Baso % (Auto) 0.1 % 07/26/23 05:03 Neut # (Auto) 10.47 10^3/uL (1.8-7.7) H 07/26/23 05:03 Lymph # (Auto) 0.3 10^3/uL (0.8-4.8) L 07/26/23 05:03 [place] # (Auto) 0.4 10^3/uL (0.2-0.9) 07/26/23 05:03 Eos # (Auto) 0.0 10^3/uL (0.0-0.8) 07/26/23 05:03 Baso # (Auto) 0.0 10^3/uL (0.0-0.1) 07/26/23 05:03 Nucleated RBC % (auto) 0 % 07/26/23 05:03 Nucleated RBCs # 0.0 /100WBC 07/26/23 05:03 Sodium 139 mmol/L (136-145) 07/26/23 05:03 Potassium 4.5 mmol/L (3.5-5.1) 07/26/23 05:03 Chloride 91 mmol/L (98-107) L 07/26/23 05:03 Carbon Dioxide 43 mmol/L (22-29) H* 07/26/23 05:03 Anion Gap 9.5 (5-19) 07/26/23 05:03 BUN 23 mg/dL (8-23) 07/26/23 05:03 Creatinine 0.4 mg/dL (0.5-0.9) L 07/26/23 05:03 GFR Calculation Not Reportable 07/26/23 05:03 Glucose 154 mg/dL (65-115) H 07/26/23 05:03 POC Glucose 172 mg/dL (70-110) H 07/26/23 06:17 Calculated Osmolality 295 mOsm/kg (285-295) 07/26/23 05:03 Calcium 10.0 mg/dL (8.5-10.5) 07/26/23 05:03 Total Bilirubin 0.4 mg/dL (0.15-1.2) 07/26/23 05:03 AST 17 U/L (0-32) 07/26/23 05:03 ALT 84 U/L (0-33) H 07/26/23 05:03 Alkaline Phosphatase 94 U/L (35-105) 07/26/23 05:03 Troponin T Baseline 24 ng/L (0-10) H 07/22/23 13:30 Troponin T 120 Minute 26.39 ng/L (0-10) H 07/22/23 15:42 Delta Troponin T 2.39 ABS# (0-10) 07/22/23 15:42 Troponin T Hi Sens 6Hr 22.17 ng/L (0-10) H 07/22/23 20:12 Troponin T Hi Sens 6Hr Delta -1.83 ng/L (0-12) L 07/22/23 20:12 Total Protein 5.0 g/dL (6.6-8.7) L 07/26/23 05:03 Albumin 3.0 g/dL (3.5-5.2) L 07/26/23 05:03 Globulin 2.0 g/dL (1.3-4.6) 07/26/23 05:03 Urine Color Yellow (Yellow) 07/22/23 14:28 Urine Appearance Clear (CLEAR) 07/22/23 14:28 Urine pH 7 (5-7) 07/22/23 14:28 Ur Specific Woody 1.010 (1.005-1.030) 07/22/23 14:28 Urine Protein Neg (Negative) 07/22/23 14:28 Urine Glucose (UA) Norm (Normal) 07/22/23 14:28 Urine Ketones Negative (Negative) 07/22/23 14:28 Urine Blood Neg (Negative) 07/22/23 14:28 Urine Nitrate Negative (Negative) 07/22/23 14:28 Urine Bilirubin Neg (Negative) 07/22/23 14:28 Urine Urobilinogen Norm mg/dL (Negative) 07/22/23 14:28 Ur Leukocyte Esterase Negative (Negative) 07/22/23 14:28 Nasal Influ A H1 2009 PCR Not detected (NOT DETECT) 07/22/23 16:30 Adenovirus (PCR) Not detected (NOT DETECT) 07/22/23 16:30 C. pneumoniae DNA (PCR) Not detected (NOT DETECT) 07/22/23 16:30 Coronavirus 229E (PCR) Not detected (NOT DETECT) 07/22/23 16:30 Human Metapneumovir PCR Not detected (NOT DETECT) 07/22/23 16:30 Influenza A (H1) PCR Not detected (NOT DETECT) 07/22/23 16:30 Influenza A (H3) PCR Not detected (NOT DETECT) 07/22/23 16:30 Influenza Type A (PCR) Not detected (NOT DETECT) 07/22/23 16:30 Influenza Type B (PCR) Not detected (NOT DETECT) 07/22/23 16:30 M. pneumoniae (PCR) Not detected (NOT DETECT) 07/22/23 16:30 Parainfluenza 1 (PCR) Not detected (NOT DETECT) 07/22/23 16:30 Parainfluenza 2 (PCR) Not detected (NOT DETECT) 07/22/23 16:30 Parainfluenza 3 (PCR) Not detected (NOT DETECT) 07/22/23 16:30 Parainfluenza 4 (PCR) Not detected (NOT DETECT) 07/22/23 16:30 RSV Type A (PCR) Not detected (NOT DETECT) 07/22/23 16:30 RSV Type B (PCR) Not detected (NOT DETECT) 07/22/23 16:30 Entero/Rhino (PCR) Not detected (NOT DETECT) 07/22/23 16:30 SARS-CoV-2 (PCR) Detected (NOT DETECT) A 07/22/23 16:30 Vitals Last Vital Signs Temp 98.7 F 07/26/23 00:00 Pulse 101 H 07/26/23 09:20 Resp 22 H 07/26/23 09:20 BP 115/68 07/26/23 00:00 Pulse Ox 92 07/26/23 09:20 O2 Del Method Nasal Cannula 07/26/23 09:20 O2 Flow Rate 4 07/26/23 09:20 FiO2 40 07/26/23 00:12 Discharge Plan Discharge Patient Disposition: Home Condition: Stable Prescriptions: New fluconazole 100 mg Tablet 200 mg PO DAILY Qty: 7 0RF ipratropium-albuterol 0.5 mg-3 mg(2.5 mg base)/3 mL Solution For Nebulization 3 ml inhalation QID.RESPIRATORY Qty: 90 0RF prednisone 10 mg tablet See Taper PO DIRECTED Qty: 42 0RF Taper: predniSONE 60-10 60 mg Daily for 2 Days and 0 Hour 50 mg Daily for 2 Days and 0 Hour 40 mg Daily for 2 Days and 0 Hour 30 mg Daily for 2 Days and 0 Hour 20 mg Daily for 2 Days and 0 Hour 10 mg Daily for 2 Days and 0 Hour Rx Instructions: see taper instructions Continued allopurinol 100 mg tablet 100 mg PO QAM albuterol sulfate 90 mcg/actuation HFA aerosol inhaler 2 puff INHALATION Q6H PRN (Reason: Shortness Of Breath) (DME) custom molded accommodative orthotic See Rx Instructions .ROUTE .MEDSUPPLY Qty: 1 0RF Rx Instructions: As directed albuterol sulfate 2.5 mg /3 mL (0.083 %) solution for nebulization 2.5 mg INHALATION Q4H PRN (Reason: Shortness Of Breath) amiodarone 200 mg tablet 200 mg PO DAILY Qty: 90 1RF (DME) oxygen-air delivery systems Device See Rx Instructions .Route Rx Instructions: 4 Liters per NC (DME) Diabetic Shoes with 3 pairs of inserts See Rx Instructions .Route .MEDSUPPLY Qty: 1 0RF Rx Instructions: As directed by HOME [employer] 160-9-4.8 mcg/actuation HFA aerosol inhaler 2 inh inhalation BID Qty: 10.7 3RF multivitamin Tablet 1 tab PO QAM tolterodine 2 mg capsule,extended release 24hr 2 mg PO QAM diltiazem HCl 180 mg capsule,extended release 24hr 180 mg PO QAM omeprazole 40 mg capsule,delayed release(DR/EC) 40 mg PO BID hydrocodone-acetaminophen 10-325 mg tablet 1 tab PO Q6H PRN (Reason: pain) Qty: 20 0RF Rx Instructions: May take half of a tab at a time ondansetron 4 mg tablet,disintegrating 4 mg PO Q6H PRN (Reason: nausea and vomiting) Qty: 14 0RF triamcinolone acetonide 0.1 % Cream 1 applic TOPICAL QID PRN (Reason: unknown) ferrous sulfate [Iron (ferrous sulfate)] 325 mg (65 mg iron) Tablet 325 mg PO DAILY docusate sodium 100 mg Capsule 100 mg PO BID PRN (Reason: Constipation) mupirocin 2 % Ointment 1 applic TOPICAL BID PRN (Reason: unknown) Xarelto 20 mg Tablet 20 mg PO QPM Hold Instructions: Resume on 08/01/23. Rx Instructions: must administer with evening meal fluoxetine 40 mg capsule 40 mg PO DAILY potassium chloride 10 mEq capsule, extended release 10 meq PO DAILY Qty: 30 0RF furosemide [Lasix] 20 mg tablet 20 mg PO DAILY Qty: 30 0RF metformin 500 mg tablet 500 mg PO DAILY Discharge Orders: Discharge Order (Routine); Ordered 07/26/23 Ordered By: Kana Wills Referrals: Sylvia Anthony MD [Primary Care Provider] - 08/05/23 9:15 am Discharge Diet: Diabetic Discharge Activity: Resume usual activity and Increase activity as tolerated Patient Instructions: Prednisone (By mouth) (predniSONE Intensol, Prednicot, Deltasone, Benny), Fluconazole (By mouth) (Diflucan), Ipratropium/Albuterol (By breathing), COPD (Chronic Obstructive Pulmonary Disease) (DC), Community Acquired Pneumonia (DC), Opioid Safety Activity Restrictions/Additional Instructions: Please continue all inhalers as before, nebulization treatment has been added. Please make sure to use CPAP at your home setting at bedtime. Steroid taper as prescribed. Discharge Attestations Time Spent in Discharge Care*: greater than 30 min Specific Discharge Activities: educating patient, educating and/or supporting family/caregiver, discussing with pcp/other providers, discussing with gearcase assembler/social workers/dc planners, documenting/other paperwork and evaluating patient/reviewing data Status at Discharge: Cognitive status at discharge: cognitively intact, Behavioral status at discharge: cooperative, Functional status at discharge: wheelchair bound, Overall status at discharge: patient is back to baseline Quality Metrics Clinical Quality Measures [ No reported AMI, CVA or VTE this stay] Coding Level of Care Code 00766 Total time (in minutes) for Discharge: 60 Diagnoses Acute exacerbation of chronic obstructive airways disease J44.1 Community acquired pneumonia J18.9 Klebsiella pneumonia J15.0 Transaminitis R74.01 Chest pain R07.9
[2023-07-26 11:21] LABS: Glucose Point of Care 305 mg/dL (70-110)
--- NOTE | 2023-07-26 11:23 | PC.NURSE ---
Spoke to Dr. Muro face to face in [place] to make sure he received the critical value from this am on patient. He acknowledged he did receive.
[2023-07-26] MEDS: ertapenem 1,000 MG in sodium chloride 0.9% (plus) 100 ML 200 MG IV (13:12)
--- NOTE | 2023-07-26 16:04 | PC.NURSE ---
called report to Umu Hagan LPN at [facility]. Vaughan has been removed. PICC line has been removed.
[2023-07-26 17:27] LABS: Glucose Point of Care 140 mg/dL (70-110)
[2023-07-26] MEDS: rivaroxaban 10 mg Tablet 20 MG PO (18:43)
--- NOTE | 2023-07-26 20:02 | PC.NURSE ---
Patients PICC lined pulled due to discharge. Patient ended up not going home. [id number]-[id number] not given
[2023-07-26 21:54] LABS: Glucose Point of Care 222 mg/dL (70-110)
[2023-07-27] VITALS (12 sets, daily range): BP systolic 89–131; BP diastolic 46–83; PULSE 81–108; RESP 18–20; TEMP 36.4–37; O2SAT 90–97; BMI 44.2
[2023-07-27] MEDS: allopurinol 100 mg Tablet PO (05:08)
[2023-07-27] MEDS: dilTIAZem ER (24HR) 180 mg Capsule PO (05:08)
[2023-07-27 07:16] LABS: Glucose Point of Care 94 mg/dL (70-110)
[2023-07-27] MEDS: ipratropium-albuterol 3 mL Neb INHALATION ×2 (08:26→16:04)
[2023-07-27] MEDS: fluoxetine 20 mg Capsule 40 MG PO (09:02)
[2023-07-27] MEDS: ferrous sulfate EC 325 mg Tablet PO (09:02)
[2023-07-27] MEDS: guaiFENesin 600 mg Tablet 1200 MG PO ×2 (09:02→18:14)
[2023-07-27] MEDS: pantoprazole DR 40 mg Tablet PO ×2 (09:03→18:14)
[2023-07-27] MEDS: fluconazole 100 mg Tablet 200 MG PO (09:03)
[2023-07-27] MEDS: predniSONE 20 mg Tablet 60 MG PO (09:32)
[2023-07-27] MEDS: amiodarone 200 mg Tablet PO (09:35)
--- NOTE | 2023-07-27 09:35 | PC.NURSE ---
Blood pressure rechecked. Automatic by Dr. Muro was 102/59. Dr. Muro stated to give Amiodarone, Prednisone and get an IV in the patient.
[2023-07-27 11:51] LABS: Glucose Point of Care 123 mg/dL (70-110)
--- NOTE | 2023-07-27 11:52 | ECG_ITS ---
[facility] Test Date: 2023-07-27 Pat Name: Arielle Cooper Department: Room: 258 Gender: Female Group Leader [employer] Processing: : 1950 Requested By: Kana Wills Order Number: [id number] Rocky MD: Pily Cary M.D. Measurements Intervals [place] Rate: 97 P: 0 OR: 0 QRS: -11 QRSD: 103 T: 43 QT: 368 QTc: 468 Interpretive Statements ATRIAL FIBRILLATION LOW QRS VOLTAGE IN PRECORDIAL LEADS [QRS DEFLECTION < 1.0 mV IN CHEST LEADS] Compared to ECG 07/22/2023 18:34:46 No significant change Electronically Signed On 07-28-2023 17:01:02 PRE PRESS MANAGER by Pily Cary M.D. [id number]
--- NOTE | 2023-07-27 12:13 | ECG_ITS ---
[facility] Test Date: 2023-07-27 Pat Name: Arielle Cooper Department: Room: 258 Gender: Female President Educational Institution: : 1950 Requested By: Kana Wills Order Number: [id number] Rocky MD: Pily Cary M.D. Measurements Intervals [place] Rate: 76 P: 0 MD: 0 QRS: -21 QRSD: 99 T: 29 QT: 388 QTc: 438 Interpretive Statements ATRIAL FIBRILLATION BORDERLINE LEFT AXIS DEVIATION [QRS AXIS < -20] ABNORMAL RHYTHM ECG Compared to ECG 07/27/2023 11:52:37 No significant changes Electronically Signed On 07-28-2023 17:00:37 ALLIED HEALTH PROFESSIONAL by Pily Cary M.D. [id number]
--- NOTE | 2023-07-27 13:26 | P.PN_ITS ---
Subjective 2 Subjective: Patient got discharged yesterday but could not go because did not have transportation arranged. Patient's PICC line and Vaughan catheter was removed. Post removal of PICC line continue IV line was not placed and patient did not receive any medications overnight. Today morning she was found to have low blood pressures. During examination her blood pressure was rechecked and it was 102/60 systolics. Patient denied any nausea, vomiting, headache. During the day patient did have an episode of A-fib with RVR. Otherwise she states her breathing is stable. Vitals/I&O/Wt Last Vital Signs Temp 98.2 F 07/27/23 12:00 Pulse 83 07/27/23 12:00 Resp 19 H 07/27/23 12:00 BP 126/83 07/27/23 12:00 Pulse Ox 90 07/27/23 12:00 O2 Del Method Nasal Cannula 07/27/23 12:00 O2 Flow Rate 4 07/27/23 08:27 FiO2 40 07/26/23 23:48 07/26/23 07/27/23 07/27/23 22:59 06:59 14:59 Intake Total 390 / 1590 360 / 360 Balance 390 / -10 360 / 360 Weight last 48 hrs Weight 124.284 kg Physical Exam 2 Const: COMMON NORMALS: patient oriented x3 and alert GENERAL APPEARANCE: c ooperative NUTRITIONAL APPEARANCE: obese ORIENTATION/CONSCIOUSNESS: Yes awake HENMT: COMMON NORMALS: oropharynx normal Neck/C-Spine: COMMON NORMALS: no JVD Resp: AUSCULTATION: rhonchi, wheezes ( mild) and diminished lung sounds Cardio: COMMON NORMALS: no JVD, regular rhythm, S1 normal heart sound present, S2 normal heart sound present and No murmurs present (Cardio) RHYTHM: regular rhythm HEART SOUNDS: S1 normal heart sound present and S2 normal heart sound present GI: COMMON NORMALS: Normal to inspection, nondistended, normoactive bowel sounds present, Soft to palpation and non-tender PALPATION: Yes Soft to palpation Extremity: COMMON NORMALS: no joint enlargement and no pedal edema Neuro: COMMON NORMALS: patient oriented x3 and moves all extremities S ENSORIUM/ORIENTATION: Yes alert Skin: COMMON NORMALS: no rashes or lesions noted GENERAL SKIN EXAM: no rashes or lesions noted Data 07/26/23 05:03 07/26/23 05:03 Micro: Microbiology 07/23/23 09:27 Gram Stain - Final Sputum - Expectorated Sputum Sputum Culture - Final Brandi albicans A&P Assessment and plan (1) Acute exacerbation of chronic obstructive airways disease: In setting of recent COVID-19 pneumonia along with possibility of left lower lobe pneumonia. Most likely in setting of no CPAP at the correction along with discontinuation of baseline inhalation treatment. Improving. Wean Solu-Medrol to 40 mg every 8 hourly. Continue with meropenem given recent pneumonia to finish a course of antibiotics in 07/26. DuoNebs every 4 hours, Pulmicort twice daily. Tessalon Perles every 8 hourly, aggressive pulmonary toilet. Sputum culture from this time showing yeast. Most likely contaminant but for now we will start on oral fluconazole 200 mg daily for next 7 days. (2) Community acquired pneumonia: Recent sputum culture positive for MDRO Klebsiella. Continue meropenem. Will dose 07/26. Sputum culture at this time growing yeast. Fluconazole as above. (3) Klebsiella pneumonia: Recent MDRO Klebsiella pneumonia on review of sputum culture. (4) Transaminitis: Noted mild transaminitis, AST 50, ALT 107. Reassess liver function daily. (5) Chest pain: Episode of chest pain and atrial fibrillation this morning. Currently no tachycardia. Baseline troponin mildly elevated at 24, mild elevation persists at 2 hours 26.39. Levels are lower than previous baseline. Complete troponin EKG series. EKG with atrial fibrillation, which is known, no suggestion of acute HI on my interpretation pending formal read. Plan ARJUN: BiPAP nightly for sleep apnea. DM2: Accu-Cheks, sliding scale insulin. Hemoptysis: Resolved, has been restarted on Xarelto which she has been tolerating. CHF: Continue Lasix, received IV dose of Lasix in the ER for possible exacerbation. Difficult to assess volume status. Reassess. DC Vaughan catheter. Multiple other medical problems. DNR/DNI. Carb consistent cardiac diet Protonix for PUD prophylaxis Xarelto will suffice as DVT prophylaxis. Plan for the day: Will hold off on discharge. Hold off on antihypertensives. Hypotension most likely in setting of mild adrenal insufficiency as patient has been on high-dose steroids. Give patient 40 mg of oral Lasix, 60 mg of oral prednisone. Continue telemetry. Continue all other oral medications. If patient's hemodynamics remained stable within next 24 hours we will plan to transition back to SNF. Attestations 2 Medical Necessity Statement*: Requires further hospitalization for hypotension as patient requires further monitoring, COPD exacerbation in setting of recent COVID-19 Klebsiella pneumonia Diagnoses Acute exacerbation of chronic obstructive airways disease J44.1 Community acquired pneumonia J18.9 Klebsiella pneumonia J15.0 Transaminitis R74.01 Chest pain R07.9
--- NOTE | 2023-07-27 15:16 | PC.NURSE ---
Notified Dr. Muro of patient having chest pains. Patient had gotten up with assist to bedside commode, upon getting back to bed patient stated having chest pains and heart rate was bouncing from 135 to 145. Patient was assymptomatic with a blood pressure of 126/75, resp of 20. Dr. Wills ordered a [address] Wills it was complete and he ordered another EKG. Both order were put in. Patient is doing good with no chest pains at this time.
[2023-07-27 17:13] LABS: Glucose Point of Care 183 mg/dL (70-110)
[2023-07-27] MEDS: insulin lispro 100 unit/1 mL SUBCUT ×2 (18:13→22:30)
[2023-07-27] MEDS: rivaroxaban 10 mg Tablet 20 MG PO (18:14)
[2023-07-27 22:04] LABS: Glucose Point of Care 240 mg/dL (70-110)
[2023-07-28] VITALS (17 sets, daily range): BP systolic 96–130; BP diastolic 59–87; PULSE 68–122; RESP 16–22; TEMP 36.4–36.6; O2SAT 91–97
[2023-07-28] MEDS: allopurinol 100 mg Tablet PO (05:39)
[2023-07-28] MEDS: dilTIAZem ER (24HR) 180 mg Capsule PO (05:39)
[2023-07-28 06:44] LABS: Glucose Point of Care 94 mg/dL (70-110)
[2023-07-28] MEDS: predniSONE 20 mg Tablet 60 MG PO ×2 (08:47→09:59)
[2023-07-28] MEDS: pantoprazole DR 40 mg Tablet PO ×2 (08:47→17:29)
[2023-07-28] MEDS: ferrous sulfate EC 325 mg Tablet PO (08:47)
[2023-07-28] MEDS: fluconazole 100 mg Tablet 200 MG PO (08:47)
[2023-07-28] MEDS: fluoxetine 20 mg Capsule 40 MG PO (08:47)
[2023-07-28] MEDS: amiodarone 200 mg Tablet PO (08:47)
[2023-07-28] MEDS: guaiFENesin 600 mg Tablet 1200 MG PO ×2 (08:51→17:28)
[2023-07-28] MEDS: dilTIAZem 60 mg Tablet PO (09:59)
[2023-07-28] MEDS: FUROsemide 40 mg Tablet PO (09:59)
[2023-07-28 11:01] LABS: Glucose Point of Care 102 mg/dL (70-110)
[2023-07-28] MEDS: ipratropium-albuterol 3 mL Neb INHALATION ×3 (11:15→21:01)
[2023-07-28] MEDS: FUROsemide 10 mg/mL SDV 4mL 40 MG IVP (13:53)
--- NOTE | 2023-07-28 15:40 | PC.NURSE ---
2095-I was called by floor nurse, Yuliya, due to the midline that was just put in was bleeding and she could not get a blood return. I checked for blood return, but could not get any. I pulled the catheter out to leave 3cm external length and got good blood return there. It flushes easily and I cleaned it up and changed the dressing.
[2023-07-28 16:38] LABS: Glucose Point of Care 360 mg/dL (70-110)
[2023-07-28] MEDS: methylPREDNISolone sod succ 40 mg/mL INJ IVP (16:56)
[2023-07-28] MEDS: insulin lispro 100 unit/1 mL SUBCUT ×2 (17:29→21:13)
[2023-07-28] MEDS: rivaroxaban 10 mg Tablet 20 MG PO (17:29)
--- NOTE | 2023-07-28 17:48 | P.PN_ITS ---
Subjective 2 Subjective: Today morning patient complains of mild shortness of breath. She states she is scared. Denies any nausea, vomiting, headache. Heart rate mildly elevated running up to 110 to 120 bpm. Currently on 5 L of oxygen supplementation saturating more than 90%. Baseline is 4 L. Given mild worsening of shortness of breath, A-fib with RVR discharge has been discontinued. Vitals/I&O/Wt Last Vital Signs Temp 97.6 F 07/28/23 03:35 Pulse 92 07/28/23 16:03 Resp 16 07/28/23 16:00 BP 107/69 07/28/23 17:31 Pulse Ox 91 07/28/23 16:00 O2 Del Method Nasal Cannula 07/28/23 16:00 O2 Flow Rate 5 07/28/23 16:00 FiO2 40 07/28/23 00:24 07/28/23 07/28/23 07/28/23 06:59 14:59 22:59 Intake Total 720 / 720 480 / 1200 Output Total 2600 / 2600 Balance 720 / 720 -2120 / -1400 Weight last 48 hrs Weight 122.47 kg Weight 124.284 kg Physical Exam 2 Const: COMMON NORMALS: patient oriented x3 and alert GENERAL APPEARANCE: c ooperative NUTRITIONAL APPEARANCE: obese ORIENTATION/CONSCIOUSNESS: Yes awake HENMT: COMMON NORMALS: oropharynx normal Neck/C-Spine: COMMON NORMALS: no JVD Resp: AUSCULTATION: rhonchi, wheezes ( mild) and diminished lung sounds Cardio: COMMON NORMALS: no JVD, regular rhythm, S1 normal heart sound present, S2 normal heart sound present and No murmurs present (Cardio) RHYTHM: regular rhythm HEART SOUNDS: S1 normal heart sound present and S2 normal heart sound present GI: COMMON NORMALS: Normal to inspection, nondistended, normoactive bowel sounds present, Soft to palpation and non-tender PALPATION: Yes Soft to palpation Extremity: COMMON NORMALS: no joint enlargement and no pedal edema Neuro: COMMON NORMALS: patient oriented x3 and moves all extremities S ENSORIUM/ORIENTATION: Yes alert Skin: COMMON NORMALS: no rashes or lesions noted GENERAL SKIN EXAM: no rashes or lesions noted Urinary Catheter Management: Vaughan: Cath Placed During This Visit: yes Urinary Catheter Date of Insertion: 07/28/23 Urinary Catheter Time of Insertion: 16:17 Data 07/26/23 05:03 07/26/23 05:03 A&P Assessment and plan (1) Acute exacerbation of chronic obstructive airways disease: In setting of recent COVID-19 pneumonia along with possibility of left lower lobe pneumonia. Most likely in setting of no CPAP at the long term along with discontinuation of baseline inhalation treatment. Improving. Wean Solu-Medrol to 40 mg every 8 hourly. Continue with meropenem given recent pneumonia to finish a course of antibiotics in 07/26. DuoNebs every 4 hours, Pulmicort twice daily. Tessalon Perles every 8 hourly, aggressive pulmonary toilet. Sputum culture from this time showing yeast. Most likely contaminant but for now we will start on oral fluconazole 200 mg daily for next 7 days. (2) Community acquired pneumonia: Recent sputum culture positive for MDRO Klebsiella. Continue meropenem. Will dose 07/26. Sputum culture at this time growing yeast. Fluconazole as above. (3) Klebsiella pneumonia: Recent MDRO Klebsiella pneumonia on review of sputum culture. (4) Transaminitis: Noted mild transaminitis, AST 50, ALT 107. Reassess liver function daily. (5) Chest pain: Episode of chest pain and atrial fibrillation this morning. Currently no tachycardia. Baseline troponin mildly elevated at 24, mild elevation persists at 2 hours 26.39. Levels are lower than previous baseline. Complete troponin EKG series. EKG with atrial fibrillation, which is known, no suggestion of acute IA on my interpretation pending formal read. Plan ARJUN: BiPAP nightly for sleep apnea. DM2: Accu-Cheks, sliding scale insulin. Hemoptysis: Resolved, has been restarted on Xarelto which she has been tolerating. CHF: Continue Lasix, received IV dose of Lasix in the ER for possible exacerbation. Difficult to assess volume status. Reassess. DC Vaughan catheter. Multiple other medical problems. DNR/DNI. Carb consistent cardiac diet Protonix for PUD prophylaxis Xarelto will suffice as DVT prophylaxis. Plan for the day: No more discharge. Blood pressure is better. Patient does have A-fib with RVR. Increase dose of Cardizem to [address] midline. Start on Solu-Medrol 40 mg every 12 hourly. IV Lasix 40 mg one-time. Replace Vaughan. Oxygen supplementation keeping saturation over 88%. Continue with DuoNebs every 6, Pulmicort twice daily. Recheck CBC and CMP in AM. Chest x-ray. Attestations 2 Medical Necessity Statement*: Requires further hospitalization for management of A-fib with RVR, worsening of baseline hypoxia in setting of COPD exacerbation, mild congestive heart failure. Diagnoses Acute exacerbation of chronic obstructive airways disease J44.1 Community acquired pneumonia J18.9 Klebsiella pneumonia J15.0 Transaminitis R74.01 Chest pain R07.9
--- NOTE | 2023-07-28 17:51 | XRR_ITS ---
PROCEDURE INFORMATION: Exam: XR Chest Exam date and time: 07/28/2023 7:03 PM Age: 73 years old Clinical indication: Shortness of breath; Additional info: SOB TECHNIQUE: Imaging protocol: Radiologic exam of the chest. Views: 1 view. COMPARISON: CR (CHEST, ) 07/22/2023 1:32 PM FINDINGS: Lungs: Increased opacification of the left lower lung, likely combination of new/increasing pleural fluid and pulmonary infiltrate. Increased opacities in the right lower lung. Background emphysema. Pleural spaces: See Lungs finding. Heart/Mediastinum: Mild cardiomegaly. 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 Bones/joints: No acute abnormality. XR/XR chest 1V portable [id number] IMPRESSION: 1. Increased opacification of the left lower lung, may represent combination of new/increasing pleural fluid, infiltrate, and/or atelectasis. 2. Increased opacification in the right lower lung, could represent atelectasis, infiltrate, and/or pleural effusion.
[2023-07-28 20:56] LABS: Glucose Point of Care 416 mg/dL (70-110)
[2023-07-28] MEDS: budesonide 0.5 mg/2 mL Neb INHALATION (21:01)
[2023-07-29] VITALS (62 sets, daily range): BP systolic 105–129; BP diastolic 65–83; PULSE 0–126; RESP 17–39; TEMP 36.4–37.1; O2SAT 79–96
[2023-07-29] MEDS: methylPREDNISolone sod succ 40 mg/mL INJ IVP ×2 (03:37→17:55)
[2023-07-29 05:50] LABS: Basophils % 0.1 %; Hematocrit 37.6 % (36-47); Lymphocytes # 0.3 10^3/uL (0.8-4.8); Lymphocytes % 2.8 %; Mean Corpuscular HGB Conc 28.7 g/dL (30-55); Mean Corpuscular Hemoglobin 26.9 pg (27-33); Mean Corpuscular Volume 93.5 fl (85-98); Mean Platelet Volume 9.1 fL (7.4-10.4); Monocytes # 0.3 10^3/uL (0.2-0.9); Monocytes % 2.7 %; Neutrophils # 9.06 10^3/uL (1.8-7.7); Neutrophils % 93.2 %; Nucleated Red Blood Cells % 0 %; Platelet Count 253 10^3/cmm (157-399); Red Blood Count 4.02 10^6/uL (3.85-5.65); Red Cell Distribution Width 14.7 % (12.1-15.1); White Blood Count 9.72 10^3/uL (3.29-11.43)
[2023-07-29] MEDS: dilTIAZem ER (24HR) 240 mg Capsule PO (06:03)
[2023-07-29] MEDS: allopurinol 100 mg Tablet PO (06:03)
[2023-07-29 06:16] LABS: Alanine Aminotransferase 47 U/L (0-33); Albumin Level 2.9 g/dL (3.5-5.2); Alkaline Phosphatase 106 U/L (35-105); Anion Gap 5.2 (5-19); Aspartate Amino Transferase 12 U/L (0-32); Blood Urea Nitrogen 28 mg/dL (8-23); Calcium 9.6 mg/dL (8.5-10.5); Chloride 93 mmol/L (98-107); Globulin 2.3 g/dL (1.3-4.6); Glucose 207 mg/dL (65-115); Osmolality Calculated 304 mOsm/kg (285-295); Potassium 4.2 mmol/L (3.5-5.1); Sodium 141 mmol/L (136-145); Total Bilirubin 0.4 mg/dL (0.15-1.2); Total Protein 5.2 g/dL (6.6-8.7)
[2023-07-29 06:45] LABS: Glucose Point of Care 180 mg/dL (70-110)
[2023-07-29 06:53] LABS: Carbon Dioxide 47 mmol/L (22-29)
[2023-07-29] MEDS: ipratropium-albuterol 3 mL Neb INHALATION (08:14)
[2023-07-29] MEDS: budesonide 0.5 mg/2 mL Neb INHALATION ×2 (08:14→22:08)
[2023-07-29] MEDS: insulin lispro 100 unit/1 mL SUBCUT ×4 (09:30→21:26)
[2023-07-29] MEDS: amiodarone 200 mg Tablet PO (09:31)
[2023-07-29] MEDS: ferrous sulfate EC 325 mg Tablet PO (09:31)
[2023-07-29] MEDS: pantoprazole DR 40 mg Tablet PO ×2 (09:31→17:55)
[2023-07-29] MEDS: guaiFENesin 600 mg Tablet 1200 MG PO ×2 (09:31→17:55)
[2023-07-29] MEDS: fluoxetine 20 mg Capsule 40 MG PO (09:31)
[2023-07-29] MEDS: fluconazole 100 mg Tablet 200 MG PO (09:31)
[2023-07-29] MEDS: metoprolol tartrate 25 mg Tablet PO ×2 (10:41→21:27)
[2023-07-29] MEDS: acetaZOLAMIDE 250 mg Tablet 500 MG PO (10:41)
[2023-07-29 10:49] LABS: Glucose Point of Care 229 mg/dL (70-110)
[2023-07-29] MEDS: ALPRAZolam 0.5 mg Tablet PO (10:51)
--- NOTE | 2023-07-29 13:01 | PC.SOCIAL ---
IMM Update pg 2 of IMM updated and reviewed w/ patient. Copy provided and copy dated, initialed and placed in chart.
[2023-07-29] MEDS: ipratropium 0.5 mg/2.5 mL Neb INHALATION ×2 (13:51→22:08)
[2023-07-29] MEDS: levalbuterol 0.63 mg/3 mL Neb INHALATION ×2 (13:51→22:08)
--- NOTE | 2023-07-29 14:11 | PM.PN ---
Subjective Subjective: No acute vents overnight. Patient still complaining of shortness of breath on minimal ambulation. Patient's heart rate trending up to more than 110 on minimal movement otherwise it rest rate controlled. Has remained hemodynamically stable and afebrile otherwise. On 4 L of oxygen supplementation. Patient denies any chest pain. Document urine output of around 3.6 L in last 24 hours. Vitals/I&O/Wt Last Vital Signs Temp 98.7 F 07/29/23 10:29 Pulse 66 07/29/23 13:51 Resp 21 H 07/29/23 13:51 BP 121/80 07/29/23 10:29 Pulse Ox 95 07/29/23 13:51 O2 Del Method Nasal Cannula 07/29/23 13:51 O2 Flow Rate 4 07/29/23 13:51 FiO2 40 07/28/23 23:29 07/28/23 07/29/23 07/29/23 22:59 06:59 14:59 Intake Total 480 / 1200 240 / 240 Output Total 3300 / 3300 350 / 3650 Balance -2820 / -2100 -350 / -2450 240 / 240 Weight last 48 hrs Weight 123.434 kg Weight 122.47 kg Physical Exam Const: COMMON NORMALS: patient oriented x3 and alert GENERAL APPEARANCE: cooperative NUTRITIONAL APPEARANCE: obese ORIENTATION/CONSCIOUSNESS: Yes awake HENMT: COMMON NORMALS: oropharynx normal Neck/C-Spine: COMMON NORMALS: no JVD Resp: AUSCULTATION: rhonchi, wheezes ( mild) and diminished lung sounds Cardio: COMMON NORMALS: no JVD, regular rhythm, S1 normal heart sound present, S2 normal heart sound present and No murmurs present (Cardio) RHYTHM: regular rhythm HEART SOUNDS: S1 normal heart sound present and S2 normal heart sound present GI: COMMON NORMALS: Normal to inspection, nondistended, normoactive bowel sounds present, Soft to palpation and non-tender PALPATION: Yes Soft to palpation Extremity: COMMON NORMALS: no joint enlargement and no pedal edema Neuro: COMMON NORMALS: patient oriented x3 and moves all extremities SENSORIUM/ORIENTATION: Yes alert Skin: COMMON NORMALS: no rashes or lesions noted GENERAL SKIN EXAM: no rashes or lesions noted Urinary Catheter Management: Vaughan: Cath Placed During This Visit: yes Reason for Continuing Indwelling Catheter: Other Urinary Catheter Date of Insertion: 07/28/23 Urinary Catheter Time of Insertion: 16:17 Data 07/29/23 05:43 07/29/23 05:43 A&P Assessment and plan (1) Acute exacerbation of chronic obstructive airways disease: In setting of recent COVID-19 pneumonia along with possibility of left lower lobe pneumonia. Most likely in setting of no CPAP at the [place] [facility] along with discontinuation of baseline inhalation treatment. Continue with Solu-Medrol 40 mg every 12 hourly. Will wean down further within the next 24 hours. Finished course of IV antibiotics for Klebsiella pneumonia on 07/26. Switch DuoNebs to ipratropium, Xopenex every 4 hour, Pulmicort twice daily. Out of bed to chair. Tessalon Perles every 8 hourly, aggressive pulmonary toilet. Current fluconazole to finish a 7-day course. (2) Atrial fibrillation with RVR: Heart rate trending up on minimal ambulation. Cardizem increased to 240 mg daily. Add metoprolol 25 mg twice daily. Continue with Xarelto for anticoagulation. (3) CHF (congestive heart failure): Last echocardiogram from 03/20 shows an EF of 60 to 65%, grade 2 diastolic dysfunction. Patient having occasional episodes of A-fib with RVR. Continue with IV Lasix 40 mg daily. Patient developing contraction alkalosis today. Switch to oral Lasix 40 mg daily from tomorrow. Add Diamox 500 mg daily. Monitor BMP daily for now. Strict input charting, daily weights. Vaughan catheterization. (4) Community acquired pneumonia: Recent sputum culture positive for MDRO Klebsiella. Finish course of antibiotics on 07/26. (5) Klebsiella pneumonia: Recent MDRO Klebsiella pneumonia on review of sputum culture. (6) Transaminitis: Stable (7) Chest pain: Present on admission. Troponin cycled trending down. Given worsening of respiratory status on and off we will repeat troponin cycle. (8) Anticoagulation adequate with anticoagulant therapy: (9) Essential hypertension: Goal blood pressure less than 140/90 mmHg. Blood pressure stable. Continue with increased dose of Cardizem and new dose of metoprolol for now. Continue to monitor. (10) Diabetes: Plan ARJUN: BiPAP nightly for sleep apnea. DM2: Accu-Cheks, sliding scale insulin. Hemoptysis: Resolved, has been restarted on Xarelto which she has been tolerating. CHF: Continue Lasix, received IV dose of Lasix in the ER for possible exacerbation. Difficult to assess volume status. Reassess. DC Vaughan catheter. Multiple other medical problems. DNR/DNI. Carb consistent cardiac diet Protonix for PUD prophylaxis Xarelto will suffice as DVT prophylaxis. Transfer to CSU. Attestations Medical Necessity Statement*: Requires further hospitalization for management of hypoxia in setting of congestive heart failure, A-fib with RVR, COPD exacerbation leading to acute on chronic hypoxic respiratory failure. Diagnoses Acute exacerbation of chronic obstructive airways disease J44.1 Atrial fibrillation with RVR I48.91 CHF (congestive heart failure) I50.9 Community acquired pneumonia J18.9 Klebsiella pneumonia J15.0 Transaminitis R74.01 Chest pain R07.9 Anticoagulation adequate with anticoagulant therapy Z79.01 Essential hypertension I10 Diabetes E11.9
--- NOTE | 2023-07-29 14:26 | ECG_ITS ---
[facility] Test Date: 2023-07-29 Pat Name: Arielle Cooper Department: Room: 105 Gender: Female Matrix Plater: : 1950 Requested By: Kana Wills Order Number: [id number] Rocky MD: Belen William M.D. Measurements Intervals [place] Rate: 57 P: 0 [place]: 0 QRS: -10 QRSD: 104 T: 18 QT: 418 QTc: 409 Interpretive Statements ATRIAL FIBRILLATION WITH SLOW VENTRICULAR RESPONSE ABNORMAL RHYTHM ECG Compared to ECG 07/29/2023 16:40:05 No significant changes Electronically Signed On 07-30-2023 5:57:17 ASSISTANT PRODUCER by Belen William M.D. [id number]
[2023-07-29 15:32] LABS: Troponin(5th) Baseline 22 ng/L (0-10)
--- NOTE | 2023-07-29 16:26 | ECG_ITS ---
[facility] Test Date: 2023-07-29 Pat Name: Arielle Cooper Department: Room: 105 Gender: Female Airline Pilot/First Officer: : 1950 Requested By: Kaan Wills Order Number: [id number] Rocky MD: Belen William M.D. Measurements Intervals [place] Rate: 72 P: 0 [place]: 0 QRS: -10 QRSD: 105 T: 13 QT: 406 QTc: 447 Interpretive Statements ATRIAL FIBRILLATION ABNORMAL RHYTHM ECG Compared to ECG 07/27/2023 12:13:09 No significant changes Electronically Signed On 07-30-2023 6:10:10 ARTS AND CRAFTS INSTRUCTOR by Belen William M.D. [id number]
[2023-07-29 17:32] LABS: Glucose Point of Care 142 mg/dL (70-110)
[2023-07-29 17:36] LABS: Troponin 5 2HR 25.16 ng/L (0-10); Troponin 5 2HR Delta 3.16 ABS# (0-10)
[2023-07-29] MEDS: rivaroxaban 10 mg Tablet 20 MG PO (17:55)
[2023-07-29 21:41] LABS: Glucose Point of Care 226 mg/dL (70-110)
[2023-07-30] VITALS (19 sets, daily range): BP systolic 106–134; BP diastolic 64–86; PULSE 51–70; RESP 18–22; TEMP 36.1–37.4; O2SAT 90–99; BMI 42.9
[2023-07-30] MEDS: levalbuterol 0.63 mg/3 mL Neb INHALATION ×4 (02:12→19:22)
[2023-07-30] MEDS: ipratropium 0.5 mg/2.5 mL Neb INHALATION ×4 (02:12→19:22)
[2023-07-30] MEDS: methylPREDNISolone sod succ 40 mg/mL INJ IVP (03:02)
[2023-07-30 03:53] LABS: Basophils % 0.1 %; Lymphocytes # 0.3 10^3/uL (0.8-4.8); Lymphocytes % 2.5 %; Mean Corpuscular HGB Conc 27.9 g/dL (30-55); Mean Corpuscular Hemoglobin 26.3 pg (27-33); Mean Corpuscular Volume 94.3 fl (85-98); Mean Platelet Volume 9.2 fL (7.4-10.4); Monocytes # 0.4 10^3/uL (0.2-0.9); Monocytes % 2.8 %; Neutrophils # 12.63 10^3/uL (1.8-7.7); Neutrophils % 93.7 %; Nucleated Red Blood Cells % 0 %; Platelet Count 268 10^3/cmm (157-399); Red Blood Count 4.03 10^6/uL (3.85-5.65); Red Cell Distribution Width 14.8 % (12.1-15.1); White Blood Count 13.48 10^3/uL (3.29-11.43)
[2023-07-30 04:17] LABS: Alanine Aminotransferase 40 U/L (0-33); Alkaline Phosphatase 104 U/L (35-105); Anion Gap 6.2 (5-19); Aspartate Amino Transferase 12 U/L (0-32); Blood Urea Nitrogen 26 mg/dL (8-23); Calcium 9.8 mg/dL (8.5-10.5); Chloride 99 mmol/L (98-107); Globulin 2.1 g/dL (1.3-4.6); Glucose 198 mg/dL (65-115); Osmolality Calculated 306 mOsm/kg (285-295); Potassium 4.2 mmol/L (3.5-5.1); Sodium 143 mmol/L (136-145); Total Bilirubin 0.4 mg/dL (0.15-1.2); Total Protein 5.1 g/dL (6.6-8.7)
[2023-07-30 04:19] LABS: Carbon Dioxide 42 mmol/L (22-29)
[2023-07-30] MEDS: dilTIAZem ER (24HR) 240 mg Capsule PO (05:38)
[2023-07-30] MEDS: allopurinol 100 mg Tablet PO (05:38)
[2023-07-30 06:38] LABS: Glucose Point of Care 179 mg/dL (70-110)
[2023-07-30] MEDS: ferrous sulfate EC 325 mg Tablet PO (08:32)
[2023-07-30] MEDS: fluconazole 100 mg Tablet 200 MG PO (08:33)
[2023-07-30] MEDS: amiodarone 200 mg Tablet PO (08:33)
[2023-07-30] MEDS: fluoxetine 20 mg Capsule 40 MG PO (08:33)
[2023-07-30] MEDS: acetaZOLAMIDE 250 mg Tablet 500 MG PO (08:33)
[2023-07-30] MEDS: guaiFENesin 600 mg Tablet 1200 MG PO ×2 (08:33→17:24)
[2023-07-30] MEDS: FUROsemide 40 mg Tablet PO (08:34)
[2023-07-30] MEDS: metoprolol tartrate 25 mg Tablet PO (08:34)
[2023-07-30] MEDS: pantoprazole DR 40 mg Tablet PO ×2 (08:36→17:25)
[2023-07-30] MEDS: budesonide 0.5 mg/2 mL Neb INHALATION ×2 (08:44→19:22)
[2023-07-30] MEDS: insulin lispro 100 unit/1 mL SUBCUT ×3 (08:47→17:24)
[2023-07-30 12:34] LABS: Glucose Point of Care 302 mg/dL (70-110)
--- NOTE | 2023-07-30 15:54 | P.PN_ITS ---
Subjective 2 Subjective: No acute events overnight. Patient today morning seen in CSU. Sitting in recliner. Heart rate running in low 50s. As per the nursing staff heart rate has mostly between 50-60. Patient denies of having any dizziness. States he is feeling slightly better. Denies any nausea vomiting, headache. Saturating well on her baseline 4 L of oxygen supplementation. Vitals/I&O/Wt Last Vital Signs Temp 96.9 F L 07/30/23 07:31 Pulse 59 L 07/30/23 15:30 Resp 20 H 07/30/23 15:25 BP 117/76 07/30/23 11:43 Pulse Ox 97 07/30/23 15:25 O2 Del Method Nasal Cannula 07/30/23 15:25 O2 Flow Rate 4 07/30/23 15:25 FiO2 40 07/30/23 06:24 07/30/23 07/30/23 07/30/23 06:59 14:59 22:59 Intake Total 600 / 1440 480 / 480 Output Total 900 / 1750 330 / 330 Balance -300 / -310 150 / 150 Weight last 48 hrs Weight 120.712 kg Weight 121.381 kg Weight 123.434 kg Physical Exam 2 Const: COMMON NORMALS: patient oriented x3 and alert GENERAL APPEARANCE: c ooperative NUTRITIONAL APPEARANCE: obese ORIENTATION/CONSCIOUSNESS: Yes awake HENMT: COMMON NORMALS: oropharynx normal Neck/C-Spine: COMMON NORMALS: no JVD Resp: AUSCULTATION: rhonchi, wheezes ( mild) and diminished lung sounds Cardio: COMMON NORMALS: no JVD, regular rhythm, S1 normal heart sound present, S2 normal heart sound present and No murmurs present (Cardio) RHYTHM: regular rhythm HEART SOUNDS: S1 normal heart sound present and S2 normal heart sound present GI: COMMON NORMALS: Normal to inspection, nondistended, normoactive bowel sounds present, Soft to palpation and non-tender PALPATION: Yes Soft to palpation Extremity: COMMON NORMALS: no joint enlargement and no pedal edema Neuro: COMMON NORMALS: patient oriented x3 and moves all extremities S ENSORIUM/ORIENTATION: Yes alert Skin: COMMON NORMALS: no rashes or lesions noted GENERAL SKIN EXAM: no rashes or lesions noted Urinary Catheter Management: Vaughan: Cath Placed During This Visit: yes Reason for Continuing Indwelling Catheter: Other Urinary Catheter Date of Insertion: 07/28/23 Urinary Catheter Time of Insertion: 16:17 Data 07/30/23 03:19 07/30/23 03:19 A&P Assessment and plan (1) Acute exacerbation of chronic obstructive airways disease: In setting of recent COVID-19 pneumonia along with possibility of left lower lobe pneumonia. Most likely in setting of no CPAP at the halfway along with discontinuation of baseline inhalation treatment. Continue with Solu-Medrol 40 mg every 12 hourly. Will wean down further within the next 24 hours. Finished course of IV antibiotics for Klebsiella pneumonia on 07/26. Switch DuoNebs to ipratropium, Xopenex every 4 hour, Pulmicort twice daily. Out of bed to chair. Tessalon Perles every 8 hourly, aggressive pulmonary toilet. Current fluconazole to finish a 7-day course. (2) Atrial fibrillation with RVR: Heart rate trending up on minimal ambulation. Cardizem increased to 240 mg daily. Add metoprolol 25 mg twice daily. Continue with Xarelto for anticoagulation. (3) CHF (congestive heart failure): Last echocardiogram from 03/20 shows an EF of 60 to 65%, grade 2 diastolic dysfunction. Patient having occasional episodes of A-fib with RVR. Continue with IV Lasix 40 mg daily. Patient developing contraction alkalosis today. Switch to oral Lasix 40 mg daily from tomorrow. Add Diamox 500 mg daily. Monitor BMP daily for now. Strict input charting, daily weights. Vaughan catheterization. (4) Community acquired pneumonia: Recent sputum culture positive for MDRO Klebsiella. Finish course of antibiotics on 07/26. (5) Klebsiella pneumonia: Recent MDRO Klebsiella pneumonia on review of sputum culture. (6) Transaminitis: Stable (7) Chest pain: Present on admission. Troponin cycled trending down. Given worsening of respiratory status on and off we will repeat troponin cycle. (8) Anticoagulation adequate with anticoagulant therapy: (9) Essential hypertension: Goal blood pressure less than 140/90 mmHg. Blood pressure stable. Continue with increased dose of Cardizem and new dose of metoprolol for now. Continue to monitor. (10) Diabetes: Plan ARJUN: BiPAP nightly for sleep apnea. DM2: Accu-Cheks, sliding scale insulin. Hemoptysis: Resolved, has been restarted on Xarelto which she has been tolerating. CHF: Continue Lasix, received IV dose of Lasix in the ER for possible exacerbation. Difficult to assess volume status. Reassess. DC Vaughan catheter. Multiple other medical problems. DNR/DNI. Carb consistent cardiac diet Protonix for PUD prophylaxis Xarelto will suffice as DVT prophylaxis. Plan for the day: Continue with oral Cardizem at 300 mg daily. Hold off on metoprolol dose in the evening. Changed to 12.5 mcg twice daily. Monitor for bradycardia or heart block. Wean Solu-Medrol to 40 mg daily. Continue with nebulization treatment with ipratropium and Xopenex. Oral Lasix 40 mg daily. Continue with current dose of acetazolamide. Oxygen supplementation keeping saturation over 88%. If patient remains hemodynamically stable and at baseline oxygen supplementation plan to discharge in the next 24 hours to SNF. Attestations 2 Medical Necessity Statement*: Requires further hospitalization for management of hypoxic respiratory failure in setting of CHF, A-fib with RVR and COPD exacerbation Diagnoses Acute exacerbation of chronic obstructive airways disease J44.1 Atrial fibrillation with RVR I48.91 CHF (congestive heart failure) I50.9 Community acquired pneumonia J18.9 Klebsiella pneumonia J15.0 Transaminitis R74.01 Chest pain R07.9 Anticoagulation adequate with anticoagulant therapy Z79.01 Essential hypertension I10 Diabetes E11.9
[2023-07-30 17:01] LABS: Glucose Point of Care 195 mg/dL (70-110)
[2023-07-30] MEDS: rivaroxaban 10 mg Tablet 20 MG PO (17:24)
[2023-07-30 21:08] LABS: Glucose Point of Care 133 mg/dL (70-110)
[2023-07-31] VITALS (17 sets, daily range): BP systolic 102–128; BP diastolic 63–76; PULSE 59–77; RESP 19–25; TEMP 35.8–37.1; O2SAT 87–97; BMI 42.9
[2023-07-31] MEDS: levalbuterol 0.63 mg/3 mL Neb INHALATION ×4 (02:30→20:42)
[2023-07-31] MEDS: ipratropium 0.5 mg/2.5 mL Neb INHALATION ×4 (03:55→20:42)
[2023-07-31] MEDS: allopurinol 100 mg Tablet PO (06:28)
[2023-07-31] MEDS: dilTIAZem ER (24HR) 240 mg Capsule PO (06:28)
[2023-07-31 06:36] LABS: Glucose Point of Care 114 mg/dL (70-110)
[2023-07-31] MEDS: fluoxetine 20 mg Capsule 40 MG PO (08:33)
[2023-07-31] MEDS: FUROsemide 40 mg Tablet PO (08:33)
[2023-07-31] MEDS: acetaZOLAMIDE 250 mg Tablet 500 MG PO (08:33)
[2023-07-31] MEDS: fluconazole 100 mg Tablet 200 MG PO (08:33)
[2023-07-31] MEDS: amiodarone 200 mg Tablet PO (08:33)
[2023-07-31] MEDS: guaiFENesin 600 mg Tablet 1200 MG PO ×2 (08:33→17:17)
[2023-07-31] MEDS: pantoprazole DR 40 mg Tablet PO ×2 (08:33→17:18)
[2023-07-31] MEDS: methylPREDNISolone sod succ 40 mg/mL INJ IVP (08:33)
[2023-07-31] MEDS: ferrous sulfate EC 325 mg Tablet PO (08:34)
[2023-07-31] MEDS: budesonide 0.5 mg/2 mL Neb INHALATION ×2 (08:55→20:42)
[2023-07-31 12:22] LABS: Glucose Point of Care 167 mg/dL (70-110)
[2023-07-31] MEDS: insulin lispro 100 unit/1 mL SUBCUT ×3 (12:37→21:20)
--- NOTE | 2023-07-31 13:26 | PM.PN ---
Subjective Subjective: No acute events overnight. Patient has remained hemodynamically stable and afebrile. Patient states she is feeling better. Currently on 4 L of oxygen supplementation saturating more than 90%. Does complain of anxiety in knowing that she will have to go back to the same [place] [facility]. Given lab holiday today. Heart rate better controlled. Patient refusing to go back to same SNF. Vitals/I&O/Wt Last Vital Signs Temp 98.8 F 07/31/23 11:23 Pulse 65 07/31/23 11:23 Resp 24 H 07/31/23 11:23 BP 128/67 07/31/23 11:23 Pulse Ox 87 L 07/31/23 11:23 O2 Del Method Nasal Cannula 07/31/23 11:23 O2 Flow Rate 4 07/31/23 08:58 FiO2 40 07/31/23 03:45 07/30/23 07/31/23 07/31/23 22:59 06:59 14:59 Intake Total 240 / 720 340 / 1060 480 / 480 Output Total 700 / 1030 3400 / 4430 700 / 700 Balance -460 / -310 -3060 / -3370 -220 / -220 Weight last 48 hrs Weight 120.565 kg Weight 120.202 kg Weight 120.712 kg Weight 121.381 kg Physical Exam Const: COMMON NORMALS: patient oriented x3 and alert GENERAL APPEARANCE: cooperative NUTRITIONAL APPEARANCE: obese ORIENTATION/CONSCIOUSNESS: Yes awake HENMT: COMMON NORMALS: oropharynx normal Neck/C-Spine: COMMON NORMALS: no JVD Resp: AUSCULTATION: rhonchi, wheezes ( mild) and diminished lung sounds Cardio: COMMON NORMALS: no JVD, regular rhythm, S1 normal heart sound present, S2 normal heart sound present and No murmurs present (Cardio) RHYTHM: regular rhythm HEART SOUNDS: S1 normal heart sound present and S2 normal heart sound present GI: COMMON NORMALS: Normal to inspection, nondistended, normoactive bowel sounds present, Soft to palpation and non-tender PALPATION: Yes Soft to palpation Extremity: COMMON NORMALS: no joint enlargement and no pedal edema Neuro: COMMON NORMALS: patient oriented x3 and moves all extremities SENSORIUM/ORIENTATION: Yes alert Skin: COMMON NORMALS: no rashes or lesions noted GENERAL SKIN EXAM: no rashes or lesions noted Urinary Catheter Management: Vaughan: Cath Placed During This Visit: yes Reason for Continuing Indwelling Catheter: Accurate Measurement of Urinary Output in Critically Ill Patients Urinary Catheter Date of Insertion: 07/28/23 Urinary Catheter Time of Insertion: 16:17 Data 07/30/23 03:19 07/30/23 03:19 A&P Assessment and plan (1) Acute exacerbation of chronic obstructive airways disease: In setting of recent COVID-19 pneumonia along with possibility of left lower lobe pneumonia. Most likely in setting of no CPAP at the [place] [facility] along with discontinuation of baseline inhalation treatment. Continue with Solu-Medrol 40 mg every 12 hourly. Will wean down further within the next 24 hours. Finished course of IV antibiotics for Klebsiella pneumonia on 07/26. Switch DuoNebs to ipratropium, Xopenex every 4 hour, Pulmicort twice daily. Out of bed to chair. Tessalon Perles every 8 hourly, aggressive pulmonary toilet. Current fluconazole to finish a 7-day course. (2) Atrial fibrillation with RVR: Heart rate trending up on minimal ambulation. Cardizem increased to 240 mg daily. Add metoprolol 25 mg twice daily. Continue with Xarelto for anticoagulation. (3) CHF (congestive heart failure): Last echocardiogram from 03/20 shows an EF of 60 to 65%, grade 2 diastolic dysfunction. Patient having occasional episodes of A-fib with RVR. Continue with IV Lasix 40 mg daily. Patient developing contraction alkalosis today. Switch to oral Lasix 40 mg daily from tomorrow. Add Diamox 500 mg daily. Monitor BMP daily for now. Strict input charting, daily weights. Vaughan catheterization. (4) Community acquired pneumonia: Recent sputum culture positive for MDRO Klebsiella. Finish course of antibiotics on 07/26. (5) Klebsiella pneumonia: Recent MDRO Klebsiella pneumonia on review of sputum culture. (6) Transaminitis: Stable (7) Chest pain: Present on admission. Troponin cycled trending down. Given worsening of respiratory status on and off we will repeat troponin cycle. (8) Anticoagulation adequate with anticoagulant therapy: (9) Essential hypertension: Goal blood pressure less than 140/90 mmHg. Blood pressure stable. Continue with increased dose of Cardizem and new dose of metoprolol for now. Continue to monitor. (10) Diabetes: Plan ARJUN: BiPAP nightly for sleep apnea. DM2: Accu-Cheks, sliding scale insulin. Hemoptysis: Resolved, has been restarted on Xarelto which she has been tolerating. CHF: Continue Lasix, received IV dose of Lasix in the ER for possible exacerbation. Difficult to assess volume status. Reassess. DC Vaughan catheter. Multiple other medical problems. DNR/DNI. Carb consistent cardiac diet Protonix for PUD prophylaxis Xarelto will suffice as DVT prophylaxis. Plan for the day: Continue with Cardizem at current dose. Continue with metoprolol 12.5 mg twice daily. Heart rate better controlled. Continue with current dose of Solu-Medrol, Diamox, Lasix. Continue with fluid restriction up to 1500 cc. Out of bed to chair. Monitor CBC and CMP. Discussed discharge plan in detail with the patient. She does not want to go back to the same SNF. Discussed if patient would want to go to other SNF. She states she is not sure. We discussed for now she would need help around her ADLs. Patient lives by herself with her daughter few blocks away though daughter is leaving for vacation for couple of weeks. Case management consult placed. Attestations Medical Necessity Statement*: Requires further hospitalization for management of acute on chronic hypoxic respiratory failure in setting of congestive heart failure, COPD exacerbation in a patient with recent Klebsiella pneumonia, COVID, A-fib with RVR while safe discharge planning is sought. Diagnoses Acute exacerbation of chronic obstructive airways disease J44.1 Atrial fibrillation with RVR I48.91 CHF (congestive heart failure) I50.9 Community acquired pneumonia J18.9 Klebsiella pneumonia J15.0 Transaminitis R74.01 Chest pain R07.9 Anticoagulation adequate with anticoagulant therapy Z79.01 Essential hypertension I10 Diabetes E11.9
[2023-07-31 17:05] LABS: Glucose Point of Care 182 mg/dL (70-110)
[2023-07-31] MEDS: rivaroxaban 10 mg Tablet 20 MG PO (17:18)
[2023-07-31 20:37] LABS: Glucose Point of Care 302 mg/dL (70-110)
[2023-08-01] VITALS (92 sets, daily range): BP systolic 112–132; BP diastolic 52–75; PULSE 58–85; RESP 16–32; TEMP 35.7–36.7; O2SAT 83–100
[2023-08-01] MEDS: ipratropium 0.5 mg/2.5 mL Neb INHALATION ×4 (02:48→19:55)
[2023-08-01] MEDS: levalbuterol 0.63 mg/3 mL Neb INHALATION ×4 (02:48→19:55)
[2023-08-01] MEDS: allopurinol 100 mg Tablet PO (05:35)
[2023-08-01] MEDS: dilTIAZem ER (24HR) 240 mg Capsule PO (05:35)
[2023-08-01 06:07] LABS: Glucose Point of Care 158 mg/dL (70-110)
[2023-08-01 06:26] LABS: Basophils % 0.1 %; Eosinophils % 0.1 %; Hematocrit 38.6 % (36-47); Lymphocytes # 0.6 10^3/uL (0.8-4.8); Lymphocytes % 3.4 %; Mean Corpuscular HGB Conc 28.2 g/dL (30-55); Mean Corpuscular Volume 95.5 fl (85-98); Mean Platelet Volume 9.1 fL (7.4-10.4); Monocytes # 1.1 10^3/uL (0.2-0.9); Monocytes % 6.8 %; Neutrophils # 14.33 10^3/uL (1.8-7.7); Neutrophils % 88.5 %; Nucleated Red Blood Cells % 0 %; Platelet Count 217 10^3/cmm (157-399); Red Blood Count 4.04 10^6/uL (3.85-5.65); White Blood Count 16.18 10^3/uL (3.29-11.43)
[2023-08-01 06:53] LABS: Alanine Aminotransferase 45 U/L (0-33); Albumin Level 2.9 g/dL (3.5-5.2); Alkaline Phosphatase 106 U/L (35-105); Anion Gap 3.1 (5-19); Aspartate Amino Transferase 12 U/L (0-32); Blood Urea Nitrogen 30 mg/dL (8-23); Calcium 10.1 mg/dL (8.5-10.5); Chloride 99 mmol/L (98-107); Globulin 2.2 g/dL (1.3-4.6); Glucose 128 mg/dL (65-115); Osmolality Calculated 300 mOsm/kg (285-295); Potassium 4.1 mmol/L (3.5-5.1); Sodium 141 mmol/L (136-145); Total Bilirubin 0.3 mg/dL (0.15-1.2); Total Protein 5.1 g/dL (6.6-8.7)
[2023-08-01 07:01] LABS: Carbon Dioxide 43 mmol/L (22-29)
[2023-08-01] MEDS: budesonide 0.5 mg/2 mL Neb INHALATION ×2 (07:47→19:55)
[2023-08-01] MEDS: insulin lispro 100 unit/1 mL SUBCUT ×4 (08:09→21:13)
[2023-08-01] MEDS: FUROsemide 40 mg Tablet PO (08:10)
[2023-08-01] MEDS: pantoprazole DR 40 mg Tablet PO ×2 (08:10→17:37)
[2023-08-01] MEDS: fluoxetine 20 mg Capsule 40 MG PO (08:10)
[2023-08-01] MEDS: acetaZOLAMIDE 250 mg Tablet 500 MG PO (08:11)
[2023-08-01] MEDS: ferrous sulfate EC 325 mg Tablet PO (08:11)
[2023-08-01] MEDS: fluconazole 100 mg Tablet 200 MG PO (08:12)
[2023-08-01] MEDS: guaiFENesin 600 mg Tablet 1200 MG PO ×2 (08:12→17:37)
[2023-08-01] MEDS: metoprolol tartrate 25 mg Tablet 12.5 MG PO ×2 (08:12→20:46)
[2023-08-01] MEDS: amiodarone 200 mg Tablet PO (08:12)
[2023-08-01] MEDS: methylPREDNISolone sod succ 40 mg/mL INJ IVP (08:12)
[2023-08-01 11:17] LABS: Glucose Point of Care 165 mg/dL (70-110)
--- NOTE | 2023-08-01 11:26 | PC.SOCIAL ---
IMM Updated Updated pt on IMM. No questions voiced. Provided pt a copy. Initialed, dated, & timed copy in chart.
--- NOTE | 2023-08-01 13:02 | XRR_ITS ---
PROCEDURE INFORMATION: Exam: XR Chest Exam date and time: 08/01/2023 2:16 PM Age: 73 years old Clinical indication: Shortness of breath; Additional info: Hypoxia TECHNIQUE: Imaging protocol: Radiologic exam of the chest. Views: 1 view. COMPARISON: 1. CR (CHEST, ) 07/28/2023 7:03 PM 2. CR (CHEST, ) 07/22/2023 1:32 PM 3. CR (CHEST, ) 07/16/2023 9:[address] angio chest [place] prot [id number] 07/13/2023 10:39 AM FINDINGS: Lungs: Decreased left lower lung opacification. Interval development of coarse heterogeneous left lung markings with interspersed air lucencies. Similar subtle right lower lung zone opacity. Pleural spaces: Possible trace left pleural effusion. No pneumothorax. Heart/Mediastinum: Stable cardiomegaly. Mitral annular calcification. Vasculature: Aortic arch atherosclerotic calcification. Bones/joints: Unremarkable. XR/XR chest 1V portable [id number] IMPRESSION: Although decreased left lower lung opacification and pleural effusion, interval development of heterogeneous coarsened left lung opacification may represent pneumonia or pneumonitis.
[2023-08-01] MEDS: acetaZOLAMIDE 250 mg Tablet PO (14:03)
[2023-08-01 14:50] LABS: NT Pro B Type Natriuretic Pept 1790 pg/mL (0-125)
[2023-08-01 17:03] LABS: Glucose Point of Care 308 mg/dL (70-110)
[2023-08-01] MEDS: rivaroxaban 10 mg Tablet 20 MG PO (17:37)
--- NOTE | 2023-08-01 21:42 | P.PN_ITS ---
Subjective 2 Subjective: She had worsening in her condition last night and overnight. This morning quiring 7 L by oxime mask. Coughing with somewhat productive cough. Vitals/I&O/Wt Last Vital Signs Temp 98.0 F 08/01/23 08:45 Pulse 69 08/01/23 20:55 Resp 22 H 08/01/23 20:55 BP 132/69 08/01/23 20:55 Pulse Ox 93 08/01/23 20:55 O2 Del Method BiPAP 08/01/23 20:09 O2 Flow Rate 4 08/01/23 19:55 FiO2 50 08/01/23 20:10 08/01/23 08/01/23 08/01/23 06:59 14:59 22:59 Intake Total 240 / 240 1040 / 1280 Output Total 1250 / 2460 1200 / 1200 Balance -1250 / -1740 -960 / -960 1040 / 80 Weight last 48 hrs Weight 120.202 kg Weight 121.109 kg Weight 120.565 kg Weight 120.202 kg Physical Exam 2 Const: COMMON NORMALS: patient oriented x3 and alert GENERAL APPEARANCE: c ooperative NUTRITIONAL APPEARANCE: obese ORIENTATION/CONSCIOUSNESS: Yes awake HENMT: COMMON NORMALS: oropharynx normal Neck/C-Spine: COMMON NORMALS: no JVD Resp: AUSCULTATION: rhonchi, wheezes ( mild) and diminished lung sounds Cardio: COMMON NORMALS: no JVD, regular rhythm, S1 normal heart sound present, S2 normal heart sound present and No murmurs present (Cardio) RHYTHM: regular rhythm HEART SOUNDS: S1 normal heart sound present and S2 normal heart sound present GI: COMMON NORMALS: Normal to inspection, nondistended, normoactive bowel sounds present, Soft to palpation and non-tender PALPATION: Yes Soft to palpation Extremity: COMMON NORMALS: no joint enlargement and no pedal edema Neuro: COMMON NORMALS: patient oriented x3 and moves all extremities S ENSORIUM/ORIENTATION: Yes alert Skin: COMMON NORMALS: no rashes or lesions noted GENERAL SKIN EXAM: no rashes or lesions noted Urinary Catheter Management: Vaughan: Cath Placed During This Visit: yes Reason for Continuing Indwelling Catheter: Accurate Measurement of Urinary Output in Critically Ill Patients Urinary Catheter Date of Insertion: 07/28/23 Urinary Catheter Time of Insertion: 16:17 Data 08/01/23 06:09 08/01/23 06:09 A&P Assessment and plan (1) Acute exacerbation of chronic obstructive airways disease: Improving/persistent pneumonia, severe COPD exacerbation. Worsening oxygenation overnight, requiring 7 L by OxyMask this morning. Reports productive cough, dyspnea. Rhonchi noted on exam. Repeat chest x-ray, noted some decrease in opacification left lower lobe, but some more diffuse changes noted on review of chest x-ray with concern for pneumonitis. Discussed with her we will repeat sputum culture. Discussed with pulmonology, requesting consultation. Noted alkalosis, added acetazolamide. She remains on Lasix. Checked NT-proBNP noted 1789. Improvement from prior. Reviewed CBC, noted leukocytosis 16.18. Neutrophilic. On review of prior records also noted that she has had aspiration, noted by speech therapy. Will assess by modified barium swallow. COVID-19 a month ago, PCR positive again during this hospitalization, difficult to say, but may be residual viral shedding from prior infection. Would doubt such a recent reinfection. Additional discussed with pulmonology noted yeast in sputum culture, but has completed 7-days of Diflucan therapy. Solu-Medrol has been decreased down to 40 mg daily, continue for now. Finished course of IV antibiotics for Klebsiella pneumonia on 07/26. Continue Xopenex every 4 hour, Pulmicort twice daily. Out of bed to chair. Tessalon Perles every 8 hourly, aggressive pulmonary toilet. (2) Atrial fibrillation with RVR: Reviewed heart rate, noted rate controlled. Heart rate trending up on minimal ambulation. Cardizem increased to 240 mg daily. Add metoprolol 25 mg twice daily. Continue with Xarelto for anticoagulation. (3) CHF (congestive heart failure): Continues on Lasix, reviewed chemistry, noted potassium WNL. BUN 30, creatinine 0.7. Reassess chemistry. NT-proBNP requested, reviewed, 1790, with improvement. Acetazolamide added 250 mg daily. Last echocardiogram from 03/20 shows an EF of 60 to 65%, grade 2 diastolic dysfunction. Patient having occasional episodes of A-fib with RVR. Continue with IV Lasix 40 mg daily. Patient developing contraction alkalosis today. Switch to oral Lasix 40 mg daily from tomorrow. Add Diamox 500 mg daily. Monitor BMP daily for now. Strict input charting, daily weights. Vaughan catheterization. (4) Community acquired pneumonia: Recent sputum culture positive for MDRO Klebsiella. Finish course of antibiotics on 07/26. (5) Klebsiella pneumonia: Recent MDRO Klebsiella pneumonia on review of sputum culture. (6) Transaminitis: Stable (7) Chest pain: Present on admission. Troponin cycled trending down. Given worsening of respiratory status on and off we will repeat troponin cycle. (8) Anticoagulation adequate with anticoagulant therapy: (9) Essential hypertension: Goal blood pressure less than 140/90 mmHg. Blood pressure stable. Continue with increased dose of Cardizem and new dose of metoprolol for now. Continue to monitor. (10) Diabetes: Plan ARJUN: BiPAP nightly for sleep apnea. DM2: Accu-Cheks, sliding scale insulin. Hemoptysis: Resolved, has been restarted on Xarelto which she has been tolerating. CHF: Continue Lasix, received IV dose of Lasix in the ER for possible exacerbation. Difficult to assess volume status. Reassess. DC Vaughan catheter. Multiple other medical problems. DNR/DNI. Carb consistent cardiac diet Protonix for PUD prophylaxis Xarelto will suffice as DVT prophylaxis. Attestations 2 Medical Necessity Statement*: Continue assessment and management of persistent pneumonia, COPD as ablation, CHF Diagnoses Acute exacerbation of chronic obstructive airways disease J44.1 Atrial fibrillation with RVR I48.91 CHF (congestive heart failure) I50.9 Community acquired pneumonia J18.9 Klebsiella pneumonia J15.0 Transaminitis R74.01 Chest pain R07.9 Anticoagulation adequate with anticoagulant therapy Z79.01 Essential hypertension I10 Diabetes E11.9
[2023-08-02] VITALS (124 sets, daily range): BP systolic 90–138; BP diastolic 49–86; PULSE 61–168; RESP 15–33; TEMP 36.2–36.8; O2SAT 84–99; BMI 42.5
[2023-08-02 00:40] LABS: Glucose Point of Care 339 mg/dL (70-110)
[2023-08-02] MEDS: ipratropium 0.5 mg/2.5 mL Neb INHALATION ×3 (02:12→20:53)
[2023-08-02] MEDS: levalbuterol 0.63 mg/3 mL Neb INHALATION ×3 (02:12→20:53)
[2023-08-02] MEDS: FUROsemide 10 mg/mL SDV 2mL 20 MG IVP (04:22)
[2023-08-02] MEDS: dilTIAZem ER (24HR) 240 mg Capsule PO (05:31)
[2023-08-02] MEDS: allopurinol 100 mg Tablet PO (05:31)
[2023-08-02] MEDS: insulin lispro 100 unit/1 mL SUBCUT ×3 (08:52→20:30)
[2023-08-02] MEDS: guaiFENesin 600 mg Tablet 1200 MG PO ×2 (08:52→17:54)
[2023-08-02] MEDS: fluoxetine 20 mg Capsule 40 MG PO (08:52)
[2023-08-02] MEDS: methylPREDNISolone sod succ 40 mg/mL INJ IVP (08:53)
[2023-08-02] MEDS: ferrous sulfate EC 325 mg Tablet PO (08:53)
[2023-08-02] MEDS: pantoprazole DR 40 mg Tablet PO ×2 (08:53→17:55)
[2023-08-02] MEDS: acetaZOLAMIDE 250 mg Tablet 500 MG PO (08:53)
[2023-08-02] MEDS: amiodarone 200 mg Tablet PO (08:53)
[2023-08-02] MEDS: FUROsemide 40 mg Tablet PO (08:53)
--- NOTE | 2023-08-02 09:30 | FL_ITS ---
WS: [id number] MODIFIED BARIUM SWALLOW TECHNIQUE: Modified barium swallow with speech therapy using multiple consistencies. FLUOROSCOPY TIME: 3min [id number] # of spot films: 1 CLINICAL INFORMATION: Oropharyngeal dysphagia COMPARISON: None. FINDINGS: Multiple consistencies utilized. Delayed oropharyngeal phase with early spillage. Pooling in the vall ecula. Penetration with small amount of aspiration with nectar consistency. Penetration visualized with thin liquids. No visualized noemi aspiration with thin liquids. No diffi culty with the barium tablet. IMPRESSION: 1. Delayed oropharyngeal phase with early spillage and pooling in the vallecula 2. Penetration with small amount of aspiration with nectar consistency. 3. No aspiration visualized with thin liquids.
[2023-08-02 10:37] LABS: Basophils % 0.1 %; Eosinophils % 0.2 %; Hematocrit 40.7 % (36-47); Lymphocytes # 0.7 10^3/uL (0.8-4.8); Lymphocytes % 3.5 %; Mean Corpuscular Hemoglobin 26.6 pg (27-33); Mean Corpuscular Volume 94.9 fl (85-98); Mean Platelet Volume 9.8 fL (7.4-10.4); Monocytes # 1.3 10^3/uL (0.2-0.9); Neutrophils # 16.37 10^3/uL (1.8-7.7); Neutrophils % 87.8 %; Nucleated Red Blood Cells % 0 %; Platelet Count 216 10^3/cmm (157-399); Red Blood Count 4.29 10^6/uL (3.85-5.65); White Blood Count 18.64 10^3/uL (3.29-11.43)
[2023-08-02 10:52] LABS: Blood Urea Nitrogen 26 mg/dL (8-23); Calcium 10.1 mg/dL (8.5-10.5); Chloride 96 mmol/L (98-107); Glucose 147 mg/dL (65-115); Osmolality Calculated 305 mOsm/kg (285-295); Sodium 144 mmol/L (136-145)
[2023-08-02 10:59] LABS: Anion Gap 7.9 (5-19); Carbon Dioxide 44 mmol/L (22-29); Potassium 3.9 mmol/L (3.5-5.1)
[2023-08-02] MEDS: metoprolol tartrate 25 mg Tablet 12.5 MG PO (11:44)
[2023-08-02] MEDS: acetaZOLAMIDE 250 mg Tablet PO (11:44)
--- NOTE | 2023-08-02 15:07 | P.CONIM_ITS ---
Providers/Reason For Consult 2 Consulting Physician/Specialty*: [facility] Reason for Consult*: Hypoxic/hypercapnic respiratory failure Attending Physician: Matthew Garcia Primary Care Provider: Sylvia Anthony MD History of Present Illness History of Present Illness 73-year-old Ms. Arielle Carlos with past medical history of COPD, obesity, ARJUN, osteoarthritis of bilateral knees and hip, A. fib on anticoagulation, history of thoracotomy for lung biopsy in 2001 . Last pulmonary clinic visit 02/24/2023 she is a known patient in pulmonary clinic for COPD, ARJUN-last pulmonary clinic visit on 02/24/2023. Did not need any exacerbations in past 1 year. Reported losing 60 LB's over last 2 years in order to get hip and knee replacement.Diagnosed with ARJUN few years ago and currently using Trilogy AVAPS for the last 2 years and says that she has no complaints and is extremely happy that she is using the machine. Patient smoked on average 2 packs/day for more than 40 years and quit in 2009. Currently she uses Breztri as outpatient and albuterol as needed. Admitted in February 2023-03/23/2023 for septic shock secondary to E. coli septicemia, acute cholecystitis, A-fib RVR, CHF, CVA in February 2023-CT head 03/19/2023 suspicion for acute infarction involving brainstem. MRI 03/21/2023 did not show any abnormality. However since then patient is on dysphagia diet. 05/23/2023: She underwent laparoscopic subtotal cholecystectomy . Pathology came back chronic cholecystitis with cholelithiasis. Admitted 06/16/2023-06/21/2023: Admitted for sudden severe abdominal pain-found to have rectus sheath hematoma; 06/16/2023 urinalysis gross ESBL Klebsiella. CT abdomen pelvis showed suspicious right inguinal lymphadenopathy, questionable masslike enlargement along right side of her vaginal introitus. Fiuprkjn55/29/2023-06/29/2023: Admitted for respiratory distress-found to have COVID-19 pneumonia. S/p remdesivir. Sputum cultures positive for Klebsiella sensitive to Levaquin. Admitted 07/13/2023: Worsening shortness of breath-several episodes hemoptysis. hypercapnic and hypoxic respiratory failure. CHF exacerbation. Sputum culture- MDR Klebsiella except Carbapenem-treated with meropenem. Readmitted 07/22/2023:-Chest pain, A-fib RVR,Productive cough with yellow sputum Increasing FiO2 requirement-readmitted for acute exacerbation of COPD. She Is requiring 5 L nasal cannula (Baseline 4 L). During admission she was already on ertapenem for MDRO KlebsiellaAt longterm. during this admission; COVID PCR is again positive. Patient completed 6 weeks of meropenem on 07/26/2023.She was planned for dischargeAnd while waiting for transportation-patient went into A-fib RVRAnd became hypotensive.Her last echocardiogram 03/20/2023 showed EF 60 to 65% grade 2 diastolic dysfunction. She is on IV Lasix 40 Mg daily.She is on BiPAP at night time. Yesterday her oxygen requirements went up to 7 L and she was Having productive cough. Pulmonary critical care consult requestedFor this acute on chronic hypoxic/hypercapnic respiratory failure patient with underlying COPD, A-fib RVR, ESBL Klebsiella pneumonia. Today seen patient at bedside Patient is drowsy lying on her bradycardia; nurse reported patient just got hydrocodone-currently on 4 L nasal cannula Chest x-ray 08/01/2023 showed decreased left lower lung opacification and interval development of coarse heterogenous left lung markings with interspersed air lucencies. Findings suspicious with pneumonitis. She has metabolic alkalosis with carbon dioxide 44. I have recommended to give to 50 cc Ringer lactate; discontinue Lasix; change her at is Diamox to 500 Mg daily She had modified barium swallow today which showed delayed oropharyngeal phase with early spillage and pooling in vallecula. Penetration with small amount of aspiration with nectar consistency.Due to patient's difficulty with coordinating respiration-Speech therapy recommended bite-size diet with mildly thick liquids. Review of Systems 2 General: Reports: 10 or more systems reviewed and unremarkable except in HPI and below Medications/Allergies Home Medications Medication Instructions Recorded Confirmed Last Taken Type allopurinol 100 mg tablet 100 mg PO QAM 10/12/19 07/22/23 07/22/23 History albuterol sulfate 90 mcg/actuation 2 puff inhalation Q6H PRN 05/09/20 07/22/23 05/23/23 07:00 History aerosol inhaler Shortness Of Breath albuterol sulfate 2.5 mg/3 mL 2.5 mg inhalation Q4H PRN 1007/22/23 05/22/23 History (0.083 %) solution for nebulization Shortness Of Breath custom molded accommodative #1 ea 04/02/21 07/22/23 Unknown Rx orthotic oxygen-air delivery systems 01/27/22 07/22/23 Unknown History Diabetic Shoes with 3 pairs of #1 ea 08/10/22 07/22/23 Unknown Rx inserts budesonide 160 mcg-glycopyr 9 2 inh inhalation BID #10.7 grams 02/21/23 07/22/23 07/22/23 Rx mcg-formot 4.8 mcg/actuation HFA inhaler (Breztri CRE [employer]) diltiazem HCl 180 mg 180 mg PO QAM 03/17/23 07/22/23 07/22/23 History capsule,extended release 24 hr multivitamin 1 tab PO QAM 03/17/23 07/22/23 07/22/23 History omeprazole 40 mg capsule,delayed 40 mg PO BID 03/17/23 07/22/23 07/21/23 History release tolterodine 2 mg capsule,extended 2 mg PO QAM 03/17/23 07/22/23 07/22/23 History release 24 hr ondansetron 4 mg disintegrating 4 mg PO Q6H PRN nausea and 05/16/23 07/22/23 1 Week Ago Rx tablet vomiting #14 tabs ~06/19/23 amiodarone 200 mg tablet 200 mg PO DAILY #90 tabs 05/19/23 07/22/23 07/22/23 Rx hydrocodone 10 mg-acetaminophen 1 tab PO Q6H PRN pain #20 tabs 05/23/23 07/22/23 07/13/23 Rx 325 mg tablet docusate sodium 100 mg capsule 100 mg PO BID PRN Constipation 06/26/23 07/22/23 Unknown History ferrous sulfate 325 mg (65 mg 325 mg PO DAILY 06/26/23 07/22/23 07/22/23 History iron) tablet (Iron (ferrous sulfate)) fluoxetine 40 mg capsule 40 mg PO DAILY 06/26/23 07/22/23 07/22/23 History mupirocin 2 % topical ointment 1 applic topical BID PRN unknown 06/26/23 07/22/23 Unknown History rivaroxaban 20 mg tablet (Xarelto) 20 mg PO QPM 06/26/23 07/22/23 07/21/23 History triamcinolone acetonide 0.1 % 1 applic topical QID PRN unknown 06/26/23 07/22/23 Unknown History topical cream furosemide 20 mg tablet (Lasix) 20 mg PO DAILY #30 tabs 06/29/23 07/22/23 07/22/23 Rx potassium chloride 10 mEq 10 meq PO DAILY #30 caps 06/29/23 07/22/23 07/22/23 Rx capsule,extended release metformin 500 mg tablet 500 mg PO DAILY 07/22/23 07/22/23 07/22/23 History fluconazole 100 mg tablet 200 mg (2 x 100 mg) PO DAILY #7 07/26/23 Unknown Rx tabs ipratropium 0.5 mg-albuterol 3 mg 3 ml inhalation QID.RESPIRATORY 07/26/23 Unknown Rx (2.5 mg base)/3 mL nebulization #90 mL soln prednisone 10 mg tablet See Taper PO DIRECTED #42 tabs 07/26/23 Unknown Rx Allergies Allergy/AdvReac Type Severity Reaction Status Date / Time adhesive tape Allergy ALGY-Hives Verified 07/13/23 09:14 Current Medications Generic Name Dose Route Start Last Admin Trade Name Freq PRN Reason Stop Dose Admin Acetazolamide 500 mg 07/29/23 10:05 08/02/23 08:53 Acetazolamide 250 Mg Tablet PO 500 mg DAILY KELSEY Administration Acetazolamide 250 mg 08/01/23 13:05 08/02/23 11:44 Acetazolamide 250 Mg Tablet PO 250 mg DAILY KELSEY Administration Albuterol/Ipratropium 3 ml 07/22/23 16:40 07/23/23 02:30 Ipratropium-Albuterol 3 Ml Neb INHALATION 3 ml Q6H PRN Administration SHORTNESS OF BREATH Allopurinol 100 mg 07/23/23 06:00 08/02/23 05:31 Allopurinol 100 Mg Tablet PO 100 mg QAM KELSEY Administration Amiodarone HCl 200 mg 07/23/23 09:00 08/02/23 08:53 Amiodarone 200 Mg Tablet PO 200 mg DAILY KELSEY Administration Budesonide 0.5 mg 07/28/23 20:00 08/02/23 08:15 Budesonide 0.5 Mg/2 Ml Neb INHALATION Not Given BID.RESPIRATORY KELSEY Diltiazem HCl 240 mg 07/29/23 06:00 08/02/23 05:31 Diltiazem Er (24hr) 240 Mg Capsule PO 240 mg QAM KELSEY Administration Ferrous Sulfate 325 mg 07/23/23 09:00 08/02/23 08:53 Ferrous Sulfate Ec 325 Mg Tablet PO 325 mg DAILY KELSEY Administration Fluoxetine HCl 40 mg 07/23/23 09:00 08/02/23 08:52 Fluoxetine 20 Mg Capsule PO 40 mg DAILY KELSEY Administration Furosemide 40 mg 07/30/23 08:00 08/02/23 08:53 Furosemide 40 Mg Tablet PO 40 mg DAILY@0800 KELSEY Administration Guaifenesin 1,200 mg 07/24/23 09:00 08/02/23 08:52 Guaifenesin 600 Mg Tablet PO 1,200 mg BID KELSEY Administration Insulin Human Lispro 0 unit 07/22/23 18:00 08/02/23 13:09 Insulin Lispro 100 Unit/1 Ml SUBCUT Not Given WM&BEDTIME KELSEY Protocol Ipratropium [place] 0.5 mg 07/29/23 10:00 08/02/23 13:39 Ipratropium 0.5 Mg/2.5 Ml Neb INHALATION 0.5 mg Q6H.RESP KELSEY Administration Levalbuterol HCl 0.63 mg 07/29/23 14:00 08/02/23 13:39 Levalbuterol 0.63 Mg/3 Ml Neb INHALATION 0.63 mg Q6H.RESP KELSEY Administration Methylprednisolone Sodium Succinate 40 mg 07/31/23 09:00 08/02/23 08:53 Methylprednisolone Sod Succ 40 Mg/Ml Inj IVP 40 mg DAILY KELSEY Administration Metoprolol Tartrate 12.5 mg 07/30/23 21:00 08/02/23 11:44 Metoprolol Tartrate 25 Mg Tablet PO 12.5 mg BID@0900,2100 KELSEY Administration Non-Formulary Medication 2 mg 07/23/23 06:00 08/02/23 05:33 Tolterodine PO Not Given QAM [facility] Pantoprazole Sodium 40 mg 07/22/23 18:00 08/02/23 08:[address] 40 Mg Tablet PO 40 mg BID KELSEY Administration Rivaroxaban 20 mg 07/22/23 18:00 08/01/23 17:37 Rivaroxaban 10 Mg Tablet PO 20 mg QPM KELSEY Administration PFSH Acute 2 PFSH: Medical History Vaginal mass Rectus sheath hematoma Symptomatic cholelithiasis Acute calculous cholecystitis Plantar porokeratosis, acquired Callus of foot Chronic anticoagulation CVA (cerebral vascular accident) CHF (congestive heart failure) E. coli septicemia Bacteremia Thrombocytopenia Septic shock COPD (chronic obstructive pulmonary disease) sees Dr. Turner. No pertinent past medical history Denies seizures, DVT/PE PCP: Dr. Anthony Diabetic peripheral neuropathy associated with type 2 diabetes mellitus Onychodystrophy Gout Diagnosed in 2010 Psoriasis Diagnosed in 2011--not on any medication--sees Dr. Michael Osteoarthritis of knees, bilateral Osteoarthritis of right hip Anticoagulation adequate with anticoagulant therapy Xarelto Sleep apnea Essential hypertension Diagnosed in 2004 and is on medication managed by PMD Oxygen dependent Since 1999. Morbid obesity A-fib Diagnosed in [address] Sears/Dr. Gonzales Diabetes Diagnosed in 2012 and is managed by PMD Surgical History Status post laparoscopic cholecystectomy S/P appendectomy Performed [place] [address] Malik at [facility] in [place], [place] S/P tonsillectomy Performed [place] [address] Malik at [facility] in [place], [place] Status post lumbar surgery Lumbar surgery at L3/L4, performed in 1975 at [facility] S/P tubal ligation Laparoscopic procedure---performed [place] [address] Malik at [facility] in [place], [place] S/P partial thyroidectomy Performed [place] [address] Shelton at [facility] in [place], [place] S/P excision of lipoma Excision of Lipoma from the breast, performed in [address] Shelton at [facility] in [place], [place] Excision of Lipoma from the left breast, performed 11/22/[address] Agrawal at [facility] in [place], [place] S/P carpal tunnel release Carpal tunnel release on the right side, performed [place] [address] Moody at [place], [place] Carpal tunnel release on the left side, performed in [address] Medina at [place], [place] S/P dilation and curettage Performed in [address] Jones at [facility] in [place], [place] S/P hysterectomy Vaginal procedure---thinks that her ovaries were removed---performed in February [address] Jones at [facility] in [place], [place] S/P thoracotomy Performed in 2001 S/P trigger finger release Bilateral, performed in [address] Chaney at [place], [place] S/P cataract surgery Removal of cataract from the left eye [place] February [address] Ruby in [place], [place] Removal of cataract from the right eye in April [address] Ruby in [place], [place] Status post total hip replacement, right Right side---performed 07/08/[address] Keith at [facility] in [place], [place] Family History Father Diabetes Heart disease Sister Heart disease Breast cancer diagnosed in her 40s Denies family history of Colon cancer Ovarian cancer Hyperlipidemia Hypertension Uterine cancer Thyroid disease Stroke Social History Smoking and tobacco/nicotine status: former use of tobacco/nicotine Substance/Drug Use: never Do you think of yourself as: Straight/Heterosexual Vitals/I&O/Wt Last Vital Signs Temp 98.3 F 08/02/23 08:00 Pulse 73 08/02/23 14:09 Resp 25 H 08/02/23 13:42 BP 124/81 08/02/23 13:00 Pulse Ox 95 08/02/23 13:42 O2 Del Method Oxymask 08/02/23 13:42 O2 Flow Rate 6 08/02/23 13:42 FiO2 50 08/02/23 00:05 08/02/23 08/02/23 08/02/23 06:59 14:59 22:59 Intake Total 120 / 1400 Output Total 1100 / 2300 1700 / 1700 Balance -980 / -900 -1700 / -1700 Weight last 48 hrs Weight 263 lb 3 oz Weight 263 lb 3 oz Weight 265 lb Weight 267 lb Physical Exam 2 Narrative: General: alert, NAD HEENT: conj clear, EOMI, PERRL, mmm, Neck: supple, no meningismus Heme: no cervical LAP Respiratory: Inspection: No visible deformity of the chest wall Palpation: Trachea is mildly deviated to the right, bilateral symmetric expansion Percussion: Bilateral tympanic percussion note both anterior and posteriorly Auscultation: Bilateral clear to auscultation both anterior and posteriorly, no crackles wheezing or rhonchi Cardiovascular: rrr, nl s1s2, no mrg Abdomen: soft, nt, nd, no r/g, bs+ Extremities: pulses +, no edema, no c/c : no CVA tenderness Skin: intact, no rash MSK: no back or neck pain Neurologic: grossly intact Urinary Catheter Management: Vaughan: Cath Placed During This Visit: yes Reason for Continuing Indwelling Catheter: Accurate Measurement of Urinary Output in Critically Ill Patients Urinary Catheter Date of Insertion: 07/28/23 Urinary Catheter Time of Insertion: 16:17 Data 08/02/23 09:56 08/02/23 09:56 Other Labs: Radiology Impressions Chest X-Ray 08/01/23 13:02 IMPRESSION: Although decreased left lower lung opacification and pleural effusion, interval development of heterogeneous coarsened left lung opacification may represent pneumonia or pneumonitis. Laboratory Results WBC 18.64 10^3/uL (3.29-11.43) H 08/02/23 09:56 RBC 4.29 10^6/uL (3.85-5.65) 08/02/23 09:56 Hgb 11.40 g/dL (11.27-16.99) 08/02/23 09:56 Hct 40.7 % (36-47) 08/02/23 09:56 MCV 94.9 fl (85-98) 08/02/23 09:56 MCH 26.6 pg (27-33) L 08/02/23 09:56 MCHC 28.0 g/dL (30-55) L 08/02/23 09:56 RDW 15.0 % (12.1-15.1) 08/02/23 09:56 Plt Count 216 10^3/cmm (157-399) 08/02/23 09:56 MPV 9.8 fL (7.4-10.4) 08/02/23 09:56 Neut % (Auto) 87.8 % 08/02/23 09:56 Lymph % (Auto) 3.5 % 08/02/23 09:56 Oliver % (Auto) 7.0 % 08/02/23 09:56 Eos % (Auto) 0.2 % 08/02/23 09:56 Baso % (Auto) 0.1 % 08/02/23 09:56 Neut # (Auto) 16.37 10^3/uL (1.8-7.7) H 08/02/23 09:56 Lymph # (Auto) 0.7 10^3/uL (0.8-4.8) L 08/02/23 09:56 Oliver # (Auto) 1.3 10^3/uL (0.2-0.9) H 08/02/23 09:56 Eos # (Auto) 0.0 10^3/uL (0.0-0.8) 08/02/23 09:56 Baso # (Auto) 0.0 10^3/uL (0.0-0.1) 08/02/23 09:56 Nucleated RBC % (auto) 0 % 08/02/23 09:56 Nucleated RBCs # 0.0 /100WBC 08/02/23 09:56 Sodium 144 mmol/L (136-145) 08/02/23 09:56 Potassium 3.9 mmol/L (3.5-5.1) 08/02/23 09:56 Chloride 96 mmol/L (98-107) L 08/02/23 09:56 Carbon Dioxide 44 mmol/L (22-29) H* 08/02/23 09:56 Anion Gap 7.9 (5-19) 08/02/23 09:56 BUN 26 mg/dL (8-23) H 08/02/23 09:56 Creatinine 0.6 mg/dL (0.5-0.9) 08/02/23 09:56 GFR Calculation Not Reportable 08/02/23 09:56 Glucose 147 mg/dL (65-115) H 08/02/23 09:56 POC Glucose 339 mg/dL (70-110) H 08/01/23 21:03 Calculated Osmolality 305 mOsm/kg (285-295) H 08/02/23 09:56 Calcium 10.1 mg/dL (8.5-10.5) 08/02/23 09:56 Total Bilirubin 0.3 mg/dL (0.15-1.2) 08/01/23 06:09 AST 12 U/L (0-32) 08/01/23 06:09 ALT 45 U/L (0-33) H 08/01/23 06:09 Alkaline Phosphatase 106 U/L (35-105) H 08/01/23 06:09 Troponin T Baseline 22 ng/L (0-10) H 07/29/23 15:05 Troponin T 120 Minute 25.16 ng/L (0-10) H 07/29/23 17:08 Delta Troponin T 3.16 ABS# (0-10) 07/29/23 17:08 Troponin T Hi Sens 6Hr 21.50 ng/L (0-10) H 07/29/23 21:14 Troponin T Hi Sens 6Hr Delta -0.50 ng/L (0-12) L 07/29/23 21:14 NT-Pro-B Natriuret Pep 1790 pg/mL (0-125) H 08/01/23 14:02 Total Protein 5.1 g/dL (6.6-8.7) L 08/01/23 06:09 Albumin 2.9 g/dL (3.5-5.2) L 08/01/23 06:09 Globulin 2.2 g/dL (1.3-4.6) 08/01/23 06:09 Urine Color Yellow (Yellow) 07/22/23 14:28 Urine Appearance Clear (CLEAR) 07/22/23 14:28 Urine pH 7 (5-7) 07/22/23 14:28 Ur Specific [place] 1.010 (1.005-1.030) 07/22/23 14:28 Urine Protein Neg (Negative) 07/22/23 14:28 Urine Glucose (UA) Norm (Normal) 07/22/23 14:28 Urine Ketones Negative (Negative) 07/22/23 14:28 Urine Blood Neg (Negative) 07/22/23 14:28 Urine Nitrate Negative (Negative) 07/22/23 14:28 Urine Bilirubin Neg (Negative) 07/22/23 14:28 Urine Urobilinogen Norm mg/dL (Negative) 07/22/23 14:28 Ur Leukocyte Esterase Negative (Negative) 07/22/23 14:28 Nasal Influ A H1 2008 PCR Not detected (NOT DETECT) 07/22/23 16:30 Adenovirus (PCR) Not detected (NOT DETECT) 07/22/23 16:30 C. pneumoniae DNA (PCR) Not detected (NOT DETECT) 07/22/23 16:30 Coronavirus 229E (PCR) Not detected (NOT DETECT) 07/22/23 16:30 Human Metapneumovir PCR Not detected (NOT DETECT) 07/22/23 16:30 Influenza A (H1) PCR Not detected (NOT DETECT) 07/22/23 16:30 Influenza A (H3) PCR Not detected (NOT DETECT) 07/22/23 16:30 Influenza Type A (PCR) Not detected (NOT DETECT) 07/22/23 16:30 Influenza Type B (PCR) Not detected (NOT DETECT) 07/22/23 16:30 M. pneumoniae (PCR) Not detected (NOT DETECT) 07/22/23 16:30 Parainfluenza 1 (PCR) Not detected (NOT DETECT) 07/22/23 16:30 Parainfluenza 2 (PCR) Not detected (NOT DETECT) 07/22/23 16:30 Parainfluenza 3 (PCR) Not detected (NOT DETECT) 07/22/23 16:30 Parainfluenza 4 (PCR) Not detected (NOT DETECT) 07/22/23 16:30 RSV Type A (PCR) Not detected (NOT DETECT) 07/22/23 16:30 RSV Type B (PCR) Not detected (NOT DETECT) 07/22/23 16:30 Entero/Rhino (PCR) Not detected (NOT DETECT) 07/22/23 16:30 SARS-CoV-2 (PCR) Detected (NOT DETECT) A 07/22/23 16:30 A&P Assessment and plan (1) Klebsiella pneumonia: Qualifiers: Laterality: unspecified laterality Lung location: unspecified part of lung Qualified Code(s): J15.0 - Pneumonia due to Klebsiella pneumoniae (2) Acute exacerbation of chronic obstructive airways disease: (3) COPD (chronic obstructive pulmonary disease): Qualifiers: COPD type: emphysema Emphysema type: centrilobular Qualified Code(s): J43.2 - Centrilobular emphysema (4) CHF (congestive heart failure): Qualifiers: Heart failure type: diastolic Heart failure chronicity: acute on chronic Qualified Code(s): I50.33 - Acute on chronic diastolic (congestive) heart failure (5) Respiratory failure with hypoxia and hypercapnia: Qualifiers: Chronicity: acute on chronic Qualified Code(s): J96.21 - Acute and chronic respiratory failure with hypoxia; J96.22 - Acute and chronic respiratory failure with hypercapnia (6) Physical deconditioning: Plan Acute on chronic hypercapnic/hypoxic respiratory failure in patient with underlying COPD/ARJUN/obesity hypoventilation syndrome Patient also has poor performance status-given multiple hospital admissions in the last 6 months-more recently suffered with ESBL Klebsiella and received prolonged course of meropenem Patient also has acute on chronic diastolic CHF-on Lasix as well as Diamox ABG suggestive of mixed chronic respiratory acidosis-with compensation as well as mild metabolic alkalosis due to diuresis Recommended to DC Lasix-continue Diamox 500 mg daily-will give 250 Mg Ringer lactate bolus for contraction alkalosis Patient also has stage II sacral decubitus and some superficial ulcers-resending hydrocodone Patient also has A-fib RVR-currently on amiodarone 200 Mg daily, Cardizem to 40 Mg daily, Xarelto As per modified barium swallow-today patient has a significant aspiration risk- diet modified to dysphagia stage IV Recommended to continue scheduled nebulizations, taper down steroids based on clinical response, use AVAPS at nighttime Given her poor performance status and multiple chronic comorbidities -or further contributing to faster decline in her functional status She needs aggressive physical therapy and pulmonary rehabilitation Reasonable goals of care with patient and next of kin is recommended to set expectations-for now patient is DO NOT INTUBATE and DO NOT RESUSCITATE; given her overall decreased quality of life she may have qualify for hospice Consult Attestations 2 Medical Necessity Statement: Defer to hospitalist Time Spent in Patient Care: Greater than 35 minutes (>than 50% of time spent in counselling and/or direct pt care on unit) . Critical Care Time: The high probability of a clinically significant, sudden or life threatening deterioration of the patient's [pulmonary, cardiac, neurological] system(s) required my full and direct attention, intervention and personal management. The critical care time is as shown. This time is in addition to time spent performing any reported procedures but includes the following: [x] Data and vital sign review and interpretation [x] Patient assessment, examination and intervention [x] Documentation [x] Medication orders and management Critical Care Time (min): 72 Coding Level of Care Code Acute Code for Chg Fwd Diagnoses Pneumonia due to Klebsiella pneumoniae, unspecified laterality, unspecified part of lung J15.0 Laterality: unspecified laterality Lung location: unspecified part of lung Acute exacerbation of chronic obstructive airways disease J44.1 Centrilobular emphysema J43.2 COPD type: emphysema Emphysema type: centrilobular Acute on chronic diastolic congestive heart failure I50.33 Heart failure type: diastolic Heart failure chronicity: acute on chronic Acute on chronic respiratory failure with hypoxia and hypercapnia J96.21; J96.22 Chronicity: acute on chronic Physical deconditioning R53.81 Time Spent (min) 72
[2023-08-02 17:37] LABS: Glucose Point of Care 158 mg/dL (70-110)
[2023-08-02] MEDS: rivaroxaban 10 mg Tablet 20 MG PO (17:54)
[2023-08-02] MEDS: HYDROcodone-acetaminophen 10-325 mg Tablet 1 TAB PO (17:55)
[2023-08-02 20:21] LABS: Glucose Point of Care 195 mg/dL (70-110)
--- NOTE | 2023-08-02 21:18 | PC.NURSE ---
Per Dr Mojica HS dose of Metroprolol not given due to decrease in BP of 89/62.
--- NOTE | 2023-08-02 21:35 | PM.PN ---
Subjective Subjective: Not much change in symptoms today although subjectively feels slightly better. Denies new developments. Vitals/I&O/Wt Last Vital Signs Temp 97.1 F L 08/02/23 19:14 Pulse 72 08/02/23 20:54 Resp 16 08/02/23 20:54 BP 116/67 08/02/23 19:14 Pulse Ox 97 08/02/23 20:54 O2 Del Method BiPAP 08/02/23 20:54 O2 Flow Rate 4 08/02/23 15:20 FiO2 50 08/02/23 20:54 08/02/23 08/02/23 08/02/23 06:59 14:59 22:59 Intake Total 120 / 1400 490 / 490 Output Total 1100 / 2300 1700 / 1700 710 / 2410 Balance -980 / -900 -1700 / -1700 -220 / -1920 Weight last 48 hrs Weight 119.38 kg Weight 119.38 kg Weight 120.202 kg Weight 121.109 kg Physical Exam Const: COMMON NORMALS: patient oriented x3 and alert GENERAL APPEARANCE: cooperative NUTRITIONAL APPEARANCE: obese ORIENTATION/CONSCIOUSNESS: Yes awake HENMT: COMMON NORMALS: oropharynx normal Neck/C-Spine: COMMON NORMALS: no JVD Resp: AUSCULTATION: diminished lung sounds Cardio: COMMON NORMALS: no JVD, regular rhythm, S1 normal heart sound present, S2 normal heart sound present and No murmurs present (Cardio) RHYTHM: regular rhythm HEART SOUNDS: S1 normal heart sound present and S2 normal heart sound present GI: COMMON NORMALS: Normal to inspection, nondistended, normoactive bowel sounds present, Soft to palpation and non-tender PALPATION: Yes Soft to palpation Extremity: COMMON NORMALS: no joint enlargement and no pedal edema Neuro: COMMON NORMALS: patient oriented x3 and moves all extremities SENSORIUM/ORIENTATION: Yes alert Skin: COMMON NORMALS: no rashes or lesions noted GENERAL SKIN EXAM: no rashes or lesions noted Urinary Catheter Management: Vaughan: Cath Placed During This Visit: yes Reason for Continuing Indwelling Catheter: Acute Urinary Retention or Obstruction Urinary Catheter Date of Insertion: 07/28/23 Urinary Catheter Time of Insertion: 16:17 Data 08/02/23 09:56 08/02/23 09:56 A&P Assessment and plan (1) Acute exacerbation of chronic obstructive airways disease: Unimproving/persistent pneumonia, severe COPD exacerbation. Continued elevated oxygen requirement 8 L by oxime mask. Unimproved condition with respiratory failure. Discussed with pulmonology, requested consultation as discussed with her. Appreciate assessment and recommendations. Pulmonology documentation reviewed. Concern for aspiration pneumonitis component. Additionally discussed with her modified barium swallow, discussed with speech therapy, noted at elevated risk of aspiration with thin liquids, added aspiration precautions. Diet adjusted to level 6 soft, bite sized, mildly thick liquids. Repeat sputum culture has been requested. Currently not on antibiotics after completion of the course pending further pulmonology assessment. CBC, BMP reviewed. Requested repeat studies. 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 COVID-19 a month ago, PCR positive again during this hospitalization, difficult to say, but may be residual viral shedding from prior infection. Would doubt such a recent reinfection. Yeast in sputum culture, but has completed 7-days of Diflucan therapy. Solu-Medrol has been decreased down to 40 mg daily, continue for now. Soft blood pressure, hold off on further decrease of Solu-Medrol for now. Monitor glucose at risk of hyperglycemia. At risk of PAD, continue PPI. Hypertension, monitor blood pressure. At risk of encephalopathy. Finished course of IV antibiotics for Klebsiella pneumonia on 07/26. Continue Xopenex every 4 hour, Pulmicort twice daily. Out of bed to chair. Tessalon Perles every 8 hourly, aggressive pulmonary toilet. (2) Atrial fibrillation with RVR: Reviewed heart rate, noted rate controlled. Heart rate trending up on minimal ambulation. Cardizem increased to 240 mg daily. On metoprolol 25 mg twice daily. Continue with Xarelto for anticoagulation. (3) CHF (congestive heart failure): Continues on Lasix. Acetazolamide 250 mg daily. Reviewed chemistry, reassess. Monitor HIPOLITO. Volume status. Blood pressure soft, Lasix held for now. Last echocardiogram from 03/20 shows an EF of 60 to 65%, grade 2 diastolic dysfunction. Patient had occasional episodes of A-fib with RVR. Patient developing contraction alkalosis today. Monitor BMP daily for now. Strict input charting, daily weights. Vaughan catheterization. (4) Community acquired pneumonia: Recent sputum culture positive for MDRO Klebsiella. Finish course of antibiotics on 07/26. (5) Klebsiella pneumonia: Recent MDRO Klebsiella pneumonia on review of sputum culture. (6) Transaminitis: Stable (7) Chest pain: Present on admission. Troponin cycled trending down. Given worsening of respiratory status on and off we will repeat troponin cycle. (8) Anticoagulation adequate with anticoagulant therapy: (9) Essential hypertension: Goal blood pressure less than 140/90 mmHg. Blood pressure stable. Continue with increased dose of Cardizem and new dose of metoprolol for now. Continue to monitor. (10) Diabetes: Plan ARJUN: BiPAP nightly for sleep apnea. DM2: Accu-Cheks, sliding scale insulin. Hemoptysis: Resolved, has been restarted on Xarelto which she has been tolerating. CHF: Has been on Lasix 40 mg daily, held for now. Monitor blood pressure. With some contraction alkalosis, acetazolamide 250 mg daily. Difficult to assess volume status. Reassess. Vaughan in place for monitoring HIPOLITO. Multiple other medical problems. DNR/DNI. Carb consistent cardiac diet Protonix for PUD prophylaxis Xarelto will suffice as DVT prophylaxis. Attestations Medical Necessity Statement*: Continue admission for assessment management of persistent respiratory failure, pneumonia, COPD exacerbation. Diagnoses Acute exacerbation of chronic obstructive airways disease J44.1 Atrial fibrillation with RVR I48.91 CHF (congestive heart failure) I50.9 Community acquired pneumonia J18.9 Klebsiella pneumonia J15.0 Transaminitis R74.01 Chest pain R07.9 Anticoagulation adequate with anticoagulant therapy Z79.01 Essential hypertension I10 Diabetes E11.9
[2023-08-02 22:26] LABS: ABG PH Result 7.35 (7.35-7.45); Alveolar-Arterial Oxygen Gradi 25.1 mmHg (5-10); Arterial Blood Gas Hematocrit 32.2 % (37-47); Base Excess ABG 15.6 mmol/L (-2.0-2.0); Blood Gas Allen Test Pos; Blood Gas Sample Site Radial, left; Blood Gas Sample Type Arterial; Carboxyhemoglobin 1.3 %THgb (0.4-20.1); HCO3 ABG 44.4 mmol/L (22-26); Ionized Calcium Level - ABG 1.4 mmol/L (1.1-1.4); Methemoglobin 0.6 % (0.4-1.5); Oxygen Device BIPAP; Oxygen Saturation ABG 93.8; PO2 ABG 71.7 mmHg (80.0-100.0); PO2 FiO2 Ratio Arterial Blood 0; Potassium Level - ABG 3.7 mmol/L (3.5-5.0); Total Hemoglobin 10.5 g/dL (12-16)
[2023-08-02 22:30] LABS: ABG PCO2 81.3 mmHg (35-45)
[2023-08-03] VITALS (22 sets, daily range): BP systolic 97–143; BP diastolic 54–82; PULSE 57–110; RESP 16–33; TEMP 36.4–36.9; O2SAT 72–97
--- NOTE | 2023-08-03 00:02 | PC.NURSE ---
Patient refusing to wear bipap at this time. NC in place
--- NOTE | 2023-08-03 00:18 | PC.NURSE ---
RT in to attempt to replace bipap at this time. Patient continues to refuse placement. Informed Dr Mojica. Will continue to monitor.
[2023-08-03] MEDS: levalbuterol 0.63 mg/3 mL Neb INHALATION ×3 (02:44→19:37)
[2023-08-03] MEDS: ipratropium 0.5 mg/2.5 mL Neb INHALATION ×4 (02:44→19:37)
[2023-08-03 03:29] LABS: Basophils % 0.1 %; Hematocrit 36.7 % (36-47); Lymphocytes # 0.3 10^3/uL (0.8-4.8); Lymphocytes % 2.5 %; Mean Corpuscular HGB Conc 28.9 g/dL (30-55); Mean Corpuscular Hemoglobin 26.8 pg (27-33); Mean Corpuscular Volume 92.9 fl (85-98); Mean Platelet Volume 9.3 fL (7.4-10.4); Monocytes # 0.6 10^3/uL (0.2-0.9); Monocytes % 4.3 %; Neutrophils # 11.86 10^3/uL (1.8-7.7); Neutrophils % 92.4 %; Nucleated Red Blood Cells % 0 %; Platelet Count 187 10^3/cmm (157-399); Red Blood Count 3.95 10^6/uL (3.85-5.65); Red Cell Distribution Width 14.9 % (12.1-15.1); White Blood Count 12.83 10^3/uL (3.29-11.43)
[2023-08-03 03:50] LABS: Anion Gap 6.1 (5-19); Blood Urea Nitrogen 30 mg/dL (8-23); Calcium 10.2 mg/dL (8.5-10.5); Chloride 95 mmol/L (98-107); Glucose 109 mg/dL (65-115); Osmolality Calculated 297 mOsm/kg (285-295); Potassium 4.1 mmol/L (3.5-5.1); Sodium 140 mmol/L (136-145)
[2023-08-03 04:07] LABS: Carbon Dioxide 43 mmol/L (22-29)
[2023-08-03] MEDS: allopurinol 100 mg Tablet PO (05:01)
[2023-08-03] MEDS: dilTIAZem ER (24HR) 240 mg Capsule PO (05:01)
[2023-08-03 06:06] LABS: Glucose Point of Care 129 mg/dL (70-110)
[2023-08-03] MEDS: methylPREDNISolone sod succ 40 mg/mL INJ IVP (08:19)
[2023-08-03] MEDS: fluoxetine 20 mg Capsule 40 MG PO (08:20)
[2023-08-03] MEDS: guaiFENesin 600 mg Tablet 1200 MG PO ×2 (08:20→17:21)
[2023-08-03] MEDS: pantoprazole DR 40 mg Tablet PO ×2 (08:20→17:21)
[2023-08-03] MEDS: ferrous sulfate EC 325 mg Tablet PO (08:20)
[2023-08-03] MEDS: acetaZOLAMIDE 250 mg Tablet 500 MG PO (08:21)
[2023-08-03] MEDS: amiodarone 200 mg Tablet PO (08:21)
--- NOTE | 2023-08-03 09:20 | PC.SOCIAL ---
IMM Updated Updated pt on IMM. No questions voiced. Provided pt a copy. Initialed, dated, & timed copy in chart.
[2023-08-03 12:04] LABS: Glucose Point of Care 288 mg/dL (70-110)
--- NOTE | 2023-08-03 12:14 | PC.NURSE ---
Provider is notified that nursing held her 0900 dose of metoprolol due to low blood pressures and her heart rate is in the 60-80 range.
[2023-08-03] MEDS: insulin lispro 100 unit/1 mL SUBCUT ×3 (12:23→20:34)
--- NOTE | 2023-08-03 13:40 | PC.NURSE ---
Patient has been refusing to wear the oxymask since lunch. Her O2 stats have been 79-89%.
[2023-08-03] MEDS: rivaroxaban 10 mg Tablet 20 MG PO (17:21)
[2023-08-03 18:48] LABS: Glucose Point of Care 303 mg/dL (70-110)
[2023-08-03] MEDS: budesonide 0.5 mg/2 mL Neb INHALATION (19:37)
[2023-08-03 20:24] LABS: Glucose Point of Care 232 mg/dL (70-110)
[2023-08-03] MEDS: metoprolol tartrate 25 mg Tablet 12.5 MG PO (20:34)
--- NOTE | 2023-08-03 21:06 | P.PN_ITS ---
Subjective 2 Subjective: She feels about the same, breathing feels unchanged. Not worse but not better either. Oxygenation is noted improved, did wean down back to 4 L nasal cannula with saturation up in high 90s. Vitals/I&O/Wt Last Vital Signs Temp 98.4 F 08/03/23 19:58 Pulse 74 08/03/23 19:58 Resp 21 H 08/03/23 19:58 BP 114/77 08/03/23 19:58 Pulse Ox 97 08/03/23 19:58 O2 Del Method Nasal Cannula 08/03/23 19:58 O2 Flow Rate 4 08/03/23 19:58 FiO2 50 08/02/23 23:35 08/03/23 08/03/23 08/03/23 06:59 14:59 22:59 Intake Total 600 / 1090 240 / 240 220 / 460 Output Total 800 / 3210 Balance -200 / -2120 240 / 240 220 / 460 Weight last 48 hrs Weight 117.798 kg Weight 117.798 kg Weight 119.38 kg Weight 119.38 kg Physical Exam 2 Narrative: Visited by family. Const: COMMON NORMALS: patient oriented x3 and alert GENERAL APPEARANCE: c ooperative NUTRITIONAL APPEARANCE: obese ORIENTATION/CONSCIOUSNESS: Yes awake HENMT: COMMON NORMALS: oropharynx normal Neck/C-Spine: COMMON NORMALS: no JVD Resp: AUSCULTATION: diminished lung sounds Cardio: COMMON NORMALS: no JVD, regular rhythm, S1 normal heart sound present, S2 normal heart sound present and No murmurs present (Cardio) RHYTHM: regular rhythm HEART SOUNDS: S1 normal heart sound present and S2 normal heart sound present GI: COMMON NORMALS: Normal to inspection, nondistended, normoactive bowel sounds present, Soft to palpation and non-tender PALPATION: Yes Soft to palpation Extremity: COMMON NORMALS: no joint enlargement and no pedal edema Neuro: COMMON NORMALS: patient oriented x3 and moves all extremities S ENSORIUM/ORIENTATION: Yes alert Skin: COMMON NORMALS: no rashes or lesions noted GENERAL SKIN EXAM: no rashes or lesions noted Urinary Catheter Management: Vaughan: Cath Placed During This Visit: yes Reason for Continuing Indwelling Catheter: Accurate Measurement of Urinary Output in Critically Ill Patients Urinary Catheter Date of Insertion: 07/28/23 Urinary Catheter Time of Insertion: 16:17 Data 08/03/23 03:15 08/03/23 03:15 A&P Assessment and plan (1) Acute exacerbation of chronic obstructive airways disease: Slow progress, but noted improvement in oxygenation, down to 4 L nasal cannula, oxygen saturation 90s. Subjectively not feeling much better. Discussed with pulmonology. Continue steroids, wean down as tolerating. Lasix held at current time, reassess chemistry with contraction alkalosis. Continue acetazolamide. Unimproving/persistent pneumonia, severe COPD exacerbation. Pulmonology documentation reviewed. Overall prognosis guarded. Unfortunately appears limited extent as to which she may improve despite having received appropriate treatment. Concern for aspiration pneumonitis component. Aspiration precautions. Dysphagia diet - level 6 soft, bite sized, mildly thick liquids. Repeat sputum culture has been requested. Currently not on antibiotics after completion of the course pending further pulmonology assessment. Reviewed CBC, BMP. ABG. Requested repeat studies. Reviewed telephonic case managermanager utilization review. COVID-19 a month ago, PCR positive again during this hospitalization, difficult to say, but may be residual viral shedding from prior infection. Would doubt such a recent reinfection. Yeast in sputum culture, but has completed 7-days of Diflucan therapy. Solu-Medrol has been decreased down to 40 mg daily, continue for now. Soft blood pressure, hold off on further decrease of Solu-Medrol for now. Monitor glucose at risk of hyperglycemia. At risk of PAD, continue PPI. Hypertension, monitor blood pressure. At risk of encephalopathy. Finished course of IV antibiotics for Klebsiella pneumonia on 07/26. Continue Xopenex every 4 hour, Pulmicort twice daily. Out of bed to chair. Tessalon Perles every 8 hourly, aggressive pulmonary toilet. (2) Atrial fibrillation with RVR: Reviewed heart rate, noted rate controlled. Heart rate trending up on minimal ambulation. Blood pressure had been soft, metoprolol dose held last night and this morning. Will hold metoprolol entirely as heart rate has been controlled and continues on Cardizem. Cardizem increased to 240 mg daily. On metoprolol 25 mg twice daily. Continue with Xarelto for anticoagulation. (3) CHF (congestive heart failure): Continues on Lasix. Acetazolamide 250 mg daily. Reviewed chemistry, reassess. Monitor HIPOLITO. Volume status. Blood pressure soft, Lasix held for now. Last echocardiogram from 03/20 shows an EF of 60 to 65%, grade 2 diastolic dysfunction. Patient had occasional episodes of A-fib with RVR. Patient developing contraction alkalosis today. Monitor BMP daily for now. Strict input charting, daily weights. Vaughan catheterization. Qualifiers: Heart failure chronicity: acute on chronic Heart failure type: d iastolic Qualified Code(s): I50.33 - Acute on chronic diastolic (congestive) heart failure (4) Community acquired pneumonia: Recent sputum culture positive for MDRO Klebsiella. Finish course of antibiotics on 07/26. (5) Klebsiella pneumonia: Recent MDRO Klebsiella pneumonia on review of sputum culture. Qualifiers: Laterality: unspecified laterality Lung location: unspecified part of lung Qualified Code(s): J15.0 - Pneumonia due to Klebsiella pneumoniae (6) Transaminitis: Stable (7) Chest pain: Present on admission. Troponin cycled trending down. Given worsening of respiratory status on and off we will repeat troponin cycle. (8) Anticoagulation adequate with anticoagulant therapy: (9) Essential hypertension: Goal blood pressure less than 140/90 mmHg. Blood pressure stable. Continue with increased dose of Cardizem and new dose of metoprolol for now. Continue to monitor. (10) Diabetes: Plan ARJUN: BiPAP nightly for sleep apnea. DM2: Accu-Cheks, sliding scale insulin. Hemoptysis: Resolved, has been restarted on Xarelto which she has been tolerating. CHF: Has been on Lasix 40 mg daily, held for now. Monitor blood pressure. With some contraction alkalosis, acetazolamide 250 mg daily. Difficult to assess volume status. Reassess. Vaughan in place for monitoring HIPOLITO. Multiple other medical problems. DNR/DNI. Carb consistent cardiac diet Protonix for PUD prophylaxis Xarelto will suffice as DVT prophylaxis. Attestations 2 Medical Necessity Statement*: Continue admission for assessment management of persistent respiratory failure, COPD exacerbation, possible aspiration pneumonitis. Diagnoses Acute exacerbation of chronic obstructive airways disease J44.1 Atrial fibrillation with RVR I48.91 Acute on chronic diastolic congestive heart failure I50.33 Heart failure chronicity: acute on chronic Heart failure type: diastolic Community acquired pneumonia J18.9 Pneumonia due to Klebsiella pneumoniae, unspecified laterality, unspecified part of lung J15.0 Laterality: unspecified laterality Lung location: unspecified part of lung Transaminitis R74.01 Chest pain R07.9 Anticoagulation adequate with anticoagulant therapy Z79.01 Essential hypertension I10 Diabetes E11.9
[2023-08-04] VITALS (10 sets, daily range): BP systolic 92–111; BP diastolic 57–72; PULSE 65–85; RESP 20–36; TEMP 36.2–36.6; O2SAT 89–97
[2023-08-04 04:13] LABS: Basophils % 0.2 %; Eosinophils % 0.1 %; Hematocrit 37.8 % (36-47); Lymphocytes # 0.5 10^3/uL (0.8-4.8); Lymphocytes % 2.7 %; Mean Corpuscular HGB Conc 28.8 g/dL (30-55); Mean Corpuscular Volume 93.6 fl (85-98); Mean Platelet Volume 9.6 fL (7.4-10.4); Monocytes # 0.9 10^3/uL (0.2-0.9); Monocytes % 5.4 %; Neutrophils # 14.96 10^3/uL (1.8-7.7); Nucleated Red Blood Cells % 0 %; Platelet Count 211 10^3/cmm (157-399); Red Blood Count 4.04 10^6/uL (3.85-5.65); Red Cell Distribution Width 15.1 % (12.1-15.1); White Blood Count 16.44 10^3/uL (3.29-11.43)
[2023-08-04 04:41] LABS: Anion Gap 6.5 (5-19); Blood Urea Nitrogen 27 mg/dL (8-23); Calcium 10.4 mg/dL (8.5-10.5); Carbon Dioxide 40 mmol/L (22-29); Chloride 97 mmol/L (98-107); Glucose 202 mg/dL (65-115); Osmolality Calculated 301 mOsm/kg (285-295); Potassium 3.5 mmol/L (3.5-5.1); Sodium 140 mmol/L (136-145)
[2023-08-04] MEDS: allopurinol 100 mg Tablet PO (04:58)
[2023-08-04] MEDS: dilTIAZem ER (24HR) 240 mg Capsule PO (04:58)
[2023-08-04 06:18] LABS: Glucose Point of Care 173 mg/dL (70-110)
[2023-08-04] MEDS: levalbuterol 0.63 mg/3 mL Neb INHALATION (07:33)
[2023-08-04] MEDS: ipratropium 0.5 mg/2.5 mL Neb INHALATION (07:33)
[2023-08-04] MEDS: budesonide 0.5 mg/2 mL Neb INHALATION (07:33)
[2023-08-04] MEDS: acetaZOLAMIDE 250 mg Tablet 500 MG PO (08:30)
[2023-08-04] MEDS: fluoxetine 20 mg Capsule 40 MG PO (08:30)
[2023-08-04] MEDS: pantoprazole DR 40 mg Tablet PO (08:31)
[2023-08-04] MEDS: guaiFENesin 600 mg Tablet 1200 MG PO (08:31)
[2023-08-04] MEDS: ferrous sulfate EC 325 mg Tablet PO (08:31)
[2023-08-04] MEDS: amiodarone 200 mg Tablet PO (08:31)
[2023-08-04] MEDS: insulin lispro 100 unit/1 mL SUBCUT ×2 (08:31→11:59)
[2023-08-04] MEDS: methylPREDNISolone sod succ 40 mg/mL INJ IVP (09:05)
[2023-08-04 11:14] LABS: Glucose Point of Care 191 mg/dL (70-110)
--- NOTE | 2023-08-04 22:58 | PM.DCS ---
Discharge Providers Date of Admission: 07/22/23 14:38 Date of Discharge: August 04, 2023 Attending Provider at Admission: Matthew Garcia Attending Provider at Discharge: Matthew Garcia Primary Care Provider: Sylvia Anthony MD Diagnoses at Discharge Discharge Diagnosis (1) Acute exacerbation of chronic obstructive airways disease: Status: Acute (2) Atrial fibrillation with RVR: Status: Acute (3) CHF (congestive heart failure): Status: Acute Qualifiers: Heart failure chronicity: acute on chronic Heart failure type: diastolic Qualified Code(s): I50.33 - Acute on chronic diastolic (congestive) heart failure (4) Community acquired pneumonia: Status: Acute (5) Klebsiella pneumonia: Status: Acute Qualifiers: Laterality: unspecified laterality Lung location: unspecified part of lung Qualified Code(s): J15.0 - Pneumonia due to Klebsiella pneumoniae (6) Transaminitis: Status: Acute (7) Chest pain: Status: Acute (8) Anticoagulation adequate with anticoagulant therapy: Status: Acute Permanent problem details: Xarelto (9) Essential hypertension: Status: Acute Permanent problem details: Diagnosed in 2004 and is on medication managed by PMD (10) Diabetes: Status: Acute Permanent problem details: Diagnosed in 2012 and is managed by PMD Reason for Visit Reason for Visit: sob Brief History: Arielle Cooper is a 73 year old female returns s/p a recent hospitalization due to complicated pneumonia with MDRO Klebsiella requiring treatment with intravenous carbapenem, prior to that had COVID about a month ago. Returns due to an episode of chest pain, atrial fibrillation earlier today, also with some more difficulty breathing, productive cough with yellow sputum, some increased oxygen requirement from 4 up to 5 L nasal cannula. She denies current chest pain or pressure. Denies worsening of pain with inspiration. She had been restarted on Xarelto and states continues on for several days at a halfway. Has not had any recurrence of hemoptysis. Hospital Course Hospital Course Patient was admitted to the hospital further evaluation and management of hypoxic arrest atrial failure in setting of COPD exacerbation most likely secondary to recent bacterial pneumonia and COVID-19. Patient stated that while at halfway she was not getting her nebulization treatment like she does at home along with CPAP not functioning. She was started on nebulization treatment along with IV steroids. She responded well to the treatment and is back to her baseline oxygen supplementation. She finished her IV course of antibiotics, PICC line was removed. She has been discharged on DuoNebs every 6 hour. retirement has been informed about need for CPAP to maintain patient's oxygen supplementation and preventing further COPD exacerbation. Case management has reached out to the SNF. Continue treatment with Cardizem, also with metoprolol for atrial fibrillation, heart rates now controlled. Somewhat softer blood pressure Last few days, de-escalated off metoprolol. During hospitalization completed course of Carbapenem, sputum culture also growing some yeast, possibly commensal, but did complete course of Diflucan given overall difficult and slow recovery. Wound care provided and will need to be continued for sacral decubital ulcer. Overall has had a difficult course with very slow improvement, over the last several months overall functional decline, generalized weakness. During hospitalization fluctuation of oxygenation, transient worsening up to 8 L OxyMask, overnight with AVAPS. Was also assessed by pulmonology. Received IV diuretics on the hospital for component of fluid overload. Additionally assessed by modified barium swallow with risk of aspiration with thin liquids, started on aspiration precautions, mildly thickened liquids. With lack of recurrent despite appropriate treatment, overall decline , high risk of continued decline, complications, elevated risk of readmission, mortality, hospice may be a reasonable consideration as well and discussed as an option. At current time she would like to attemp rehabilitation at SNF is also referred for pulm rehabilitation, but will also be interested in hearing more information regarding hospice services for her information. We discussed her condition and thought also with her daughter. Physical Exam Const: COMMON NORMALS: patient oriented x3 and alert GENERAL APPEARANCE: cooperative NUTRITIONAL APPEARANCE: obese ORIENTATION/CONSCIOUSNESS: Yes awake OTHER: Deconditioned/generally weak, HENMT: COMMON NORMALS: oropharynx normal Neck/C-Spine: COMMON NORMALS: no JVD Resp: AUSCULTATION: rhonchi, wheezes ( mild) and diminished lung sounds Cardio: COMMON NORMALS: no JVD, regular rhythm, S1 normal heart sound present, S2 normal heart sound present and No murmurs present (Cardio) RHYTHM: regular rhythm HEART SOUNDS: S1 normal heart sound present and S2 normal heart sound present GI: COMMON NORMALS: Normal to inspection, nondistended, normoactive bowel sounds present, Soft to palpation and non-tender PALPATION: Yes Soft to palpation Extremity: COMMON NORMALS: no joint enlargement and no pedal edema Neuro: COMMON NORMALS: patient oriented x3 and moves all extremities SENSORIUM/ORIENTATION: Yes alert Skin: COMMON NORMALS: no rashes or lesions noted GENERAL SKIN EXAM: no rashes or lesions noted Urinary Catheter Management: Vaughan: Cath Placed During This Visit: yes Reason for Continuing Indwelling Catheter: Acute Urinary Retention or Obstruction Urinary Catheter Date of Insertion: 07/28/23 Urinary Catheter Time of Insertion: 16:17 Discharge Data Studies Completed and Pending Completed Studies During Hospitalization Category Date Time Status CXRP [XR chest 1V portable [id number]] Routine Exams 08/01/23 13:02 Completed FL barium swallow modifd [id number] Routine Exams 08/02/23 09:30 Completed XR chest 1V portable [id number] Routine Exams 07/28/23 17:51 Completed XR chest 1V portable [id number] Stat Exams 07/22/23 13:09 Completed Radiology Impressions Chest X-Ray 08/01/23 13:02 IMPRESSION: Although decreased left lower lung opacification and pleural effusion, interval development of heterogeneous coarsened left lung opacification may represent pneumonia or pneumonitis. Laboratory Results WBC 16.44 10^3/uL (3.29-11.43) H 08/04/23 03:50 RBC 4.04 10^6/uL (3.85-5.65) 08/04/23 03:50 Hgb 10.90 g/dL (11.27-16.99) L 08/04/23 03:50 Hct 37.8 % (36-47) 08/04/23 03:50 MCV 93.6 fl (85-98) 08/04/23 03:50 MCH 27.0 pg (27-33) 08/04/23 03:50 MCHC 28.8 g/dL (30-55) L 08/04/23 03:50 RDW 15.1 % (12.1-15.1) 08/04/23 03:50 Plt Count 211 10^3/cmm (157-399) 08/04/23 03:50 MPV 9.6 fL (7.4-10.4) 08/04/23 03:50 Neut % (Auto) 91.0 % 08/04/23 03:50 Lymph % (Auto) 2.7 % 08/04/23 03:50 [place] % (Auto) 5.4 % 08/04/23 03:50 Eos % (Auto) 0.1 % 08/04/23 03:50 Baso % (Auto) 0.2 % 08/04/23 03:50 Neut # (Auto) 14.96 10^3/uL (1.8-7.7) H 08/04/23 03:50 Lymph # (Auto) 0.5 10^3/uL (0.8-4.8) L 08/04/23 03:50 [place] # (Auto) 0.9 10^3/uL (0.2-0.9) 08/04/23 03:50 Eos # (Auto) 0.0 10^3/uL (0.0-0.8) 08/04/23 03:50 Baso # (Auto) 0.0 10^3/uL (0.0-0.1) 08/04/23 03:50 Nucleated RBC % (auto) 0 % 08/04/23 03:50 Nucleated RBCs # 0.0 /100WBC 08/04/23 03:50 Specimen Type Arterial 08/02/23 22:15 Sample Site Radial, left 08/02/23 22:15 ABG pH 7.35 (7.35-7.45) 08/02/23 22:15 ABG pCO2 81.3 mmHg (35-45) H* 08/02/23 22:15 ABG pO2 71.7 mmHg (80.0-100.0) L 08/02/23 22:15 ABG PO2/FiO2 Ratio 0 08/02/23 22:15 ABG HCO3 44.4 mmol/L (22-26) H 08/02/23 22:15 ABG O2 Saturation 93.8 08/02/23 22:15 ABG Base Excess 15.6 mmol/L (-2.0-2.0) H 08/02/23 22:15 Michael Test Pos 08/02/23 22:15 A-a O2 Gradient 25.1 mmHg (5-10) H 08/02/23 22:15 Hematocrit 32.2 % (37-47) L 08/02/23 22:15 Hgb O2 Saturation 92.0 % (95-100) L 08/02/23 22:15 Carboxyhemoglobin 1.3 %THgb (0.4-20.1) 08/02/23 22:15 Methemoglobin 0.6 % (0.4-1.5) 08/02/23 22:15 Total Hemoglobin 10.5 g/dL (12-16) L 08/02/23 22:15 Sodium 140.0 mmol/L (131-143) 08/02/23 22:15 Potassium 3.7 mmol/L (3.5-5.0) 08/02/23 22:15 Glucose 165.0 mg/dL (70-115) H 08/02/23 22:15 Ionized Calcium 1.4 mmol/L (1.1-1.4) 08/02/23 22:15 O2 Delivery Device Bipap 08/02/23 22:15 FiO2 50.0 % 08/02/23 22:15 Ct Technologist ID Alewe 08/02/23 22:15 Sodium 140 mmol/L (136-145) 08/04/23 03:50 Potassium 3.5 mmol/L (3.5-5.1) 08/04/23 03:50 Chloride 97 mmol/L (98-107) L 08/04/23 03:50 Carbon Dioxide 40 mmol/L (22-29) H 08/04/23 03:50 Anion Gap 6.5 (5-19) 08/04/23 03:50 BUN 27 mg/dL (8-23) H 08/04/23 03:50 Creatinine 0.5 mg/dL (0.5-0.9) 08/04/23 03:50 GFR Calculation Not Reportable 08/04/23 03:50 Glucose 202 mg/dL (65-115) H 08/04/23 03:50 POC Glucose 191 mg/dL (70-110) H 08/04/23 10:57 Calculated Osmolality 301 mOsm/kg (285-295) H 08/04/23 03:50 Calcium 10.4 mg/dL (8.5-10.5) 08/04/23 03:50 Total Bilirubin 0.3 mg/dL (0.15-1.2) 08/01/23 06:09 AST 12 U/L (0-32) 08/01/23 06:09 ALT 45 U/L (0-33) H 08/01/23 06:09 Alkaline Phosphatase 106 U/L (35-105) H 08/01/23 06:09 Troponin T Baseline 22 ng/L (0-10) H 07/29/23 15:05 Troponin T 120 Minute 25.16 ng/L (0-10) H 07/29/23 17:08 Delta Troponin T 3.16 ABS# (0-10) 07/29/23 17:08 Troponin T Hi Sens 6Hr 21.50 ng/L (0-10) H 07/29/23 21:14 Troponin T Hi Sens 6Hr Delta -0.50 ng/L (0-12) L 07/29/23 21:14 NT-Pro-B Natriuret Pep 1790 pg/mL (0-125) H 08/01/23 14:02 Total Protein 5.1 g/dL (6.6-8.7) L 08/01/23 06:09 Albumin 2.9 g/dL (3.5-5.2) L 08/01/23 06:09 Globulin 2.2 g/dL (1.3-4.6) 08/01/23 06:09 Urine Color Yellow (Yellow) 07/22/23 14:28 Urine Appearance Clear (CLEAR) 07/22/23 14:28 Urine pH 7 (5-7) 07/22/23 14:28 Ur Specific [place] 1.010 (1.005-1.030) 07/22/23 14:28 Urine Protein Neg (Negative) 07/22/23 14:28 Urine Glucose (UA) Norm (Normal) 07/22/23 14:28 Urine Ketones Negative (Negative) 07/22/23 14:28 Urine Blood Neg (Negative) 07/22/23 14:28 Urine Nitrate Negative (Negative) 07/22/23 14:28 Urine Bilirubin Neg (Negative) 07/22/23 14:28 Urine Urobilinogen Norm mg/dL (Negative) 07/22/23 14:28 Ur Leukocyte Esterase Negative (Negative) 07/22/23 14:28 Nasal Influ A H1 2009 PCR Not detected (NOT DETECT) 07/22/23 16:30 Adenovirus (PCR) Not detected (NOT DETECT) 07/22/23 16:30 C. pneumoniae DNA (PCR) Not detected (NOT DETECT) 07/22/23 16:30 Coronavirus 229E (PCR) Not detected (NOT DETECT) 07/22/23 16:30 Human Metapneumovir PCR Not detected (NOT DETECT) 07/22/23 16:30 Influenza A (H1) PCR Not detected (NOT DETECT) 07/22/23 16:30 Influenza A (H3) PCR Not detected (NOT DETECT) 07/22/23 16:30 Influenza Type A (PCR) Not detected (NOT DETECT) 07/22/23 16:30 Influenza Type B (PCR) Not detected (NOT DETECT) 07/22/23 16:30 M. pneumoniae (PCR) Not detected (NOT DETECT) 07/22/23 16:30 Parainfluenza 1 (PCR) Not detected (NOT DETECT) 07/22/23 16:30 Parainfluenza 2 (PCR) Not detected (NOT DETECT) 07/22/23 16:30 Parainfluenza 3 (PCR) Not detected (NOT DETECT) 07/22/23 16:30 Parainfluenza 4 (PCR) Not detected (NOT DETECT) 07/22/23 16:30 RSV Type A (PCR) Not detected (NOT DETECT) 07/22/23 16:30 RSV Type B (PCR) Not detected (NOT DETECT) 07/22/23 16:30 Entero/Rhino (PCR) Not detected (NOT DETECT) 07/22/23 16:30 SARS-CoV-2 (PCR) Detected (NOT DETECT) A 07/22/23 16:30 Vitals Last Vital Signs Temp 97.9 F 08/04/23 08:00 Pulse 85 08/04/23 12:00 Resp 22 H 08/04/23 12:00 BP 111/66 08/04/23 12:00 Pulse Ox 92 08/04/23 12:00 O2 Del Method Nasal Cannula 08/04/23 12:00 O2 Flow Rate 4.5 08/04/23 02:00 FiO2 50 08/04/23 07:36 Discharge Plan Discharge Patient Disposition: Xfer SNF Condition: Stable Prescriptions: New ipratropium-albuterol 0.5 mg-3 mg(2.5 mg base)/3 mL Solution For Nebulization 3 ml inhalation QID.RESPIRATORY Qty: 90 0RF prednisone 10 mg tablet See Taper PO DIRECTED Qty: 42 0RF Taper: predniSONE 60-10 60 mg Daily for 2 Days and 0 Hour 50 mg Daily for 2 Days and 0 Hour 40 mg Daily for 2 Days and 0 Hour 30 mg Daily for 2 Days and 0 Hour 20 mg Daily for 2 Days and 0 Hour 10 mg Daily for 2 Days and 0 Hour Rx Instructions: see taper instructions Continued allopurinol 100 mg tablet 100 mg PO QAM albuterol sulfate 90 mcg/actuation HFA aerosol inhaler 2 puff INHALATION Q6H PRN (Reason: Shortness Of Breath) (DME) custom molded accommodative orthotic See Rx Instructions .ROUTE .MEDSUPPLY Qty: 1 0RF Rx Instructions: As directed albuterol sulfate 2.5 mg /3 mL (0.083 %) solution for nebulization 2.5 mg INHALATION Q4H PRN (Reason: Shortness Of Breath) amiodarone 200 mg tablet 200 mg PO DAILY Qty: 90 1RF (DME) oxygen-air delivery systems Device See Rx Instructions .Route Rx Instructions: 4 Liters per [place] (DME) Diabetic Shoes with 3 pairs of inserts See Rx Instructions .Route .MEDSUPPLY Qty: 1 0RF Rx Instructions: As directed by HOME [employer] 160-9-4.8 mcg/actuation HFA aerosol inhaler 2 inh inhalation BID Qty: 10.7 3RF multivitamin Tablet 1 tab PO QAM tolterodine 2 mg capsule,extended release 24hr 2 mg PO QAM diltiazem HCl 180 mg capsule,extended release 24hr 180 mg PO QAM omeprazole 40 mg capsule,delayed release(DR/EC) 40 mg PO BID hydrocodone-acetaminophen 10-325 mg tablet 1 tab PO Q6H PRN (Reason: pain) Qty: 20 0RF Rx Instructions: May take half of a tab at a time ondansetron 4 mg tablet,disintegrating 4 mg PO Q6H PRN (Reason: nausea and vomiting) Qty: 14 0RF triamcinolone acetonide 0.1 % Cream 1 applic TOPICAL QID PRN (Reason: unknown) ferrous sulfate [Iron (ferrous sulfate)] 325 mg (65 mg iron) Tablet 325 mg PO DAILY docusate sodium 100 mg Capsule 100 mg PO BID PRN (Reason: Constipation) mupirocin 2 % Ointment 1 applic TOPICAL BID PRN (Reason: unknown) Xarelto 20 mg Tablet 20 mg PO QPM Hold Instructions: Resume on 07/06/23. Rx Instructions: must administer with evening meal fluoxetine 40 mg capsule 40 mg PO DAILY potassium chloride 10 mEq capsule, extended release 10 meq PO DAILY Qty: 30 0RF furosemide [Lasix] 20 mg tablet 20 mg PO DAILY Qty: 30 0RF metformin 500 mg tablet 500 mg PO DAILY Discharge Orders: Discharge Order (Routine); Ordered 08/04/23 Ordered By: Matthew Garcia Referrals: [facility] [Outside] Sylvia Anthony MD [Primary Care Provider] - 08/05/23 9:15 am Datar,Dk Boogie MD [Physician] - 08/26/23 8:45 am Discharge Diet: As Directed and Diabetic Discharge Activity: Resume usual activity and Increase activity as tolerated Patient Instructions: Prednisone (By mouth) (predniSONE Intensol, Prednicot, Deltasone, Benny), Fluconazole (By mouth) (Diflucan), Ipratropium/Albuterol (By breathing), Heart Failure (DC), COPD (Chronic Obstructive Pulmonary Disease) (DC), Community Acquired Pneumonia (DC), CHF Stoplight, Opioid Safety Activity Restrictions/Additional Instructions: Please refer to pulmonary rehabilitation. Continue oxygen support, 4 L, AVAPS at night. Maintain strict aspiration precautions, dysphagia level 6 diet, soft and bite-size, with mildly thickened liquids. Please continue all inhalers as before, nebulization treatment has been added. Please make sure to use CPAP at your home setting at bedtime. Steroid taper as prescribed. Continue care for pressure ulcer, cover with foam dressing, reposition frequently. Add nutritional shakes to meals. Continue to monitor blood glucose for diabetes and insulin therapy. She would also like to get some more information about what hospice is and asked for her information. Discharge Attestations Time Spent in Discharge Care*: greater than 30 min Status at Discharge: Cognitive status at discharge: cognitively intact, Behavioral status at discharge: cooperative, Functional status at discharge: wheelchair bound, Overall status at discharge: patient is back to baseline Quality Metrics Clinical Quality Measures [ No reported AMI, CVA or VTE this stay] Coding Level of Care Code 19300 Total time (in minutes) for Discharge: 50 Diagnoses Acute exacerbation of chronic obstructive airways disease J44.1 Atrial fibrillation with RVR I48.91 Acute on chronic diastolic congestive heart failure I50.33 Heart failure chronicity: acute on chronic Heart failure type: diastolic Community acquired pneumonia J18.9 Pneumonia due to Klebsiella pneumoniae, unspecified laterality, unspecified part of lung J15.0 Laterality: unspecified laterality Lung location: unspecified part of lung Transaminitis R74.01 Chest pain R07.9 Anticoagulation adequate with anticoagulant therapy Z79.01 Essential hypertension I10 Diabetes E11.9
== END 2023-08-04 14:40 | disposition skilled nursing facility (03) | DRG 177 ==
LOC: ER 14:19 → MEDSURG 15:33 → CSU 07-29 11:59
PROVIDERS: Internal Medicine Pulmonary Disease; Student in an Organized Health Care Education/Training Program; Admitting Provider Internal Medicine; Emergency Provider Family Medicine; PCP Family Medicine; Visit Provider Internal Medicine
DX: J15.0 Pneumonia due to Klebsiella pneumoniae (principal); I50.33 Acute on chronic diastolic (congestive) heart failure; J96.21 Acute and chronic respiratory failure with hypoxia; J96.22 Acute and chronic respiratory failure with hypercapnia; Z16.12 Extended spectrum beta lactamase (ESBL) resistance; B37.89 Other sites of candidiasis; Z68.41 Body mass index [BMI] 40.0-44.9, adult; E87.3 Alkalosis; Z86.16 Personal history of COVID-19; J43.2 Centrilobular emphysema; I48.91 Unspecified atrial fibrillation; L89.152 Pressure ulcer of sacral region, stage 2; Z79.01 Long term (current) use of anticoagulants; Z79.84 Long term (current) use of oral hypoglycemic drugs; I11.0 Hypertensive heart disease with heart failure; Z86.73 Personal history of transient ischemic attack (TIA), and cerebral infarction without residual deficits; E11.42 Type 2 diabetes mellitus with diabetic polyneuropathy; M10.9 Gout, unspecified; E66.01 Morbid (severe) obesity due to excess calories; F41.9 Anxiety disorder, unspecified; R74.01 Elevation of levels of liver transaminase levels; I95.9 Hypotension, unspecified; Z87.01 Personal history of pneumonia (recurrent); Z66 Do not resuscitate; Z91.199 Patient's noncompliance with other medical treatment and regimen due to unspecified reason; G47.33 Obstructive sleep apnea (adult) (pediatric); Z87.891 Personal history of nicotine dependence; L40.9 Psoriasis, unspecified; Z99.81 Dependence on supplemental oxygen
CPT/HCPCS: 36415; 36416; 36573; 36592; 36600; 51702; 71045; 74230; 80048; 80051; 80053; 81003; 82330; 82805; 82962; 83880; 84484; 85025; 87070; 87106; 87205; 87486; 87581; 87633; 92611; 93005; 93010; 94640; 94660; 94664; 94762; 96372; 96374; 96375; 96376; 97110; 97162; 97530; 99285; C1751; J1100; J1335; J1815; J1940; J2185; J2920; J7120; J7512; J7614; J7626; J7644

== ENCOUNTER 2023-08-05 12:48 | Emergency (ER) | payer MEDICARE, OTHER, MEDICAID, SELFPAY ==
--- NOTE | 2023-08-05 12:52 | XR_ITS ---
WS: [id number] Portable AP upright chest, 08/05/2023 Clinical Data: dyspnea/cough Comparison: Portable chest, 08/01/2023 Findings: There our dense left lower lobe opacities which may represent chronic lung disease. Less li deirdre this density is acute pneumonia along with atelectasis and effusion. The right lung shows minima l patchy opacity over the lateral aspect of the right diaphragm which again could represent atelectas is and/or pneumonia. There is a shift of the heart and mediastinum from right to left. There are no n odules or masses. The aortic arch shows calcification and tortuosity. The heart is probably normal. N o pneumothorax is seen. The pulmonary vascularity is not increased. Impression: 1. Probable chronic lung changes in left lower lobe opacity. 2. Minimal right lower lobe opacity over lateral aspect of the diaphragm which could represent minima l pneumonia and/or atelectasis.
[2023-08-05 13:01] VITALS: BP 95/63; PULSE 78; RESP 20; TEMP 36.6; O2SAT 95; BMI 48.4
[2023-08-05 13:07] VITALS: PULSE 92; RESP 16; O2SAT 95
[2023-08-05] MEDS: ipratropium-albuterol 3 mL Neb INHALATION (13:07)
--- NOTE | 2023-08-05 13:19 | PC.PHAR ---
PT HERE FROM [facility] - MEDICATIONS VERIFIED USING MAR FROM FACILITY
[2023-08-05 13:22] LABS: Basophils % 0.1 %; Hematocrit 37.2 % (36-47); Lymphocytes # 0.3 10^3/uL (0.8-4.8); Lymphocytes % 2.2 %; Mean Corpuscular HGB Conc 29.3 g/dL (30-55); Mean Corpuscular Volume 92.3 fl (85-98); Mean Platelet Volume 10.3 fL (7.4-10.4); Monocytes # 0.6 10^3/uL (0.2-0.9); Monocytes % 4.7 %; Neutrophils % 92.2 %; Nucleated Red Blood Cells % 0 %; Platelet Count 213 10^3/cmm (157-399); Red Blood Count 4.03 10^6/uL (3.85-5.65); Red Cell Distribution Width 15.4 % (12.1-15.1); White Blood Count 11.82 10^3/uL (3.29-11.43)
[2023-08-05 13:26] LABS: ABG PH Result 7.35 (7.35-7.45); Arterial Blood Gas Hematocrit 34.1 % (37-47); Base Excess ABG 14.2 mmol/L (-2.0-2.0); Blood Gas Operator Identificat AMH; Blood Gas Sample Site Brachial, right; Blood Gas Sample Type Arterial; Carboxyhemoglobin 1.7 %THgb (0.4-20.1); HCO3 ABG 42.8 mmol/L (22-26); HGB O2 Sat 84.6 % (95-100); Ionized Calcium Level - ABG 1.4 mmol/L (1.1-1.4); Methemoglobin 0.6 % (0.4-1.5); Oxygen Device SIMPLE MASK; Oxygen Saturation ABG 86.6; PO2 ABG 60.5 mmHg (80.0-100.0); Potassium Level - ABG 3.8 mmol/L (3.5-5.0); Total Hemoglobin 11.1 g/dL (12-16)
[2023-08-05 13:27] LABS: ABG PCO2 77.7 mmHg (35-45)
[2023-08-05] MEDS: dexamethasone 10 mg/mL INJ IM (13:30)
[2023-08-05 13:36] VITALS: BP 95/63; PULSE 95; RESP 18; O2SAT 95
--- NOTE | 2023-08-05 13:36 | W.ED.SOB ---
HPI - SOB/Dyspnea General: Chief Complaint: Shortness of Breath/Dyspnea Stated Complaint: copd Time Seen by Provider: 08/05/23 12:51 Source: patient and EMS Mode of arrival: EMS History of Present Illness: HPI Narrative: 73-year-old presents emergency room poorly responsive and lethargic. She is recently hospitalized for COPD and congestive heart failure discharged yesterday they advised her to go home on hospice. No fever sweats or chills. Previous hospitalization notes reviewed and discussed with her attending from the discharge yesterday. She is difficult to arouse will answer questions briefly and then falls asleep immediately. MD elicited complaint: shortness of breath and cough Pertinent past history: COPD and congestive heart failure Onset (ago): hour(s) Context: recent illness Timing: constant Severity: moderate Exacerbating factors: exertion and coughing Relieving factors: oxygen, rest and bronchodilators Known history of: COPD and congestive heart failure Associated symptoms: Reports cough; Deny abdominal pain, chest pain, fever(s), rash or vomiting Treatment prior to arrival: oxygen and bronchodilator Review of Systems Const: Reports: fatigue and malaise; Denies: fever(s) or chills Card: Denies: chest pain Resp: Reports: dyspnea and wheezing GI: Denies: abdominal pain, vomiting or diarrhea PFSH ED PFSH: Medical History Vaginal mass Rectus sheath hematoma Symptomatic cholelithiasis Acute calculous cholecystitis Plantar porokeratosis, acquired Callus of foot Chronic anticoagulation CVA (cerebral vascular accident) CHF (congestive heart failure) E. coli septicemia Bacteremia Thrombocytopenia Septic shock COPD (chronic obstructive pulmonary disease) sees Dr. Turner. No pertinent past medical history Denies seizures, DVT/PE PCP: Dr. Anthony Diabetic peripheral neuropathy associated with type 2 diabetes mellitus Onychodystrophy Gout Diagnosed in 2010 Psoriasis Diagnosed in 2011--not on any medication--sees Dr. Michael Osteoarthritis of knees, bilateral Osteoarthritis of right hip Anticoagulation adequate with anticoagulant therapy Xarelto Sleep apnea Essential hypertension Diagnosed in 2004 and is on medication managed by PMD Oxygen dependent Since 1999. Morbid obesity A-fib Diagnosed in [address] Sears/Dr. Gonzales Diabetes Diagnosed in 2012 and is managed by PMD Surgical History Status post laparoscopic cholecystectomy S/P appendectomy Performed [place] [address] Malik at [facility] in [place], [place] S/P tonsillectomy Performed in [address] Malik at [facility] in [place], [place] Status post lumbar surgery Lumbar surgery at L3/L4, performed in 1975 at [facility] S/P tubal ligation Laparoscopic procedure---performed in [address] Malik at [place], [place] S/P partial thyroidectomy Performed in [address] Shelton at [place], [place] S/P excision of lipoma Excision of Lipoma from the breast, performed in [address] Shelton at [place], [place] Excision of Lipoma from the left breast, performed 11/22/[address] Agrawal at [place], [place] S/P carpal tunnel release Carpal tunnel release on the right side, performed [place] [address] [facility], [place] Carpal tunnel release on the left side, performed in [address] Medina at [place], [place] S/P dilation and curettage Performed in [address] Jones at [facility], [place] S/P hysterectomy Vaginal procedure---thinks that her ovaries were removed---performed in February [address] Jones at [place], [place] S/P thoracotomy Performed in 2001 S/P trigger finger release Bilateral, performed in [address] Chaney at [place], [place] S/P cataract surgery Removal of cataract from the left eye [place] February [address] Ruby in [place], [place] Removal of cataract from the right eye in April [address] Ruby in [place], [place] Status post total hip replacement, right Right side---performed 07/08/[address] Keith at [facility] in [place], [place] Family History Father Diabetes Heart disease Sister Heart disease Breast cancer diagnosed in her 40s Denies family history of Colon cancer Ovarian cancer Hyperlipidemia Hypertension Uterine cancer Thyroid disease Stroke Social History Smoking and tobacco/nicotine status: former use of tobacco/nicotine Substance/Drug Use: never Do you think of yourself as: Straight/Heterosexual Physical Exam Const: GENERAL APPEARANCE: lethargic ORIENTATION/CONSCIOUSNESS: Yes lethargic HENMT: COMMON NORMALS: normocephalic, atraumatic and hearing grossly normal bilaterally HEAD & SCALP: normocephalic and atraumatic Resp: EFFORT & INSPECTION: Yes respiratory distress and Yes labored AUSCULTATION: rhonchi and wheezes Cardio: COMMON NORMALS: regular rate, regular rhythm and No murmurs present (Cardio) RATE: regular rate RHYTHM: regular rhythm GI: COMMON NORMALS: Soft to palpation and No hepatosplenomegaly present AUSCULTATION: Yes normoactive bowel sounds PALPATION: Yes Soft to palpation, No Tenderness to palpation present (GI), No Guarding due to palpation present (GI) and Yes No hepatosplenomegaly present Extremity: COMMON NORMALS: normal to inspection, capillary refill normal, no clubbing, cyanosis or edema, no calf tenderness and no pedal edema Neuro: SENSORIUM/ORIENTATION: Yes lethargic Skin: COMMON NORMALS: no rashes or lesions noted GENERAL SKIN EXAM: no rashes or lesions noted Course Vital Signs: Vital signs: Vital Signs Temperature 97.8 F 08/05/23 13:01 Pulse Rate 101 H 08/05/23 16:07 Respiratory Rate 18 08/05/23 16:07 Blood Pressure 103/75 08/05/23 16:07 Pulse Oximetry 91 08/05/23 16:07 Oxygen Delivery Me thod Nasal Cannula 08/05/23 16:07 Oxygen Flow Rate 5 08/05/23 16:07 Fraction of Inspir ed Oxygen 35 08/05/23 15:45 MDM - SOB/Dyspnea Medical Decision Making Long discussion with the family and they have elected to return to the half-way on hospice we [facility] to help set this up they are planning on reevaluating in the morning we advised the patient's family of this they stated they had already established with [facility]. Will contact [facility] to let them know that the patient and family changed to [facility] is their preference. We did talk to [facility] c s s representative they asked us to sign a hospice care pack for her to initiate medicines tonight which we did with her discharge instructions. Medical Records I reviewed the patient's medical records. Lab Data I reviewed the patient's lab results. 08/05/23 12:15 08/05/23 12:15 Labs/Radiology: Laboratory Results WBC 11.82 10^3/uL (3.29-11.43) H 08/05/23 12:15 RBC 4.03 10^6/uL (3.85-5.65) 08/05/23 12:15 Hgb 10.90 g/dL (11.27-16.99) L 08/05/23 12:15 Hct 37.2 % (36-47) 08/05/23 12:15 MCV 92.3 fl (85-98) 08/05/23 12:15 MCH 27.0 pg (27-33) 08/05/23 12:15 MCHC 29.3 g/dL (30-55) L 08/05/23 12:15 RDW 15.4 % (12.1-15.1) H 08/05/23 12:15 Plt Count 213 10^3/cmm (157-399) 08/05/23 12:15 MPV 10.3 fL (7.4-10.4) 08/05/23 12:15 Neut % (Auto) 92.2 % 08/05/23 12:15 Lymph % (Auto) 2.2 % 08/05/23 12:15 [place] % (Auto) 4.7 % 08/05/23 12:15 Eos % (Auto) 0.0 % 08/05/23 12:15 Baso % (Auto) 0.1 % 08/05/23 12:15 Neut # (Auto) 10.90 10^3/uL (1.8-7.7) H 08/05/23 12:15 Lymph # (Auto) 0.3 10^3/uL (0.8-4.8) L 08/05/23 12:15 [place] # (Auto) 0.6 10^3/uL (0.2-0.9) 08/05/23 12:15 Eos # (Auto) 0.0 10^3/uL (0.0-0.8) 08/05/23 12:15 Baso # (Auto) 0.0 10^3/uL (0.0-0.1) 08/05/23 12:15 Nucleated RBC % (auto) 0 % 08/05/23 12:15 Nucleated RBCs # 0.0 /100WBC 08/05/23 12:15 Specimen Type Arterial 08/05/23 14:52 Sample Site Radial, left 08/05/23 14:52 ABG pH 7.38 (7.35-7.45) 08/05/23 14:52 ABG pCO2 69.1 mmHg (35-45) H* 08/05/23 14:52 ABG pO2 61.4 mmHg (80.0-100.0) L 08/05/23 14:52 ABG PO2/FiO2 Ratio 0 08/05/23 14:52 ABG HCO3 41.2 mmol/L (22-26) H 08/05/23 14:52 ABG O2 Saturation 91.3 08/05/23 14:52 ABG Base Excess 13.5 mmol/L (-2.0-2.0) H 08/05/23 14:52 Michael Test Pos 08/05/23 14:52 A-a O2 Gradient 18.0 mmHg (5-10) H 08/05/23 14:52 Hematocrit 34.4 % (37-47) L 08/05/23 14:52 Hgb O2 Saturation 89.4 % (95-100) L 08/05/23 14:52 Carboxyhemoglobin 1.4 %THgb (0.4-20.1) 08/05/23 14:52 Methemoglobin 0.6 % (0.4-1.5) 08/05/23 14:52 Total Hemoglobin 11.2 g/dL (12-16) L 08/05/23 14:52 Sodium 142.0 mmol/L (131-143) 08/05/23 14:52 Potassium 3.8 mmol/L (3.5-5.0) 08/05/23 14:52 Glucose 214.0 mg/dL (70-115) H 08/05/23 14:52 Ionized Calcium 1.4 mmol/L (1.1-1.4) 08/05/23 14:52 O2 Delivery Device Bipap 08/05/23 14:52 O2 Liters/Min 7.0 % 08/05/23 13:16 FiO2 40.0 % 08/05/23 14:52 Fairing Worker ID Marti 08/05/23 14:52 Sodium 140 mmol/L (136-145) 08/05/23 12:15 Potassium 4.3 mmol/L (3.5-5.1) 08/05/23 12:15 Chloride 96 mmol/L (98-107) L 08/05/23 12:15 Carbon Dioxide 40 mmol/L (22-29) H 08/05/23 12:15 Anion Gap 8.3 (5-19) 08/05/23 12:15 BUN 24 mg/dL (8-23) H 08/05/23 12:15 Creatinine 0.5 mg/dL (0.5-0.9) 08/05/23 12:15 GFR Calculation Not Reportable 08/05/23 12:15 Glucose 226 mg/dL (65-115) H 08/05/23 12:15 Calculated Osmolality 301 mOsm/kg (285-295) H 08/05/23 12:15 Calcium 10.5 mg/dL (8.5-10.5) 08/05/23 12:15 Total Bilirubin 0.6 mg/dL (0.15-1.2) 08/05/23 12:15 AST 17 U/L (0-32) 08/05/23 12:15 ALT 40 U/L (0-33) H 08/05/23 12:15 Alkaline Phosphatase 108 U/L (35-105) H 08/05/23 12:15 NT-Pro-B Natriuret Pep 3272 pg/mL (0-125) H 08/05/23 12:15 Total Protein 5.6 g/dL (6.6-8.7) L 08/05/23 12:15 Albumin 3.1 g/dL (3.5-5.2) L 08/05/23 12:15 Globulin 2.5 g/dL (1.3-4.6) 08/05/23 12:15 Procalcitonin 0.08 ng/mL (0-0.5) 08/05/23 12:15 All radiology interpretation(s) finalized by discharge Discharge Plan Discharge Patient Disposition: Home Clinical Impression: Acute exacerbation of chronic obstructive airways disease Respiratory failure with hypoxia and hypercapnia Qualifiers: Chronicity: acute on chronic Qualified Code(s): J96.21 - Acute and chronic respiratory failure with hypoxia COPD (chronic obstructive pulmonary disease) Qualifiers: COPD type: emphysema Emphysema type: centrilobular Qualified Code(s): J43.2 - Centrilobular emphysema Condition: Stable Prescriptions: New morphine concentrate 100 mg/5 mL (20 mg/mL) Solution 20 mg sublingual DIRECTED MDD N/A PRN (Reason: Pain/SOB) 14 Days Qty: 30 0RF Rx Instructions: 0.25ml-1ml q1H PRN may increase to 0.5ml-1ml Q1H PRN Dulcolax (bisacodyl) 10 mg Suppository 10 mg LA DAILY PRN (Reason: Constipation) Qty: 5 0RF Rx Instructions: 1 suppository per rectum every day PRN for constipation. atropine 1 % Drops 4 drp sublingual Q4H PRN (Reason: Secretions) Qty: 5 0RF Rx Instructions: 4 drops SL q 4 hours PRN for terminal congestion/excessive secretions. ondansetron 4 mg Tablet,Disintegrating 4 mg translingual Q4H PRN (Reason: Nausea) Qty: 5 0RF Rx Instructions: Dissolve 1 tablet under tongue every 4 hours PRN for nausea lorazepam 2 mg/mL Concentrate 2 mg sublingual Q4H PRN (Reason: Anxiety/Seizure) Qty: 30 0RF Rx Instructions: 0.25ml-1ml q4H PRN Anxiety/Seizure Start 0.25ml may increase to 0.5ml-1ml q4H Discontinued allopurinol 100 mg tablet 100 mg PO QAM multivitamin Tablet 1 tab PO QAM tolterodine 2 mg capsule,extended release 24hr 2 mg PO QAM omeprazole 40 mg capsule,delayed release(DR/EC) 40 mg PO BID hydrocodone-acetaminophen 10-325 mg tablet 1 tab PO Q6H PRN (Reason: pain) Qty: 20 0RF Rx Instructions: May take half of a tab at a time ondansetron 4 mg tablet,disintegrating 4 mg PO Q6H PRN (Reason: nausea and vomiting) Qty: 14 0RF triamcinolone acetonide 0.1 % Cream 1 applic TOPICAL QID PRN (Reason: Rash) ferrous sulfate [Iron (ferrous sulfate)] 325 mg (65 mg iron) Tablet 325 mg PO DAILY Xarelto 20 mg Tablet 20 mg PO QAM Hold Instructions: Resume on 08/01/23. Rx Instructions: must administer with evening meal potassium chloride 10 mEq capsule, extended release 10 meq PO DAILY Qty: 30 0RF metformin 500 mg tablet 500 mg PO DAILY prednisone 20 mg Tablet 20 mg PO DAILY magnesium hydroxide [Milk of Magnesia] 400 mg/5 mL Suspension 30 ml PO DAILY PRN (Reason: Constipation) No Action albuterol sulfate 90 mcg/actuation HFA aerosol inhaler 2 puff INHALATION Q6H PRN (Reason: Shortness Of Breath) (DME) custom molded accommodative orthotic See Rx Instructions .ROUTE .MEDSUPPLY Qty: 1 0RF Rx Instructions: As directed albuterol sulfate 2.5 mg /3 mL (0.083 %) solution for nebulization 2.5 mg INHALATION Q4H PRN (Reason: Shortness Of Breath) amiodarone 200 mg tablet 200 mg PO DAILY Qty: 90 1RF (DME) oxygen-air delivery systems Device See Rx Instructions .Route Rx Instructions: 4 Liters per NC (DME) Diabetic Shoes with 3 pairs of inserts See Rx Instructions .Route .MEDSUPPLY Qty: 1 0RF Rx Instructions: As directed by HOME Nathalietri Aerosphere 160-9-4.8 mcg/actuation HFA aerosol inhaler 2 inh inhalation BID Qty: 10.7 3RF diltiazem HCl 180 mg capsule,extended release 24hr 180 mg PO QAM docusate sodium 100 mg Capsule 100 mg PO BID PRN (Reason: Constipation) fluoxetine 40 mg capsule 40 mg PO DAILY furosemide [Lasix] 20 mg tablet 20 mg PO DAILY Qty: 30 0RF Dulcolax (bisacodyl) 10 mg Suppository 10 mg LA DAILY PRN (Reason: Constipation) ipratropium-albuterol 0.5 mg-3 mg(2.5 mg base)/3 mL solution for nebulization 3 ml inhalation QID PRN (Reason: Shortness Of Breath Or Wheezing) Discharge Orders: Discharge ED (Routine); Ordered 08/05/23 Ordered By: Donavan Fry Referrals: Sylvia Anthony MD [Primary Care Provider] - Discharge Diet: Advance as tolerated Discharge Activity: Increase activity as tolerated Patient Instructions: Opioid Safety, Pain Management Activity Restrictions/Additional Instructions: You are seen with hypercapnic respiratory failure in the emergency room. Given your long history and chronic medical issues was recommended that we return to the half-way focus on comfort cares and only on hospice hospice will see in the morning to further evaluate. Coding Level of Care Code ED Industrial Engineer for Belkys Herrera
--- NOTE | 2023-08-05 13:38 | ECG_ITS ---
[facility] Test Date: 2023-08-05 Pat Name: Arielle Cooper Department: Room: Gender: Female Medical Clerk: : 1950 Requested By: Donavan Abarca Order Number: [id number] Rocky MD: Mimi De Santiago M.D. Measurements Intervals Cabins Rate: 93 P: 0 DC: 0 QRS: -33 QRSD: 102 T: 91 QT: 270 QTc: 336 Interpretive Statements ATRIAL FIBRILLATION LEFT AXIS DEVIATION [QRS AXIS < -30] PATTERN CONSISTENT WITH PULMONARY DISEASE NONSPECIFIC ST & T-WAVE ABNORMALITY Compared to ECG 07/29/2023 17:13:39 Left-axis deviation now present T-wave abnormality now present Electronically Signed On 08-05-2023 16:08:26 VICE PRESIDENT AND PORTFOLIO MANAGER by Mimi De Santiago M.D. [id number]
[2023-08-05 13:41] VITALS: PULSE 108; RESP 29; O2SAT 95
[2023-08-05 13:43] LABS: Alanine Aminotransferase 40 U/L (0-33); Albumin Level 3.1 g/dL (3.5-5.2); Alkaline Phosphatase 108 U/L (35-105); Blood Urea Nitrogen 24 mg/dL (8-23); Calcium 10.5 mg/dL (8.5-10.5); Carbon Dioxide 40 mmol/L (22-29); Chloride 96 mmol/L (98-107); Globulin 2.5 g/dL (1.3-4.6); Glucose 226 mg/dL (65-115); Osmolality Calculated 301 mOsm/kg (285-295); Sodium 140 mmol/L (136-145); Total Bilirubin 0.6 mg/dL (0.15-1.2); Total Protein 5.6 g/dL (6.6-8.7)
[2023-08-05 13:48] LABS: Anion Gap 8.3 (5-19); Aspartate Amino Transferase 17 U/L (0-32); Potassium 4.3 mmol/L (3.5-5.1)
[2023-08-05 14:27] LABS: NT Pro B Type Natriuretic Pept 3272 pg/mL (0-125); Procalcitonin 0.08 ng/mL (0-0.5)
[2023-08-05 15:03] LABS: ABG PCO2 69.1 mmHg (35-45); ABG PH Result 7.38 (7.35-7.45); Arterial Blood Gas Hematocrit 34.4 % (37-47); Base Excess ABG 13.5 mmol/L (-2.0-2.0); Blood Gas Allen Test Pos; Blood Gas Operator Identificat WALCI; Blood Gas Sample Site Radial, left; Blood Gas Sample Type Arterial; Carboxyhemoglobin 1.4 %THgb (0.4-20.1); HCO3 ABG 41.2 mmol/L (22-26); HGB O2 Sat 89.4 % (95-100); Ionized Calcium Level - ABG 1.4 mmol/L (1.1-1.4); Methemoglobin 0.6 % (0.4-1.5); Oxygen Device BIPAP; Oxygen Saturation ABG 91.3; PO2 ABG 61.4 mmHg (80.0-100.0); PO2 FiO2 Ratio Arterial Blood 0; Potassium Level - ABG 3.8 mmol/L (3.5-5.0); Total Hemoglobin 11.2 g/dL (12-16)
[2023-08-05 15:45] VITALS: BP 88/27; PULSE 101; RESP 18; O2SAT 94
[2023-08-05 16:07] VITALS: BP 103/75; PULSE 101; RESP 18; O2SAT 91
== END 2023-08-05 18:22 | disposition home or self-care (01) ==
PROVIDERS: Emergency Provider Family Medicine; PCP Family Medicine
DX: J44.1 Chronic obstructive pulmonary disease with (acute) exacerbation (principal); J96.22 Acute and chronic respiratory failure with hypercapnia; J96.21 Acute and chronic respiratory failure with hypoxia; J43.2 Centrilobular emphysema; Z87.891 Personal history of nicotine dependence; Z51.5 Encounter for palliative care
CPT/HCPCS: 36415; 36600; 71045; 80051; 80053; 82330; 82805; 83880; 84145; 85025; 87040; 93005; 94640; 94660; 99285; J1100